=== PATIENT | male | born 1940 | race Caucasian/White ===

== ENCOUNTER → 2017-07-29 18:20 | Outpatient (CLI) | payer MEDICARE, OTHER, SELFPAY ==
[2017-07-29 18:22] LABS: Bacteria 0 SEEN /hpf (None Seen); Mucous, Urine 0 SEEN /hpf (<or=2+); Red Blood Cells-Urine 0 SEEN /hpf (0-5); Squamous Epithelial Cells - UA 0 SEEN /hpf (0-5); White Blood Cells 0 SEEN /hpf (0-5)
[2017-07-29 18:47] LABS: Color, Urine Yellow (Yellow); Glucose, Dipstick Normal (Normal); Ketone-Dipstick Negative (Negative); Leukocyte Esterase-Dipstick 25 /ul (Negative); Nitrite-Dipstick Negative (Negative); Occult Blood-Urine Negative /ul (Negative); Protein-Dipstick Negative (Negative); Urine Bilirubin Dipstick Negative (Negative); Urine Clarity Clear (Clear); Urine Urobilinogen Normal (Normal)
== END ==
PROVIDERS: Family Provider Internal Medicine; PCP Internal Medicine; Visit Provider Physician Assistant
DX: N39.0 Urinary tract infection, site not specified (principal); R10.9 Unspecified abdominal pain
CPT/HCPCS: 81001; 87086

== ENCOUNTER → 2017-08-10 13:16 | Outpatient (CLI) | payer MEDICARE, OTHER, SELFPAY ==
[2017-08-10 13:42] LABS: Absolute Lymphocyte Count 1.82 X10^3/ul (0.83-4.51); Absolute Neutrophil Count 5.2 X10^3/uL (2.0-7.7); Basophil# 0.01 X10^3/uL; Basophil% 0.1 % (0-1); Eosinophil# 0.11 X10^3/uL; Eosinophils% 1.4 % (0-5); Hematocrit 42.9 % (40-54); Lymphocyte # 1.82 X10^3/ul (4.0); Lymphocyte % 23.7 % (19-41); Mean Corpuscular Hgb 31.2 pg (27.0-32.0); Mean Corpuscular Volume 89.2 fL (80-94); Mean Platelet Vol. 9.9 fl (6.2-12.0); Monocyte# 0.48 X10^3/uL; Monocyte% 6.3 % (0-10); Neutrophil # 5.24 X10^3/uL (2.7-7.7); Neutrophil % 68.2 % (47-70); Platelet Count 212 K/mm3 (150-450); RBC Distribution Width CV 12.7 % (11.6-14.6); RBC Distribution Width SD 40.6 fl (35.1-43.9); Red Blood Count 4.81 M/mm3 (4.6-6.2); White Blood Count 7.7 K/mm3 (4.4-11.0)
[2017-08-10 13:44] LABS: POSITIVE COUNT NO; POSITIVE DIFFERENTIAL NO; POSITIVE MORPHOLOGY NO
[2017-08-10 14:10] LABS: ALB/GLOB Ratio 1.2 RATIO (0.9-2.4); AST(SGOT) 16 U/L (15-37); Alanine Aminotransfer ALT/SGPT 30 U/L (16-61); Albumin, Serum 4.2 g/dL (3.2-5.0); Alkaline Phosphatase 58 U/L (45-117); Anion Gap 6 (5-15); BUN 16 mg/dL (7-18); BUN/Creat Ratio 19.1 RATIO (10-20); Calcium,Total 9.3 mg/dL (8.5-10.1); Chloride 101 mmol/L (98-107); Creatinine, Serum 0.84 mg/dL (0.70-1.30); EST Glomerular Filtration Rate 95 mL/min (>60); Est Glom Filt Rate - Afr Amer 115 mL/min (>60); Globulin 3.5 g/dL (2.2-4.2); Glucose 130 mg/dL (74-106); Potassium 3.5 mmol/L (3.5-5.1); Protein, Total 7.7 g/dL (6.4-8.2); Sodium Level 137 mmol/L (136-145)
== END ==
PROVIDERS: Nurse Practitioner Family; Family Provider Internal Medicine; PCP Internal Medicine; Visit Provider Internal Medicine
DX: Z00.00 Encounter for general adult medical examination without abnormal findings (principal); I10 Essential (primary) hypertension
CPT/HCPCS: 36415; 80053; 85025

== ENCOUNTER → 2017-08-16 13:32 | Outpatient (CLI) | payer MEDICARE, OTHER, SELFPAY ==
[2017-08-16 13:34] LABS: Bacteria 0 SEEN /hpf (None Seen); Mucous, Urine 0 SEEN /hpf (<or=2+); Squamous Epithelial Cells - UA 0 SEEN /hpf (0-5); White Blood Cells 0 SEEN /hpf (0-5)
[2017-08-16 13:48] LABS: Color, Urine Yellow (Yellow); Glucose, Dipstick Normal (Normal); Ketone-Dipstick Negative (Negative); Leukocyte Esterase-Dipstick Negative /ul (Negative); Nitrite-Dipstick Negative (Negative); Occult Blood-Urine 10 /ul (Negative); Protein-Dipstick Negative (Negative); Specific Gravity, Urine 1.015 (1.002-1.030); Urine Bilirubin Dipstick Negative (Negative); Urine Clarity Clear (Clear); Urine Urobilinogen Normal (Normal)
[2017-08-16 13:56] LABS: Red Blood Cells-Urine 0-5 SEEN /hpf (0-5)
== END ==
PROVIDERS: Family Provider Internal Medicine; PCP Internal Medicine; Visit Provider Internal Medicine
DX: R10.31 Right lower quadrant pain (principal)
CPT/HCPCS: 81001

== ENCOUNTER → 2017-08-18 15:56 | Outpatient (CLI) | payer MEDICARE, OTHER, SELFPAY ==
--- NOTE | 2017-08-18 15:57 | CT_ITS ---
STUDY: CT ABDOMEN AND PELVIS WITH CONTRAST REASON FOR EXAM: Male, 76 years old. Right-sided abdominal pain RADIATION DOSAGE (If Supplied By Facility): CTDIvol = ( 16.94 ) mGy, DLP = ( 1089.01 ) mGycm TECHNIQUE: Transaxial images were obtained from the dome of the diaphragm to the symphysis pubis with oral contrast. 100ml ml of Isovue 300 contrast was administered. Sagittal and coronal images were reconstructed. Individualized dose optimization techniques were used for this CT. COMPARISON: None. FINDINGS: The visualized lung bases are clear. The visualized portions of the heart and pericardium are within normal limits. There are no calcified gallstones present. The liver is within normal limits. There are no suspicious hepatic lesions. The spleen is normal in size. The pancreas is within normal limits. The adrenal glands are within normal limits. There are no obstructing renal stones. There is no hydronephrosis. There are no focal renal lesions. Normal visualized stomach. There is no bowel obstruction or inflammation. The appendix is visualized and appears normal. The aorta is normal in caliber. There is no abdominal or pelvic free air, free fluid, fluid collection or lymphadenopathy. There are no destructive osseous lesions. CT/Abdomen/Pelvis WITH Contrast IMPRESSION: Unremarkable contrast-enhanced CT of the abdomen and pelvis. Electronically Signed: Kartik Givens, at 16:33 EDT Tel , Service support ,
== END ==
PROVIDERS: Family Provider Internal Medicine; PCP Internal Medicine; Visit Provider Internal Medicine
DX: R10.31 Right lower quadrant pain (principal)
CPT/HCPCS: 74177; Q9967

== ENCOUNTER → 2018-04-25 13:39 | Outpatient (CLI) | payer MEDICARE, SELFPAY ==
[2018-01-10 10:16] VITALS: BMI 25.2
== END ==
PROVIDERS: Family Provider Internal Medicine; PCP Internal Medicine; Referring Provider Urology; Visit Provider Urology
DX: Z12.5 Encounter for screening for malignant neoplasm of prostate (principal)
CPT/HCPCS: 36415; 84153; G0103

== ENCOUNTER → 2018-06-26 08:31 | Outpatient (CLI) | payer MEDICARE, SELFPAY ==
[2018-06-23 08:07] VITALS: BMI 26.1
[2018-06-26 12:51] LABS: Absolute Lymphocyte Count 1.51 X10^3/ul (0.83-4.51); Absolute Neutrophil Count 3.4 X10^3/uL (2.0-7.7); Basophil# 0.01 X10^3/uL; Basophil% 0.2 % (0-1); Eosinophil# 0.16 X10^3/uL; Eosinophils% 2.9 % (0-5); Hematocrit 43.4 % (40-54); Hemoglobin 14.5 g/dl (13.0-16.5); Lymphocyte # 1.51 X10^3/ul (4.0); Lymphocyte % 27.2 % (19-41); Mean Corp Hgb Conc 33.4 g/gl (32-36); Mean Corpuscular Volume 92.7 fL (80-94); Mean Platelet Vol. 10.3 fl (6.2-12.0); Monocyte# 0.43 X10^3/uL; Monocyte% 7.7 % (0-10); Neutrophil # 3.43 X10^3/uL (2.7-7.7); Neutrophil % 61.8 % (47-70); Platelet Count 211 K/mm3 (150-450); RBC Distribution Width CV 12.6 % (11.6-14.6); RBC Distribution Width SD 41.9 fl (35.1-43.9); Red Blood Count 4.68 M/mm3 (4.6-6.2); White Blood Count 5.6 K/mm3 (4.4-11.0)
[2018-06-26 12:52] LABS: POSITIVE COUNT NO; POSITIVE DIFFERENTIAL NO; POSITIVE MORPHOLOGY NO
[2018-06-26 13:09] LABS: ALB/GLOB Ratio 1.2 RATIO (0.9-2.4); AST(SGOT) 15 U/L (15-37); Alanine Aminotransfer ALT/SGPT 28 U/L (16-61); Albumin, Serum 3.9 g/dL (3.2-5.0); Alkaline Phosphatase 51 U/L (45-117); Anion Gap 6 (5-15); BUN 26 mg/dL (7-18); Calcium,Total 8.4 mg/dL (8.5-10.1); Chloride 107 mmol/L (98-107); Cholesterol 174 mg/dL (200); Creatinine, Serum 0.87 mg/dL (0.70-1.30); EST Glomerular Filtration Rate 91 mL/min (>60); Est Glom Filt Rate - Afr Amer 110 mL/min (>60); Globulin 3.2 g/dL (2.2-4.2); Glucose 93 mg/dL (74-106); High Density Lipoprotein 42 mg/dL; Potassium 3.6 mmol/L (3.5-5.1); Protein, Total 7.1 g/dL (6.4-8.2); Sodium Level 140 mmol/L (136-145); Triglycerides 66 mg/dL; Very Low Density Lipoprotein 13 mg/dL (5-40)
== END ==
PROVIDERS: Family Provider Internal Medicine; PCP Internal Medicine; Visit Provider Internal Medicine
DX: I10 Essential (primary) hypertension (principal)
CPT/HCPCS: 36415; 80053; 80061; 85025

== ENCOUNTER → 2018-12-22 08:21 | Outpatient (CLI) | payer MEDICARE, SELFPAY ==
[2018-12-22 08:02] VITALS: BMI 25.6
[2018-12-22 12:37] LABS: Anion Gap 7 (5-15); BUN 14 mg/dL (7-18); BUN/Creat Ratio 17.4 RATIO (10-20); Calcium,Total 8.9 mg/dL (8.5-10.1); Chloride 106 mmol/L (98-107); EST Glomerular Filtration Rate 99 mL/min (>60); Est Glom Filt Rate - Afr Amer 119 mL/min (>60); Glucose 92 mg/dL (74-106); Potassium 3.9 mmol/L (3.5-5.1); Sodium Level 142 mmol/L (136-145)
== END ==
PROVIDERS: Family Provider Internal Medicine; PCP Internal Medicine; Visit Provider Internal Medicine
DX: I10 Essential (primary) hypertension (principal)
CPT/HCPCS: 36415; 80048

== ENCOUNTER → 2019-02-21 13:15 | Outpatient (CLI) | payer MEDICARE, SELFPAY ==
[2018-12-22 08:02] VITALS: BMI 25.6
--- NOTE | 2019-02-21 14:47 | NEURO ---
NCS and/or EMG Patient Report Ordering Doctor: Hamzah Flanagan DATE OF SERVICE: 02/21/19 Tee Saleem is a 78-year-old male presents for electrodiagnostic testing of the right upper limb. He reports numbness and tingling in the right hand Electrodiagnostic findings: Right median motor nerve demonstrates prolonged distal latency with normal amplitude and reduced conduction velocity. Normal right ulnar motor response. Prolonged right median F-wave. Prolonged right median sensory latency at the wrist. Prolonged right median palmar latency. On needle EMG, all muscles tested in the right upper limb showed no evidence of denervation with normal motor unit action potentials. Electrodiagnostic impression: This is an abnormal study in the right upper limb. 1. Electrodiagnostic findings demonstrate right-sided median mononeuropathy. This is consistent with a moderate right carpal tunnel syndrome. If there are any further questions, please do not hesitate to contact me
== END ==
PROVIDERS: Family Provider Internal Medicine; PCP Internal Medicine; Referring Provider Specialist; Visit Provider Specialist
DX: R20.2 Paresthesia of skin (principal)
CPT/HCPCS: 95886; 95909

== ENCOUNTER 2019-03-12 13:09 | Day surgery (SDC) | payer MEDICARE, SELFPAY ==
[2018-12-22 08:02] VITALS: BMI 25.6
[2019-03-12] VITALS (7 sets, daily range): BP systolic 127–149; BP diastolic 69–77; PULSE 55–67; RESP 16; TEMP 36.1–36.7; O2SAT 97–98; BMI 25.0
[2019-03-12] MEDS: Lactated Ringers 1,000 ML 100 ML IV (14:07)
--- NOTE | 2019-03-12 16:05 | PCM.OPRPT ---
Report of Operation Date of Procedure: 03/12/19 Pre-Operative Diagnosis: CTS right Post-Operative Diagnosis: same Surgery/Procedure Performed:: RDTCL right Type of Anesthesia:: Marilyn Grant Anesthesiologist: Beck Amaya Estimated Blood Loss (mL): minimal - Admit VTE Documentation VTE Present on Admission: No VTE Mechan Device Prophylaxis: SCD's VTE Pharm Prophylaxis ordered?: No Reason prophylaxis not ordered:: Treatment Not Indicated
== END 2019-03-12 17:10 | disposition home or self-care (01) ==
LOC: SDC 13:17 → AC 13:21
PROVIDERS: Family Provider Internal Medicine; PCP Internal Medicine; Referring Provider Orthopaedic Surgery; Visit Provider Orthopaedic Surgery
PROC: (CPT 64721; principal; 2019-03-12 15:50)
DX: G56.01 Carpal tunnel syndrome, right upper limb (principal); I10 Essential (primary) hypertension; K21.9 Gastro-esophageal reflux disease without esophagitis; Z79.82 Long term (current) use of aspirin; Z79.899 Other long term (current) drug therapy
CPT/HCPCS: 01810; 64721; J7120

== ENCOUNTER → 2019-03-20 15:24 | Outpatient (CLI) | payer MEDICARE, SELFPAY ==
[2019-03-19 11:02] VITALS: BMI 25.0
[2019-03-20 17:36] LABS: Absolute Lymphocyte Count 2.23 X10^3/uL (0.83-4.51); Absolute Neutrophil Count 8.4 X10^3/uL (2.0-7.7); Basophil# 0.03 X10^3/uL; Basophil% 0.3 % (0-1); Eosinophil# 0.13 X10^3/uL; Eosinophils% 1.1 % (0-5); Hematocrit 40.4 % (40-54); Hemoglobin 13.1 g/dL (13.0-16.5); Lymphocyte # 2.23 X10^3/ul (4.0); Lymphocyte % 18.9 % (19-41); Mean Corp Hgb Conc 32.4 g/dL (32-36); Mean Corpuscular Hgb 30.3 pg (27.0-32.0); Mean Corpuscular Volume 93.5 fL (80-94); Mean Platelet Vol. 9.2 fl (6.2-12.0); Monocyte% 7.6 % (0-10); NRBC Flagged by Analyzer 0 % (0-5); Neutrophil # 8.38 X10^3/uL (2.7-7.7); Platelet Count 284 K/mm3 (150-450); RBC Distribution Width CV 12.7 % (11.6-14.6); RBC Distribution Width SD 43.8 fl (35.1-43.9); Red Blood Count 4.32 M/mm3 (4.6-6.2); White Blood Count 11.8 K/mm3 (4.4-11.0)
[2019-03-20 17:47] LABS: ALB/GLOB Ratio 0.8 RATIO (0.9-2.4); AST(SGOT) 9 U/L (15-37); Alanine Aminotransfer ALT/SGPT 27 U/L (16-61); Albumin, Serum 3.3 g/dL (3.2-5.0); Alkaline Phosphatase 55 U/L (45-117); Anion Gap 4 (5-15); BUN 22 mg/dL (7-18); BUN/Creat Ratio 27.3 RATIO (10-20); Calcium,Total 8.8 mg/dL (8.5-10.1); Chloride 100 mmol/L (98-107); Creatinine, Serum 0.81 mg/dL (0.70-1.30); EST Glomerular Filtration Rate 98 mL/min (>60); Est Glom Filt Rate - Afr Amer 119 mL/min (>60); Glucose 98 mg/dL (74-106); Potassium 3.8 mmol/L (3.5-5.1); Protein, Total 7.3 g/dL (6.4-8.2); Sodium Level 137 mmol/L (136-145)
== END ==
PROVIDERS: Family Provider Internal Medicine; PCP Internal Medicine; Referring Provider Internal Medicine; Visit Provider Internal Medicine
DX: R53.81 Other malaise (principal); R53.83 Other fatigue
CPT/HCPCS: 36415; 80053; 85025

== ENCOUNTER 2019-04-02 09:40 | Observation (INO) | payer MEDICARE, SELFPAY ==
[2019-03-20 16:50] VITALS: BMI 25.0
[2019-04-02 09:41] VITALS: BP 146/69; PULSE 96; RESP 17; TEMP 36.8; O2SAT 98; BMI 25.0
--- NOTE | 2019-04-02 10:16 | EKG12_ITS ---
Test Reason : OTHER PAIN Blood Pressure : / mmHG Vent. Rate : 095 BPM Atrial Rate : 095 BPM P-R Int : 142 ms QRS Dur : 098 ms QT Int : 338 ms P-R-T Axes : 016 024 020 degrees QTc Int : 424 ms Sinus rhythm with Premature supraventricular complexes Otherwise normal ECG Confirmed by LEIGHTON MON, BECKA ([id number]), editor at large SARIAH MEJIA ([id number]) on 04/04/2019 11:54:17 AM Referred By: Dago Elkins Confirmed By:BECKA MANZANARES MD
--- NOTE | 2019-04-02 10:18 | ED.VIS.GEN ---
History of Present Illness Chief Complaint: Other, Pain/Inj Informant: Patient, Family Onset: Today Maximum Severity: Mild Narrative: The patient complains of whole body joint pain that began late last night when he went to bed for unspecified no obvious reason indicates he woke any indicates every joint in his body shoulders elbows wrists knees hips ankles have discomfort he of chronic knee arthritis bilaterally right greater than left he has been receiving knee injections which she describes as a lubricant once a week scheduled for tomorrow , he had carpal tunnel surgery right wrist in January, he does not have a history of lupus or rheumatoid arthritis he also reports he is been up using the restroom more frequently but no dysuria back pain flank pain fever cough hematuria UTI history or prostatitis history and he has no issues urinating bowel habits unremarkable, the diffuse joint pain was such that he could not function at home he could get not get around the home and he was brought in for evaluation Past Medical History - Allergies and Home Meds Allergies/Adverse Reactions: Allergies No Known Allergies Allergy (Unverified 04/02/19 09:41) Primary Care Physician: Giselle Garrison MD [Primary Care Provider] - Past Medical History: - - The knee and right wrist issues as above to include the above Smoking Status: Never smoker Review of Systems General: Denies: Chills, Fever, Sweats Eyes: Denies: Visual changes - bilaterally, Diplopia ENT: Denies: Rhinorrhea, Sore throat Cardiovascular: Denies: Chest pain, Palpitations Respiratory: Denies: Dyspnea, Cough, Dyspnea on exertion Gastrointestinal: Denies: Abdominal pain, Nausea, Vomiting, Diarrhea, Melena, Hematochezia Genitourinary: Denies: Dysuria, Hematuria, Frequency Musculoskeletal: Reports: Arthralgias, Extremity Pain. Denies: Back pain Skin: Denies: Rash, Wounds Neurological: Denies: Headache, Weakness, Numbness Physical Exam Vital Signs/Narrative: Vital Signs Temp Pulse Resp BP Pulse Ox 04/02/19 09:41 98.2 F 96 17 146/69 H 98 General: Well nourished, Well developed, No Acute Distress Head: Normocephalic, Atraumatic Eyes: Perrl, EOMI ENT: Moist mucous membranes, No rhinorrhea Neck: Supple, Nontender Cardiovascular: Regular rate, Regular rhythm, No murmurs Respiratory: No distress, CTA bilaterally, Chest nontender Abdomen: Soft, Nontender, Nondistended, Normal bowel sounds Back: Nontender, Normal Inspection Extremities: Nontender, No edema, Edema Skin: Normal color, No rash Neurological: Alert, Oriented x3, Cranial nerves II-XII grossly intact, Normal Strength, Normal Sensation Psychological: Normal affect, Normal Mood Diagnostic/Tx/Re-eval - Medical Decision Making Complaining of whole body joint pain he has discomfort when his shoulders removed elbows removed wrist removed, the right wrist has a contusion postop there is no obvious signs of infection in any of his joints, the lower extremities complains of pain with movement of his hips his knees his ankles and feet, he has about 1+ edema to the lower extremities it does not appear to be new the right knee there is no obvious signs of effusion redness patella is in good position, there is no skin rash, there is been no trauma, extra use or exertional activity His vital signs are unremarkable he has been afebrile here and at home the whole body diffuse joint pain is unclear screening labs are obtained pain management Screening labs x-ray UA generally unremarkable sed rate 23 white count 13, on reevaluation his joint pain is slightly improved over the family reports he could barely walk at home they were basically is significant assisting him that did not believe he can be managed at home he will require admission given all the above I have contacted the hospitalist and for admission Admit stable Impression final diffuse arthralgias inability to ambulate ED Disposition - Plan for ED Patient: Diagnosis: Diffuse arthralgias inability to ambulat Referrals: Giselle Garrison MD [Primary Care Provider] -
--- NOTE | 2019-04-02 10:25 | RAD_ITS ---
STUDY: X-RAY CHEST REASON FOR EXAM: Male, 78 years old. Joint pain. TECHNIQUE: Single AP portable view of the chest. COMPARISON: None. FINDINGS: The lungs are clear and expanded. There is no demonstrated pleural abnormality. Normal size heart. Normal mediastinum and virgie. Normal visualized pulmonary arteries. There is atherosclerotic tortuosity of the aortic arch and descending thoracic aorta. There are diffuse degenerative changes of the visualized thoracic spine. Prior right rotator cuff surgery. There is no demonstrated abnormality of the visualized soft tissue structures of the upper abdomen. RAD/Chest 1 View (Portable) IMPRESSION: No acute abnormality is seen. Electronically Signed: Simone Callejas, at 11:03 EST , Service support ,
[2019-04-02 10:37] LABS: Erythrocyte Sedimentation Rate 23 mm/hr (0-20)
[2019-04-02 10:38] LABS: Absolute Lymphocyte Count 1.33 X10^3/uL (0.83-4.51); Absolute Neutrophil Count 9.9 X10^3/uL (2.0-7.7); Basophil# 0.08 X10^3/uL; Basophil% 0.6 % (0-1); Eosinophil# 0.08 X10^3/uL; Eosinophils% 0.6 % (0-5); Hematocrit 39.2 % (40-54); Hemoglobin 13.3 g/dL (13.0-16.5); Lymphocyte # 1.33 X10^3/ul (4.0); Lymphocyte % 10.2 % (19-41); Mean Corp Hgb Conc 33.9 g/dL (32-36); Mean Corpuscular Volume 91.4 fL (80-94); Mean Platelet Vol. 8.7 fl (6.2-12.0); Monocyte# 1.06 X10^3/uL; Monocyte% 8.2 % (0-10); NRBC Flagged by Analyzer 0 % (0-5); Neutrophil # 9.93 X10^3/uL (2.7-7.7); Neutrophil % 76.5 % (47-70); Platelet Count 372 K/mm3 (150-450); RBC Distribution Width CV 12.7 % (11.6-14.6); RBC Distribution Width SD 42.2 fl (35.1-43.9); Red Blood Count 4.29 M/mm3 (4.6-6.2)
[2019-04-02 10:58] VITALS: O2SAT 97
[2019-04-02] MEDS: morphine 8 MG/ML Syringe IV (10:59)
[2019-04-02] MEDS: Ondansetron 4 MG/2 ML Vial IV (11:00)
[2019-04-02] MEDS: 0.9% Normal Saline 1,000 ML 150 ML IV (11:00)
[2019-04-02 11:02] LABS: ALB/GLOB Ratio 0.8 RATIO (0.9-2.4); AST(SGOT) 8 U/L (15-37); Alanine Aminotransfer ALT/SGPT 20 U/L (16-61); Albumin, Serum 3.2 g/dL (3.2-5.0); Alkaline Phosphatase 50 U/L (45-117); Anion Gap 3 (5-15); BUN 24 mg/dL (7-18); BUN/Creat Ratio 31.5 RATIO (10-20); Calcium,Total 8.3 mg/dL (8.5-10.1); Chloride 101 mmol/L (98-107); Creatinine, Serum 0.76 mg/dL (0.70-1.30); EST Glomerular Filtration Rate 105 mL/min (>60); Est Glom Filt Rate - Afr Amer 127 mL/min (>60); Globulin 3.9 g/dL (2.2-4.2); Glucose 100 mg/dL (74-106); Potassium 3.8 mmol/L (3.5-5.1); Protein, Total 7.1 g/dL (6.4-8.2); Sodium Level 135 mmol/L (136-145)
[2019-04-02 11:03] LABS: Squamous Epithelial Cells - UA 0 SEEN /hpf (0-5)
[2019-04-02 11:07] LABS: Color, Urine Yellow (Yellow); Glucose, Dipstick Normal (Normal); Ketone-Dipstick 5 mg/dl (Negative); Leukocyte Esterase-Dipstick 25 /ul (Negative); Nitrite-Dipstick Negative (Negative); Occult Blood-Urine 10 /ul (Negative); Protein-Dipstick Negative (Negative); Urine Bilirubin Dipstick Negative (Negative); Urine Clarity Sl. Cloudy (Clear); Urine Urobilinogen Normal (Normal)
[2019-04-02 11:14] LABS: Bacteria RARE /hpf (None Seen); Mucous, Urine 1+ /hpf (<or=2+); Red Blood Cells-Urine 0-5 SEEN /hpf (0-5); White Blood Cells 0-5 SEEN /hpf (0-5)
[2019-04-02] MEDS: Ketorolac 30 MG/ML Syringe IV (12:33)
--- NOTE | 2019-04-02 13:21 | NURSING ---
320 TERELETSKY DIFFUSE JOINT PAIN AND INABILITY TO WALK OBS
[2019-04-02 14:37] VITALS: BMI 25.1
[2019-04-02 14:38] VITALS: BP 123/69; PULSE 73; RESP 16; TEMP 36.3; O2SAT 99
[2019-04-02 14:45] VITALS: BMI 25.1
[2019-04-02 15:59] VITALS: PULSE 77
--- NOTE | 2019-04-02 15:59 | PN_ITS ---
Subjective: Patient was seen and examined today in the emergency room at [facility], he came to the ER with complaints of diffuse joint pain-chiefly in his knees with inability to walk or stand easily, patient did not complain of any neck or back pain, he states his joints are stiff in his hands but he is able to use his hands appropriately. Patient has been getting injections in his right knee Dr. Chapa's office, it appears that this is hyaluronic acid. Work-up in the emergency room included labs which revealed an elevated white blood cell count at 13, BUN was slightly elevated at 24, C-reactive protein was elevated at 60.6, urinalysis was unremarkable. There were no imaging studies obtained on the patient's knees or hands, chest x-ray was unremarkable. I talked to the patient in the emergency room, his and daughter were present at time of my examination, it appears that he is having a hard time ambulating due to knee pain and he wants to be admitted to the hospital for further care, I will have physical therapy see him and place him on IV Decadron and reevaluate him tomorrow. - Physical Exam Vitals/I&O's: Vital Signs Temp Pulse Resp BP Pulse Ox 97.3 F L 73 16 123/69 H 99 04/02/19 14:38 04/02/19 14:38 04/02/19 14:38 04/02/19 14:38 04/02/19 14:38 Oxygen Delivery Method Room Air Weight: 87.543 kg Body Mass Index (BMI) 25.1 General: Alert, Oriented x3, Cooperative, No apparent distress, Well developed, Well nourished HEENT: Atraumatic, PERRLA, EOMI, Normocephalic Neck: Supple, No JVD, Negative Carotid Bruits Lungs: Clear to auscultation, Normal air movement Cardiovascular: Regular rate, No murmurs Abdomen: Bowel Sounds Present, Soft, Non Tender Extremities: No edema, Capillary Refill Less than 3 Seconds Skin: No rashes, No breakdown Musculoskeletal: No Tenderness to Palpation of Joints or Extremities Neurological: Cranial nerves II-XII grossly intact Psych/Mental Status: Normal Affect, Appropriate Laboratory Results 04/02/19 10:00: Urine Color Yellow, Urine Clarity Sl. Cloudy, Urine pH 5.0, Ur Specific [place] 1.020, Urine Protein Negative, Urine Glucose (UA) Normal, Urine Ketones 5 H, Urine Occult Blood 10 H, Urine Nitrite Negative, Urine Bilirubin Negative, Urine Urobilinogen Normal, Ur Leukocyte Esterase 25 H, Urine RBC 0-5 SEEN, Urine WBC 0-5 SEEN, Ur Squamous Epith Cells 0 SEEN, Urine Bacteria RARE, Urine Mucus 1+ 04/02/19 10:23: WBC 13.0 H, RBC 4.29 L, Hgb 13.3, Hct 39.2 L, MCV 91.4, MCH 31.0, MCHC 33.9, RDW Std Deviation 42.2, RDW Coeff of Lynne 12.7, Plt Count 372, MPV 8.7, Immature Gran % (Auto) 3.900 H, Neut % (Auto) 76.5 H, Lymph % (Auto) 10.2 L, [place] % (Auto) 8.2, Eos % (Auto) 0.6, Baso % (Auto) 0.6, Absolute Neuts (auto) 9.9 H, Absolute Lymphs (auto) 1.33, Nucleated RBC % 0, ESR 23 H 04/02/19 10:23: Sodium 135 L, Potassium 3.8, Chloride 101, Carbon Dioxide 31.0, Anion Gap 3 L, BUN 24 H, Creatinine 0.76, Estim Creat Clear Calc 68.80, Est GFR (MDRD) Af Amer 127, Est GFR (MDRD) Non-Af 105, BUN/Creatinine Ratio 31.5 H, Glucose 100, Calcium 8.3 L, Total Bilirubin 0.60, AST 8 L, ALT 20, Alkaline Phosphatase 50, Troponin I < 0.015, Total Protein 7.1, Albumin 3.2, Globulin 3.9, Albumin/Globulin Ratio 0.8 L 04/02/19 10:23: C-React Prot Ext Range 60.60 H Current Medications Hydrocodone Bitart/Acetaminophen ([place] 5mg-325mg) 1 tablet PO Q6H PRN PRN PRN Reason: Pain Score 4-10/10 Aspirin (Ecotrin) 81 mg PO DAILYCM [facility] Dexamethasone Sodium Phosphate (Decadron) 4 mg IV Q6 [facility] Heparin Sodium (Porcine) (Heparin Na) 5,000 unit SC Q12 [facility] Hydrochlorothiazide () 12.5 mg PO QHS [facility] Losartan Potassium (Cozaar) 50 mg PO QHS [facility] Ondansetron HCl (Zofran) 4 mg IV Q8H PRN PRN PRN Reason: NAUSEA/VOMITING Pantoprazole Sodium (Protonix) 40 mg PO QHS [facility] Sodium Chloride () 10 - 40 ml IV UD PRN PRN Reason: SALINE FLUSH Medical Necessity - Tobacco Use Smoking Status: Former smoker Tobacco Use: Cigarettes, Cigars Assessment/Plan All Active Problems (Last Reviewed 03/20/19 @ 14:07 by Halie Silvestre) Right groin pain (Acute) Strain of right inguinal muscle (Acute)
--- NOTE | 2019-04-02 16:05 | HP.PCM_ITS ---
Problem List (1) Diffuse joint pain Status: Acute (2) DIFFICULTY AMBULATING Status: Acute History of Present Illness Date of Admission: 04/02/19 Chief Complaint: Diffuse joint pain, difficulty ambulating The patient is a 78 year old M who was seen and examined today in the emergency room at [facility], he came to the ER with complaints of diffuse joint pain-chiefly in his knees-with inability to walk or stand easily, this began at 6 AM this morning, patient did not complain of any neck or back pain, he states his joints are stiff in his hands but he is able to use his hands appropriately. Patient did not complain of any swelling of any joints. Patient has been getting hyaluronic acid injections in his right knee at Dr. Chapa's office. Work-up in the emergency room included labs which revealed an elevated white blood cell count at 13, BUN was slightly elevated at 24, C-reactive protein was elevated at 60.6, urinalysis was unremarkable. There was no imaging studies obtained on the patient's knees or hands, chest x-ray was unremarkable. I talked with the patient in the emergency room, his and daughter were present at the time of my examination, it appears that he is having a hard time ambulating due to knee pain and he wants to be admitted to the hospital for further care, I will have physical therapy see him and placed him on IV Decadron and reevaluate him tomorrow. Past Medical History Past Medical History (Chronic Problems): Chronic Problems (Last Reviewed 03/20/19 @ 14:07 by Halie Silvestre) GERD (gastroesophageal reflux disease) (Chronic) Hypertension (Chronic) Hypertension (Chronic) Medical History: Medical History (Last Reviewed 03/20/19 @ 14:07 by Halie Silvestre) Hypertension (Chronic) I10 Allergies No Known Allergies Allergy (Unverified 04/02/19 09:41) Home Medications: Ambulatory Orders Medication Instructions Recorded diphenhydramine 25 mg capsule 25 mg PO QHS 04/05/17 aspirin 81 mg tablet,delayed 81 mg PO QHS 12/22/18 release Olmesartan/Hydrochlorothiazide 1 tab PO QHS 03/08/19 [Olmesartan-Hctz 20-12.5 mg Tab] esomeprazole magnesium 40 mg 40 mg PO QHS #90 cap 03/08/19 capsule,delayed release tramadol 50 mg tablet 50 mg PO DAILY 03/20/19 Surgical History: Surgical History (Last Reviewed 03/20/19 @ 14:07 by Halie Silvestre) H/O carpal tunnel repair Z98.890 03/12/19 Rotator cuff tear, left M75.102 lumbarectomy Surgical History: - - Lumbar laminectomy L4/L5, left rotator cuff surgery, right carpal tunnel surgery Psychiatric History: No pertinent psych hx Lives: Spouse/ Significant Other Smoking Status: Former smoker Tobacco Use: Cigarettes, Cigars Alcohol: None Drugs: None - *Family History Maternal Family History: Family History (Last Reviewed 03/20/19 @ 14:07 by Halie Silvestre) Father Cancer Mother Hypertension Myocardial infarction History Items: No pertinent history Paternal Family History: Family History (Last Reviewed 03/20/19 @ 14:07 by Halie Silvestre) Father Cancer Mother Hypertension Myocardial infarction History Items: No pertinent history Review of Systems Constitutional: Denies: Anorexia, Chills, Fever, Night Sweats, Malaise, Weakness, Weight Change, Fatigue Eyes: Denies: Cataracts, Conjunctivae Inflammation, Double vision, Drainage, Redness HEENT: Denies: Difficulty Swallowing, Dysphasia, Ear Pain, Eye Pain, Hearing Changes, Nasal bleeding, Nasal Congestion, Post Nasal Drip Cardiovascular: Denies: Chest Pain, Claudication, Chest Pressure, Chest Tightness, Edema, Heaviness, Orthopnea, Palpitations Respiratory: Denies: Cough, Hemoptysis, Pleuritic Pain, Shortness of Breath, Shortness of breath at rest, Shortness of breath upon exertion Gastrointestinal: Denies: Abdominal Pain, Constipation, Diarrhea, Hematemesis, Hematochezia, Nausea, Melena, Vomiting Genitourinary: Denies: Dysuria, Frequency, Hematuria, Hesitancy, Urgency Musculoskeletal: Reports: Joint Pain - Knee pain bilaterally and hand stiffness, Joint stiffness - Hand stiffness. Denies: Back Pain, Foot Pain, Joint swelling, Neck Pain, Shoulder Pain Skin: Denies: Dryness, Jaundice, Pruritis, Rash Neurological: Denies: Blurred vision, Double vision, Slurred speech, Difficulty swallowing, Focal weakness, Numbness, Tingling Psychiatric: Denies: Anxiety, Depression, Homicidal Ideations, Suicidal Ideations Endocrine: Denies: Change in Body Habitus, Heat/ Cold Intolerance, Polydipsia, Polyuria Hematologic/ Lymphatic: Denies: Adenopathy, Anemia, Easy Bruising, Easy Bleeding, Petechiae, Purpura VTE Information - Inpt Only VTE Present on Admission: No VTE Mechan Device Prophylaxis: None VTE Pharm Prophylaxis ordered?: Yes Patient Problems: Active and Suspected Problems (Last Reviewed 03/20/19 @ 14:07 by Halie Silvestre) Diffuse joint pain (Acute) DIFFICULTY AMBULATING (Acute) - Physical Exam Vitals/I&O's: Vital Signs Temp Pulse Resp BP Pulse Ox 97.3 F L 73 16 123/69 H 99 04/02/19 14:38 04/02/19 14:38 04/02/19 14:38 04/02/19 14:38 04/02/19 14:38 Oxygen Delivery Method Room Air Weight: 87.543 kg Body Mass Index (BMI) 25.1 General: Alert, Oriented x3, Cooperative HEENT: Atraumatic, PERRLA, EOMI, Normocephalic Oral: Moist Mucosa Neck: Supple, No JVD, Negative Carotid Bruits, No Nuchal Rigidity, Trachea Midline, Thyroid Normal Size and Texture Lungs: Clear to auscultation, Normal air movement, No rhonchi, No wheeze, No rales Cardiovascular: Regular rate, Regular Rhythm, Normal S1, Normal S2, No murmurs Abdomen: Bowel Sounds Present, Soft, Non Tender, Non-Distended, No hernias noted Extremities: No clubbing, No cyanosis, No edema, Capillary Refill Less than 3 Seconds Skin: No rashes, No breakdown Musculoskeletal: Arthritic Changes - Generalized enlargement of both knees are noted, Tenderness - Right knee is mildly tender to palpation Neurological: Cranial nerves II-XII grossly intact, Neuro grossly intact, Sensory exam intact to light touch and pain, Coordination normal Psych/Mental Status: Normal Affect, Appropriate, Alert and oriented to time, place, person, mood and affect Laboratory Results 04/02/19 10:00: Urine Color Yellow, Urine Clarity Sl. Cloudy, Urine pH 5.0, Ur Specific [place] 1.020, Urine Protein Negative, Urine Glucose (UA) Normal, Urine Ketones 5 H, Urine Occult Blood 10 H, Urine Nitrite Negative, Urine Bilirubin Negative, Urine Urobilinogen Normal, Ur Leukocyte Esterase 25 H, Urine RBC 0-5 SEEN, Urine WBC 0-5 SEEN, Ur Squamous Epith Cells 0 SEEN, Urine Bacteria RARE, Urine Mucus 1+ 04/02/19 10:23: WBC 13.0 H, RBC 4.29 L, Hgb 13.3, Hct 39.2 L, MCV 91.4, MCH 31.0, MCHC 33.9, RDW Std Deviation 42.2, RDW Coeff of Lynne 12.7, Plt Count 372, MPV 8.7, Immature Gran % (Auto) 3.900 H, Neut % (Auto) 76.5 H, Lymph % (Auto) 10.2 L, [place] % (Auto) 8.2, Eos % (Auto) 0.6, Baso % (Auto) 0.6, Absolute Neuts (auto) 9.9 H, Absolute Lymphs (auto) 1.33, Nucleated RBC % 0, ESR 23 H 04/02/19 10:23: Sodium 135 L, Potassium 3.8, Chloride 101, Carbon Dioxide 31.0, Anion Gap 3 L, BUN 24 H, Creatinine 0.76, Estim Creat Clear Calc 68.80, Est GFR (MDRD) Af Amer 127, Est GFR (MDRD) Non-Af 105, BUN/Creatinine Ratio 31.5 H, Glucose 100, Calcium 8.3 L, Total Bilirubin 0.60, AST 8 L, ALT 20, Alkaline Phosphatase 50, Troponin I < 0.015, Total Protein 7.1, Albumin 3.2, Globulin 3.9, Albumin/Globulin Ratio 0.8 L 04/02/19 10:23: C-React Prot Ext Range 60.60 H Current Medications Hydrocodone Bitart/Acetaminophen ([place] 5mg-325mg) 1 tablet PO Q6H PRN PRN PRN Reason: Pain Score 4-10/10 Aspirin (Ecotrin) 81 mg PO DAILYCM [facility] Dexamethasone Sodium Phosphate (Decadron) 4 mg IV Q6 [facility] Heparin Sodium (Porcine) (Heparin Na) 5,000 unit SC Q12 [facility] Hydrochlorothiazide () 12.5 mg PO QHS [facility] Losartan Potassium (Cozaar) 50 mg PO QHS [facility] Ondansetron HCl (Zofran) 4 mg IV Q8H PRN PRN PRN Reason: NAUSEA/VOMITING Pantoprazole Sodium (Protonix) 40 mg PO QHS [facility] Sodium Chloride () 10 - 40 ml IV UD PRN PRN Reason: SALINE FLUSH Assessment/Plan All Active Problems (Last Reviewed 03/20/19 @ 14:07 by Halie Silvestre) Diffuse joint pain (Acute) DIFFICULTY AMBULATING (Acute) Right groin pain (Resolved) Strain of right inguinal muscle (Resolved) #1 diffuse joint pain-more prominent in the knees particularly the right knee- probably secondary to OA flareup-patient will be placed into observation status on MedSurg, he will be placed on IV Decadron, he will be seen by PT and OT. I do not believe the patient has a septic joint infection. #2 essential hypertension-patient is to remain on his present medication #3 GERD Code Visit OBSV E&M: [id number] Initial observation care L3
[2019-04-02] MEDS: dexAMETHasone 4 MG/ML Vial IV ×2 (18:07→23:47)
[2019-04-02] MEDS: 0.9% Saline Lock 10 ML Syringe IV (18:07)
[2019-04-02 19:48] VITALS: BP 160/77; PULSE 78; RESP 16; TEMP 36.6; O2SAT 98
[2019-04-02] MEDS: HYDROcodone Bitartrate/Apap 5/325 Tablet PO (21:52)
[2019-04-02] MEDS: Pantoprazole Sodium 40 MG Tablet PO (21:52)
[2019-04-02] MEDS: hydroCHLOROthiazide 12.5mg 12.5 MG PO (21:52)
[2019-04-02] MEDS: Losartan Potassium 50 MG Tablet PO (21:52)
[2019-04-02] MEDS: Heparin Injection (Vial) 5,000 UNIT/ML VIAL 5000 UNIT SC (21:52)
[2019-04-03 02:01] VITALS: BP 132/73; PULSE 77; RESP 18; TEMP 36.7; O2SAT 99
[2019-04-03] MEDS: dexAMETHasone 4 MG/ML Vial IV (05:35)
[2019-04-03] MEDS: 0.9% Saline Lock 10 ML Syringe IV (05:35)
[2019-04-03 05:52] LABS: Absolute Lymphocyte Count 0.61 X10^3/uL (0.83-4.51); Absolute Neutrophil Count 7.1 X10^3/uL (2.0-7.7); Basophil# 0.02 X10^3/uL; Basophil% 0.2 % (0-1); Hematocrit 35.1 % (40-54); Hemoglobin 11.7 g/dL (13.0-16.5); Lymphocyte # 0.61 X10^3/ul (4.0); Lymphocyte % 7.5 % (19-41); Mean Corp Hgb Conc 33.3 g/dL (32-36); Mean Corpuscular Hgb 30.3 pg (27.0-32.0); Mean Corpuscular Volume 90.9 fL (80-94); Mean Platelet Vol. 8.9 fl (6.2-12.0); Monocyte# 0.16 X10^3/uL; NRBC Flagged by Analyzer 0 % (0-5); Neutrophil # 7.09 X10^3/uL (2.7-7.7); Neutrophil % 87.8 % (47-70); Platelet Count 328 K/mm3 (150-450); RBC Distribution Width CV 12.4 % (11.6-14.6); RBC Distribution Width SD 41.1 fl (35.1-43.9); Red Blood Count 3.86 M/mm3 (4.6-6.2); White Blood Count 8.1 K/mm3 (4.4-11.0)
[2019-04-03 07:45] VITALS: BP 124/69; PULSE 76; RESP 16; TEMP 36.4; O2SAT 93
[2019-04-03] MEDS: Heparin Injection (Vial) 5,000 UNIT/ML VIAL 5000 UNIT SC (10:04)
--- NOTE | 2019-04-03 10:20 | DCINST_ITS ---
- Discharge Diagnoses Current Active Problems: Current Active and Chronic Problems (Last Reviewed 03/20/19 @ 14:07 by Halie Silvestre) Diffuse joint pain (Acute) DIFFICULTY AMBULATING (Acute) You will use the following diet at home:: No restrictions Your food should be the consistency of: Regular Your liquids should be the consistency of: Regular/Thin Discharge Activity: Return to Normal Activity Weight Bearing Status: Full weight bearing Allergies/Adverse Reactions: Allergies No Known Allergies Allergy (Unverified 04/02/19 09:41) Medications to take at Discharge diphenhydramine HCl 25 mg capsule 25 mg PO QHS 04/05/17 aspirin 81 mg tablet,delayed release 81 mg PO QHS 12/22/18 Olmesartan/Hydrochlorothiazide [Olmesartan-Hctz 20-12.5 mg Tab] 1 tab PO QHS 03/08/19 esomeprazole magnesium 40 mg capsule,delayed release 40 mg PO QHS #90 cap 03/08/19 tramadol 50 mg tablet 50 mg PO DAILY 03/20/19 Primary Care Physician: Giselle Garrison MD [Primary Care Provider] - Test Results: Test results from this visit will be discussed in further detail at your follow- up appointment, if applicable. Please Follow Up With: Adam Chapa, When: as scheduled
[2019-04-03 11:15] VITALS: BP 149/74; PULSE 83; RESP 16; TEMP 36.5; O2SAT 96
[2019-04-03] MEDS: MethylPREDNISolone Acetate 80 MG/ML Vial IM (11:50)
--- NOTE | 2019-04-05 17:49 | DS.PCM_ITS ---
Discharge Date and Diagnosis Date of Admission: 04/02/19 Date of Discharge: 04/03/19 - Primary Discharge Diagnosis #1 flareup of osteoarthritis #2 essential hypertension #3 GERD #4 leukocytosis-etiology unknown - Secondary Discharge Diagnosis Chronic Problems (Last Reviewed 03/20/19 @ 14:07 by Halie Silvestre) GERD (gastroesophageal reflux disease) (Chronic) Hypertension (Chronic) Hypertension (Chronic) Hospital Course and Treatment Operations: None Procedures: None Summary of Care Provided: The patient is a 78 year old M who was seen in the emergency room at [facility] with a chief complaint of diffuse joint pain, chiefly in his knees. Work-up in the emergency room revealed the patient's white blood cell count to be elevated at 13, BUN was slightly elevated to 24, C-reactive protein was elevated at 60.6. Patient was given analgesics in the emergency room but felt that he was not stable for discharge home and requested admission to the hospital. Patient was placed in observation status on MedSurg 3, he was placed on IV corticosteroids, the next day, patient was seen and examined and had minimal knee pain and wanted to be discharged home. Patient had not been seen by physical therapy but he stated that he did not feel it was necessary to see PT and OT. Patient's repeat CBC showed a normal white blood cell count. On examination he appeared in good health and spirits. Vital signs as documented. Skin warm and dry and without overt rashes. Neck without JVD. Lungs clear. Heart exam notable for regular rhythm, normal sounds and absence of murmurs, rubs or gallops. Abdomen unremarkable and without evidence of organomegaly, masses, or abdominal aortic enlargement. Extremities nonedematous. Neuro: Cranial nerves II through XII are grossly intact, no focal motor deficits were noted, sensation to light touch and pinprick intact. Psych: Patient is alert and oriented x3, he does not appear anxious or depressed On 04/03/2019, patient was seen and examined and felt to be in stable condition for discharge home - Physical Exam Vitals/I&O's: Vital Signs Temp Pulse Resp BP Pulse Ox 97.7 F L 83 16 149/74 H 96 04/03/19 11:15 04/03/19 11:15 04/03/19 11:15 04/03/19 11:15 04/03/19 11:15 Oxygen Delivery Method Room Air Weight: 87.543 kg Body Mass Index (BMI) 25.1 Microbiology Past 72 Hours 04/02/19 10:00 Urine, Clean Catch Urine Culture - Final Culture exhibits no growth. Discharge Activity: Return to Normal Activity Weight Bearing Status: Full weight bearing Home Medications: Medications to take at Discharge diphenhydramine HCl 25 mg capsule 25 mg PO QHS 04/05/17 aspirin 81 mg tablet,delayed release 81 mg PO QHS 12/22/18 Olmesartan/Hydrochlorothiazide [Olmesartan-Hctz 20-12.5 mg Tab] 1 tab PO QHS 03/08/19 esomeprazole magnesium 40 mg capsule,delayed release 40 mg PO QHS #90 cap 03/08/19 tramadol 50 mg tablet 50 mg PO DAILY 03/20/19 Primary Care Physician: Giselle Garrison MD [Primary Care Provider] - Please Follow Up With: Adam Chapa DO When: as scheduled Disposition: Home Minutes spent on discharge:: 30 Patient Condition:: Stable Medical Necessity - Tobacco Use Smoking Status: Former smoker Tobacco Use: Cigarettes, Cigars Meaningful Use Info Meaningful Use Diagnoses (Choose all that apply): None applicable Code Visit OBSV E&M: 22204 Observation care discharge
== END 2019-04-03 12:26 | disposition home or self-care (01) ==
LOC: ED 10:49 → MS3 18:19
PROVIDERS: Admitting Provider Internal Medicine; Emergency Provider Emergency Medicine; Family Provider Internal Medicine; PCP Internal Medicine; Referring Provider Internal Medicine; Visit Provider Internal Medicine
DX: M17.0 Bilateral primary osteoarthritis of knee (principal); K21.9 Gastro-esophageal reflux disease without esophagitis; D72.829 Elevated white blood cell count, unspecified; I10 Essential (primary) hypertension; Z79.899 Other long term (current) drug therapy; Z79.82 Long term (current) use of aspirin; R26.2 Difficulty in walking, not elsewhere classified; Z87.891 Personal history of nicotine dependence
CPT/HCPCS: 36415; 71045; 80048; 80053; 81001; 84484; 85025; 86140; 87086; 93005; 96361; 96372; 96374; 96375; 96376; 99218; 99283; A4216; G0378; J2405

== ENCOUNTER → 2019-04-09 10:57 | Outpatient (CLI) | payer MEDICARE, SELFPAY ==
[2019-04-09 10:24] VITALS: BMI 25.1
[2019-04-09 11:18] LABS: Absolute Lymphocyte Count 3.38 X10^3/uL (0.83-4.51); Absolute Neutrophil Count 15.9 X10^3/uL (2.0-7.7); Basophil# 0.08 X10^3/uL; Basophil% 0.4 % (0-1); Eosinophil# 0.08 X10^3/uL; Eosinophils% 0.4 % (0-5); Hematocrit 42.7 % (40-54); Hemoglobin 14.1 g/dL (13.0-16.5); Lymphocyte # 3.38 X10^3/ul (4.0); Lymphocyte % 15.5 % (19-41); Mean Corpuscular Hgb 30.3 pg (27.0-32.0); Mean Corpuscular Volume 91.8 fL (80-94); Mean Platelet Vol. 8.8 fl (6.2-12.0); Monocyte# 1.61 X10^3/uL; Monocyte% 7.4 % (0-10); NRBC Flagged by Analyzer 0 % (0-5); Neutrophil # 15.89 X10^3/uL (2.7-7.7); Neutrophil % 72.8 % (47-70); POSITIVE DIFFERENTIAL YES; Platelet Count 332 K/mm3 (150-450); RBC Distribution Width CV 12.9 % (11.6-14.6); RBC Distribution Width SD 43.1 fl (35.1-43.9); Red Blood Count 4.65 M/mm3 (4.6-6.2); White Blood Count 21.8 K/mm3 (4.4-11.0)
[2019-04-09 11:28] LABS: Differential Indicated SCAN CRITERIA MET
[2019-04-09 12:09] LABS: Platelet Estimate ADEQUATE (ADEQ); Red Cell Morphology NORM C+C NORMAL (NORM C&C)
[2019-04-10 11:32] LABS: Pathologist Review Reviewed
== END ==
PROVIDERS: Family Provider Internal Medicine; PCP Internal Medicine; Referring Provider Internal Medicine; Visit Provider Internal Medicine
DX: R53.81 Other malaise (principal); R53.83 Other fatigue; R79.82 Elevated C-reactive protein (CRP)
CPT/HCPCS: 36415; 85025; 86140

== ENCOUNTER 2019-04-15 11:10 | Emergency (ER) | payer MEDICARE, SELFPAY ==
[2019-04-09 10:24] VITALS: BMI 25.1
[2019-04-15 11:11] VITALS: BP 141/66; PULSE 75; PULSE 88; RESP 14; RESP 17; TEMP 37; O2SAT 96; O2SAT 98; BMI 24.7
[2019-04-15 12:52] VITALS: TEMP 37
--- NOTE | 2019-04-15 13:05 | RAD_ITS ---
STUDY: X-RAY CHEST REASON FOR EXAM: Male, 78 years old. Fever. TECHNIQUE: Single frontal view of the chest. COMPARISON: April 02, 2019 FINDINGS: Mild hyperexpansion with granulomatous calcification, unchanged. There is no demonstrated pleural abnormality. Stable borderline cardiomegaly. Normal mediastinum and virgie. Normal visualized pulmonary arteries. Normal visualized aortic arch and descending thoracic aorta. Normal visualized thoracic spine. Postsurgical changes of rotator cuff repair on the right. There is no demonstrated abnormality of the visualized soft tissue structures of the upper abdomen. RAD/Chest 1 View (Portable) IMPRESSION: No interval change and no acute finding. Electronically Signed: Mookie Cox MD at 13:31 EST , Service support ,
--- NOTE | 2019-04-15 13:05 | EKG12_ITS ---
Test Reason : DYSRHYTHMIA Blood Pressure : / mmHG Vent. Rate : 078 BPM Atrial Rate : 078 BPM P-R Int : 154 ms QRS Dur : 102 ms QT Int : 358 ms P-R-T Axes : 031 001 006 degrees QTc Int : 408 ms Normal sinus rhythm Inferior infarct , age undetermined Abnormal ECG Confirmed by SYD MON, JOHNNIE ([id number]), metropolitan editor SARIAH MEJIA ([id number]) on 04/17/2019 9:42:17 AM Referred By: JERRY Confirmed By:JOHNNIE VELARDE MD
[2019-04-15] MEDS: 0.9% Normal Saline 1,000 ML 1000 ML IV (13:57)
[2019-04-15 14:15] LABS: Absolute Lymphocyte Count 1.37 X10^3/uL (0.83-4.51); Absolute Neutrophil Count 7.7 X10^3/uL (2.0-7.7); Basophil# 0.02 X10^3/uL; Basophil% 0.2 % (0-1); Eosinophil# 0.04 X10^3/uL; Eosinophils% 0.4 % (0-5); Hematocrit 36.2 % (40-54); Hemoglobin 12.1 g/dL (13.0-16.5); Lymphocyte # 1.37 X10^3/ul (4.0); Lymphocyte % 13.6 % (19-41); Mean Corp Hgb Conc 33.4 g/dL (32-36); Mean Corpuscular Hgb 30.4 pg (27.0-32.0); Mean Platelet Vol. 9.3 fl (6.2-12.0); Monocyte# 0.86 X10^3/uL; Monocyte% 8.5 % (0-10); NRBC Flagged by Analyzer 0 % (0-5); Neutrophil # 7.68 X10^3/uL (2.7-7.7); Neutrophil % 75.9 % (47-70); Platelet Count 252 K/mm3 (150-450); RBC Distribution Width CV 12.6 % (11.6-14.6); RBC Distribution Width SD 41.6 fl (35.1-43.9); Red Blood Count 3.98 M/mm3 (4.6-6.2); White Blood Count 10.1 K/mm3 (4.4-11.0)
[2019-04-15] MEDS: oxyCODONE 5 MG Tablet PO (14:18)
[2019-04-15 14:30] LABS: Anion Gap 5 (5-15); BUN 19 mg/dL (7-18); BUN/Creat Ratio 27.1 RATIO (10-20); CPK Total, Creatine Kinase 35 U/L (39-308); Calcium,Total 8.6 mg/dL (8.5-10.1); Chloride 100 mmol/L (98-107); EST Glomerular Filtration Rate 116 mL/min (>60); Est Glom Filt Rate - Afr Amer 140 mL/min (>60); Glucose 101 mg/dL (74-106); Potassium 3.8 mmol/L (3.5-5.1); Sodium Level 136 mmol/L (136-145)
[2019-04-15 14:38] LABS: Lactic Acid 0.8 mmol/L (0.4-1.9)
--- NOTE | 2019-04-15 14:38 | ED.DCSUM_ITS ---
History of Present Illness Informant: Patient Narrative: 78 year-old male presents with concern for myalgias. States that 2 weeks ago he had right carpal tunnel repair. States 2 days following he began having aching in his lower and upper extremities. Was seen by emergency physician in this department who treated with pain medication as well as steroids. Patient then developed sore throat was seen by an ENT and diagnosed with a systemic Streptococcus infection. She was given Augmentin at that time and is now taken 4 days of this medication. States that he continues to have aching and is having worsening trouble ambulating. He denies any headache, vision change, neck pain, chest pain, shortness of breath, nausea, vomiting, abdominal pain. Patient denies drugs or alcohol. <Veto Doty - Last Filed: 04/15/19 18:18> <Dayron Serrano - Last Filed: 04/15/19 23:48> Chief Complaint: General Illness Past Medical History Prior records reviewed: Yes Past Medical History: - - Hypertension and GERD Surgical History: - - Lumbar laminectomy L4/L5, left rotator cuff surgery, right carpal tunnel surgery Lives: Spouse/ Significant Other Smoking Status: Never smoker Alcohol: None Drugs: None - Family History Maternal Family History: Family History (Last Reviewed 04/15/19 @ 14:40 by Veto Doty DO) Father Cancer Mother Hypertension Myocardial infarction Family History: Reports: No pertinent history Paternal Family History: Family History (Last Reviewed 04/15/19 @ 14:40 by Veto Doty DO) Father Cancer Mother Hypertension Myocardial infarction Family History: Reports: No pertinent history <Veto Doty - Last Filed: 04/15/19 18:18> - Family History Maternal Family History: Family History (Last Reviewed 04/15/19 @ 14:40 by Veto Doty DO) Father Cancer Mother Hypertension Myocardial infarction Paternal Family History: Family History (Last Reviewed 04/15/19 @ 14:40 by Veto Doty DO) Father Cancer Mother Hypertension Myocardial infarction <Dayron Serrano - Last Filed: 04/15/19 23:48> - Allergies and Home Meds Allergies/Adverse Reactions: Allergies No Known Allergies Allergy (Verified 04/15/19 11:11) Primary Care Physician: Giselle Garrison MD [Primary Care Provider] - Review of Systems General: Denies: Chills, Fever, Sweats Eyes: Denies: Visual changes - bilaterally, Diplopia ENT: Denies: Rhinorrhea, Sore throat Cardiovascular: Denies: Chest pain, Palpitations Respiratory: Denies: Dyspnea, Cough, Dyspnea on exertion Gastrointestinal: Denies: Abdominal pain, Nausea, Vomiting, Diarrhea, Melena, Hematochezia Genitourinary: Denies: Dysuria, Hematuria, Frequency Musculoskeletal: Reports: Myalgias. Denies: Back pain, Extremity Pain Skin: Denies: Rash, Wounds Neurological: Reports: Weakness. Denies: Headache, Numbness <Veto Doty - Last Filed: 04/15/19 18:18> Physical Exam Vital Signs/Narrative: Vital Signs Temp Pulse Resp BP Pulse Ox 04/15/19 12:52 98.6 F 04/15/19 11:11 98.6 F 88 17 141/66 H 98 Inital Vital Signs reviewed: Yes General: Well nourished, Well developed, No Acute Distress Head: Normocephalic, Atraumatic Eyes: Perrl, EOMI ENT: Moist mucous membranes, No rhinorrhea Neck: Supple, Nontender Cardiovascular: Regular rate, Regular rhythm, No murmurs Respiratory: No distress, CTA bilaterally, Chest nontender Abdomen: Soft, Nontender, Nondistended, Normal bowel sounds Back: Nontender, Normal Inspection Extremities: Nontender, No edema Skin: Normal color, No rash Neurological: Alert, Oriented x3, Cranial nerves II-XII grossly intact, Normal Strength, Normal Sensation Psychological: Normal affect, Normal Mood <Veto Doty - Last Filed: 04/15/19 18:18> Diagnostic/Tx/Re-eval Impressions Chest X-Ray 04/15/19 13:05 IMPRESSION: No interval change and no acute finding. Electronically Signed: Mookie Cox MD at 13:31 EST , Service support , 04/15/19 13:05 Chest 1 View (Portable) [RAD] Stat 04/15/19 13:20 Mucosa - Nasopharyngeal Influenza Types A,B Direct FA (CALLIE) - Final Laboratory Results 04/15/19 04/15/19 04/15/19 13:50 13:50 13:50 WBC 10.1 RBC 3.98 L Hgb 12.1 L Hct 36.2 L MCV 91.0 MCH 30.4 MCHC 33.4 RDW Std Deviation 41.6 RDW Coeff of Lynne 12.6 Plt Count 252 MPV 9.3 Immature Gran % (Auto) 1.400 H Neut % (Auto) 75.9 H Lymph % (Auto) 13.6 L Sequoyah % (Auto) 8.5 Eos % (Auto) 0.4 Baso % (Auto) 0.2 Absolute Neuts (auto) 7.7 Absolute Lymphs (auto) 1.37 Nucleated RBC % 0 Sodium 136 Potassium 3.8 Chloride 100 Carbon Dioxide 31.0 Anion Gap 5 BUN 19 H Creatinine 0.70 Estim Creat Clear Calc 68.80 Est GFR (MDRD) Af Amer 140 Est GFR (MDRD) Non-Af 116 BUN/Creatinine Ratio 27.1 H Glucose 101 Lactic Acid 0.8 Calcium 8.6 Total Creatine Kinase Troponin I < 0.015 Urine Color Urine Clarity Urine pH Ur Specific [place] Urine Protein Urine Glucose (UA) Urine Ketones Urine Occult Blood Urine Nitrite Urine Bilirubin Urine Urobilinogen Ur Leukocyte Esterase Urine RBC Urine WBC Ur Squamous Epith Cells Amorphous Sediment Urine Bacteria Urine Mucus 04/15/19 04/15/19 13:50 15:33 WBC RBC Hgb Hct MCV MCH MCHC RDW Std Deviation RDW Coeff of Lynne Plt Count MPV Immature Gran % (Auto) Neut % (Auto) Lymph % (Auto) Sequoyah % (Auto) Eos % (Auto) Baso % (Auto) Absolute Neuts (auto) Absolute Lymphs (auto) Nucleated RBC % Sodium Potassium Chloride Carbon Dioxide Anion Gap BUN Creatinine Estim Creat Clear Calc Est GFR (MDRD) Af Amer Est GFR (MDRD) Non-Af BUN/Creatinine Ratio Glucose Lactic Acid Calcium Total Creatine Kinase 35 L Troponin I Urine Color Yellow Urine Clarity Sl. Cloudy Urine pH 7.0 Ur Specific [place] 1.010 Urine Protein Negative Urine Glucose (UA) Normal Urine Ketones Negative Urine Occult Blood Negative Urine Nitrite Negative Urine Bilirubin Negative Urine Urobilinogen Normal Ur Leukocyte Esterase Negative Urine RBC 0 SEEN Urine WBC 0 SEEN Ur Squamous Epith Cells 0-5 SEEN Amorphous Sediment 1+ PHOS Urine Bacteria 0 SEEN Urine Mucus 0 SEEN - Rhythm Strip Rhythm Strip: Sinus Rhythm Rate: 78 Ectopy: None - EKG Initial EKG Interpretation: Sinus Rhythm, - - Sinus rhythm at 78 bpm. LA interval 154 ms. QTc 408 ms. No evidence of ST elevation or depression. - Medical Decision Making Appears well nontoxic. Vital signs within normal limits. Patient able to ambulate within the department. Lab work within normal limits including CPK. Patient was given 1 L of normal saline as well as anti-inflammatories. Patient will be treated with prednisone as an outpatient. Given primary care as well as rheumatologic follow-up. Asked to return for new or worsening symptoms. Discharged home in stable condition. <Veto Doty - Last Filed: 04/15/19 18:18> - Medical Decision Making Patient was seen with me. I did a [id number] examination with the patient. Patient presents with myalgias and arthralgias that have been getting worse over the past few days. Patient had recent carpal tunnel surgery. Patient denies any nausea or vomiting. Patient denies any fevers or chills. Patient states he has multiple aches and pains in his joints. Vital signs are stable. Patient is afebrile. Patient is in no acute distress. Oral mucosa is pink and moist. Neck is supple. Trachea is midline. There is no JVD. Heart was regular rate and rhythm. Lungs are clear and equal bilaterally. There is somewhat limited range of motion in all of his joints including ankles, knees, hips, wrists, elbows, and shoulders. Lab was within normal limits. Patient was given IV fluids. Patient was given a prescription for prednisone. Patient was instructed to follow-up with his primary care physician in 5 to 7 days. Patient was also advised he may need to follow-up with the prepared foods associate. Patient and family understood and were agreeable with the plan. All questions were answered. <Dayron Serrano - Last Filed: 04/15/19 23:48> ED Disposition <Veto Doty - Last Filed: 04/15/19 18:18> <Dayron Serrano - Last Filed: 04/15/19 23:48> - Plan for ED Patient: Disposition: Home or Assisted Living Diagnosis: Arthralgia, Diffuse joint pain Instructions: Arthralgia Prescriptions: Prednisone 10 mg PO UD #33 tab Prescription Printed Referrals: Giselle Garrison MD [Primary Care Provider] -
[2019-04-15 15:37] LABS: Bacteria 0 SEEN /hpf (None Seen); Mucous, Urine 0 SEEN /hpf (<or=2+); Red Blood Cells-Urine 0 SEEN /hpf (0-5); White Blood Cells 0 SEEN /hpf (0-5)
[2019-04-15 15:38] VITALS: BP 134/76; BP 142/78; PULSE 87; PULSE 92; RESP 18; RESP 19; TEMP 36.8; O2SAT 97; O2SAT 99
[2019-04-15 15:40] LABS: Color, Urine Yellow (Yellow); Glucose, Dipstick Normal (Normal); Ketone-Dipstick Negative (Negative); Leukocyte Esterase-Dipstick Negative /ul (Negative); Nitrite-Dipstick Negative (Negative); Occult Blood-Urine Negative /ul (Negative); Protein-Dipstick Negative (Negative); Urine Bilirubin Dipstick Negative (Negative); Urine Clarity Sl. Cloudy (Clear); Urine Urobilinogen Normal (Normal)
[2019-04-15 15:53] LABS: Amorphous Sediment 1+ PHOS; Squamous Epithelial Cells - UA 0-5 SEEN /hpf (0-5)
[2019-04-15 16:34] VITALS: BP 148/82; PULSE 91; RESP 18; O2SAT 98
== END 2019-04-15 16:34 | disposition home or self-care (01) ==
PROVIDERS: Emergency Provider Emergency Medicine; Family Provider Internal Medicine; PCP Internal Medicine
DX: M25.50 Pain in unspecified joint (principal); I10 Essential (primary) hypertension
CPT/HCPCS: 71045; 80048; 81001; 82550; 83605; 84484; 85025; 87040; 87804; 93005; 99285

== ENCOUNTER → 2019-04-30 10:45 | Outpatient (CLI) | payer MEDICARE, SELFPAY ==
[2019-04-30 07:02] VITALS: BMI 24.7
[2019-04-30 11:01] LABS: Bacteria 0 SEEN /hpf (None Seen); Mucous, Urine 0 SEEN /hpf (<or=2+); Squamous Epithelial Cells - UA 0 SEEN /hpf (0-5)
[2019-04-30 11:03] LABS: Color, Urine Yellow (Yellow); Glucose, Dipstick Normal (Normal); Ketone-Dipstick Negative (Negative); Leukocyte Esterase-Dipstick Negative /ul (Negative); Nitrite-Dipstick Negative (Negative); Occult Blood-Urine 10 /ul (Negative); Protein-Dipstick Negative (Negative); Urine Bilirubin Dipstick Negative (Negative); Urine Clarity Clear (Clear); Urine Urobilinogen Normal (Normal)
[2019-04-30 11:10] LABS: Red Blood Cells-Urine 0-5 SEEN /hpf (0-5); White Blood Cells 0-5 SEEN /hpf (0-5)
== END ==
PROVIDERS: Family Provider Internal Medicine; PCP Internal Medicine; Referring Provider Physician Assistant Surgical; Visit Provider Physician Assistant Surgical
DX: R39.15 Urgency of urination (principal); R52 Pain, unspecified
CPT/HCPCS: 81001; 87086

== ENCOUNTER → 2019-05-03 15:45 | Outpatient (CLI) | payer MEDICARE, SELFPAY ==
[2019-05-03 15:08] VITALS: BMI 24.7
[2019-05-03 16:36] LABS: Erythrocyte Sedimentation Rate 36 mm/hr (0-20)
[2019-05-07 14:08] LABS: ANTINUCLEAR ANTIBODIES DIRECT Positive (Negative); Anti-Centromere B Ab <0.2 AI (0.0-0.9); Anti-Chromatin <0.2 AI (0.0-0.9); Anti-Jo <0.2 AI (0.0-0.9); Anti-Scleroderma-70 AB 0.2 AI (0.0-0.9); RNP Ab <0.2 AI (0.0-0.9); SJOGREN'S Anti-SS-A test < 0.2 AI (0.0-0.9); SJOGREN'S Anti-SS-B test < 0.2 AI (0.0-0.9); Smith Ab <0.2 AI (0.0-0.9)
[2019-05-07 16:30] LABS: Anti-dsDNA Ab 25 IU/mL (0-9)
[2019-05-29 20:45] LABS: Cytoplasmic Ab (C-ANCA) <1:20; Perinuclear Ab (P-ANCA) <1:20
== END ==
PROVIDERS: PCP Internal Medicine; Referring Provider Internal Medicine; Visit Provider Internal Medicine
DX: R53.81 Other malaise (principal); R53.83 Other fatigue; R79.82 Elevated C-reactive protein (CRP)
CPT/HCPCS: 36415; 85652; 86038; 86140; 86225; 86235; 86256

== ENCOUNTER → 2019-05-14 17:19 | Outpatient (CLI) | payer MEDICARE, SELFPAY ==
[2019-05-03 15:08] VITALS: BMI 24.7
[2019-05-14 18:21] LABS: Thyroid Stim Hormone (TSH) 1.38 uIU/mL (0.358-3.74)
== END ==
PROVIDERS: PCP Family Medicine Geriatric Medicine; Referring Provider Family Medicine Geriatric Medicine; Visit Provider Family Medicine Geriatric Medicine
DX: R53.83 Other fatigue (principal)
CPT/HCPCS: 36415; 84443

== ENCOUNTER → 2019-06-18 16:21 | Outpatient (CLI) | payer MEDICARE, SELFPAY ==
[2019-05-15 17:00] VITALS: BMI 24.7
== END ==
PROVIDERS: PCP Family Medicine Geriatric Medicine; Referring Provider Family Medicine Geriatric Medicine; Visit Provider Family Medicine Geriatric Medicine
DX: R50.9 Fever, unspecified (principal)
CPT/HCPCS: 87633

== ENCOUNTER → 2021-02-13 12:18 | Outpatient (CLI) | payer MEDICARE, SELFPAY ==
--- NOTE | 2021-02-13 12:21 | RAD_ITS ---
STUDY: X-RAY - CERVICAL SPINE REASON FOR EXAM: Male, 80 years old. Neck pain. TECHNIQUE: 2 view(s) of the cervical spine were obtained. COMPARISON: None FINDINGS: Osteopenia. Normal anterior atlantoaxial articulation. Normal odontoid process. Normal cervical lordosis. Diffuse uncovertebral and facet sclerosis. And intervertebral disc space narrowing at C5-6 and C6-7 with osteophyte formation most marked at C5-6. Right carotid calcification. RAD/Cerv Spine 2 or 3 Views IMPRESSION: Osteopenia with cervical spondylosis most marked at C5-6 and C6-7 as described. No acute abnormality or evidence of erosive changes or fusion. Electronically Signed: Mookie Cox MD at 13:52 EDT , Service support ,
--- NOTE | 2021-02-13 12:22 | RAD_ITS ---
STUDY: X-RAY - LEFT SHOULDER REASON FOR EXAM: Male, 80 years old. Left shoulder pain. TECHNIQUE: 4 view(s) of the shoulder. COMPARISON: None. FINDINGS: Osteopenia. Moderate arthrosis of the glenohumeral joint. Moderate arthrosis of the AC joint. Normal acromion. Sclerosis and cystic change at the humeral head. The soft tissue structures are unremarkable. Normal visualized pulmonary apex. RAD/Shoulder min 2 Views IMPRESSION: Osteopenia with osteoarthritic changes as described. No acute finding. Electronically Signed: Mookie Cox MD at 13:50 EDT , Service support ,
--- NOTE | 2021-02-13 12:22 | RAD_ITS ---
STUDY: X-RAY - RIGHT SHOULDER REASON FOR EXAM: Male, 80 years old. Shoulder pain. TECHNIQUE: 4 view(s) of the shoulder. COMPARISON: None. FINDINGS: Osteopenia. Mitek anchors in the humeral head from prior surgery. Moderate arthrosis of the left humeral joint. Moderate arthrosis of the AC joint. The soft tissue structures are unremarkable. Normal visualized pulmonary apex. RAD/Shoulder min 2 Views IMPRESSION: Osteopenia with osteoarthritic changes and postsurgical changes as described. No acute abnormality. Electronically Signed: Mookie Cox MD at 13:51 EDT , Service support ,
== END ==
PROVIDERS: PCP Internal Medicine; Referring Provider Internal Medicine; Visit Provider Internal Medicine
DX: M47.812 Spondylosis without myelopathy or radiculopathy, cervical region (principal); M19.012 Primary osteoarthritis, left shoulder; M19.011 Primary osteoarthritis, right shoulder
CPT/HCPCS: 72040; 73030

== ENCOUNTER → 2021-03-05 14:04 | Outpatient (CLI) | payer MEDICARE, SELFPAY ==
--- NOTE | 2021-03-05 14:07 | CDU_ITS ---
Reason For Study: Carotid artery plaque, right Rt. Velocities/BP Lt. Velocities/BP Prox CCA 124.7/7.9 cm/sec. Prox CCA 95.5/7.9 cm/sec. Mid CCA 72.8/6.5 cm/sec. Mid CCA 79.1/9.7 cm/sec. Dist CCA 56.9/6.5 cm/sec. Dist CCA 59.7/10.2 cm/sec. Prox ICA 45.8/11.4 cm/sec. Prox ICA 48.7/9.1 cm/sec. Mid ICA 79/13.9 cm/sec. Mid ICA 86.3/22.5 cm/sec. Dist ICA 104.9/16.4 cm/sec. Dist ICA 87.6/21.2 cm/sec. Rt. ICA/CCA = 1.44. Lt. ICA/CCA = 1.11. Prox ECA 93.7/7.7 cm/sec. Prox ECA 121.1/4.2 cm/sec. Rt. Vert. 49.9/11.5 cm/sec. Lt. Vert. 61.8/12.6 cm/sec. Right Extracranial There is homogeneous, smooth atherosclerotic plaque noted in the right common carotid artery. There is heterogeneous, irregular atherosclerotic plaque noted in the right internal carotid artery. The right internal carotid artery is very tortuous. There is intimal thickening but no significant atherosclerotic plaque noted in the right external carotid artery. Antegrade flow is noted in the right vertebral artery. Left Extracranial There is homogeneous, smooth atherosclerotic plaque noted in the left common carotid artery. There is heterogeneous, smooth atherosclerotic plaque noted in the left internal carotid artery. There is homogeneous, smooth atherosclerotic plaque noted in the left external carotid artery. Antegrade flow is noted in the left vertebral artery. Procedure Carotid Duplex 16839. This is a Carotid Duplex examination using B-mode, color flow and specral Doppler. Exam performed in department. VL/Carotid Duplex Ultrasound Interpretation Summary Mild (<50%) stenosis right extracranial internal carotid. Mild (<50%) stenosis left extracranial internal carotid. Flow within the vertebral arteries is antegrade bilaterally. Ordering Physician: Dalia Coley Referring Physician: Dalia Coley Performed By: Marcella Shetty RVT
== END ==
PROVIDERS: PCP Internal Medicine; Referring Provider Internal Medicine; Visit Provider Internal Medicine
DX: I65.23 Occlusion and stenosis of bilateral carotid arteries (principal)
CPT/HCPCS: 93880

== ENCOUNTER 2021-07-02 15:04 | Outpatient (CLI) | payer MEDICARE, SELFPAY ==
--- NOTE | 2021-07-02 15:12 | CT_ITS ---
EXAM: CT CHEST, ABDOMEN AND PELVIS WITH INTRAVENOUS CONTRAST CLINICAL INDICATION: NIGHT SWEATS TECHNIQUE: Helically acquired images were obtained of the chest, abdomen and pelvis with intravenous contrast. This CT exam was performed using one or more of the following dose reduction techniques: automated exposure control, adjustment of the mA and/or kV according to patient size, and/or use of iterative reconstruction technique. This report was created using [employer] report generation technology. CONTRAST: IV 100mL Isovue-300 COMPARISON: None. FINDINGS: CHEST: LUNGS AND PLEURAL SPACES: Unremarkable. No mass. No consolidation or edema. No pleural effusion or thickening. No pneumothorax. HEART: There are calcifications of the coronary arteries. Heart size is normal. No pericardial effusion. MEDIASTINUM: Unremarkable. No mediastinal or hilar adenopathy. Esophagus is unremarkable. No hiatal hernia. THYROID: Unremarkable. No thyroid lesions. ABDOMEN: LIVER: Unremarkable. Homogeneous. No focal mass. GALLBLADDER AND BILE DUCTS: Unremarkable. No calcified gallstones. No gallbladder distention or wall edema. No intra- or extrahepatic biliary ductal dilation. PANCREAS: Unremarkable. No focal cystic or solid mass. SPLEEN: Unremarkable. Normal size without focal cystic or solid mass. ADRENALS: Unremarkable. No nodules. KIDNEYS AND URETERS: There are hypodensities in the left kidney. These are consistent for cysts. No follow up required. Normal renal size and position. No hydronephrosis. STOMACH AND BOWEL: There are multiple colonic diverticula consistent with diverticulosis. No stomach or bowel distention. No focal inflammatory change. PELVIS: APPENDIX: The appendix is visualized and appears normal. BLADDER: Unremarkable. REPRODUCTIVE: Unremarkable as visualized. No mass. CHEST, ABDOMEN and PELVIS: INTRAPERITONEAL SPACE: Unremarkable. No ascites or other fluid collection. No free air. BONES/JOINTS: There is bilateral neural foraminal stenosis at L4-5 and L5-S1. There are degenerative changes of the shoulders. Right humeral anchors. There are multi-level degenerative changes of the thoracic spine. There are diffuse degenerative changes of the visualized lumbar spine. Degenerative findings of the hips. No suspicious lytic or blastic abnormality. SOFT TISSUES: There is an umbilical hernia containing fat. VASCULATURE: There is atherosclerotic calcification of the aortic arch with tortuosity and elongation of the aortic arch and descending thoracic aorta. There are calcifications of the abdominal aorta. This is consistent for atherosclerotic disease. There is no abdominal aortic aneurysm. No aortic dissection. No obvious central pulmonary embolism although this study was not performed with the pulmonary embolism protocol. LYMPH NODES: Normal inferior vena cava. Subcentimeter mesenteric lymph nodes. OTHER FINDINGS: There are no acute findings of the chest. Vacuum disc phenomenon. CT/CT Chest, Abd, Pel w/Contrast IMPRESSION: 1. There are no acute findings of the chest. 2. There is an umbilical hernia containing fat. 3. There is bilateral neural foraminal stenosis at L4-5 and L5-S1. Electronically Signed: Miquel Stockton MD at 15:58 EDT ,
[2021-07-02 15:26] LABS: CREATININE FINGERSTICK 0.9 mg/dL (0.70-1.30); EGFR FINGERSTICK > 60.0000 mL/min (>60)
== END 2021-07-02 23:59 | disposition home or self-care (01) ==
PROVIDERS: PCP Internal Medicine; Referring Provider Internal Medicine; Visit Provider Internal Medicine
DX: R61 Generalized hyperhidrosis (principal); K42.9 Umbilical hernia without obstruction or gangrene; M48.061 Spinal stenosis, lumbar region without neurogenic claudication; M48.07 Spinal stenosis, lumbosacral region
CPT/HCPCS: 71260; 74177; Q9967

== ENCOUNTER → 2021-11-30 | Outpatient (CLI) | payer MEDICARE, SELFPAY ==
--- NOTE | 2021-11-30 09:52 | RAD_ITS ---
STUDY: X-RAY - LUMBAR SPINE REASON FOR EXAM: Male, 81 years old. low back pain -- low back pain TECHNIQUE: XR Spine Lumbar Min 4 Views COMPARISON: 5.3.18 ct FINDINGS: Normal lumbar lordosis. There is no substantial scoliosis. There is a normal alignment of the vertebrae. There is a compression deformity of the spine at level: L1. These are age-indeterminate but new since 2018. MRI could further evaluate if of concern. There is multilevel endplate spondylosis of the lumbar vertebrae. There is multi-level degenerative disc disease with multi-level disc space narrowing. There are atherosclerotic vascular calcifications. The soft tissue structures are unremarkable. RAD/L/S Spine Min 4 Views IMPRESSION: Degenerative changes of the spine, as detailed above. There is a compression deformity of the spine at level: L1. These are age-indeterminate but new since 2018. MRI could further evaluate if of concern. Electronically Signed: Miquel Stockton MD at 14:46 EDT ,
== END | disposition home or self-care (01) ==
PROVIDERS: PCP Internal Medicine; Referring Provider Internal Medicine; Visit Provider Internal Medicine
DX: M47.816 Spondylosis without myelopathy or radiculopathy, lumbar region (principal); M51.36 Other intervertebral disc degeneration, lumbar region; M48.061 Spinal stenosis, lumbar region without neurogenic claudication
CPT/HCPCS: 72110

== ENCOUNTER → 2021-12-23 | Outpatient (CLI) | payer MEDICARE, SELFPAY ==
--- NOTE | 2021-12-23 15:18 | MRI_ITS ---
STUDY: MRI LUMBAR SPINE WITHOUT CONTRAST REASON FOR EXAM: Male, 81 years old patient with compression fracture of L1 shown on radiographs done on 11/30/21. TECHNIQUE: Standardized fat and water weighted pulse sequences were obtained in the sagittal and axial planes. COMPARISON: Radiographs of the lumbar spine dated 11/30/2021. FINDINGS: T12-L1: There is a moderate compression fracture superior endplate of L1. Estimated amount of compression is approximately 40% of expected height of this vertebral body. There is mild annular disk bulge and osteophyte complex. There is mild degenerative arthropathy of the facet joints. Bilateral neuroforamina are narrowed without MR evidence for nerve impingement. There is mild acquired central canal stenosis. There is straightening of the normal lumbar lordosis. There is no substantial scoliosis. Normal conus medullaris that terminates at the L1 level. L1-2: There is mild annular disk bulge and osteophyte complex. There is mild degenerative arthropathy of the facet joints. Bilateral neuroforamina are narrowed without MR evidence for nerve impingement. There is no appreciable acquired central canal stenosis. L2-3: There is moderately large annular disk bulge and osteophyte complex. There is moderately severe degenerative arthropathy of the facet joints. Bilateral neuroforamina are narrowed without MR evidence for nerve impingement. There is mild acquired central canal stenosis. L3-4: There is diffuse irregularity of the inferior endplate of L3 that may be the result of multiple Schmorl''s nodes. There is narrowing of this disc. There is moderately large annular disk bulge and osteophyte complex. There is degenerative arthropathy of the facet joints. Bilateral neuroforamina are narrowed without MR evidence for nerve impingement. There is mild acquired central canal stenosis. L4-5: The patient appears to have had right-sided laminectomy. There is moderately large annular disk bulge and osteophyte complex. There is mild degenerative arthropathy of the facet joints. Bilateral neuroforamina are narrowed without MR evidence for nerve impingement. There is no appreciable acquired central canal stenosis. L5-S1: There is mild annular disk bulge and osteophyte complex. There is mild degenerative arthropathy of the facet joints. Bilateral neuroforamina are narrowed without MR evidence for nerve impingement. There is no appreciable acquired central canal stenosis. There is diffuse heterogeneous signal throughout the marrow that may be secondary to reactivated hematopoietic marrow. Normal visualized sacral ala. Normal visualized paraspinous soft tissue structures. MRI/Spine Lumbar (Routine) IMPRESSION: 1. Acute moderate compression fracture of L1. 2. 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 Electronically Signed: Trini Lugo MD at 2:48 EDT ,
== END | disposition home or self-care (01) ==
PROVIDERS: PCP Internal Medicine; Visit Provider Internal Medicine
DX: S32.000A Wedge compression fracture of unspecified lumbar vertebra, initial encounter for closed fracture (principal)
CPT/HCPCS: 72148

== ENCOUNTER 2022-01-04 17:25 | Inpatient (IN) | payer MEDICARE, SELFPAY ==
[2022-01-04] VITALS (14 sets, daily range): BP systolic 156–181; BP diastolic 69–87; PULSE 66–80; RESP 14–18; TEMP 36.6–36.9; O2SAT 96–100; BMI 22.9; BMI 22.7
--- NOTE | 2022-01-04 18:39 | EKG12_ITS ---
Test Reason : DIZZINESS Blood Pressure : / mmHG Vent. Rate : 072 BPM Atrial Rate : 072 BPM P-R Int : 184 ms QRS Dur : 108 ms QT Int : 378 ms P-R-T Axes : 060 043 044 degrees QTc Int : 413 ms Normal sinus rhythm Normal ECG Confirmed by LEIGHTON MON, BECKA ([id number]), industrial editor SARIAH MEJIA ([id number]) on 01/06/2022 11:00:02 AM Referred By: BROOKS Confirmed By:BECKA MANZANARES MD
--- NOTE | 2022-01-04 18:51 | EDS_ITS ---
HPI History of Present Illness Chief Complaint: Dizziness Detail of Chief Complaint: Patient unable to ambulate because his balance is off Informant: patient and family Onset/Context/Timing Onset: - (He awoke this morning at 0500 with symptoms after clarification. He was last known well last evening at 2100 when he went to bed) Context: Sudden Onset Timing: Continuous Quality and Location: Positive for Difficulty with Ambulation Onset: Went to bed January 03 at 2100. Awoke this morning with symptoms Current Severity: Moderate Maximum Severity: Moderate Worsened by: Standing and unable to ambulate Relieved by: Nothing Associated Symptoms Associated Symptoms: Positive for Nausea; Negative for Headache, Vomiting or Chest Pain Narrative Narrative: Patient is a 81-year-old male with history of hypertension, GERD, who presents because of problems with balance. He was last known well at 2100 on January 03 when he went to bed. Upon awakening at 0500?0530 he had symptoms. He denies headache. Denies double vision, blurred vision loss of vision. No trouble speech or swallowing. Denies paresthesia, anesthesia motors. Does report nausea without vomiting. He has fallen several times because his balance is off. He denies history of stroke. Prior similar symptoms: No Recent Illness/Hospitalization: No PFSH PFSH Medical History Dizziness Hypertension Home Medications diphenhydramine HCl 25 mg capsule (Allergy Relief (diphenhydramine)) 25 mg PO QHS 04/05/17 [History Last Taken 04/01/19] esomeprazole magnesium 40 mg capsule,delayed release 40 mg PO QHS #90 caps 03/08/19 [Rx Last Taken 04/01/19] olmesartan 40 mg-hydrochlorothiazide 12.5 mg tablet 1 tab PO DAILY 12/04/20 [History Last Taken Unknown] Allergy/AdvReac Type Severity Reaction Status Date / Time No Known Allergies Allergy Verified 01/04/22 17:26 Family History Father Cancer Prostate CA Mother Hypertension Myocardial infarction at 73 of [place] and pulmonary HTN Surgical History H/O carpal tunnel repair lumbarectomy Rotator cuff tear, left Social History (Updated 01/04/22 @ 18:[address] Topher Lu MD) household members: none Smoking Status: Former smoker how long ago did patient quit smokin years ago alcohol intake: never substance use type: does not use what type of physical activity do you participate in: walking frequency: 5-6 times per week duration: 45-60 minutes/day seatbelt use: always ROS ROS ED Constitutional Constitutional ED: Denies chills, fever(s), subjective, sweats or weakness Eyes Eyes: Denies blurry vision, change in vision or diplopia ENT ENT ED: Denies ear pain, rhinorrhea or sore throat Cardiovascular Cardiovascular: Denies chest pain, palpitations, paroxysmal nocturnal dyspnea or racing heartbeat Respiratory/Chest Respiratory/Chest: Denies cough, dyspnea, dyspnea on exertion or paroxysmal nocturnal dyspnea Gastrointestinal Gastrointestinal: Reports nausea; Denies abdominal pain, constipation, diarrhea, melena or vomiting Genitourinary Genitourinary ED: Denies dysuria, hematuria or urinary frequency Musculoskeletal Musculoskeletal: Reports back pain; Denies arthralgias, myalgias or neck pain Integumentary Denies abscess, Abrasions or rash Neurologic Neurologic: Reports other Details: Per HPI ; Denies headache(s), paresthesias or weakness Psychiatric Psychiatric: Denies anxiety Hematologic/Lymphatic Hematologic/Lymphatic: Denies easy bleeding or easy bruising EXAM Physical Exam Const Vital Signs: 01/04/22 17:26 01/04/22 17:29 01/04/22 17:55 Temperature 97.9 F Temperature Source Temporal Pulse Rate 68 69 Respiratory Rate 18 18 Respiratory Effort Normal Non-Labored Respiratory Pattern Normal Blood Pressure 175/79 H 175/79 H Blood Pressure Mean 111 111 Pulse Ox 99 99 Oxygen Delivery Method Room Air Room Air 01/04/22 18:39 01/04/22 19:09 01/04/22 19:25 Temperature Temperature Source Pulse Rate 69 69 69 Respiratory Rate 18 16 16 Respiratory Effort Respiratory Pattern Blood Pressure 172/79 H 163/72 H 163/72 H Blood Pressure Mean 110 102 102 Pulse Ox 96 98 98 Oxygen Delivery Method Room Air Room Air Room Air Positive well nourished and well developed General Appearance ED: well developed and NAD HEENT Reports moist mucous membranes atraumatic Nose: other Other Details: Head is normocephalic. Ears normal. TMs normal. No cerumen in the external auditory canal. Nares patent. Uvula midline. No d eviation tongue or protrusion. Eyes PERRL and EOMs intact bilaterally Eyes Narrative: There is no nystagmus. There is no visual field cut. General Eye ED: Negative for pale conjunctiva, scleral icterus or other Neck no lymphadenopathy, supple and no JVD Chest Wall inspection of chest normal and palpation of chest normal Resp normal respiratory effort and clear to auscultation bilaterally Cardio Rate: regular rate Rhythm: regular rhythm Heart Sounds: S1 normal and S2 normal GI normal to inspection, nondistended, normoactive bowel sounds, soft to palpation, non-tender, non-distended and no masses Back/Spine no CVA tenderness Cervical Spine: Negative for cervical spine tenderness Thoracic Spine / Upper Back: Negative for thoracic spinal tenderness Lumbar Spine / Lower Back: Negative for lumbar spinal tenderness Extremity Extremity Narrative: He reports left shoulder pain due to rotator cuff and states the pain is worse because he slept on his left side. General Extremety ED: Negative for deformity, edema or tenderness General Extremity: Negative for deformity or edema Neuro oriented x3, CN's II-XII intact bilaterally and no sensory deficits noted Neuro Narrative: Patient has a Babinski sign on the left. He denies history of prior stroke or TIA. [place] Coma Scale: document GCS findings Spontaneous Obeys Commands Oriented 15 Sensorium / Orientation: alert, oriented to person, oriented to place and oriented to time Speech: speech normal Gait (Neuro): Negative for normal gait Sensory Exam: sensory level loss detected Motor Exam: strength 5/5 throughout Psych mental status grossly normal Skin no wounds General Skin Exam: Negative for jaundice Lesions: no lesions Rashes: no rashes NIHSS NIHSS Initial: 1a Level of Consciousness: 0 1b LOC Questions (Score 2 if aphasic/stupor): 0 1c LOC Commands (Only score 1st attempt): 0 2 Best Gaze (If aphasic, use reflexive mvmts.): 0 3 Visual: 0 4 Facial Palsy: 0 5 Motor Arm Right (UN = amputation/fusion): 0 5 Motor Arm Left: 0 6 Motor Leg Right: 0 6 Motor Leg Left: 0 7 Limb ataxia (Only + if out of proportion): 0 8 Sensory (Aphasia/stupor=0 or 1, coma=2): 0 9 Best Language: 0 10 Dysarthria (mute, coma=2, intubated=UN): 0 11 Extinction and Inattention (only scored if +): 0 Total Score: 0 MDM MDM MDM Narrative Medical decision making narrative: Even though patient's NIH is 0 concern he has had a cerebellar infarct. He is stances broad-based. He cannot stand without falling backwards. Unable to perform Romberg test with eyes open and close. Unable to assess gait because he falls. Stroke work-up was initiated. Lab Data Attestation: I reviewed the patient's lab results. Labs: Laboratory Results - last 24 hr 01/04/22 01/04/22 01/04/22 18:44 18:44 18:44 WBC 10.3 RBC 4.32 L Hgb 13.6 Hct 39.3 L MCV 91.0 MCH 31.5 MCHC 34.6 RDW Std Deviation 41.5 RDW Coeff of Lynne 12.6 Plt Count 227 MPV 9.4 Immature Gran % (Auto) 0.600 Neut % (Auto) 83.1 H Lymph % (Auto) 10.0 L [place] % (Auto) 6.0 Eos % (Auto) 0.2 Baso % (Auto) 0.1 Absolute Neuts (auto) 8.5 H Absolute Lymphs (auto) 1.03 Nucleated RBC % 0 PT 13.4 INR 1.1 APTT 39.0 H Sodium 137 Potassium 3.4 L Chloride 102 Carbon Dioxide 26.0 Anion Gap 9 BUN 19 H Creatinine 0.64 L Estim Creat Clear Calc 64.67 Est GFR (MDRD) Af Amer 154 Est GFR (MDRD) Non-Af 127 BUN/Creatinine Ratio 29.6 H Glucose 109 H Calcium 9.3 Troponin I High Sens 8 Radiography Diagnostic Testing: Clinical Impression(s) from Imaging Studies Chest X-Ray 01/04/22 19:05 IMPRESSION: ASHD. No acute cardiopulmonary pathology Electronically Signed: Olman Corado MD at 19:32 EDT Reading Location ID and State: [facility] - [place] / [place] , Service support , Brain CT 01/04/22 19:47 IMPRESSION: Mild atrophy and periventricular white matter ischemic change. No acute bleed.. If concern for acute infarct MRI recommended Electronically Signed: Olman Corado MD at 19:56 EDT , ADDENDUM: 01/04/222009 IMPRESSION: Mild atrophy and periventricular white matter ischemic change. No acute bleed.. If concern for acute infarct MRI recommended N.B. : The above Results were Read Back by Olman Corado MD to Topher Lu MD, MD, and understanding confirmed on 01/04/2022 20:03:27 (ET). Electronically Signed: Olman Corado MD at 19:56 EDT , Head/Neck CTA 01/04/22 19:47 IMPRESSION: Mild atherosclerotic change without evidence for hemodynamically significant stenosis Electronically Signed: Olman Corado MD at 20:16 EDT , ADDENDUM: 01/04/222028 IMPRESSION: Mild atherosclerotic change without evidence for hemodynamically significant stenosis N.B. : The above Results were Read Back by Olman Corado MD to Dr. Marito MD, and understanding confirmed on 01/04/2022 20:22:45 (ET). Electronically Signed: Olman Corado MD at 20:16 EDT , Single view chest x-ray reveals normal cardiac silhouette and size. Perihilar regions normal. Osseous trucks unremarkable. Stroke Documentation Questions Stroke Team Activated: Yes Reviewed Inclusion/Exclusion criteria: Yes IV Alteplase (t-PA) Administered: No (Outside the window) No contraindications for IV Alteplase (t-PA) administration.: No Alteplase (t-PA) risks, benefits, alternative discussed: No Discharge Plan Triage Chief Complaint: Dizziness ED Provider: Topher Lu Dx/Rx/DC Orders Clinical Impression: Cerebellar stroke syndrome, Hypertension, GERD (gastroesophageal reflux disease) Prescriptions: No Action diphenhydramine HCl [Allergy Relief(diphenhydramin)] 25 mg capsule 25 mg PO QHS olmesartan-hydrochlorothiazide 40-12.5 mg tablet 1 tab PO DAILY esomeprazole magnesium 40 mg capsule,delayed release(DR/EC) 40 mg PO QHS Qty: 90 3RF Rx Instructions: TAKE ONE CAPSULE BY MOUTH EVERY DAY Primary Care Provider: Dalia Coley Referrals: Dalia Coley DO [Primary Care Provider] - Disposition [facility]
--- NOTE | 2022-01-04 18:52 | ED.RN ---
states okay to wait for labs prior to CT scans. not calling stroke alert.
[2022-01-04 19:02] LABS: Absolute Lymphocyte Count 1.03 X10^3/uL (0.83-4.51); Absolute Neutrophil Count 8.5 X10^3/uL (2.0-7.7); Basophil# 0.01 X10^3/uL; Basophil% 0.1 % (0-1); Eosinophil# 0.02 X10^3/uL; Eosinophils% 0.2 % (0-5); Hematocrit 39.3 % (40-54); Hemoglobin 13.6 g/dL (13.0-16.5); Lymphocyte # 1.03 X10^3/ul (0.83-4.51); Mean Corp Hgb Conc 34.6 g/dL (32-36); Mean Corpuscular Hgb 31.5 pg (27.0-32.0); Mean Platelet Vol. 9.4 fl (6.2-12.0); Monocyte# 0.62 X10^3/uL; NRBC Flagged by Analyzer 0 % (0-5); Neutrophil # 8.51 X10^3/uL (2.7-7.7); Neutrophil % 83.1 % (47-70); Platelet Count 227 K/mm3 (150-450); RBC Distribution Width CV 12.6 % (11.6-14.6); RBC Distribution Width SD 41.5 fl (35.1-43.9); Red Blood Count 4.32 M/mm3 (4.6-6.2); White Blood Count 10.3 K/mm3 (4.4-11.0)
--- NOTE | 2022-01-04 19:05 | RAD_ITS ---
STUDY: X-RAY CHEST REASON FOR EXAM: Male, 81 years old. Neuro deficit, acute, stroke suspected TECHNIQUE: AP portable COMPARISON: None. FINDINGS: The lungs are clear and expanded. There is no demonstrated pleural abnormality. Heart is mildly enlarged. Normal mediastinum and virgie. Normal visualized pulmonary arteries. Mildly calcified aortic arch and descending thoracic aorta. Dorsal spine and shoulders demonstrate degenerative change. Normal visualized ribs, and clavicles. Postsurgical changes of the right shoulder There is no demonstrated abnormality of the visualized soft tissue structures of the upper abdomen. RAD/Chest 1 View IMPRESSION: ASHD. No acute cardiopulmonary pathology Electronically Signed: Olman Corado MD at 19:32 EDT ,
[2022-01-04 19:15] LABS: International Normalized Ratio 1.1; Prothrombin Time (Protime)PT. 13.4 SECONDS (11.7-14.9)
[2022-01-04 19:22] LABS: Anion Gap 9 (5-15); BUN 19 mg/dL (7-18); BUN/Creat Ratio 29.6 RATIO (10-20); Calcium,Total 9.3 mg/dL (8.5-10.1); Chloride 102 mmol/L (98-107); Creatinine, Serum 0.64 mg/dL (0.70-1.30); EST Glomerular Filtration Rate 127 mL/min (>60); Est Glom Filt Rate - Afr Amer 154 mL/min (>60); Estimated Creatinine Clearance 64.67 ml/min; Glucose 109 mg/dL (74-106); Potassium 3.4 mmol/L (3.5-5.1); Sodium Level 137 mmol/L (136-145); Troponin-I HS 8 pg/mL (3.0-78.0)
--- NOTE | 2022-01-04 19:47 | CT_ITS ---
We are attempting to reach an attending provider to discuss findings. An addendum with communication details will be sent when the communication is complete. STUDY: CTA HEAD AND NECK WITH CONTRAST REASON FOR EXAM: Male, 81 years old. Neuro deficit, acute, stroke suspected RADIATION DOSAGE (If Supplied By Facility): CTDIvol = ( 18.95 ) mGy, DLP = ( 725.17 ) mGycm TECHNIQUE: CT angiography was performed with a multi-detector CT scanner. Data acquisition was obtained from the skull base through the vertex following intravenous administration of IV 100mL [id number]-370. MIP images were reconstructed from the axial data set. Post-processing of the angiographic images was performed, with multiplanar reformation and 3D reconstruction. Individualized dose optimization techniques were used for this CT. COMPARISON: No relevant priors. FINDINGS: Normal bilateral petrous carotid arteries. Mild calcific plaquing of right cavernous carotid artery with a normal supraclinoid bifurcation. Mild calcific plaquing of the left cavernous carotid artery with a normal supraclinoid bifurcation. Normal right A1 segments of the anterior cerebral artery. Normal left A1 segments of the anterior cerebral artery.. Anterior communicating artery not visualized consistent with normal variant Normal bilateral A2 segments of the anterior cerebral arteries. Normal right M1 and M2 segments of the middle cerebral arteries, with a normal M1 bifurcation. Normal left M1 and M2 segments of the middle cerebral arteries, with a normal M1 bifurcation. Right posterior communicating artery not visualized consistent with normal variant. Normal left posterior communicating artery (PCOM). Normal bilateral vertebral arteries. Normal basilar artery with a normal basilar bifurcation. The visualized bilateral superior cerebellar (SCA) arteries are normal. Normal bilateral P1, P2 and visualized P3 segments of the posterior cerebral arteries. There is no demonstrated aneurysm of the picayune of [place]. AORTIC ARCH: Normal visualized aortic arch. Normal origins of the brachiocephalic, left common carotid, and left subclavian arteries. RIGHT CAROTID ARTERIES: Normal right common carotid artery (CCA). Mild calcific plaquing of the right common carotid bulb. Mild calcific plaquing of the origin of the right internal carotid (ICA) artery without a hemodynamically significant stenosis. Normal visualized cervical portion of the right internal carotid artery. Normal origin of the right external carotid artery (ECA). LEFT CAROTID ARTERIES: Normal left common carotid artery (CCA). Mild calcific plaquing of the left common carotid bulb. Mild calcific plaquing of the origin of the left internal carotid (ICA) artery without a hemodynamically significant stenosis. Normal visualized cervical portion of the left internal carotid artery. Normal origin of the left external carotid artery (ECA). VERTEBRAL ARTERIES: Normal bilateral vertebral arteries. CT/STROKE CTA Head AND Neck W/Con IMPRESSION: Mild atherosclerotic change without evidence for hemodynamically significant stenosis Electronically Signed: Olman Corado MD at 20:16 EDT ,
--- NOTE | 2022-01-04 19:47 | CT_ITS ---
We are attempting to reach an attending provider to discuss findings. An addendum with communication details will be sent when the communication is complete. STUDY: CT HEAD STROKE PROTOCOL W/O CONTRAST INJECTION REASON FOR EXAM: Male, 81 years old. 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 Individualized dose optimization techniques were used for this CT. COMPARISON: MRI brain 12/17/2016. FINDINGS: Normal soft tissue structures. Normal calvarium. Mild calcific plaquing of cavernous carotids and vertebral arteries. Mild atrophy and periventricular white matter ischemic changes. Normal basal ganglia and thalami. Normal brainstem. Normal cerebellum. There is no intracranial hemorrhage. There are no findings of an acute ischemic infarction. Normal visualized paranasal sinuses. ASPECT score: 10 CT/STROKE Brain/Head without Cont IMPRESSION: Mild atrophy and periventricular white matter ischemic change. No acute bleed.. If concern for acute infarct MRI recommended Electronically Signed: Olman Corado MD at 19:56 EDT ,
--- NOTE | 2022-01-04 20:58 | PCM.HP.STD ---
HPI - General General Date of Admission: 01/04/22 Date of Service: 01/04/22 Chief Complaint: loss of balance/ falling HPI Narrative LIA GALLEGOS, is a 81 M who presents to the emergency with chief complaint of loss of balance and has fallen several times today. Patient states that upon awakening this morning he felt dizzy, nauseous ,however, he did not describe the dizziness as a spinning rather it was just an overall lightheaded feeling. When he stands up he is not able to maintain his balance and he falls and has fallen frequently throughout the day. The patient denies any headache, chest pain, shortness of breath or recent fevers or chills. He denies any motor dysfunction regarding use of arms or legs and has no swallowing difficulty. Speech and memory are also intact. Initial CT scan of the head is negative for hemorrhage and CT angiogram was negative for acute findings. Due to continued discoordination the patient will be admitted for possible CVA and MRI MRA will be ordered for the morning. [facility] Medical History Dizziness Hypertension Home Medications diphenhydramine HCl 25 mg capsule (Allergy Relief (diphenhydramine)) 25 mg PO QHS 04/05/17 [History Last Taken 01/03/22] calcium carbonate 600 mg-vitamin D3 5 mcg (200 unit) tablet 1 tab PO DAILY SUPPLEMENT 01/04/22 [History Last Taken 01/03/22] coenzyme Q10 100 mg capsule (Co Q-10) 100 mg PO MOWEFR 01/04/22 [History Last Taken 01/01/22] glucosamine-chondroitin 250 mg-200 mg tablet 1 tab PO BID SUPPLEMENT 01/04/22 [History Last Taken 01/03/22] multivitamin 1 tab PO DAILY 01/04/22 [History Last Taken 01/03/22] omeprazole 20 mg capsule,delayed release 40 mg PO QHS 01/04/22 [History Last Taken 01/03/22] rosuvastatin 5 mg tablet (Crestor) 5 mg PO MOWEFR 01/04/22 [History Last Taken 01/01/22] valsartan 160 mg-hydrochlorothiazide 12.5 mg tablet 0.5 tab PO BID 01/04/22 [History Last Taken 01/03/22] Allergy/AdvReac Type Severity Reaction Status Date / Time No Known Allergies Allergy Verified 01/04/22 17:26 Family History Father Cancer Prostate CA Mother Hypertension Myocardial infarction at 73 of [place] and pulmonary HTN Surgical History H/O carpal tunnel repair lumbarectomy Rotator cuff tear, left Social History (Updated 01/04/22 @ 18:[address] Topher Lu MD) household members: none Smoking Status: Former smoker how long ago did patient quit smokin years ago alcohol intake: never substance use type: does not use what type of physical activity do you participate in: walking frequency: 5-6 times per week duration: 45-60 minutes/day seatbelt use: always ROS Constitutional Constitutional: Denies change in weight Eyes Eyes: Denies blurry vision ENT HEENT: Denies abnormal hearing, dysphagia or hearing loss Cardiovascular Cardiovascular: Denies chest pain or edema Respiratory/Chest Respiratory/Chest: Denies cough or shortness of breath at rest Gastrointestinal Gastrointestinal: Denies abdominal pain Genitourinary Genitourinary: Denies hematuria Musculoskeletal Musculoskeletal: Denies back pain Integumentary Integumentary: Denies jaundice Neurologic Neurologic: Reports abnormal gait, dizziness and lack of coordination Psychiatric Psychiatric: Denies anxiety Hematologic/Lymphatic Hematologic/Lymphatic: Denies easy bleeding Vital Signs Vital Signs Vital Signs: 01/04/22 17:26 01/04/22 17:29 01/04/22 17:55 Temperature 97.9 F Temperature Source Temporal Pulse Rate 68 69 Respiratory Rate 18 18 Respiratory Effort Normal Non-Labored Respiratory Pattern Normal Blood Pressure 175/79 H 175/79 H Blood Pressure Mean 111 111 Pulse Ox 99 99 Oxygen Delivery Method Room Air Room Air 01/04/22 18:39 01/04/22 19:09 01/04/22 19:25 Temperature Temperature Source Pulse Rate 69 69 69 Respiratory Rate 18 16 16 Respiratory Effort Respiratory Pattern Blood Pressure 172/79 H 163/72 H 163/72 H Blood Pressure Mean 110 102 102 Pulse Ox 96 98 98 Oxygen Delivery Method Room Air Room Air Room Air 01/04/22 19:30 01/04/22 20:00 01/04/22 20:30 Temperature 98.1 F 98.4 F 98.1 F Temperature Source Oral Oral Oral Pulse Rate 75 80 72 Respiratory Rate 15 14 17 Respiratory Effort Respiratory Pattern Blood Pressure 165/70 H 168/73 H 156/71 H Blood Pressure Mean 101 104 99 Pulse Ox 97 98 98 Oxygen Delivery Method Room Air Room Air Room Air Weight Weight: 174 lb Body Mass Index (BMI) 22.9 Physical Exam Const oriented x3, no apparent distress and well nourished General Appearance: cooperative and well developed HEENT normocephalic and head/scalp atraumatic Eyes PERRL and EOMs intact bilaterally Neck no lymphadenopathy General: trachea midline Lymph Lymphatic: no lymphadenopathy noted Resp normal respiratory effort, normal air movement and clear to auscultation bilaterally Cardio regular rate, regular rhythm, S1 normal heart sound and S2 normal heart sound GI normal to inspection, nondistended, normoactive bowel sounds Extremity normal capillary refill Skin General Skin Exam: no breakdown Neuro Coordination / Balance: [id number] test normal and [id number] test normal Speech: speech normal Motor Exam: strength 5/5 throughout Psych cooperative Results Lab / Micro Data Result Diagrams: 01/04/22 18:44 01/04/22 18:44 Labs: Laboratory Results - last 24 hr 01/04/22 18:44: WBC 10.3, RBC 4.32 L, Hgb 13.6, Hct 39.3 L, MCV 91.0, MCH 31.5, MCHC 34.6, RDW Std Deviation 41.5, RDW Coeff of Lynne 12.6, Plt Count 227, MPV 9.4, Immature Gran % (Auto) 0.600, Neut % (Auto) 83.1 H, Lymph % (Auto) 10.0 L, [place] % (Auto) 6.0, Eos % (Auto) 0.2, Baso % (Auto) 0.1, Absolute Neuts (auto) 8.5 H, Absolute Lymphs (auto) 1.03, Nucleated RBC % 0 01/04/22 18:44: PT 13.4, INR 1.1, APTT 39.0 H 01/04/22 18:44: Sodium 137, Potassium 3.4 L, Chloride 102, Carbon Dioxide 26.0, Anion Gap 9, BUN 19 H, Creatinine 0.64 L, Estim Creat Clear Calc 64.67, Est GFR (MDRD) Af Amer 154, Est GFR (MDRD) Non-Af 127, BUN/Creatinine Ratio 29.6 H, Glucose 109 H, Calcium 9.3, Troponin I High Sens 8 Radiology Impression Chest X-Ray 01/04/22 19:05 IMPRESSION: ASHD. No acute cardiopulmonary pathology Electronically Signed: Olman Corado MD at 19:32 EDT , Brain CT 01/04/22 19:47 IMPRESSION: Mild atrophy and periventricular white matter ischemic change. No acute bleed.. If concern for acute infarct MRI recommended Electronically Signed: Olman Corado MD at 19:56 EDT , ADDENDUM: 01/04/222009 IMPRESSION: Mild atrophy and periventricular white matter ischemic change. No acute bleed.. If concern for acute infarct MRI recommended N.B. : The above Results were Read Back by Olman Corado MD to Topher Lu MD, MD, and understanding confirmed on 01/04/2022 20:03:27 (ET). Electronically Signed: Olman Corado MD at 19:56 EDT , Head/Neck CTA 01/04/22 19:47 IMPRESSION: Mild atherosclerotic change without evidence for hemodynamically significant stenosis Electronically Signed: Olman Corado MD at 20:16 EDT , ADDENDUM: 01/04/222028 IMPRESSION: Mild atherosclerotic change without evidence for hemodynamically significant stenosis N.B. : The above Results were Read Back by Olman Corado MD to Dr. Marito MD, and understanding confirmed on 01/04/2022 20:22:45 (ET). Electronically Signed: Olman Corado MD at 20:16 EDT , Assessment & Plan Assessment/Plan (1) Hypertension: QUALIFIERS: Hypertension type: essential hypertension Qualified Code(s): I10 - Essential (primary) hypertension; I10 - Essential (primary) hypertension; I10 - Essential (primary) hypertension (2) DIFFICULTY AMBULATING: (3) Cerebellar stroke syndrome: PLAN: Plan 1. Difficulty ambulating with possible cerebellar stroke syndrome?admit patient to PCU, initiate stroke protocol with neurochecks every 4 hours, aspirin and will order MRI MRA head and neck for a.m. 2. Hypertension?well-controlled routinely per stroke protocol to allow permissive hypertension if necessary. 3. DVT prophylaxis?low molecular weight heparin
--- NOTE | 2022-01-04 21:11 | MRI_ITS ---
HISTORY: Cerebellar stroke syndrome. TECHNIQUE: Multiplanar and multisequence MR images of the brain were obtained without contrast. 291 images. COMPARISON: CT prior day, MR 12/17/2016. FINDINGS: BRAIN PARENCHYMA: Mildly increased T2 FLAIR signal in the periventricular white matter again noted. No abnormal focus of restricted diffusion. No acute intracranial hemorrhage identified. CSF SPACES: Chronic moderate volume loss. No significant midline shift or other mass effect.No extra-axial fluid collection. VASCULAR SYSTEM: Major intracranial flow voids are maintained. PARANASAL SINUSES AND MASTOID AIR CELLS: No significant air fluid levels. ORBITS: Symmetric contents. MRI/Brain without Contrast IMPRESSION: No evidence for acute infarct. Chronic involutional and white matter changes. Electronically Signed: Charito Alford MD at 10:12 EDT ,
[2022-01-04] MEDS: Pantoprazole Sodium 40 MG Tablet PO (23:25)
[2022-01-04] MEDS: DiphenhydrAMINE 25 MG Capsule PO (23:25)
[2022-01-05 00:27] VITALS: BMI 22.7
[2022-01-05 01:30] VITALS: BP 147/76; PULSE 73; RESP 16; TEMP 36.8; O2SAT 97
[2022-01-05 03:21] VITALS: PULSE 60
[2022-01-05 05:00] VITALS: BP 139/66; PULSE 68; RESP 16; TEMP 36.7; O2SAT 97
[2022-01-05 06:25] LABS: Absolute Lymphocyte Count 1.51 X10^3/uL (0.83-4.51); Absolute Neutrophil Count 5.1 X10^3/uL (2.0-7.7); Basophil# 0.01 X10^3/uL; Basophil% 0.1 % (0-1); Eosinophil# 0.05 X10^3/uL; Eosinophils% 0.7 % (0-5); Hematocrit 37.5 % (40-54); Hemoglobin 12.8 g/dL (13.0-16.5); Lymphocyte # 1.51 X10^3/ul (0.83-4.51); Lymphocyte % 20.7 % (19-41); Mean Corp Hgb Conc 34.1 g/dL (32-36); Mean Corpuscular Hgb 31.4 pg (27.0-32.0); Mean Corpuscular Volume 91.9 fL (80-94); Mean Platelet Vol. 9.3 fl (6.2-12.0); Monocyte# 0.62 X10^3/uL; Monocyte% 8.5 % (0-10); NRBC Flagged by Analyzer 0 % (0-5); Neutrophil # 5.06 X10^3/uL (2.7-7.7); Neutrophil % 69.6 % (47-70); Platelet Count 211 K/mm3 (150-450); RBC Distribution Width CV 12.7 % (11.6-14.6); RBC Distribution Width SD 42.5 fl (35.1-43.9); Red Blood Count 4.08 M/mm3 (4.6-6.2); White Blood Count 7.3 K/mm3 (4.4-11.0)
[2022-01-05 06:58] LABS: Anion Gap 6 (5-15); BUN 14 mg/dL (7-18); BUN/Creat Ratio 23.4 RATIO (10-20); Calcium,Total 8.8 mg/dL (8.5-10.1); Chloride 108 mmol/L (98-107); Cholesterol 128 mg/dL (200); EST Glomerular Filtration Rate 138 mL/min (>60); Est Glom Filt Rate - Afr Amer 167 mL/min (>60); Glucose 102 mg/dL (74-106); High Density Lipoprotein 43 mg/dL; Potassium 3.4 mmol/L (3.5-5.1); Sodium Level 141 mmol/L (136-145); Triglycerides 72 mg/dL; Very Low Density Lipoprotein 14 mg/dL (5-40)
[2022-01-05 07:00] VITALS: PULSE 57
[2022-01-05 07:20] VITALS: O2SAT 98
--- NOTE | 2022-01-05 08:09 | PCM.PN.HOSP ---
Subjective Subjective Feels well. No further dizziness. Objective Data Objective Data Vital Signs: Vital Signs Temp Pulse Resp BP Pulse Ox O2 Del Method 36.7 C 57 L 16 139/66 H 98 Room Air 01/05/22 05:00 01/05/22 07:00 01/05/22 05:00 01/05/22 05:00 01/05/22 07:20 01/05/22 07:20 Oxygen Delivery Method Room Air Weight: 78.1 kg Body Mass Index (BMI) 22.7 Intake & Output: Intake and Output for Last 24 Hours 01/03/22 01/04/22 01/05/22 23:59 23:59 23:59 Output Total 1000 / 1000 Balance -1000 / -1000 Lab / Micro Data Result Diagrams: 01/05/22 06:10 01/05/22 06:10 Labs: Laboratory Results - last 24 hr 01/04/22 18:44: WBC 10.3, RBC 4.32 L, Hgb 13.6, Hct 39.3 L, MCV 91.0, MCH 31.5, MCHC 34.6, RDW Std Deviation 41.5, RDW Coeff of Lynne 12.6, Plt Count 227, MPV 9.4, Immature Gran % (Auto) 0.600, Neut % (Auto) 83.1 H, Lymph % (Auto) 10.0 L, [place] % (Auto) 6.0, Eos % (Auto) 0.2, Baso % (Auto) 0.1, Absolute Neuts (auto) 8.5 H, Absolute Lymphs (auto) 1.03, Nucleated RBC % 0 01/04/22 18:44: PT 13.4, INR 1.1, APTT 39.0 H 01/04/22 18:44: Sodium 137, Potassium 3.4 L, Chloride 102, Carbon Dioxide 26.0, Anion Gap 9, BUN 19 H, Creatinine 0.64 L, Estim Creat Clear Calc 64.67, Est GFR (MDRD) Af Amer 154, Est GFR (MDRD) Non-Af 127, BUN/Creatinine Ratio 29.6 H, Glucose 109 H, Calcium 9.3, Troponin I High Sens 8 01/05/22 06:10: WBC 7.3, RBC 4.08 L, Hgb 12.8 L, Hct 37.5 L, MCV 91.9, MCH 31.4, MCHC 34.1, RDW Std Deviation 42.5, RDW Coeff of Lynne 12.7, Plt Count 211, MPV 9.3, Immature Gran % (Auto) 0.400, Neut % (Auto) 69.6, Lymph % (Auto) 20.7, [place] % (Auto) 8.5, Eos % (Auto) 0.7, Baso % (Auto) 0.1, Absolute Neuts (auto) 5.1, Absolute Lymphs (auto) 1.51, Nucleated RBC % 0 01/05/22 06:10: Sodium 141, Potassium 3.4 L, Chloride 108 H, Carbon Dioxide 27.0, Anion Gap 6, BUN 14, Creatinine 0.60 L, Estim Creat Clear Calc 64.00, Est GFR (MDRD) Af Amer 167, Est GFR (MDRD) Non-Af 138, BUN/Creatinine Ratio 23.4 H, Glucose 102, Calcium 8.8, Triglycerides 72, Cholesterol 128, LDL Cholesterol 71, VLDL Cholesterol 14, HDL Cholesterol 43 Radiography Diagnostic Testing: Radiology Impression Chest X-Ray 01/04/22 19:05 IMPRESSION: ASHD. No acute cardiopulmonary pathology Electronically Signed: Olman Corado MD at 19:32 EDT , Brain CT 01/04/22 19:47 IMPRESSION: Mild atrophy and periventricular white matter ischemic change. No acute bleed.. If concern for acute infarct MRI recommended Electronically Signed: Olman Corado MD at 19:56 EDT , ADDENDUM: 01/04/222009 IMPRESSION: Mild atrophy and periventricular white matter ischemic change. No acute bleed.. If concern for acute infarct MRI recommended N.B. : The above Results were Read Back by Olman Corado MD to Topher Lu MD, MD, and understanding confirmed on 01/04/2022 20:03:27 (ET). Electronically Signed: Olman Corado MD at 19:56 EDT , Head/Neck CTA 01/04/22 19:47 IMPRESSION: Mild atherosclerotic change without evidence for hemodynamically significant stenosis Electronically Signed: Olman Corado MD at 20:16 EDT , ADDENDUM: 01/04/222028 IMPRESSION: Mild atherosclerotic change without evidence for hemodynamically significant stenosis N.B. : The above Results were Read Back by Olman Corado MD to Dr. Marito MD, and understanding confirmed on 01/04/2022 20:22:45 (ET). Electronically Signed: Olman Corado MD at 20:16 EDT , Physical Exam Const alert and no apparent distress Neck Neck Narrative: Right carotid bruit Resp normal respiratory effort, no retractions and no use of accessory muscles Cardio regular rate, regular rhythm, S1 normal heart sound and S2 normal heart sound GI normal to inspection, nondistended, normoactive bowel sounds Assessment & Plan Assessment/Plan (1) Vertigo: PLAN: BPPV MRI negative for stroke. Symptoms have since resolved. (2) DIFFICULTY AMBULATING: PLAN: PT OT evaluate and treat. Secondary to vertigo. (3) Hypokalemia: PLAN: replace magnesium 2.3 (4) Carotid stenosis: PLAN: Mild stenosis. Carotid stenosis in February showed less than 50% stenosis on the right and left. PLAN: Plan Hypertension?well-controlled routinely per stroke protocol to allow permissive hypertension if necessary. DVT prophylaxis?low molecular weight heparin
[2022-01-05 09:00] VITALS: BP 149/64; PULSE 89; RESP 16; TEMP 36.7; O2SAT 97
[2022-01-05 09:42] LABS: Magnesium 2.3 mg/dL (1.6-2.6)
[2022-01-05] MEDS: Enoxaparin 40 MG/0.4 ML Syringe SC (10:20)
[2022-01-05] MEDS: Calcium Carb/Vitamin D 1 TABLET Tablet PO (10:20)
--- NOTE | 2022-01-05 10:20 | CASEMGMT ---
RN CHAZ Face to Face with patient for initial transition planning/care coordination assessment. RN CM introduced self and role at [facility]. Patient lying in bed, alert and oriented, daughter and son-in-law at bedside. Patient willing to participate in assessment and is able to answer all questions appropriately. Care providers, pharmacy, and demographics verified. Patient wishes to discharge home, denies need for home health at this time. Patient states he has no further needs or concerns at this time. CM to follow for discharge planning needs that may arise. PCP: Brijesh Specialists: none Preferred Pharmacy: [facility] Insurance: [employer] Prescription Benefit: yes Living Will/HPOA: yes, daughter Divya Hammer, HPOA LNOK: daughter, son in law Living Arrangements: Patient lives alone in a single story home with 2 steps and railing to enter the home. Patient states he is independent at home. Transportation: self, daughter DME/HHC: Patient has shower chair, raised toilet, cane, walker, and grab bars at home. Patient denies previous HHC or SNF. Disposition Plan: Patient to discharge home with family support and follow-up plans in place. Marcella MARIE, RN, CM
[2022-01-05] MEDS: Potassium Chloride Oral Tablet 20 MEQ 40 MEQ PO (10:21)
[2022-01-05] MEDS: Multivitamins,Therapeutic Tablet 1 TABLET PO (10:21)
[2022-01-05] MEDS: hydroCHLOROthiazide 6.25mg TAB 6.25 MG PO (10:21)
[2022-01-05] MEDS: Losartan Potassium 25 MG Tablet PO (10:21)
[2022-01-05] MEDS: Aspirin 81 MG TAB.CHEW PO (10:21)
[2022-01-05 12:00] VITALS: BMI 22.7
--- NOTE | 2022-01-05 12:02 | DCINST_ITS ---
Discharge Instructions Diet Discharge Diet: Low fat / Low cholesterol Follow Up Care Test Results: Test results from this visit will be discussed in further detail at your follow- up appointment, if applicable. Discharge Plan Admission Admit Date/Time: 01/04/22 21:05 Primary Reason for Your Visit: vertigo Attending Provider: Dayron Kelly Primary Care Provider: Dalia Coley Consulting Providers: Akbar Horta Discharge Orders/Prescriptions Prescriptions: New meclizine 25 mg tablet 25 mg PO TID PRN (Reason: dizziness) Qty: 20 0RF Continued diphenhydramine HCl [Allergy Relief(diphenhydramin)] 25 mg capsule 25 mg PO QHS multivitamin Tablet 1 tab PO DAILY valsartan-hydrochlorothiazide 160-12.5 mg tablet 0.5 tab PO BID Label Comments: TAKE 1/2 (ONE-HALF) OF A TABLET TWICE DAILY calcium carbonate-vitamin D3 600 mg-5 mcg (200 unit) Tablet 1 tab PO DAILY omeprazole 20 mg capsule,delayed release(DR/EC) 40 mg PO QHS Label Comments: TAKE 1 CAPSULE BY MOUTH TWICE DAILY coenzyme Q10 [Co Q-10] 100 mg Capsule 100 mg PO MOWEFR glucosamine-chondroitin 250-200 mg Tablet 1 tab PO BID Rx Instructions: give after food/meal rosuvastatin [Crestor] 5 mg Tablet 5 mg PO MOWEFR Referrals / Follow Up: Dalia Coley DO [Primary Care Provider] - Disposition Disposition (needs filled in before D/C Order can be placed): Home, Self Care
--- NOTE | 2022-01-05 12:05 | DS.PCM_ITS ---
Providers Date of Admission: 01/04/22 Primary Care Physician: Dr. Dalia Coley DO Reason For Visit: vertigo Diagnosis Discharge Diagnosis (1) Vertigo: Status: Acute Code(s): R42 - Dizziness and giddiness Plan: secondary to BPPV MRI negative for stroke. Symptoms have since resolved. (2) DIFFICULTY AMBULATING: Status: Acute Plan: PT OT evaluate and treat. Secondary to vertigo. (3) Hypokalemia: Status: Acute Code(s): E87.6 - Hypokalemia Plan: replace magnesium 2.3 (4) Carotid stenosis: Status: Acute Code(s): I65.29 - Occlusion and stenosis of unspecified carotid artery Plan: Mild stenosis. Carotid stenosis in February showed less than 50% stenosis on the right and left. Plan Hypertension?well-controlled routinely per stroke protocol to allow permissive hypertension if necessary. DVT prophylaxis?low molecular weight heparin Medications at Discharge Home Medications diphenhydramine HCl 25 mg capsule (Allergy Relief (diphenhydramine)) 25 mg PO QHS 04/05/17 calcium carbonate 600 mg-vitamin D3 5 mcg (200 unit) tablet 1 tab PO DAILY SUPPLEMENT 01/04/22 coenzyme Q10 100 mg capsule (Co Q-10) 100 mg PO MOWEFR 01/04/22 glucosamine-chondroitin 250 mg-200 mg tablet 1 tab PO BID SUPPLEMENT 01/04/22 multivitamin 1 tab PO DAILY 01/04/22 omeprazole 20 mg capsule,delayed release 40 mg PO QHS 01/04/22 rosuvastatin 5 mg tablet (Crestor) 5 mg PO MOWEFR 01/04/22 valsartan 160 mg-hydrochlorothiazide 12.5 mg tablet 0.5 tab PO BID 01/04/22 meclizine 25 mg tablet 25 mg PO TID PRN dizziness #20 tabs 01/05/22 Hospital Course Operations None Procedures None Summary of Care Provided Minutes Spent on Discharge: 28 Weight / BMI Weight Weight: 78.1 kg Body Mass Index (BMI) 22.7 ABG / Lab / Microbiology Data Result Diagrams: 01/05/22 06:10 01/05/22 06:10 Laboratory: Laboratory Results - last 24 hr 01/04/22 18:44: WBC 10.3, RBC 4.32 L, Hgb 13.6, Hct 39.3 L, MCV 91.0, MCH 31.5, MCHC 34.6, RDW Std Deviation 41.5, RDW Coeff of Lynne 12.6, Plt Count 227, MPV 9.4, Immature Gran % (Auto) 0.600, Neut % (Auto) 83.1 H, Lymph % (Auto) 10.0 L, [place] % (Auto) 6.0, Eos % (Auto) 0.2, Baso % (Auto) 0.1, Absolute Neuts (auto) 8.5 H, Absolute Lymphs (auto) 1.03, Nucleated RBC % 0 01/04/22 18:44: PT 13.4, INR 1.1, APTT 39.0 H 01/04/22 18:44: Sodium 137, Potassium 3.4 L, Chloride 102, Carbon Dioxide 26.0, Anion Gap 9, BUN 19 H, Creatinine 0.64 L, Estim Creat Clear Calc 64.67, Est GFR (MDRD) Af Amer 154, Est GFR (MDRD) Non-Af 127, BUN/Creatinine Ratio 29.6 H, Glucose 109 H, Calcium 9.3, Troponin I High Sens 8 01/05/22 06:10: WBC 7.3, RBC 4.08 L, Hgb 12.8 L, Hct 37.5 L, MCV 91.9, MCH 31.4, MCHC 34.1, RDW Std Deviation 42.5, RDW Coeff of Lynne 12.7, Plt Count 211, MPV 9.3, Immature Gran % (Auto) 0.400, Neut % (Auto) 69.6, Lymph % (Auto) 20.7, [place] % (Auto) 8.5, Eos % (Auto) 0.7, Baso % (Auto) 0.1, Absolute Neuts (auto) 5.1, Absolute Lymphs (auto) 1.51, Nucleated RBC % 0 01/05/22 06:10: Sodium 141, Potassium 3.4 L, Chloride 108 H, Carbon Dioxide 27.0, Anion Gap 6, BUN 14, Creatinine 0.60 L, Estim Creat Clear Calc 64.00, Est GFR (MDRD) Af Amer 167, Est GFR (MDRD) Non-Af 138, BUN/Creatinine Ratio 23.4 H, Glucose 102, Calcium 8.8, Triglycerides 72, Cholesterol 128, LDL Cholesterol 71, VLDL Cholesterol 14, HDL Cholesterol 43 01/05/22 06:10: Magnesium 2.3 Radiography Diagnostic Testing: Radiology Impression Chest X-Ray 01/04/22 19:05 IMPRESSION: ASHD. No acute cardiopulmonary pathology Electronically Signed: Olman Corado MD at 19:32 EDT , Brain CT 01/04/22 19:47 IMPRESSION: Mild atrophy and periventricular white matter ischemic change. No acute bleed.. If concern for acute infarct MRI recommended Electronically Signed: Olman Corado MD at 19:56 EDT , ADDENDUM: 01/04/222009 IMPRESSION: Mild atrophy and periventricular white matter ischemic change. No acute bleed.. If concern for acute infarct MRI recommended N.B. : The above Results were Read Back by Olman Corado MD to Topher Lu MD, MD, and understanding confirmed on 01/04/2022 20:03:27 (ET). Electronically Signed: Olman Corado MD at 19:56 EDT , Head/Neck CTA 01/04/22 19:47 IMPRESSION: Mild atherosclerotic change without evidence for hemodynamically significant stenosis Electronically Signed: Olman Corado MD at 20:16 EDT , ADDENDUM: 01/04/222028 IMPRESSION: Mild atherosclerotic change without evidence for hemodynamically significant stenosis N.B. : The above Results were Read Back by Olman Corado MD to Dr. Marito MD, and understanding confirmed on 01/04/2022 20:22:45 (ET). Electronically Signed: Olman Corado MD at 20:16 EDT , Brain MRI 01/04/22 21:11 IMPRESSION: No evidence for acute infarct. Chronic involutional and white matter changes. Electronically Signed: Charito Alford MD at 10:12 EDT , D/C Instructions Discharge Diet: Low fat / Low cholesterol Meaningful Use Info Meaningful Use Diagnoses (Choose all that apply): None applicable Discharge Plan Admission Admit Date/Time: 01/04/22 21:05 Primary Reason for Your Visit: vertigo Attending Provider: Dayron Kelly Primary Care Provider: Dalia Coley Consulting Providers: Akbar Horta Discharge Orders/Prescriptions Prescriptions: New meclizine 25 mg tablet 25 mg PO TID PRN (Reason: dizziness) Qty: 20 0RF Continued diphenhydramine HCl [Allergy Relief(diphenhydramin)] 25 mg capsule 25 mg PO QHS multivitamin Tablet 1 tab PO DAILY valsartan-hydrochlorothiazide 160-12.5 mg tablet 0.5 tab PO BID Label Comments: TAKE 1/2 (ONE-HALF) OF A TABLET TWICE DAILY calcium carbonate-vitamin D3 600 mg-5 mcg (200 unit) Tablet 1 tab PO DAILY omeprazole 20 mg capsule,delayed release(DR/EC) 40 mg PO QHS Label Comments: TAKE 1 CAPSULE BY MOUTH TWICE DAILY coenzyme Q10 [Co Q-10] 100 mg Capsule 100 mg PO MOWEFR glucosamine-chondroitin 250-200 mg Tablet 1 tab PO BID Rx Instructions: give after food/meal rosuvastatin [Crestor] 5 mg Tablet 5 mg PO MOWEFR Referrals / Follow Up: Dalia Coley DO [Primary Care Provider] - Disposition Disposition (needs filled in before D/C Order can be placed): Home, Self Care Charges/Coding Visit Charges Inpatient E&M: 96703 Disch Hosp
--- NOTE | 2022-01-05 12:36 | CASEMGMT ---
Per therapy notes, no therapy recommended at discharge and pt states no concerns with going home. SStrebecca DAMIAN CM
== END 2022-01-05 12:56 | disposition home or self-care (01) | DRG 149 ==
LOC: ED 20:44 → PCU 21:09
PROVIDERS: Admitting Provider Family Medicine; Emergency Provider Emergency Medicine; PCP Internal Medicine
DX: H81.10 Benign paroxysmal vertigo, unspecified ear (principal); E87.6 Hypokalemia; I10 Essential (primary) hypertension; I65.23 Occlusion and stenosis of bilateral carotid arteries; K21.9 Gastro-esophageal reflux disease without esophagitis; R29.6 Repeated falls; R29.700 NIHSS score 0; Z79.899 Other long term (current) drug therapy; Z87.891 Personal history of nicotine dependence; Z82.49 Family history of ischemic heart disease and other diseases of the circulatory system
CPT/HCPCS: 36415; 70450; 70496; 70498; 70551; 71045; 80048; 80061; 83735; 84484; 85025; 85610; 85730; 93005; 94762; 97161; 97166; 99285; J7030; Q9967; A4216

== ENCOUNTER → 2022-01-14 | Outpatient (CLI) | payer MEDICARE, SELFPAY ==
--- NOTE | 2022-01-14 14:26 | BD_ITS ---
STUDY: DUAL ENERGY X-RAY ABSORPTIOMETRY / DXA REASON FOR EXAM: Male, 81 years old. S32.000A TECHNIQUE: Bone Mineral Density (BMD) measurements of lumbar spine and bilateral hips were obtained. COMPARISON: None. FINDINGS: Lumbar Spine (L1-L4): g/cm2 (1.036) / T-score (-0.5) / Z-score (0.7) Findings are suggestive of normal bone density with a low fracture risk. Left Femur Total: g/cm2 (0.869) / T-score (-1.1) / Z-score (0.0) Left Femoral Neck: g/cm2 (0.623) / T-score (-2.3) / Z-score (-0.7) Right Femur Total: g/cm2 (0.880) / T-score (-1.0) / Z-score (0.1) Right Femoral Neck: g/cm2 (0.647) / T-score (-2.1) / Z-score (-0.5) BD/Dexa Bone Density Study IMPRESSION: The patient is considered osteopenic as outlined below according to World Bk Organization (WHO) criteria with a high fracture risk. Reference Information: The T-score is the number of standard deviations above or below the standard which is normal for young adults at their peak bone mineral density. The World Health Organization (WHO) interprets the T-scores as follows: Above -1 Normal bone density Between -1 and -2.5 Osteopenia Equal to / or below -2.5 Osteoporosis As a practical clinical guideline, osteopenia may be graded as follows: Mild -1 through -1.5 Moderate -1.6 through -2.0 Severe -2.1 through -2.4 The Z-score is the number of standard deviations above or below age-matched controls. A Z-score of less than -1.5 would be considered abnormal. References: 1. NIH Osteoporosis and Related Bone Diseases www osteo.org 2. International Society for Clinical Densitometry www iscd.org 3. National Osteoporosis Foundation www nof.org Electronically Signed: Simone Callejas MD at 14:52 EDT ,
== END | disposition home or self-care (01) ==
LOC: OPBD 14:20
PROVIDERS: PCP Internal Medicine; Visit Provider Internal Medicine
DX: S32.000A Wedge compression fracture of unspecified lumbar vertebra, initial encounter for closed fracture (principal); X58.XXXA Exposure to other specified factors, initial encounter
CPT/HCPCS: 77080

== ENCOUNTER → 2022-01-18 | Outpatient (CLI) | payer MEDICARE, SELFPAY ==
[2022-01-18 11:01] LABS: Bacteria 0 SEEN /hpf (None Seen); Mucous, Urine 0 SEEN /hpf (<or=2+); Red Blood Cells-Urine 0 SEEN /hpf (0-5)
[2022-01-18 12:31] LABS: Absolute Neutrophil Count 7.9 X10^3/uL (2.0-7.7); Basophil# 0.03 X10^3/uL; Basophil% 0.3 % (0-1); Eosinophil# 0.04 X10^3/uL; Eosinophils% 0.4 % (0-5); Hematocrit 43.1 % (40-54); Hemoglobin 15.4 g/dL (13.0-16.5); Lymphocyte % 9.5 % (19-41); Mean Corp Hgb Conc 35.7 g/dL (32-36); Mean Corpuscular Hgb 32.8 pg (27.0-32.0); Mean Corpuscular Volume 91.9 fL (80-94); Mean Platelet Vol. 9.4 fl (6.2-12.0); Monocyte# 0.58 X10^3/uL; Monocyte% 6.1 % (0-10); NRBC Flagged by Analyzer 0 % (0-5); Neutrophil # 7.87 X10^3/uL (2.7-7.7); Platelet Count 235 K/mm3 (150-450); RBC Distribution Width CV 12.6 % (11.6-14.6); Red Blood Count 4.69 M/mm3 (4.6-6.2); White Blood Count 9.5 K/mm3 (4.4-11.0)
[2022-01-18 12:39] LABS: International Normalized Ratio 1.1; Partial Thromboplast Time 35.5 Seconds (24.1-36.2); Prothrombin Time (Protime)PT. 13.5 SECONDS (11.7-14.9)
[2022-01-18 12:58] LABS: D-Dimer Quantitative (DVT/PE) 0.36 FEU/ug/m (0.27-0.49)
[2022-01-18 13:05] LABS: ALB/GLOB Ratio 1.1 RATIO (0.9-2.4); AST(SGOT) 13 U/L (15-37); Alanine Aminotransfer ALT/SGPT 20 U/L (16-61); Alkaline Phosphatase 70 U/L (45-117); Anion Gap 8 (5-15); BUN 16 mg/dL (7-18); BUN/Creat Ratio 23.8 RATIO (10-20); Calcium,Total 9.3 mg/dL (8.5-10.1); Chloride 101 mmol/L (98-107); Creatinine, Serum 0.67 mg/dL (0.70-1.30); EST Glomerular Filtration Rate 120 mL/min (>60); Est Glom Filt Rate - Afr Amer 146 mL/min (>60); Globulin 3.5 g/dL (2.2-4.2); Glucose 102 mg/dL (74-106); Potassium 3.4 mmol/L (3.5-5.1); Protein, Total 7.5 g/dL (6.4-8.2); Sodium Level 140 mmol/L (136-145)
[2022-01-18 15:14] LABS: Color, Urine Yellow (Yellow); Glucose, Dipstick Normal (Normal); Ketone-Dipstick 5 mg/dl (Negative); Leukocyte Esterase-Dipstick 25 /ul (Negative); Nitrite-Dipstick Negative (Negative); Occult Blood-Urine 10 /ul (Negative); Protein-Dipstick 15 mg/dl (Negative); Urine Bilirubin Dipstick Negative (Negative); Urine Clarity Clear (Clear); Urine Urobilinogen Normal (Normal)
[2022-01-18 15:20] LABS: Squamous Epithelial Cells - UA 0-5 SEEN /hpf (0-5); White Blood Cells 0-5 SEEN /hpf (0-5)
[2022-01-19 15:08] LABS: Albumin 4.2 g/dL (2.9-4.4); Alpha-1-Globulins 0.3 g/dL (0.0-0.4); Alpha-2-Globulins 0.8 g/dL (0.4-1.0); Gamma Globulin 0.9 g/dL (0.4-1.8); Immunoglobulin A 68 mg/dL (61-437); Immunoglobulin G 867 mg/dL (603-1613); Immunoglobulin M 75 mg/dL (15-143)
[2022-01-22 15:40] LABS: Anti-Nuclear Antibody Test Negative (.)
== END | disposition home or self-care (01) ==
PROVIDERS: PCP Internal Medicine; Referring Provider Dermatology Pediatric Dermatology; Visit Provider Dermatology Pediatric Dermatology
DX: D69.2 Other nonthrombocytopenic purpura (principal)
CPT/HCPCS: 36415; 80053; 81001; 82784; 84165; 85025; 85379; 85610; 85730; 86038; 86334

== ENCOUNTER → 2022-06-04 | Outpatient (CLI) | payer MEDICARE, SELFPAY ==
--- NOTE | 2022-06-04 13:04 | ECHOD_ITS ---
Reason For Study: Ventricular premature depolarization Procedure This was a 2D Doppler, Color Flow transthoracic echocardiogram. Exam performed in department. Left Ventricle Normal size and thickness. The left ventricular ejection fraction is 65 %. Normal diastology for age. Right Ventricle Normal right ventricle. Atria Normal left atrium. Normal right atrium. Bubble contrast study suggestive of tiny PFO. Mitral Valve Mild (1+) mitral valve insufficiency. Tricuspid Valve Mild (1+) tricuspid valve insufficiency. Normal pulmonary artery pressure. Aortic Valve Trisinus/trileaflet aortic valve. Mild (1+) aortic valve insufficiency. Pulmonic Valve The pulmonic valve is not well visualized. Great Vessels Mildly calcified aortic root. Pericardium/Pleural No pericardial effusion. Medication Performed a rapid injection of agitated mix of 9 cc saline and 1cc air to assess for atrial septal defect. MMode/2D Measurements & Calculations LVIDd: 5.1 cm IVSd: 1.1 cm Ao root diam: 3.4 cm LVIDs: 3.2 cm LVPWd: 0.77 cm RVDd: 4.3 cm FS: 37.7 % LAV(MOD-bp): 34.9 ml LVAd ap4: 29.5 cm2 SV(MOD-sp4): 46.7 ml LAV(MOD-bp) Indexed: 17.0 ml/m2 LVLd ap4: 8.6 cm LAV(MOD-sp2): 41.0 ml EDV(MOD-sp4): 83.1 ml LAV(MOD-sp4): 28.9 ml EDV(sp4-el): 85.7 ml LVAs ap4: 17.0 cm2 LVLs ap4: 7.1 cm ESV(MOD-sp4): 36.4 ml ESV(sp4-el): 34.6 ml EF(MOD-sp4): 56.2 % EF(sp4-el): 59.7 % SV(sp4-el): 51.2 ml LA A4 area: 13.3 cm2 LA dimension(2D): 3.9 cm RA A4 area: 15.3 cm2 Time Measurements MV dec time: 0.34 sec Doppler Measurements & Calculations MV E max lalit: 56.3 cm/sec Lat Peak E' Lalit: 10.4 cm/sec Med Peak E' Lalit: 5.2 cm/sec MV A max lalit: 96.9 cm/sec E/E' lat: 5.4 E/E' med: 10.9 MV E/A: 0.58 MV dec slope: 163.4 cm/sec2 Ao V2 max: 147.1 cm/sec AI max lalit: 404.4 cm/sec Ao max P.7 mmHg AI max P.4 mmHg Ao V2 mean: 108.1 cm/sec AI dec slope: 165.0 cm/sec2 Ao mean P.2 mmHg AI P1/2t: 718.0 msec Ao V2 VTI: 29.2 cm LV V1 max: 112.1 cm/sec PA V2 max: 144.0 cm/sec PI end-d lalit: 75.6 cm/sec LV V1 max P.0 mmHg TR max lalit: 254.8 cm/sec TR max P.0 mmHg ECHO/Echo Complete Interpretation Summary The left ventricular ejection fraction is 65 %. Bubble contrast study suggestive of tiny PFO Mild (1+) mitral valve insufficiency. Mild (1+) aortic valve insufficiency. Mild (1+) tricuspid valve insufficiency. Mildly calcified aortic root. Ordering Physician: Dalia Coley Referring Physician: Dalia Coley Performed By: Maggie Crowley, FRANCISCO, RVT
== END | disposition home or self-care (01) ==
LOC: CVS 13:03
PROVIDERS: PCP Internal Medicine; Referring Provider Internal Medicine; Visit Provider Internal Medicine
DX: I49.3 Ventricular premature depolarization (principal)
CPT/HCPCS: 93306; A4216

== ENCOUNTER → 2022-06-09 | Outpatient (CLI) | payer MEDICARE, SELFPAY | END | disposition home or self-care (01) | LOC: PSN 12:15 | PROVIDERS: PCP Internal Medicine; Visit Provider Internal Medicine | DX: I49.3 Ventricular premature depolarization (principal) | CPT/HCPCS: 93225; 93226 ==

== ENCOUNTER → 2022-12-15 | Outpatient (CLI) | payer MEDICARE, SELFPAY ==
--- NOTE | 2022-12-15 09:48 | CDU_ITS ---
Reason For Study: Carotid artery plaque, right Rt. Velocities/BP Lt. Velocities/BP Prox CCA 107.2/6.5 cm/sec. Prox CCA 74.9/9.7 cm/sec. Mid CCA 56.7/8.4 cm/sec. Mid CCA 61.7/8.8 cm/sec. Dist CCA 43.9/7.2 cm/sec. Dist CCA 54.1/9.7 cm/sec. Prox ICA 41.3/8.1 cm/sec. Prox ICA 52.2/7.8 cm/sec. Mid ICA 57/10.7 cm/sec. Mid ICA 57.9/14.5 cm/sec. Dist ICA 77/18. cm/sec. Dist ICA 67.4/15.4 cm/sec. Rt. ICA/CCA = 1.36. Lt. ICA/CCA = 1.09. Prox ECA 79.6/6 cm/sec. Prox ECA 82.5/6.9 cm/sec. Rt. Vert. 33/6.6 cm/sec. Lt. Vert. 52.2/8.8 cm/sec. Right Extracranial There is homogeneous, smooth atherosclerotic plaque noted in the right common carotid artery. There is heterogeneous, irregular atherosclerotic plaque noted in the right internal carotid artery. There is homogeneous, smooth atherosclerotic plaque noted in the right external carotid artery. Antegrade flow is noted in the right vertebral artery. Left Extracranial There is homogeneous, smooth atherosclerotic plaque noted in the left common carotid artery. There is heterogeneous, smooth atherosclerotic plaque noted in the left internal carotid artery. There is homogeneous, smooth atherosclerotic plaque noted in the left external carotid artery. Antegrade flow is noted in the left vertebral artery. Procedure Carotid Duplex [id number]. This is a Carotid Duplex examination using B-mode, color flow and specral Doppler. Exam performed in department. VL/Carotid Duplex Ultrasound Interpretation Summary Mild (<50%) stenosis right extracranial internal carotid. Mild (<50%) stenosis left extracranial internal carotid. Flow within the vertebral arteries is antegrade bilaterally. Ordering Physician: Dalia Coley Referring Physician: Dalia Coley Performed By: Marcella Shetty RVT
== END | disposition home or self-care (01) ==
LOC: CVS 09:48
PROVIDERS: PCP Internal Medicine; Referring Provider Internal Medicine; Visit Provider Internal Medicine
DX: I65.21 Occlusion and stenosis of right carotid artery (principal)
CPT/HCPCS: 93880

== ENCOUNTER → 2023-05-11 | Outpatient (CLI) | payer MEDICARE, SELFPAY ==
--- NOTE | 2023-05-11 12:35 | RAD_ITS ---
STUDY: X-RAY CHEST REASON FOR EXAM: Male, 82 years old. Abnormal finding on long imaging. CT scan of chest performed at another institution. TECHNIQUE: Frontal and lateral views of the chest on 3 images. COMPARISON: Chest x-ray dated 01/04/[address] dated 07/02/2021 FINDINGS: Stable mild hyperinflation with scattered healed parenchymal granulomatous calcifications. There is no demonstrated pleural abnormality. Stable borderline cardiomegaly. Normal mediastinum and virgie. Prominent central pulmonary arteries, unchanged. Aortic tortuosity with calcification unchanged. Stable thoracic osteopenia with diffuse moderate thoracic spondylosis. Rotator cuff repair changes of the right glenohumeral joint, unaltered. No abnormality of the visualized soft tissue structures of the upper abdomen. RAD/Chest PA and Lateral IMPRESSION: Stable chest with no acute or active cardiopulmonary disease. Electronically Signed: Mooike Cox MD at 12:52 EST ,
== END | disposition home or self-care (01) ==
PROVIDERS: PCP Internal Medicine; Referring Provider Internal Medicine; Visit Provider Internal Medicine
DX: R91.8 Other nonspecific abnormal finding of lung field (principal)
CPT/HCPCS: 71046

== ENCOUNTER → 2023-06-21 | Outpatient (CLI) | payer MEDICARE, SELFPAY | END | disposition home or self-care (01) | PROVIDERS: PCP Internal Medicine; Visit Provider Nurse Practitioner Family | DX: J02.9 Acute pharyngitis, unspecified (principal) | CPT/HCPCS: 87651 ==

== ENCOUNTER 2023-09-13 15:54 | Emergency (ER) | payer MEDICARE, SELFPAY ==
[2023-09-13 15:55] VITALS: BP 201/69; PULSE 62; RESP 16; TEMP 36.2; O2SAT 99; BMI 22.6
--- NOTE | 2023-09-13 17:04 | EX.ED.GENINJ ---
HPI History of Present Illness Chief Complaint: Other, Pain/Inj Narrative Narrative: Patient presenting for evaluation of chronic right shoulder pain and new neck pain. Patient states that yesterday he was using a small sledgehammer to break concrete and his right shoulder started to hurt and spasm. He also states that the right side of his neck started to spasm. He went to [facility] and he was given a shot of Norflex and Toradol and states he felt better and was discharged home. This morning he woke up and states he was pain-free. He states the pain came back. He took a dose of the muscle relaxer and Naprosyn 250 mg which is prescribed to him. He states he still having a muscle spasm on the right side of his neck but it appears to have moved. He denies any direct trauma he states that the sledgehammer he was using was small and he does not remember any incident where he started to have pain while he was/family. He states his right shoulder is chronically intermittently painful. He states it was not really bothering him and so he started sledgehammer yesterday. He states he has a history of a biceps tear but it does not feel similar to what he has today. Patient denies any new trauma. Denies paresthesias. [facility] Medical History Carotid stenosis Dizziness GERD (gastroesophageal reflux disease) Hypertension Hypertension Home Medications ?Medication ?Instructions ?Recorded ?Last Taken ?Type diphenhydramine HCl 25 mg capsule 25 mg PO QHS 04/05/17 01/03/22 History (Allergy Relief (diphenhydramine)) calcium carbonate 600 mg-vitamin 1 tab PO DAILY SUPPLEMENT 01/04/22 01/03/22 History D3 5 mcg (200 unit) tablet coenzyme Q10 100 mg capsule (Co 100 mg PO MOWEFR 01/04/22 01/01/22 History Q-10) glucosamine-chondroitin 250 mg-200 1 tab PO BID SUPPLEMENT 01/04/22 01/03/22 History mg tablet multivitamin 1 tab PO DAILY 01/04/22 01/03/22 History omeprazole 20 mg capsule,delayed 40 mg PO QHS 01/04/22 01/03/22 History release rosuvastatin 5 mg tablet (Crestor) 5 mg PO MOWEFR 01/04/22 01/01/22 History valsartan 160 0.5 tab PO BID 01/04/22 01/03/22 History mg-hydrochlorothiazide 12.5 mg tablet meclizine 25 mg tablet 25 mg PO TID PRN dizziness #20 tabs 01/05/22 Unknown Rx cyclobenzaprine 10 mg tablet 10 mg PO TID PRN Muscle Spasm #20 09/13/23 Unknown Rx TABLETS Allergy/AdvReac Type Severity Reaction Status Date / Time No Known Allergies Allergy Verified 09/13/23 15:56 Family History Father Cancer Prostate CA Mother Hypertension Myocardial infarction at 73 of [place] and pulmonary HTN Surgical History H/O carpal tunnel repair Rotator cuff tear, left lumbarectomy Social History household members: none Smoking Status: Former smoker how long ago did patient quit smokin years ago alcohol intake: never substance use type: does not use what type of physical activity do you participate in: walking frequency: 5-6 times per week duration: 45-60 minutes/day seatbelt use: always ROS ROS ED Constitutional Constitutional ED: Denies chills, fever(s) or sweats Eyes Eyes: Denies blurry vision or change in vision ENT ENT ED: Denies ear pain or sore throat Cardiovascular Cardiovascular: Denies chest pain, palpitations or racing heartbeat Respiratory/Chest Respiratory/Chest: Denies cough, dyspnea or sputum Gastrointestinal Gastrointestinal: Denies abdominal pain, constipation, diarrhea, nausea or vomiting Genitourinary Genitourinary ED: Denies dysuria, hematuria or urinary frequency Musculoskeletal Musculoskeletal: Reports neck pain and other Details: Right shoulder ; Denies arthralgias or myalgias Integumentary Denies abscess, Abrasions or rash Neurologic Neurologic: Denies headache(s), paresthesias or weakness Psychiatric Psychiatric: Denies anxiety, depression, suicidal ideation or suicidal thoughts Endocrine Endocrinology: Denies polydipsia or polyuria EXAM Physical Exam Const Vital Signs: 09/13/23 15:55 09/13/23 16:46 Temperature 97.2 F L Temperature Source Temporal Pulse Rate 62 Respiratory Rate 16 Respiratory Effort Normal Non-Labored Respiratory Pattern Normal Blood Pressure 201/69 H Blood Pressure Mean 113 Pulse Ox 99 Oxygen Delivery Method Room Air Positive well nourished General Appearance ED: NAD HEENT atraumatic Eyes PERRL and EOMs intact bilaterally Chest Wall inspection of chest normal Back/Spine Back/Spine Narrative: No midline cervical spinal tenderness, deformity, step-off. Patient states pain is elicited when he rotates right at his last visit with his left. He does have full range of motion and appears to be symmetrically turning his head. Flexion and extension of the neck does not not elicit pain. Right shoulder nontender to palpation. Full range of motion in flexion, extension, abduction, adduction. No evidence of rotator cuff tear. Strength 5/5. No rashes, bruising Neuro oriented x3 Sensorium / Orientation: alert Motor Exam: strength 5/5 throughout Psych mental status grossly normal Skin no rashes or lesions noted MDM MDM MDM Narrative Medical decision making narrative: 82-year-old male presenting with neck pain. Patient states that this is due to using a small sledgehammer yesterday. Denies any direct trauma. He is already been prescribed Norflex 100 mg p.o. twice daily and Naprosyn to 50 mg. He took this at noon and states he does not have relief. He is not in any distress. His exam is remarkable only for right paraspinal musculature tenderness. He cannot recall if he has ever had an x-ray of his right shoulder. After discussion he wants us x-ray of his neck and shoulder which we will provide. I will give him a Mio here today. X-rays of the cervical spine and of the right shoulder showed no acute findings. There is obvious degenerative changes. Patient counseled on findings. I recommended the patient continue to use the Naprosyn and muscle relaxers. I gave him a prescription for cyclobenzaprine which she can try since his others was not helping him. He did not seem to want narcotics for home although he did except a Mio here. He does have orthopedic follow-up. Also counseled the patient that it would likely take a couple more days for the pain from his straining to go away. Impression: 1. Cervical strain 2. Shoulder strain Lab Data Attestation: I reviewed the patient's lab results. Radiography Diagnostic Testing: Clinical Impression(s) from Imaging Studies Cervical Spine X-Ray 05/28/24 17:30 IMPRESSION: Diffuse moderate spondylosis. MRI could better assess degree of spinal canal or neural foraminal stenosis as clinically indicated. No evidence of acute osseous injury. Electronically Signed: Dayron Marley MD at 18:06 EDT , Shoulder X-Ray 09/13/23 17:30 IMPRESSION: No acute osseous finding.. Moderate glenohumeral and acromioclavicular osteoarthritis. Electronically Signed: Dayron Marley MD at 18:03 EDT Reading Location ID and State: [facility] / [place] Tel , Service support , Discharge Plan Triage Chief Complaint: Other, Pain/Inj Other Complaint: Upper Extremity Injury ED Provider: Ryan Grigsby Dx/Rx/DC Orders Instructions: ED Neck Sprain or Strain, ED Shoulder Sprain Prescriptions: New cyclobenzaprine 10 mg tablet 10 mg PO TID PRN (Reason: Muscle Spasm) Qty: 20 0RF No Action diphenhydramine HCl [Allergy Relief(diphenhydramin)] 25 mg capsule 25 mg PO QHS multivitamin Tablet 1 tab PO DAILY valsartan-hydrochlorothiazide 160-12.5 mg tablet 0.5 tab PO BID Patient Comments: TAKE 1/2 (ONE-HALF) OF A TABLET TWICE DAILY calcium carbonate-vitamin D3 600 mg-5 mcg (200 unit) Tablet 1 tab PO DAILY omeprazole 20 mg capsule,delayed release(DR/EC) 40 mg PO QHS Patient Comments: TAKE 1 CAPSULE BY MOUTH TWICE DAILY coenzyme Q10 [Co Q-10] 100 mg Capsule 100 mg PO MOWEFR glucosamine-chondroitin 250-200 mg Tablet 1 tab PO BID Rx Instructions: give after food/meal rosuvastatin [Crestor] 5 mg Tablet 5 mg PO MOWEFR meclizine 25 mg tablet 25 mg PO TID PRN (Reason: dizziness) Qty: 20 0RF Primary Care Provider: Dalia Coley Referrals: Dalia Coley, DO [Primary Care Provider] - Activity Restrictions/Additional Instructions: I wrote you a prescription for cyclobenzaprine. This is a muscle relaxer. Do not use it in conjunction with other muscle relaxers. You can still use your Naprosyn and alternate Tylenol as well. Print Language: Australian Disposition Disposition: Home, Self Care
[2023-09-13] MEDS: HYDROcodone Bitartrate/Apap 5/325 Tablet PO (17:20)
--- NOTE | 2023-09-13 17:30 | RAD_ITS ---
INDICATION: neck pain EXAMINATION/TECHNIQUE: X-RAY - XR Spine Cervical 4 or 5 Views COMPARISON: None. FINDINGS: VERTEBRAE: No fracture or acute compression deformity. Mild chronic anterior vertebral height loss at C5, C6 and C7. No spondylolisthesis. Preservation of the normal cervical lordosis. Diffuse mild facet arthropathy with up to moderate left neural foraminal stenosis at C3-C4.. DISCS: Diffuse disc height loss with small anterior posterior endplate degenerative change.. NECK SOFT TISSUES: No prevertebral soft tissue widening. LUNG APICES: Clear. RAD/Cerv Spine 4 or 5 Views IMPRESSION: Diffuse moderate spondylosis. MRI could better assess degree of spinal canal or neural foraminal stenosis as clinically indicated. No evidence of acute osseous injury. Electronically Signed: Dayron Marley MD at 18:06 EDT ,
--- NOTE | 2023-09-13 17:30 | RAD_ITS ---
INDICATION: pain EXAMINATION/TECHNIQUE: X-RAY - RIGHT XR Shoulder Min 2 Views 4 VIEWS COMPARISON: February 13, 2021 FINDINGS: SOFT TISSUES: No soft tissue swelling or gas. No radiopaque foreign body. BONES/JOINTS: No acute fracture. No Hill-Sachs or Bankart lesion.. Normal glenohumeral and acromioclavicular alignment with moderate osteophyte formation. Preservation of the joint space.. No sclerotic or destructive changes observed. Humeral tendon anchors noted. RAD/Shoulder min 2 Views IMPRESSION: No acute osseous finding.. Moderate glenohumeral and acromioclavicular osteoarthritis. Electronically Signed: Dayron Marley MD at 18:03 EDT ,
[2023-09-13 18:50] VITALS: BP 183/60; PULSE 70; RESP 17; TEMP 36.9; O2SAT 96
== END 2023-09-13 19:04 | disposition home or self-care (01) ==
PROVIDERS: Emergency Provider Student in an Organized Health Care Education/Training Program; PCP Internal Medicine; Visit Provider Student in an Organized Health Care Education/Training Program
DX: S16.1XXA Strain of muscle, fascia and tendon at neck level, initial encounter (principal); S46.911A Strain of unspecified muscle, fascia and tendon at shoulder and upper arm level, right arm, initial encounter; X50.3XXA Overexertion from repetitive movements, initial encounter; Y93.89 Activity, other specified; G89.29 Other chronic pain; I10 Essential (primary) hypertension; Z79.899 Other long term (current) drug therapy; Z87.891 Personal history of nicotine dependence
CPT/HCPCS: 72050; 73030; 99283

== ENCOUNTER 2023-09-20 08:11 | Emergency (ER) | payer MEDICARE, SELFPAY ==
[2023-09-20 08:11] VITALS: BP 169/118; PULSE 89; RESP 22; TEMP 36.4; O2SAT 97
--- NOTE | 2023-09-20 08:47 | EDS_ITS ---
HPI History of Present Illness Chief Complaint: Other, Pain/Inj PFSH PFSH Medical History Carotid stenosis Dizziness GERD (gastroesophageal reflux disease) Hypertension Hypertension Home Medications ?Medication ?Instructions ?Recorded ?Last Taken ?Type diphenhydramine HCl 25 mg capsule 25 mg PO QHS 04/05/17 01/03/22 History (Allergy Relief (diphenhydramine)) calcium carbonate 600 mg-vitamin 1 tab PO DAILY SUPPLEMENT 01/04/22 01/03/22 History D3 5 mcg (200 unit) tablet coenzyme Q10 100 mg capsule (Co 100 mg PO MOWEFR 01/04/22 01/01/22 History Q-10) glucosamine-chondroitin 250 mg-200 1 tab PO BID SUPPLEMENT 01/04/22 01/03/22 History mg tablet multivitamin 1 tab PO DAILY 01/04/22 01/03/22 History omeprazole 20 mg capsule,delayed 40 mg PO QHS 01/04/22 01/03/22 History release rosuvastatin 5 mg tablet (Crestor) 5 mg PO MOWEFR 01/04/22 01/01/22 History valsartan 160 0.5 tab PO BID 01/04/22 01/03/22 History mg-hydrochlorothiazide 12.5 mg tablet meclizine 25 mg tablet 25 mg PO TID PRN dizziness #20 tabs 01/05/22 Unknown Rx cyclobenzaprine 10 mg tablet 10 mg PO TID PRN Muscle Spasm #20 09/13/23 Unknown Rx TABLETS ondansetron 4 mg disintegrating 4 mg PO Q8H PRN PRN Nausea #10 tabs 09/20/23 Unknown Rx tablet oxycodone 5 mg capsule 5 mg PO Q6H PRN pain 3 days #12 09/20/23 Unknown Rx caps prednisone 50 mg tablet 50 mg PO DAILY 5 days #5 tabs 09/20/23 Unknown Rx Allergy/AdvReac Type Severity Reaction Status Date / Time No Known Allergies Allergy Verified 09/13/23 15:56 Family History Father Cancer Prostate CA Mother Hypertension Myocardial infarction at 73 of [place] and pulmonary HTN Surgical History H/O carpal tunnel repair Rotator cuff tear, left lumbarectomy Social History household members: none Smoking Status: Former smoker how long ago did patient quit smokin years ago alcohol intake: never substance use type: does not use what type of physical activity do you participate in: walking frequency: 5-6 times per week duration: 45-60 minutes/day seatbelt use: always EXAM Physical Exam Const Vital Signs: 09/20/23 08:11 09/20/23 08:21 09/20/23 10:24 Temperature 97.5 F L Temperature Source Temporal Pulse Rate 89 Respiratory Rate 22 H Respiratory Pattern Normal Blood Pressure 169/118 H 194/86 H Blood Pressure Mean 135 122 Pulse Ox 97 Oxygen Delivery Method Room Air MDM MDM MDM Narrative Medical decision making narrative: HISTORY OF PRESENT ILLNESS: 82-year-old male presents with neck pain. Notes he had a PRP injection in his right shoulder approximately 4 days ago and since then has had pain in his right shoulder is now migrated to his right paraspinal region. Denies any falls or trauma. Denies any sore throat fever or chills. Notes severe pain that is constant worse with movement improved by rest. Notes has been taking Tylenol only as he says anti-inflammatories interfere with PRP injection. Denies any family or personal history of connective tissue diseases. REVIEW OF SYSTEMS: Pertinent positives: Neck pain Pertinent negatives: Numbness, weakness, slurred speech, facial drooping, loss of vision, upper extremity weakness or numbness PHYSICAL EXAM: Nursing triage notes reviewed, Vital signs reviewed Constitutional: please see mdm HENT: MMM, no oropharyngeal exudates, no tonsillar erythema Eyes: Pupils equal round and reactive to light, Extraocular muscles intact Neck: No stridor, no JVD, full neck ROM no midline step-offs or deformities noted to the cervical spine, TTP over right paraspinal musculature, Lungs: Clear to auscultation, No wheezing or rales. No increased work of breathing, no conversational dyspnea, no accessory muscle use, no nasal flaring. No respiratory distress noted Heart: Regular rate and rhythm, No murmurs, No rubs and No gallops, 2+ distal pulses (radial, femoral, posterior tibial) in all extremities Abdomen: Soft, there is no tenderness, rigidity, rebound or guarding, no obvious peritoneal signs, no palpable pulsatile abdominal masses, no auscultated abdominal bruit : No CVAT Extremities: No edema Neuro: No focal neurological deficits, cranial nerves II through XII intact, 5/5 strength in all extremities. Intact sensation to light touch in all extremities, 2+ reflexes bilateral patella tendons. Normal gait. No ataxia. Intact 5/5 strength with ok sign (median), intact finger abduction (ulnar) intact wrist extension (radial n). Intact sensation in the radial, ulnar, and median nerve distributions., Skin: No rash or lesions noted MEDICAL DECISION MAKING: Chief Complaint: External records reviewed: Imaging reviewed: X-ray of the cervical spine from 6 days ago shows no evidence of obvious injury, diffuse moderate spondylosis. Carotid duplex from 2022 shows mild stenosis of right extra cranial internal carotid, mild stenosis left extracranial internal carotid Factors affecting care: Chronic stenosis, GERD, hypertension Consults: Orthopedics (Dr. Moreno) MDM Narrative: Patient was hemodynamically stable, afebrile and nontoxic-appearing. Exam without step-offs or deformities. No rashes. No HEENT abnormalities such as pharyngitis. No submandibular edema, no bruits to suggest carotid artery dissection. Patient no focal deficits in the upper extremities or cranial nerve deficits to suggest carotid artery occlusion I considered the following differential diagnosis: Coronary dissection, occlusion, cervical spine fracture dislocation, cervical spine herniated disc, musculoskeletal etiology I obtained a broad lab and imaging workup to further elucidate etiology of patient's complaints. I treat the patient with IV anti-inflammatory such as Toradol, Decadron as well as IV narcotic such as morphine. I obtained a CTA of the neck to rule out any bony injury or vessel injury. ALL IMAGES (IF OBTAINED) HAVE BEEN PERSONALLY REVIEWED AND INTERPRETED BY MYSELF. CBC with no leukocytosis, no anemia or thrombocytopenia BMP without evidence of significant electrolyte abnormalities, no anion gap, no acute kidney injury. CTA of the neck shows no evidence of cervical spine bony abnormality, no evidence of large vessel occlusion or dissection The etiology patient complaints remains unclear likely musculoskeletal in origin will give anti-inflammatories and close PCP/surgery follow-up. The patient and/or family, caregivers express understanding. The patient and/or family, caregivers agrees with the plan. Shared decision making: I will have a discussion with the patient and or visitors regarding risk/benefits of further testing or admission. They will be made aware of of the risk/benefits inherent in this decision they will be given the opportunity to voice understanding. Total critical care time today provided was at least 0 minutes. This excludes separately billable procedures. Critical care time (if documented) is secondary to the patient having high probability of clinically significant/life threatening deterioration in the patient's condition which required my urgent intervention. Impression: 1. Musculoskeletal neck pain 2. Neck strain 3. Carotid artery stenosis Dispo: Discharge This note was generated with [employer] dictation software. It may contain incorrect words, spelling, and punctuation that were not noted in review of the chart prior to signing. Lab Data Labs: Laboratory Results - last 24 hr 09/20/23 09:15 WBC 6.4 RBC 4.47 L Hgb 14.2 Hct 40.9 MCV 91.5 MCH 31.8 MCHC 34.7 RDW Std Deviation 42.0 RDW Coeff of Lynne 12.5 Plt Count 206 MPV 9.4 Sodium 136 Potassium 3.6 Chloride 103 Carbon Dioxide 26.0 Anion Gap 7 BUN 13 Creatinine 0.67 L Est GFR (MDRD) Af Amer 145 Est GFR (MDRD) Non-Af 120 BUN/Creatinine Ratio 19.4 Glucose 127 H Calcium 9.2 Radiography Diagnostic Testing: Clinical Impression(s) from Imaging Studies Neck CTA 09/20/23 09:07 IMPRESSION: Minimal plaque formation at the origin of the right and left internal carotid arteries causing less than 50% stenosis. Electronically Signed: Simone Callejas MD at 10:58 EDT , Discharge Plan Triage Chief Complaint: Other, Pain/Inj ED Provider: Sean Abarca Dx/Rx/DC Orders Instructions: ED Cervical Collar Prescriptions: New prednisone 50 mg tablet 50 mg PO DAILY 5 Days Qty: 5 0RF oxycodone 5 mg capsule 5 mg PO Q6H PRN (Reason: pain) 3 Days Qty: 12 0RF ondansetron 4 mg tablet,disintegrating 4 mg PO Q8H PRN PRN (Reason: Nausea) Qty: 10 0RF No Action diphenhydramine HCl [Allergy Relief(diphenhydramin)] 25 mg capsule 25 mg PO QHS multivitamin Tablet 1 tab PO DAILY valsartan-hydrochlorothiazide 160-12.5 mg tablet 0.5 tab PO BID Patient Comments: TAKE 1/2 (ONE-HALF) OF A TABLET TWICE DAILY calcium carbonate-vitamin D3 600 mg-5 mcg (200 unit) Tablet 1 tab PO DAILY omeprazole 20 mg capsule,delayed release(DR/EC) 40 mg PO QHS Patient Comments: TAKE 1 CAPSULE BY MOUTH TWICE DAILY coenzyme Q10 [Co Q-10] 100 mg Capsule 100 mg PO MOWEFR glucosamine-chondroitin 250-200 mg Tablet 1 tab PO BID Rx Instructions: give after food/meal rosuvastatin [Crestor] 5 mg Tablet 5 mg PO MOWEFR meclizine 25 mg tablet 25 mg PO TID PRN (Reason: dizziness) Qty: 20 0RF cyclobenzaprine 10 mg tablet 10 mg PO TID PRN (Reason: Muscle Spasm) Qty: 20 0RF Primary Care Provider: Dalia Coley Referrals: Nguyễn Iyer MD [Med Staff - Active Staff] - Dalia Coley DO [Primary Care Provider] - Olman Wright DO [Med Staff - Active Staff] - Activity Restrictions/Additional Instructions: Thank you for trusting us with your care today! Please take Tylenol (2 pills, 650 mg), ibuprofen (2 pills, 400 mg) every 6 hours as needed for pain and fever control. If the above pain regimen does not control your pain please add oxycodone as needed. Please take prednisone as prescribed please return to the emergency department if your symptoms change or worsen. Please follow with your primary care physician for further outpatient evaluation and management. Print Language: Gabonese Disposition Disposition: Home, Self Care Discharge Date/Time: 09/20/23 14:08
--- NOTE | 2023-09-20 09:07 | CT_ITS ---
STUDY: CTA NECK WITH CONTRAST REASON FOR EXAM: Male, 82 years old. History of carotid stenosis. Dizziness. Hypertension. RADIATION DOSAGE (If Supplied By Facility): CTDIvol = ( 20.06 ) mGy, DLP = ( 531.83 ) mGycm TECHNIQUE: CT angiography with multi-detector data acquisition was performed from the aortic arch to the skull base following intravenous administration of IV 100mL [id number]-[id number]. MIP images were reconstructed from the axial data set. Post-processing of the angiographic images was performed, with multiplanar reformation and 3D reconstruction. Individualized dose optimization techniques were used for this CT. COMPARISON: Comparison is made with prior CTA of the brain dated January 04, 2022. FINDINGS: AORTIC ARCH: There is atherosclerotic calcific plaque formation of the aortic arch and great vessels arising from the aortic arch, without a hemodynamically significant stenosis. There is a normal origin of the brachiocephalic, left common carotid, and left subclavian arteries. RIGHT CAROTID ARTERIES: Normal right common carotid artery (CCA). Normal right common carotid bulb. There is mild atherosclerotic plaque formation of the origin of the right internal carotid artery with less than 50% cross sectional diameter stenosis. Normal visualized cervical portion of the right internal carotid artery. Normal origin of the right external carotid artery (ECA). LEFT CAROTID ARTERIES: Normal left common carotid artery (CCA). Normal left common carotid bulb. There is mild atherosclerotic plaque formation of the origin of the left internal carotid artery with less than 50% cross sectional diameter stenosis. Normal visualized cervical portion of the left internal carotid artery. Normal origin of the left external carotid artery (ECA). VERTEBRAL ARTERIES: Normal bilateral vertebral arteries. CT/CTA Neck W/WO Contrast IMPRESSION: Minimal plaque formation at the origin of the right and left internal carotid arteries causing less than 50% stenosis. Electronically Signed: Simone Callejas MD at 10:58 EDT ,
[2023-09-20] MEDS: Ketorolac 15 MG/ML Vial IV (09:16)
[2023-09-20] MEDS: Morphine 4 MG/ML Syringe IV (09:17)
[2023-09-20] MEDS: dexAMETHasone 10 MG/ML Vial 6 MG IV (09:18)
[2023-09-20 09:24] LABS: Hematocrit 40.9 % (40-54); Hemoglobin 14.2 g/dL (13.0-16.5); Mean Corp Hgb Conc 34.7 g/dL (32-36); Mean Corpuscular Hgb 31.8 pg (27.0-32.0); Mean Corpuscular Volume 91.5 fL (80-94); Mean Platelet Vol. 9.4 fl (6.2-12.0); Platelet Count 206 K/mm3 (150-450); RBC Distribution Width CV 12.5 % (11.6-14.6); Red Blood Count 4.47 M/mm3 (4.6-6.2); White Blood Count 6.4 K/mm3 (4.4-11.0)
[2023-09-20] MEDS: 0.9% Normal Saline (1000mL) 1,000 ML 999 ML IV ×2 (09:31→11:56)
[2023-09-20] MEDS: Ondansetron 4 MG/2 ML Vial IM (09:31)
[2023-09-20 09:37] LABS: Anion Gap 7 (5-15); BUN 13 mg/dL (7-18); BUN/Creat Ratio 19.4 RATIO (10-20); Calcium,Total 9.2 mg/dL (8.5-10.1); Chloride 103 mmol/L (98-107); Creatinine, Serum 0.67 mg/dL (0.70-1.30); EST Glomerular Filtration Rate 120 mL/min (>60); Est Glom Filt Rate - Afr Amer 145 mL/min (>60); Glucose 127 mg/dL (74-106); Potassium 3.6 mmol/L (3.5-5.1); Sodium Level 136 mmol/L (136-145)
[2023-09-20 10:24] VITALS: BP 194/86
[2023-09-20] MEDS: oxyCODONE 5 MG Tablet PO (11:30)
--- NOTE | 2023-09-20 11:54 | RAD.NOTE ---
Pt given DC instructions but had recurrence of severe nausea and dry heaves, IV re-established, medicated per order
[2023-09-20] MEDS: Ondansetron 4 MG/2 ML Vial IV (11:56)
[2023-09-20] MEDS: Metoclopramide 10 MG/2 ML Vial 5 MG IV (13:13)
== END 2023-09-20 14:08 | disposition home or self-care (01) ==
PROVIDERS: Emergency Provider Emergency Medicine; PCP Internal Medicine; Visit Provider Emergency Medicine
DX: S16.1XXA Strain of muscle, fascia and tendon at neck level, initial encounter (principal); I65.23 Occlusion and stenosis of bilateral carotid arteries; Z87.891 Personal history of nicotine dependence; K21.9 Gastro-esophageal reflux disease without esophagitis; I10 Essential (primary) hypertension; Z79.899 Other long term (current) drug therapy
CPT/HCPCS: 70498; 80048; 85027; 96361; 96372; 96374; 96375; 99282; J7030; Q9967; A4216; J2405

== ENCOUNTER 2023-09-27 13:39 | Observation (INO) | payer MEDICARE, SELFPAY ==
[2023-09-27 13:40] VITALS: BP 166/89; PULSE 78; RESP 16; TEMP 36.7; O2SAT 99
--- NOTE | 2023-09-27 14:20 | EDS_ITS ---
HPI History of Present Illness Chief Complaint: Confusion Informant: patient, family and PCP Narrative Narrative: 83-year-old male who has been vomiting recently without abdominal pain, and has been feeling disoriented. Lives at home alone states he is afraid to be at home by himself due to these recent symptoms witching also include pain in his right shoulder and the right neck, and retro-orbital right frontal headache with some photophobia, the latter of which he states does not bother him as much is right now. He states he had some palpitations on occasion at night, but today has not had any but he was at his PCPs office today, he received some IV fluids in the office, and several EKGs that showed he is in and out of atrial fibrillation which was not previously known although he has a history of being in atrial tachycardia in the past. He is on no anticoagulants. Apparently he has been flipping a house and swinging a sledgehammer lately. The patient states that is unrelated to his right shoulder and neck pain which she states preexisted, michael christopher according to his PCPs note, he is been in the ER several times in this past month, trying ice and pain medication to his neck, was prescribed some oxycodone but vomited it up, was then prescribed prednisone after he had a negative CTA of the neck here a week ago. He denies any radicular symptoms in his arms or legs. He denies any chest discomfort or out of breath or near syncope/syncope. Patient is states that due to the vomiting he has not been eating or drinking well and feeling dizziness when he stands due to the stress/pain. [facility] Medical History Carotid stenosis Dizziness GERD (gastroesophageal reflux disease) Hypertension Hypertension Home Medications ?Medication ?Instructions ?Recorded ?Last Taken ?Type multivitamin 1 tab PO DAILY 01/04/22 01/03/22 History aspirin 81 mg capsule 81 mg PO DAILY 09/27/23 Unknown History atenolol 25 mg tablet 25 mg PO DAILY 09/27/23 Unknown History atorvastatin 10 mg tablet 10 mg PO DAILY 09/27/23 Unknown History esomeprazole magnesium 40 mg 40 mg PO DAILY 09/27/23 Unknown History capsule,delayed release (Nexium) fluticasone propionate 50 1 spray intranasal DAILY PRN 09/27/23 Unknown History mcg/actuation nasal allergy symptoms spray,suspension (24 Hour Allergy Relief) hydrochlorothiazide 12.5 mg tablet 12.5 mg PO DAILY 09/27/23 Unknown History hydroxychloroquine 200 mg tablet 200 mg PO BID 09/27/23 Unknown History sildenafil 50 mg tablet 50 mg PO DAILY 09/27/23 Unknown History trazodone 50 mg tablet 50 mg PO QHS PRN PRN insomnia 09/27/23 Unknown History valsartan 80 mg tablet 80 mg PO BID 09/27/23 Unknown History Allergy/AdvReac Type Severity Reaction Status Date / Time No Known Allergies Allergy Verified 09/27/23 13:41 Family History Father Cancer Prostate CA Mother Hypertension Myocardial infarction at 73 of [place] and pulmonary HTN Surgical History H/O carpal tunnel repair Rotator cuff tear, left lumbarectomy Social History household members: none Smoking Status: Former smoker how long ago did patient quit smokin years ago alcohol intake: never substance use type: does not use what type of physical activity do you participate in: walking frequency: 5-6 times per week duration: 45-60 minutes/day seatbelt use: always ROS ROS ED Constitutional Constitutional ED: Denies chills or fever(s) Eyes Eyes: Reports photophobia; Denies change in vision or diplopia ENT ENT ED: Denies rhinorrhea or sore throat Cardiovascular Cardiovascular: Reports palpitations; Denies chest pain Respiratory/Chest Respiratory/Chest: Denies cough or dyspnea Gastrointestinal Gastrointestinal: Reports nausea and vomiting; Denies abdominal pain or diarrhea Genitourinary Genitourinary ED: Denies dysuria or hematuria Musculoskeletal Musculoskeletal: Reports neck pain; Denies back pain Integumentary Denies abscess or rash Neurologic Neurologic: Reports as per HPI, confusion, dizziness and headache(s); Denies abnormal speech, paresthesias or weakness Psychiatric Psychiatric: Denies suicidal thoughts EXAM Physical Exam Const Vital Signs: 09/27/23 13:40 Temperature 98.1 F Temperature Source Temporal Pulse Rate 78 Respiratory Rate 16 Blood Pressure 166/89 H Blood Pressure Mean 114 Pulse Ox 99 Oxygen Delivery Method Room Air Positive well nourished and well developed General Appearance ED: well developed and NAD HEENT Reports moist mucous membranes normocephalic and atraumatic Eyes PERRL and EOMs intact bilaterally Eyes Narrative: wearing sunglasses w/ mild photophobia Neck full ROM and supple Resp normal respiratory effort and clear to auscultation bilaterally Cardio regular rate, regular rhythm and no murmurs Cardio Narrative: Occasionally fast but only last for 2 or 3 seconds GI non-tender and non-distended Auscultation: normoactive bowel sounds Palpation: soft Back/Spine no CVA tenderness General Back: other FROM Extremity normal to inspection General Extremety ED: Negative for edema, pulses abnormal or tenderness General Extremity: Negative for edema or pulses abnormal Neuro oriented x3, CN's II-XII intact bilaterally and no sensory deficits noted Neuro Narrative: Seems to be able to carry on normal conversation Sensorium / Orientation: awake and alert Motor Exam: strength 5/5 throughout Psych Psych Narrative: Flat affect Skin no rashes or lesions noted and no wounds MDM MDM MDM Narrative Medical decision making narrative: Patient was sent with 4 separate EKGs all performed today, one of them may show rapid A-fib but it may also be an ectopic atrial tachycardia, the others all shows sinus rhythm with PACs and I see no A-fib on those. I reviewed some prior records he has not had a CT of the head and given that he is complaining of feeling confused I am obtaining that in addition to labs to assess for dehydration electrolyte disorder renal function, chest x-ray to evaluate for infection that could be contributing to his varying heart rate and rhythm, as well as a troponin to evaluate for myocardial damage. With regards to the patient's paroxysmal rhythm disturbance which could be brief A-fib episodes or PACs, discussed with cardiology Dr. Bird who recommends a Holter monitor and outpatient follow-up. Labs are noted, his troponin is within normal limits and electrolyte no major disorders. mild leukocytosis. Chest x-ray 2 views my interpretation shows no acute pneumonia, and CT head on my interpretation shows no acute intracranial hemorrhage or mass effect, radiology was in agreement on these. I read the report and agree with them. In discussing symptoms more with the patient, he states he is dizzy. His PCP mention that but he did not but now he agrees that he has been dizzy off and on. His vomiting is associated with the dizziness. He states position changes have been triggering the symptoms. He denies feeling near syncopal. He states he has had vertigo in the past that felt like [place] spinning in his head and this is different than that, but he has been walking around and is off balance, and he is afraid for his safety because of the symptoms which is understandable. Apparently he does not feel confused or disoriented, but his PCP felt that he was disoriented while examining him today. His head CT is negative for an acute, plan is to admit for further workup for disequilibrium. His blood pressure is 166/89, it feels different than [place] peripheral vertigo he had in the past so it certainly possible this could be central, but he presents after having symptoms for 3 days or more and he is outside of a 24-hour window so emergent CTA not indicated at this time, vascular imaging desire to can be obtained with MRA while he gets an MRI. History & Record Review Additional record(s) reviewed:: Prior outpatient record and Prior labs (And 4 EKGs) Lab Data Attestation: I reviewed the patient's lab results. Labs: Laboratory Results - last 24 hr 09/27/23 14:19 WBC 13.2 H RBC 4.85 Hgb 15.6 Hct 44.0 MCV 90.7 MCH 32.2 H MCHC 35.5 RDW Std Deviation 41.3 RDW Coeff of Lynne 12.5 Plt Count 238 MPV 9.4 Immature Gran % (Auto) 1.500 H Neut % (Auto) 79.6 H Lymph % (Auto) 11.9 L Reeves % (Auto) 6.7 Eos % (Auto) 0.1 Baso % (Auto) 0.2 Absolute Neuts (auto) 10.5 H Absolute Lymphs (auto) 1.57 Nucleated RBC % 0 Sodium 133 L Potassium 3.6 Chloride 100 Carbon Dioxide 27.0 Anion Gap 6 BUN 14 Creatinine 0.68 L Est GFR (MDRD) Af Amer 144 Est GFR (MDRD) Non-Af 119 BUN/Creatinine Ratio 20.6 H Glucose 103 Calcium 8.7 Troponin I High Sens 40 Radiography Diagnostic Testing: Clinical Impression(s) from Imaging Studies Brain CT 09/27/23 14:22 IMPRESSION: Chronic involutional changes of the brain. Electronically Signed: Simone Callejas MD at 14:43 EDT , Chest X-Ray 09/27/23 14:25 IMPRESSION: Hyperinflation. Prominence of both pulmonary arteries. No acute abnormality is seen. Electronically Signed: Simone Callejas MD at 14:49 EDT , Rhythm Strip Rhythm Strip: Sinus Rhythm Rate: 90 Ectopy: PAC(s) (Sometimes in runs, versus A-fib) Management Discussion w/another healthcare provider: Hospitalist and Kennel Technician (Cardiology Dr. Bird) Discharge Plan Triage Chief Complaint: Confusion ED Provider: Addison Islas Dx/Rx/DC Orders Clinical Impression: Dysequilibrium, Ataxia, Headache, Paroxysmal tachycardia Prescriptions: No Action multivitamin Tablet 1 tab PO DAILY esomeprazole magnesium [Nexium] 40 mg capsule,delayed release(DR/EC) 40 mg PO DAILY trazodone 50 mg tablet 50 mg PO QHS PRN PRN (Reason: insomnia) sildenafil 50 mg tablet 50 mg PO DAILY atenolol 25 mg tablet 25 mg PO DAILY hydroxychloroquine 200 mg tablet 200 mg PO BID atorvastatin 10 mg tablet 10 mg PO DAILY valsartan 80 mg tablet 80 mg PO BID hydrochlorothiazide 12.5 mg tablet 12.5 mg PO DAILY aspirin 81 mg capsule 81 mg PO DAILY fluticasone propionate [24 Hour Allergy Relief] 50 mcg/actuation spray,suspension 1 spray intranasal DAILY PRN (Reason: allergy symptoms) Rx Instructions: administer into each nostril Primary Care Provider: Dalia Coley Referrals: Dalia Coley DO [Primary Care Provider] - Print Language: Faroese Disposition Disposition: Acute Care [facility]
--- NOTE | 2023-09-27 14:22 | CT_ITS ---
STUDY: CT BRAIN WITHOUT CONTRAST REASON FOR EXAM: Male, 83 years old. Confused RADIATION DOSAGE (If Supplied By Facility): CTDIvol = ( 47.06 ) mGy, DLP = ( 960.91 ) mGycm TECHNIQUE: Transaxial CT imaging of the brain was performed without administration of intravenous contrast material. Individualized dose optimization techniques were used for this CT. COMPARISON: Comparison is made with prior study dated January 04, 2022. FINDINGS: Normal soft tissue structures. Normal calvarium. There is mild cerebral atrophy with widening of the extra-axial spaces and ventricular dilatation. There are areas of decreased attenuation within the white matter tracts of the supratentorial brain, consistent with microvascular disease changes. Normal basal ganglia and thalami. Normal brainstem. There is mild cerebellar atrophy. There is no intracranial hemorrhage. There are no findings of an acute ischemic infarction. Atherosclerotic plaque formation of the cavernous portions of the internal carotid arteries bilaterally. Normal visualized paranasal sinuses. CT/Brain/Head without Contrast IMPRESSION: Chronic involutional changes of the brain. Electronically Signed: Simone Callejas MD at 14:43 EDT ,
--- NOTE | 2023-09-27 14:25 | RAD_ITS ---
STUDY: X-RAY CHEST REASON FOR EXAM: Male, 83 years old. Confused TECHNIQUE: PA and lateral views of the chest. COMPARISON: Comparison is made with prior study dated May 11, 2023. FINDINGS: EKG electrodes are seen. Hyperinflation. Scattered calcified granulomas. There is no demonstrated pleural abnormality. Normal size heart. Normal mediastinum and virgie. There is prominence of the pulmonary hilar arteries without peripheral pulmonary vascular congestion, suggesting pulmonary hypertension. There is atherosclerotic calcification of the aortic arch with tortuosity. There are diffuse degenerative changes of the visualized thoracic spine. Prior rotator cuff surgery of the right shoulder. There is no demonstrated abnormality of the visualized soft tissue structures of the upper abdomen. RAD/Chest PA and Lateral IMPRESSION: Hyperinflation. Prominence of both pulmonary arteries. No acute abnormality is seen. Electronically Signed: Simone Callejas MD at 14:49 EDT ,
[2023-09-27 14:32] LABS: Absolute Lymphocyte Count 1.57 X10^3/uL (0.83-4.51); Absolute Neutrophil Count 10.5 X10^3/uL (2.0-7.7); Basophil# 0.03 X10^3/uL; Basophil% 0.2 % (0-1); Eosinophil# 0.01 X10^3/uL; Eosinophils% 0.1 % (0-5); Hemoglobin 15.6 g/dL (13.0-16.5); Lymphocyte # 1.57 X10^3/ul (0.83-4.51); Lymphocyte % 11.9 % (19-41); Mean Corp Hgb Conc 35.5 g/dL (32-36); Mean Corpuscular Hgb 32.2 pg (27.0-32.0); Mean Corpuscular Volume 90.7 fL (80-94); Mean Platelet Vol. 9.4 fl (6.2-12.0); Monocyte# 0.89 X10^3/uL; Monocyte% 6.7 % (0-10); NRBC Flagged by Analyzer 0 % (0-5); Neutrophil # 10.52 X10^3/uL (2.7-7.7); Neutrophil % 79.6 % (47-70); Platelet Count 238 K/mm3 (150-450); RBC Distribution Width CV 12.5 % (11.6-14.6); RBC Distribution Width SD 41.3 fl (35.1-43.9); Red Blood Count 4.85 M/mm3 (4.6-6.2); White Blood Count 13.2 K/mm3 (4.4-11.0)
[2023-09-27] MEDS: 0.9% Normal Saline (1000mL) 1,000 ML 150 ML IV (14:42)
[2023-09-27 15:11] LABS: Anion Gap 6 (5-15); BUN 14 mg/dL (7-18); BUN/Creat Ratio 20.6 RATIO (10-20); Calcium,Total 8.7 mg/dL (8.5-10.1); Chloride 100 mmol/L (98-107); Creatinine, Serum 0.68 mg/dL (0.70-1.30); EST Glomerular Filtration Rate 119 mL/min (>60); Est Glom Filt Rate - Afr Amer 144 mL/min (>60); Glucose 103 mg/dL (74-106); Potassium 3.6 mmol/L (3.5-5.1); Sodium Level 133 mmol/L (136-145); Troponin-I HS 40 pg/mL (3.0-78.0)
[2023-09-27 15:31] LABS: Bacteria 0 SEEN /hpf (None Seen); Mucous, Urine 0 SEEN /hpf (<or=2+); Red Blood Cells-Urine 0 SEEN /hpf (0-5); Squamous Epithelial Cells - UA 0 SEEN /hpf (0-5)
[2023-09-27 15:40] VITALS: BMI 23.4
[2023-09-27 15:51] VITALS: BP 166/77; PULSE 107; RESP 22; O2SAT 100
[2023-09-27 15:56] LABS: Color, Urine Yellow (Yellow); Glucose, Dipstick Normal (Normal); Ketone-Dipstick 15 mg/dl (Negative); Leukocyte Esterase-Dipstick Negative /ul (Negative); Nitrite-Dipstick Negative (Negative); Occult Blood-Urine Negative /ul (Negative); Protein-Dipstick Negative (Negative); Urine Bilirubin Dipstick Negative (Negative); Urine Clarity Clear (Clear); Urine Urobilinogen Normal (Normal)
[2023-09-27 16:17] LABS: White Blood Cells 0-5 SEEN /hpf (0-5)
--- NOTE | 2023-09-27 16:36 | NURSING ---
PCU OLEGHE DYSEQUILIBRIUM, ATAXIA, PAROXYSMAL TACHYCARDIA
[2023-09-27 16:37] VITALS: BP 166/77; PULSE 101; RESP 18; TEMP 36.4; O2SAT 98
[2023-09-27 17:00] VITALS: BP 160/89; PULSE 83; RESP 18; O2SAT 98
--- NOTE | 2023-09-27 17:07 | MRI_ITS ---
HISTORY: neck pain. TECHNIQUE: Multiplanar and multisequence MR images of the cervical spine were obtained without contrast. 283 images. COMPARISON: CTA 09/20/2023. CR 09/13/2023. FINDINGS: VERTEBRAE: Vertebral body heights maintained. Mild degenerative endplate changes at multiple levels. No other significant bone marrow signal abnormality. VERTEBRAL ALIGNMENT: No anterior or posterior subluxation. SPINAL CORD: Cervical cord signal and morphology within normal limits. SOFT TISSUES: No prevertebral fluid collection. INTERVERTEBRAL DISCS: C2-3: No significant posterior disc protrusion, central canal stenosis, or foraminal narrowing. C3-4: Posterior disc bulge osteophyte complex with uncovertebral and facet arthropathy resulting in mild central canal stenosis and bilateral foraminal narrowing. C4-5: Posterior disc bulge osteophyte complex with uncovertebral and facet arthropathy resulting in mild-moderate central canal stenosis and mild bilateral foraminal narrowing. C5-6, C6-7: Posterior disc bulge osteophyte complexes with uncovertebral and facet arthropathy resulting in mild central canal stenosis and bilateral foraminal narrowing. C7-T1: Minimal disc bulge without significant central canal stenosis or foraminal narrowing. MRI/Spine Cervical (Routine) IMPRESSION: Mild multilevel degenerative disc disease as above. Electronically Signed: Charito Alford MD at 11:37 EDT ,
--- NOTE | 2023-09-27 17:07 | MRI_ITS ---
HISTORY: dizziness and vertigo. TECHNIQUE: Multiplanar and multisequence MR images of the brain were obtained before and after the intravenous administration of 15 mL Clariscan. 356 images. COMPARISON: CT prior day, MRI 01/05/2022. FINDINGS: BRAIN PARENCHYMA: Mild foci of increased T2 FLAIR signal in the bilateral cerebral white matter again seen. No abnormal focus of restricted diffusion. No acute intracranial hemorrhage identified. No enhancing lesion in the brain parenchyma. CSF SPACES: Chronic volume loss. No significant midline shift or other mass effect.No extra-axial fluid collection. VASCULAR SYSTEM: Major intracranial flow voids are maintained. PARANASAL SINUSES AND MASTOID AIR CELLS: No significant air fluid levels. ORBITS: Bilateral lens resections. MRI/Brain W/WO Contrast IMPRESSION: No evidence for acute infarct or enhancing intracranial mass. Chronic involutional and white matter changes. Electronically Signed: Charito Alford MD at 11:17 EDT ,
[2023-09-27 17:35] VITALS: BP 163/92; PULSE 74; RESP 18; TEMP 36.6; O2SAT 98; BMI 21.5
[2023-09-27] MEDS: Scopolamine 1mg/72hr Patch 1 PATCH TD (18:14)
[2023-09-27] MEDS: Ketorolac 15 MG/ML Vial IV (18:14)
[2023-09-27] MEDS: Meclizine HCl 25 MG Tablet PO ×2 (18:15→21:10)
[2023-09-27] MEDS: Acetaminophen 500 MG Tablet 1000 MG PO (18:15)
[2023-09-27] MEDS: cycloBENZAPRine HCl 5 MG TABLET PO (18:15)
--- NOTE | 2023-09-27 18:22 | HP.PCM_ITS ---
[facility] - General General Date of Admission: 09/27/23 Date of Service: 09/27/23 HPI Narrative LIA GALLEGOS, is a 83 M who presents with due to his history of persistent right-sided neck pain, dizziness and imbalance. Has had visits to emergency departments due to the pain and underwent a CT angiogram of the neck that was negative for dissection or any significant large vessel stenosis. Patient now presenting with persistent nausea and vomiting and continued pain and dizziness. Patient denies any dysphagia or diplopia. Denies any tinnitus. He does use a hearing aid. No change in hearing. Denies any headache No speech difficulties. [facility] Medical History Carotid stenosis Dizziness GERD (gastroesophageal reflux disease) Hypertension Hypertension Home Medications ?Medication ?Instructions ?Recorded ?Last Taken ?Type aspirin 81 mg capsule 81 mg PO DAILY HEART HEALTHY 09/27/23 09/27/23 History atenolol 25 mg tablet 25 mg PO DAILY HTN 09/27/23 09/27/23 History atorvastatin 10 mg tablet 10 mg PO DAILY HIGH CHOLESTEROL 09/27/23 09/27/23 History esomeprazole magnesium 40 mg 40 mg PO DAILY GERD 09/27/23 09/27/23 History capsule,delayed release (Nexium) fluticasone propionate 50 1 spray intranasal DAILY PRN 09/27/23 Unknown History mcg/actuation nasal allergy symptoms spray,suspension (24 Hour Allergy Relief) hydroxychloroquine 200 mg tablet 200 mg PO BID IMMUNOSUPPRESSIVE 09/27/23 09/27/23 History sildenafil 50 mg tablet 50 mg PO DAILY PULMONARY HTN 09/27/23 09/27/23 History trazodone 50 mg tablet 50 mg PO QHS PRN insomnia 09/27/23 Unknown History valsartan 80 mg tablet 80 mg PO BID HTN 09/27/23 09/27/23 History Allergy/AdvReac Type Severity Reaction Status Date / Time No Known Allergies Allergy Verified 09/27/23 13:41 Family History Father Cancer Prostate CA Mother Hypertension Myocardial infarction at 73 of [place] and pulmonary HTN Surgical History H/O carpal tunnel repair Rotator cuff tear, left lumbarectomy Social History household members: none Smoking Status: Former smoker how long ago did patient quit smokin years ago alcohol intake: never substance use type: does not use what type of physical activity do you participate in: walking frequency: 5-6 times per week duration: 45-60 minutes/day seatbelt use: always ROS ROS Narrative Denies any chest pain or shortness of breath. All other systems reviewed and essentially negative as above in the body of the history. Vital Signs Vital Signs Vital Signs: 09/27/23 13:40 09/27/23 15:51 09/27/23 16:37 Temperature 36.7 C 36.4 C L Temperature Source Temporal Pulse Rate 78 107 H 101 H Respiratory Rate 16 22 H 18 Blood Pressure 166/89 H 166/77 H 166/77 H Blood Pressure Mean 114 106 106 Pulse Ox 99 100 98 Oxygen Delivery Method Room Air 09/27/23 17:00 Temperature Temperature Source Pulse Rate 83 Respiratory Rate 18 Blood Pressure 160/89 H Blood Pressure Mean 112 Pulse Ox 98 Oxygen Delivery Method Room Air Weight Weight: 74.1 kg Body Mass Index (BMI) 21.5 Physical Exam Narrative General exam. Elderly man, in painful distress, appears quite uncomfortable, restless and irritable HEENT. Oral mucosa moist, no pallor or jaundice. Noted significant tenderness in the right TMJ and scalp tenderness in the right temporalis. Neck. Neck is slightly stiff, tenderness in the right side of his neck along cervical vertebrae and posteriorly in the midline as well. Muscle tension noted in the right cervical muscle groups. Lungs. Clear to auscultation without any wheezing. Heart. First and second sounds with no murmurs. Extremities. No pedal edema. 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 Conscious and alert 20 x 3. Cranial 2-12 grossly intact. Power is 5 out of 5 in all extremities. Results Medical Records Data Attestation: I reviewed the patient's medical records Lab / Micro Data Attestation: I reviewed the patient's lab results. 09/27/23 14:19 09/27/23 14:19 Labs: Laboratory Results - last 24 hr 09/27/23 14:19: WBC 13.2 H, RBC 4.85, Hgb 15.6, Hct 44.0, MCV 90.7, MCH 32.2 H, MCHC 35.5, RDW Std Deviation 41.3, RDW Coeff of Lynne 12.5, Plt Count 238, MPV 9.4, Immature Gran % (Auto) 1.500 H, Neut % (Auto) 79.6 H, Lymph % (Auto) 11.9 L , Banks % (Auto) 6.7, Eos % (Auto) 0.1, Baso % (Auto) 0.2, Absolute Neuts (auto) 10.5 H, Absolute Lymphs (auto) 1.57, Nucleated RBC % 0, Sodium 133 L, Potassium 3.6, Chloride 100, Carbon Dioxide 27.0, Anion Gap 6, BUN 14, Creatinine 0.68 L, Est GFR (MDRD) Af Amer 144, Est GFR (MDRD) Non-Af 119, BUN/Creatinine Ratio 20.6 H, Glucose 103, Calcium 8.7, Troponin I High Sens 40 09/27/23 15:20: Urine Color Yellow, Urine Clarity Clear, Urine pH 7.0, Ur Specific [place] 1.010, Urine Protein Negative, Urine Glucose (UA) Normal, Urine Ketones 15 H, Urine Occult Blood Negative, Urine Nitrite Negative, Urine Bilirubin Negative, Urine Urobilinogen Normal, Ur Leukocyte Esterase Negative, Urine RBC 0 SEEN, Urine WBC 0-5 SEEN, Ur Squamous Epith Cells 0 SEEN, Urine Bacteria 0 SEEN, Urine Mucus 0 SEEN Rhythm Strip Rhythm Strip: Sinus Rhythm Rate: 90 Ectopy: PAC(s) (Sometimes in runs, versus A-fib) Imaging Radiology Impression Brain CT 09/27/23 14:22 IMPRESSION: Chronic involutional changes of the brain. Electronically Signed: Simone Callejas MD at 14:43 EDT , Chest X-Ray 09/27/23 14:25 IMPRESSION: Hyperinflation. Prominence of both pulmonary arteries. No acute abnormality is seen. Electronically Signed: Simone Callejas MD at 14:49 EDT , Assessment & Plan Assessment/Plan (1) Acute strain of neck muscle: QUALIFIERS: Encounter type: subsequent encounter Qualified Code(s): S16.1XXD - Strain of muscle, fascia and tendon at neck level, subsequent encounter PLAN: Plan 1. Right-sided neck pain. Suspected to be secondary to neck sprain/strain. Possible underlying cervical spondylosis might be the etiology. Will order cervical spine MRI. Muscle relaxants and analgesics (NSAIDs and Tylenol). Noted significant tenderness in the right TMJ. Possible this is referred pain from TMJ dysfunction/arthritis. Noted tenderness in the right temporalis and scalp. Will check sed rate to rule out temporal arteritis. 2. Persistent dizziness and unsteadiness of gait. Slight clumsiness in the right upper extremity on examination. Will order MRI of the brain with and without contrast. Consider neurology consultation. 3. Protracted nausea and vomiting. Possible central origin. Will start patient on scopolamine patch. Scheduled Zofran. Supportive care including IV fluids. Charges/Coding Visit Charges Inpatient E&M: 66950 Init Hosp L3
[2023-09-27] MEDS: Ondansetron 4 MG/2 ML Vial 8 MG IV (18:25)
[2023-09-27 18:35] LABS: Hemoglobin A1c 5.1 % (3.8-5.6)
[2023-09-27] MEDS: KCl 20MEQ in D5NS 20 MEQ/1,000 ML IV.SOLN. 125 MEQ IV (18:40)
[2023-09-27 20:04] LABS: Erythrocyte Sedimentation Rate 3 mm/hr (0-20)
[2023-09-27 20:45] LABS: Vitamin B12 477 pg/mL (211-911)
[2023-09-27] MEDS: Losartan Potassium 25 MG Tablet PO (21:10)
[2023-09-27] MEDS: Hydroxychloroquine 200 MG Tablet PO (21:11)
[2023-09-27 23:17] VITALS: BP 155/78; PULSE 73; RESP 18; TEMP 35.9; O2SAT 100
[2023-09-28] MEDS: cycloBENZAPRine HCl 5 MG TABLET PO ×3 (00:19→14:45)
[2023-09-28] MEDS: Ketorolac 15 MG/ML Vial IV (00:19)
[2023-09-28] MEDS: KCl 20MEQ in D5NS 20 MEQ/1,000 ML IV.SOLN. 125 MEQ IV ×2 (02:17→11:57)
[2023-09-28] MEDS: Meclizine HCl 25 MG Tablet PO ×2 (05:21→14:45)
[2023-09-28] MEDS: Ondansetron 4 MG/2 ML Vial 8 MG IV ×2 (05:21→14:49)
[2023-09-28 05:44] VITALS: BP 144/93; PULSE 75; RESP 18; TEMP 36.7; O2SAT 97
[2023-09-28 06:26] LABS: Absolute Lymphocyte Count 2.19 X10^3/uL (0.83-4.51); Absolute Neutrophil Count 5.1 X10^3/uL (2.0-7.7); Basophil# 0.05 X10^3/uL; Basophil% 0.6 % (0-1); Eosinophil# 0.05 X10^3/uL; Eosinophils% 0.6 % (0-5); Hemoglobin 13.4 g/dL (13.0-16.5); Lymphocyte # 2.19 X10^3/ul (0.83-4.51); Lymphocyte % 26.3 % (19-41); Mean Corp Hgb Conc 34.4 g/dL (32-36); Mean Corpuscular Hgb 31.9 pg (27.0-32.0); Mean Corpuscular Volume 92.9 fL (80-94); Mean Platelet Vol. 9.2 fl (6.2-12.0); Monocyte% 9.6 % (0-10); NRBC Flagged by Analyzer 0 % (0-5); Neutrophil % 61.1 % (47-70); Platelet Count 203 K/mm3 (150-450); RBC Distribution Width CV 12.7 % (11.6-14.6); RBC Distribution Width SD 43.5 fl (35.1-43.9); White Blood Count 8.3 K/mm3 (4.4-11.0)
[2023-09-28 07:01] LABS: ALB/GLOB Ratio 1.2 RATIO (0.9-2.4); AST(SGOT) 10 U/L (15-37); Alanine Aminotransfer ALT/SGPT 20 U/L (16-61); Alkaline Phosphatase 31 U/L (45-117); Anion Gap 3 (5-15); BUN 13 mg/dL (7-18); BUN/Creat Ratio 18.3 RATIO (10-20); Calcium,Total 8.2 mg/dL (8.5-10.1); Chloride 107 mmol/L (98-107); Creatinine, Serum 0.71 mg/dL (0.70-1.30); EST Glomerular Filtration Rate 112 mL/min (>60); Est Glom Filt Rate - Afr Amer 136 mL/min (>60); Estimated Creatinine Clearance 73.33 ml/min; Globulin 2.4 g/dL (2.2-4.2); Glucose 99 mg/dL (74-106); Potassium 3.6 mmol/L (3.5-5.1); Protein, Total 5.4 g/dL (6.4-8.2); Sodium Level 137 mmol/L (136-145)
[2023-09-28 08:51] VITALS: BP 156/82; PULSE 83; RESP 16; TEMP 36.8; O2SAT 99
[2023-09-28] MEDS: Enoxaparin 40 MG/0.4 ML Syringe SC (08:58)
[2023-09-28] MEDS: Pantoprazole Sodium 40 MG Tablet PO (08:58)
[2023-09-28] MEDS: Atorvastatin Calcium 10 MG Tablet PO (08:59)
[2023-09-28] MEDS: Hydroxychloroquine 200 MG Tablet PO (08:59)
[2023-09-28] MEDS: Atenolol 25 MG Tablet PO (08:59)
[2023-09-28] MEDS: Aspirin 81 MG TAB.CHEW PO (08:59)
[2023-09-28] MEDS: Losartan Potassium 25 MG Tablet PO (08:59)
--- NOTE | 2023-09-28 14:29 | CHAPLAIN ---
Type of Pastoral Visit _x__ Initial Visit ___ Follow-up Visit ___ On-call Visit ___ General Patient Visit ___ Spiritual Assessment ___ Family Conference ___ Bereavement ___ Rapid Response ___ Code Blue ___ Other (describe below) Pastoral Care Referral From _x__ Patient ___ Family ___ Nurse ___ Physician ___ District Court Justice ___ Spray I Painter ___ Other (describe below) Sacrament/Intervention _x__ Active listening ___ Anointing ___ Yarsanism ___ Bereavement ___ Communion ___ Chelsie exploration ___ _x__ Life review _x__ Prayer ___ Reconciliation ___ Sacrament of Sick _x__ Supportive presence ___ Wedding ___ Other (describe below) Pastoral Comments patient expresses excitement and care in the visit of this lumber buyer to see him; pt is talkative and expressive to acknowledge presence of help and God's answers to many prayers; pt reviews his own chelsie, mentions his 's passing; and the future all with new sense of contentment and enthusiasm. prayer welcomed; daughter was present in the room but later lift
[2023-09-28 14:42] VITALS: BP 140/68; PULSE 66; RESP 16; TEMP 36.7; O2SAT 97
--- NOTE | 2023-09-28 14:54 | DCINST_ITS ---
Discharge Instructions Diet Discharge Diet: Low fat / Low cholesterol Activity Discharge Activity: Return to Normal Activity Weight Bearing Status: Weight bearing as tolerated Dressing / Incision Call your doctor if you observe: Fever of 101 or Higher, Shortness of breath, Dizziness, Swelling in the ankles, Chest pain and Increased palpitations (irregular heartbeat) Follow Up Care Test Results: Test results from this visit will be discussed in further detail at your follow- up appointment, if applicable. Discharge Plan Admission Admit Date/Time: 09/27/23 17:09 Primary Reason for Your Visit: dizziness Attending Provider: Hetal Ruvalcaba Primary Care Provider: Dalia Coley Consulting Providers: Barry Garrison Instructions Patient Instructions: ED FALL-from [id number] Discharge Orders/Prescriptions Prescriptions: New meclizine 25 mg Tablet 25 mg PO TID PRN (Reason: dizziness) Qty: 30 0RF Continued esomeprazole magnesium [Nexium] 40 mg capsule,delayed release(DR/EC) 40 mg PO DAILY trazodone 50 mg tablet 50 mg PO QHS PRN (Reason: insomnia) sildenafil 50 mg tablet 50 mg PO DAILY atenolol 25 mg tablet 25 mg PO DAILY hydroxychloroquine 200 mg tablet 200 mg PO BID atorvastatin 10 mg tablet 10 mg PO DAILY valsartan 80 mg tablet 80 mg PO BID aspirin 81 mg capsule 81 mg PO DAILY fluticasone propionate [24 Hour Allergy Relief] 50 mcg/actuation spray,suspen mahendra 1 spray intranasal DAILY PRN (Reason: allergy symptoms) Rx Instructions: administer into each nostril Referrals / Follow Up: Nithin Valdovinos MD [Med Staff - Active Staff] - Within 1 Month (see for evaluation of cervical spinal stenosis) Eddie Martin MD [Med Staff - Active Staff] - Within 2 Weeks (see to establish care for vertigo) Dalia Coley, [Primary Care Provider] - Within 1 Week Disposition Disposition (needs filled in before D/C Order can be placed): Home, Self Care
--- NOTE | 2023-09-28 14:57 | PCM.DC.SUM ---
Providers Date of Admission: 09/27/23 Date of Discharge: 09/28/23 Primary Care Physician: Dr. Dalia Coley DO Reason For Visit: DIZZINESS Diagnosis Discharge Diagnosis (1) Acute strain of neck muscle: Status: Acute Code(s): S16.1XXA - Strain of muscle, fascia and tendon at neck level, initial encounter Qualifiers: Encounter type: subsequent encounter Qualified Code(s): S16.1XXD - Strain of muscle, fascia and tendon at neck level, subsequent encounter Medications at Discharge Home Medications aspirin 81 mg capsule 81 mg PO DAILY HEART HEALTHY 09/27/23 atenolol 25 mg tablet 25 mg PO DAILY HTN 09/27/23 atorvastatin 10 mg tablet 10 mg PO DAILY HIGH CHOLESTEROL 09/27/23 esomeprazole magnesium 40 mg capsule,delayed release (Nexium) 40 mg PO DAILY GERD 09/27/23 fluticasone propionate 50 mcg/actuation nasal spray,suspension (24 Hour Allergy Relief) 1 spray intranasal DAILY PRN allergy symptoms 09/27/23 hydroxychloroquine 200 mg tablet 200 mg PO BID IMMUNOSUPPRESSIVE 09/27/23 sildenafil 50 mg tablet 50 mg PO DAILY PULMONARY HTN 09/27/23 trazodone 50 mg tablet 50 mg PO QHS PRN insomnia 09/27/23 valsartan 80 mg tablet 80 mg PO BID HTN 09/27/23 meclizine 25 mg tablet 25 mg PO TID PRN dizziness #30 tabs 09/28/23 Hospital Course Operations None Procedures None Summary of Care Provided Minutes Spent on Discharge: 55 Hospital Course: Patient is an 83-year-old male with a past medical history as outlined was admitted through the ED on 09/27/2023 with a complaint of right-sided neck pain with dizziness and imbalance. He had come into the ED for the symptoms and had a CTA of the neck which showed no evidence of dissection and no hemodynamically significant stenosis. CT of the brain showed no acute intracranial pathology either. He subsequently came in with persistent nausea and vomiting with persistent dizziness and pain. He denied any ringing in his ears. Patient admitted to using a hearing aid but had not had any change in his hearing. Review of systems otherwise negative. On admission his symptoms were thought to be due to neck sprain and strain with possible underlying cervical spondylosis. Cervical spine MRI showed multi level degenerative disc disease. His symptoms had completely resolved by the time of my review. He was able to ambulate with therapy. MRI of the brain showed no evidence of a stroke. He was placed on meclizine and scopolamine patch but did not help with the symptoms. Patient felt much better and opted to go home. He was referred to spine surgery on account of the cervical stenosis the patient was told that this was unlikely to be the cause of his symptoms. Patient said he had already established care with ENT on outpatient basis and so would continue to follow-up with ENT. He is follow-up with his primary care doctor within 1 to 2 weeks. Patient seen and examined prior to discharge. He had no active complaints and had an uneventful night. Review of systems otherwise negative. Labs and vitals reviewed. Home medication reviewed and reconciled. Physical Exam Const alert, oriented x3 and no apparent distress General Appearance: cooperative, comfortable and well kempt HEENT normocephalic, head/scalp atraumatic, hearing grossly normal bilaterally, moist oral mucous membranes and oropharynx normal Mouth: oral and palatal mucosa normal Eyes PERRL, EOMs intact bilaterally and conjunctivae normal Neck no lymphadenopathy, supple and no JVD Resp normal respiratory effort, no retractions, no use of accessory muscles and clear to auscultation bilaterally Cardio regular rate, regular rhythm, S1 normal heart sound, S2 normal heart sound and no murmurs GI normal to inspection, nondistended, normoactive bowel sounds, soft to palpation, non-tender and non-distended Extremity normal to inspection, full ROM and no clubbing, cyanosis or edema Skin no rashes or lesions noted, no wounds, skin turgor normal and no jaundice Neuro oriented x3, CN's II-XII intact bilaterally, moves all extremities, no focal motor deficits and no sensory deficits noted Sensorium / Orientation: awake and alert Speech: speech normal Motor Exam: strength 5/5 throughout Psych affect normal Weight / BMI Weight Weight: 163 lb 5.8 oz Body Mass Index (BMI) 21.5 ABG / Lab / Microbiology Data 09/28/23 05:40 09/28/23 05:40 Laboratory: Laboratory Results - last 24 hr 09/27/23 14:19: ESR 3, Sodium 133 L, Potassium 3.6, Chloride 100, Carbon Dioxide 27.0, Anion Gap 6, BUN 14, Creatinine 0.68 L, Est GFR (MDRD) Af Amer 144, Est GFR (MDRD) Non-Af 119, BUN/Creatinine Ratio 20.6 H, Glucose 103, Hemoglobin A1c 5.1, Calcium 8.7, Troponin I High Sens 40 09/27/23 15:20: Urine Color Yellow, Urine Clarity Clear, Urine pH 7.0, Ur Specific [place] 1.010, Urine Protein Negative, Urine Glucose (UA) Normal, Urine Ketones 15 H, Urine Occult Blood Negative, Urine Nitrite Negative, Urine Bilirubin Negative, Urine Urobilinogen Normal, Ur Leukocyte Esterase Negative, Urine RBC 0 SEEN, Urine WBC 0-5 SEEN, Ur Squamous Epith Cells 0 SEEN, Urine Bacteria 0 SEEN, Urine Mucus 0 SEEN 09/27/23 20:00: Vitamin B12 477 09/28/23 05:40: WBC 8.3, RBC 4.20 L, Hgb 13.4, Hct 39.0 L, MCV 92.9, MCH 31.9, MCHC 34.4, RDW Std Deviation 43.5, RDW Coeff of Lynne 12.7, Plt Count 203, MPV 9.2, Immature Gran % (Auto) 1.800 H, Neut % (Auto) 61.1, Lymph % (Auto) 26.3, [place] % (Auto) 9.6, Eos % (Auto) 0.6, Baso % (Auto) 0.6, Absolute Neuts (auto) 5.1, Absolute Lymphs (auto) 2.19, Nucleated RBC % 0, Sodium 137, Potassium 3.6, Chloride 107, Carbon Dioxide 27.0, Anion Gap 3 L, BUN 13, Creatinine 0.71, Estim Creat Clear Calc 73.33, Est GFR (MDRD) Af Amer 136, Est GFR (MDRD) Non-Af 112, BUN/Creatinine Ratio 18.3, Glucose 99, Calcium 8.2 L, Total Bilirubin 1.10 H, AST 10 L, ALT 20, Alkaline Phosphatase 31 L, Total Protein 5.4 L, Albumin 3.0 L, Globulin 2.4, Albumin/Globulin Ratio 1.2 Radiography Diagnostic Testing: Radiology Impression Brain MRI 09/27/23 17:07 IMPRESSION: No evidence for acute infarct or enhancing intracranial mass. Chronic involutional and white matter changes. Electronically Signed: Charito Alford MD at 11:17 EDT , Cervical Spine MRI 09/27/23 17:07 IMPRESSION: Mild multilevel degenerative disc disease as above. Electronically Signed: Charito Alford MD at 11:37 EDT , D/C Instructions Discharge Diet: Low fat / Low cholesterol Weight Bearing Status: Weight bearing as tolerated Call your doctor if you observe: Fever of 101 or Higher, Shortness of breath, Dizziness, Swelling in the ankles, Chest pain and Increased palpitations (irregular heartbeat) Meaningful Use Info Meaningful Use Meaningful Use Diagnoses (Choose all that apply): None applicable Ischemic Stroke Statin Dosing Therapy Reference: STATIN DOSE THERAPY REFERENCE: * Patients > 75 years receive moderate or high dose statin therapy. * Patients 75 years or YOUNGER should receive HIGH intensity statin dose unless contraindicated. You will be required to document reason for non-treatment if statin daily dose does not meet guidelines. HIGH DOSE STATIN THERAPY DAILY Atorvastatin > than or = to 40 mg Rosuvastatin > than or = to 20 mg Amlodipine + Atorvastatin > than or = to 2.5/40 mg Ezetimibe + Simvastatin 10/80 mg Simvastatin 80mg Discharge Plan Admission Admit Date/Time: 09/27/23 17:09 Primary Reason for Your Visit: dizziness Attending Provider: Hetal Ruvalcaba Primary Care Provider: Dalia Coley Consulting Providers: Barry Garrison Instructions Patient Instructions: ED FALL-from [id number] Discharge Orders/Prescriptions Prescriptions: New meclizine 25 mg Tablet 25 mg PO TID PRN (Reason: dizziness) Qty: 30 0RF Continued esomeprazole magnesium [Nexium] 40 mg capsule,delayed release(DR/EC) 40 mg PO DAILY trazodone 50 mg tablet 50 mg PO QHS PRN (Reason: insomnia) sildenafil 50 mg tablet 50 mg PO DAILY atenolol 25 mg tablet 25 mg PO DAILY hydroxychloroquine 200 mg tablet 200 mg PO BID atorvastatin 10 mg tablet 10 mg PO DAILY valsartan 80 mg tablet 80 mg PO BID aspirin 81 mg capsule 81 mg PO DAILY fluticasone propionate [24 Hour Allergy Relief] 50 mcg/actuation spray,suspension 1 spray intranasal DAILY PRN (Reason: allergy symptoms) Rx Instructions: administer into each nostril Referrals / Follow Up: Nithin Valdovinos MD [Med Staff - Active Staff] - Within 1 Month (see for evaluation of cervical spinal stenosis) Eddie Martin MD [Med Staff - Active Staff] - Within 2 Weeks (see to establish care for vertigo) Dalia Coley DO [Primary Care Provider] - Within 1 Week Disposition Disposition (needs filled in before D/C Order can be placed): Home, Self Care Charges/Coding Visit Charges Inpatient E&M: 45342 Disch Hosp >30min
--- NOTE | 2023-09-28 15:34 | CASEMGMT ---
Patient has order for discharge. RN CM in to discuss needs at discharge. Patient states he is attending outpatient therapy at [facility]. Patient denies need or help at discharge. Patient had no further questions or concerns.
--- NOTE | 2023-09-28 16:19 | PHA.DC_ITS ---
Pharmacy [place] Med Reconciliation Pharmacy Service has performed discharge medication reconciliation for this patient. Medication education papers prepared, patient discharged before I was able to crisis intervention counselor. Medications reviewed. The patient's discharge medication list was reviewed for discrepancies and discrepancies were resolved. Medications at Discharge Home Medications aspirin 81 mg capsule 81 mg PO DAILY HEART HEALTHY 09/27/23 atenolol 25 mg tablet 25 mg PO DAILY HTN 09/27/23 atorvastatin 10 mg tablet 10 mg PO DAILY HIGH CHOLESTEROL 09/27/23 esomeprazole magnesium 40 mg capsule,delayed release (Nexium) 40 mg PO DAILY GERD 09/27/23 fluticasone propionate 50 mcg/actuation nasal spray,suspension (24 Hour Allergy Relief) 1 spray intranasal DAILY PRN allergy symptoms 09/27/23 hydroxychloroquine 200 mg tablet 200 mg PO BID IMMUNOSUPPRESSIVE 09/27/23 sildenafil 50 mg tablet 50 mg PO DAILY PULMONARY HTN 09/27/23 trazodone 50 mg tablet 50 mg PO QHS PRN insomnia 09/27/23 valsartan 80 mg tablet 80 mg PO BID HTN 09/27/23 meclizine 25 mg tablet 25 mg PO TID PRN dizziness #30 tabs 09/28/23
== END 2023-09-28 14:55 | disposition home or self-care (01) ==
LOC: ED 15:45 → PCU 17:21
PROVIDERS: Admitting Provider Internal Medicine; Emergency Provider Emergency Medicine; PCP Internal Medicine; Visit Provider Student in an Organized Health Care Education/Training Program
DX: S16.1XXA Strain of muscle, fascia and tendon at neck level, initial encounter (principal); I47.9 Paroxysmal tachycardia, unspecified; I48.91 Unspecified atrial fibrillation; R42 Dizziness and giddiness; Z87.891 Personal history of nicotine dependence; M25.511 Pain in right shoulder; Z79.82 Long term (current) use of aspirin; R41.0 Disorientation, unspecified; R11.2 Nausea with vomiting, unspecified; I10 Essential (primary) hypertension; K21.9 Gastro-esophageal reflux disease without esophagitis; Z79.899 Other long term (current) drug therapy; X58.XXXA Exposure to other specified factors, initial encounter
CPT/HCPCS: 36415; 70450; 70553; 71046; 72141; 80048; 80053; 81001; 82607; 83036; 84484; 85025; 85652; 96361; 96372; 96374; 96375; 96376; 99221; 99285; A9575; J7030; A4216; G0378; J2405

== ENCOUNTER → 2023-10-04 | Outpatient (CLI) | payer MEDICARE, SELFPAY | END | disposition home or self-care (01) | LOC: PSN 12:05 | PROVIDERS: PCP Internal Medicine; Referring Provider Internal Medicine; Visit Provider Internal Medicine | DX: I48.91 Unspecified atrial fibrillation (principal) | CPT/HCPCS: 93225; 93226 ==

== ENCOUNTER 2023-10-06 13:31 | Inpatient (IN) | payer MEDICARE, SELFPAY ==
[2023-10-06 13:32] VITALS: BP 183/85; PULSE 59; RESP 16; TEMP 36.8; O2SAT 99; BMI 20.7
[2023-10-06] MEDS: Morphine 4 MG/ML Syringe IM (14:38)
--- NOTE | 2023-10-06 15:08 | EX.ED.DYSGE1 ---
HPI History of Present Illness Chief Complaint: Headache Informant: patient and family Narrative Narrative: Patient have an episode of right-sided head pain. This has happened before and it is the same pain. It started gradually today, this episode. This has been going on for couple months. Recently saw Dr. Valdovinos with orthopedics, was diagnosed with spinal stenosis of the cervical spine, and family and patient's state that he thinks this pain is coming from his spinal stenosis. He states turning his neck/head in certain ways makes the pain worse and otherwise makes it better. He denies any other new symptoms at all including vision changes, lateral neck pain, focal neurologic symptoms or deficits. No recent injury. [facility] Medical History Carotid stenosis Dizziness GERD (gastroesophageal reflux disease) Hypertension Hypertension Home Medications ?Medication ?Instructions ?Recorded ?Last Taken ?Type atenolol 25 mg tablet 25 mg PO DAILY HTN 09/27/23 10/06/23 History atorvastatin 10 mg tablet 10 mg PO DAILY HIGH CHOLESTEROL 09/27/23 09/27/23 History valsartan 80 mg tablet 80 mg PO BID HTN 09/27/23 10/06/23 History hydrochlorothiazide 12.5 mg tablet 12.5 mg PO QDAY 10/06/23 10/06/23 History hydroxychloroquine 200 mg tablet 200 mg PO BID 10/06/23 Unknown History meclizine 25 mg tablet 25 mg PO TID PRN dizziness 10/06/23 10/06/23 History Allergy/AdvReac Type Severity Reaction Status Date / Time lorazepam AdvReac Intermediate Other Verified 10/06/23 15:21 Family History Father Cancer Prostate CA Mother Hypertension Myocardial infarction at 73 of HI and pulmonary HTN Surgical History H/O carpal tunnel repair Rotator cuff tear, left lumbarectomy Social History household members: none Smoking Status: Former smoker how long ago did patient quit smokin years ago alcohol intake: never substance use type: does not use what type of physical activity do you participate in: walking frequency: 5-6 times per week duration: 45-60 minutes/day seatbelt use: always ROS ROS ED Constitutional Constitutional ED: Denies chills or fever(s) Eyes Eyes: Denies blurry vision, change in vision or diplopia ENT ENT ED: Denies ear pain or sore throat Cardiovascular Cardiovascular: Denies chest pain or palpitations Respiratory/Chest Respiratory/Chest: Denies cough or dyspnea Gastrointestinal Gastrointestinal: Reports nausea; Denies abdominal pain, diarrhea or vomiting Genitourinary Genitourinary ED: Denies dysuria or urinary frequency Musculoskeletal Musculoskeletal: Denies back pain or myalgias Integumentary Denies abscess or rash Neurologic Neurologic: Reports headache(s); Denies paresthesias or weakness EXAM Physical Exam Const Vital Signs: 10/06/23 13:32 10/06/23 15:32 10/06/23 17:00 Temperature 98.2 F Temperature Source Temporal Pulse Rate 59 L 87 73 Respiratory Rate 16 16 16 Blood Pressure 183/85 H 170/84 H 184/100 H Blood Pressure Mean 117 112 128 Pulse Ox 99 97 98 Oxygen Delivery Method Room Air Room Air Room Air Positive well nourished and well developed Constitutional Narrative: No distress. Moaning in pain. General Appearance ED: well developed and NAD HEENT Reports normocephalic and moist mucous membranes HEENT Narrative: No temporal artery tenderness. His headache is more posterior to this in the temporal scalp above the ear, there is no superficial tenderness or reproducible tenderness, there is no hematoma or signs of trauma or rash. No mastoid tenderness or swelling or erythema. External ears normal. atraumatic; Negative for tenderness Eyes PERRL, EOMs intact bilaterally and conjunctivae normal Eyes Narrative: No photophobia Neck no lymphadenopathy, supple and no meningeal signs Neck Narrative: Can turn his head in both directions, and certain motions he increases his pain in the right temporal scalp/head. Resp normal respiratory effort and clear to auscultation bilaterally GI non-tender and non-distended Palpation: soft Extremity normal to inspection and full ROM Neuro oriented x3 and CN's II-XII intact bilaterally Sensorium / Orientation: awake and alert Speech: speech normal Gait (Neuro): normal gait Motor Exam: strength 5/5 throughout Psych mental status grossly normal Skin Lesions: no lesions Rashes: no rashes MDM MDM MDM Narrative Medical decision making narrative: Patient states he has been in the ER for this 5 different times. I looked at some of those visits. He had significant workups, they did not show anything acute. He is looking for pain relief I asked him what worked before, he and family have no idea. I asked if they are trying anything at home he says Tylenol, and when asked why he is not trying anything stronger or prescription, one of the family member states that 1 of those medications made him very confused and so they discontinued giving them to him which I think makes sense. Looking back here I am not able to easily discern what medications really helped him so I gave him an injection of morphine and observed. This did not help his pain. He was given Dilaudid 0.5 mg, this helped a little but he was still fairly miserable and in discomfort. He was given Zofran for his nausea, and given his mild hypokalemia and dehydration likely due to not eating lately, he was given IV fluids and some oral potassium. Spoke with multiple family members. They state he has had a major decline in the past 3 weeks, especially functionally and they are concerned because he lives alone and they believe he is having trouble caring for himself and no one can stay with him 08/11. I discussed with Dr. Gregory, he states if the patient needs to be admitted for rehab or help with ADLs, that would not necessarily change his plan with regards to his cervical myelopathy, which he thinks is related to his pain. He needs to try therapy for 1-2 months, and if he fails that then he would consider surgery. Family understands that if we admit him for PT/OT evaluations, that does not guarantee that he will qualify for rehab which is what they are requesting. Discussed with hospitalist for evaluation and inpatient observation, I did attempt to have PT and OT see the patient down in the ED, however they are already gone from the inpatient side today. History & Record Review Discussion w/independent historian: Patient and Family (x4) Lab Data Attestation: I reviewed the patient's lab results. Labs: Laboratory Results - last 24 hr 10/06/23 16:50 WBC 11.2 H RBC 4.81 Hgb 15.3 Hct 43.6 MCV 90.6 MCH 31.8 MCHC 35.1 RDW Std Deviation 40.1 RDW Coeff of Lynne 12.1 Plt Count 248 MPV 9.6 Immature Gran % (Auto) 0.900 Neut % (Auto) 79.6 H Lymph % (Auto) 10.4 L [place] % (Auto) 8.5 Eos % (Auto) 0.2 Baso % (Auto) 0.4 Absolute Neuts (auto) 8.9 H Absolute Lymphs (auto) 1.16 Nucleated RBC % 0 Sodium 134 L Potassium 3.2 L Chloride 92 L Carbon Dioxide 31.0 Anion Gap 11 BUN 23 H Creatinine 0.76 Estim Creat Clear Calc 72.27 Est GFR (MDRD) Af Amer 126 Est GFR (MDRD) Non-Af 104 BUN/Creatinine Ratio 30.3 H Glucose 115 H Calcium 9.8 Management Discussion w/another healthcare provider: Hospitalist and [facility] (Dr. Valdovinos spine) Discharge Plan Dx/Rx/DC Orders Clinical Impression: Cervical myelopathy, Intractable pain Disposition Disposition: Acute Care [facility]
[2023-10-06 15:32] VITALS: BP 170/84; PULSE 87; RESP 16; O2SAT 97
[2023-10-06] MEDS: Metoclopramide 10 MG/2 ML Vial 2.5 MG IV (15:46)
[2023-10-06] MEDS: HYDROmorphone 0.5 MG/0.5 ML SYRINGE IV (15:47)
[2023-10-06 16:56] LABS: Absolute Lymphocyte Count 1.16 X10^3/uL (0.83-4.51); Absolute Neutrophil Count 8.9 X10^3/uL (2.0-7.7); Basophil# 0.04 X10^3/uL; Basophil% 0.4 % (0-1); Eosinophil# 0.02 X10^3/uL; Eosinophils% 0.2 % (0-5); Hematocrit 43.6 % (40-54); Hemoglobin 15.3 g/dL (13.0-16.5); Lymphocyte # 1.16 X10^3/ul (0.83-4.51); Lymphocyte % 10.4 % (19-41); Mean Corp Hgb Conc 35.1 g/dL (32-36); Mean Corpuscular Hgb 31.8 pg (27.0-32.0); Mean Corpuscular Volume 90.6 fL (80-94); Mean Platelet Vol. 9.6 fl (6.2-12.0); Monocyte# 0.95 X10^3/uL; Monocyte% 8.5 % (0-10); NRBC Flagged by Analyzer 0 % (0-5); Neutrophil % 79.6 % (47-70); Platelet Count 248 K/mm3 (150-450); RBC Distribution Width CV 12.1 % (11.6-14.6); RBC Distribution Width SD 40.1 fl (35.1-43.9); Red Blood Count 4.81 M/mm3 (4.6-6.2); White Blood Count 11.2 K/mm3 (4.4-11.0)
[2023-10-06 17:00] VITALS: BP 184/100; PULSE 73; RESP 16; O2SAT 98
[2023-10-06 17:12] LABS: Anion Gap 11 (5-15); BUN 23 mg/dL (7-18); BUN/Creat Ratio 30.3 RATIO (10-20); Calcium,Total 9.8 mg/dL (8.5-10.1); Chloride 92 mmol/L (98-107); Creatinine, Serum 0.76 mg/dL (0.70-1.30); EST Glomerular Filtration Rate 104 mL/min (>60); Est Glom Filt Rate - Afr Amer 126 mL/min (>60); Estimated Creatinine Clearance 72.27 ml/min; Glucose 115 mg/dL (74-106); Potassium 3.2 mmol/L (3.5-5.1); Sodium Level 134 mmol/L (136-145)
[2023-10-06] MEDS: 0.9% Normal Saline (1000mL) 1,000 ML 100 ML IV (17:29)
[2023-10-06] MEDS: Potassium Chloride Oral Tablet 20 MEQ PO (17:29)
[2023-10-06 18:58] VITALS: BP 176/83; PULSE 73; RESP 16; TEMP 36.3; O2SAT 98
--- NOTE | 2023-10-06 19:02 | PCM.HP.STD ---
[facility] - General General Date of Admission: 10/06/23 Date of Service: 10/06/23 Chief Complaint: Headache and chronic neck pain but getting worse for last 3-4 weeks HPI Narrative LIA GALLEGOS, is a 83 M who has a history of chronic neck back and for many years, more than 20 years but lately for the last 5 weeks it has been getting progressively worse without any known precipitating event or fall or injury. But to Dr. Nithin Valdovinos, he said he swung sledge hammer onto concrete about 3 weeks ago on that made his neck pain worse. He is taking Tylenol and ibuprofen for pain. But for last 3 weeks his pain is so terrible that he is not able to rest, do his activities of daily living or even take care of himself. Had 6 ED visits. He was also admitted for 1 day on September 27, 2023 for acute strain of neck muscle and dizziness. Patient states he gets frequent dizziness lightheadedness, vertigo. His pain is mostly on the neck and goes cranially to right side of neck and temporal region. Complain of pain 10/10 intensity, severe, could not rest, increased pain laying down. He denies radiating pain to upper extremity, numbness or tingling or other associated symptoms. Denies shooting pain down to thoracic or lumbar spine or lower extremities. He also saw Dr. Gregory in the office today for patient had MRI last week Patient also noticed difficulty in balance and unsteady gait. He did not had difficulty in walking before continues to walk 4 miles. He has difficulty holding a pen or writing and feels like he is dropping objects. He lost about 10 pounds in the last 5 weeks. Patient is admitted because he could not take himself because of pain [facility] Medical History Carotid stenosis Dizziness GERD (gastroesophageal reflux disease) Hypertension Hypertension Home Medications ?Medication ?Instructions ?Recorded ?Last Taken ?Type atenolol 25 mg tablet 25 mg PO DAILY HTN 09/27/23 10/06/23 History atorvastatin 10 mg tablet 10 mg PO DAILY HIGH CHOLESTEROL 09/27/23 09/27/23 History valsartan 80 mg tablet 80 mg PO BID HTN 09/27/23 10/06/23 History hydrochlorothiazide 12.5 mg tablet 12.5 mg PO QDAY 10/06/23 10/06/23 History hydroxychloroquine 200 mg tablet 200 mg PO BID 10/06/23 Unknown History meclizine 25 mg tablet 25 mg PO TID PRN dizziness 10/06/23 10/06/23 History Allergy/AdvReac Type Severity Reaction Status Date / Time lorazepam AdvReac Intermediate Other Verified 10/06/23 15:21 Family History Father Cancer Prostate CA Mother Hypertension Myocardial infarction at 73 of [place] and pulmonary HTN Surgical History H/O carpal tunnel repair Rotator cuff tear, left lumbarectomy Social History household members: none Smoking Status: Former smoker how long ago did patient quit smokin years ago alcohol intake: never substance use type: does not use what type of physical activity do you participate in: walking frequency: 5-6 times per week duration: 45-60 minutes/day seatbelt use: always ROS ROS Narrative Constitutional: Reports chronic fatigue and weakness. No fever. Loss of appetite HEENT: Reports systems reviewed and no addt'l complaints, except as documented Respiratory/Chest: No acute shortness of breath or respiratory distress or wheezing. CVS: No chest pain pressure or tightness Gastrointestinal: Denies coffee ground emesis, hematemesis or vomiting Genitourinary: Denies burning urination or new urinary tract symptoms Musculoskeletal: Neck pain and headache as described in HPI. No acute injury Neurologic: Denies seizure-like symptoms. Headache skin: No ulcer. No rash Endocrinology: Reports systems reviewed and no addt'l complaints, except as documented Hematologic/Lymphatic: Reports systems reviewed and no addt'l complaints, except as documented Rest 14 ROS are negative except as mentioned in HPI Vital Signs Vital Signs Vital Signs: 10/06/23 13:32 10/06/23 15:32 10/06/23 17:00 Temperature 98.2 F Temperature Source Temporal Pulse Rate 59 L 87 73 Respiratory Rate 16 16 16 Blood Pressure 183/85 H 170/84 H 184/100 H Blood Pressure Mean 117 112 128 Pulse Ox 99 97 98 Oxygen Delivery Method Room Air Room Air Room Air 10/06/23 18:58 Temperature 97.4 F L Temperature Source Pulse Rate 73 Respiratory Rate 16 Blood Pressure 176/83 H Blood Pressure Mean 114 Pulse Ox 98 Oxygen Delivery Method Weight Weight: 161 lb Body Mass Index (BMI) 20.7 Physical Exam Narrative General: Alert, Oriented x3, Cooperative HEENT: Atraumatic, PERRLA, EOMI, Normocephalic Oral: Oral mucosa moist. No Gingival or Mucosal Lesions/ Ulcerations Neck: Tenderness present on the right side of cervical paraspinal muscles. Tenderness in the right side of head and neck, temporal region. Supple, No JVD, Negative Carotid Bruits Chest wall/Lungs: Air entry diminished in bilateral lung bases. No crepitation/rhonchi Cardiovascular: Regular rate, Regular Rhythm, Normal S1, Normal S2, No M/G/R Abdomen: Bowel Sounds Present, Soft, Non Tender, Non-Distended : No dysuria. No renal angle tenderness. No suprapubic tenderness. Extremities: No edema, Capillary Refill Less than 3 Seconds Skin: No rashes, No breakdown Musculoskeletal: No Tenderness to Palpation of Joints or Extremities Neurological: Cranial nerves II-XII grossly intact, DTR 2+/4. No acute focal neurological deficit. No focal muscle deficit. Gait was not tested Psych/Mental Status: Flat affect. Results Lab / Micro Data 10/06/23 16:50 10/06/23 16:50 Labs: Laboratory Results - last 24 hr 10/06/23 16:50: WBC 11.2 H, RBC 4.81, Hgb 15.3, Hct 43.6, MCV 90.6, MCH 31.8, MCHC 35.1, RDW Std Deviation 40.1, RDW Coeff of Lynne 12.1, Plt Count 248, MPV 9.6, Immature Gran % (Auto) 0.900, Neut % (Auto) 79.6 H, Lymph % (Auto) 10.4 L, [place] % (Auto) 8.5, Eos % (Auto) 0.2, Baso % (Auto) 0.4, Absolute Neuts (auto) 8.9 H, Absolute Lymphs (auto) 1.16, Nucleated RBC % 0, Sodium 134 L, Potassium 3.2 L, Chloride 92 L, Carbon Dioxide 31.0, Anion Gap 11, BUN 23 H, Creatinine 0.76, Estim Creat Clear Calc 72.27, Est GFR (MDRD) Af Amer 126, Est GFR (MDRD) Non-Af 104, BUN/Creatinine Ratio 30.3 H, Glucose 115 H, Calcium 9.8 Assessment & Plan Assessment/Plan (1) Cervical myelopathy: (2) Neck pain: PLAN: Plan This is a 83-year-old gentleman came to ED for severe acute pain with debility, not able to take care of himself. 1. Acute debility due to severe right-sided neck pain and headache, inability to ADL/failure to thrive: Patient is being admitted to the floor. Lost about 10 pounds in 5 weeks. Patient had MRI of the brain and cervical spine on September 27, 2023. It shows mild multilevel degenerative disc disease with mild posterior disc bulge and osteophyte complexes. No anterior or posterior subluxation. Brain MRI reported no evidence of acute infarct or enhancing intracranial mass. Patient is started on Mobic 7.5 mg daily, Tylenol and oxycodone for pain control. PT and OT ordered. Tizanidine 2 mg every 8 hourly as needed for muscle spasms. Spine surgeon Dr. Gregory is consulted 2. Hypertension, uncontrolled: Patient blood pressure is high. 183/85. It was also high during previous ED visits. Patient home medications HCTZ, valsartan and atenolol continued with first dose today. Hydralazine 10 mg IV every 4 hourly as needed for SBP more than 180 mmHg. Labetalol 20 mg IV 1 dose ordered in the ED. 3. Dizziness, unsteady gait: Patient denies any fall. 4. GERD: Controlled. PPI ordered 5. Mild hypokalemia potassium replaced. Serum magnesium ordered DVT prophylaxis: Enoxaparin 40 mill subcu daily ordered. Living will/advanced directive/end of life care: Patient does have living will or advanced directive. Patient's daughter Jourdan is power of ip technology transactions attorney for health. His [id number] present in the ED. After discussion of benefits/risks procedures involved with full code, DNR CC arrest and DNR CC, the patient opted for full code. Patient does want artificial life support including intubation, tube feed, ventilator and/chest compression, central venous catheter, vasopressor and DC shock if needed Total time spent in [id number] encounter in discussion of advanced directive 17 minutes. Laboratory Results 10/06/23 16:50: WBC 11.2 H, RBC 4.81, Hgb 15.3, Hct 43.6, MCV 90.6, MCH 31.8, MCHC 35.1, RDW Std Deviation 40.1, RDW Coeff of Lynne 12.1, Plt Count 248, MPV 9.6, Immature Gran % (Auto) 0.900, Neut % (Auto) 79.6 H, Lymph % (Auto) 10.4 L, [place] % (Auto) 8.5, Eos % (Auto) 0.2, Baso % (Auto) 0.4, Absolute Neuts (auto) 8.9 H, Absolute Lymphs (auto) 1.16, Nucleated RBC % 0 Sodium 134 L, Potassium 3.2 L, Chloride 92 L, Carbon Dioxide 31.0, Anion Gap 11, BUN 23 H, Creatinine 0.76, Estim Creat Clear Calc 72.27, Est GFR (MDRD) Af Amer 126, Est GFR (MDRD) Non-Af 104, BUN/Creatinine Ratio 30.3 H, Glucose 115 H, Calcium 9.8 Charges/Coding Visit Charges Inpatient E&M: 84475 Init Hosp L3 Procedures Hospitalists Procedures: 40347 Advncd Care Plan 30 Min
[2023-10-06] MEDS: Labetalol (Compound) 20 MG/4 ML SYRINGE IV (19:16)
[2023-10-06 19:25] LABS: Magnesium 2.2 mg/dL (1.6-2.6)
[2023-10-06 19:43] VITALS: BP 117/52
[2023-10-06 19:59] VITALS: BMI 20.5
[2023-10-06] MEDS: Hydroxychloroquine 200 MG Tablet PO (20:13)
[2023-10-06] MEDS: Meloxicam 7.5 MG Tablet PO (20:13)
[2023-10-06] MEDS: Losartan Potassium 25 MG Tablet PO (20:13)
[2023-10-06] MEDS: Atenolol 25 MG Tablet PO (20:13)
[2023-10-06] MEDS: Senna/Docusate Sodium 1 Tablet 2 TABLET PO (20:13)
[2023-10-06 20:15] VITALS: BP 162/75; PULSE 76; RESP 18; TEMP 36.8; O2SAT 99
[2023-10-06] MEDS: 0.9% Saline Lock 10 ML Syringe IV (21:06)
[2023-10-06] MEDS: Ondansetron 4 MG/2 ML Vial IV (21:06)
--- NOTE | 2023-10-07 00:45 | NURSING ---
Pt found to be groaning and restless in bed. Will not respond to staff, keeps grasping head and groaning. Dr. Samaniego notified of patient's mentation changes.
[2023-10-07 00:46] VITALS: BP 137/86; PULSE 73; RESP 16; TEMP 36.4; O2SAT 100
--- NOTE | 2023-10-07 01:06 | CT_ITS ---
INDICATION: AMS EXAMINATION: CT BRAIN WITHOUT CONTRAST, CTA HEAD, AND CTA NECK TECHNIQUE: Noncontrast axial images were obtained of the brain. Subsequently, routine carotid CT angiogram protocol was performed without and with IV contrast. In addition, images were obtained of the [place] of [place]. NASCET criteria using the distal ICAs for comparison were used for evaluation of stenoses. 3D reconstructions were reviewed. The protocol utilizes one or more of the following dose reduction techniques: automated exposure control, adjustment of mA and/or kV according to patient size,and/or use of iterative reconstruction technique. IV Contrast dosage and agent: IV 100mL [id number]-370 COMPARISON: No relevant prior comparison study available FINDINGS: --CT BRAIN WITHOUT CONTRAST: BRAIN PARENCHYMA: No intra- or extra-axial hemorrhage. No evidence of acute infarct. No intracranial mass or mass effect. There is preservation of the [place]/white matter interface. Posterior fossa structures are unremarkable. CSF SPACES: Appropriate for age. No hydrocephalus. Basal cisterns are patent. CALVARIUM, SKULL BASE, PARANASAL SINUSES AND MASTOID AIR CELLS: Clear. No discrete lytic or blastic abnormalities. ASPECTS Score for Acute Strokes: 10 --CTA NECK: AORTIC ARCH AND BRANCHES: Normal anatomy, patent. RIGHT CCA: No occlusion, significant stenosis or dissection. RIGHT ICA: Mild atherosclerosis at the carotid bulb. No occlusion, significant stenosis or dissection. LEFT CCA: No occlusion, significant stenosis or dissection. LEFT ICA: Mild atherosclerosis at the carotid bulb. No occlusion, significant stenosis or dissection. RIGHT VERTEBRAL ARTERY: Mild atherosclerosis at the origin. No occlusion, significant stenosis or dissection. LEFT VERTEBRAL ARTERY: Mild atherosclerosis at the origin. No occlusion, significant stenosis or dissection. NECK SOFT TISSUES: Unremarkable. --CTA HEAD: --Anterior circulation: Extensive motion artifacts. ICAs: No significant stenosis at the intracranial/visualized segments. ACAs: No significant stenosis at the visualized segments. ACOM: Present. MCAs: No significant stenosis at the visualized segments. --Posterior circulation: Extensive motion artifacts. shipper/receiver: No significant stenosis at the visualized segments. BASILAR ARTERY: No significant stenosis. VERTEBRAL ARTERIES: No significant stenosis at the intradural/visualized segments. No evidence of intracranial aneurysm or vascular malformation. CT/CTA Head AND Neck W/ Contrast IMPRESSION: No significant stenosis of the cervical arteries. There is no evidence of large intracranial vessel occlusion. Electronically Signed: Tania Bolaños MD at 3:04 EDT ,
[2023-10-07] MEDS: dexAMETHasone 10 MG/ML Vial 6 MG IV (01:32)
[2023-10-07] MEDS: Ketorolac 15 MG/ML Vial IV (03:47)
[2023-10-07] MEDS: 0.9% Saline Lock 10 ML Syringe IV (03:47)
[2023-10-07 03:56] VITALS: BP 155/64; PULSE 80; RESP 18; TEMP 36.8; O2SAT 100
[2023-10-07 07:39] LABS: Absolute Lymphocyte Count 0.24 X10^3/uL (0.83-4.51); Absolute Neutrophil Count 13.3 X10^3/uL (2.0-7.7); Basophil# 0.02 X10^3/uL; Basophil% 0.1 % (0-1); Hematocrit 39.6 % (40-54); Hemoglobin 14.2 g/dL (13.0-16.5); Lymphocyte # 0.24 X10^3/ul (0.83-4.51); Lymphocyte % 1.7 % (19-41); Mean Corp Hgb Conc 35.9 g/dL (32-36); Mean Corpuscular Hgb 31.8 pg (27.0-32.0); Mean Corpuscular Volume 88.8 fL (80-94); Mean Platelet Vol. 9.3 fl (6.2-12.0); Monocyte# 0.17 X10^3/uL; Monocyte% 1.2 % (0-10); NRBC Flagged by Analyzer 0 % (0-5); Neutrophil # 13.27 X10^3/uL (2.7-7.7); Neutrophil % 96.2 % (47-70); POSITIVE DIFFERENTIAL YES; Platelet Count 247 K/mm3 (150-450); RBC Distribution Width CV 11.7 % (11.6-14.6); RBC Distribution Width SD 37.1 fl (35.1-43.9); Red Blood Count 4.46 M/mm3 (4.6-6.2); White Blood Count 13.8 K/mm3 (4.4-11.0)
[2023-10-07 07:42] VITALS: O2SAT 96
[2023-10-07 08:09] LABS: Anion Gap 10 (5-15); BUN 19 mg/dL (7-18); BUN/Creat Ratio 23.9 RATIO (10-20); Calcium,Total 8.9 mg/dL (8.5-10.1); Chloride 93 mmol/L (98-107); EST Glomerular Filtration Rate 99 mL/min (>60); Est Glom Filt Rate - Afr Amer 119 mL/min (>60); Estimated Creatinine Clearance 69.96 ml/min; Glucose 160 mg/dL (74-106); Potassium 3.3 mmol/L (3.5-5.1); Sodium Level 128 mmol/L (136-145)
[2023-10-07 10:00] VITALS: BP 134/82; PULSE 82; RESP 18; TEMP 36.6; O2SAT 98
--- NOTE | 2023-10-07 11:40 | CASEMGMT ---
RN CM Assessment Face to Face with patient for initial transition planning/care coordination assessment. Pt is currently sleeping and not fully oriented. Pt daughter (Navya) at bedside and willing to answer this RN CM questions for assessment. Care providers, pharmacy, and demographics verified. Admitting dx: Cervical Pain/ Spinal Stenosis PCP: Dalia Coley Specialists: Dr. Valdovinos (Ortho) Preferred Pharmacy: [facility] Insurance: [employer] Prescription Benefit: Yes LNOK: Divya Hammer (Daughter), Navya Blackmon (Daughter) Living Arrangements: Pt lives alone in a single story home with one step to enter with a handrail ADLs/IADLs: Independent at Baseline. Currently requiring assistance Transportation: Pt recently stopped driving. Pt daughters drive him DME: Cane, Shower chair. Pt daughter states that the pt would like a FWW. HHC/SNF: Denies history. Hx at OP Tx in [facility] Plan: 6-Click score is 16. PT eval is pending. Pt daughter states that the pt will need SNF placement to return to [facility]. SW to provide list and to follow to ensure a safe DC plan moving forward. Shekhar Lugo RN CM
--- NOTE | 2023-10-07 12:30 | CASEMGMT ---
RN CM notified SW 6 clicks = 16 and family would like pt to go to SNF and would like a list of facilities in network. Will follow therapy notes for recommendation.
--- NOTE | 2023-10-07 13:39 | CASEMGMT ---
Discharge Planning A list of SNF providers including quality and resource use data and consistent with the patient's preferred geographic region, medical needs, and insurance network was created.? This list was provided to the SW. Toshia Salas Discharge Planning Asst.
--- NOTE | 2023-10-07 14:14 | PN.HOSP_ITS ---
Subjective Subjective Altered and delirious, family does not believe there is a history of dementia Objective Data Objective Data Vital Signs: Vital Signs Temp Pulse Resp BP Pulse Ox O2 Del Method 97.9 F 82 18 134/82 H 98 Room Air 10/07/23 10:00 10/07/23 10:00 10/07/23 10:00 10/07/23 10:00 10/07/23 10:00 10/07/23 10:00 Oxygen Delivery Method Room Air Weight: 155 lb 13.869 oz Body Mass Index (BMI) 20.5 Intake & Output: Intake and Output for Last 24 Hours 10/06/23 10/07/23 10/08/23 03:59 03:59 03:59 Intake Total 436 / 436 Output Total 75 / 75 Balance 361 / 361 Lab / Micro Data 10/07/23 07:10 10/07/23 07:10 Labs: Laboratory Results - last 24 hr 10/06/23 16:50: WBC 11.2 H, RBC 4.81, Hgb 15.3, Hct 43.6, MCV 90.6, MCH 31.8, MCHC 35.1, RDW Std Deviation 40.1, RDW Coeff of Lynne 12.1, Plt Count 248, MPV 9.6, Immature Gran % (Auto) 0.900, Neut % (Auto) 79.6 H, Lymph % (Auto) 10.4 L, [place] % (Auto) 8.5, Eos % (Auto) 0.2, Baso % (Auto) 0.4, Absolute Neuts (auto) 8.9 H, Absolute Lymphs (auto) 1.16, Nucleated RBC % 0, Sodium 134 L, Potassium 3.2 L, Chloride 92 L, Carbon Dioxide 31.0, Anion Gap 11, BUN 23 H, Creatinine 0.76, Estim Creat Clear Calc 72.27, Est GFR (MDRD) Af Amer 126, Est GFR (MDRD) Non-Af 104, BUN/Creatinine Ratio 30.3 H, Glucose 115 H, Calcium 9.8, Magnesium 2.2 10/07/23 07:10: WBC 13.8 H, RBC 4.46 L, Hgb 14.2, Hct 39.6 L, MCV 88.8, MCH 31.8, MCHC 35.9, RDW Std Deviation 37.1, RDW Coeff of Lynne 11.7, Plt Count 247, MPV 9.3, Immature Gran % (Auto) 0.800, Neut % (Auto) 96.2 H, Lymph % (Auto) 1.7 L, [place] % (Auto) 1.2, Eos % (Auto) 0.0, Baso % (Auto) 0.1, Absolute Neuts (auto) 13.3 H, Absolute Lymphs (auto) 0.24 L, Nucleated RBC % 0, Sodium 128 L, P otassium 3.3 L, Chloride 93 L, Carbon Dioxide 25.0, Anion Gap 10, BUN 19 H, Creatinine 0.80, Estim Creat Clear Calc 69.96, Est GFR (MDRD) Af Amer 119, Est GFR (MDRD) Non-Af 99, BUN/Creatinine Ratio 23.9 H, Glucose 160 H, Calcium 8.9 Radiography Diagnostic Testing: Radiology Impression Head/Neck CTA 10/07/23 01:06 IMPRESSION: No significant stenosis of the cervical arteries. There is no evidence of large intracranial vessel occlusion. Electronically Signed: Tania Bolaños MD at 3:04 EDT , Physical Exam Narrative General: Does not open his eyes and is not cooperative does not interact HEENT: Atraumatic, normocephalic Oral: Moist Mucosa Neck: Supple, No JVD Lungs: Diminished, Normal air movement, No rhonchi, No wheeze, No rales Cardiovascular: Regular rate, Regular Rhythm, Normal S1, Normal S2, No murmurs Abdomen: Soft, Non Tender, Non-Distended, No Hepato-splenomegaly Extremities: No edema, Capillary Refill Less than 3 Seconds Skin: No rashes, No breakdown Musculoskeletal: No Tenderness to Palpation of Joints or Extremities Neurological: Does not follow commands but moves all extremities Psych/Mental Status: Flat Assessment & Plan Assessment/Plan (1) Cervical myelopathy: (2) Neck pain: PLAN: Plan 1. Acute debility secondary to right-sided neck pain ? He had seen spine surgery as an outpatient with an MRI of his cervical spine as well as his brain, no strokes ? There is canal stenosis and orthospine requested physical therapy prior to the possibility of surgery however he was admitted due to significant pain and inability to complete ADLs ? Currently altered and his behaviors according to family is not normal ? He does have a leukocytosis of 13.8, will obtain a urinalysis ? He is not hypoxic and does not have a cough during my evaluation today indicated concern for pneumonia ? PT/OT 2. Essential HTN/HLD ? Blood pressures are stable ? Can resume his home blood pressure medications ? We will monitor make adjustments as necessary DVT: Johannanox Charges/Coding Visit Charges Inpatient E&M: 63995 Subs Hosp L2
[2023-10-07 14:31] LABS: Bacteria 0 SEEN /hpf (None Seen); Squamous Epithelial Cells - UA 0 SEEN /hpf (0-5); White Blood Cells 0 SEEN /hpf (0-5)
[2023-10-07 14:33] LABS: Color, Urine Yellow (Yellow); Glucose, Dipstick Normal (Normal); Ketone-Dipstick 15 mg/dl (Negative); Leukocyte Esterase-Dipstick Negative /ul (Negative); Nitrite-Dipstick Negative (Negative); Occult Blood-Urine 50 /ul (Negative); Protein-Dipstick 30 mg/dl (Negative); Specific Gravity, Urine 1.015 (1.002-1.030); Urine Bilirubin Dipstick Negative (Negative); Urine Clarity Clear (Clear); Urine Urobilinogen 1 mg/dl (Normal)
[2023-10-07 14:41] LABS: Mucous, Urine 1+ /hpf (<or=2+); Red Blood Cells-Urine 0-5 SEEN /hpf (0-5)
[2023-10-07 16:00] VITALS: BP 125/64; PULSE 77; RESP 16; TEMP 37; O2SAT 98
--- NOTE | 2023-10-07 16:18 | CASEMGMT ---
Addendum entered by Gayla Maddox 10/07/23 16:40: Patient was unable to complete SDOH evaluation due to being lethargic. Original Note: Social Work SW met with patient, daughter, Divya, and other family members at bedside to provide SNF list and address concerns. Patient was lethargic; unable to complete assessment due to sleeping. Patient's daughter expressed concerns for patient mentation at this time. Divya informed SW that the patient is normally A&Ox4; ambulatory and independent to complete care. Family assist with providing transportation to doctor appointments. Per family, the patient was rehabbing a home over the past 3 weeks. Divya informed SW that the patient has been lethargic all day. Divya informed SW that the patient had neurology consulted due to concerns for mentation change; no stroke. Divya informed SW that the patient was supposed to discharge to a nursing facility due to pain and spinal stenosis. Patient's family informed SW that the patient discontinued taking home meds for heart and BP within the past 4 weeks. Family expressed concerns for patient presentation. SW encouraged family to discuss concerns with Physician Attending to address potential concerns. SW provided SNF list to family. Patient's daughter informed SW that patient's POA is currently out of town in [place]; plan to return next Tuesday. SW informed daughter that the patient will likely require choice for placement within next few days. Family will be reviewing list to provide choice. Discharge plan: SNF placement. KAREN Purcell
--- NOTE | 2023-10-07 17:43 | NURSING ---
pt refusing to take medications, verbally will only answer with yes or no if at all.
[2023-10-07 20:07] VITALS: BP 111/57; PULSE 68; RESP 16; TEMP 36.6; O2SAT 96
[2023-10-07] MEDS: Hydroxychloroquine 200 MG Tablet PO (22:12)
[2023-10-07] MEDS: Senna/Docusate Sodium 1 Tablet 2 TABLET PO (22:12)
[2023-10-07] MEDS: Ensure Plus High Protein 120 ML LIQUID PO (22:12)
[2023-10-07] MEDS: Losartan Potassium 25 MG Tablet PO (22:12)
[2023-10-08 02:35] VITALS: BP 149/75; PULSE 72; RESP 16; TEMP 36.8; O2SAT 98
[2023-10-08 06:13] LABS: Absolute Lymphocyte Count 1.33 X10^3/uL (0.83-4.51); Absolute Neutrophil Count 12.2 X10^3/uL (2.0-7.7); Basophil# 0.03 X10^3/uL; Basophil% 0.2 % (0-1); Eosinophil# 0.01 X10^3/uL; Eosinophils% 0.1 % (0-5); Hemoglobin 14.3 g/dL (13.0-16.5); Lymphocyte # 1.33 X10^3/ul (0.83-4.51); Lymphocyte % 8.7 % (19-41); Mean Corp Hgb Conc 36.7 g/dL (32-36); Mean Corpuscular Hgb 32.9 pg (27.0-32.0); Mean Corpuscular Volume 89.7 fL (80-94); Mean Platelet Vol. 9.3 fl (6.2-12.0); Monocyte% 10.5 % (0-10); NRBC Flagged by Analyzer 0 % (0-5); Neutrophil # 12.17 X10^3/uL (2.7-7.7); Neutrophil % 79.9 % (47-70); POSITIVE DIFFERENTIAL YES; Platelet Count 245 K/mm3 (150-450); RBC Distribution Width CV 11.9 % (11.6-14.6); RBC Distribution Width SD 39.2 fl (35.1-43.9); Red Blood Count 4.35 M/mm3 (4.6-6.2); White Blood Count 15.2 K/mm3 (4.4-11.0)
[2023-10-08 06:30] LABS: Differential Indicated SCAN CRITERIA MET
[2023-10-08 06:57] LABS: Anion Gap 7 (5-15); BUN 34 mg/dL (7-18); Chloride 97 mmol/L (98-107); Creatinine, Serum 0.71 mg/dL (0.70-1.30); EST Glomerular Filtration Rate 113 mL/min (>60); Est Glom Filt Rate - Afr Amer 137 mL/min (>60); Estimated Creatinine Clearance 69.96 ml/min; Glucose 110 mg/dL (74-106); Potassium 3.2 mmol/L (3.5-5.1); Sodium Level 132 mmol/L (136-145)
[2023-10-08 07:05] LABS: Differential Comment SCANNED
[2023-10-08 09:47] VITALS: BP 114/59; PULSE 71; RESP 16; TEMP 36.6; O2SAT 95
[2023-10-08] MEDS: Senna/Docusate Sodium 1 Tablet 2 TABLET PO ×2 (09:53→22:11)
[2023-10-08] MEDS: Atenolol 25 MG Tablet PO (09:53)
[2023-10-08] MEDS: Meloxicam 7.5 MG Tablet PO (09:54)
[2023-10-08] MEDS: Enoxaparin 40 MG/0.4 ML Syringe SC (09:54)
[2023-10-08] MEDS: Hydroxychloroquine 200 MG Tablet PO ×2 (09:54→22:11)
[2023-10-08] MEDS: Pantoprazole Sodium 40 MG Tablet PO (09:54)
[2023-10-08] MEDS: Losartan Potassium 25 MG Tablet PO ×2 (10:12→22:11)
--- NOTE | 2023-10-08 10:24 | PCM.PN.HOSP ---
Subjective Subjective More alert today but white count is elevated. Unclear if this is an infectious etiology or due to the Decadron that he had x 1 earlier this morning Objective Data Objective Data Vital Signs: Vital Signs Temp Pulse Resp BP Pulse Ox O2 Del Method 97.8 F 71 16 114/59 L 95 Room Air 10/08/23 09:47 10/08/23 09:47 10/08/23 09:47 10/08/23 09:47 10/08/23 09:47 10/08/23 10:00 Oxygen Delivery Method Room Air Weight: 155 lb 13.869 oz Body Mass Index (BMI) 20.5 Intake & Output: Intake and Output for Last 24 Hours 10/07/23 10/08/23 10/09/23 03:59 03:59 03:59 Intake Total 436 / 436 200 / 200 60 / 60 Output Total 75 / 75 Balance 361 / 361 200 / 200 60 / 60 Medical Nutrition Assessment Dietitian: Malnutrition Criteria Met Start: 10/07/23 14:23 Freq: Status: Active Protocol: Document 10/07/23 14:23 SLA (Rec: 10/07/23 14:23 SLA [id number]) Nutrition Malnutrition Evidence of Malnutrition Exists Yes Malnutrition (severe): Acute Illness/Injury Evidenced By Suboptimal Energy Intake ( Severe),Weight Loss (Severe) Clinical Problem Acute Disease or Injury Related Malnutrition Etiology related to no appetite and inadequate energy intake Signs/Symptoms as evidenced by 11% unintended wt loss x 2 wks child psychologist and po intake < 75% of usual x > 5 days child psychologist. Status Active Problem Recommendation Dietitian Recommendations/Changes Will liberalize diet to Regular d/t signs and symptoms of malnutrition Will change ensure compact to ensure plus high protein w/ medpass for increased todd/pro per serving. Rec consider appetite stimulant to help increase po intake. Lab / Micro Data 10/08/23 05:55 10/08/23 05:55 Labs: Laboratory Results - last 24 hr 10/07/23 14:20: Urine Color Yellow, Urine Clarity Clear, Urine pH 6.0, Ur Specific [place] 1.015, Urine Protein 30 H, Urine Glucose (UA) Normal, Urine Ketones 15 H, Urine Occult Blood 50 H, Urine Nitrite Negative, Urine Bilirubin Negative, Urine Urobilinogen 1 H, Ur Leukocyte Esterase Negative, Urine RBC 0-5 SEEN, Urine WBC 0 SEEN, Ur Squamous Epith Cells 0 SEEN, Urine Bacteria 0 SEEN, Urine Mucus 1+ 10/08/23 05:55: WBC 15.2 H, RBC 4.35 L, Hgb 14.3, Hct 39.0 L, MCV 89.7, MCH 32.9 H, MCHC 36.7 H, RDW Std Deviation 39.2, RDW Coeff of Lynne 11.9, Plt Count 245, MPV 9.3, Immature Gran % (Auto) 0.600, Neut % (Auto) 79.9 H, Lymph % (Auto) 8.7 L, [place] % (Auto) 10.5 H, Eos % (Auto) 0.1, Baso % (Auto) 0.2, Absolute Neuts (auto) 12.2 H, Absolute Lymphs (auto) 1.33, Nucleated RBC % 0, Differential Comment SCANNED, Diff Path Review August foll, Sodium 132 L, Potassium 3.2 L, Chloride 97 L, Carbon Dioxide 28.0, Anion Gap 7, BUN 34 H, Creatinine 0.71, Estim Creat Clear Calc 69.96, Est GFR (MDRD) Af Amer 137, Est GFR (MDRD) Non-Af 113, BUN/Creatinine Ratio 48.0 H, Glucose 110 H, Calcium 9.0 Physical Exam Narrative General: Alert, no acute distress, oriented x 3 HEENT: Atraumatic, normocephalic Oral: Moist Mucosa Neck: Supple, No JVD Lungs: Diminished, Normal air movement, No rhonchi, No wheeze, No rales Cardiovascular: Regular rate, Regular Rhythm, Normal S1, Normal S2, No murmurs Abdomen: Soft, Non Tender, Non-Distended, No Hepato-splenomegaly Extremities: No edema, Capillary Refill Less than 3 Seconds Skin: No rashes, No breakdown Musculoskeletal: No Tenderness to Palpation of Joints or Extremities Neurological: Does not follow commands but moves all extremities Psych/Mental Status: Flat Assessment & Plan Assessment/Plan (1) Cervical myelopathy: (2) Neck pain: PLAN: Plan 1. Acute debility secondary to right-sided neck pain ? He had seen spine surgery as an outpatient with an MRI of his cervical spine as well as his brain, no strokes ? There is canal stenosis and orthospine requested physical therapy prior to the possibility of surgery however he was admitted due to significant pain and inability to complete ADLs ?Unclear as to his altered [place], he still does not know why he is here in the hospital. Urinalysis was unremarkable given the continued climb in his white count, though confounded by the dose of Decadron this morning, will obtain blood cultures and chest x-ray ? PT/OT 2. Essential HTN/HLD ? Blood pressures are stable ? Can resume his home blood pressure medications ? We will monitor make adjustments as necessary DVT: Parth Charges/Coding Visit Charges Inpatient E&M: 33419 Subs Hosp L2
--- NOTE | 2023-10-08 13:57 | RAD_ITS ---
INDICATION: leukocytosis, unclear etiology EXAMINATION/TECHNIQUE: X-RAY - XR Chest 2 Views COMPARISON: May 11, 2023. FINDINGS: LINES/DEVICES: None. LUNGS: No consolidation, edema or effusion. No pneumothorax. MEDIASTINUM AND CARDIOVASCULAR STRUCTURES: Cardiac silhouette not enlarged. Aortic atherosclerosis and mild tortuosity. BONES AND SOFT TISSUES: Unremarkable. RAD/Chest PA and Lateral IMPRESSION: No radiographic evidence of acute cardiopulmonary disease. Electronically Signed: Dayron Marley MD at 23:25 EDT ,
--- NOTE | 2023-10-08 15:05 | CASEMGMT ---
Social Work Handoff received for possible SNF placement for patient. SDOH also needs to be completed, but patient unable to participate yesterday in screening questions. Spoke with patient's nurse who reports patient is better than yesterday, more oriented, but still does not remember what happened for patient to be at the hospital. Spoke with patient's [id number] Lizette today, who was in patient's room. Patient laying in bed with eyes closed, not participating in conversation. Lizette reports family has discussed and have determined short term SNF options: [facility], [facility], and [facility] (in that order). Let Lizette know social work does need to speak with patient 1:1 for some routine questions. Lizette reports though patient is doing better today, not quite sure patient is ready for questions. Patient did not acknowledge this fha underwriter, only spoke to say that he has not been sleeping. Patient kept eyes closed the entire time. SW will try to meet with patient on Tuesday for SDOH screening, after patient has had a little more time clear up. This wrier noted that patient has [place] [employer], which is sometimes harder for find coverage for. Due to this, sending referrals to all three choices. Message to A[facility] at [facility] admissions. Message left of referral. Referrals sent to [facility] and [facility] via [employer] for consideration. Plan: SW to follow for SDOH screening and discharge planning. Anticipate short term SNF: Referrals pending with [facility], [facility], and [facility]. -ANN Gonzalez
[2023-10-08] MEDS: Calcium Carbonate 500 MG Tablet 1000 MG PO ×2 (15:32→22:17)
[2023-10-08 15:42] VITALS: BP 112/62; PULSE 62; RESP 16; TEMP 37; O2SAT 98
[2023-10-08] MEDS: Acetaminophen 325 MG Tablet 650 MG PO (22:11)
[2023-10-08 22:19] VITALS: BP 143/67; PULSE 63; RESP 16; TEMP 36.4; O2SAT 97
[2023-10-09 05:00] VITALS: BP 130/61; PULSE 76; RESP 16; TEMP 36.6; O2SAT 96
[2023-10-09 06:32] LABS: Absolute Lymphocyte Count 1.74 X10^3/uL (0.83-4.51); Absolute Neutrophil Count 8.5 X10^3/uL (2.0-7.7); Basophil# 0.02 X10^3/uL; Basophil% 0.2 % (0-1); Eosinophil# 0.07 X10^3/uL; Eosinophils% 0.6 % (0-5); Hematocrit 38.4 % (40-54); Hemoglobin 13.6 g/dL (13.0-16.5); Lymphocyte # 1.74 X10^3/ul (0.83-4.51); Lymphocyte % 15.2 % (19-41); Mean Corp Hgb Conc 35.4 g/dL (32-36); Mean Corpuscular Hgb 32.1 pg (27.0-32.0); Mean Corpuscular Volume 90.6 fL (80-94); Mean Platelet Vol. 9.5 fl (6.2-12.0); Monocyte# 1.09 X10^3/uL; Monocyte% 9.5 % (0-10); NRBC Flagged by Analyzer 0 % (0-5); Neutrophil # 8.45 X10^3/uL (2.7-7.7); Neutrophil % 73.6 % (47-70); Platelet Count 219 K/mm3 (150-450); Red Blood Count 4.24 M/mm3 (4.6-6.2); White Blood Count 11.5 K/mm3 (4.4-11.0)
[2023-10-09 06:59] LABS: Anion Gap 7 (5-15); BUN 27 mg/dL (7-18); BUN/Creat Ratio 44.6 RATIO (10-20); Chloride 99 mmol/L (98-107); EST Glomerular Filtration Rate 135 mL/min (>60); Est Glom Filt Rate - Afr Amer 164 mL/min (>60); Estimated Creatinine Clearance 69.96 ml/min; Glucose 107 mg/dL (74-106); Potassium 3.1 mmol/L (3.5-5.1); Sodium Level 133 mmol/L (136-145)
[2023-10-09] MEDS: Potassium Chloride Oral Tablet 20 MEQ 40 MEQ PO (07:57)
[2023-10-09] MEDS: Senna/Docusate Sodium 1 Tablet 2 TABLET PO ×2 (07:58→21:26)
[2023-10-09] MEDS: Atenolol 25 MG Tablet PO (07:58)
[2023-10-09] MEDS: Hydroxychloroquine 200 MG Tablet PO ×2 (07:58→21:26)
[2023-10-09] MEDS: Pantoprazole Sodium 40 MG Tablet PO (07:58)
[2023-10-09] MEDS: hydroCHLOROthiazide 12.5mg 12.5 MG PO (07:58)
[2023-10-09] MEDS: Losartan Potassium 25 MG Tablet PO ×2 (07:59→21:26)
[2023-10-09] MEDS: Enoxaparin 40 MG/0.4 ML Syringe SC (07:59)
[2023-10-09] MEDS: Meloxicam 7.5 MG Tablet PO (07:59)
[2023-10-09 09:05] VITALS: BP 115/69; PULSE 73; RESP 16; TEMP 36.3; O2SAT 96
[2023-10-09 11:31] VITALS: BP 93/51; PULSE 63; RESP 16; TEMP 36.4; O2SAT 98
[2023-10-09] MEDS: Calcium Carbonate 500 MG Tablet 1000 MG PO ×2 (12:10→19:55)
--- NOTE | 2023-10-09 12:11 | PN.HOSP_ITS ---
Reason for Visit Reason for Visit: Diagnoses Disease of spinal cord, unspecified (10/06/23) Cervicalgia (10/06/23) Subjective Subjective Mental status continues to improve and this was confirmed by family members at bedside, feeling slightly better overall but still does have neck pain Objective Data Objective Data Vital Signs: Vital Signs Temp Pulse Resp BP Pulse Ox O2 Del Method 97.6 F L 63 16 93/51 L 98 Room Air 10/09/23 11:31 10/09/23 11:31 10/09/23 11:31 10/09/23 11:31 10/09/23 11:31 10/09/23 11:31 Oxygen Delivery Method Room Air Weight: 70.7 kg Body Mass Index (BMI) 20.5 Intake & Output: Intake and Output for Last 24 Hours 10/07/23 10/08/23 10/09/23 23:59 23:59 23:59 Intake Total 350 / 350 60 / 60 250 / 250 Output Total 200 / 200 Balance 350 / 350 60 / 60 50 / 50 Medical Nutrition Assessment Dietitian: Malnutrition Criteria Met Start: 10/07/23 14:23 Freq: Status: Active Protocol: Document 10/07/23 14:23 SLA (Rec: 10/07/23 14:23 SLA [email or web address]) Nutrition Malnutrition Evidence of Malnutrition Exists Yes Malnutrition (severe): Acute Illness/Injury Evidenced By Suboptimal Energy Intake ( Severe),Weight Loss (Severe) Clinical Problem Acute Disease or Injury Related Malnutrition Etiology related to no appetite and inadequate energy intake Signs/Symptoms as evidenced by 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 Status Active Problem Recommendation Dietitian Recommendations/Changes Will liberalize diet to Regular d/t signs and symptoms of malnutrition Will change ensure compact to ensure plus high protein w/ medpass for increased otdd/pro per serving. Rec consider appetite stimulant to help increase po intake. Lab / Micro Data 10/09/23 05:50 10/09/23 05:50 Labs: Laboratory Results - last 24 hr 10/09/23 05:50: WBC 11.5 H, RBC 4.24 L, Hgb 13.6, Hct 38.4 L, MCV 90.6, MCH 32.1 H, MCHC 35.4, RDW Std Deviation 40.0, RDW Coeff of Lynne 12.0, Plt Count 219, MPV 9.5, Immature Gran % (Auto) 0.900, Neut % (Auto) 73.6 H, Lymph % (Auto) 15.2 L, Hartley % (Auto) 9.5, Eos % (Auto) 0.6, Baso % (Auto) 0.2, Absolute Neuts (auto) 8.5 H, Absolute Lymphs (auto) 1.74, Nucleated RBC % 0, Sodium 133 L, Potassium 3.1 L, Chloride 99, Carbon Dioxide 27.0, Anion Gap 7, BUN 27 H, Creatinine 0.60 L, Estim Creat Clear Calc 69.96, Est GFR (MDRD) Af Amer 164, Est GFR (MDRD) Non- Af 135, BUN/Creatinine Ratio 44.6 H, Glucose 107 H, Calcium 9.0 Radiography Diagnostic Testing: Radiology Impression Chest X-Ray 10/08/23 13:57 IMPRESSION: No radiographic evidence of acute cardiopulmonary disease. Electronically Signed: Dayron Marley MD at 23:25 EDT , Physical Exam Narrative General: Alert, oriented, no apparent distress HEENT: Atraumatic, normocephalic Eyes: Anicteric, normal conjunctiva, extraocular movements grossly intact Neck: Supple Respiratory: Clear to auscultation bilaterally, normal respiratory effort Cardiovascular: Regular rate and rhythm GI: Soft, nontender, nondistended Extremities: No edema Musculoskeletal: Moving all extremities Neuro: No overt focal neurological deficits Skin: No rashes appreciated Psych: Cooperative Assessment & Plan Assessment/Plan (1) Neck pain: (2) Hypertension: QUALIFIERS: Hypertension type: primary hypertension Qualified Code(s): I10 - Essential (primary) hypertension (3) GERD (gastroesophageal reflux disease): PLAN: Plan # Acute debility secondary to right-sided neck pain ? He had seen spine surgery as an outpatient with an MRI of his cervical spine as well as his brain, no strokes ? There is canal stenosis and orthospine requested physical therapy prior to the possibility of surgery however he was admitted due to significant pain and inability to complete ADLs -Patient working with physical therapy, continue supportive care and pain control, present plan is for placement, will discuss with case management and social work tomorrow # Leukocytosis -Had been elevated however this was likely secondary to Decadron, is downtrending -Chest x-ray unremarkable and blood cultures pending however given improvement despite no antibiotics there is low suspicion for infectious process #HTN -Patient with low BP this a.m., hold atenolol and hydrochlorothiazide, holding parameters for losartan -Continue monitor # Altered mental status -Family reports after further discussion they think it may have been patient's initial pain medication dosing -He continues to improve -Can consider scheduling melatonin nightly if any signs of delirium return -Cautious use of pain medication #GERD -Continue PPI #DVT ppx: Lovenox subcu Leslie Moore MD Time spent in the patient's overall evaluation,decision-making process, review of diagnostic data, adjustment of management, discussion with other providers, nursing nursing and ancillary staff involved in patient's care documentation, 37 minutes Charges/Coding Visit Charges Inpatient E&M: 50046 Subs Hosp L2
[2023-10-09 15:06] VITALS: BP 116/58; PULSE 70; RESP 16; TEMP 36.5; O2SAT 99
[2023-10-09 21:00] VITALS: BP 126/65; PULSE 58; RESP 18; TEMP 36.7; O2SAT 98
[2023-10-10 03:00] VITALS: BP 131/73; PULSE 68; RESP 18; TEMP 37; O2SAT 98
[2023-10-10 07:32] LABS: Anion Gap 7 (5-15); BUN 20 mg/dL (7-18); BUN/Creat Ratio 28.1 RATIO (10-20); Calcium,Total 8.9 mg/dL (8.5-10.1); Chloride 102 mmol/L (98-107); Creatinine, Serum 0.71 mg/dL (0.70-1.30); EST Glomerular Filtration Rate 112 mL/min (>60); Est Glom Filt Rate - Afr Amer 136 mL/min (>60); Estimated Creatinine Clearance 69.96 ml/min; Glucose 103 mg/dL (74-106); Potassium 3.7 mmol/L (3.5-5.1); Sodium Level 136 mmol/L (136-145)
[2023-10-10 09:00] VITALS: BP 124/67; PULSE 73; RESP 15; TEMP 36.7; O2SAT 99
--- NOTE | 2023-10-10 09:01 | CASEMGMT ---
Addendum entered by Toshia Salas 10/10/23 12:14: [facility] has accepted and will begin precert. Toshia Salas DC Planning Asst. Addendum entered by Toshia Salas 10/10/23 10:10: [facility] unable to accept d/t no bed availability. Toshia Salas DC Planning Asst. Original Note: Discharge Planning Updates sent to [facility] and [facility]. Toshia Salas DC Planning Asst.
--- NOTE | 2023-10-10 09:18 | CASEMGMT ---
Addendum entered by Andria Torres 10/10/23 09:29: Social Work SW spoke w/daughter Divya, she returned this SW's call. SW explained pt had said he wants to go home, that family and friends can help him. SW inquired w/Divya if family is in agreement w/this, as pt had said family is on board with this plan. Divya states if pt feels he is doing well enough to go home, then he probably is. SW explained we will see how it goes with therapy today before making the final determination. Divya in agreement w/this. She is out of state at present, states daughter Navya will be here this morning. She will update Navya. SW explained that Navya can ask for the SW when she gets here, and SW will stay in touch w/her in regard to plan. Divya in agreement w/this. SW will continue to follow, will check in again w/pt and daughter Navya once pt has PT/OT. LIZ Manley Original Note: Social Work As per physician, pt is now stating he would like to return home. SW met w/pt in room in regard to discharge plan. Pt is stating he does want to go home, and feels he is moving well enough to do so. SW explained that we will see how therapy goes today, and will talk again after that. Pt states he has 3 daughters, friends and neighbors who are all available and willing to help. He states his daughters are in agreement w/him. SW inquired if one of his daughters is POA, he states Divya, and agreeable to SW calling her. SW called Divya, message left. SW will follow up once pt has PT/OT today. LIZ Manley
[2023-10-10] MEDS: Enoxaparin 40 MG/0.4 ML Syringe SC (09:27)
[2023-10-10] MEDS: Hydroxychloroquine 200 MG Tablet PO (09:27)
[2023-10-10] MEDS: Pantoprazole Sodium 40 MG Tablet PO (09:27)
[2023-10-10] MEDS: Losartan Potassium 25 MG Tablet PO (09:27)
[2023-10-10] MEDS: Senna/Docusate Sodium 1 Tablet 2 TABLET PO (09:27)
[2023-10-10] MEDS: Meloxicam 7.5 MG Tablet PO (09:27)
[2023-10-10] MEDS: Ensure Plus High Protein 120 ML LIQUID PO ×2 (09:33→13:03)
--- NOTE | 2023-10-10 12:11 | CASEMGMT ---
Discharge Planning A list of?HH providers including quality and resource use data and consistent with the patient's preferred geographic region, medical needs, and insurance network was created in [employer].? This list was provided to the RN CHAZ. Toshia Salas, Discharge Planning Asst
--- NOTE | 2023-10-10 12:42 | CASEMGMT ---
Social Work SW spoke w/therapy, they state pt is moving well and could go home, possibly w/home health. SW spoke w/pt, pt's daughter Navya, son-in-law and [id number] in room. SW explained that as per therapy, pt is moving well and could go home. Daughter Navya still wants pt to go somewhere for rehab, mentioned TCU. SW explained TCU cannot take pt, and [facility] is full. Daughter again mentioned TCU, SW informed her and pt and family again that TCU is not an option. SW explained the referral at [facility] is still pending, can see if they can take pt and see if they can get insurance authorization. SW explained that pt is moving well however, and insurance may likely deny a SNF stay. Daughter and pt agreeable to seeing what [facility] says, and seeing if the insurance would authorize, though they are aware insurance may not approve. Daughter states pt has been to the ED 6 times, and that all the family is going to be out of town. SW explained that unfortunately insurance may not take this into consideration. They may be agreeable to home health if insurance does not approve--and pt also stating he would prefer to go home actually. SW explained will let them know what [facility] says, and they can continue to discuss the plan. [facility] is still reviewing the referral, and will let JOHNATHAN know. LIZ Manley
[2023-10-10] MEDS: Calcium Carbonate 500 MG Tablet 1000 MG PO (13:03)
[2023-10-10 13:37] LABS: Pathologist Review Reviewed
--- NOTE | 2023-10-10 14:04 | TREXTCAR_ITS ---
Diet Diet Order/Speech Therapy: 10/07/23 14:32 Diet: Regular - General Food consistency:: Regular Liquid Consistency:: Regular/Thin Is pt able to select menu?: Yes Routine Orders/Code Status Suppository Type: Dulcolax 10mg Suppository Frequency: Daily PRN Therapies Physical Therapy: Eval and Treat Occupational Therapy: Eval and Treat Problem/Diagnosis (1) Neck pain: Status: Acute Code(s): M54.2 - Cervicalgia (2) Hypertension: Status: Chronic Code(s): I10 - Essential (primary) hypertension (3) GERD (gastroesophageal reflux disease): Status: Acute Code(s): K21.9 - Gastro-esophageal reflux disease without esophagitis Plan # Acute debility secondary to right-sided neck pain # Leukocytosis- improved #HTN # Altered mental status- resolved #GERD 83-year-old male history of chronic neck and back pain worsened over the past 5 weeks presented to [facility] ED 10/06/2023 at the urging of his orthopedic surgeon Dr. Valdovinos due to inability to care for himself or perform ADLs. Patient worked with physical therapy and was started on meloxicam which began to help his pain. He did have some altered mental status which was deemed to be due to medications and delirium due to his hospitalization and this resolved by day of discharge, did have an elevated white blood cell count but was felt this was due to Decadron which reportedly he got this down trended and cultures that have been obtained were negative despite patient not receiving antibiotics. On day of discharge patient reports he is beginning to feel better, agreeable to SNF and he was discharged in stable condition. DC instructions as follows: DISCHARGE INSTRUCTIONS PLEASE READ *Please take this with you to your next doctors appointment* - Due to somewhat low blood pressure your atenolol and hydrochlorothiazide have been stopped, you will continue your valsartan -You will be continued on 5 more days of meloxicam and Protonix, further prescriptions at the discretion of your next treating physician -Please follow with your orthopedic doctor, Dr. Valdovinos, as previously scheduled or sooner if needed -Please call your primary care provider's office upon discharge to schedule a hospital follow up within 1 week. -For any concerning signs or symptoms please call 911 or proceed to the nearest emergency department Allergies/Procedures Done in Hospital Allergies lorazepam Adverse Reaction (Intermediate, Verified 10/06/23 15:21) Other confusion Type of Care/Length of Stay Estimated LOS: Convalescent Care Less Than 30 days Type of Care Needed: Skilled Rehab Potential: Good Prognosis: Good Additional Orders/Day of Discharge Day of Discharge: 10/10/23 Dietary and Speech Recommendations Dietitian Recommendations/Changes: Will liberalize diet to Regular d/t signs and symptoms of malnutrition Will change ensure compact to ensure plus high protein w/ medpass for increased todd/pro per serving. Rec consider appetite stimulant to help increase po intake. Discharge Plan Admission Admit Date/Time: 10/06/23 18:58 Primary Reason for Your Visit: Neck pain and headache Attending Provider: Leslie Moore Primary Care Provider: Dalia Coley Consulting Providers: Wade Ortiz; Clint Camacho Instructions Patient Instructions: ED Fall Prevention Additional Instructions / Restrictions: DISCHARGE INSTRUCTIONS PLEASE READ *Please take this with you to your next doctors appointment* - Due to somewhat low blood pressure your atenolol and hydrochlorothiazide have been stopped, you will continue your valsartan -You will be continued on 5 more days of meloxicam and Protonix, further prescriptions at the discretion of your next treating physician -Please follow with your orthopedic doctor, Dr. Valdovinos, as previously scheduled or sooner if needed -Please call your primary care provider's office upon discharge to schedule a hospital follow up within 1 week. -For any concerning signs or symptoms please call 911 or proceed to the nearest emergency department Discharge Orders/Prescriptions Prescriptions: New acetaminophen 325 mg Tablet 650 mg PO Q6H PRN PRN (Reason: Pain 1-10 Or Fever >100.7) Qty: 0 0RF meloxicam 7.5 mg Tablet 7.5 mg PO DAILY 5 Days Qty: 0 0RF pantoprazole 40 mg Tablet,Delayed Release (Dr/Ec) 40 mg PO DAILY 5 Days Qty: 0 0RF calcium carbonate 200 mg calcium (500 mg) Tablet,Chewable 1,000 mg PO Q6H PRN PRN (Reason: Heartburn Or Indigestion) Qty: 0 0RF Continued valsartan 80 mg tablet 80 mg PO BID meclizine 25 mg tablet 25 mg PO TID PRN (Reason: dizziness) hydroxychloroquine 200 mg tablet 200 mg PO BID Discontinued hydrochlorothiazide 12.5 mg tablet 12.5 mg PO QDAY atenolol 25 mg tablet 25 mg PO DAILY atorvastatin 10 mg tablet 10 mg PO DAILY Referrals / Follow Up: Nithin Valdovinos MD [Med Staff - Active Staff] - (-Please follow with your orthopedic doctor, Dr. Valdovinos, as previously scheduled or sooner if needed) Brijesh,Dalia, [Primary Care Provider] - Within 1 Week Disposition Disposition (needs filled in before D/C Order can be placed): Group Home Facility (2) Hypertension Qualifiers: Hypertension type: primary hypertension Qualified Code(s): I10 - Essential (primary) hypertension
--- NOTE | 2023-10-10 14:04 | CASEMGMT ---
Discharge Planning [facility] has obtained auth. SW updated. Toshia Salas DC Planning Asst.
[2023-10-10 14:08] VITALS: BP 119/67; PULSE 85; RESP 15; TEMP 36.4; O2SAT 100
--- NOTE | 2023-10-10 14:08 | PCM.DC.SUM ---
Providers Date of Admission: 10/06/23 Date of Discharge: 10/10/23 Primary Care Physician: Dr. Dalia Coley DO Reason For Visit: CERVICAL PAIN/ SPINAL STENOSIS Diagnosis Discharge Diagnosis (1) Neck pain: Status: Acute Code(s): M54.2 - Cervicalgia (2) Hypertension: Status: Chronic Code(s): I10 - Essential (primary) hypertension Qualifiers: Hypertension type: primary hypertension Qualified Code(s): I10 - Essential (primary) hypertension (3) GERD (gastroesophageal reflux disease): Status: Acute Code(s): K21.9 - Gastro-esophageal reflux disease without esophagitis Plan # Acute debility secondary to right-sided neck pain # Leukocytosis- improved #HTN # Altered mental status- resolved #GERD Medications at Discharge Home Medications valsartan 80 mg tablet 80 mg PO BID HTN 09/27/23 hydroxychloroquine 200 mg tablet 200 mg PO BID 10/06/23 meclizine 25 mg tablet 25 mg PO TID PRN dizziness 10/06/23 acetaminophen 325 mg tablet 650 mg (2 x 325 mg) PO Q6H PRN PRN Pain 1-10 Or Fever >100.7 #0 tabs 10/10/23 calcium carbonate 1,000 mg (5 x 200 mg calcium (500 mg)) PO Q6H PRN PRN Heartburn Or Indigestion #0 tabs 10/10/23 meloxicam 7.5 mg tablet 7.5 mg PO DAILY 5 days #0 tabs 10/10/23 pantoprazole 40 mg tablet,delayed release 40 mg PO DAILY 5 days #0 tabs 10/10/23 Hospital Course Summary of Care Provided Minutes Spent on Discharge: 33 Hospital Course: 83-year-old male history of chronic neck and back pain worsened over the past 5 weeks presented to [facility] ED 10/06/2023 at the urging of his orthopedic surgeon Dr. Valdovinos due to inability to care for himself or perform ADLs. Patient worked with physical therapy and was started on meloxicam which began to help his pain. He did have some altered mental status which was deemed to be due to medications and delirium due to his hospitalization and this resolved by day of discharge, did have an elevated white blood cell count but was felt this was due to Decadron which reportedly he got this down trended and cultures that have been obtained were negative despite patient not receiving antibiotics. On day of discharge patient reports he is beginning to feel better, agreeable to SNF and he was discharged in stable condition. DC instructions as follows: DISCHARGE INSTRUCTIONS PLEASE READ *Please take this with you to your next doctors appointment* - Due to somewhat low blood pressure your atenolol and hydrochlorothiazide have been stopped, you will continue your valsartan -You will be continued on 5 more days of meloxicam and Protonix, further prescriptions at the discretion of your next treating physician -Please follow with your orthopedic doctor, Dr. Valdovinos, as previously scheduled or sooner if needed -Please call your primary care provider's office upon discharge to schedule a hospital follow up within 1 week. -For any concerning signs or symptoms please call 911 or proceed to the nearest emergency department Physical Exam Narrative General: Alert, oriented, no apparent distress HEENT: Atraumatic, normocephalic Eyes: Anicteric, normal conjunctiva, extraocular movements grossly intact Neck: Supple Respiratory: Clear to auscultation bilaterally, normal respiratory effort Cardiovascular: Regular rate and rhythm GI: Soft, nontender, nondistended Extremities: No edema Musculoskeletal: Moving all extremities Neuro: No overt focal neurological deficits Skin: No rashes appreciated Psych: Cooperative Medical Records Data Medical Nutrition Assessment Dietitian: Malnutrition Criteria Met Start: 10/07/23 14:23 Freq: Status: Active Protocol: Document 10/07/23 14:23 SLA (Rec: 10/07/23 14:23 SLA [email or web address]) Nutrition Malnutrition Evidence of Malnutrition Exists Yes Malnutrition (severe): Acute Illness/Injury Evidenced By Suboptimal Energy Intake ( Severe),Weight Loss (Severe) Clinical Problem Acute Disease or Injury Related Malnutrition Etiology related to no appetite and inadequate energy intake Signs/Symptoms as evidenced by 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 Status Active Problem Recommendation Dietitian Recommendations/Changes Will liberalize diet to Regular d/t signs and symptoms of malnutrition Will change ensure compact to ensure plus high protein w/ medpass for increased todd/pro per serving. Rec consider appetite stimulant to help increase po intake. Weight / BMI Weight Weight: 70.7 kg Body Mass Index (BMI) 20.5 ABG / Lab / Microbiology Data 10/09/23 05:50 10/10/23 06:40 Laboratory: Laboratory Results - last 24 hr 10/08/23 05:55: Diff Path Review Reviewed 10/10/23 06:40: Sodium 136, Potassium 3.7, Chloride 102, Carbon Dioxide 27.0, Anion Gap 7, BUN 20 H, Creatinine 0.71, Estim Creat Clear Calc 69.96, Est GFR (MDRD) Af Amer 136, Est GFR (MDRD) Non-Af 112, BUN/Creatinine Ratio 28.1 H, Glucose 103, Calcium 8.9 Microbiology: Microbiology 10/08/23 07:45 Blood Culture (Wb) - Left Hand Blood Culture - Preliminary No growth in 48 hours. 10/08/23 07:40 Blood Culture (Wb) - Anticubital Left Blood Culture - Preliminary No growth in 48 hours. Meaningful Use Info Meaningful Use Meaningful Use Diagnoses (Choose all that apply): None applicable Ischemic Stroke Statin Dosing Therapy Reference: STATIN DOSE THERAPY REFERENCE: * Patients > 75 years receive moderate or high dose statin therapy. * Patients 75 years or YOUNGER should receive HIGH intensity statin dose unless contraindicated. You will be required to document reason for non-treatment if statin daily dose does not meet guidelines. HIGH DOSE STATIN THERAPY DAILY Atorvastatin > than or = to 40 mg Rosuvastatin > than or = to 20 mg Amlodipine + Atorvastatin > than or = to 2.5/40 mg Ezetimibe + Simvastatin 10/80 mg Simvastatin 80mg Discharge Plan Admission Admit Date/Time: 10/06/23 18:58 Primary Reason for Your Visit: Neck pain and headache Attending Provider: Leslie Moore Primary Care Provider: Dalia Coley Consulting Providers: Wade Ortiz; Clint Camacho Instructions Patient Instructions: ED Fall Prevention Additional Instructions / Restrictions: DISCHARGE INSTRUCTIONS PLEASE READ *Please take this with you to your next doctors appointment* - Due to somewhat low blood pressure your atenolol and hydrochlorothiazide have been stopped, you will continue your valsartan -You will be continued on 5 more days of meloxicam and Protonix, further prescriptions at the discretion of your next treating physician -Please follow with your orthopedic doctor, Dr. Valdovinos, as previously scheduled or sooner if needed -Please call your primary care provider's office upon discharge to schedule a hospital follow up within 1 week. -For any concerning signs or symptoms please call 911 or proceed to the nearest emergency department Discharge Orders/Prescriptions Prescriptions: New acetaminophen 325 mg Tablet 650 mg PO Q6H PRN PRN (Reason: Pain 1-10 Or Fever >100.7) Qty: 0 0RF meloxicam 7.5 mg Tablet 7.5 mg PO DAILY 5 Days Qty: 0 0RF pantoprazole 40 mg Tablet,Delayed Release (Dr/Ec) 40 mg PO DAILY 5 Days Qty: 0 0RF calcium carbonate 200 mg calcium (500 mg) Tablet,Chewable 1,000 mg PO Q6H PRN PRN (Reason: Heartburn Or Indigestion) Qty: 0 0RF Continued valsartan 80 mg tablet 80 mg PO BID meclizine 25 mg tablet 25 mg PO TID PRN (Reason: dizziness) hydroxychloroquine 200 mg tablet 200 mg PO BID Discontinued hydrochlorothiazide 12.5 mg tablet 12.5 mg PO QDAY atenolol 25 mg tablet 25 mg PO DAILY atorvastatin 10 mg tablet 10 mg PO DAILY Referrals / Follow Up: Nithin Valdovinos MD [Med Staff - Active Staff] - (-Please follow with your orthopedic doctor, Dr. Valdovinos, as previously scheduled or sooner if needed) Dalia Coley DO [Primary Care Provider] - Within 1 Week Disposition Disposition (needs filled in before D/C Order can be placed): Snf Facility Charges/Coding Visit Charges Inpatient E&M: 58791 Disch Hosp >30min
--- NOTE | 2023-10-10 14:44 | CASEMGMT ---
Social Work Pt was accepted by [facility] and precert attained. SW called daughter Navya, she is in agreement w/pt going to [facility] and states pt in agreement too. SW did try to speak w/pt but he is sleeping at present. SW completed the hospital exemption in the [facility] system. D/C strategic planning manager setting up the discharge. Pt's daughter plans to drive pt over to [facility]. No further needs, pt to [facility], skilled, today. LIZ Manley
--- NOTE | 2023-10-10 15:17 | CASEMGMT ---
Discharge Planning Discharge orders, signed med list, covid results, and transport time sent to [facility]. Family will transport patient around 4p. Nursing and SW updated. Toshia Salas DC Planning Asst.
== END 2023-10-10 15:51 | disposition skilled nursing facility (03) | DRG 551 ==
LOC: ED 17:18 → MS3 19:07
PROVIDERS: Family Medicine; Admitting Provider Internal Medicine; Emergency Provider Emergency Medicine; PCP Internal Medicine; Visit Provider Internal Medicine
DX: M48.02 Spinal stenosis, cervical region (principal); E43 Unspecified severe protein-calorie malnutrition; G95.9 Disease of spinal cord, unspecified; R62.7 Adult failure to thrive; I10 Essential (primary) hypertension; E87.6 Hypokalemia; K21.9 Gastro-esophageal reflux disease without esophagitis; E78.5 Hyperlipidemia, unspecified; R53.81 Other malaise; Z66 Do not resuscitate; Z87.891 Personal history of nicotine dependence; Z51.5 Encounter for palliative care; Z79.1 Long term (current) use of non-steroidal anti-inflammatories (NSAID); Z68.20 Body mass index [BMI] 20.0-20.9, adult
CPT/HCPCS: 36415; 70496; 70498; 71046; 80048; 81001; 83735; 85025; 87040; 87426; 93225; 93226; 97110; 97162; 97166; 97530; 97535; 97802; 99285; J7030; Q9967; A4216; J2405

== ENCOUNTER 2023-10-15 16:10 | Emergency (ER) | payer MEDICARE, SELFPAY ==
[2023-10-15 16:11] VITALS: BP 206/81; PULSE 94; RESP 16; TEMP 36.6; O2SAT 99; BMI 23.0
--- NOTE | 2023-10-15 16:39 | CT_ITS ---
STUDY: CT BRAIN WITHOUT CONTRAST REASON FOR EXAM: Male, 83 years old. headache, HTN RADIATION DOSAGE (If Supplied By Facility): CTDIvol = ( 44.99 ) mGy, DLP = ( 2023. ) mGycm TECHNIQUE: Transaxial CT imaging of the brain was performed without administration of intravenous contrast material. Individualized dose optimization techniques were used for this CT. The protocol utilizes one or more of the following dose reduction techniques: automated exposure control, adjustment of mA and/or kV according to patient size,and/or use of iterative reconstruction technique. COMPARISON: CTA brain October 07 2023 MR brain September 28, 2023. September 27, 2023 CT brain. FINDINGS: Intracranial atherosclerosis. Normal soft tissue structures. Normal calvarium. There is mild cerebral atrophy with widening of the extra-axial spaces and ventricular dilatation. There are areas of decreased attenuation within the white matter tracts of the supratentorial brain, consistent with microvascular disease changes. Normal basal ganglia and thalami. Normal brainstem. Normal cerebellum. There is no intracranial hemorrhage. There are no findings of an acute ischemic infarction. Normal visualized paranasal sinuses. CT/Brain/Head without Contrast IMPRESSION: Chronic involutional changes of the brain. Electronically Signed: Paulino Noyola MD at 17:29 EDT ,
--- NOTE | 2023-10-15 16:39 | EKG12_ITS ---
Test Reason : HTN Blood Pressure : / mmHG Vent. Rate : 079 BPM Atrial Rate : 079 BPM P-R Int : 182 ms QRS Dur : 090 ms QT Int : 376 ms P-R-T Axes : 042 014 024 degrees QTc Int : 431 ms Normal sinus rhythm Normal ECG Confirmed by Adam Cohen ([id number]), tape editor SARIAH MEJIA ([id number]) on 10/17/2023 10:32:41 AM Referred By: Confirmed By:Adam Cohen
--- NOTE | 2023-10-15 16:43 | EX.ED.DYSGE1 ---
HPI History of Present Illness Chief Complaint: Hypertension Informant: patient and family Narrative Narrative: Patient presents from [facility] home secondary to hypertension. Patient was admitted to the hospital October 05 secondary to debility and chronic neck pain. His atenolol and hydrochlorothiazide were held during that hospitalization secondary to low blood pressures. He continued his valsartan. He was discharged to the [facility] home on the . Yesterday they started noticing significantly elevated blood pressures. It appears patient has been getting losartan 100 mg daily for the past 5 days. An order today was written to start atenolol again tomorrow morning and to start clonidine every 8 hours. He did receive 1 dose of clonidine this afternoon. Patient does report some nausea as well as right posterior head pain. [facility] Medical History (Updated 10/15/23 @ 18:[address] Dimple Javed MD) Cervical myelopathy Carotid stenosis Dizziness GERD (gastroesophageal reflux disease) Hypertension Home Medications ?Medication ?Instructions ?Recorded ?Last Taken ?Type valsartan 80 mg tablet 80 mg PO BID HTN 09/27/23 10/06/23 History hydroxychloroquine 200 mg tablet 200 mg PO BID 10/06/23 Unknown History meclizine 25 mg tablet 25 mg PO TID PRN dizziness 10/06/23 10/06/23 History acetaminophen 325 mg tablet 650 mg (2 x 325 mg) PO Q6H PRN PRN 10/10/23 Unknown Rx Pain 1-10 Or Fever >100.7 #0 tabs calcium carbonate 1,000 mg (5 x 200 mg calcium (500 10/10/23 Unknown Rx mg)) PO Q6H PRN PRN Heartburn Or Indigestion #0 tabs meloxicam 7.5 mg tablet 7.5 mg PO DAILY 5 days #0 tabs 10/10/23 Unknown Rx pantoprazole 40 mg tablet,delayed 40 mg PO DAILY 5 days #0 tabs 10/10/23 Unknown Rx release Allergy/AdvReac Type Severity Reaction Status Date / Time lorazepam AdvReac Intermediate Other Verified 10/15/23 16:17 Family History Father Cancer Prostate CA Mother Hypertension Myocardial infarction at 73 of OR and pulmonary HTN Surgical History H/O carpal tunnel repair Rotator cuff tear, left lumbarectomy Social History household members: none Smoking Status: Former smoker how long ago did patient quit smokin years ago alcohol intake: never substance use type: does not use what type of physical activity do you participate in: walking frequency: 5-6 times per week duration: 45-60 minutes/day seatbelt use: always ROS ROS ED Constitutional Constitutional ED: Denies chills or fever(s) Eyes Eyes: Denies discharge from eye(s) ENT ENT ED: Denies discharge from eye(s), rhinorrhea or sore throat Cardiovascular Cardiovascular: Denies chest pain or palpitations Respiratory/Chest Respiratory/Chest: Denies cough or dyspnea Gastrointestinal Gastrointestinal: Reports nausea; Denies abdominal pain or diarrhea Genitourinary Genitourinary ED: Denies dysuria Musculoskeletal Musculoskeletal: Denies back pain or extremity pain Integumentary Denies Abrasions or rash Neurologic Neurologic: Reports headache(s); Denies weakness Psychiatric Psychiatric: Denies anxiety or depression Allergic/Immunologic Allergic/Immunologic ED: Denies lip swelling or urticaria EXAM Physical Exam Const Vital Signs: 10/15/23 16:11 10/15/23 17:17 10/15/23 17:40 Temperature 97.8 F Temperature Source Oral Pulse Rate 94 63 81 Respiratory Rate 16 14 22 H Blood Pressure 206/81 H 198/80 H 177/82 H Blood Pressure Mean 122 119 113 Pulse Ox 99 99 100 Oxygen Delivery Method Room Air Room Air Room Air Positive well nourished and well developed General Appearance ED: well developed HEENT Reports moist mucous membranes Eyes EOMs intact bilaterally Chest Wall inspection of chest normal and palpation of chest normal Resp normal respiratory effort and clear to auscultation bilaterally Cardio regular rate and regular rhythm GI non-tender Palpation: soft Extremity normal to inspection Neuro oriented x3 Neuro Narrative: No focal neurologic deficit. Psych mental status grossly normal Skin no rashes or lesions noted MDM MDM MDM Narrative Medical decision making narrative: Patient's blood pressure on arrival was 206/81. Patient placed on cardiac rn. IV line initiated. EKG obtained to evaluate for cardiac arrhythmia/ischemia. Chest x-ray obtained to evaluate for acute lung pathology, cardiac size, or mediastinal abnormality. Labwork obtained to evaluate for leukocytosis, anemia, and electrolyte derangement. Given his headache and significant hypertension a head CT will be obtained to evaluate for any acute intracranial bleed. Daughter does state he has been complaining of pain to his right posterior head from his neck. Patient be given Zofran along with a dose of labetalol. History & Record Review Discussion w/independent historian: Patient and Family Additional record(s) reviewed:: Prior inpatient record, Prior ED visit and Prior labs Lab Data Attestation: I reviewed the patient's lab results. Labs: Laboratory Results - last 24 hr 10/15/23 16:41 WBC 10.2 RBC 4.09 L Hgb 13.3 Hct 37.4 L MCV 91.4 MCH 32.5 H MCHC 35.6 RDW Std Deviation 39.8 RDW Coeff of Lynne 11.8 Plt Count 313 MPV 9.3 Immature Gran % (Auto) 1.200 H Neut % (Auto) 76.2 H Lymph % (Auto) 13.7 L [place] % (Auto) 7.8 Eos % (Auto) 0.7 Baso % (Auto) 0.4 Absolute Neuts (auto) 7.8 H Absolute Lymphs (auto) 1.39 Nucleated RBC % 0 Sodium 138 Potassium 3.9 Chloride 103 Carbon Dioxide 25.0 Anion Gap 10 BUN 9 Creatinine 0.51 L Estim Creat Clear Calc 78.28 Est GFR (MDRD) Af Amer 199 Est GFR (MDRD) Non-Af 165 BUN/Creatinine Ratio 17.6 Glucose 119 H Calcium 9.1 Radiography Chest X-Ray - ED: 1 View, Read by ED Physician, Chronic Changes and No Infiltrates Diagnostic Testing: Clinical Impression(s) from Imaging Studies Brain CT 10/15/23 16:39 IMPRESSION: Chronic involutional changes of the brain. Electronically Signed: Paulino Noyola MD at 17:29 EDT , Chest X-Ray 10/15/23 17:04 IMPRESSION: No acute disease Electronically Signed: Paulino Noyola MD at 17:30 EDT , EKG Initial EKG: Attestation: I personally reviewed and interpreted this EKG as follows: Interpretation: Sinus Rhythm (Sinus at 79 with no acute ischemia. No evidence of LVH.) Treatment and Re-Evaluation :: CBC was normal white count of 10.2 with a hemoglobin of 13.3. 76% neutrophils noted. Chemistry studies unremarkable. Portable chest x-ray per my interpretation was chronic changes with no acute infiltrate. No significant signs of cardiomegaly. Radiology interpretation reviewed and agrees. EKG is sinus rhythm with no acute ischemia. No LVH. After 10 mg of IV labetalol, patient's blood pressure is currently 178/85. He states his headache was improved but is now starting to increase slightly again. He requested a dose of Tylenol and something to eat. He specifically wanted [place]. He is tolerating this without difficulty. Patient will be given a p.o. dose of metoprolol here 12.5 mg to help control blood pressure tonight. He is scheduled to start atenolol and clonidine tomorrow. He is already on losartan and will continue this. Test results have been discussed with the patient as well as family at bedside. Patient be discharged back to [facility]. Discharge Plan Triage Chief Complaint: Hypertension ED Provider: Dimple Javed Dx/Rx/DC Orders Clinical Impression: Hypertension Instructions: ED Hypertension, Established Prescriptions: No Action valsartan 80 mg tablet 80 mg PO BID meclizine 25 mg tablet 25 mg PO TID PRN (Reason: dizziness) hydroxychloroquine 200 mg tablet 200 mg PO BID acetaminophen 325 mg Tablet 650 mg PO Q6H PRN PRN (Reason: Pain 1-10 Or Fever >100.7) Qty: 0 0RF meloxicam 7.5 mg Tablet 7.5 mg PO DAILY 5 Days Qty: 0 0RF pantoprazole 40 mg Tablet,Delayed Release (Dr/Ec) 40 mg PO DAILY 5 Days Qty: 0 0RF calcium carbonate 200 mg calcium (500 mg) Tablet,Chewable 1,000 mg PO Q6H PRN PRN (Reason: Heartburn Or Indigestion) Qty: 0 0RF Primary Care Provider: Dalia Coley Referrals: Dalia Coley DO [Primary Care Provider] - 1-2 Weeks Print Language: [place] Disposition Disposition: Home, Self Care
[2023-10-15] MEDS: Labetalol (Prefilled) 20 MG/4 ML 10 MG IV (16:50)
[2023-10-15] MEDS: Ondansetron 4 MG/2 ML Vial IV (16:50)
[2023-10-15 16:56] LABS: Absolute Lymphocyte Count 1.39 X10^3/uL (0.83-4.51); Absolute Neutrophil Count 7.8 X10^3/uL (2.0-7.7); Basophil# 0.04 X10^3/uL; Basophil% 0.4 % (0-1); Eosinophil# 0.07 X10^3/uL; Eosinophils% 0.7 % (0-5); Hematocrit 37.4 % (40-54); Hemoglobin 13.3 g/dL (13.0-16.5); Lymphocyte # 1.39 X10^3/ul (0.83-4.51); Lymphocyte % 13.7 % (19-41); Mean Corp Hgb Conc 35.6 g/dL (32-36); Mean Corpuscular Hgb 32.5 pg (27.0-32.0); Mean Corpuscular Volume 91.4 fL (80-94); Mean Platelet Vol. 9.3 fl (6.2-12.0); Monocyte# 0.79 X10^3/uL; Monocyte% 7.8 % (0-10); NRBC Flagged by Analyzer 0 % (0-5); Neutrophil # 7.77 X10^3/uL (2.7-7.7); Neutrophil % 76.2 % (47-70); Platelet Count 313 K/mm3 (150-450); RBC Distribution Width CV 11.8 % (11.6-14.6); RBC Distribution Width SD 39.8 fl (35.1-43.9); Red Blood Count 4.09 M/mm3 (4.6-6.2); White Blood Count 10.2 K/mm3 (4.4-11.0)
--- NOTE | 2023-10-15 17:04 | RAD_ITS ---
STUDY: X-RAY CHEST REASON FOR EXAM: Male, 83 years old. HTN TECHNIQUE: Single frontal view of the chest. COMPARISON: Chest x-ray October 08, 2023 FINDINGS: The lungs are clear and expanded. There is no demonstrated pleural abnormality. Normal size heart. Normal mediastinum and virgie. Normal visualized pulmonary arteries. Normal visualized aortic arch and descending thoracic aorta. Normal visualized thoracic spine. There is degenerative osteoarthritis of the bilateral shoulders. There is no demonstrated abnormality of the visualized soft tissue structures of the upper abdomen. RAD/Chest 1 View (Portable) IMPRESSION: No acute disease Electronically Signed: Paulino Noyola MD at 17:30 EDT ,
[2023-10-15 17:15] LABS: Anion Gap 10 (5-15); BUN 9 mg/dL (7-18); BUN/Creat Ratio 17.6 RATIO (10-20); Calcium,Total 9.1 mg/dL (8.5-10.1); Chloride 103 mmol/L (98-107); Creatinine, Serum 0.51 mg/dL (0.70-1.30); EST Glomerular Filtration Rate 165 mL/min (>60); Est Glom Filt Rate - Afr Amer 199 mL/min (>60); Estimated Creatinine Clearance 78.28 ml/min; Glucose 119 mg/dL (74-106); Potassium 3.9 mmol/L (3.5-5.1); Sodium Level 138 mmol/L (136-145)
[2023-10-15 17:17] VITALS: BP 198/80; PULSE 63; RESP 14; O2SAT 99
[2023-10-15 17:40] VITALS: BP 177/82; PULSE 81; RESP 22; O2SAT 100
[2023-10-15] MEDS: Acetaminophen 500 MG Tablet 1000 MG PO (18:48)
[2023-10-15] MEDS: Metoprolol Tartrate 25 MG Tablet 12.5 MG PO (18:48)
[2023-10-15 18:54] VITALS: BP 158/65; PULSE 76; RESP 15; TEMP 36.9; O2SAT 99
== END 2023-10-15 19:17 | disposition home or self-care (01) ==
PROVIDERS: Emergency Provider Emergency Medicine; PCP Internal Medicine; Visit Provider Emergency Medicine
DX: I10 Essential (primary) hypertension (principal); Z87.891 Personal history of nicotine dependence; Z79.899 Other long term (current) drug therapy; K21.9 Gastro-esophageal reflux disease without esophagitis
CPT/HCPCS: 70450; 71045; 80048; 85025; 93005; 96374; 96375; 99285; A4216; J2405

== ENCOUNTER → 2023-10-17 04:00 | Outpatient (REF) | payer MEDICARE, SELFPAY ==
[2023-10-17 08:18] LABS: Hematocrit 35.1 % (40-54); Hemoglobin 12.7 g/dL (13.0-16.5); Mean Corp Hgb Conc 36.2 g/dL (32-36); Mean Corpuscular Hgb 32.4 pg (27.0-32.0); Mean Corpuscular Volume 89.5 fL (80-94); Mean Platelet Vol. 9.2 fl (6.2-12.0); Platelet Count 303 K/mm3 (150-450); RBC Distribution Width CV 12.2 % (11.6-14.6); RBC Distribution Width SD 38.9 fl (35.1-43.9); Red Blood Count 3.92 M/mm3 (4.6-6.2); White Blood Count 8.6 K/mm3 (4.4-11.0)
[2023-10-17 08:50] LABS: Anion Gap 6 (5-15); BUN 13 mg/dL (7-18); BUN/Creat Ratio 16.9 RATIO (10-20); Chloride 101 mmol/L (98-107); Creatinine, Serum 0.77 mg/dL (0.70-1.30); EST Glomerular Filtration Rate 103 mL/min (>60); Est Glom Filt Rate - Afr Amer 124 mL/min (>60); Glucose 98 mg/dL (74-106); Potassium 3.9 mmol/L (3.5-5.1); Sodium Level 133 mmol/L (136-145)
== END ==
LOC: OLS.ACH 04:00
PROVIDERS: PCP Internal Medicine; Visit Provider Internal Medicine
DX: M50.00 Cervical disc disorder with myelopathy, unspecified cervical region (principal)
CPT/HCPCS: 36415; 80048; 85027

== ENCOUNTER → 2023-12-01 | Outpatient (CLI) | payer MEDICARE, SELFPAY ==
--- NOTE | 2023-12-01 06:43 | MRI_ITS ---
STUDY: MRI LUMBAR SPINE WITHOUT CONTRAST REASON FOR EXAM: Male, 83 years old. RADICULOPATHY, DISC DEGEN TECHNIQUE: Standardized fat and water weighted pulse sequences were obtained in the sagittal and axial planes. COMPARISON: 12/23/2021 FINDINGS: T12-L1: Normal endplates. Normal disc height, hydration and morphology. Normal bilateral facet joints. Normal central canal and bilateral lateral recesses. Normal bilateral intervertebral neural foramina. Normal lumbar lordosis. Mild levoscoliosis centered at L4. Normal conus medullaris that terminates at the L1/L2. Mild loss of height and wedging deformity of the T12 vertebral body with marrow edema along the superior endplate consistent with an acute mild compression fracture. No retropulsion into the spinal canal. Increased loss of height of the L1 vertebral body with marrow edema consistent with an acute on chronic wedge compression fracture also without retropulsion of the spinal canal but with some focal kyphosis. L1-2: Normal endplates. Normal disc height, hydration and morphology. Normal bilateral facet joints. Normal central canal and bilateral lateral recesses. Normal bilateral intervertebral neural foramina. L2-3: No change in the moderate broad disc protrusion which produces moderate spinal stenosis with moderate lateral recess stenosis, mild left lateral recess stenosis and mild bilateral neural foraminal stenosis. L3-4: No change in mild broad disc osteophyte complex produce mild spinal stenosis and mild bilateral neural foraminal stenosis. L4-5: No change in mild broad disc protrusion with resultant mild spinal stenosis and mild bilateral neural foraminal stenosis. L5-S1: No change in the mild broad disc protrusion asymmetric to the left producing mild spinal stenosis and mild left neural foraminal stenosis. Normal visualized sacral ala. Normal visualized paraspinous soft tissue structures. MRI/Spine Lumbar (Routine) IMPRESSION: Acute mild wedge compression fracture of T12 without retropulsion into the spinal canal. Acute on chronic moderate wedge compression fracture of L1 without retropulsion and spinal canal but with focal kyphosis. No change in mild levoscoliosis and degenerative disc disease as described above. Electronically Signed: Patric Greenwood MD at 10:55 EDT ,
== END | disposition home or self-care (01) ==
PROVIDERS: PCP Internal Medicine; Referring Provider Orthopaedic Surgery; Visit Provider Orthopaedic Surgery
DX: M51.36 Other intervertebral disc degeneration, lumbar region (principal); M54.16 Radiculopathy, lumbar region; S22.080D Wedge compression fracture of T11-T12 vertebra, subsequent encounter for fracture with routine healing; X58.XXXD Exposure to other specified factors, subsequent encounter
CPT/HCPCS: 72148

== ENCOUNTER → 2024-03-23 | Outpatient (CLI) | payer MEDICARE, SELFPAY ==
--- NOTE | 2024-03-23 15:42 | STRESSREP ---
Stress Test Report Exercise myocardial perfusion stress test. 83-year-old man with a history of coronary disease Stress protocol: Resting EKG demonstrates normal sinus rhythm with a rate of 62 bpm resting blood pressure is 142/70 mmHg. The patient exercised according to the regular Brendan protocol for a total duration of 6 minutes attaining a maximum heart rate of 181 bpm which was 132% of maximum predicted heart rate; the maximum workload was 7 metabolic equivalents. At rest there were no ST or T wave changes noted to suggest ischemia and at peak exercise upsloping ST changes only were noted which did not meet the criteria for ischemia. The patient did however have a run of a narrow complex tachycardia with a rate of approximately 181 bpm and during that there was 1.[address] depression noted in the lateral leads suggestive of ischemia no clinical angina was noted the test was terminated due to the target heart rate being achieved/fatigue. The peak blood pressure was 164/70 mmHg. Rate-pressure product was 29,300. Myocardial perfusion protocol. 11.9 mCi of technetium 99m sestamibi was injected at rest. The patient exercised according to regular Brendan protocol for total duration of 6 minutes and at peak exercise 35.3 mCi of technetium 99m sestamibi was injected stress images were obtained stress and rest images were reconstructed in comparing the short axis vertical long and horizontal long axis. Gated images were also obtained. Perfusion SPECT analysis: Review of the stress images demonstrate normal uptake of tracer noted in all areas of the myocardium. The resting images similarly demonstrate normal uptake of tracer noted in all areas of the myocardium. No areas of reversibility are noted to suggest ischemia no previous infarct was noted. Gated SPECT analysis: The gated ejection fraction is 60%. Conclusion: Normal exercise myocardial perfusion stress test at a moderate workload Preserved ejection fraction. Narrow complex tachycardia with ST changes asymptomatic
== END | disposition home or self-care (01) ==
LOC: CVS 06:27
PROVIDERS: PCP Nurse Practitioner Family; Referring Provider Internal Medicine Cardiovascular Disease; Visit Provider Internal Medicine Cardiovascular Disease
DX: I25.10 Atherosclerotic heart disease of native coronary artery without angina pectoris (principal)
CPT/HCPCS: 78452; 93017; A9500; A4216

== ENCOUNTER → 2024-04-13 | Outpatient (CLI) | payer MEDICARE, SELFPAY ==
--- NOTE | 2024-04-13 13:13 | RAD_ITS ---
STUDY: XR Chest 2 Views 04/13/2024 1:27 PM REASON FOR EXAM: Male, 83 years old. PREOP COMPARISON: 10/15/2023 TECHNIQUE: XR Chest 2 Views FINDINGS: There is no demonstrated pleural abnormality. Normal heart size. Normal mediastinum. Normal virgie. Prominent appearing increased interstitial lung markings. Normal visualized pulmonary arteries. There is atherosclerotic calcification of the aortic arch with tortuosity. There are diffuse degenerative changes of the visualized thoracic spine. There is degenerative osteoarthritis of the bilateral shoulders. There are no acute findings of the upper abdomen. RAD/Chest PA and Lateral IMPRESSION: There are no acute findings. Electronically Signed: Miquel Stockton MD at 14:23 EST ,
[2024-04-13 13:15] LABS: Mucous, Urine 0 SEEN /hpf (<or=2+)
[2024-04-13 15:07] LABS: Color, Urine Yellow (Yellow); Glucose, Dipstick Normal (Normal); Ketone-Dipstick Negative (Negative); Leukocyte Esterase-Dipstick Negative /ul (Negative); Nitrite-Dipstick Negative (Negative); Occult Blood-Urine Negative /ul (Negative); Protein-Dipstick Negative (Negative); Specific Gravity, Urine 1.015 (1.002-1.030); Urine Bilirubin Dipstick Negative (Negative); Urine Clarity Clear (Clear); Urine Urobilinogen Normal (Normal)
[2024-04-13 15:34] LABS: Bacteria RARE /hpf (None Seen); Red Blood Cells-Urine 0-5 SEEN /hpf (0-5); Squamous Epithelial Cells - UA 0-5 SEEN /hpf (0-5); White Blood Cells 0-5 SEEN /hpf (0-5)
== END | disposition home or self-care (01) ==
LOC: MTLAB 13:12
PROVIDERS: PCP Nurse Practitioner Family; Referring Provider Nurse Practitioner Family; Visit Provider Nurse Practitioner Family
DX: Z01.818 Encounter for other preprocedural examination (principal)
CPT/HCPCS: 71046; 81001

== ENCOUNTER → 2024-04-20 | Outpatient (CLI) | payer MEDICARE, SELFPAY | END | disposition home or self-care (01) | LOC: PSN 09:21 | PROVIDERS: PCP Nurse Practitioner Family; Referring Provider Nurse Practitioner Family; Visit Provider Nurse Practitioner Family | DX: R91.8 Other nonspecific abnormal finding of lung field (principal) | CPT/HCPCS: 94060; 94726; 94729 ==

== ENCOUNTER → 2024-08-20 | Outpatient (CLI) | payer MEDICARE, SELFPAY ==
--- NOTE | 2024-08-20 09:54 | ART_ITS ---
Reason For Study Reason For Study: PVD Procedure A bilateral lower extremity continuous wave Doppler with analog waveform analysis,segmental pressures,and ankle brachial indexes with exercise. Left Segmental Pressures Left brachial= 120mmHg. Left posterior tibial artery = 177mmHg. Left dorsalis pedis artery = 155mmHg. Left digit = 117 mmHg. The left posterior tibial artery waveforms are triphasic. The left dorsalis pedis waveforms are triphasic. Right Segmental Pressures Right brachial= 128mmHg. Right posterior tibial artery = 177mmHg. Right dorsalis pedis artery = 144mmHg. Right digit = 90 mmHg. The right posterior tibial artery waveforms are triphasic. The right dorsalis pedis waveforms are triphasic. Indices The right ankle brachial index by the posterior tibial artery is 1.38. The right ankle brachial index by the dorsalis pedis is 1.13. The right digital-brachial index is 0.70. The right ankle brachial index by the posterior tibial artery post exercise is 1.43. The left ankle brachial index by the dorsalis pedis is 1.21. The left ankle brachial index by the posterior tibial artery is 1.38. The left digital-brachial index is 0.91. The left posterior tibial artery index post exercise is 1.46. VL/Lower Ext Art Exam w/ Exercise Interpretation Summary Triphasic Doppler waveforms are noted at ankle level bilaterally. Pulse-volume recordings appear satisfactory at all levels bilaterally. Resting ankle-brachial indices are normal bilaterally. Digi joshua-brachial indices are normal bilaterally. The patient ambulated at 2 MPH at a 5% incline for 5 minutes, foll owing which ankle pressures augmented bilaterally, a normal physiological response. There is no evidence of significant arterial occlusive disease in the lower ext remities bilaterally. Ordering Physician: Arpit Manuel Referring Physician: ARPIT MANUEL NET DEVELOPER ARCHITECT Performed By: Jacek Dutton RVT
== END | disposition home or self-care (01) ==
LOC: CVS 09:53
PROVIDERS: PCP Nurse Practitioner Family; Referring Provider Nurse Practitioner Family; Visit Provider Nurse Practitioner Family
DX: I73.9 Peripheral vascular disease, unspecified (principal)
CPT/HCPCS: 93924

== ENCOUNTER → 2024-11-20 | Outpatient (CLI) | payer MEDICARE, SELFPAY ==
--- OUTSIDE RECORDS SUMMARY | 2024-11-20 19:56 | XMS RPT_ITS | CCD ---
Author Organization [facility] Care Team Providers Care Front End Developer Designer Name Role Phone Iris Torres Unavailable Teddy Abraham Unavailable Manmary jo, Lizzy Unavailable Unavailable Fast, Barbara A Unavailable Carissa Smith Unavailable Unavailable Unavailable Unavailable Unavailable Unavailable Fast, Barbara A Unavailable Slarb, Carmen Unavailable Unavailable Stephanie Anthony Unavailable Unavailable Fast DO, Barbara A Unavailable Teddy Abraham MD Unavailable [phone] Manmary jo HERNANDEZ, Lizzy Unavailable Unavailable Slarb LIGHT OUT EXAMINER, Carmen Unavailable Unavailable Sarah RNCarissa Unavailable Unavailable Unavailable Unavailable Matthias PHILLIPSN, PAIGE Unavailable Unavailable Gravius AUDIT TECH, Nati Unavailable Unavailable Fast DO, Barbara A Unavailable Dr. Barbara Mills Primary Care Provider [phone] Dr. Barbara Mills Referring Provider KATARINA Sanchez Attending Provider Bladimir MON, Giselle Corrigan Unavailable Dr. Topher Lu Emergency Provider [phone] Akbar Hotra Admit Provider Dr. Akbar Horta Attending Provider Dr. Akbar Horta Other Provider Dr. Dayron Kelly Attending Provider Dr. Dayron Kelly Other Provider Fast DO, Barbara A Unavailable [facility], He [facility] Unavailable Jarad MON, Teddy Kovacs Unavailable Mercedes AUDIT TECH, Lizzy Unavailable Unavailable Sarah RN, Carissa Unavailable Unavailable Unavailable Unavailable Bladimir MON, Giselle Corrigan Unavailable TESTRAKE, TARAN Attending Unavailable TESTRAKE, TARAN Referring Unavailable TESTRAKE, TARAN Attending Unavailable TESTRAKE, TARAN Attending Unavailable Slarb LIGHT OUT EXAMINER, Carmen Unavailable Unavailable Fast, Dr. Jimenez Primary Care Provider Dr. Yadi Crenshaw Attending Provider Jennifer MON, Ewa Bonilla Unavailable Fast DO, Barbara A Unavailable Unavailable Unavailable Fast DO, Barbara A Referring Unavailable Fast DO, Barbara A Attending Unavailable Fast DO, Barbara A Consulting Unavailable Raj LIGHT OUT EXAMINER, Stephanie Unavailable Unavailable Fast DO, Barbara A Primary Care Provider FAST DO, DR JIMENEZ Primary Care Physician CHOUJAA DO, NIDAL Attending Unavailable FAST DO, DR JIMENEZ Primary Care Unavailable CHOUJAA DO, NIDAL Attending Unavailable FAST DO, DR JIMENEZ Primary Care Unavailable FAST DO, DR JMIENEZ Primary Care Unavailable FAST DO, DR JIMENEZ Attending Unavailable FAST, BARBARA A Referring Unavailable FAST, BARBARA A Primary Care Unavailable KALEB PARTS ANALYST-DOUGH MAKER, [place] Primary Care Physician ANANDA MON, DR PRIYANK Holden Attending Unavailab le KALEB PARTS ANALYST-DOUGH MAKER, ARPIT Primary Care Unavail able CHRISTOPHER PARTS ANALYST-DOUGH MAKER, VISHAL Bonilla Consulting Unavaila ble ANANDA MON, DR PRIYANK Holedn Admitting Unavailab le KALEB DE LEON-DOUGH MAKER, ARPIT Primary Care Unavail able ANANDA MON, DR PRIYANK Holden Attending Unavailab le KALEB COFFMANDOUGH MAKER, [place] Primary Care Unavail able ANANDA MON, DR PRIYANK Holden Attending Unavailab le KALEB PARTS ANALYST-DOUGH MAKER, [place] Primary Care Unavail able MELVIN TAMAYO, ROBERT Kovacs Attending Unavailable KALEB PARTS ANALYST-DOUGH MAKER, [place]PIT Primary Care Unavail able ANANDA MON, DR PRIYANK Holden Attending Unavailab le Kaleb CLAIMS VICE PRESIDENT-C, [place] Primary Care Provider Kaleb CLAIMS VICE PRESIDENT-C, [place] Referring Provider [phone] Dr. Favian Snyder DO Attending Provider Kaleb CLAIMS VICE PRESIDENT-C, [place] Attending Provider [phone] Kaleb, Arpit Primary Care Unavailable Marge, [place] Attending Unavailable Marge, [place] Referring Unavailable Kaleb, Arpit Primary Care Unavailable Kaleb, [place] Referring Unavailable Kaleb, [place] Attending Unavailable Kaleb, [place]pit Primary Care Unavailable Kaleb, [place] Referring Unavailable Kaleb, [place] Attending Unavailable Kaleb, [place] Attending Unavailable Kaleb, [place] Primary Care Unavailable Kaleb, [place] Referring Unavailable Kaleb, [place] Primary Care Unavailable Kaleb, [place] Referring Unavailable Marge, Pito Attending Unavailable Kaleb, [place] Primary Care Unavailable Marge, Pito Attending Unavailable Marge, [place] Consulting Unavailable Marge, [place] Referring Unavailable Kaleb, [place]pit Primary Care Unavailable Kaleb, [place] Referring Unavailable Barry Crowley NP Attending Unavailable Kaleb, [place] Primary Care Unavailable Kaleb, [place] Referring Unavailable Favian Snyder Attending Unavailable Nithin Valdovinos Attending Unavailable Fast, Barbara Referring Unavailable Fast, Barbara Primary Care Unavailable Fast, Barbara Primary Care Unavailable Marge, [place] Attending Unavailable Fast, Barbara Referring Unavailable Fast, Barbara Primary Care Unavailable Charles Ramey Attending Unavailable Marge, [place] Attending Unavailable Fast, Barbara Primary Care Unavailable Kaleb, [place]pit Primary Care Unavailable Kaleb, [place] Referring Unavailable Raul Bond Attending Unavailable Kaleb, [place] Attending Unavailable Kaleb, [place]pit Primary Care Unavailable Kaleb, [place] Referring Unavailable WrightOlman leyva Referring Unavailable Olman Wright Attending Unavailable Fast, Barbara Primary Care Unavailable Allergies Allergy Classification Reported Allergen(s) Allergy Type Date of Onset Reaction(s) Facility (1 source) ALLERGIES NOT ON FILE; Translations: [ALLERGIES NOT ON FILE] Propensity to adverse reactions (disorder) [facility] 2 Repository (1 source) LORazepam Drug Allergy 5 Other [facility] Comment on above: confusion (1 source) LORazepam Drug Allergy 5 [facility] Repository NEGATED: Highlighted row has been ruled out! (1 source) Allergy to substance (finding) 0 [facility]; [facility] Work Phone: NEGATED: Highlighted row has been ruled out! (1 source) Allergy to drug (finding) [facility]; [facility] Work Phone: NEGATED: Highlighted row has been ruled out! (1 source) Allergy to substance (finding) 0 [facility]; [facility] Work Phone: NEGATED: Highlighted row has been ruled out! (1 source) Allergy to drug (finding) [facility]; [facility] Work Phone: NEGATED: Highlighted row has been ruled out! (1 source) Allergy to substance (finding) 0 [facility]; [facility] Work Phone: NEGATED: Highlighted row has been ruled out! (1 source) Allergy to drug (finding) [facility]; [facility] Work Phone: NEGATED: Highlighted row has been ruled out! (1 source) Allergy to substance (finding) 0 [facility]; [facility] Work Phone: NEGATED: Highlighted row has been ruled out! (1 source) Allergy to drug (finding) [facility]; [facility] Work Phone: NEGATED: Highlighted row has been ruled out! (1 source) Allergy to substance (finding) 0 [facility]; [facility] Work Phone: NEGATED: Highlighted row has been ruled out! (1 source) Allergy to drug (finding) [facility]; [facility] Work Phone: NEGATED: Highlighted row has been ruled out! (1 source) Allergy to substance (finding) 0 [facility]; [facility] Work Phone: NEGATED: Highlighted row has been ruled out! (1 source) Allergy to drug (finding) [facility]; [facility] Work Phone: NEGATED: Highlighted row has been ruled out! (1 source) Allergy to substance (finding) 0 [facility]; [facility] Work Phone: NEGATED: Highlighted row has been ruled out! (1 source) Allergy to drug (finding) [facility]; [facility] Work Phone: NEGATED: Highlighted row has been ruled out! (1 source) Allergy to substance (finding) 0 [facility]; [facility] Work Phone: NEGATED: Highlighted row has been ruled out! (1 source) Allergy to drug (finding) [facility]; [facility] Work Phone: NEGATED: Highlighted row has been ruled out! (1 source) Allergy to substance (finding) 0 [facility]; [facility] Work Phone: NEGATED: Highlighted row has been ruled out! (1 source) Allergy to drug (finding) [facility]; [facility] Work Phone: NEGATED: Highlighted row has been ruled out! (1 source) Allergy to substance (finding) 0 [facility]; [facility] Work Phone: NEGATED: Highlighted row has been ruled out! (1 source) Allergy to drug (finding) [facility]; [facility] Work Phone: NEGATED: Highlighted row has been ruled out! (1 source) Allergy to substance (finding) 0 [facility]; [facility] Work Phone: NEGATED: Highlighted row has been ruled out! (1 source) Allergy to drug (finding) [facility]; [facility] Work Phone: NEGATED: Highlighted row has been ruled out! (1 source) Allergy to substance (finding) 0 [facility]; [facility] Work Phone: NEGATED: Highlighted row has been ruled out! (1 source) Allergy to drug (finding) [facility]; [facility] Work Phone: NEGATED: Highlighted row has been ruled out! (1 source) Allergy to substance (finding) 0 [facility]; [facility] Work Phone: NEGATED: Highlighted row has been ruled out! (1 source) Allergy to drug (finding) [facility]; [facility] Work Phone: NEGATED: Highlighted row has been ruled out! (1 source) Allergy to substance (finding) 0 [facility]; [facility] Work Phone: NEGATED: Highlighted row has been ruled out! (1 source) Allergy to drug (finding) [facility]; [facility] Work Phone: NEGATED: Highlighted row has been ruled out! (1 source) Allergy to substance (finding) 0 [facility]; [facility] Work Phone: NEGATED: Highlighted row has been ruled out! (1 source) Allergy to drug (finding) [facility]; [facility] Work Phone: NEGATED: Highlighted row has been ruled out! (1 source) Allergy to substance (finding) 0 [facility]; [facility] Work Phone: NEGATED: Highlighted row has been ruled out! (1 source) Allergy to drug (finding) [facility]; [facility] Work Phone: NEGATED: Highlighted row has been ruled out! (1 source) Allergy to substance (finding) 0 [facility]; [facility] Work Phone: NEGATED: Highlighted row has been ruled out! (1 source) Allergy to drug (finding) [facility]; [facility] Work Phone: NEGATED: Highlighted row has been ruled out! (1 source) Allergy to substance (finding) 0 [facility]; [facility] Work Phone: NEGATED: Highlighted row has been ruled out! (1 source) Allergy to drug (finding) [facility]; [facility] Work Phone: Medications Current Medications Medication Drug Class(es) Dates Sig (Normalized) Sig (Original) acetaminophen 1000 mg oral tablet (2 sources) Start: 05-30-2024 take 1 tablet by mouth once daily Tylenol Dose : 1,000 mg = 2 tab(s), Oral, TID, not to exceed 3000 mg/day, 0 Refill(s) Start Date: 05/30/24 Status: Ordered Repeat number: 1 Start: 10-10-2023 Acetaminophen 325 mg Tablet Active 650 mg PO EVERY 6 HOURS NEEDED as needed for Pain 1-10 Or Fever >100.7 0 October 10, 2023 12:00am aspirin 81 mg oral tablet (20 sources) Platelet Aggregation Inhibitor, Nonsteroidal Anti-inflammatory Drug Start: 05-30-2024 take 1 tablet by mouth once daily aspirin Dose : 81 mg = 1 tab(s), Oral, BID, Take 81 mg aspirin twice daily with food for 2 weeks postoperatively for DVT prophylaxis. After 2 weeks you can then go back to 81 mg aspirin daily as prescribed, 0 Refill(s) Start Date: 05/30/24 Status: Ordered Repeat number: 1 Start: 02-06-2024 take 1 tablet by george th once daily Aspirin (Adult Aspirin Regimen) 81 mg tablet,delayed release (DR/EC) Active 81 mg PO daily February 06, 2024 12:00am Start: 09-27-2023 End: 10-06-2023 take 1 capsule by mouth once daily Aspirin 81 mg capsule Discontinued 81 mg PO DAILY September 27, 2023 12:00am October 06, 2023 5:22pm Start: 08-28-2015 End: 12-04-2020 Aspirin (Adult Low Dose Aspi rin) 81 mg tablet,delayed release (DR/EC) Discontinued 81 mg PO AT BEDTIME December 22, 2018 12:00am December 04, 2020 3:49pm Comment on above: Take 1 tablet by george th once daily. atorvastatin 10 mg oral tablet (6 sources) HMG-CoA Reductase Inhibitor Start: 12-16-2023 atorvastatin 10 mg oral tablet Dose : 10 mg = 1 tab(s), Oral, Daily, 0 Refill(s) Start Date: 03/26/24 Status: Ordered Repeat number: 1 Start: 09-27-2023 End: 10-10-2023 take 1 tablet by mouth once daily Atorvastatin 10 mg tablet Discontinued 10 mg PO DAILY September 27, 2023 12:00am October 10, 2023 1:58pm calcium carbonate 500 mg chewable tablet (1 source) Start: 10-10-2023 take 1 tablet by mouth every six hours as needed for gastroesophageal reflux disease Calcium Carbonate 200 mg calcium (500 mg) Tablet,Chewable Active 1000 mg PO EVERY 6 HOURS NEEDED as needed for Heartburn Or Indigestion 0 October 10, 2023 12:00am SENOKOT-S (1 source) Start: 05-30-2024 End: 06-01-2024 Senokot S Dose = 2 tab(s), Oral, BID, Take until first bowel movement, then as needed, 0 Refill(s) Start Date: 05/30/24 Stop Date: 06/01/24 Status: Ordered Repeat number: 1 esomeprazole 40 mg delayed release oral capsule (20 sources) Proton Pump Inhibitor Start: 03-26-2024 esomeprazole 40 mg oral delayed release capsule Dose : 40 mg = 1 cap(s), Oral, qDayAC, 0 Refill(s) Start Date: 03/26/24 Status: Ordered Repeat number: 1 Start: 09-27-2023 End: 10-06-2023 take 1 capsule by mouth once daily Esomeprazole Magnesium (Nexium) 40 mg capsule,delayed release(DR/EC) Discontinued 40 mg PO DAILY September 27, 2023 12:00am October 06, 2023 9:00am Start: 11-19-2013 End: 06-10-2021 take 1 capsule by mouth once daily Esomeprazole Magnesium 40 mg capsule,delayed release(DR/EC) Discontinued 0 .ROUTE .COMPLEX 90 January 05, 2019 2:29pm March 08, 2019 2:20pm TAKE ONE CAPSULE BY MOUTH EVERY DAY Comment on above: Mail order. gabapentin 100 mg oral capsule (20 sources) Anti-epileptic Agent Start: 9 gabapentin 100 mg oral capsule Dose : 100 mg = 1 cap(s), Oral, TID Start Date: 03/16/19 Status: Ordered Comment on above: short term script fo r nerve pain after surgery hydroCHLOROthiazide 12.5 mg oral tablet (17 sources) Thiazide Diuretic Start: hydroCHLOROthiazide 12.5 mg oral tablet Dose : 12.5 mg = 1 tab(s), Oral, Daily, 0 Refill(s) Start Date: 03/26/24 Status: Ordered Repeat number: 1 Start: 10-06-2023 End: 10-10-2023 take 1 tablet by mouth once daily Hydrochlorothiazide 12.5 mg tablet Discontinued 12.5 mg PO daily October 06, 2023 12:00am October 10, 2023 1:58pm Start: 09-27-2023 End: 09-27-2023 take 1 tablet by mouth once daily Hydrochlorothiazide 12.5 mg tablet Discontinued 12.5 mg PO DAILY September 27, 2023 12:00am September 27, 2023 3:56pm Start: 12-21-2017 End: 12-27-2017 take 1 tablet by mouth once daily Hydrochlorothiazide 25 mg tablet Discontinued 25 mg PO DAILY December 21, 2017 12:00am December 27, 2017 1:34pm hydroCHLOROthiazide 12.5 mg / olmesartan medoxomil 40 mg oral tablet (20 sources) Thiazide Diuretic, Angiotensin 2 Receptor Yandy Start: 12-04-2020 take 1 tablet by mouth once daily Olmesartan-Hydrochlorothiazide Active 1 TABLET PO DAILY December 04, 2020 3:50pm Start: 12-27-2017 End: 12-04-2020 Olmesartan-Hydrochlorothiazi de 20-12.5 mg tablet Discontinued 1 {tbl} PO DAILY January 05, 2019 2:29pm March 08, 2019 2:29pm hydroxychloroquine sulfate 200 mg oral tablet (20 sources) Antimalarial, Antirheumatic Agent Start: 09-27-2023 End: 10-06-2023 hydroxychloroquine 200 mg oral tablet Dose : 200 mg = 1 tab(s), Oral, BID, # 60 tab(s), 0 Refill(s) Start Date: 03/26/24 Status: Ordered Quantity: 60.0 Unit: tab(s) Repeat number: 1 Start: 05-24-2022 Start: 11-16-2021 End: 11-30-2021 take 1 tablet by mouth twice daily Hydroxychloroquine Sulfate 200 MG Oral Tablet 1 (one) Tablet bid for 0 days Quantity: 60 {Tablet} Refills: 6 Ordered: 30-Nov-2021 Lizzy Long CMA Start : 16-Nov-2021 End : 30-Nov-2021 Inactive Start: 07-20-2021 take 1 tablet by george twice daily Hydroxychloroquine Sulfate 200 MG Oral Tablet 1 (one) Tablet bid for 0 days Quantity: 60 {Tablet} Refills: 3 Ordered: 20-Jul-2021 Lizzy Long CMA Start : 20-Jul-2021 Active Start: 02-05-2020 take 1 tablet by george th twice daily Hydroxychloroquine Sulfate 200 MG Oral Tablet 1 (one) Tablet bid for 0 days Quantity: 60 {Tablet} Refills: 3 Ordered: 05-Feb-2020 Fast DO, Barbara A Fast DO, Barbara A Start : 05-Feb-2020 Active Start: 10-24-2019 take 1 tablet by george twice daily Hydroxychloroquine Sulfate 200 MG Oral Tablet 1 (one) Tablet bid for 0 days Quantity: 60 {Tablet} Refills: 3 Ordered: 24-Oct-2019 Fast DO, Barbara A Fast DO, Barbara A Start : 24-Oct-2019 Active Start: 05-08-2019 End: 12-04-2020 take 1 tablet by mouth once daily Hydroxychloroquine (Plaquenil) 200 mg tablet Discontinued 200 mg PO DAILY May 08, 2019 1:00am December 04, 2020 3:49pm lidocaine 0.05 mg/mg medicated patch (1 source) Antiarrhythmic, Amide Local Anesthetic Start: 09-13-2023 End: 09-20-2023 lidocaine 5% topical patch Apply 1 patch(es), Topical, qDay, remove patches after 12 hours, X 7 day(s), # 7 patch(es), 0 Refill(s), 78.5 Start Date: 09/13/23 Stop Date: 09/20/23 Status: Ordered Multivitamin preparation (7 sources) Start: 01-04-2022 take 1 tablet by mouth once daily Multivitamin Active 1 TABLET PO DAILY January 03, 2022 11:00pm Start: 01-04-2022 take 1 tablet by george once daily Multivitamin Active 1 TABLET PO DAILY January 04, 2022 12:00am naproxen 250 mg oral tablet (1 source) Nonsteroidal Anti-inflammatory Drug Start: 09-13-2023 End: 09-20-2023 naproxen 250 mg oral tablet Dose : 250 mg = 1 tab(s), Oral, BID, X 7 day(s), # 14 tab(s), 0 Refill(s), 09/20/23 12:22:00 AM EDT Start Date: 09/13/23 Stop Date: 09/20/23 Status: Ordered ondansetron 4 mg disintegrating oral tablet (2 sources) Serotonin-3 Receptor Antagonist Start: 10-04-2023 End: 10-09-2023 ondansetron 4 mg oral tablet, disintegrating Dose : 4 mg = 1 tab(s), Oral, q8h, X 5 day(s), # 15 tab(s), 0 Refill(s), 10/09/23 11:49:00 PM EDT Start Date: 10/04/23 Stop Date: 10/09/23 Status: Ordered Start: 09-20-2023 End: 09-27-2023 take 1 tablet by mouth every eight hours as needed for nausea Ondansetron 4 mg tablet,disintegrating Discontinued 4 mg PO EVERY 8 HOURS NEEDED as needed for Nausea September 20, 2023 12:00am September 27, 2023 2:15pm 12 hr orphenadrine citrate 100 mg extended release oral tablet (1 source) Muscle Relaxant Start: 09-13-2023 End: 09-20-2023 orphenadrine 100 mg oral tablet, extended release Dose : 100 mg = 1 tab(s), Oral, BID, X 7 day(s), # 14 tab(s), 0 Refill(s), 09/20/23 12:22:00 AM EDT Start Date: 09/13/23 Stop Date: 09/20/23 Status: Ordered pantoprazole 40 mg delayed release oral tablet (1 source) Proton Pump Inhibitor Start: 10-10-2023 take 1 tablet by mouth once daily Pantoprazole 40 mg Tablet,Delayed Release (Dr/Ec) Active 40 mg PO DAILY 0 October 10, 2023 12:00am valsartan 80 mg oral tablet (20 sources) Angiotensin 2 Receptor Yandy Start: 09-27-2023 valsartan 80 mg oral tablet Dose : 80 mg = 1 tab(s), Oral, BID, 0 Refill(s) Start Date: 03/26/24 Status: Ordered Repeat number: 1 Start: 04-03-2012 End: 08-14-2012 Comment on above: Mail order. Vitamin D3 (4 sources) Start: 03-26-2024 Vitamin D3 Dos e : 100 mcg = 1 tab(s), Oral, Daily, # 90 tab(s), 0 Refill(s) Start Date: 03/26/24 Status: Ordered Quantity: 90.0 Unit: tab(s) Repeat number: 1 Start: 03-26-2024 Vitamin D3 Dos e : 100 mcg = 1 tab(s), Oral, Daily, # 90 tab(s), 0 Refill(s) Start Date: 03/26/24 Status: Ordered Completed/Discontinued Medications Medication Drug Class(es) Dates Sig (Normalized) Sig (Original) amoxicillin 875 mg / clavulanate 125 mg oral tablet (20 sources) Penicillin-class Antibacterial Start: 01-25-2022 End: 02-04-2022 Start: 01-25-2022 End: 02-04-2022 take 1 tablet by mouth twice daily Amoxicillin-Pot Clavulanate 875-125 MG Oral Tablet 1 (one) Tablet 1 tab bid for 10 days Quantity: 20 {Tablet} Refills: 0 Ordered: 25-Jan-2022 Lizzy Long CMA Start : 25-Jan-2022 End : 04-Feb-2022 Inactive Start: 08-09-2017 End: 08-15-2017 Amoxicillin-Pot Clavulanate (Augmentin) 875-125 mg tablet Discontinued 1 {tbl} PO TWICE A DAY August 09, 2017 12:00am August 15, 2017 1:45pm Atenolol (19 sources) beta-Adrenergic Yandy Start: 05-29-2024 End: 05-29-2024 atenolol Start: 05/29/24 2:13:00 PM EST, Dose = 25 mg, = 1 tab(s), Oral, Hold if SBP (mmHg) Start Date: 05/29/24 Stop Date: 05/29/24 Status: Completed Repeat number: 1 Start: 12-16-2023 atenolol 25 mg oral tablet Dose : 25 mg = 1 tab(s), Oral, Daily, 0 Refill(s) Start Date: 03/26/24 Status: Ordered Repeat number: 1 Start: 09-27-2023 End: 10-10-2023 take 1 tablet by mouth once daily Atenolol 25 mg tablet Discontinued 25 mg PO DAILY September 27, 2023 12:00am October 10, 2023 1:58pm Start: 08-23-2022 Start: 06-21-2022 azithromycin 250 mg oral tablet (20 sources) Macrolide Antimicrobial Start: 04-01-2024 End: 05-15-2024 Azithromycin (Zithromax Z-Deni) 250 mg tablet Discontinued 0 PO .COMPLEX April 01, 2024 1:00am May 15, 2024 11:38am For 250 mg dose pack: take 500 mg today (day 1), then 250 mg for 4 days (days 2-5) PO Start: 12-03-2011 End: 12-21-2011 Start: 12-03-2011 End: 12-21-2011 ZITHROMAX Z-DENI, 250MG (Oral Tablet) 1 Tablet TAD for 0 days Quantity: 1 {Package(s)} Refills: 0 Ordered: 21-Dec-2011 Start : 03-Dec-2011 End : 21-Dec-2011 Inactive calcium carbonate 1500 mg / cholecalciferol 200 unt oral tablet (8 sources) Vitamin D Start: 01-04-2022 End: 09-27-2023 Calcium Carbonate-Vitamin D3 600 mg-5 mcg (200 unit) Tablet Discontinued 1 {tbl} PO DAILY January 04, 2022 12:00am September 27, 2023 2:14pm Start: 01-04-2022 take 1 tablet by george once daily Calcium Carbonate-Vitamin D3 Active 1 TABLET PO DAILY January 04, 2022 12:00am cefdinir 300 mg oral capsule (20 sources) Cephalosporin Antibacterial Start: 11-04-2021 End: 11-30-2021 Centrum Silver (20 sources) End: 11-19-2013 Centrum Silver 1 qd End : 19-Nov-2013 Discontinued cephalexin 500 mg oral capsule (10 sources) Cephalosporin Antibacterial Start: 04-30-2019 End: 05-10-2019 take 1 capsule by mouth every twelve hours Cephalexin 500 mg capsule Discontinued 500 mg PO Q12H 04 02April 30, 2019 1:00am May 09, 2019 1:00am May 10, 2019 1:08am chondroitin sulfates 200 mg / glucosamine hydrochloride 250 mg oral tablet (8 sources) Start: 01-04-2022 End: 09-27-2023 Glucosamine-Chondr oitin 250-200 mg Tablet Discontinued 1 {tbl} PO TWICE A DAY January 04, 2022 12:00am September 27, 2023 2:14pm give after food/meal Start: 01-04-2022 take 1 tablet by george twice daily at mealtime Glucosamine-Chondroitin Active 1 TABLET PO TWICE A DAY January 04, 2022 12:00am give after food/meal ciprofloxacin 250 mg oral tablet (2 sources) Quinolone Antimicrobial Start: 12-13-2015 take 1 tablet by mouth twice daily ciprofloxacin HCl (CIPRO) 250 mg tablet Indications: Burning with urination Take 1 tablet by mouth twice daily. 10 tablet 0 12/13/2015 Active Comment on above: Take 1 tablet by george twice daily. clotrimazole 10 mg oral lozenge (20 sources) Azole Antifungal Start: 11-10-2015 End: 11-20-2015 cyclobenzaprine hydrochloride 10 mg oral tablet (1 source) Muscle Relaxant Start: 09-13-2023 End: 09-27-2023 take 1 tablet by mouth three times daily as needed for muscle spasms Cyclobenzaprine 10 mg tablet Discontinued 10 mg PO THREE TIMES A DAY as needed for Muscle Spasm September 13, 2023 12:00am September 27, 2023 2:14pm diphenhydrAMINE hydrochloride 25 mg oral capsule (20 sources) Histamine-1 Receptor Antagonist Start: 04-05-2017 End: 09-27-2023 take 1 capsule by mouth at bedtime Diphenhydramine Hcl (Allergy Relief(Diphenhydrami n)) 25 mg capsule Discontinued 25 mg PO AT BEDTIME April 05, 2017 1:00am September 27, 2023 2:14pm Start: 08-28-2015 End: 12-08-2015 take 1 capsule by mouth every six hours as needed diphenhydrAMINE (ALER-CAP) 25 mg capsule Take 1 capsule by mouth every 6 hours as needed. 0 08/28/2015 Active End: 12-08-2015 take 1 capsule by mouth once daily DIPHENHYDRAMINE HCL, 25MG (Oral Capsule) 1 cap daily (25 MG) End : 08-Dec-2015 Discontinued Comment on above: Take 1 capsule by mo [facility] every 6 hours as needed. famciclovir 500 mg oral tablet (20 sources) Herpes Simplex Virus Nucleoside Analog DNA Polymerase Inhibitor Start: 2021 End: 2021 Fluad 65yr up(PF)45 mcg(15 mcgx3)/0.5 mL intramuscular syringe (flu (1 source) Start: 2016 End: 2016 inject 1 mL by intramuscular injection once Fluad 65yr up(PF)45 mcg(15 mcgx3)/0.5 mL intramuscular syringe (flu Discontinued 0.5 ML IM ONCE 1 April 04, 2017 12:32pm April 05, 2017 7:27pm fluticasone propionate 0.05 mg/actuat metered dose nasal spray (20 sources) Corticosteroid Start: 2023 End: 2023 take 50 ug nasal route once daily as needed Fluticasone Propionate (24 Hour Allergy Relief) 50 mcg/actuation spray,suspension Discontinued 1 NMA INTRANASAL DAILY as needed for allergy symptoms September 27, 2023 12:00am October 06, 2023 5:23pm administer into each nostril guaiFENesin 400 mg oral tablet (20 sources) Start: 11-19-2013 End: 07-08-2014 Hemp Oil (20 sources) Hemp Oil qd Acti ve hemp oil (1 source) Start: 02-06-2024 End: 02-22-2024 hemp oil Discontinued SC February 06, 2024 12:00am February 22, 2024 11:05am hydroCHLOROthiazide 12.5 mg / losartan potassium 50 mg oral tablet (10 sources) Thiazide Diuretic, Angiotensin 2 Receptor Yandy Start: 11-01-2017 End: 12-27-2017 Losartan-Hydrochlor othiazide 50-12.5 mg tablet Discontinued 1 {tbl} PO daily 60 November 01, 2017 12:00am December 27, 2017 1:33pm Start: 11-01-2017 End: 12-27-2017 take 1 tablet by mouth once daily Losartan-Hydrochlorothiazide Discontinue d 1 TABLET PO daily 60 November 01, 2017 12:00am December 27, 2017 1:33pm hydroCHLOROthiazide 12.5 mg / valsartan 160 mg oral tablet (20 sources) Thiazide Diuretic, Angiotensin 2 Receptor Yandy Start: 01-04-2022 take 0.5 tablet by mouth twice daily Valsartan-Hydrochlorothiazide Active 0.5 TABLET PO TWICE A DAY January 04, 2022 12:00am Start: 10-26-2021 Start: 04-05-2017 End: 11-01-2017 Valsartan-Hydrochlorothiazid e (Diovan Hct) 160-12.5 mg tablet Discontinued 1 {tbl} PO ONCE April 05, 2017 1:00am November 01, 2017 3:21pm Start: 08-28-2015 End: 09-27-2023 Valsartan-Hydrochlorothiazid e 160-12.5 mg tablet Discontinued 0.5 {tbl} PO TWICE A DAY January 04, 2022 12:00am September 27, 2023 2:12pm Comment on above: Take 0.5 tablets by mouth twice daily. levocetirizine dihydrochlori de 5 mg oral tablet (20 sources) Histamine-1 Receptor Antagonist Start: 03-18-2008 lisinopril 10 mg oral tablet (20 sources) Angiotensin Converting Enzyme Inhibitor Start: 04-25-2009 End: 04-25-2009 loratadine 10 mg oral capsul e (20 sources) losartan potassium 50 mg oral tablet (10 sources) Angiotensin 2 Receptor Yandy Start: 12-21-2017 End: 12-27-2017 take 1 tablet by mouth once daily Losartan 50 mg tablet Discontinued 50 mg PO DAILY 90 December 21, 2017 12:00am December 27, 2017 1:33pm meclizine hydrochloride 25 mg oral tablet (9 sources) Antiemetic Start: 01-05-2022 End: 12-16-2023 take 1 tablet by mouth three times daily as needed for dizziness Meclizine 25 mg tablet Discontinued 25 mg PO THREE TIMES A DAY as needed for dizziness October 06, 2023 12:00am December 16, 2023 8:57am meloxicam 7.5 mg oral tablet (20 sources) Nonsteroidal Anti-inflammatory Drug Start: 10-10-2023 End: 12-16-2023 take 1 tablet by mouth once daily Meloxicam 7.5 mg Tablet Discontinued 7.5 mg PO DAILY 0 October 10, 2023 12:00am December 16, 2023 8:57am Start: 08-28-2015 End: 05-24-2022 meloxicam 15 mg oral tablet Dose : 15 mg = 1 tab(s), Oral, qDay Start Date: 03/16/19 Status: Ordered Comment on above: Take 1 tablet by george th once daily. Take with food. Take 15 mg by mouth once daily. Take with food. methylPREDNISolone 4 mg oral tablet (19 sources) Corticosteroid Start: 2021 End: 2021 take 1 tablet by mouth once Methylprednisolone (Medrol (Deni)) 4 mg tablets,dose pack Discontinued 4 mg PO per package directions 06 10December 11, 2021 12:00am December 16, 2021 12:00am December 17, 2021 12:04am Start: 05-03-2019 End: 12-04-2020 take 1 tablet by mouth once Methylprednisolone (Medrol (Deni)) 4 mg tablets,dose pack Discontinued 0 PO per package directions May 03, 2019 1:00am December 04, 2020 3:49pm PO PER PKG DIR Multivitamin (Multiple Vitamins) tablet (10 sources) Start: 04-05-2017 End: 12-21-2017 take 1 tablet by mouth once daily in the morning Multivitamin (Multiple Vitamins) tablet Discontinued 1 TABLET PO EVERY MORNING April 05, 2017 7:35pm December 21, 2017 8:10am Start: 04-05-2017 End: 12-21-2017 Multivitamin (Multiple Vitam ins) tablet Discontinued 1 {tbl} PO EVERY MORNING April 05, 2017 1:00am December 21, 2017 8:10am Start: 04-05-2017 End: 12-21-2017 take 1 tablet by mouth once daily in the morning Multivitamin (Multiple Vitamins) tablet Discontinued 1 TABLET PO EVERY MORNING April 05, 2017 12:00am December 21, 2017 7:10am Start: 04-05-2017 End: 12-21-2017 take 1 tablet by mouth once daily in the morning Multivitamin (Multiple Vitamins) tablet Discontinued 1 TABLET PO EVERY MORNING April 05, 2017 1:00am December 21, 2017 8:10am Multivitamin Tablet (1 source) Start: 01-04-2022 End: 09-27-2023 Multivitamin Tablet Discontinued 1 {tbl} PO DAILY January 04, 2022 12:00am September 27, 2023 3:56pm 24 hr niacin 500 mg extended release oral tablet (20 sources) Nicotinic Acid End: 07-05-2006 End: 07-05-2006 take 2 tablets by mouth once at bedtime NIASPAN, 500MG (Oral Tablet Extended Release) 2 Q HS for 0 days Refills: 0 Ordered: 08-Mar-2008 Oriana Lee End : 05-Jul-2006 Inactive nystatin 231265 unt/ml oral suspension (10 sources) Polyene Antifungal Start: 05-03-2019 End: 12-04-2020 Nystatin 100,000 unit/mL suspension Discontinued [id number] U BUCCAL DAILY 60 May 03, 2019 1:00am December 04, 2020 3:49pm administer 1/2 of dose in each side of the mouth omeprazole 20 mg delayed release oral capsule (20 sources) Proton Pump Inhibitor Start: 01-04-2022 End: 09-27-2023 take 2 capsules by mouth at bedtime Omeprazole 20 mg capsule,delayed release(DR/EC) Discontinued 40 mg PO AT BEDTIME January 04, 2022 12:00am September 27, 2023 2:15pm Start: 01-04-2022 take 40 mg by mouth at bedtime Omeprazole Active 40 MG PO AT BEDTIME January 04, 2022 12:00am Start: 06-10-2021 End: 02-16-2022 Comment on above: Take 20 mg by mouth twice daily. Take 20 mg by mouth twice daily. Taking generic Nexium oxyCODONE hydrochloride 5 mg oral capsule (1 source) Opioid Agonist Start: 4 End: 4 take 1 capsule by mouth every six hours as needed for pain Oxycodone 5 mg capsule Discontinued 5 mg PO EVERY 6 HOURS as needed for pain 12 3 September 20, 2023 September 27, 2023 2:15pm predniSONE 50 mg oral tablet (20 sources) Start: 4 End: 4 take 1 tablet by mouth once daily Prednisone 50 mg tablet Discontinued 50 mg PO DAILY 5 5 September 20, 2023 12:00am September 27, 2023 2:15pm Start: 04-26-2022 End: 05-06-2022 Start: 04-26-2022 End: 05-06-2022 predniSONE 10 mg oral tablet 2 (two) Tablet for 5 days 1 tab for 5 days with food in am for 10 days Quantity: 15 {Tablet} Refills: 0 Ordered: 26-Apr-2022 Fast DO, Barbara A Fast DO, Barbara A Start : 26-Apr-2022 End : 06-May-2022 Inactive Comments: take with food Start: 03-18-2020 End: 03-30-2020 predniSONE 10 MG Oral Tablet 3 (three) Tablet for 4 days 2 for 4 days 1 for 4 days with food in am for 12 days Quantity: 24 {Tablet} Refills: 0 Ordered: 18-Mar-2020 Fast DO, Barbara A Fast DO, Barbara A Start : 18-Mar-2020 End : 30-Mar-2020 Inactive Comments: take with food Start: 04-15-2019 End: 04-30-2019 take 4 tablets by mouth once daily, then take 3 tablets by mouth once daily, then take 2 tablets by mouth once daily, then take 1 tablet by mouth once daily, then take 1 tablet by mouth every other day Prednisone 10 MG tablet Discontinued 10 mg PO DIRECTED April 15, 2019 1:00am April 30, 2019 7:38am Take 4 tablets daily for 3 days, then 3 daily for 3 days, then 2 daily for 3 days, then 1 a day for 3 days then 1 QOD for 3 doses. Start: 08-15-2017 End: 12-21-2017 take 2 tablets by mouth once daily at mealtime Prednisone 20 mg tablet Discontinued 40 mg PO daily August 15, 2017 12:00am December 21, 2017 8:10am administer with food or milk Start: 08-15-2017 End: 12-21-2017 take 40 mg by mouth once daily at mealtime Prednisone Discontinued 40 MG PO daily August 15, 2017 12:00am December 21, 2017 8:10am administer with food or milk Start: 12-21-2011 End: 12-28-2011 take 3 tablets by mouth once daily at mealtime PREDNISONE, 10MG (Oral Tablet) 3 (three) Tablet daily for 7 days Quantity: 21 {Tablet} Refills: 0 Ordered: 21-Dec-2011 Elva Espinoza CNP Start : 21-Dec-2011 End : 28-Dec-2011 Inactive Comments: take with food Comment on above: take with food raNITIdine 150 mg oral tablet (2 sources) Histamine-2 Receptor Antagonist Start: 08-28-19 16 take 1 tablet by mouth twice daily ranitidine (ZANTAC) 150 mg tablet Take 1 tablet by mouth twice daily. 30 tablet 0 08/28/2015 Active Comment on above: Take 1 tablet by george twice daily. rosuvastatin calcium 5 mg oral tablet (20 sources) HMG-CoA Reductase Inhibitor Start: 06-10-19 End: 09-27-19 Rosuvastatin (Crestor) 5 mg Tablet Discontinued 5 mg PO MOWEFR January 04, 2022 12:00am September 27, 2023 2:15pm sildenafil 50 mg oral tablet (20 sources) Phosphodiesterase 5 Inhibitor Start: 02-06-20 End: 02-22-20 take 1 tablet by mouth once daily Sildenafil 50 mg tablet Discontinued 50 mg PO daily February 06, 2024 12:00am February 22, 2024 11:05am Start: 09-27-2023 End: 10-06-2023 take 1 tablet by mouth once daily Sildenafil 50 mg tablet Discontinued 50 mg PO DAILY September 27, 2023 12:00am October 06, 2023 9:00am Start: 07-12-2022 Start: 05-24-2022 THERAPEUTIC MULTIVITAMIN TAB (2 sources) Start: 11-17-2005 THERAPEUTIC MU LTIVITAMIN TAB .QD 0 11/17/2005 Active Comment on above: .QD traMADol hydrochloride 50 mg oral tablet (20 sources) Opioid Agonist Start: 05-30-2024 Ultram 50 mg o ral tablet See Instructions, 1-2 tab(s) Oral q6hr, 0 Refill(s), 86.3 Start Date: 05/30/24 Status: Ordered Repeat number: 1 Start: 02-22-2024 take 1 tablet by george four times daily as needed Tramadol 50 mg tablet Active 50 mg PO 4 TIMES DAILY as needed February 22, 2024 1:00am Start: 03-16-2019 End: 12-04-2020 take 1 tablet by mouth once daily as needed for pain Tramadol 50 mg tablet Discontinued 50 mg PO DAILY as needed for Pain Or Fever April 09, 2019 11:23am December 04, 2020 3:51pm traZODone hydrochloride 50 mg oral tablet (4 sources) Serotonin Reuptake Inhibitor Start: 09-27-2023 End: 10-06-2023 take 1 tablet by mouth at bedtime as needed Trazodone 50 mg tablet Discontinued 50 mg PO AT BEDTIME as needed for insomnia September 27, 2023 12:00am October 06, 2023 9:00am Start: 12-08-2022 ubidecarenone 100 mg oral capsule (8 sources) Start: 01-04-2022 End: 09-27-2023 Coenzyme Q10 (Co Q-10) 100 mg Capsule Discontinued 100 mg PO MOWEJanuary 04, 2022 12:00am September 27, 2023 2:14pm valACYclovir 1000 mg oral tablet (9 sources) Herpesvirus Nucleoside Analog DNA Polymerase Inhibitor, Herpes Simplex Virus Nucleoside Analog DNA Polymerase Inhibitor, Herpes Zoster Virus Nucleoside Analog DNA Polymerase Inhibitor Start: 12-11-2021 End: 12-18-2021 Valacyclovir 1 gram tablet Discontinued 1000 mg PO THREE TIMES A DAY 05 11December 11, 2021 12:00am December 17, 2021 12:00am December 18, 2021 12:04am Start: 12-11-2021 End: 12-18-2021 take 1000 mg by mouth three times daily Valacyclovir Discontinued 1000 MG PO THREE TIMES A DAY 05 11December 11, 2021 12:00am December 18, 2021 12:04am Problems Active Problems Problem Classification Problem Date Documented Date Episodic/Chronic Abdominal pain (10 sources) Right inguinal pain; Translations: [Right lower quadrant pain] 01-13-2022 Episodic Allergic reactions (20 sources) Allergic reaction; Translations: [Contact dermatitis due to poison owen] Resolved: 3 07-17-2019 Episodic Anxiety disorders (1 source) Anxiety; Translations: [Anxiety disorder, unspecified] 02-06-2024 Chronic Cardiac dysrhythmias (20 sources) Multiple premature ventricular complexes; Translations: [PVC's (premature ventricular contractions)] Onset: 4 05-24-2022 Chronic Cardiac dysrhythmias (1 source) Palpitations; Translations: [Palpitations] 02-06-2024 Episodic Conditions associated with dizziness or vertigo (11 sources) Vertigo; Translations: [Dizziness and giddiness] Episodic Coronary atherosclerosis and other heart disease (3 sources) Coronary arteriosclerosis; Translations: [Atherosclerotic heart disease of [place] coronary artery without angina pectoris] Onset: 5 02-06-2024 Chronic Diabetes mellitus without complication (20 sources) Impaired fasting glucose; Translations: [Impaired fasting glycaemia] Resolved: 4 12-01-2015 Episodic Comment on above: resolved Disorders of lipid metabolism (20 sources) Other and unspecified hyperlipidemia; Translations: [Hyperlipidemia] 10-09-2019 Chronic Comment on above: chronic stable-harlan nue present regimen he didnt have labs d one yet so will order rosuvastatin qod wit h coq10 he thinks he jaymie b eden with diet nad ex as not at goal and doesnt want to increase improved control con tinue statin diet and ex discussed exercising routinely because he is not and cut back on animal products- go to 5 days a week on rosuvastatin Esophageal disorders (20 sources) Gastroesophageal reflux disease; Translations: [GERD (gastroesophageal reflux disease)] Onset: 5 07-17-2019 Chronic Comment on above: chronic stable-harlan nue present regimen Essential hypertension (20 sources) Hypertensive disorder; Translations: [Hypertension] Onset: 4 07-17-2019 Chronic Comment on above: chronic stable-harlan nue present regimen Fever of unknown origin (20 sources) Fever; Translations: [Fever] Resolved: 3 04-25-2022 Episodic Comment on above: think likely covid b ased onhis exposure- so quarantine -he doesnt want to take paaxlovid we discussed - vit c vit d and zinc callworsening or peristent sx Fluid and electrolyte disorders (20 sources) Hypokalemia; Translations: [Hypokalemia] Episodic Genitourinary symptoms and ill-defined conditions (20 sources) Dysuria; Translations: [Painful urination] Resolved: 3 07-17-2019 Episodic Headache; including migraine (1 source) Headache; Translations: [Headache] 10-06-2023 Episodic Hyperplasia of prostate (1 source) Benign prostatic hyperplasia; Translations: [Benign prostatic hyperplasia without lower urinary tract symptoms] 02-06-2024 Chronic Immunizations and screening for infectious disease (20 sources) Need for prophylactic vaccination and inoculation against influenza; Translations: [Pneumococcal vaccination given] Resolved: 3 07-17-2019 Episodic Comment on above: looks like lupus Malaise and fatigue (20 sources) Fatigue; Translations: [Fatigue] Resolved: 0 07-17-2019 Episodic Mycoses (20 sources) Candidiasis; Translations: [Candidiasis] 07-17-2019 Episodic Comment on above: tongue Nausea and vomiting (1 source) Nausea and vomiting; Translations: [Nausea with vomiting, unspecified] Onset: 4 Episodic Nutritional deficiencies (20 sources) Cobalamin deficiency; Translations: [B12 deficiency] 04-28-2020 Episodic Comment on above: chronic stable-harlan nue present regimen get level Occlusion or stenosis of precerebral arteries (20 sources) Atherosclerosis of right carotid artery; Translations: [Carotid artery plaque, right] Onset: 4 02-18-2021 Chronic Comment on above: risk factor modifica tion- due in nov risk factor modifica tion risk factor modifica tion- Open wounds of extremities (20 sources) Disorder of lower extremity; Translations: [Wound of left leg] Resolved: 2 11-04-2021 Episodic Comment on above: healing tdap up to d ate Osteoarthritis (20 sources) Arthritis; Translations: [Inflammatory arthritis] Onset: 5 10-24-2019 Chronic Comment on above: he is doign well on meds and following with Dr Michelle nicolas on hydroxychl oroquine symptoms controlled with meloxicam- we discussed side effects of terminal computer operator use chronic stable-harlan nue present regimen Other aftercare (1 source) Aftercare following joint replacement surgery; Translations: [Aftercare following joint replacement surgery] Onset: 5 Chronic Other and ill-defined cerebrovascular disease (1 source) Cerebellar stroke syndrome; Translations: [Cerebellar stroke syndrome] Chronic Other and ill-defined cerebrovascular disease (1 source) Cerebellar stroke syndrome; Translations: [Acute, but ill-defined, cerebrovascular disease] Chronic Other bone disease and musculoskeletal deformities (20 sources) Osteopenia; Translations: [Osteopenia] 01-19-2022 Episodic Comment on above: get secondary workup and then discussed med options pending results and side effects discussed weight bearing exerc ise bone density up to date Other circulatory disease (20 sources) Easy bruising; Translations: [Easy bruising] Resolved: 3 Episodic Comment on above: believe secondary to his plaquenil- he will discuss with his forensic analyst- maybe tryonce a day and see if helps Other congenital anomalies (2 sources) Porokeratosis; Translations: [Other specified congenital malformations of skin] Chronic Other connective tissue disease (1 source) Presence of left artificial shoulder joint; Translations: [Presence of left artificial shoulder joint] Onset: 5 Chronic Other connective tissue disease (1 source) Pain of toe of left foot; Translations: [Pain in left toe(s)] Episodic Other connective tissue disease (1 source) Pain of toe of right foot; Translations: [Pain in right toe(s)] Episodic Other connective tissue disease (1 source) Other symptoms and signs involving the musculoskeletal system; Translations: [Other symptoms and signs involving the musculoskeletal system] Onset: 5 Episodic Other connective tissue disease (1 source) Rotator cuff arthropathy of left shoulder; Translations: [Unspecified rotator cuff tear or rupture of left shoulder, not specified as traumatic] 01-18-2024 Episodic Other fractures (20 sources) Compression fracture of lumbar spine; Translations: [Lumbar compression fracture] 12-29-2021 Episodic Other fractures (1 source) Fracture of twelfth thoracic vertebra; Translations: [Wedge compression fracture of T11-T12 vertebra, initial encounter for closed fracture] 12-16-2023 Episodic Other injuries and conditions due to external causes (20 sources) Tear of skin; Translations: [Skin tear of right upper extremity] Resolved: 2 01-10-2020 Episodic Comment on above: wet to dry - will stevan otto Other lower respiratory disease (20 sources) Chronic cough; Translations: [Chronic cough] Resolved: 9 12-01-2015 Episodic Other lower respiratory disease (20 sources) Cough; Translations: [Cough] Resolved: 0 07-17-2019 Episodic Comment on above: take flonase in am a nd claritin at night daily for week and call with update on how cough - if not improve get pfts - Other male genital disorders (20 sources) Male erectile dysfunction, unspecified; Translations: [Erectile dysfunction] 07-12-2022 Chronic Other male genital disorders (20 sources) Unspecified disorder of prostate; Translations: [Unspecified disorder of prostate] Resolved: 2 07-17-2019 Episodic Comment on above: psa improving Other nervous system disorders (20 sources) Neuropathy; Translations: [Neuropathy] 03-18-2020 Chronic Comment on above: better with taking b 12 chronic stable-harlan nue present regimen Other nervous system disorders (1 source) Cervical myelopathy; Translations: [Disease of spinal cord, unspecified] 10-12-2023 Chronic Other nervous system disorders (1 source) Ataxia; Translations: [Ataxia, unspecified] 10-06-2023 Episodic Other non-traumatic joint disorders (1 source) Other specific arthropathies, not elsewhere classified, left shoulder; Translations: [Other specific arthropathies, not elsewhere classified, left shoulder] Onset: 4 Chronic Other non-traumatic joint disorders (20 sources) Joint pain; Translations: [Joint pain] Resolved: 0 07-17-2019 Episodic Comment on above: reviewed old records from hospital and previous physician- looks like had mary positive and dsdna positive along with high esr and crp - Other non-traumatic joint disorders (20 sources) Pain in joint, shoulder region; Translations: [Shoulder joint pain, unspecified laterality] Resolved: 0 12-01-2015 Episodic Other non-traumatic joint disorders (20 sources) Shoulder pain; Translations: [Shoulder pain, bilateral] Resolved: 2 02-12-2021 Episodic Other non-traumatic joint disorders (12 sources) Pain in right shoulder; Translations: [Shoulder pain, bilateral] Resolved: 2 03-15-2022 Episodic Other nutritional; endocrine; and metabolic disorders (20 sources) Body mass index 25-29 - overweight; Translations: [BMI 26.0-26.9,adult] Resolved: 1 07-17-2019 Chronic Other nutritional; endocrine; and metabolic disorders (20 sources) Body mass index 25-29 - overweight; Translations: [BMI 26.0-26.9,adult] Resolved: 2 04-28-2020 Episodic Other nutritional; endocrine; and metabolic disorders (20 sources) Overweight in adulthood with body mass index of 25 or more but less than 30; Translations: [Body mass index 26.0-26.9, adult] Resolved: 2 01-02-2020 Episodic Other screening for suspected conditions (not mental disorders or infectious disease) (20 sources) Blood chemistry abnormal; Translations: [Partial thromboplastin time increased] Resolved: 9 12-01-2015 Episodic Other skin disorders (20 sources) Eruption; Translations: [Rash and other nonspecific skin eruption] Resolved: 3 12-01-2015 Episodic Other skin disorders (20 sources) Night sweats; Translations: [Night sweats] Resolved: 2 06-10-2021 Episodic Comment on above: work up neg- will hang yap seems better Other skin disorders (20 sources) Multiple actinic keratoses; Translations: [Actinic keratoses] 03-15-2022 Episodic Comment on above: he is seeing anatoliy f or his ear today Other upper respiratory disease (20 sources) Pain in throat Episodic Other upper respiratory infections (20 sources) Chronic sinusitis; Translations: [Sinusitis, chronic] 07-17-2019 Chronic Other upper respiratory infections (20 sources) Sore throat symptom; Translations: [Sore throat] 07-17-2019 Episodic Comment on above: take zyrte at night call with update on tuesday Peripheral and visceral atherosclerosis (1 source) Peripheral vascular disease, unspecified; Translations: [Peripheral vascular disease, unspecified] Onset: 5 Chronic Residual codes; unclassified (1 source) Hypersomnia, unspecified; Translations: [Hypersomnia, unspecified] Onset: 5 Chronic Residual codes; unclassified (20 sources) H/O Spinal surgery; Translations: [Laminectomy] 07-17-2019 Episodic Comment on above: Lumbar Residual codes; unclassified (20 sources) Needs influenza immunization; Translations: [Need for prophylactic vaccination and inoculation against influenza] 12-11-2015 Episodic Residual codes; unclassified (17 sources) Requires diphtheria, tetanus and pertussis vaccination; Translations: [Need for Tdap vaccination (Renamed from Need for [id number] ussis (Tdap) vaccine, adult/adolescent)] 10-24-2019 Episodic Residual codes; unclassified (19 sources) Bruises easily; Translations: [Easy bruising] 10-24-2019 Episodic Comment on above: believe secondary to his plaquenil- he will discuss with his forensic analyst- maybe tryonce a day and see if helps Residual codes; unclassified (20 sources) Non-smoker; Translations: [Nonsmoker] 04-28-2020 Episodic Residual codes; unclassified (20 sources) Body mass index 20-24 - normal; Translations: [BMI 24.0-24.9, adult] 06-10-2021 Episodic Residual codes; unclassified (7 sources) Sleep disorder; Translations: [Sleep disorder] 12-08-2022 Episodic Residual codes; unclassified (1 source) Pain; Translations: [Pain, unspecified] 10-06-2023 Episodic Skin and subcutaneous tissue infections (20 sources) Cellulitis of leg, excluding foot; Translations: [Cellulitis of left lower extremity without foot] Resolved: 2 11-04-2021 Episodic Spondylosis; intervertebral disc disorders; other back problems (20 sources) Degeneration of lumbar intervertebral disc; Translations: [DDD (degenerative disc disease), lumbar] Onset: 4 12-29-2021 Chronic Comment on above: monitor at this poin t pain better discussed symptons to watch for monitor as pain impr merissa chronic stable-harlan nue present regimen Spondylosis; intervertebral disc disorders; other back problems (20 sources) Neck pain; Translations: [Neck pain] Resolved: 2 02-12-2021 Episodic Sprains and strains (12 sources) Muscle strain; Translations: [Strain of muscle, fascia and tendon of pelvis, initial encounter] Onset: 4 01-13-2022 Episodic Systemic lupus erythematosus and connective tissue disorders (20 sources) Systemic lupus erythematosus; Translations: [Lupus (systemic lupus erythematosus)] Resolved: 0 07-17-2019 Chronic Comment on above: has appt with rheum- meets multiple critersi- had positive mary and postiive ds dna x2- elevated crp at 90 , anemia, fatigue and joint pain and lack of appetite Unclassified (20 sources) Unclassified (20 sources) male health maintenance- make referral for colonoscopy Resolved: 9 12-01-2015 Unclassified (20 sources) elevating psa Resolved: 0 12-11-2015 Unclassified (20 sources) NONSPECIFIC FINDINGS ON EXAMINATION OF BLOOD, OTHER ABNORMAL BLOOD CHEMISTRY (790.6) Unclassified (20 sources) atypical skin lesion Resolved: 0 12-01-2015 Unclassified (20 sources) Non-smoker; Translations: [Nonsmoker] 07-17-2019 Unclassified (20 sources) Pain in joint involving shoulder region (719.41) Unclassified (20 sources) SYMPTOM, RASH, OTH NONSPECIFIC SKIN ERUPTION (782.1) Unclassified (20 sources) BMI 26.0-26.9,adult Unclassified (20 sources) CONTACT DERMATITIS D/T POISON OWEN, (692.6) Unclassified (20 sources) BMI 25.0-25.9,adult Unclassified (20 sources) Inflammatory arthritis Unclassified (20 sources) B12 deficiency Unclassified (20 sources) Carotid artery plaque, right Unclassified (20 sources) BMI 24.0-24.9, adult Unclassified (1 source) Low back pain, unspecified; Translations: [Low back pain, unspecified] Onset: 4 Viral infection (20 sources) Viral infection, unspecified; Translations: [Viral disease] Resolved: 3 07-17-2019 Episodic Comment on above: improved Past or Other Problems Problem Classification Problem Date Documented Date Episodic/Chronic Gastritis and duodenitis (2 sources) Acute gastritis; Translations: [Acute gastritis without bleeding] Onset: 01-13-2006 01-13-2006 Episodic Other connective tissue disease (2 sources) Unspecified rotator cuff tear or rupture of left shoulder, not specified as traumatic; Translations: [Unspecified rotator cuff tear or rupture of left shoulder, not specified as traumatic] Onset: 01-31-2024 Episodic Other lower respiratory disease (1 source) Other nonspecific abnormal finding of lung field; Translations: [Other nonspecific abnormal finding of lung field] Onset: 05-13-2024 Episodic Other non-traumatic joint disorders (2 sources) Soft tissue lesion of shoulder region; Translations: [Other specified joint disorders, unspecified shoulder] Onset: 05-15-2002 08-12-2003 Episodic Other non-traumatic joint disorders (1 source) Pain in left shoulder; Translations: [Pain in left shoulder] Onset: 01-23-2024 Episodic Other screening for suspected conditions (not mental disorders or infectious disease) (19 sources) Elevated C-reactive protein; Translations: [CRP elevated] 07-17-2019 Comment on above: repeat- i think auto immune related - will followup on all his cancer prevention screening- get last office visit fromhis urologist to see about psa-also sound s like had eye exam to make sure no signs of temporal arteritis- he didnt have shouldr sx to make me think of PMR and no headache or vision change Pneumonia (except that caused by tuberculosis or sexually transmitted disease) (19 sources) Pneumonia (except that caused by tuberculosis or sexually transmitted disease) Systemic lupus erythematosus and connective tissue disorders (20 sources) Systemic lupus erythematosus and connective tissue disorders Unclassified (20 sources) EKG changes in precordial leads - Hx of stress neg - EF 48% 07-17-2019 Unclassified (20 sources) Screening status; Translations: [Encounter for screening for malignant neoplasm of colon (Renamed from Special screening for malignant neoplasms, colon)] 07-17-2019 Unclassified (20 sources) Patient encounter status; Translations: [Physical exam WITHOUT abnormal findings (Renamed from Encounter for routine adult health examination without abnormal findings)] 07-17-2019 Unclassified (20 sources) Unspecified Diagnosis 07-17-2019 Unclassified (20 sources) Elevated antinuclear antibody (MARY) level Unclassified (20 sources) CRP elevated Unclassified (20 sources) Allergic reaction, initial encounter Unclassified (20 sources) Painful urination Unclassified (20 sources) Body mass index 26.0-26.9, adult Unclassified (20 sources) PRE-OPERATIVE EXAMINATION, UNSPECIFIED (V72.84) Unclassified (20 sources) SCREENING FOR PROSTATE CA (V76.44) Unclassified (20 sources) [facility] WELLNESS EXAM 10-24-2019 Unclassified (20 sources) Need for Tdap vaccination (Renamed from Need for zeruiovtyf-rrkrjra-zh rtussis (Tdap) vaccine, adult/adolescent) Unclassified (20 sources) Abnormal partial thromboplastin time (PTT) Unclassified (20 sources) Skin tear of right upper extremity Unclassified (15 sources) Exposure to COVID-19 virus Unclassified (20 sources) Shoulder pain, bilateral Unclassified (13 sources) DIFFICULTY AMBULATING Unclassified (10 sources) Diffuse joint pain 01-13-2022 Unclassified (6 sources) Screening for prostate cancer Unclassified (5 sources) Wound of left leg Unclassified (5 sources) Cellulitis of left lower extremity without foot Unclassified (9 sources) lumbarectomy 11-05-2021 Comment on above: L4-L5 , done in [facility]. Viral infection (20 sources) Disease caused by 2019-nCoV Results Test Name Value Interpretation Reference Range Facility Arterial study reportOrdered By: Rob Sims on 08-20-2024 Noninvasive arteriosclerosis study report [facility] [address] [place] [address] Lower Ext Art Exam w/ Exercise 08/20/24 0958 MR#: [id number] Acct: [id number] Name: LIA GALLEGOS Rep #:[id number] : 1940 83 From: Rob Sims MD Attending Dr: RALPH SpanglerC Status: REG CLI Ordering Dr: Arpit Manuel CLAIMS VICE PRESIDENT-C Date: 08/20/24 Location: [facility] Sex: M C Admitted: Reason For Study Reason For Study: PVD Procedure A bilateral lower extremity continuous wave Doppler with analog waveform analysis,segmental pressures,and ankle brachial indexes with exercise. Left Segmental Pressures Left brachial= 120mmHg. Left posterior tibial artery = 177mmHg. Left dorsalis pedis artery = 155mmHg. Left digit = 117 mmHg. The left posterior tibial artery waveforms are triphasic. The left dorsalis pedis waveforms are triphasic. Right Segmental Pressures Right brachial= 128mmHg. Right posterior tibial artery = 177mmHg. Right dorsalispedis artery = 144mmHg. Right digit = 90 mmHg. The right posterior tibial artery waveforms are triphasic. The right dorsalis pedis waveforms are triphasic. Indices The right ankle brachial index by the posterior tibial artery is 1.38. The rightankle brachial index by the dorsalis pedis is 1.13. The right digital-brachial index is 0.70. The right ankle brachial index by the posterior tibial artery post exercise is 1.43. The left ankle brachial index by the dorsalis pedis is 1.21. The left ankle brachial index by the posterior tibial artery is 1.38. The left digital-brachial index is 0.91. The left posterior tibial artery index post exercise is 1.46. VL/Lower Ext Art Exam w/ Exercise Interpretation Summary Triphasic Doppler waveforms are noted at ankle level bilaterally. Pulse-volume recordings appear satisfactory at all levels bilaterally. Resting ankle-brachial indices are normal bilaterally. Digital-brachial indices are normal bilaterally. The patient ambulated at 2 MPH at a 5% incline for 5 minutes, following which ankle pressures augmented bilaterally, a normal physiological response. There is no evidence of significant arterial occlusive disease in the lower extremities bilaterally. Ordering Physician: Arpit Manuel Referring Physician: ARPIT MANUEL CLAIMS VICE PRESIDENT Performed By: Jacek Dutton T 08/20/242143 Date _ Rob Sims MD CC: CLAIMS VICE PRESIDENT-C Arpit Manuel ~ Date Dictated: 08/20/24957 Date Transcribed: 08/20/242143 Clinical Supervisor: Signed [facility] Other Lower Ext Art Exam w/ Exerci neelam 08-20-2024 Lower Ext Art Exam w/ Exercise [facility] [address] [place] [id number] Lower Ext Art Exam w/ Exercise 08/20/24957 MR#: [id number] Acct: [id number] Name: LIA GALLEGOS Rep #: [id number] : 1940 83 From: Rob Sims MD Attending Dr: ENRIKE Spangler Status: REG CLI Ordering Dr: Arpit Manuel CLAIMS VICE PRESIDENTSteffanieC Date: 08/20/24 Location: [facility] Sex: M C Admitted: Reason For Study Reason For Study: PVD Procedure A bilateral lower extremity continuous wave Doppler with analog waveform analysis,segmental pressures,and ankle brachial indexes with exercise. Left Segmental Pressures Left brachial= 120mmHg. Left posterior tibial artery = 177mmHg. Left dorsalis pedis artery = 155mmHg. Left digit = 117 mmHg. The left posterior tibial artery waveforms are triphasic. The left dorsalis pedis waveforms are triphasic. Right Segmental Pressures Right brachial= 128mmHg. Right posterior tibial artery = 177mmHg. Right dorsalis pedis artery = 144mmHg. Right digit = 90 mmHg. The right posterior tibial artery waveforms are triphasic. The right dorsalis pedis waveforms are triphasic. Indices The right ankle brachial index by the posterior tibial artery is 1.38. The right ankle brachial index by the dorsalis pedis is 1.13. The right digital-brachial index is 0.70. The right ankle brachial index by the posterior tibial artery post exercise is 1.43. The left ankle brachial index by the dorsalis pedis is 1.21. The left ankle brachial index by the posterior tibial artery is 1.38. The left digital-brachial index is 0.91. The left posterior tibial artery index post exercise is 1.46. VL/Lower Ext Art Exam w/ Exercise Interpretation Summary Triphasic Doppler waveforms are noted at ankle level bilaterally. Pulse-volume recordings appear satisfactory at all levels bilaterally. Resting ankle-brachial indices are normal bilaterally. Digital-brachial indices are normal bilaterally. The patient ambulated at 2 MPH at a 5% incline for 5 minutes, following which ankle pressures augmented bilaterally, a normal physiological response. There is no evidence of significant arterial occlusive disease in the lower extremities bilaterally. Ordering Physician: Arpit Manuel Referring Physician: ARPIT MANUEL CLAIMS VICE PRESIDENT Performed By: Jacek Dutton, T 08/20/242143 Date Rob Sims MD CC: CLAIMS VICE PRESIDENT-C Arpit Manuel Date Dictated: 08/20/2458 Date Transcribed: 08/20/242143 Clinical Supervisor: Signed Normal [facility] .Auto Diffon 05-30-2024 Basophil, Absolute 0.0 10 3/mcL Normal 0.0-0.2 [facility] Comment on above: Performed By: #### A MARYANN ABSGEL #### [address] [address] Basophils/100 WBC (Bld) 0.1 % Normal 0.0-2.5 [facility] Comment on above: Performed By: #### A MARYANN ABSGEL #### [address] [address] Eosinophil, Absolute 0.0 10 3/mcL Normal 0.0-0.7 [facility] Comment on above: Performed By: #### A MARYANN ABSGEL #### [address] [address] Eosinophils/100 WBC (Bld) 0.0 % Normal 0.0-7.0 [facility] Comment on above: Performed By: #### A MARYANN ABSGEL #### [address] [address] Lymphocyte, Absolute 0.8 10 3/mcL Low 0.9-4.3 [facility] Comment on above: Performed By: #### A MARYANN ABSGEL #### [address] [address] Lymphocytes/100 WBC (Bld) 5.6 % Low 20.0-40.0 [facility] Comment on above: Performed By: #### A MARYANN ABSGEL #### [address] [address] Monocyte, Absolute 1.1 10 3/mcL Normal 0.1-1.4 [facility] Comment on above: Performed By: #### A MARYANN ABSGEL #### [address] [address] Monocytes/100 WBC (Bld) 7.6 % Normal 2.0-13.0 [facility] Comment on above: Performed By: #### A MARYANN ABSGEL #### [address] [address] Neutrophils/100 WBC (Bld) 86.7 % High 50.0-75.0 [facility] Comment on above: Performed By: #### A ROGER WOLF #### [address] [address] .GFRon 05-30-2024 Estimated Glomerular Filtration Rate 71 ml/min/1.73sqm Normal [facility] Comment on above: Result Comment: Stages of Chronic Kidney Disease (CKD) Stage Description eGFR(ml/min/1.73 sq.m.) CKD 1 Normal kidney function or >=90 normal kindney function with possible kidney damage (ex. Proteinuria) CKD 2 Kidney damage with mild loss 60-89 of kidney function CKD 3a Mild to moderate loss of kidney 45-59 function CKD 3b Moderate to severe loss of 30-44 of kindey function CKD 4 Severe loss of kidney function 15-29 CKD 5 Kidney failure <15 Note: (go live 2024) the eGFR calculation was updated to the 2020 CKD-EPI creatinine equation without a race factor to calculate the eGFR results. Performed By: #### A ROGER WOLF #### [address] [address] .NEUABSon 05-30-2024 Neutrophil, Absolute 12.5 10 3/mcL High 2.3-8.1 [facility] Comment on above: Performed By: #### ROGER CUTLER #### [address] [address] BMPon 05-30-2024 BUN/Creatinine Ratio 24 ratio Normal 7-27 [facility] Comment on above: Performed By: #### ROGER CUTLER #### [address] [address] Calcium [Mass/Vol] 8.3 mg/dL Low 8.4-10.[address] [facility] Comment on above: Performed By: #### ROGER CUTLER #### [address] [address] Chloride [Moles/Vol] 101 mmol/L Normal 98-107 [facility] Comment on above: Performed By: #### ROGER CUTLER #### [address] [address] CO2 [Moles/Vol] 28 mmol/L Normal 23-31 [facility] Comment on above: Performed By: #### A RAINE WOLFGEL #### [address] [address] Creatinine [Mass/Vol] 1.04 mg/dL Normal 0.70-1.30 [facility] Comment on above: Result Comment: Test ing performed on Siemens Dimension EXL analyzer using a modified kinetic Alberto technique. Performed By: #### A RAINE WOLFGEL #### [address] [address] Electrolyte Balance 6.0 mEq/L Normal 4.0-15.0 [facility] Comment on above: Performed By: #### A MARYANN ABSGEL #### [address] [address] Glucose [Mass/Vol] 126 mg/dL High 83-[address] [facility] Comment on above: Performed By: #### A MARYANN ABSGEL #### [address] [address] Potassium [Moles/Vol] 4.0 mmol/L Normal 3.5-5.1 [facility] Comment on above: Performed By: #### A MARYANN ABSGEL #### [address] [address] Sodium [Moles/Vol] 135 mmol/L Low 136-[address] [facility] Comment on above: Performed By: #### A MARYANN ABSGEL #### [address] [address] Urea nitrogen [Mass/Vol] 25 mg/dL High 7-18 [facility] Comment on above: Performed By: #### A MARYANN ABSGEL #### [address] [address] CBCon 05-30-2024 Erythrocyte distribution width (RBC) [Ratio] 12.3 % Normal 11.5-15.5 [facility] Comment on above: Performed By: #### A RAINE WOLFGEL #### [address] [address] Hematocrit (Bld) [Volume fraction] 37.5 % Low 40.0-52.0 [facility] Comment on above: Performed By: #### A MARYANN ABSGEL #### [address] [address] Hgb 13.1 G/dL Normal 13.0-17.5 [facility] Comment on above: Performed By: #### A RAINE WOLFGEL #### [address] [address] MCH (RBC) [Entitic mass] 31.7 pg Normal 27.0-33.0 [facility] Comment on above: Performed By: #### A RAINE WOLFGEL #### [place] [address] MCHC 34.9 G/dL Normal 32.0-36.0 [facility] Comment on above: Performed By: #### A RAINE WOLFGEL #### [address] [address] MCV (RBC) [Entitic vol] 90.7 fL Normal 81.0-100.0 [facility] Comment on above: Performed By: #### A MARYANN ABSGEL #### [address] [address] Platelet 208 10 3/mcL Normal 150-450 [facility] Comment on above: Performed By: #### A MARYANN ABSGEL #### [address] [address] Platelet mean volume (Bld) [Entitic vol] 7.9 fL Normal 6.4-10.5 [facility] Comment on above: Performed By: #### A MARYANN ABSGEL #### [address] [address] RBC 4.13 10 6/mcL Low 4.50-6.00 [facility] Comment on above: Performed By: #### A ROGER WOLF #### [facility] [address] [place], [place] [address] WBC 14.4 10 3/mcL High 4.5-10.8 [facility] Comment on above: Performed By: #### A ROGER WOLF #### [facility] [address] [place], [place] [address] LABORATORYOrdered By: SYSTEM SYSTEM on 05-30-2024 Basophils (Bld) [#/Vol] 0.0 103/mcL Normal 0.0 - 0.2 10^3/mcL AO Workflow SS Basophils/100 WBC (Bld) 0.1 % Normal 0.0 - 2.5 % AO Workflow SS Calcium [Mass/Vol] 8.3 mg/dL Low 8.4 - 10. 2 mg/dL AO ADM SS Chloride [Moles/Vol] 101 mmol/L Normal 98 - 10 7 mmol/L AO ADM SS CO2 [Moles/Vol] 28 mmol/L Normal 23 - 31 mmol/L AO ADM SS Creatinine [Mass/Vol] 1.04 mg/dL Normal 0.70 - 1.30 mg/dL AO ADM SS Comment on above: Interpretive Data: T esting performed on Siemens Dimension EXL analyzer using a modified kinetic Alberto technique. Electrolyte Balance 6.0 mEq/L Normal 4.0 - 15 .0 mEq/L AO ADM SS Eosinophil, Absolute 0.0 103/mcL Normal 0.0 - 0 .7 10^3/mcL AO Workflow SS Eosinophils/100 WBC (Bld) 0.0 % Normal 0.0 - 7.0 % AO Workflow SS Erythrocyte distribution width (RBC) [Ratio] 12.3 % Normal 11.5 - 15.5 % AO Workflow SS Estimated Glomerular Filtration Rate 71 ml/min/1.73sqm Invalid Interpretation Code AO Chemistry S Comment on above: Interpretive Data: Stages of Chronic Kidney Disease (CKD) Stage Description eGFR(ml/min/1.73 sq.m.) CKD 1 Normal kidney function or >=90 normal kindney function with possible kidney damage (ex. Proteinuria) CKD 2 Kidney damage with mild loss 60-89 of kidney function CKD 3a Mild to moderate loss of kidney 45-59 function CKD 3b Moderate to severe loss of 30-44 of kindey function CKD 4 Severe loss of kidney function 15-29 CKD 5 Kidney failure <15 Note: (go live 2024) the eGFR calculation was updated to the 2020 CKD-EPI creatinine equation without a race factor to calculate the eGFR results. Glucose [Mass/Vol] 126 mg/dL High 83 - 110 mg/dL AO ADM SS Hematocrit (Bld) [Volume fraction] 37.5 % Low 40.0 - 52.0 % AO Workflow SS Hemoglobin (Bld) [Mass/Vol] 13.1 G/dL Normal 13.0 - 17.5 G/dL AO Workflow SS Lymphocytes (Bld) [#/Vol] 0.8 103/mcL Low 0.9 - 4.3 10^3/mcL AO Workflow SS Lymphocytes/100 WBC (Bld) 5.6 % Low 20.0 - 40.0 % AO Workflow SS MCH (RBC) [Entitic mass] 31.7 pg Normal 27.0 - 33.0 pg AO Workflow SS MCHC 34.9 G/dL Normal 32.0 - 36.0 G/dL AO Workflow SS MCV (RBC) [Entitic vol] 90.7 fL Normal 81.0 - 100.0 fL AO Workflow SS Monocytes (Bld) [#/Vol] 1.1 103/mcL Normal 0.1 - 1.4 10^3/mcL AO Workflow SS Monocytes/100 WBC (Bld) 7.6 % Normal 2.0 - 13.0 % AO Workflow SS Neutrophils (Bld) [#/Vol] 12.5 103/mcL High 2.3 - 8.1 10^3/mcL AO Workflow SS Neutrophils/100 WBC (Bld) 86.7 % High 50.0 - 75.0 % AO Workflow SS Platelet mean volume (Bld) [Entitic vol] 7.9 fL Normal 6.4 - 10.5 fL AO Workflow SS Platelets (Bld) [#/Vol] 208 103/mcL Normal 150 - 450 10^3/mcL AO Workflow SS Potassium [Moles/Vol] 4.0 mmol/L Normal 3.5 - 5.1 mmol/L AO ADM SS RBC (Bld) [#/Vol] 4.13 106/mcL Low 4.50 - 6.00 10^6/mcL AO Workflow SS Sodium [Moles/Vol] 135 mmol/L Low 136 - 145 mmol/L AO ADM SS Urea nitrogen [Mass/Vol] 25 mg/dL High 7 - 18 mg/dL AO ADM SS Urea nitrogen/Creatinine [Mass ratio] 24 ratio Normal 7 - 27 ratio AO ADM SS WBC (Bld) [#/Vol] 14.4 103/mcL High 4.5 - 10.8 10^3/mcL AO Workflow SS ABO/Rh (Gel)on 05-29-2024 ABO/Rh Interp Negative Invalid Interpretation Code [facility] Comment on above: Performed By: #### A ROGER WOLF #### [facility] [address] [place], [place] [address] ABS (Gel)on 05-29-2024 ABSC Interp (Gel) Negative Normal [facility] Comment on above: Performed By: #### A ROGER WOLF #### [facility] [address] [place], [place] [address] LABORATORYOrdered By: Yudi Chacko on 05-29-2024 ABO and Rh group Nom (Bld) Blood group A Rh(D) negative Invalid Interpretation Code AO BB Auto SS Blood group antibody screen Ql Negative ABSC (05/29/24 8:50 AM) Normal AO BB Auto SS XR SHOULDER MINIMUM 2 VIEWS LEFTon 05-29-2024 XR SHOULDER MINIMUM 2 VIEWS LEFT ORIGINAL EXAMINATION: TWO XRAY VIEWS OF THE LEFT SHOULDER05/29/2024 12:39 pm XR portable left shoulder two views COMPARISON: CT 03/26/2024 HISTORY: ORDERING SYSTEM PROVIDED HISTORY: Reason for Exam: S/P total shoulder, Status Post Arthroplasty , check prosthesis alignment FINDINGS: The glenohumeral joint has been replaced with a prosthesis that show satisfactory alignment. There are expected postoperative changes in the soft tissues. IMPRESSION: Expected postoperative appearance following left shoulder replacement surgery. Interpreted by: Percy Workman MD Preliminary Report By: Percy Workman MD Electronically signed By Percy Workman MD Dictated Date: 05/29/2024 12:45:28 PM Prelim Date: 05/29/2024 12:47:50 PM Sign Date: 05/29/2024 12:47:50 PM Ordering Provider: PRIYANK MALAVE Normal [facility] .Auto Diffon 05-18-2024 Basophil, Absolute 0.0 10 3/mcL Normal 0.0-0.2 [facility] Comment on above: Performed By: #### B MP, ANEU, GFR, CBC, ADIFF, ALB #### [address] [address] Basophils/100 WBC (Bld) 0.3 % Normal 0.0-2.5 [facility] Comment on above: Performed By: #### B MP, ANEU, GFR, CBC, ADIFF, ALB #### [address] [address] Eosinophil, Absolute 0.1 10 3/mcL Normal 0.0-0.7 [facility] Comment on above: Performed By: #### B MP, ANEU, GFR, CBC, ADIFF, ALB #### [address] [address] Eosinophils/100 WBC (Bld) 2.7 % Normal 0.0-7.0 [facility] Comment on above: Performed By: #### B MP, ANEU, GFR, CBC, ADIFF, ALB #### [address] [address] Lymphocyte, Absolute 1.0 10 3/mcL Normal 0.9-4.3 [facility] Comment on above: Performed By: #### B MP, ANEU, GFR, CBC, ADIFF, ALB #### [address] [address] Lymphocytes/100 WBC (Bld) 20.7 % Normal 20.0-40.0 [facility] Comment on above: Performed By: #### B MP, ANEU, GFR, CBC, ADIFF, ALB #### [address] [address] Monocyte, Absolute 0.5 10 3/mcL Normal 0.1-1.4 [facility] Comment on above: Performed By: #### B MP, ANEU, GFR, CBC, ADIFF, ALB #### [address] [address] Monocytes/100 WBC (Bld) 10.7 % Normal 2.0-13.0 [facility] Comment on above: Performed By: #### B MP, ANEU, GFR, CBC, ADIFF, ALB #### [place] [address] [place], [place] [address] Neutrophils/100 WBC (Bld) 65.6 % Normal 50.0-75.0 [facility] Comment on above: Performed By: #### B MP, ANEU, GFR, CBC, ADIFF, ALB #### [place] [address] [place], [place] [address] .GFRon 05-18-2024 GFR 100 ml/min/1.73sqm Normal [facility] Comment on above: Result Comment: GFR Population mean for , Non- Americans Ages 20-29 = 116 mL/min/1.73 sq.m. Ages 30-39 = 107 mL/min/1.73 sq.m. Ages 40-49 = 99 mL/min/1.73 sq.m. Ages 50-59 = 93 mL/min/1.73 sq.m. Ages 60-69 = 85 mL/min/1.73 sq.m. Ages 70+ = 75 mL/min/1.73 sq.m. Chronic Kidney Disease: Less than 60 mL/min/1.73 square meters End Stage Renal Disease: Less than 15 mL/min/1.73 square meters Performed By: #### A ROGER WOLF #### [address] [address] GFR Non- 83 ml/min/1.73sqm Normal [facility] Comment on above: Result Comment: GFR Population mean for , Non- Americans Ages 20-29 = 116 mL/min/1.73 sq.m. Ages 30-39 = 107 mL/min/1.73 sq.m. Ages 40-49 = 99 mL/min/1.73 sq.m. Ages 50-59 = 93 mL/min/1.73 sq.m. Ages 60-69 = 85 mL/min/1.73 sq.m. Ages 70+ = 75 mL/min/1.73 sq.m. Chronic Kidney Disease: Less than 60 mL/min/1.73 square meters End Stage Renal Disease: Less than 15 mL/min/1.73 square meters Performed By: #### A ROGER WOLF #### [address] [address] .NEUABSon 05-18-2024 Neutrophil, Absolute 3.3 10 3/mcL Normal 2.3-8.1 [facility] Comment on above: Performed By: #### B MP, ANEU, GFR, CBC, ADIFF, ALB #### [address] [address] ALBon 05-18-2024 Albumin Level 3.6 G/dL Normal 3.4-4.8 [facility] Comment on above: Performed By: #### A ROGER WOLF #### [address] [address] BMPon 05-18-2024 BUN/Creatinine Ratio 22 ratio Normal 7-27 [facility] Comment on above: Performed By: #### B MP, ANEU, GFR, CBC, ADIFF, ALB #### [address] [address] Calcium [Mass/Vol] 8.6 mg/dL Normal 8.4-10.[address] [facility] Comment on above: Performed By: #### B MP, ANEU, GFR, CBC, ADIFF, ALB #### [address] [address] Chloride [Moles/Vol] 104 mmol/L Normal 98-107 [facility] Comment on above: Performed By: #### B MP, ANEU, GFR, CBC, ADIFF, ALB #### [address] [address] CO2 [Moles/Vol] 31 mmol/L Normal 23-31 [facility] Comment on above: Performed By: #### B MP, ANEU, GFR, CBC, ADIFF, ALB #### [address] [address] Creatinine [Mass/Vol] 0.88 mg/dL Normal 0.70-1.30 [facility] Comment on above: Result Comment: Test ing performed on Siemens Dimension EXL analyzer using a modified kinetic Alberto technique. Performed By: #### B MP, ANEU, GFR, CBC, ADIFF, ALB #### [address] [address] Electrolyte Balance 4.0 mEq/L Normal 4.0-15.0 [facility] Comment on above: Performed By: #### B MP, ANEU, GFR, CBC, ADIFF, ALB #### [address] [address] Glucose [Mass/Vol] 101 mg/dL Normal 83-[address] [facility] Comment on above: Performed By: #### B MP, ANEU, GFR, CBC, ADIFF, ALB #### [address] [address] Potassium [Moles/Vol] 4.0 mmol/L Normal 3.5-5.1 [facility] Comment on above: Performed By: #### B MP, ANEU, GFR, CBC, ADIFF, ALB #### [address] [address] Sodium [Moles/Vol] 139 mmol/L Normal 136-[address] [facility] Comment on above: Performed By: #### B MP, ANEU, GFR, CBC, ADIFF, ALB #### [address] [address] Urea nitrogen [Mass/Vol] 19 mg/dL High 7-18 [facility] Comment on above: Performed By: #### B MP, ANEU, GFR, CBC, ADIFF, ALB #### [address] [address] CBCon 05-18-2024 Erythrocyte distribution width (RBC) [Ratio] 12.5 % Normal 11.5-15.5 [facility] Comment on above: Performed By: #### B MP, ANEU, GFR, CBC, ADIFF, ALB #### [address] [address] Hematocrit (Bld) [Volume fraction] 39.9 % Low 40.0-52.0 [facility] Comment on above: Performed By: #### B MP, ANEU, GFR, CBC, ADIFF, ALB #### [place] [address] Hgb 13.9 G/dL Normal 13.0-17.5 [facility] Comment on above: Performed By: #### B MP, ANEU, GFR, CBC, ADIFF, ALB #### [place] [address] MCH (RBC) [Entitic mass] 32.1 pg Normal 27.0-33.0 [facility] Comment on above: Performed By: #### B MP, ANEU, GFR, CBC, ADIFF, ALB #### [place] [address] MCHC 34.9 G/dL Normal 32.0-36.0 [facility] Comment on above: Performed By: #### B MP, ANEU, GFR, CBC, ADIFF, ALB #### [place] [address] MCV (RBC) [Entitic vol] 91.9 fL Normal 81.0-100.0 [facility] Comment on above: Performed By: #### B MP, ANEU, GFR, CBC, ADIFF, ALB #### [place] [address] Platelet 184 10 3/mcL Normal 150-450 [facility] Comment on above: Performed By: #### B MP, ANEU, GFR, CBC, ADIFF, ALB #### [place] [address] Platelet mean volume (Bld) [Entitic vol] 7.5 fL Normal 6.4-10.5 [facility] Comment on above: Performed By: #### B MP, ANEU, GFR, CBC, ADIFF, ALB #### [place] [address] RBC 4.35 10 6/mcL Low 4.50-6.00 [facility] Comment on above: Performed By: #### B MP, ANEU, GFR, CBC, ADIFF, ALB #### [place] [address] [place], [place] [address] WBC 5.0 10 3/mcL Normal 4.5-10.8 [facility] Comment on above: Performed By: #### B MP, ANEU, GFR, CBC, ADIFF, ALB #### [facility] [address] [place], [place] [address] LABORATORYOrdered By: SYSTEM SYSTEM on 05-18-2024 Albumin BCP dye [Mass/Vol] 3.6 G/dL Normal 3.4 - 4.8 G/dL AO ADM SS Basophils (Bld) [#/Vol] 0.0 103/mcL Normal 0.0 - 0.2 10^3/mcL AO Workflow SS Basophils/100 WBC (Bld) 0.3 % Normal 0.0 - 2.5 % AO Workflow SS Calcium [Mass/Vol] 8.6 mg/dL Normal 8.4 - 10. 2 mg/dL AO ADM SS Chloride [Moles/Vol] 104 mmol/L Normal 98 - 10 7 mmol/L AO ADM SS CO2 [Moles/Vol] 31 mmol/L Normal 23 - 31 mmol/L AO ADM SS Creatinine [Mass/Vol] 0.88 mg/dL Normal 0.70 - 1.30 mg/dL AO ADM SS Comment on above: Interpretive Data: T esting performed on Siemens Dimension EXL analyzer using a modified kinetic Alberto technique. Electrolyte Balance 4.0 mEq/L Normal 4.0 - 15 .0 mEq/L AO ADM SS Eosinophil, Absolute 0.1 103/mcL Normal 0.0 - 0 .7 10^3/mcL AO Workflow SS Eosinophils/100 WBC (Bld) 2.7 % Normal 0.0 - 7.0 % AO Workflow SS Erythrocyte distribution width (RBC) [Ratio] 12.5 % Normal 11.5 - 15.5 % AO Workflow SS GFR/1.73 sq M.predicted among blacks MDRD (S/P/Bld) [Vol rate/Area] 100 ml/min/1.73sqm Invalid Interpretation Code AO Chemistry S Comment on above: Interpretive Data: GFR Population mean for , Non- Americans Ages 20-29 = 116 mL/min/1.73 sq.m. Ages 30-39 = 107 mL/min/1.73 sq.m. Ages 40-49 = 99 mL/min/1.73 sq.m. Ages 50-59 = 93 mL/min/1.73 sq.m. Ages 60-69 = 85 mL/min/1.73 sq.m. Ages 70+ = 75 mL/min/1.73 sq.m. Chronic Kidney Disease: Less than 60 mL/min/1.73 square meters End Stage Renal Disease: Less than 15 mL/min/1.73 square meters GFR/1.73 sq M.predicted among non-blacks MDRD (S/P/Bld) [Vol rate/Area] 83 ml/min/1.73sqm Invalid Interpretation Code AO Chemistry S Comment on above: Interpretive Data: GFR Population mean for , Non- Americans Ages 20-29 = 116 mL/min/1.73 sq.m. Ages 30-39 = 107 mL/min/1.73 sq.m. Ages 40-49 = 99 mL/min/1.73 sq.m. Ages 50-59 = 93 mL/min/1.73 sq.m. Ages 60-69 = 85 mL/min/1.73 sq.m. Ages 70+ = 75 mL/min/1.73 sq.m. Chronic Kidney Disease: Less than 60 mL/min/1.73 square meters End Stage Renal Disease: Less than 15 mL/min/1.73 square meters Glucose [Mass/Vol] 101 mg/dL Normal 83 - 110 mg/dL AO ADM SS Hematocrit (Bld) [Volume fraction] 39.9 % Low 40.0 - 52.0 % AO Workflow SS Hemoglobin (Bld) [Mass/Vol] 13.9 G/dL Normal 13.0 - 17.5 G/dL AO Workflow SS Lymphocytes (Bld) [#/Vol] 1.0 103/mcL Normal 0.9 - 4.3 10^3/mcL AO Workflow SS Lymphocytes/100 WBC (Bld) 20.7 % Normal 20.0 - 40.0 % AO Workflow SS MCH (RBC) [Entitic mass] 32.1 pg Normal 27.0 - 33.0 pg AO Workflow SS MCHC 34.9 G/dL Normal 32.0 - 36.0 G/dL AO Workflow SS MCV (RBC) [Entitic vol] 91.9 fL Normal 81.0 - 100.0 fL AO Workflow SS Monocytes (Bld) [#/Vol] 0.5 103/mcL Normal 0.1 - 1.4 10^3/mcL AO Workflow SS Monocytes/100 WBC (Bld) 10.7 % Normal 2.0 - 13.0 % AO Workflow SS Neutrophils (Bld) [#/Vol] 3.3 103/mcL Normal 2.3 - 8.1 10^3/mcL AO Workflow SS Neutrophils/100 WBC (Bld) 65.6 % Normal 50.0 - 75.0 % AO Workflow SS Platelet mean volume (Bld) [Entitic vol] 7.5 fL Normal 6.4 - 10.5 fL AO Workflow SS Platelets (Bld) [#/Vol] 184 103/mcL Normal 150 - 450 10^3/mcL AO Workflow SS Potassium [Moles/Vol] 4.0 mmol/L Normal 3.5 - 5.1 mmol/L AO ADM SS RBC (Bld) [#/Vol] 4.35 106/mcL Low 4.50 - 6.00 10^6/mcL AO Workflow SS Sodium [Moles/Vol] 139 mmol/L Normal 136 - 145 mmol/L AO ADM SS Urea nitrogen [Mass/Vol] 19 mg/dL High 7 - 18 mg/dL AO ADM SS Urea nitrogen/Creatinine [Mass ratio] 22 ratio Normal 7 - 27 ratio AO ADM SS WBC (Bld) [#/Vol] 5.0 103/mcL Normal 4.5 - 10.8 10^3/mcL AO Workflow SS LABORATORYOrdered By: Chucky Carter on 05-18-2024 MRSA (PCR) Not Detected 1 (05/18/24 10:50 AM) Normal Not Detected Auto Viro/Sero SS Comment on above: Result Comment: Note s 1990 MRSA PCR Int MRSA DNA not detecte d by Real-Time Polymerase Chain Reaction (PCR). A negative result may be due to intermittent colonization. Colonization may vary depending on patient treatment, patient status, or exposure to high-risk environments.As with all PCR based in vitro diagnostic tests, extremely low levels of target below the limit of detection of the assay may be detected, but results may not be reproducible. Invalid Interpretation Code Auto Viro/Sero SS MRSAPCRon 05-18-2024 MRSA (PCR) Not detected Normal Not Detected [facility] Comment on above: Result Comment: Note s 1990 Performed By: #### M RSAPCR #### [facility] [address] [place] [address] MRSA PCR Int Normal [facility] Comment on above: Result Comment: MRSA DNA not detected by Real-Time Polymerase Chain Reaction (PCR). A negative result may be due to intermittent colonization. Colonization may vary depending on patient treatment, patient status, or exposure to high-risk environments. As with all PCR based in vitro diagnostic tests, extremely low levels of target below the limit of detection of the assay may be detected, but results may not be reproducible. See Below Performed By: #### M RSAPCR #### [facility] [address] [place] [address] Pulmonary Visit Reporton Pulmonary Visit Report [facility] [address] [place] [address] OFFICE VISIT Date of Service: 05/15/24 MR#: [id number] Acct: [id number] Name: LIA GALLEGOS Rep #: [id number] : 1940 Provider: Dr. Favian Snyder DO Age/Sex: 83/M Location: [facility] Status: Signed Assessment and Plan Assessment and Plan (1) Preoperative clearance: Status: Chronic Plan: The patient was referred to our office to obtain preoperative pulmonary clearance due to a planned reverse left total shoulder arthroplasty by [facility]. The patient had a chest x-ray completed in March 2024, which upon my review, was unremarkable. He then completed pulmonary function studies in April 2024, which only demonstrated a mild restrictive impairment with preserved diffusing capacity. The patient is asymptomatic from a respiratory perspective. His lungs are clear on examination. His oxygen saturations are normal on room air. Therefore, I see no indication to proceed with any additional workup. The patient is clear from my perspective to proceed with surgery. HPI HPI Comments Details: The patient is an 83-year-old male who presents to the office today in referral for preoperative clearance. The patient is currently being followed by [facility] and is in need of a reverse left total shoulder arthroplasty. The patient was referred here to our office by his primary care provider to obtain pulmonary clearance for the aforementioned surgery. However, the patient has no significant past pulmonary history. In March 2024, a chest x-ray was obtained as part of his preoperative clearance. That imaging study was reviewed and demonstrated no acute cardiopulmonary process. The patient went on to complete pulmonary function studies in April 2024, which only demonstrated a mild restrictive impairment with preserved diffusing capacity. The patient reported that he walks several miles per day and is active on a regular basis. He has a very limited smoking history, having quit completely 50 years ago. He has never been diagnosed with asthma. 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 He currently denies any shortness of breath, chest tightness, wheezing, cough, fevers, chills or night sweats. His weight and appetite have been stable. 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 Preop clearance ortho surgery [employer] Apprentice Required: No DME Vendor: n/a Accompanied by: Self Is patient in pain?: No Allergies lorazepam Adverse Reaction (Intermediate, Verified 05/15/24 10:37) Other Medications ???Medication ???Instructions ???Recorded ???Confirmed ???Type valsartan 80 mg tablet 80 mg PO BID HTN 09/27/23 05/15/24 History hydroxychloroquine 200 mg tablet 200 mg PO BID 10/06/23 05/15/24 History acetaminophen 325 mg tablet 650 mg (2 x 325 mg) PO Q6H PRN PRN 10/10/23 05/15/24 Rx Pain 1-10 Or Fever >100.7 #0 tabs calcium carbonate 1,000 mg (5 x 200 mg calcium (500 10/10/23 05/15/24 Rx mg)) PO Q6H PRN PRN Heartburn Or Indigestion #0 tabs pantoprazole 40 mg tablet,delayed 40 mg PO DAILY 5 days #0 tabs 10/10/23 05/15/24 Rx release atenolol 25 mg tablet 25 mg PO QDAY 12/16/23 05/15/24 History atorvastatin 10 mg tablet 10 mg PO QDAY 12/16/23 05/15/24 History aspirin 81 mg tablet,delayed 81 mg PO QDAY 02/06/24 05/15/24 History release (Adult Aspirin Regimen) hydrochlorothiazide 12.5 mg tablet 12.5 mg PO QDAY 02/06/24 05/15/24 History tramadol 50 mg tablet 50 mg PO 4X/DAY PRN 02/22/24 05/15/24 History Have you fallen in the past year?: No PFSH Medical History CAD (coronary artery disease) Vitamin B12 deficiency Anxiety Palpitations Osteopenia DJD (degenerative joint disease) of cervical spine Neuropathy PVCs (premature ventricular contractions) Erectile dysfunction BPH (benign prostatic hyperplasia) Sleep disorder Afib Paroxysmal tachycardia Cervical myelopathy Carotid stenosis Dizziness GERD (gastroesophageal reflux disease) Hypertension Surgical History H/O carpal tunnel repair Rotator cuff tear, left lumbarectomy Family History Father Cancer Prostate CA Mother Hypertension Myocardial infarction at 73 of NE and pulmonary HTN (more content not included)... Normal [facility] Chest PA and Lateralon 04-13 Chest PA and Lateral [facility] Services [address] [place] [id number] Chest PA and Lateral MR#: [id number] Acct: [id number] Name: LIA GALLEGOS Adina Rep #: [id number] : 1940 83 From: Miquel Diggs PCP: ENRIKE Spangler Status: [facility] CL Study: Chest PA and Lateral Date of Exam: 04/13/24 Exam# [id number] Ordering Dr: Arpit ManuelC [id number] STUDY: XR Chest 2 Views 04/13/2024 1:27 PM REASON FOR EXAM: Male, 83 years old. PREOP COMPARISON: 10/15/2023 TECHNIQUE: XR Chest 2 Views FINDINGS: There is no demonstrated pleural abnormality. Normal heart size. Normal mediastinum. Normal virgie. Prominent appearing increased interstitial lung markings. Normal visualized pulmonary arteries. There is atherosclerotic calcification of the aortic arch with tortuosity. There are diffuse degenerative changes of the visualized thoracic spine. There is degenerative osteoarthritis of the bilateral shoulders. There are no acute findings of the upper abdomen. RAD/Chest PA and Lateral IMPRESSION: There are no acute findings. Electronically Signed: Miquel Stockton MD at 14:23 EST , CC: ENRIKE Manuel Clinical Supervisor: Signed Normal [facility] Urinalysis, Completeon 04-13 BACTERIA RARE Normal None Seen [facility] Comment on above: Order Comment: CLEAN CATCH Performed By: #### L 400.0001 ####[facility] [id number] [place], [address] EPI,SQUAMOUS 0-5 SEEN Normal 0-5 [facility] Comment on above: Order Comment: CLEAN CATCH Performed By: #### L 400.0001 ####[facility] [id number] [place], [address] RBC 0-5 SEEN Normal 0-5 [facility] Comment on above: Order Comment: CLEAN CATCH Performed By: #### L 400.0001 ####[facility] [id number] [place], [address] WBC 0-5 SEEN Normal 0-5 [facility] Comment on above: Order Comment: CLEAN CATCH Performed By: #### L 400.0001 ####[facility] [id number] [place], [address] Mucus Ql (Urine sed) 0 SEEN Normal [facility] Comment on above: Order Comment: CLEAN CATCH Performed By: #### L 400.0001 ####[facility] [id number] [place], [address] Urgent Care Visit Reporton 1 06-02-2023 Urgent Care Visit Report [facility] [address], [address] [place], [place] [address] OFFICE VISIT Date of Service: 04/01/24 MR#: [id number] Acct: [id number] Name: LIA GALLEGOS Rep #: [id number] : 1940 Provider: ENRIKE diamond Age/Sex: 83/M Location: [facility] Status: Signed Intake Vital Signs 02/22/24 09:59 04/01/24 09:22 Height 6 ft 1 in 6 ft 1 in Weight: 176 lb 6 oz BMI 23.2 BP 142/83 H 140/60 H Blood Pressure Location Lt brachial Lt brachial Position Sitting Sitting Respiration 16 16 Pulse 62 64 Pulse Source Monitor NIBP Temp 97.9 F Temp Source Oral Pulse Oximetry (%) 98 Oxygen Delivery Method room air Intake Visit Reasons: SORE THROAT, COUGH Chief Complaint: ST, drainage, cough, mucus [employer] Apprentice Required: No Is patient in pain?: No Allergies lorazepam Adverse Reaction (Intermediate, Verified 04/01/24 09:30) Other Have you fallen in the past year?: No Nurse's Note: ST, drainage, cough, mucus xn 24 hours. declines viral testing [facility] Medical History CAD (coronary artery disease) Vitamin B12 deficiency Anxiety Palpitations Osteopenia DJD (degenerative joint disease) of cervical spine Neuropathy PVCs (premature ventricular contractions) Erectile dysfunction BPH (benign prostatic hyperplasia) Sleep disorder Afib Paroxysmal tachycardia Cervical myelopathy Carotid stenosis Dizziness GERD (gastroesophageal reflux disease) Hypertension Surgical History H/O carpal tunnel repair Rotator cuff tear, left lumbarectomy Family History Father Cancer Prostate CA Mother Hypertension Myocardial infarction at 73 of NE and pulmonary HTN Social History household members: none Smoking Status: Former smoker how long ago did patient quit smokin years ago alcohol intake: never substance use type: does not use what type of physical activity do you participate in: walking frequency: 5-6 times per week duration: 45-60 minutes/day seatbelt use: always HPI HPI Chief Complaint: ST, drainage, cough, mucus Details: LIA GALLEGOS, is a 83 M who presents to the office today for sore throat, nasal drainage, cough, and mucus production for 24 hours. He declines viral testing. He OTC cold medication with no improvement in symptoms. He states known sick contacts. He states he is up to date on flu vaccination and previous COVID-19 vaccination. ROS Const Constitutional: No body ache, chills, fatigue, fever(s), headache(s) or change in appetite Eyes Eyes: No blurry vision, change in vision, double vision, irritation, discharge, vision loss, dry eyes, bulging eyes, floaters, visual disturbances, eye pain, Light sensitivity, spots in vision, tunnel vision or other ENT ENT: Positive for nasal discharge and sore throat; No ear or mastoid pain, ear discharge, ear pressure, tinnitus, dizziness/vertigo, nosebleed/epistaxis, nasal congestion, nose pain, sinus pressure, sinus pain, post nasal drip, headache(s), facial pain, dental pain, difficulty swallowing, bad breath, hoarseness, lip swelling, mouth lesions, mouth pain, neck pain, tongue swelling or throat swelling Resp Respiratory: Positive for cough Cough: Yes productive and change in phlegm color (Dark, stringy); No chest congestion, hemoptysis, pain on inspiration, shortness of breath, pain with cough, stridor or wheezing Cardio Cardiology: No chest pain at rest, chest pain with exertion, shortness of breath, dyspnea on exertion or lightheadedness Gastro GI: No abdominal pain, change in bowel habits, constipation, diarrhea, difficulty swallowing, nausea/dyspepsia or vomiting Genitourinary Male: No burning urination or urinary frequency Musc Musculoskeletal: No joint pain or neck pain Skin Skin: No rash Neuro Neurology: No headache(s) or visual disturbances Psych Psychiatric: No change in appetite Endo Endocrine: No fatigue Aller/Imm Allergy/Immunologic: No lip swelling, throat swelling, tongue swelling or wheezing Exam Const General: cooperative, healthy appearing, comfortable and no acute distress Orientation: alert, awake and oriented x3 HENMT Head: normal to inspection and normocephalic Ears: hearing grossly normal bilaterally, external ears normal and TM's normal bilaterally Nose: external nose normal, nares normal and no nasal discharge Face and sinus: normal facial exam and sinuses nontender Mouth: oral mucosae normal, lip normal, tongue normal, oropharynx normal and moist mucous membranes Throat: posterior oropharynx normal, tonsils normal, uvula midline and no postnasal drainage Ey (more content not included)... Normal [facility] CT SHOULDER W/O CONTRAST LEF Ton 03-27-2024 CT SHOULDER W/O CONTRAST LEFT ORIGINAL EXAMINATION: CT OF THE LEFT SHOULDER WITHOUT CONTRAST 03/26/2024 11:30 am TECHNIQUE: CT of the left shoulder was performed without the administration of intravenous contrast. Multiplanar reformatted images are provided for review. Automated exposure control, iterative reconstruction, and/or weight based adjustment of the mA/kV was utilized to reduce the radiation dose to as low as reasonably achievable. COMPARISON: None. HISTORY: ORDERING SYSTEM PROVIDED HISTORY: Reason for Exam: osteoarthritis chronic lt shoulder pain. no recent injury. FINDINGS: No acute fracture. Advanced degenerative changes of the glenohumeral joint with subchondral cystic change, sclerosis, and osteophyte formation. Superior subluxation of the humeral head in relation to the glenoid with resultant decrease in the acromial humeral interval. Adaptive remodeling of the acromion noted. Associated atrophy seen of the supraspinatus, infraspinatus and subscapularis muscles. These findings are indicative of chronic rotator cuff tears. Moderate to severe degenerative changes of the acromioclavicular joint with subacromial spurring. Multiple well corticated ossicles are noted between the acromion and humeral head. Glenoid bone stock is approximately 12 mm. No acute soft tissue abnormality. There is muscular atrophy of the infraspinatus and supraspinatus. The visualized lungs unremarkable. IMPRESSION: Advanced glenohumeral joint arthrosis. There is also substantial acromioclavicular joint arthrosis with surrounding corticated ossifications Indicators of chronic rotator cuff tears, as above No aggressive bony lesions I have personally reviewed the images of this examination and agree with the resident's findings and interpretation. Interpreted by: Apollo Delgado MD Preliminary Report By: Axel Fontenot Electronically signed By Apollo Delgado MD Dictated Date: 03/26/2024 1:30:48 PM Prelim Date: 03/27/2024 2:59:12 PM Sign Date: 03/27/2024 2:59:12 PM Ordering Provider: PRIYANK Barcenas [facility] .Auto Diffon 03-26-2024 Basophil, Absolute 0.0 10 3/mcL Normal 0.0-0.2 [facility] Comment on above: Performed By: #### A ROGER WOLF #### [address] [address] Basophils/100 WBC (Bld) 0.3 % Normal 0.0-2.5 [facility] [facility] Comment on above: Performed By: #### A ROGER WOLF #### [address] [address] Eosinophil, Absolute 0.2 10 3/mcL Normal 0.0-0.7 [facility] Comment on above: Performed By: #### A ROGER WOLF #### [address] [address] Eosinophils/100 WBC (Bld) 3.0 % Normal 0.0-7.0 [facility] Comment on above: Performed By: #### A ROGER WOLF #### [address] [address] Lymphocyte, Absolute 1.1 10 3/mcL Normal 0.9-4.3 [facility] Comment on above: Performed By: #### A ROGER WOLF #### [address] [address] Lymphocytes/100 WBC (Bld) 21.4 % Normal 20.0-40.0 [facility] Comment on above: Performed By: #### A ROGER WOLF #### [address] [address] Monocyte, Absolute 0.5 10 3/mcL Normal 0.1-1.4 [facility] Comment on above: Performed By: #### A ROGER WOLF #### [address] [address] Monocytes/100 WBC (Bld) 10.4 % Normal 2.0-13.0 [facility] Comment on above: Performed By: #### A ROGER WOLF #### [address] [address] Neutrophils/100 WBC (Bld) 64.9 % Normal 50.0-75.0 [facility] Comment on above: Performed By: #### A ROGER WOLF #### [address] [address] .GFRon 03-26-2024 GFR 96 ml/min/1.73sqm Normal [facility] Comment on above: Result Comment: GFR Population mean for , Non- Americans Ages 20-29 = 116 mL/min/1.73 sq.m. Ages 30-39 = 107 mL/min/1.73 sq.m. Ages 40-49 = 99 mL/min/1.73 sq.m. Ages 50-59 = 93 mL/min/1.73 sq.m. Ages 60-69 = 85 mL/min/1.73 sq.m. Ages 70+ = 75 mL/min/1.73 sq.m. Chronic Kidney Disease: Less than 60 mL/min/1.73 square meters End Stage Renal Disease: Less than 15 mL/min/1.73 square meters Performed By: #### A ROGER WOLF #### [address] [address] GFR Non- 80 ml/min/1.73sqm Normal [facility] Comment on above: Result Comment: GFR Population mean for , Non- Americans Ages 20-29 = 116 mL/min/1.73 sq.m. Ages 30-39 = 107 mL/min/1.73 sq.m. Ages 40-49 = 99 mL/min/1.73 sq.m. Ages 50-59 = 93 mL/min/1.73 sq.m. Ages 60-69 = 85 mL/min/1.73 sq.m. Ages 70+ = 75 mL/min/1.73 sq.m. Chronic Kidney Disease: Less than 60 mL/min/1.73 square meters End Stage Renal Disease: Less than 15 mL/min/1.73 square meters Performed By: #### A ROGER WOLF #### [address] [address] .NEUABSon 03-26-2024 Neutrophil, Absolute 3.3 10 3/mcL Normal 2.3-8.1 [facility] Comment on above: Performed By: #### A ROGER WOLF #### [address] [address] ABO/Rh (Gel)on 03-26-2024 ABO/Rh Interp Negative Invalid Interpretation Code [facility] Comment on above: Order Comment: SURG MARTA 1/7 -AC Performed By: #### A ROGER WOLF #### [address] [address] ABS (Gel)on 03-26-2024 ABSC Interp (Gel) Negative Normal [facility] Comment on above: Order Comment: SURG MARTA 1/7 -AC Performed By: #### A ROGER WOLF #### [address] [address] ALBon 03-26-2024 Albumin Level 3.8 G/dL Normal 3.4-4.8 [facility] Comment on above: Performed By: #### ROGER CUTLER #### [address] [address] BMPon 03-26-2024 BUN/Creatinine Ratio 12 ratio Normal 7-27 [facility] Comment on above: Performed By: #### ROGER CUTLER #### [address] [address] Calcium [Mass/Vol] 8.9 mg/dL Normal 8.4-10.[address] [facility] Comment on above: Performed By: #### A MARYANN ABSRODRIGUEZ #### [address] [address] Chloride [Moles/Vol] 100 mmol/L Normal 98-107 [facility] Comment on above: Performed By: #### A MARYANN ABSGEL #### [address] [address] CO2 [Moles/Vol] 31 mmol/L Normal 23-31 [facility] Comment on above: Performed By: #### A MARYANN ABSGEL #### [address] [address] Creatinine [Mass/Vol] 0.91 mg/dL Normal 0.70-1.30 [facility] Comment on above: Result Comment: Test ing performed on Siemens Dimension EXL analyzer using a modified kinetic Alberto technique. Performed By: #### A MARYANN ABSGEL #### [address] [address] Electrolyte Balance 5.0 mEq/L Normal 4.0-15.0 [facility] Comment on above: Performed By: #### A MARYANN ABSGEL #### [address] [address] Glucose [Mass/Vol] 93 mg/dL Normal 83-[address] [facility] Comment on above: Performed By: #### A MARYANN ABSGEL #### [address] [address] Potassium [Moles/Vol] 4.2 mmol/L Normal 3.5-5.1 [facility] Comment on above: Performed By: #### A MARYANN ABSGEL #### [address] [address] Sodium [Moles/Vol] 136 mmol/L Normal 136-[address] [facility] Comment on above: Performed By: #### A MARYANN ABSGEL #### [address] [address] Urea nitrogen [Mass/Vol] 11 mg/dL Normal 7-18 [facility] Comment on above: Performed By: #### A ROGER WOLF #### [address] [address] CBCon 03-26-2024 Erythrocyte distribution width (RBC) [Ratio] 13.4 % Normal 11.5-15.5 [facility] Comment on above: Order Comment: Pre-A dmission Testing Performed By: #### A ROGER WOLF #### [place] [address] Hematocrit (Bld) [Volume fraction] 39.6 % Low 40.0-52.0 [facility] Comment on above: Order Comment: Pre-A dmission Testing Performed By: #### A ROGER WOLF #### [address] [address] Hgb 13.6 G/dL Normal 13.0-17.5 [facility] Comment on above: Order Comment: Pre-A dmission Testing Performed By: #### A ROGER WOLF #### [address] [address] MCH (RBC) [Entitic mass] 32.1 pg Normal 27.0-33.0 [facility] Comment on above: Order Comment: Pre-A dmission Testing Performed By: #### A ROGER WOLF #### [address] [address] MCHC 34.5 G/dL Normal 32.0-36.0 [facility] Comment on above: Order Comment: Pre-A dmission Testing Performed By: #### A ROGER WOLF #### [address] [address] MCV (RBC) [Entitic vol] 93.3 fL Normal 81.0-100.0 [facility] Comment on above: Order Comment: Pre-A dmission Testing Performed By: #### A ROGER WOLF #### [address] [address] Platelet 195 10 3/mcL Normal 150-450 [facility] Comment on above: Order Comment: Pre-A dmission Testing Performed By: #### A ROGER WOLF #### [address] [address] Platelet mean volume (Bld) [Entitic vol] 7.7 fL Normal 6.4-10.5 [facility] Comment on above: Order Comment: Pre-A dmission Testing Performed By: #### A ROGER WOLF #### [place] [address] RBC 4.24 10 6/mcL Low 4.50-6.00 [facility] Comment on above: Order Comment: Pre-A dmission Testing Performed By: #### A ROGER WOLF #### [place] [address] WBC 5.1 10 3/mcL Normal 4.5-10.8 [facility] Comment on above: Order Comment: Pre-A dmission Testing Performed By: #### A ROGER WOLF #### [place] [address] LABORATORYOrdered By: Yudi Chacko on 03-26-2024 ABO and Rh group Nom (Bld) Blood group A Rh(D) negative Invalid Interpretation Code AO BB Auto SS Blood group antibody screen Ql Negative ABSC (03/26/24 10:53 AM) Normal AO BB Auto SS LABORATORYOrdered By: SYSTEM SYSTEM on 03-26-2024 Albumin BCP dye [Mass/Vol] 3.8 G/dL Normal 3.4 - 4.8 G/dL AO ADM SS Basophils (Bld) [#/Vol] 0.0 103/mcL Normal 0.0 - 0.2 10^3/mcL AO Workflow SS Basophils/100 WBC (Bld) 0.3 % Normal 0.0 - 2.5 % AO Workflow SS Calcium [Mass/Vol] 8.9 mg/dL Normal 8.4 - 10. 2 mg/dL AO ADM SS Chloride [Moles/Vol] 100 mmol/L Normal 98 - 10 7 mmol/L AO ADM SS CO2 [Moles/Vol] 31 mmol/L Normal 23 - 31 mmol/L AO ADM SS Creatinine [Mass/Vol] 0.91 mg/dL Normal 0.70 - 1.30 mg/dL AO ADM SS Comment on above: Interpretive Data: T esting performed on Siemens Dimension EXL analyzer using a modified kinetic Alberto technique. Electrolyte Balance 5.0 mEq/L Normal 4.0 - 15 .0 mEq/L AO ADM SS Eosinophil, Absolute 0.2 103/mcL Normal 0.0 - 0 .7 10^3/mcL AO Workflow SS Eosinophils/100 WBC (Bld) 3.0 % Normal 0.0 - 7.0 % AO Workflow SS Erythrocyte distribution width (RBC) [Ratio] 13.4 % Normal 11.5 - 15.5 % AO Workflow SS GFR/1.73 sq M.predicted among blacks MDRD (S/P/Bld) [Vol rate/Area] 96 ml/min/1.73sqm Invalid Interpretation Code AO Chemistry S Comment on above: Interpretive Data: GFR Population mean for , Non- Americans Ages 20-29 = 116 mL/min/1.73 sq.m. Ages 30-39 = 107 mL/min/1.73 sq.m. Ages 40-49 = 99 mL/min/1.73 sq.m. Ages 50-59 = 93 mL/min/1.73 sq.m. Ages 60-69 = 85 mL/min/1.73 sq.m. Ages 70+ = 75 mL/min/1.73 sq.m. Chronic Kidney Disease: Less than 60 mL/min/1.73 square meters End Stage Renal Disease: Less than 15 mL/min/1.73 square meters GFR/1.73 sq M.predicted among non-blacks MDRD (S/P/Bld) [Vol rate/Area] 80 ml/min/1.73sqm Invalid Interpretation Code AO Chemistry S Comment on above: Interpretive Data: GFR Population mean for , Non- Americans Ages 20-29 = 116 mL/min/1.73 sq.m. Ages 30-39 = 107 mL/min/1.73 sq.m. Ages 40-49 = 99 mL/min/1.73 sq.m. Ages 50-59 = 93 mL/min/1.73 sq.m. Ages 60-69 = 85 mL/min/1.73 sq.m. Ages 70+ = 75 mL/min/1.73 sq.m. Chronic Kidney Disease: Less than 60 mL/min/1.73 square meters End Stage Renal Disease: Less than 15 mL/min/1.73 square meters Glucose [Mass/Vol] 93 mg/dL Normal 83 - 110 mg/dL AO ADM SS Hematocrit (Bld) [Volume fraction] 39.6 % Low 40.0 - 52.0 % AO Workflow SS Hemoglobin (Bld) [Mass/Vol] 13.6 G/dL Normal 13.0 - 17.5 G/dL AO Workflow SS Lymphocytes (Bld) [#/Vol] 1.1 103/mcL Normal 0.9 - 4.3 10^3/mcL AO Workflow SS Lymphocytes/100 WBC (Bld) 21.4 % Normal 20.0 - 40.0 % AO Workflow SS MCH (RBC) [Entitic mass] 32.1 pg Normal 27.0 - 33.0 pg AO Workflow SS MCHC 34.5 G/dL Normal 32.0 - 36.0 G/dL AO Workflow SS MCV (RBC) [Entitic vol] 93.3 fL Normal 81.0 - 100.0 fL AO Workflow SS Monocytes (Bld) [#/Vol] 0.5 103/mcL Normal 0.1 - 1.4 10^3/mcL AO Workflow SS Monocytes/100 WBC (Bld) 10.4 % Normal 2.0 - 13.0 % AO Workflow SS Neutrophils (Bld) [#/Vol] 3.3 103/mcL Normal 2.3 - 8.1 10^3/mcL AO Workflow SS Neutrophils/100 WBC (Bld) 64.9 % Normal 50.0 - 75.0 % AO Workflow SS Platelet mean volume (Bld) [Entitic vol] 7.7 fL Normal 6.4 - 10.5 fL AO Workflow SS Platelets (Bld) [#/Vol] 195 103/mcL Normal 150 - 450 10^3/mcL AO Workflow SS Potassium [Moles/Vol] 4.2 mmol/L Normal 3.5 - 5.1 mmol/L AO ADM SS RBC (Bld) [#/Vol] 4.24 106/mcL Low 4.50 - 6.00 10^6/mcL AO Workflow SS Sodium [Moles/Vol] 136 mmol/L Normal 136 - 145 mmol/L AO ADM SS Urea nitrogen [Mass/Vol] 11 mg/dL Normal 7 - 18 mg/dL AO ADM SS Urea nitrogen/Creatinine [Mass ratio] 12 ratio Normal 7 - 27 ratio AO ADM SS WBC (Bld) [#/Vol] 5.1 103/mcL Normal 4.5 - 10.8 10^3/mcL AO Workflow SS LABORATORYOrdered By: Salvador Mckenzie on 03-26-2024 MRSA (PCR) Not Detected 1 (03/26/24 10:53 AM) Normal Not Detected AH Auto Viro/Sero SS Comment on above: Result Comment: [place] [id number] MRSA PCR Int MRSA DNA not detecte d by Real-Time Polymerase Chain Reaction (PCR). A negative result may be due to intermittent colonization. Colonization may vary depending on patient treatment, patient status, or exposure to high-risk environments.As with all PCR based in vitro diagnostic tests, extremely low levels of target below the limit of detection of the assay may be detected, but results may not be reproducible. Invalid Interpretation Code Auto Viro/Sero SS MRSAPCRon 03-26-2024 MRSA (PCR) Not detected Normal Not Detected [facility] Comment on above: Result Comment: [place] [id number] Performed By: #### M RSAPCR #### [facility] [address] [place] [address] MRSA PCR Int Normal [facility] Comment on above: Result Comment: MRSA DNA not detected by Real-Time Polymerase Chain Reaction (PCR). A negative result may be due to intermittent colonization. Colonization may vary depending on patient treatment, patient status, or exposure to high-risk environments. As with all PCR based in vitro diagnostic tests, extremely low levels of target below the limit of detection of the assay may be detected, but results may not be reproducible. See Below Performed By: #### M RSAPCR #### [facility] [address] [place] [address] Stress Reporton 03-23-2024 Stress Report [facility] [address] [place] [address] MR#: [id number] Acct: [id number] Name: LIA GALLEGOS Rep #: [id number] : 1940 83 From: Pito Bird MD Primary Care: Arpit Manuel CLAIMS VICE PRESIDENT-C Status: REG CLI Referring Dr: Pito Bird MD Sex: M C Stress Test Report Exercise myocardial perfusion stress test. 83-year-old man with a history of coronary disease Stress protocol: Resting EKG demonstrates normal sinus rhythm with a rate of 62 bpm resting blood pressure is 142/70 mmHg. The patient exercised according to the regular Brendan protocol for a total duration of 6 minutes attaining a maximum heart rate of 181 bpm which was 132% of maximum predicted heart rate; the maximum workload was 7 metabolic equivalents. At rest there were no ST or T wave changes noted to suggest ischemia and at peak exercise upsloping ST changes only were noted which did not meet the criteria for ischemia. The patient did however have a run of a narrow complex tachycardia with a rate of approximately 181 bpm and during that there was 1.[address] depression noted in the lateral leads suggestive of ischemia no clinical angina was noted the test was terminated due to the target heart rate being achieved/fatigue. The peak blood pressure was 164/70 mmHg. Rate- pressure product was 29,300. Myocardial perfusion protocol. 11.9 mCi of technetium 99m sestamibi was injected at rest. The patient exercised according to regular Brendan protocol for total duration of 6 minutes and at peak exercise 35.3 mCi of technetium 99m sestamibi was injected stress images were obtained stress and rest images were reconstructed in comparing the short axis vertical long and horizontal long axis. Gated images were also obtained. Perfusion SPECT analysis: Review of the stress images demonstrate normal uptake of tracer noted in all areas of the myocardium. The resting images similarly demonstrate normal uptake of tracer noted in all areas of the myocardium. No areas of reversibility are noted to suggest ischemia no previous infarct was noted. Gated SPECT analysis: The gated ejection fraction is 60%. Conclusion: Normal exercise myocardial perfusion stress test at a moderate workload Preserved ejection fraction. Narrow complex tachycardia with ST changes asymptomatic 03/23/241545 Date Pito Bird MD CC: CLAIMS VICE PRESIDENT-C Arpit Manuel; Dr. Pito Bird MD Date Dictated: 03/23/241541 Date Transcribed: 03/23/241541 Clinical Supervisor: [place] Signed Normal [facility] 12 Lead EKG performed by [facility] on 02-22-2024 12 Lead EKG performed by [facility] [address] [place] [address] 12 Lead EKG performed by [facility] 02/22/24 1000 MR#: [id number] Acct: [id number] Name: LIA GALLEGOS Rep #: [id number] : 1940 83 From: Pito Bird MD Attending Dr: Dr. Pito Bird MD Status: DEP A MB Ordering Dr: Pito Bird MD Date: 02/22/24 Location: [facility] Sex: M C Admitted: BMS/12 Lead EKG performed by [facility] ECG Report Interpretation --Sinus Bradycardia -With rate variation cv = 14.-consider old anterior infarct. ABNORMAL Electronically signed on 03/01/2024 at 08:01 by Pito Bird [employer] Software Version 8610 03/01/24 0804 Date Pito Bird MD CC: ENRIKE Manuel Date Dictated: 02/22/24 1000 Date Transcribed: 02/22/24 1000 Clinical Supervisor: [place] Signed Normal [facility] Cardiology Visit Reporton Cardiology Visit Report [facility] [address] [place] [address] OFFICE VISIT Date of Service: 02/22/24 MR#: [id number] Acct: [id number] Name: LIA GALLEGOS Rep #: [id number] : 1940 Provider: Dr. Pito Bird MD Age/Sex: 83/M Location: [facility] Status: Signed HPI HPI History of Present Illness Details: Pleasant 83-year-old man with a previous history of hypertension who underwent for routine evaluation and a coronary calcium score in April of this year. It demonstrated total calcium score of 182. Your member had also been having some palpitations and a Holter monitor done in September demonstrated normal sinus rhythm with frequent premature ventricular complexes and PACs. The left ventricular ejection fraction was noted to be 65% with an echocardiogram performed in May there was mild aortic mitral and tricuspid regurgitation. He has had no neck arm or jaw discomfort to explain any angina. He has been compliant with all his medications. He did undergo the coronary calcium score by [facility]. His lipid profile demonstrates a total cholesterol 150 HDL of 48 LDL of 85 his electrocardiogram demonstrates sinus bradycardia with a rate of 54 bpm. Intake Vital Signs 01/18/24 11:21 02/22/24 09:59 Height 6 ft 1 in 6 ft 1 in Weight: 176 lb 4 oz 176 lb 6 oz BMI 23.2 23.2 BP 142/83 H Blood Pressure Location Lt brachial Position Sitting Respiration 16 Pulse 62 Pulse Source Monitor Intake Visit Reasons: RE-EST (SELF) [employer] Apprentice Required: No Accompanied by: Self Is patient in pain?: No Allergies lorazepam Adverse Reaction (Intermediate, Verified 02/22/24 10:03) Other Medications ???Medication ???Instructions ???Recorded ???Confirmed ???Type valsartan 80 mg tablet 80 mg PO BID HTN 09/27/23 02/22/24 History hydroxychloroquine 200 mg tablet 200 mg PO BID 10/06/23 02/22/24 History acetaminophen 325 mg tablet 650 mg (2 x 325 mg) PO Q6H PRN PRN 10/10/23 02/22/24 Rx Pain 1-10 Or Fever >100.7 #0 tabs calcium carbonate 1,000 mg (5 x 200 mg calcium (500 10/10/23 02/22/24 Rx mg)) PO Q6H PRN PRN Heartburn Or Indigestion #0 tabs pantoprazole 40 mg tablet,delayed 40 mg PO DAILY 5 days #0 tabs 10/10/23 02/22/24 Rx release atenolol 25 mg tablet 25 mg PO QDAY 12/16/23 02/22/24 History atorvastatin 10 mg tablet 10 mg PO QDAY 12/16/23 02/22/24 History aspirin 81 mg tablet,delayed 81 mg PO QDAY 02/06/24 02/22/24 History release (Adult Aspirin Regimen) hydrochlorothiazide 12.5 mg tablet 12.5 mg PO QDAY 02/06/24 02/22/24 History tramadol 50 mg tablet 50 mg PO 4X/DAY PRN 02/22/24 02/22/24 History Have you fallen in the past year?: Yes PFSH Medical History CAD (coronary artery disease) Vitamin B12 deficiency Anxiety Palpitations Osteopenia DJD (degenerative joint disease) of cervical spine Neuropathy PVCs (premature ventricular contractions) Erectile dysfunction BPH (benign prostatic hyperplasia) Sleep disorder Afib Paroxysmal tachycardia Cervical myelopathy Carotid stenosis Dizziness GERD (gastroesophageal reflux disease) Hypertension Surgical History H/O carpal tunnel repair Rotator cuff tear, left lumbarectomy Family History Father Cancer Prostate CA Mother Hypertension Myocardial infarction at 73 of NE and pulmonary HTN Social History household members: none Smoking Status: Former smoker how long ago did patient quit smokin years ago alcohol intake: never substance use type: does not use what type of physical activity do you participate in: walking frequency: 5-6 times per week duration: 45-60 minutes/day seatbelt use: always ROS Const Const: Positive for fatigue and difficulty sleeping (issues staying asleep); Negative for weakness, headache(s) or daytime sleepiness ENT ENT: Negative for headache(s), dizziness or Nosebleed/epistaxis Cardio Chest Pain: No Palpitations: No Edema: None Resp Respiratory: Negative for SOB with activity, SOB at rest, SOB orthopnea SOB lying down or Cough GI GI: Negative nausea, vomiting or heartburn Neuro Neuro: Negative for dizziness, lightheadedness, near syncope, headache(s) or weakness Endo Endo: Positive for fatigue Cardiology Exam Const Appearance: cooperative, healthy appearing, no acute distress, well developed and well groomed Nutritional Appearance: average body habitus and well nourished Orientation: alert, awake and oriented x3 Head Head: normal to inspection, normocephalic and atraumatic Ears: hearing grossly normal bilaterally and external ear (more content not included)... Normal [facility] Orthopedic Visit Reporton 10 -15-2024 Orthopedic Visit Report [facility] [facility] [address] [place] [address] OFFICE VISIT Date of Service: 01/31/24 MR#: [id number] Acct: [id number] Name: LIA GALLEGOS Rep #: [id number] : 1940 Provider: Dr. Raul benjamin MD Age/Sex: 83/M Location: [facility] Status: Signed Intake Vital Signs 01/18/24 11:21 Height 6 ft 1 in Weight: 176 lb 4 oz BMI 23.2 Intake Visit Reasons: left shoulder Accompanied by: Self Is patient in pain?: Yes Pain scale (1-10): 5 Allergies lorazepam Adverse Reaction (Intermediate, Verified 01/31/24 14:02) Other Medications ???Medication ???Instructions ???Recorded ???Confirmed ???Type valsartan 80 mg tablet 80 mg PO BID HTN 09/27/23 01/31/24 History hydroxychloroquine 200 mg tablet 200 mg PO BID 10/06/23 01/31/24 History acetaminophen 325 mg tablet 650 mg (2 x 325 mg) PO Q6H PRN PRN 10/10/23 01/31/24 Rx Pain 1-10 Or Fever >100.7 #0 tabs calcium carbonate 1,000 mg (5 x 200 mg calcium (500 10/10/23 01/31/24 Rx mg)) PO Q6H PRN PRN Heartburn Or Indigestion #0 tabs pantoprazole 40 mg tablet,delayed 40 mg PO DAILY 5 days #0 tabs 10/10/23 01/31/24 Rx release atenolol 25 mg tablet 25 mg PO QDAY 12/16/23 01/31/24 History atorvastatin 10 mg tablet 10 mg PO QDAY 12/16/23 01/31/24 History Have you fallen in the past year?: Yes PFSH Medical History Cervical myelopathy Carotid stenosis Dizziness GERD (gastroesophageal reflux disease) Hypertension Surgical History H/O carpal tunnel repair Rotator cuff tear, left lumbarectomy Family History Father Cancer Prostate CA Mother Hypertension Myocardial infarction at 73 of NE and pulmonary HTN Social History household members: none Smoking Status: Former smoker how long ago did patient quit smokin years ago alcohol intake: never substance use type: does not use what type of physical activity do you participate in: walking frequency: 5-6 times per week duration: 45-60 minutes/day seatbelt use: always HPI left shoulder Details: This documentation accurately reflects the service provided and the decisions made by me, Dr. Raul Bond MD 01/31/24 1400. Part of today???s visit was documented by [ ], acting as scribe. LIA GALLEGOS is a 83 year old M here today for left shoulder pain. 3 years, getting worse, lateral side. RHD. likes to walk a couple miles. retired. feels weak. the injection took the edge off. mild now but up to a 10 sometimes. had prp in the right knee that was effective[place] painful when driving to the left shoulder but better with the recent injection. [place] - voltarin, a couple weeks ago had a cortisone injection. Ortho Exam General General: Yes no acute distress Neurologic: Yes alert and Yes oriented x3 Psychologic: Yes reasonable and appropriate Left Shoulder Skin/Wound: No ecchymosis, No erythema and No swelling Testing: No Hawkin's, Yes Neer's, No Speed's, No TTP Biceps, No TTP AC Joint, Yes empty can and No cross arm SHOULDER: no effusion mild crepitus Active and passive forward ovation 90 degrees. ER 25. biceps look symmetrical nvi to ax, mru and ain/pin. strong radial pulse. strength fe 4-/5. er 5/5. subscap w bear hug 5/5. Supplemental Info [facility] [address] [place] [address] Shoulder min 2 Views MR#: [id number] Acct: [id number] Name: LIA GALLEGOS Rep #: [id number] : 1940 M 83 From: Consuelo Felix MD PCP: Dr. Brabara Mills, DO Status: DEP AMB Study: Shoulder min 2 Views Date of Exam: 01/18/24 Exam# [id number] Ordering Dr: Charles Ramey DO [id number] INDICATION: pain EXAMINATION/TECHNIQUE: X-RAY - LEFT XR Shoulder Min 2 Views 4 VIEWS COMPARISON: Prior study dated: Right shoulder dated September 13, 2023 FINDINGS: SOFT TISSUES: There are calcific densities adjacent to the humeral head system with calcific tendinitis. No radiopaque foreign body. BONES/JOINTS: The bones are diffusely demineralized. There is superior migration of the humeral head. There are degenerative changes of the acromioclavicular and glenohumeral joints. No sclerotic or destructive changes observed. RAD/Shoulder min 2 Views IMPRESSION: Superior migration of the humeral head suggestive of rotator cuff pathology. Degener (more content not included)... Normal [facility] Orthopedic Visit Reporton Orthopedic Visit Report [facility] [address] [place] [address] OFFICE VISIT Date of Service: 01/18/24 MR#: [id number] Acct: [id number] Name: LIA GALLEGOS Rep #: [id number] : 1940 Provider: Dr. Charles armijo DO Age/Sex: 83/M Location: [facility] Status: Signed Intake Vital Signs 12/13/23 15:46 01/18/24 11:21 Height 6 ft 1 in 6 ft 1 in Weight: 176 lb 4 oz BMI 23.2 Intake Visit Reasons: LEFT SHOULDER Allergies lorazepam Adverse Reaction (Intermediate, Verified 12/16/23 08:56) Other Have you fallen in the past year?: No PFSH Medical History Cervical myelopathy Carotid stenosis Dizziness GERD (gastroesophageal reflux disease) Hypertension Surgical History H/O carpal tunnel repair Rotator cuff tear, left lumbarectomy Family History Father Cancer Prostate CA Mother Hypertension Myocardial infarction at 73 of NE and pulmonary HTN Social History household members: none Smoking Status: Former smoker how long ago did patient quit smokin years ago alcohol intake: never substance use type: does not use what type of physical activity do you participate in: walking frequency: 5-6 times per week duration: 45-60 minutes/day seatbelt use: always HPI LEFT SHOULDER Details: This documentation accurately reflects the service provided and the decisions made by me, Dr. Charles Ramey, DO 01/18/24 0810. Part of today???s visit was documented by Heidi VALADEZ, acting as scribe. LIA GALLEGOS is a 83 year old M here today for left shoulder pain. He states that he has had pain off and on for 6 years but recently within the past 2 months he has had increased pain. He believes in the past he may have been diagnosed with a torn biceps tendon 6-8 years ago when he was seeing Dr. Chapa. He states that his pain is over his lateral shoulder and his biceps area. He denies any known injury or surgery. He has had xrays with [facility] in the past but no MRI. He denies neck pain. He denies radiating pain, numbness and tingling. He states that position increase his pain like when he is driving, sitting or trying to sleep at night. He takes Tylenol and Ibuprofen for the pain. He denies PT and injections. He did have a fall in October and had landed on his back. Ortho Exam General General: Yes no acute distress Neurologic: Yes alert and Yes oriented x3 Psychologic: Yes reasonable and appropriate Left Shoulder Skin/Wound: No ecchymosis, No erythema and No swelling Testing: No TTP Biceps, No TTP AC Joint and No translation SHOULDER: no effusion obvious crepitation 83 with pain 85 ER 18 IR 80 biceps look symmetrical Intact deltoid contraction intact sensation over axillary nerve. Office Procedures Ortho Injections Injections Yes Subacromial Injection Left Is this a patient provided medication?: No Details: Obtained consent for injection. Under sterile conditions, injected the patients left subacromial with 4cc bupivacaine 4cc lidocaine 1.5cc depo medrol. The patient tolerated the injection well without any noted complication. Patient should call our office if redness develops, pain worsens or if they have any concerns. Office Meds Depo-Medrol 40 mg/mL suspension for injection Performing Provider: Charles Ramey DO Performing Location: [facility] Administered by: Charles Ramey DO on 01/18/24 11:58 Dose Route Admin Location Dispensed Lot Number Expiration Date NDSamuel Freitas ufacturer 60 mg intra-articular left subacromial 1.5 mL [id number] 01/16/25 3864-7353-50 [employer]ARMAC[employer]-UPJHN Supplemental Info 01/18/2024 x-ray left shoulder: There is glenohumeral arthrosis there is superior migration of the humeral head with acetabularization of the acromion Coding Level of Care Code Off vis,est,level 4 Diagnoses Left rotator cuff tear arthropathy M75.102; M12.812 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 Discussed with patient that his xrays show rotator cuff arthropathy. Discussed that his treatment options are do nothing, steroid injection, physical therapy, or a reverse total shoulder replacement. Patient wishes to proceed with an (more content not included)... Normal [facility] Shoulder min 2 Viewson 01-17 Shoulder min 2 Views [facility] [address] [place] [address] Shoulder min 2 Views MR#: [id number] Acct: [id number] Name: LIA GALLEGOS Rep #: [id number] : 1940 M 83 From: Consuelo Felix MD PCP: Dr. Barbara Mills DO Status: DEP AMB Study: Shoulder min 2 Views Date of Exam: 01/18/24 Exam# [id number] Ordering Dr: Charles Ramey DO [id number] INDICATION: pain EXAMINATION/TECHNIQUE: X-RAY - LEFT XR Shoulder Min 2 Views 4 VIEWS COMPARISON: Prior study dated: Right shoulder dated September 13, 2023 FINDINGS: SOFT TISSUES: There are calcific densities adjacent to the humeral head system with calcific tendinitis. No radiopaque foreign body. BONES/JOINTS: The bones are diffusely demineralized. There is superior migration of the humeral head. There are degenerative changes of the acromioclavicular and glenohumeral joints. No sclerotic or destructive changes observed. RAD/Shoulder min 2 Views IMPRESSION: Superior migration of the humeral head suggestive of rotator cuff pathology. Degenerative changes. Calcific tendinitis. Electronically Signed: Consuelo Felix MD at 8:12 EDT , CC: Dr. Barbara Mills DO; Dr. Charles Ramey DO Clinical Supervisor: Signed Normal [facility] L/S Spine Min 4 Views11-18 L/S Spine Min 4 Views [facility] [address] [place] [address] L/S Spine Min 4 Views MR#: [id number] Acct: [id number] Name: LIA GALLEGOS Rep #: [id number] : 1940 M 83 From: Casper Mayen MD PCP: Dr. Barbara Mills DO Status: DEP AMB Study: L/S Spine Min 4 Views Date of Exam: 12/16/23 Exam# [id number] Ordering Dr: Yelena Carey [id number] EXAM: XR LUMBOSACRAL SPINE, 4 OR 5 VIEWS CLINICAL INDICATION: Low back pain -- Please do upright AP, LAT, flex/extension TECHNIQUE: Frontal, lateral and bilateral oblique views of the lumbar spine. COMPARISON: 11/30/2021 FINDINGS: VERTEBRAE: There is a superior endplate compression of L1 which is mildly increased from the reference exam. There is no change in alignment with flexion or extension views. No spondylolisthesis. Preservation of the normal lumbar lordosis. No significant facet arthropathy. DISC SPACES: There is disc space narrowing at L2-3, L3-4 and L4-5. GASTROINTESTINAL TRACT: Unremarkable as visualized. Included bowel gas pattern is non-obstructive. RAD/L/S Spine Min 4 Views IMPRESSION: Mild progression of a superior endplate compression deformity of L1 compared to the reference exam. There is multilevel degenerative change with disc space narrowing. There are no acute osseous abnormalities. Electronically Signed: Casper Mayen MD at 17:48 EDT , CC: KATARINA Marino; Dr. Barbara Mills DO Clinical Supervisor: Signed Normal [facility] Orthopedic Visit Reporton Orthopedic Visit Report [facility] [address] [place] [address] OFFICE VISIT Date of Service: 12/16/23 MR#: [id number] Acct: [id number] Name: LIA GALLEGOS Rep #: [id number] : 1940 Provider: Dr. Nithin Valdovinos MD Age/Sex: 83/M Location: [facility] Status: Signed Intake Vital Signs 10/15/23 16:11 12/13/23 15:46 Height 6 ft 1 in 6 ft 1 in Intake Visit Reasons: LUMBAR SPINE Chief Complaint: lumbar spine Is patient in pain?: Yes (low back ) Pain scale (1-10): 1 Allergies lorazepam Adverse Reaction (Intermediate, Verified 12/16/23 08:56) Other Medications ???Medication ???Instructions ???Recorded ???Confirmed ???Type valsartan 80 mg tablet 80 mg PO BID HTN 09/27/23 11/08/23 History hydroxychloroquine 200 mg tablet 200 mg PO BID 10/06/23 11/08/23 History acetaminophen 325 mg tablet 650 mg (2 x 325 mg) PO Q6H PRN PRN 10/10/23 11/08/23 Rx Pain 1-10 Or Fever >100.7 #0 tabs calcium carbonate 1,000 mg (5 x 200 mg calcium (500 10/10/23 11/08/23 Rx mg)) PO Q6H PRN PRN Heartburn Or Indigestion #0 tabs pantoprazole 40 mg tablet,delayed 40 mg PO DAILY 5 days #0 tabs 10/10/23 11/08/23 Rx release atenolol 25 mg tablet 25 mg PO QDAY 12/16/23 12/16/23 History atorvastatin 10 mg tablet 10 mg PO QDAY 12/16/23 12/16/23 History Have you fallen in the past year?: Yes PFSH Medical History Cervical myelopathy Carotid stenosis Dizziness GERD (gastroesophageal reflux disease) Hypertension Surgical History H/O carpal tunnel repair Rotator cuff tear, left lumbarectomy Family History Father Cancer Prostate CA Mother Hypertension Myocardial infarction at 73 of NE and pulmonary HTN Social History household members: none Smoking Status: Former smoker how long ago did patient quit smokin years ago alcohol intake: never substance use type: does not use what type of physical activity do you participate in: walking frequency: 5-6 times per week duration: 45-60 minutes/day seatbelt use: always HPI LUMBAR SPINE Chief Complaint: lumbar spine Details: This documentation accurately reflects the service provided and the decisions made by me, Dr. Nithin Valdovinos MD 12/16/23 0886. Part of today???s visit was documented by [ ], acting as scribe. LIA GALLEGOS is a 83 year old M here today for lumbar spine MRI review. Pt. advises he has been experiencing low back pain for the last 2 years after a fall in which incurred a fracture of L1 and then fell again in October 2023 and fractured T12. He fell backwards onto the floor. He did not get anything done for those fractures at the time of injury. He states going up and down stairs increases his pain as well as sitting in a hard chair. He denies pain numbness or tingling in his BLE. He had a lumbar laminectomy in 1979. He denies previous injections or recent PT. He was seen by [facility] and would like a second opinion. He was last seen here 11/09/23 after his injury but did not mention this fall then because it hasn't been causing him much pain at that time. His neck has been doing well with some numbness in his R hand without dexterity issues. The numbness lasts 5-10 minutes before resolving. Denies any falls since the one in October. Says his balance has been normal. Ortho Exam General General: Yes no acute distress Neurologic: Yes alert and Yes oriented x3 Spine SPINE TESTING CERVICAL THORACIC LUMBAR Musculoskeletal Strength 0=absent - 5=normal Details: Neurological exam of the lower extremities shows 5x5 power. Normal sensation across all dermatomes. No midline or paraspinal tenderness. Coding Level of Care Code Off vis,est,level 4 Diagnoses Compression fracture of T12 vertebra, initial encounter S22.080A Encounter type: initial encounter Compression fracture of L1 vertebra, initial encounter S32.010A Encounter type: initial encounter Time Spent (min) 35 Assessment and Plan Assessment and Plan (1) T12 compression fracture: Status: Acute Qualifiers: Encounter type: initial encounter Qualified Code(s): S22.080A - Wedge compression fracture of T11-T12 vertebra, initial encounter for closed fracture (2) Compression fracture of L1 lumbar vertebra: Status: Acute Qualifiers: Encounter type: initial encounter Qualified Code(s): S32.010A - Wedge compression fracture of first lumbar vertebra, initial encounter for closed fracture Orders: Orders L/S Spine Min 4 Views Today M54.50 - Low back pain, unspecified Plan Obtained and reviewed xrays today with the patient. Reviewed prior MRI from 12/01/23. Acut (more content not included)... Normal [facility] Spine Lumbar (Routine)on Spine Lumbar (Routine) [facility] [address], [place] [id number] Spine Lumbar (Routine) MR#: [id number] Acct: [id number] Name: LIA GALLEGOS Rep #: [id number] : 1940 M 83 From: Patric Greenwood MD PCP: Dr. Barbara Mills DO Status: REG CLI Study: Spine Lumbar (Routine) Date of Exam: 12/01/23 Exam# [id number] Ordering Dr: Olman Wright DO [id number] STUDY: MRI LUMBAR SPINE WITHOUT CONTRAST REASON FOR EXAM: Male, 83 years old. RADICULOPATHY, DISC DEGEN TECHNIQUE: Standardized fat and water weighted pulse sequences were obtained in the sagittal and axial planes. COMPARISON: 12/23/2021 FINDINGS: T12-L1: Normal endplates. Normal disc height, hydration and morphology. Normal bilateral facet joints. Normal central canal and bilateral lateral recesses. Normal bilateral intervertebral neural foramina. Normal lumbar lordosis. Mild levoscoliosis centered at L4. Normal conus medullaris that terminates at the L1/L2. Mild loss of height and wedging deformity of the T12 vertebral body with marrow edema along the superior endplate consistent with an acute mild compression fracture. No retropulsion into the spinal canal. Increased loss of height of the L1 vertebral body with marrow edema consistent with an acute on chronic wedge compression fracture also without retropulsion of the spinal canal but with some focal kyphosis. L1-2: Normal endplates. Normal disc height, hydration and morphology. Normal bilateral facet joints. Normal central canal and bilateral lateral recesses. Normal bilateral intervertebral neural foramina. L2-3: No change in the moderate broad disc protrusion which produces moderate spinal stenosis with moderate lateral recess stenosis, mild left lateral recess stenosis and mild bilateral neural foraminal stenosis. L3-4: No change in mild broad disc osteophyte complex produce mild spinal stenosis and mild bilateral neural foraminal stenosis. L4-5: No change in mild broad disc protrusion with resultant mild spinal stenosis and mild bilateral neural foraminal stenosis. L5-S1: No change in the mild broad disc protrusion asymmetric to the left producing mild spinal stenosis and mild left neural foraminal stenosis. Normal visualized sacral ala. Normal visualized paraspinous soft tissue structures. MRI/Spine Lumbar (Routine) IMPRESSION: Acute mild wedge compression fracture of T12 without retropulsion into the spinal canal. Acute on chronic moderate wedge compression fracture of L1 without retropulsion and spinal canal but with focal kyphosis. No change in mild levoscoliosis and degenerative disc disease as described above. Electronically Signed: Patric Greenwood MD at 10:55 EDT , CC: Dr. Barbara Mills, DO; Dr. Olman Wright, Clinical Supervisor: Signed Normal [facility] .Auto Diffon 10-04-2023 Basophil, Absolute 0.0 10 3/mcL Normal 0.0-0.2 [facility] ([place]) Comment on above: Performed By: #### T ORESTES, PBNP, ADIFF, CBC, ANEU, LIP, MDW, GFR, CMP #### [address] [address] Basophils/100 WBC (Bld) 0.2 % Normal 0.0-2.5 [facility] ([place]) Comment on above: Performed By: #### T ORESTES, PBNP, ADIFF, CBC, ANEU, LIP, MDW, GFR, CMP #### [address] [address] Eosinophil, Absolute 0.0 10 3/mcL Normal 0.0-0.4 [facility] ([place]) Comment on above: Performed By: #### T ROPHS, PBNP, ADIFF, CBC, ANEU, LIP, MDW, GFR, CMP #### [address] [address] Eosinophils/100 WBC (Bld) 0.0 % Normal 0.0-7.0 [facility] ([place]) Comment on above: Performed By: #### T ROPHS, PBNP, ADIFF, CBC, ANEU, LIP, MDW, GFR, CMP #### [address] [address] Lymphocyte, Absolute 1.0 10 3/mcL Normal 0.8-3.9 [facility] ([place]) Comment on above: Performed By: #### T ROPHS, PBNP, ADIFF, CBC, ANEU, LIP, MDW, GFR, CMP #### [address] [address] Lymphocytes/100 WBC (Bld) 6.3 % Low 10.0-50.0 [facility] ([place]) Comment on above: Performed By: #### T ROPHS, PBNP, ADIFF, CBC, ANEU, LIP, MDW, GFR, CMP #### [address] [address] Monocyte, Absolute 0.7 10 3/mcL Normal 0.2-1.0 [facility] ([place]) Comment on above: Performed By: #### T ROPHS, PBNP, ADIFF, CBC, ANEU, LIP, MDW, GFR, CMP #### [address] [address] Monocytes/100 WBC (Bld) 4.4 % Normal 1.7-13.0 [facility] ([place]) Comment on above: Performed By: #### T ROPHS, PBNP, ADIFF, CBC, ANEU, LIP, MDW, GFR, CMP #### [address] [address] Neutrophils/100 WBC (Bld) 89.1 % High 37.0-80.0 [facility] ([place]) Comment on above: Performed By: #### T ROPHS, PBNP, ADIFF, CBC, ANEU, LIP, MDW, GFR, CMP #### [address] [address] .GFRon 10-04-2023 GFR 142 ml/min/1.73sqm Normal [facility] ([place]) Comment on above: Result Comment: GFR Population mean for , Non- Americans Ages 20-29 = 116 mL/min/1.73 sq.m. Ages 30-39 = 107 mL/min/1.73 sq.m. Ages 40-49 = 99 mL/min/1.73 sq.m. Ages 50-59 = 93 mL/min/1.73 sq.m. Ages 60-69 = 85 mL/min/1.73 sq.m. Ages 70+ = 75 mL/min/1.73 sq.m. Chronic Kidney Disease: Less than 60 mL/min/1.73 square meters End Stage Renal Disease: Less than 15 mL/min/1.73 square meters Performed By: #### T ROPHS, PBNP, ADIFF, CBC, ANEU, LIP, MDW, GFR, CMP #### [address] [address] GFR Non- 117 ml/min/1.73sqm Normal [facility] ([place]) Comment on above: Result Comment: GFR Population mean for , Non- Americans Ages 20-29 = 116 mL/min/1.73 sq.m. Ages 30-39 = 107 mL/min/1.73 sq.m. Ages 40-49 = 99 mL/min/1.73 sq.m. Ages 50-59 = 93 mL/min/1.73 sq.m. Ages 60-69 = 85 mL/min/1.73 sq.m. Ages 70+ = 75 mL/min/1.73 sq.m. Chronic Kidney Disease: Less than 60 mL/min/1.73 square meters End Stage Renal Disease: Less than 15 mL/min/1.73 square meters Performed By: #### T ROPHS, PBNP, ADIFF, CBC, ANEU, LIP, MDW, GFR, CMP #### [address] [address] .MDWon 10-04-2023 Monocyte Distribution Width 16.47 Normal 0.00-20.00 [facility] ([place]) Comment on above: Result Comment: For ED adult patients suspected of sepsis, MDW<=20.0 does not rule out sepsis or risk of sepsis Performed By: #### T ROPHS, PBNP, ADIFF, CBC, ANEU, LIP, MDW, GFR, CMP #### [address] [address] .NEUABSon 10-04-2023 Neutrophil, Absolute 14.3 10 3/mcL High 2.9-6.2 A [facility] ([place]) Comment on above: Performed By: #### T ROPHS, PBNP, ADIFF, CBC, ANEU, LIP, MDW, GFR, CMP #### [place] [address] .Urinalysis Microscopic (AO) on 10-04-2023 UA Amorphus 1+ /hpf Normal [facility] ([place]) Comment on above: Performed By: #### T ROPHS, PBNP, ADIFF, CBC, ANEU, LIP, MDW, GFR, CMP #### [place] [address] UA RBC None Seen Normal None Seen [facility] ([place]) Comment on above: Performed By: #### T ROPHS, PBNP, ADIFF, CBC, ANEU, LIP, MDW, GFR, CMP #### [place] [address] UA Squam Epithelial None Seen Normal None Seen [facility] ([place]) Comment on above: Performed By: #### T ROPHS, PBNP, ADIFF, CBC, ANEU, LIP, MDW, GFR, CMP #### [place] [address] UA WBC None Seen Normal None Seen [facility] ([place]) Comment on above: Performed By: #### T ROPHS, PBNP, ADIFF, CBC, ANEU, LIP, MDW, GFR, CMP #### [place] [address] CBCon 10-04-2023 Erythrocyte distribution width (RBC) [Ratio] 13.1 % Normal 11.5-14.5 [facility] ([place]) Comment on above: Performed By: #### T ROPHS, PBNP, ADIFF, CBC, ANEU, LIP, MDW, GFR, CMP #### [address] [address] Hematocrit (Bld) [Volume fraction] 43.6 % Normal 42.0-52.0 [facility] ([place]) Comment on above: Performed By: #### T ROPMARKO, PBNP, ADIFF, CBC, ANEU, LIP, MDW, GFR, CMP #### [address] [address] Hgb 15.4 G/dL Normal 14.0-18.0 [facility] ([place]) Comment on above: Performed By: #### T ROPHS, PBNP, ADIFF, CBC, ANEU, LIP, MDW, GFR, CMP #### [address] [address] MCH (RBC) [Entitic mass] 32.7 pg High 27.0-31.2 [facility] ([place]) Comment on above: Performed By: #### T ROPMARKO, PBNP, ADIFF, CBC, ANEU, LIP, MDW, GFR, CMP #### [address] [address] MCHC 35.3 G/dL Normal 31.8-35.4 [facility] ([place]) Comment on above: Performed By: #### T ROPMARKO, PBNP, ADIFF, CBC, ANEU, LIP, MDW, GFR, CMP #### [address] [address] MCV (RBC) [Entitic vol] 92.7 fL Normal 80.0-94.0 [facility] ([place]) Comment on above: Performed By: #### T ROPHS, PBNP, ADIFF, CBC, ANEU, LIP, MDW, GFR, CMP #### [address] [address] Platelet 234 10 3/mcL Normal 130-400 [facility] ([place]) Comment on above: Performed By: #### T ROPHS, PBNP, ADIFF, CBC, ANEU, LIP, MDW, GFR, CMP #### [address] [address] Platelet mean volume (Bld) [Entitic vol] 7.1 fL Low 7.4-10.4 [facility] ([place]) Comment on above: Performed By: #### T ROPMARKO, PBNP, ADIFF, CBC, ANEU, LIP, MDW, GFR, CMP #### [address] [address] RBC 4.71 10 6/mcL Normal 4.04-6.13 [facility] ([place]) Comment on above: Performed By: #### T ROPHS, PBNP, ADIFF, CBC, ANEU, LIP, MDW, GFR, CMP #### [address] [address] WBC 16.1 10 3/mcL High 4.6-10.8 [facility] ([place]) Comment on above: Performed By: #### T ROPMARKO, PBNP, ADIFF, CBC, ANEU, LIP, MDW, GFR, CMP #### [address] [address] CMPon 10-04-2023 Albumin Level 4.1 G/dL Normal 3.4-4.8 [facility]) Comment on above: Performed By: #### T ROPMARKO, PBNP, ADIFF, CBC, ANEU, LIP, MDW, GFR, CMP #### [address] [address] Albumin/Globulin [Mass ratio] 1.4 {ratio} Normal 1.1-2.5 [facility]) Comment on above: Performed By: #### T ROPHS, PBNP, ADIFF, CBC, ANEU, LIP, MDW, GFR, CMP #### [address] [address] ALP [Catalytic activity/Vol] 49 U/L Normal 40-135 [facility]) Comment on above: Performed By: #### T ROPHS, PBNP, ADIFF, CBC, ANEU, LIP, MDW, GFR, CMP #### [address] [address] ALT [Catalytic activity/Vol] 32 U/L Normal 16-63 [facility] ([place]) Comment on above: Performed By: #### T ROPMARKO, PBNP, ADIFF, CBC, ANEU, LIP, MDW, GFR, CMP #### [address] [address] AST [Catalytic activity/Vol] 14 U/L Normal 10-40 [facility] ([place]) Comment on above: Performed By: #### T ROPHS, PBNP, ADIFF, CBC, ANEU, LIP, MDW, GFR, CMP #### [address] [address] Bili Total 1.5 mg/dL High 0.2-1.0 [facility] ([place]) Comment on above: Result Comment: Use of this assay is not recommended for patients undergoing treatment with eltrombopag due to the potential for falsely elevated results. Performed By: #### T ORESTES, PBNP, ADIFF, CBC, ANEU, LIP, MDW, GFR, CMP #### [address] [address] BUN/Creatinine Ratio 15 ratio Normal 7-27 [facility] ([place]) Comment on above: Performed By: #### T ORESTES, PBNP, ADIFF, CBC, ANEU, LIP, MDW, GFR, CMP #### [address] [address] Calcium [Mass/Vol] 8.9 mg/dL Normal 8.4-10.2 [facility] ([place]) Comment on above: Performed By: #### T ROPHS, PBNP, ADIFF, CBC, ANEU, LIP, MDW, GFR, CMP #### [address] [address] Chloride [Moles/Vol] 94 mmol/L Low 98-107 [facility] ([place]) Comment on above: Performed By: #### T ROPHS, PBNP, ADIFF, CBC, ANEU, LIP, MDW, GFR, CMP #### [address] [address] CO2 [Moles/Vol] 27 mmol/L Normal 23-31 [facility] ([place]) Comment on above: Performed By: #### T ROPHS, PBNP, ADIFF, CBC, ANEU, LIP, MDW, GFR, CMP #### [address] [address] Creatinine [Mass/Vol] 0.65 mg/dL Low 0.70-1.30 [facility] [place] Comment on above: Performed By: #### T ROPHS, PBNP, ADIFF, CBC, ANEU, LIP, MDW, GFR, CMP #### [address] [address] Electrolyte Balance 11.0 mEq/L Normal 4.0-15.0 [facility] ([place]) Comment on above: Performed By: #### T ROPHS, PBNP, ADIFF, CBC, ANEU, LIP, MDW, GFR, CMP #### [address] [address] Globulin 3.0 G/dL Normal [facility] ([place]) Comment on above: Performed By: #### T ROPHS, PBNP, ADIFF, CBC, ANEU, LIP, MDW, GFR, CMP #### [address] [address] Glucose [Mass/Vol] 113 mg/dL High 83-110 [facility] ([place]) Comment on above: Performed By: #### T ROPHS, PBNP, ADIFF, CBC, ANEU, LIP, MDW, GFR, CMP #### [address] [address] Potassium [Moles/Vol] 3.7 mmol/L Normal 3.5-5.1 [facility] [place] Comment on above: Performed By: #### T ROPHS, PBNP, ADIFF, CBC, ANEU, LIP, MDW, GFR, CMP #### [address] [address] Sodium [Moles/Vol] 132 mmol/L Low 136-145 [facility] ([place]) Comment on above: Performed By: #### T ROPHS, PBNP, ADIFF, CBC, ANEU, LIP, MDW, GFR, CMP #### [address] [place], [place] [address] Total Protein 7.1 G/dL Normal 6.4-8.2 [facility] ([place]) Comment on above: Performed By: #### T ROPHS, PBNP, ADIFF, CBC, ANEU, LIP, MDW, GFR, CMP #### [address] [place], [place] [address] Urea nitrogen [Mass/Vol] 10 mg/dL Normal 7-18 [facility] ([place]) Comment on above: Performed By: #### T ROPHS, PBNP, ADIFF, CBC, ANEU, LIP, MDW, GFR, CMP #### [address] [place], [place] [address] LABORATORYOrdered By: Venancio Nuñez on 10-04-2023 Appearance (U) Slightly Cloudy *ABN* (10/04/23 11:31 PM) Invalid Interpretation Code Clear AO Auto Urine SS Bilirubin Ql (U) Negative (10/04/23 11:31 PM) Normal Negative AO Auto Urine SS Color (U) Yellow (10/04/23 11:31 PM) Normal AO Auto Urine SS Crystals.amorphous LM.HPF (Urine sed) [#/Area] 1 /[HPF] Normal AO Auto Urine SS Glucose Test strip (U) [Mass/Vol] Negative Normal Negative AO Auto Urine SS Hemoglobin Auto test strip (U) [Mass/Vol] Trace *ABN* (10/04/23 11:31 PM) Invalid Interpretation Code Negative AO Auto Urine SS Ketones Ql (U) 40 mg/dL Invalid Interpretation Code Negative AO Auto Urine SS UA Leuk Est Negative (10/04/23 11:31 PM) Normal Negative AO Auto Urine SS UA Nitrite Negative (10/04/23 11:31 PM) Normal Negative AO Auto Urine SS UA pH 8.0 (10/04/23 11:31 PM) Normal 5.0 - 8.0 AO Auto Urine SS UA Protein 30 mg/dL Normal Negative AO Auto Urine SS UA RBC None Seen /HPF Normal None Seen AO Auto Ur ine SS UA Spec Grav 1.020 (10/04/23 11:31 PM) Normal 1.015-1.02 5 AO Auto Urine SS UA Specimen Type Void (10/04/23 11:31 PM) Normal AO Auto Urine SS UA Squam Epithelial None Seen /HPF Normal None Seen A O Auto Urine SS UA Urobilinogen 0.2 E.U./dL Normal 0.2-1.0 AO Auto Urine SS WBC LM.HPF (Urine sed) [#/Area] None Seen /HPF Normal None Seen AO Auto Urine SS LABORATORYOrdered By: SYSTEM SYSTEM on 10-04-2023 Albumin BCP dye [Mass/Vol] 4.1 G/dL Normal 3.4 - 4.8 G/dL AO ADM SS Albumin/Globulin [Mass ratio] 1.4 {ratio} Normal 1.1 - 2.5 ratio AO ADM SS ALP [Catalytic activity/Vol] 49 U/L Normal 40 - 135 U/L AO ADM SS ALT With P-5'-P [Catalytic activity/Vol] 32 U/L Normal 16 - 63 U/L AO ADM SS AST With P-5'-P [Catalytic activity/Vol] 14 U/L Normal 10 - 40 U/L AO ADM SS Basophil, Absolute 0.0 103/mcL Normal 0.0 - 0.2 10^3/mcL AO Workflow SS Basophils/100 WBC (Bld) 0.2 % Normal 0.0 - 2.5 % AO Workflow SS Bilirubin [Mass/Vol] 1.5 mg/dL High 0.2 - 1 .0 mg/dL AO ADM SS Comment on above: Interpretive Data: U se of this assay is not recommended for patients undergoing treatment with eltrombopag due to the potential for falsely elevated results. Calcium [Mass/Vol] 8.9 mg/dL Normal 8.4 - 10. 2 mg/dL AO ADM SS Chloride [Moles/Vol] 94 mmol/L Low 98 - 10 7 mmol/L AO ADM SS CO2 [Moles/Vol] 27 mmol/L Normal 23 - 31 mmol/L AO ADM SS Creatinine [Mass/Vol] 0.65 mg/dL Low 0.70 - 1.30 mg/dL AO ADM SS Electrolyte Balance 11.0 mEq/L Normal 4.0 - 15 .0 mEq/L AO ADM SS Eosinophil, Absolute 0.0 103/mcL Normal 0.0 - 0 .4 10^3/mcL AO Workflow SS Eosinophils/100 WBC (Bld) 0.0 % Normal 0.0 - 7.0 % AO Workflow SS Erythrocyte distribution width (RBC) [Ratio] 13.1 % Normal 11.5 - 14.5 % AO Workflow SS GFR/1.73 sq M.predicted among blacks MDRD (S/P/Bld) [Vol rate/Area] 142 ml/min/1.73sqm Invalid Interpretation Code AO Chemistry S Comment on above: Interpretive Data: GFR Population mean for , Non- Americans Ages 20-29 = 116 mL/min/1.73 sq.m. Ages 30-39 = 107 mL/min/1.73 sq.m. Ages 40-49 = 99 mL/min/1.73 sq.m. Ages 50-59 = 93 mL/min/1.73 sq.m. Ages 60-69 = 85 mL/min/1.73 sq.m. Ages 70+ = 75 mL/min/1.73 sq.m. Chronic Kidney Disease: Less than 60 mL/min/1.73 square meters End Stage Renal Disease: Less than 15 mL/min/1.73 square meters GFR/1.73 sq M.predicted among non-blacks MDRD (S/P/Bld) [Vol rate/Area] 117 ml/min/1.73sqm Invalid Interpretation Code AO Chemistry S Comment on above: Interpretive Data: GFR Population mean for , Non- Americans Ages 20-29 = 116 mL/min/1.73 sq.m. Ages 30-39 = 107 mL/min/1.73 sq.m. Ages 40-49 = 99 mL/min/1.73 sq.m. Ages 50-59 = 93 mL/min/1.73 sq.m. Ages 60-69 = 85 mL/min/1.73 sq.m. Ages 70+ = 75 mL/min/1.73 sq.m. Chronic Kidney Disease: Less than 60 mL/min/1.73 square meters End Stage Renal Disease: Less than 15 mL/min/1.73 square meters Globulin 3.0 G/dL Invalid Interpretation Code AO ADM SS Glucose [Mass/Vol] 113 mg/dL High 83 - 110 mg/dL AO ADM SS Hematocrit (Bld) [Volume fraction] 43.6 % Normal 42.0 - 52.0 % AO Workflow SS Hemoglobin (Bld) [Mass/Vol] 15.4 G/dL Normal 14.0 - 18.0 G/dL AO Workflow SS Lipase [Catalytic activity/Vol] 28 U/L Normal 16 - 77 U/L AO ADM SS Lymphocyte, Absolute 1.0 103/mcL Normal 0.8 - 3 .9 10^3/mcL AO Workflow SS Lymphocytes/100 WBC (Bld) 6.3 % Low 10.0 - 50.0 % AO Workflow SS MCH (RBC) [Entitic mass] 32.7 pg High 27.0 - 31.2 pg AO Workflow SS MCHC 35.3 G/dL Normal 31.8 - 35.4 G/dL AO Workflow SS MCV (RBC) [Entitic vol] 92.7 fL Normal 80.0 - 94.0 fL AO Workflow SS Monocyte distribution width Auto (Bld) [Entitic vol] 16.47 1 Normal 0.00 - 20.00 AO Workflow SS Comment on above: Result Comment: For ED adult patients suspected of sepsis, MDW<=20.0 does not rule out sepsis or risk of sepsis Monocyte, Absolute 0.7 103/mcL Normal 0.2 - 1.0 10^3/mcL AO Workflow SS Monocytes/100 WBC (Bld) 4.4 % Normal 1.7 - 13.0 % AO Workflow SS Natriuretic peptide.B prohormone N-Terminal [Mass/Vol] 186 pg/mL Normal 0 - 450 pg/mL AO ADM SS Comment on above: Interpretive Data: N T-proBNP results of less than 300 pg/mL effectively rules out acute congestive heart failure with 99% negative predictive value. Neutrophil, Absolute 14.3 103/mcL High 2.9 - 6 .2 10^3/mcL AO Workflow SS Neutrophils/100 WBC (Bld) 89.1 % High 37.0 - 80.0 % AO Workflow SS Platelet mean volume (Bld) [Entitic vol] 7.1 fL Low 7.4 - 10.4 fL AO Workflow SS Platelets (Bld) [#/Vol] 234 103/mcL Normal 130 - 400 10^3/mcL AO Workflow SS Potassium [Moles/Vol] 3.7 mmol/L Normal 3.5 - 5.1 mmol/L AO ADM SS Protein [Mass/Vol] 7.1 G/dL Normal 6.4 - 8.2 G/dL AO ADM SS RBC (Bld) [#/Vol] 4.71 106/mcL Normal 4.04 - 6.13 10^6/mcL AO Workflow SS Sodium [Moles/Vol] 132 mmol/L Low 136 - 145 mmol/L AO ADM SS Troponin I.cardiac DL <= 0.01 ng/mL [Mass/Vol] 14 ng/L Normal 0 - 76 ng/L AO ADM SS Comment on above: Interpretive Data: H igh Sensitive Troponin I Reference Ranges: Female: 0-51 ng/L Male: 0-76 ng/L Testing performed on Dimension EXL using a homogeneous sandwich chemiluminescent immunoassay based on [employer] technology. Urea nitrogen [Mass/Vol] 10 mg/dL Normal 7 - 18 mg/dL AO ADM SS Urea nitrogen/Creatinine [Mass ratio] 15 ratio Normal 7 - 27 ratio AO ADM SS WBC (Bld) [#/Vol] 16.1 103/mcL High 4.6 - 10.8 10^3/mcL AO Workflow SS LIPon 10-04-2023 Lipase Level 28 U/L Normal 16-77 [facility] ([place]) Comment on above: Performed By: #### T ORESTES, PBNP, ADIFF, CBC, ANEU, LIP, MDW, GFR, CMP #### [address] [address] PBNPon 10-04-2023 Natriuretic peptide B (Bld) [Mass/Vol] 186 pg/mL Normal 0-450 [facility] ([place]) Comment on above: Result Comment: NT-p roBNP results of less than 300 pg/mL effectively rules out acute congestive heart failure with 99% negative predictive value. Performed By: #### T ORESTES, PBNP, ADIFF, CBC, ANEU, LIP, MDW, GFR, CMP #### [address] [address] TROPHSon 10-04-2023 High Sensitivity Troponin I 14 ng/L Normal 0-76 [facility] ([place]) Comment on above: Result Comment: High Sensitive Troponin I Reference Ranges: Female: 0-51 ng/L Male: 0-76 ng/L Testing performed on Dimension EXL using a homogeneous sandwich chemiluminescent immunoassay based on [employer] technology. Performed By: #### T SUZYHS, PBNP, ADIFF, CBC, ANEU, LIP, MDW, GFR, CMP #### [address] [address] UAon 10-04-2023 Color (U) Yellow Normal [facility] ([place]) Comment on above: Performed By: #### T ROPHS, PBNP, ADIFF, CBC, ANEU, LIP, MDW, GFR, CMP #### [address] [address] Glucose (U) [Mass/Vol] Negative Normal Negative [facility] ([place]) Comment on above: Performed By: #### T ROPHS, PBNP, ADIFF, CBC, ANEU, LIP, MDW, GFR, CMP #### [place] [address] Ketones Ql (U) 40 mg/dL Abnormal Negative [facility] ([place]) Comment on above: Performed By: #### T ROPHS, PBNP, ADIFF, CBC, ANEU, LIP, MDW, GFR, CMP #### [address] [address] UA Appear Slightly Cloudy Abnormal Clear [facility] ([place]) Comment on above: Performed By: #### T ROPMARKO, PBNP, ADIFF, CBC, ANEU, LIP, MDW, GFR, CMP #### [address] [address] UA Blood Trace Abnormal Negative [facility] ([place]) Comment on above: Performed By: #### T ROPHS, PBNP, ADIFF, CBC, ANEU, LIP, MDW, GFR, CMP #### [address] [address] UA Leuk Est Negative Normal Negative [facility] ([place]) Comment on above: Performed By: #### T ROPHS, PBNP, ADIFF, CBC, ANEU, LIP, MDW, GFR, CMP #### [address] [address] UA Nitrite Negative Normal Negative [facility] ([place]) Comment on above: Performed By: #### T ROPHS, PBNP, ADIFF, CBC, ANEU, LIP, MDW, GFR, CMP #### [address] [address] UA pH 8.0 Normal 5.0 - 8.0 [facility] ([place]) Comment on above: Performed By: #### T ROPHS, PBNP, ADIFF, CBC, ANEU, LIP, MDW, GFR, CMP #### [address] [address] UA Protein 30 mg/dL Normal Negative [facility] ([place]) Comment on above: Performed By: #### T ROPHS, PBNP, ADIFF, CBC, ANEU, LIP, MDW, GFR, CMP #### [address] [address] UA Spec Grav 1.020 Normal 1.015-1.02 5 [facility]) Comment on above: Performed By: #### T ORESTES, PBNP, ADIFF, CBC, ANEU, LIP, MDW, GFR, CMP #### [address] [address] UA Specimen Type Void Normal [facility] ([place]) Comment on above: Performed By: #### T ORESTES, PBNP, ADIFF, CBC, ANEU, LIP, MDW, GFR, CMP #### [address] [address] UA Urobilinogen 0.2 E.U./dL Normal 0.2-1.0 [facility] ([place]) Comment on above: Performed By: #### T ROPHS, PBNP, ADIFF, CBC, ANEU, LIP, MDW, GFR, CMP #### [address] [address] Urobilinogen (U) [Mass/Vol] Negative Normal Negative [facility] ([place]) Comment on above: Performed By: #### T ROPHS, PBNP, ADIFF, CBC, ANEU, LIP, MDW, GFR, CMP #### [address] [address] XR CHEST 1 VIEWon 10-04-2023 XR CHEST 1 VIEW ORIGINAL EXAMINATION: ONE XRAY VIEW OF THE CHEST 10/04/2023 11:10 pm COMPARISON: Right shoulder x-ray 02/05/2019 HISTORY: ORDERING SYSTEM PROVIDED HISTORY: Reason for Exam: Nausea vomiting illness FINDINGS: Cardiomediastinal contour is normal. Atherosclerosis of the aorta. No focal consolidation or pulmonary edema. No pneumothorax or pleural effusion. No acute osseous abnormality. Right humeral head tendon fixation devices. IMPRESSION: No acute radiographic abnormality. I have personally reviewed the images of this examination and agree with the resident's findings and interpretation. Interpreted by: Humble Russell Preliminary Report By: Oscar Jefferson Electronically signed By Humble Russell Dictated Date: 10/04/2023 11:13:41 PM Prelim Date: 10/04/2023 11:14:42 PM Sign Date: 10/04/2023 11:19:30 PM Ordering Provider: SHILO Barcenas [facility] ([place]) Streptococcus pyogenes rRNA detection in throat by DNA probeOrdered By: Arpit Manuel on 06-21-2023 S. pyogenes rRNA Probe Ql (Throat) [facility] CT CARDIAC SCORING WO IV CON TRASTon 04-20-2023 CT CARDIAC SCORING WO IV CONTRAST Interpreted By: Pawan Dunbar and Tavana Shahrzad STUDY: CT CARDIAC SCORING WO IV CONTRAST; 04/20/2023 2:45 pm INDICATION: Signs/Symptoms:SCREENING . COMPARISON: None. ACCESSION NUMBER(S): [id number] ORDERING CLINICIAN: BARBARA MILLS TECHNIQUE: Using prospective ECG gating, limited CT scan of the chest for evaluation of coronary arteries was performed without intravenous contrast. Coronary calcium scoring was performed according to the method of Agatston. FINDINGS: The score and distribution of calcium in the coronary arteries is as follows: LM: 101.13. LAD: 81.49. LCx: 0. RCA: 0. Total: 182.62. The visualized segments of the lungs demonstrate a small calcified granuloma within the left upper lobe.. Mild patchy bibasilar infiltrates/atelectasis. The visualized mid/lower ascending thoracic aorta measures 3.7 cm in diameter. Mildcalcifications of the aortic valve noted. Correlate with clinical concerns for aortic stenosis. Mild diffuse prominence descending segment up to 2.9 cm caliber. Calcifications visualized thoracic aorta. The heart is mildly enlarged. No significant pericardial effusion is present. No gross evidence of mediastinal or hilar lymphadenopathy is identified. The visualized subdiaphragmatic structures appear grossly intact. A tiny splenule is noted in the left upper quadrant. IMPRESSION: 1. Coronary artery calcium score of 182.62*. 2. Additional findings as above. *Coronary artery calcium scoring may be helpful in predicting the risk for future coronary heart disease events. According to the [employer] Clinical Expert Consensus Task Force, such testing provides important prognostic information in patients with more than one coronary heart disease risk factor. The coronary artery calcium score correlates with the annual risk of a non-fatal myocardial infarction or coronary heart disease . Coronary artery score Annual Risk 0-99 0.4% 100-399 1.3% >400 2.4% These three breakpoints correspond to lower, intermediate and high risk states for future coronary events. Such information should be used, along with appropriate clinical judgment, to make decisions regarding the intensity of risk factor management strategies to treat blood lipids and to modify other non-lipid coronary risk factors. Reference: Guatay P et al. Circulation. 2007; 115:402-426 I personally reviewed the images/study and I agree with the findings as stated. This study was interpreted at [facility], [place], [place]. MACRO: None Signed by: Pawan Dunbar 04/21/2023 5:07 PM Dictation workstation: [id number] [facility] C-REACT PROT HIGH SENS(hsCRP ) ([id number])Ordered By: Inductor Tester on 12-06-2022 CRP High sensitivity method [Mass/Vol] 5.18 mg/L Abnormal 0.00-3.00 [facility]; [facility] Work Phone: CBC W/AUTO DIFF WBC ([id number])O rdered By: Inductor Tester on 12-06-2022 Basophils (Bld) [#/Vol] 0.0 10*3/uL Normal 0.0-0.2 [facility]; [facility] Work Phone: Basophils/100 WBC (Bld) 0 % Normal [facility]; [facility] Work Phone: Eosinophils (Bld) [#/Vol] 0.1 10*3/uL Normal 0.0-0.4 [facility]; [facility] Work Phone: Eosinophils/100 WBC (Bld) 1 % Normal [facility]; [facility] Work Phone: Erythrocyte distribution width (RBC) [Ratio] 12.4 % Normal 11.6-15.4 [facility]; [facility] Work Phone: Hematocrit (Bld) [Volume fraction] 38.8 % Normal 37.5-51.0 [facility]; [facility] Work Phone: Hemoglobin (Bld) [Mass/Vol] 13.8 g/dL Normal 13.0-17.7 [facility]; [facility] Work Phone: Immature granulocytes (Bld) [#/Vol] 0.0 10*3/uL Normal 0.0-0.1 [facility]; [facility] Work Phone: Immature granulocytes/100 WBC (Bld) 0 % Normal [facility]; [facility] Work Phone: Lymphocytes (Bld) [#/Vol] 1.2 10*3/uL Normal 0.7-3.1 [facility]; [facility] Work Phone: Lymphocytes/100 WBC (Bld) 21 % Normal [facility]; [facility] Work Phone: MCH (RBC) [Entitic mass] 32.7 pg Normal 26.6-33.0 [facility]; [facility] Work Phone: MCHC (RBC) [Mass/Vol] 35.6 g/dL Normal 31.5-35.7 [facility]; [facility] Work Phone: MCV (RBC) [Entitic vol] 92 fL Normal 79-97 [facility]; [facility] Work Phone: Monocytes (Bld) [#/Vol] 0.5 10*3/uL Normal 0.1-0.9 [facility]; [facility] Work Phone: Monocytes/100 WBC (Bld) 10 % Normal [facility]; [facility] Work Phone: Neutrophils (Bld) [#/Vol] 3.8 10*3/uL Normal 1.4-7.0 [facility]; [facility] Work Phone: Neutrophils/100 WBC (Bld) 68 % Normal [facility]; [facility] Work Phone: Platelets (Bld) [#/Vol] 189 10*3/uL Normal 150-450 [facility]; [facility] Work Phone: RBC (Bld) [#/Vol] 4.22 10*6/uL Normal 4.14-5.80 [facility]; [facility] Work Phone: WBC (Bld) [#/Vol] 5.6 10*3/uL Normal 3.4-10.8 [facility]; [facility] Work Phone: LIPID PANEL ([id number])Ordered B y: Inductor Tester on 12-06-2022 Cholesterol [Mass/Vol] 135 mg/dL Normal 100-199 [facility]; [facility] Work Phone: Cholesterol in HDL [Mass/Vol] 36 mg/dL Abnormal [facility]; [facility] Work Phone: Triglyceride [Mass/Vol] 57 mg/dL Normal 0-149 [facility]; [facility] Work Phone: LIPID PANEL ([id number]) 12 mg/dL Normal 5-40 [facility]; [facility] Work Phone: LIPID PANEL ([id number]) 87 mg/dL Normal 0-99 [facility]; [facility] Work Phone: LIPID PANEL ([id number]) 2.4 {ratio} Normal 0.0-3.6 [facility]; [facility] Work Phone: METABOLIC PANEL, COMPREHENSI VE ([id number])Ordered By: Inductor Tester on 12-06-2022 Albumin [Mass/Vol] 4.0 g/dL Normal 3.7-4.7 [facility]; [facility] Work Phone: Albumin/Globulin [Mass ratio] 1.7 {ratio} Normal 1.2-2.2 [facility]; [facility] Work Phone: ALP [Catalytic activity/Vol] 55 U/L Normal 44-121 [facility]; [facility] Work Phone: ALT [Catalytic activity/Vol] 12 U/L Normal 0-44 [facility]; [facility] Work Phone: AST [Catalytic activity/Vol] 16 U/L Normal 0-40 [facility]; [facility] Work Phone: Bilirubin [Mass/Vol] 1.0 mg/dL Normal 0.0-1.2 [facility]; [facility] Work Phone: Calcium [Mass/Vol] 9.0 mg/dL Normal 8.6-10.2 [facility]; [facility] Work Phone: Chloride [Moles/Vol] 102 mmol/L Normal 96-106 [facility]; [facility] Work Phone: CO2 [Moles/Vol] 25 mmol/L Normal 20-29 [facility]; [facility] Work Phone: Creatinine [Mass/Vol] 0.88 mg/dL Normal 0.76-1.27 [facility]; [facility] Work Phone: Globulin (S) [Mass/Vol] 2.3 g/dL Normal 1.5-4.5 [facility]; [facility] Work Phone: Glucose [Mass/Vol] 87 mg/dL Normal 70-99 [facility]; [facility] Work Phone: Potassium [Moles/Vol] 3.8 mmol/L Normal 3.5-5.2 [facility]; [facility] Work Phone: Protein [Mass/Vol] 6.3 g/dL Normal 6.0-8.5 [facility]; [facility] Work Phone: Sodium [Moles/Vol] 139 mmol/L Normal 134-144 [facility]; [facility] Work Phone: Urea nitrogen [Mass/Vol] 18 mg/dL Normal 8-27 [facility]; [facility] Work Phone: Urea nitrogen/Creatinine [Mass ratio] 20 mg/mg Normal 10-24 [facility]; [facility] Work Phone: METABOLIC PANEL, COMPREHENSIVE ([id number]) 86 mL/min/1.73 Normal [facility]; [facility] Work Phone: PSA (PROSTATE SPECIFIC ANTIG EN) (V76.44)Ordered By: Inductor Tester on 12-06-2022 Prostate specific Ag [Mass/Vol] 1.0 ng/mL Normal 0.0-4.0 [facility]; [facility] Work Phone: VITAMIN B12 AND FOLATES ([phone])Ordered By: Inductor Tester on 12-06-2022 Cobalamin (Vitamin B12) [Mass/Vol] 434 pg/mL Normal 232-1245 [facility]; [facility] Work Phone: Folate [Mass/Vol] ng/mL Normal [facility]; [facility] Work Phone: C-REACT PROT HIGH SENS(hsCRP ) ([id number])Ordered By: Inductor Tester on 08-27-2022 CRP High sensitivity method [Mass/Vol] 2.81 mg/L Normal 0.00-3.00 [facility]; [facility] Work Phone: CBC W/AUTO DIFF WBC ([id number])O rdered By: Inductor Tester on 08-27-2022 Basophils (Bld) [#/Vol] 0.0 10*3/uL Normal 0.0-0.2 [facility]; [facility] Work Phone: Basophils/100 WBC (Bld) 0 % Normal [facility]; [facility] Work Phone: Eosinophils (Bld) [#/Vol] 0.1 10*3/uL Normal 0.0-0.4 [facility]; [facility] Work Phone: Eosinophils/100 WBC (Bld) 2 % Normal [facility]; [facility] Work Phone: Erythrocyte distribution width (RBC) [Ratio] 11.7 % Normal 11.6-15.4 [facility]; [facility] Work Phone: Hematocrit (Bld) [Volume fraction] 41.3 % Normal 37.5-51.0 [facility]; [facility] Work Phone: Hemoglobin (Bld) [Mass/Vol] 14.1 g/dL Normal 13.0-17.7 [facility]; [facility] Work Phone: Immature granulocytes (Bld) [#/Vol] 0.0 10*3/uL Normal 0.0-0.1 [facility]; [facility] Work Phone: Immature granulocytes/100 WBC (Bld) 0 % Normal [facility]; [facility] Work Phone: Lymphocytes (Bld) [#/Vol] 1.2 10*3/uL Normal 0.7-3.1 [facility]; [facility] Work Phone: Lymphocytes/100 WBC (Bld) 20 % Normal [facility]; [facility] Work Phone: MCH (RBC) [Entitic mass] 31.5 pg Normal 26.6-33.0 [facility]; [facility] Work Phone: MCHC (RBC) [Mass/Vol] 34.1 g/dL Normal 31.5-35.7 [facility]; [facility] Work Phone: MCV (RBC) [Entitic vol] 92 fL Normal 79-97 [facility]; [facility] Work Phone: Monocytes (Bld) [#/Vol] 0.6 10*3/uL Normal 0.1-0.9 [facility]; [facility] Work Phone: Monocytes/100 WBC (Bld) 10 % Normal [facility]; [facility] Work Phone: Neutrophils (Bld) [#/Vol] 3.8 10*3/uL Normal 1.4-7.0 [facility]; [facility] Work Phone: Neutrophils/100 WBC (Bld) 68 % Normal [facility]; [facility] Work Phone: Platelets (Bld) [#/Vol] 211 10*3/uL Normal 150-450 [facility]; [facility] Work Phone: RBC (Bld) [#/Vol] 4.47 10*6/uL Normal 4.14-5.80 [facility]; [facility] Work Phone: WBC (Bld) [#/Vol] 5.7 10*3/uL Normal 3.4-10.8 [facility]; [facility] Work Phone: LIPID PANEL ([id number])Ordered B y: Inductor Tester on 08-27-2022 Cholesterol [Mass/Vol] 111 mg/dL Normal 100-199 [facility]; [facility] Work Phone: Cholesterol in HDL [Mass/Vol] 41 mg/dL Normal [facility]; [facility] Work Phone: Triglyceride [Mass/Vol] 46 mg/dL Normal 0-149 [facility]; [facility] Work Phone: LIPID PANEL ([id number]) 11 mg/dL Normal 5-40 [facility]; [facility] Work Phone: LIPID PANEL ([id number]) 59 mg/dL Normal 0-99 [facility]; [facility] Work Phone: LIPID PANEL ([id number]) 1.4 {ratio} Normal 0.0-3.6 [facility]; [facility] Work Phone: METABOLIC PANEL, COMPREHENSI VE ([id number])Ordered By: Inductor Tester on 08-27-2022 Albumin [Mass/Vol] 4.6 g/dL Normal 3.6-4.6 [facility] Medicine; [facility] Medicine Work Phone: Albumin/Globulin [Mass ratio] 2.2 {ratio} Normal 1.2-2.2 [facility]; [facility] Work Phone: ALP [Catalytic activity/Vol] 52 U/L Normal 44-121 [facility]; [facility] Work Phone: ALT [Catalytic activity/Vol] 20 U/L Normal 0-44 [facility]; [facility] Work Phone: AST [Catalytic activity/Vol] 25 U/L Normal 0-40 [facility]; [facility] Work Phone: Bilirubin [Mass/Vol] 0.8 mg/dL Normal 0.0-1.2 [facility]; [facility] Work Phone: Calcium [Mass/Vol] 9.7 mg/dL Normal 8.6-10.2 [facility]; [facility] Work Phone: Chloride [Moles/Vol] 100 mmol/L Normal 96-106 [facility] Internal Medicine; [facility] Work Phone: CO2 [Moles/Vol] 25 mmol/L Normal 20-29 [facility] Internal Medicine; [facility] Work Phone: Creatinine [Mass/Vol] 0.92 mg/dL Normal 0.76-1.27 [facility] Internal Medicine; [facility] Work Phone: Globulin (S) [Mass/Vol] 2.1 g/dL Normal 1.5-4.5 [facility]; [facility] Work Phone: Glucose [Mass/Vol] 93 mg/dL Normal 70-99 [facility] Internal Medicine; [facility] Work Phone: Potassium [Moles/Vol] 4.5 mmol/L Normal 3.5-5.2 [facility] Internal Medicine; [facility] Work Phone: Protein [Mass/Vol] 6.7 g/dL Normal 6.0-8.5 [facility]; [facility] Work Phone: Sodium [Moles/Vol] 140 mmol/L Normal 134-144 [facility]; [facility] Work Phone: Urea nitrogen [Mass/Vol] 17 mg/dL Normal 8-27 [facility]; [facility] Work Phone: Urea nitrogen/Creatinine [Mass ratio] 18 mg/mg Normal 10-24 [facility]; [facility] Work Phone: METABOLIC PANEL, COMPREHENSIVE ([id number]) 84 mL/min/1.73 Normal [facility]; [facility] Work Phone: VITAMIN B-12 (CYANOCOBALAMIN ) ([id number])Ordered By: Inductor Tester on 08-27-2022 Cobalamin (Vitamin B12) [Mass/Vol] 649 pg/mL Normal 232-1245 [facility]; [facility] Work Phone: URINALYSIS ([id number])Ordered By : Inductor Tester on 08-17-2022 Appearance (U) Clear Normal [facility]; [facility] Work Phone: Bilirubin Ql (U) Negative Normal Compre[facility] nsive [facility]; [facility] Work Phone: Color (U) Yellow Normal [facility]; [facility] Work Phone: Glucose Ql (U) Negative Normal [facility]; [facility] Work Phone: Hemoglobin Ql (U) Negative Normal Compre[facility] ens[facility]; [facility] Work Phone: Ketones Ql (U) Negative Normal [facility]; [facility] Work Phone: Leukocyte esterase Test strip Ql (U) Negative Normal [facility]; [facility] Work Phone: Microscopic observation LM Nom (Urine sed) MICNIP Normal [facility]; [facility] Work Phone: Nitrite Ql (U) Negative Normal [facility]; [facility] Work Phone: pH (U) 6.0 [pH] Normal 5.0-7.5 [facility]; [facility] Work Phone: Protein Ql (U) Negative Normal [facility]; [facility] Work Phone: Specific gravity (U) [Rel density] 1.013 1 Normal 1.005-1.03 0 [facility]; [facility] Work Phone: Urobilinogen (U) [Mass/Vol] 0.2 mg/dL Normal 0.2-1.0 [facility]; [facility] Work Phone: URINE JORJE CULTURE-IDENTIFICA [place] ([id number])Ordered By: Inductor Tester on 08-17-2022 Bacteria identified Cx Nom (U) Final report Normal [facility]; [facility] Work Phone: Bacteria identified Cx Nom (U) NG36 Normal [facility]; [facility] Work Phone: CNOVon 06-03-2022 CNOV Office Visit (PODIWS ) -------- LIA GALLEGOS ([id number]) 1940 M Date Time Provider Department 06/03/22 9:30 AM TARAN COWAN During your visit today, we recorded the following information about you: Maira Beltran LPN 06/03/2022 10:08 AM Signed AMB ROOMING INTAKE FLOWSHEET DATA Pain Pain Level: 2 Pain Location: Foot-Left Description: Burning Duration Units: Minutes Frequency: Intermittent Intervention/Comfort measure: Reposition Patient presents with: Left Foot - Established Patient, Follow Up, Callous, nail care Right Foot - Established Patient, Follow Up, Callous, nail care WAGNER Basilio DPM 06/03/2022 10:08 AM Signed Subjective: Patient presents to clinic c/o painful toenails. They state that the nails are especially painful with shoe gear and pressure. Patient states that nails 1-5 b/l are painful. No other pedal complaints at this time. Patient states no change in medications or medical history since last visit. Objective: Patient presents to clinic ambulating in eakers Vasc: DP and PT pulses are faintly palpable bilateral. CFT is less than 5 seconds bilateral. Skin temperature is warm to cool proximal to distal bilateral. There is no edema or varicosities noted. Neuro: Protective sensation is intact to the foot and toes when tested with the 5.07 SWM bilateral. Vibratory sensation is decreased at the hallux IPJ bilateral. The hallux is downgoing bilateral. Derm: Nails 1-5 b/l are painful, discolored-yellow, thick, crumbly, dystrophic and with subungal debris. Skin is of normal turgor, texture and hair growth is present bilateral. There are no hyperkeratosis, ulcerations, scars, verruca or other lesions noted. Ortho: Muscle strength is 5/5 for all pedal groups tested. Ankle joint DF is full with the knee extended with no pain or crepitus noted. 1st MPJ ROM is full bilateral. Assessment: (Q82.8) Porokeratosis (primary encounter diagnosis) (B35.1) Onychomycosis (M79.675) Pain in toe of left foot (M79.674) Pain in toe of right foot Plan: Patient was seen and evaluated. Past porokeratosis appears resolved. Small amount of dry skin debrided with 15 blade to assure porokeratosis was resolved. In order to perform a complete physical exam, limited shaving of callus area was performed. This incidental service is integral to the evaluation and management visit in order to appropriately manage and treat the patient (for their complaint or for this visit). Nails 1-5 bilateral were debrided in length and thickness. Patient is to RTC in 3-4 months. Taran Cowan DPM Referring Provider: SELF [200] Allergies As of Date: 06/03/2022 (No Known Allergies) Date Reviewed: 06/03/2022 Reviewed by: Maira Beltran LPN - Fully Assessed Reason for Visit: Established Patient [175] Follow Up [171] Callous [1028] nail care [Other] Established Patient [175] Follow Up [171] Callous [1028] nail care [Other] Primary Visit Diagnosis:Porokeratosis [Q82.8] Other Visit Diagnoses:Onychomycosis [B35.1] Pain in toe of left foot [M79.675] Pain in toe of right foot [M79.674] Prescriptions as of 06/03/2022 - omeprazole (PRILOSEC) 20 mg capsule Take 20 mg by mouth twice daily. Taking generic Nexium - ciprofloxacin HCl (CIPRO) 250 mg tablet Take 1 tablet by mouth twice daily. - meloxicam (MOBIC) 15 mg tablet Take 15 mg by mouth once daily. Take with food. - ranitidine (ZANTAC) 150 mg tablet Take 1 tablet by mouth twice daily. - aspirin, enteric coated (ASPIRIN, ENTERIC COATED) 81 mg EC tablet Take 1 tablet by mouth once daily. - diphenhydrAMINE (ALER-CAP) 25 mg capsule Take 1 capsule by mouth every 6 hours as needed. - Valsartan-Hydrochlorothi azide (DIOVAN HCT) 160-12.5 mg per tablet Take 0.5 tablets by mouth twice daily. 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 BENIGN HYPERTENSION [I10] HYPERLIPIDEMIA NEC/NOS [E78.5] ESOPHAGEAL REFLUX [K21.9] ACUTE GASTRITIS W/O HEMORRHAGE [K29.00] 01/13/2006 Encounter Status:Closed by TARAN COWAN DPM on 06/03/22 Normal [facility] URINALYSIS ([id number])Ordered By : Inductor Tester on 05-03-2022 Appearance (U) Clear Normal [facility]; [facility] Work Phone: Comment on above: PATIENT NOT FASTINGP ERFORMED BY: [facility] Hbmhsv1960 [facility] [id number] Information: SRC:UC Color (U) Yellow Normal [facility]; [facility] Work Phone: Comment on above: PATIENT NOT FASTINGP ERFORMED BY: [facility] Lpfzgw3505 [place] [facility]Te[facility]isSelect [facility] [id number] Information: SRC:UC Glucose Ql (U) Negative Normal [facility]; [facility] Work Phone: Comment on above: PATIENT NOT FASTINGP ERFORMED BY: [facility] Vbjeid3931 [facility] [id number] Information: SRC:UC Microscopic observation LM Nom (Urine sed) MICNIP Normal [facility]; [facility] Work Phone: Comment on above: Microscopic not flavia cated and not performed. PATIENT NOT FASTINGP ERFORMED BY: BRIGITTE [facility] Iqaxrp3934 [address] [employer] [facility] TechnologiesNov[facility] [id number] Information: SRC: pH (U) 6.0 [pH] Normal 5.0-7.5 [facility]; [facility] Work Phone: Comment on above: PATIENT NOT FASTINGP ERFORMED BY: [facility] Bnacgp6979 [place] [facility] [facility] TechnologiesNov[facility] [id number] Information: SRC: Specific gravity (U) [Rel density] 1.017 1 Normal 1.005-1.03 0 [facility]; [facility] Work Phone: Comment on above: PATIENT NOT FASTINGP ERFORMED BY: [facility] Dkusvr7109 [facility] [id number] Information: SRC: Urobilinogen (U) [Mass/Vol] 0.2 mg/dL Normal 0.2-1.0 [facility]; [facility] Work Phone: Comment on above: PATIENT NOT FASTINGP ERFORMED BY: [facility] Iatjup2855 [facility] [id number] Information: SRC: URINE JORJE CULTURE-IDENTIFICA [place] ([id number])Ordered By: Inductor Tester on 05-03-2022 Bacteria identified Cx Nom (U) Final report Normal [facility]; [facility] Work Phone: Comment on above: PATIENT NOT FASTINGP ERFORMED BY: [facility] Uvikgt9254 [facility] [id number] Bacteria identified Cx Nom (U) NG36 Normal [facility]; [facility] Work Phone: Comment on above: No growth in 36 - 48 hours. PATIENT NOT FASTINGP ERFORMED BY: [facility] Vpuqeu5337 [facility] [id number] Urinalysis, Office ([id number])Or dered By: Carmen Cummings on 05-03-2022 Bilirubin Ql (U) Negative Normal Comprehe nsive [facility]; [facility] Work Phone: Comment on above: PATIENT NOT FASTINGP ERFORMED BY: BRIGITTE Labcoelsa ChaneyJbdlbd2392 Kerr RoadDublin [place] [id number] Information: SRC:UC Glucose Test strip (U) [Mass/Vol] Negative Normal [facility]; [facility] Work Phone: Hemoglobin Ql (U) Negative Normal Compre[facility] ensive [facility]; [facility] Work Phone: Comment on above: PATIENT NOT FASTINGP ERFORMED BY: BRIGITTE [facility] Wivbas3942 Kerr RoadDublin [place] [id number] Information: SRC:UC Ketones Ql (U) Negative Normal [facility]; [facility] Work Phone: Comment on above: PATIENT NOT FASTINGP ERFORMED BY: BRIGITTE Lablivrp Ejrysc3326 Kerr RoadDublin [place] [id number] Information: SRC:UC Leukocyte esterase Test strip Ql (U) Negative Normal [facility]; [facility] Work Phone: Comment on above: PATIENT NOT FASTINGP ERFORMED BY: BRIGITTE Lablivrp Vacrlm6958 Kerr RoadDublin [place] [id number] Information: SRC:UC Nitrite Ql (U) Negative Normal [facility]; [facility] Work Phone: Comment on above: PATIENT NOT FASTINGP ERFORMED BY: BRIGITTE [facility] Kvgsmo8306 [address] RoadDublin [place] [id number] Information: SRC:UC pH (U) 6 [pH] Abnormal [facility]; [facility] Work Phone: Protein Ql (U) Negative Normal [facility]; [facility] Work Phone: Comment on above: PATIENT NOT FASTINGP ERFORMED BY: BRIGITTE Labsilvio ChaneyPjhpze8121 Kerr RoadDublin [place] [id number] Information: SRC:UC Specific gravity (U) [Rel density] 1.020 1 Normal [facility]; [facility] Work Phone: Urobilinogen (24H U) [Mass/Time] 2 mg/dL Normal [facility]; [facility] Work Phone: 2018 Novel Coronavirus (COVI D-19), DORY ([id number])Ordered By: Inductor Tester on 04-23-20222018 Novel Coronavirus (COVID-19), DORY ([id number]) Not detected Normal [facility]; [facility] Work Phone: Comment on above: This nucleic acid am plification test was developed and its performancecharacteristics determined by [employer]. Nucleic acidamplification tests include RT-PCR and TMA. This test has not beenFDA cleared or approved. This test has been authorized by FDA underan Emergency Use Authorization (EUA). This test is only authorizedfor the duration of time the declaration that circumstances existjustifying the authorization of the emergency use of in vitrodiagnostic tests for detection of SARS-CoV-2 virus and/or diagnosisof COVID-19 infection under section 564(b)(1) of the Act, 21 U.S.C.360bbb-3(b) (1), unless the authorization is terminated or revokedsooner.When diagnostic testing is negative, the possibility of a falsenegative result should be considered in the context of a patient'srecent exposures and the presence of clinical signs and symptomsconsistent with COVID-19. An individual without symptoms of COVID-19and who is not shedding SARS-CoV-2 virus would expect to have anegative (not detected) result in this assay. PERFORMED BY: [employer] Hnugpb4110 [facility] [id number] CNOVon 03-18-2022 CNOV Office Visit (PODIWS ) -------- LIA GALLEGOS ([id number]) 1940 M Date Time Provider Department 03/18/22 9:15 AM TARAN COWAN During your visit today, we recorded the following information about you: Jen Larkin RN 03/18/2022 12:36 PM Signed AMB ROOMING INTAKE FLOWSHEET DATA Risk Screening Do you have concerns about personal safety or safety in the home?: No Pain Pain Level: 6 (when standing) Pain Location: Foot-Left Description: Sharp Duration Units: Unknown Frequency: Intermittent Intervention/Comfort measure: Reposition, Distractions, Relaxation Patient presents with: Left Foot - Established Patient, Follow Up, Callous, nail care Right Foot - Established Patient, Follow Up, nail care Taran Cowan DPM 03/18/2022 12:36 PM Signed Subjective: Patient presents to clinic c/o painful toenails. They state that the nails are especially painful with shoe gear and pressure. Patient states that nails 1-5 b/l are painful. Patient complains of callus to left 3rd metatarsal head. No other pedal complaints at this time. Patient states no change in medications or medical history since last visit. Objective: Patient presents to clinic ambulating in [facility] Vasc: DP and PT pulses are palpable bilateral. CFT is less than 5 seconds bilateral. Skin temperature is warm to cool proximal to distal bilateral. There is no edema or varicosities noted. Neuro: Protective sensation is intact to the foot and toes when tested with the 5.07 SWM bilateral. Vibratory sensation is decreased at the hallux IPJ bilateral. The hallux is downgoing bilateral. Derm: Nails 1-5 b/l are painful, discolored-yellow, thick, crumbly, dystrophic and with subungal debris. Skin is of normal turgor, texture and hair growth is present bilateral. Porokeratosis is present to left 3rd metatarsal head. No ulcerations, scars, verruca or other lesions noted. Ortho: Muscle strength is 5/5 for all pedal groups tested. Ankle joint DF is full with the knee extended with no pain or crepitus noted. 1st MPJ ROM is full bilateral. Assessment: (Q82.8) Porokeratosis (primary encounter diagnosis) (B35.1) Onychomycosis (M79.675) Pain in toe of left foot (M79.674) Pain in toe of right foot Plan: Patient was seen and evaluated. Nails 1-5 bilateral were debrided in length and thickness. Porokeratosis reduced to left foot with 15 blade. Tca applied under occlusion. Patient is to RTC in 3-4 months. Taran Cowan DPM 1 Taran Cowan DPM 03/18/2022 9:54 AM Signed Trichloroacetic acid (TCA) has been applied to the plantar warts. Rinse off in 12 hours and keep clean and dry. May bathe and shower normally starting the day after treatment The area is expected to burn and blister in about 1-3 days, if painful soak in plain, cool water. If blistered, you may drain the blister with a clean, STERILIZED needle and apply OTC antibiotic ointment and band aid to area. Repeat 2-3 times daily as needed. Tylenol or Aleve as needed for pain, provided you have no allergies to either of these. Keep scheduled follow up appointment to have wart(s) re-evaluated and/or additional treatments. Referring Provider: TARAN COWAN [[id number]] Allergies As of Date: 03/18/2022 (No Known Allergies) Date Reviewed: 03/18/2022 Reviewed by: Jen Larkin RN - Fully Assessed Reason for Visit: Established Patient [175] Follow Up [171] Callous [1028] nail care [Other] Established Patient [175] Follow Up [171] nail care [Other] Primary Visit Diagnosis:Porokeratosis [Q82.8] Other Visit Diagnoses:Onychomycosis [B35.1] Pain in toe of left foot [M79.675] Pain in toe of right foot [M79.674] Prescriptions as of 03/18/2022 - omeprazole (PRILOSEC) 20 mg capsule Take 20 mg by mouth twice daily. Taking generic Nexium - ciprofloxacin HCl (CIPRO) 250 mg tablet Take 1 tablet by mouth twice daily. - meloxicam (MOBIC) 15 mg tablet Take 15 mg by mouth once daily. Take with food. - ranitidine (ZANTAC) 150 mg tablet Take 1 tablet by mouth twice daily. - aspirin, enteric coated (ASPIRIN, ENTERIC COATED) 81 mg EC tablet Take 1 tablet by mouth once daily. - diphenhydrAMINE (ALER-CAP) 25 mg capsule Take 1 capsule by mouth every 6 hours as needed. - Valsartan-Hydrochlorothi azide (DIOVAN HCT) 160-12.5 mg per tablet Take 0.5 tablets by mouth twice daily. 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 Rinse off in 12 hours and keep clean and dry. May bathe and shower normally starting the day after treatment The (more content not included)... Normal [facility] CBC W/AUTO DIFF WBC ([id number])O rdered By: Inductor Tester on 03-08-2022 Basophils (Bld) [#/Vol] 0.0 10*3/uL Normal 0.0-0.2 [facility]; [facility] Work Phone: Comment on above: PATIENT WAS FASTINGP ERFORMED BY: [facility]ketSelect [facility] [id number] Basophils/100 WBC (Bld) 0 % Normal [facility]; [facility] Work Phone: Comment on above: PATIENT WAS FASTINGP ERFORMED BY: Kairos AR70 [facility] [id number] Eosinophils (Bld) [#/Vol] 0.1 10*3/uL Normal 0.0-0.4 [facility]; [facility] Work Phone: Comment on above: PATIENT WAS FASTINGP ERFORMED BY: Kairos AR70 [facility] [id number] Eosinophils/100 WBC (Bld) 2 % Normal [facility]; [facility] Work Phone: Comment on above: PATIENT WAS FASTINGP ERFORMED BY: [facility]ketSelect [facility] [id number] Erythrocyte distribution width (RBC) [Ratio] 11.8 % Normal 11.6-15.4 [facility]; [facility] Work Phone: Comment on above: PATIENT WAS FASTINGP ERFORMED BY: BRIGITTE Michelle Costa6370 Cirilo PatelNovant Health [facility] [id number] Hematocrit (Bld) [Volume fraction] 43.0 % Normal 37.5-51.0 [facility]; [facility] Work Phone: Comment on above: PATIENT WAS FASTINGP ERFORMED BY: BRIGITTE Daysisilvio Vratqg5026 [facility] [id number] Hemoglobin (Bld) [Mass/Vol] 14.5 g/dL Normal 13.0-17.7 [facility]; [facility] Work Phone: Comment on above: PATIENT WAS FASTINGP ERFORMED BY: BRIGITTE Daysisilvio ChaneyXcgkaa9532 [facility] [id number] Immature granulocytes (Bld) [#/Vol] 0.0 10*3/uL Normal 0.0-0.1 [facility]; [facility] Work Phone: Comment on above: PATIENT WAS FASTINGP ERFORMED BY: BRIGITTE Daysisilvio ChaneyRsisgq7948 [facility] [id number] Immature granulocytes/100 WBC (Bld) 0 % Normal [facility]; [facility] Work Phone: Comment on above: PATIENT WAS FASTINGP ERFORMED BY: BRIGITTE Daysisilvio ChaneyNzjusm8543 [facility] [id number] Lymphocytes (Bld) [#/Vol] 1.5 10*3/uL Normal 0.7-3.1 [facility]; [facility] Work Phone: Comment on above: PATIENT WAS FASTINGP ERFORMED BY: BRIGITTE Raúlelsa Ezepoi4167 [facility] [id number] Lymphocytes/100 WBC (Bld) 18 % Normal [facility]; [facility] Work Phone: Comment on above: PATIENT WAS FASTINGP ERFORMED BY: BRIGITTE [facility] Kgozci7770 [facility] [id number] MCH (RBC) [Entitic mass] 31.3 pg Normal 26.6-33.0 [facility]; [facility] Work Phone: Comment on above: PATIENT WAS FASTINGP ERFORMED BY: BRIGITTE [facility] Mkikfd5662 [facility] [id number] MCHC (RBC) [Mass/Vol] 33.7 g/dL Normal 31.5-35.7 [facility] prehensive Internal Medicine; [facility] Work Phone: Comment on above: PATIENT WAS FASTINGP ERFORMED BY: BRIGITTE [facility] Wxywex0194 [facility] [id number] MCV (RBC) [Entitic vol] 93 fL Normal 79-97 [facility]; [facility] Work Phone: Comment on above: PATIENT WAS FASTINGP ERFORMED BY: BRIGITTE [facility] Tdfmgg3581 [facility] [id number] Monocytes (Bld) [#/Vol] 0.7 10*3/uL Normal 0.1-0.9 [facility]; [facility] Work Phone: Comment on above: PATIENT WAS FASTINGP ERFORMED BY: BRIGITTE Daysisilvio Jmijvt1255 [facility] [id number] Monocytes/100 WBC (Bld) 8 % Normal [facility]; [facility] Work Phone: Comment on above: PATIENT WAS FASTINGP ERFORMED BY: BRIGITTE [place] 3218970 [facility] [id number] Neutrophils (Bld) [#/Vol] 6.2 10*3/uL Normal 1.4-7.0 [facility]; [facility] Work Phone: Comment on above: PATIENT WAS FASTINGP ERFORMED BY: BRIGITTE [facility]6370 [facility] [id number] Neutrophils/100 WBC (Bld) 72 % Normal [facility]; [facility] Work Phone: Comment on above: PATIENT WAS FASTINGP ERFORMED BY: BRIGITTE [facility] Hlpnmt3961 [address] RoadDublin [place] [id number] Platelets (Bld) [#/Vol] 244 10*3/uL Normal 150-450 [facility]; [facility] Work Phone: Comment on above: PATIENT WAS FASTINGP ERFORMED BY: BRIGITTE [facility] Ggrjog5221 [address] RoadDublin [place] [id number] RBC (Bld) [#/Vol] 4.63 10*6/uL Normal 4.14-5.80 [facility]ensive [facility]; [facility] Work Phone: Comment on above: PATIENT WAS FASTINGP ERFORMED BY: BRIGITTE [facility] Dtlpio4783 [address] RoadDublin [place] [id number] WBC (Bld) [#/Vol] 8.5 10*3/uL Normal 3.4-10.8 [facility] Internal [facility]; [facility] Work Phone: Comment on above: PATIENT WAS FASTINGP ERFORMED BY: BRIGITTE [facility] Xsamnx3074 [address] RoadDublin [place] [id number] LIPID PANEL ([id number])Ordered B y: Inductor Tester on 03-08-2022 Cholesterol [Mass/Vol] 147 mg/dL Normal 100-199 [facility]; [facility] Work Phone: Comment on above: PATIENT WAS FASTINGP ERFORMED BY: BRIGITTE [facility] Cxtien0248 [address] RoadDublin [place] [id number] Cholesterol in HDL [Mass/Vol] 47 mg/dL Normal [facility]; [facility] Work Phone: Comment on above: PATIENT WAS FASTINGP ERFORMED BY: BRIGITTE [facility] Pchzfh5286 [address] RoadDublin [place] [id number] Triglyceride [Mass/Vol] 66 mg/dL Normal 0-149 [facility] Internal [facility]; [facility] Work Phone: Comment on above: PATIENT WAS FASTINGP ERFORMED BY: BRIGITTE [facility] Hyxcbw5999 [address] RoadDublin [place] [id number] LIPID PANEL (40247) 13 mg/dL Normal 5-40 [facility]; [facility] Work Phone: Comment on above: PATIENT WAS FASTINGP ERFORMED BY: BRIGITTE [facility] Bwsfyt4735 [address] RoadDublin [place] [id number] LIPID PANEL (06147) 87 mg/dL Normal 0-99 [facility]; [facility] Work Phone: Comment on above: PATIENT WAS FASTINGP ERFORMED BY: CB [facility] Bomfgc5849 Kerr RoadDublin [place] [id number] LIPID PANEL (99014) 1.9 {ratio} Normal 0.0-3.6 [facility] Internal Medicine; [facility] Work Phone: Comment on above: LDL/HDL Ratio Men Wo men 1/2 Avg.Risk 1.0 1.5 Avg.Risk 3.6 3.2 2X Avg.Risk 6.2 5.0 3X Avg.Risk 8.0 6.1 PATIENT WAS FASTINGP ERFORMED BY: BRIGITTE [facility] Aavimi0188 Kerr RoadIredell Memorial Hospitalin [place] [id number] METABOLIC PANEL, COMPREHENSI VE (85242)Ordered By: Inductor Tester on 03-08-2022 Albumin [Mass/Vol] 4.5 g/dL Normal 3.6-4.6 [facility]; [facility] Work Phone: Comment on above: PATIENT WAS FASTINGP ERFORMED BY: BRIGITTE [facility] Hhkwac5553 [address] RoadDublin [place] [id number] Albumin/Globulin [Mass ratio] 2.3 {ratio} Abnormal 1.2-2.2 [facility]; [facility] Work Phone: Comment on above: PATIENT WAS FASTINGP ERFORMED BY: CB [facility] Giterw9679 [address] RoadDublin [place] [id number] ALP [Catalytic activity/Vol] 66 U/L Normal 44-121 [facility] Internal [facility]; [facility] Work Phone: Comment on above: PATIENT WAS FASTINGP ERFORMED BY: CB [facility] Dyvpsg2436 [address] RoadDublin [place] [id number] ALT [Catalytic activity/Vol] 21 U/L Normal 0-44 [facility]; [facility] Work Phone: Comment on above: PATIENT WAS FASTINGP ERFORMED BY: BRIGITTE [facility] Dsycwg2119 [address] RoadDublin [place] [id number] AST [Catalytic activity/Vol] 18 U/L Normal 0-40 [facility]; [facility] Work Phone: Comment on above: PATIENT WAS FASTINGP ERFORMED BY: CB [facility] Zzwyui5877 [address] RoadDublin [place] [id number] Bilirubin [Mass/Vol] 0.7 mg/dL Normal 0.0-1.[address] [facility] rehensive Internal Medicine; [facility] Work Phone: Comment on above: PATIENT WAS FASTINGP ERFORMED BY: CB [facility] Yfkrxu9022 [address] RoadDublin [place] [id number] Calcium [Mass/Vol] 9.3 mg/dL Normal 8.6-10.2 [facility] Internal [facility]; [facility] Work Phone: Comment on above: PATIENT WAS FASTINGP ERFORMED BY: CB [facility] Gfilzb1647 [address] RoadDublin [place] [id number] Chloride [Moles/Vol] 100 mmol/L Normal 96-106 [facility]; [facility] Work Phone: Comment on above: PATIENT WAS FASTINGP ERFORMED BY: CB [facility] Othhyz2662 [address] RoadDublin [place] [id number] CO2 [Moles/Vol] 27 mmol/L Normal 20-29 [facility] Internal Medicine; [facility] Work Phone: Comment on above: PATIENT WAS FASTINGP ERFORMED BY: CB [facility] Ztlzwr7440 [address] RoadDublin [place] [id number] Creatinine [Mass/Vol] 0.72 mg/dL Abnormal 0.76-1.27 [facility]; [facility] Work Phone: Comment on above: PATIENT WAS FASTINGP ERFORMED BY: CB [facility] Sksmww8465 [address] RoadDublin [place] [id number] GFR/1.73 sq M.predicted among non-blacks MDRD (S/P/Bld) [Vol rate/Area] 92 mL/min/{1.73_m2} Normal Comprehensiv e Internal Medicine; [facility] Work Phone: Comment on above: PATIENT WAS FASTINGP ERFORMED BY: [facility] Tcadaz8982 [address] RoadDublin [place] [id number] Globulin (S) [Mass/Vol] 2.0 g/dL Normal 1.5-4.5 [facility]; [facility] Work Phone: Comment on above: PATIENT WAS FASTINGP ERFORMED BY: [facility] Ziepkl9934 [address] RoadDublin [place] [id number] Glucose [Mass/Vol] 93 mg/dL Normal 70-99 [facility]; [facility] Work Phone: Comment on above: PATIENT WAS FASTINGP ERFORMED BY: Labozarks [facility] Qcudjq0963 Kerr Roadblin [place] [id number] Potassium [Moles/Vol] 3.8 mmol/L Normal 3.5-5.2 [facility] prehensive Internal Medicine; [facility] Work Phone: Comment on above: PATIENT WAS FASTINGP ERFORMED BY: Labozarks [facility] Patddw5860 [address] [facility] HospitalDublin [place] [id number] Protein [Mass/Vol] 6.5 g/dL Normal 6.0-8.5 [facility]; [facility] Work Phone: Comment on above: PATIENT WAS FASTINGP ERFORMED BY: Labozarks [facility] Rimzut[address] [facility] Hospitalblin [place] [id number] Sodium [Moles/Vol] 142 mmol/L Normal 134-144 [facility]; [facility] Work Phone: Comment on above: PATIENT WAS FASTINGP ERFORMED BY: [facility] Edjtsk6368 [address] RoadDublin [place] [id number] Urea nitrogen [Mass/Vol] 16 mg/dL Normal 8-27 [facility]; [facility] Work Phone: Comment on above: PATIENT WAS FASTINGP ERFORMED BY: BRIGITTE [facility] Fniyiv[address] [facility] Hospitalbl[facility] [place] [id number] Urea nitrogen/Creatinine [Mass ratio] 22 mg/mg Normal 10-24 [facility]; [facility] Work Phone: Comment on above: PATIENT WAS FASTINGP ERFORMED BY: BRIGITTE [facility] Ecseiv[address] [facility]in [place] [id number] METABOLIC PANEL, COMPREHENSIVE ([id number]) 92 mL/min/1.73 Normal Comprehens milka Internal Medicine; [facility] Work Phone: THROAT CULTURE ([id number])Ordere d By: Inductor Tester on 03-03-2022 Bacteria identified Respiratory culture Nom (Unsp spec) Final report Normal [facility]; [facility] Work Phone: Comment on above: PATIENT NOT FASTINGP ERFORMED BY: BRIGITTE [facility] Ylsdwx2265 Kerr RoadIredell Memorial Hospitalin [place] [id number] Information: SRC:TH Bacteria identified Respiratory culture Nom (Unsp spec) RRF Normal [facility]; [facility] Work Phone: Comment on above: Routine respiratory belem PATIENT NOT FASTINGP ERFORMED BY: BRIGITTE Labsilvio ChaneyVsaweu4461 [facility] [id number] Information: SRC:TH MAGNESIUM ([id number])Ordered By: Inductor Tester on 01-25-2022 Magnesium [Mass/Vol] 2.2 mg/dL Normal 1.6-2.[address] [facility] rehensive Internal Medicine; [facility] Work Phone: Comment on above: PATIENT NOT FASTINGP ERFORMED BY: BRIGITTE [facility] Ebptpl4[address] [facility] Centerin [place] [id number] BY: Lab[address] [id number] POTASSIUM SERUM ([id number])Order ed By: Inductor Tester on 01-25-2022 Potassium [Moles/Vol] 4.0 mmol/L Normal 3.5-5.2 [facility] prehensive Internal Medicine; [facility] Work Phone: Comment on above: PATIENT NOT FASTINGP ERFORMED BY: BRIGITTE Emay Softcomelsa ChaneyZkhddh6091 [facility] [id number] BY: Emay Softcom[address] [id number] TESTOSTERONE FREE (27968)Ord ered By: Inductor Tester on 01-25-2022 Testosterone Free [Mass/Vol] 4.8 pg/mL Abnormal 6.6-18.1 [facility]; [facility] Work Phone: Comment on above: PATIENT NOT FASTINGP ERFORMED BY: LabLynk Hpnbzc1315 [facility] [id number] BY: [employer] [id number] TESTOSTERONE TOTAL (03317)Or dered By: Inductor Tester on 01-25-2022 Testosterone [Mass/Vol] 453 ng/dL Normal 264-916 [facility]; [facility] Work Phone: Comment on above: Adult male reference interval is based on a population ofhealthy nonobese males (BMI <30) between 19 and 39 years old.laith Christopher.al. JCEM 2017,102;8830-3129. PMID: [id number]. PATIENT NOT FASTINGP ERFORMED BY: [employer] Uprhux6981 [facility] [id number] BY: [employer]ay [employer] [id number] TSH ([id number])Ordered By: Sami m Credit Collector on 01-25-2022 TSH Qn 1.440 {uIU/mL} Normal 0.450-4.50 0 [facility]; [facility] Work Phone: Comment on above: PATIENT NOT FASTINGP ERFORMED BY: [employer] Msgkmj3459 [facility] [id number] BY: [employer] [id number] Vitamin D Hydroxy ([id number])Ord ered By: Inductor Tester on 01-25-2022 25-hydroxyvitamin D [Mass/Vol] 53.5 ng/mL Normal 30.0-100.0 [facility]; [facility] Work Phone: Comment on above: Vitamin D deficiency has been defined by the [place] ofMedicine and an Endocrine Society practice guideline as alevel of serum 25-OH vitamin D less than 20 ng/mL (1,2).The Endocrine Society went on to further define vitamin Dinsufficiency as a level between 21 and 29 ng/mL (2).1. IOM ([place] of Medicine). 2010. Dietary reference intakes for calcium and D. [place]: The National Academies Press.2. Gray MF, Woody PAUL, Leslie SILVA, et al. Evaluation, treatment, and prevention of vitamin D deficiency: an Endocrine Society clinical practice guideline. JCEM. 2010; 96(7):1911-30. PATIENT NOT FASTINGP ERFORMED BY: [employer] [place] [id number] BY: Emay Softcom[address] [id number] URINE JORJE CULTURE-IDENTIFICA TN (54738)Ordered By: Inductor Tester on 01-19-2022 Bacteria identified Cx Nom (U) Final report Abnormal [facility]; [facility] Work Phone: Comment on above: PATIENT NOT FASTINGP ERFORMED BY: [facility]Select [facility] [id number] Information: SRC:UC Bacteria identified Cx Nom (U) Enterococcus faecalis Abnormal Comprehens milka [facility]; [facility] Work Phone: Comment on above: For Enterococcus spe cies, aminoglycosides (except for high-levelresistance screening), cephalosporins, clindamycin, andtrimethoprim-sulfamethoxazole are not effective clinically.(CLSI, [id number], 2016)10,000-25,000 colony forming units per mLNote: this isolate is vancomycin-susceptible.This information is provided for epidemiologic purposes only:vancomycin is not among the antibiotics recommended for therapyof urinary tract infections caused by Enterococcus. PATIENT NOT FASTINGP ERFORMED BY: [employer]6370 [facility]icaSelect [facility] [id number] Information: SRC:UC Other Antibiotic [Susc] MIHEAD Normal [facility]; [facility] Work Phone: Comment on above: S = Susceptible; I = Intermediate; R = Resistant P = Positive; N = Negative MICS are expressed in micrograms per mL Antibiotic RSLT#1 RSLT#2 RSLT#3 RSLT#4Ciprofloxacin SLevofloxacin SNitrofurantoin SPenicillin STetracycline RVancomycin S PATIENT NOT FASTINGP ERFORMED BY: BRIGITTE [facility] Xuqdmh9909 Kerr RoadDublMeadowview Regional Medical Center [id number] Information: SRC: Absolute lymphocyte counton 01-18-2022 Lymphocytes Auto (Unsp spec) [#/Vol] 0.90 10*3/uL 0.83-4.51 [facility] Work Phone: Albumin Elph [Mass/Vol]on Albumin [Mass/Vol] 4.2 g/dL 2.9-4.4 [facility] Work Phone: Basophil percentageon 2021 Basophil percentage 0-5 SEEN /hpf 0-5 [facility] Work Phone: Basophils/100 WBC (Bld) 0.3 % 0-1 [facility] Work Phone: Bilirubin [Mass/Vol] 0.60 mg/dL 0.20-1.00 [facility] Work Phone: Comment on above: For patients on eltr ombopag therapy, use of Dimension [place] TBIL is not recommended. Chloride [Moles/Vol] 101 mmol/L 98-107 [facility] Work Phone: Eosinophils/100 WBC (Bld) 0.4 % 0-5 [facility] Work Phone: Glucose [Mass/Vol] 102 mg/dL 74-106 [facility] Work Phone: Comment on above: Fasting Glucose resu lt from 100 to 125 mg/dL suggests IMPAIRED HOMEOSTASIS per A.D.A. criteria. Neutrophils (Bld) [#/Vol] 7.9 10*3/uL 2.0-7.7 [facility] Work Phone: Neutrophils/100 WBC (Bld) 83.0 % 47-70 [facility] Work Phone: Potassium [Moles/Vol] 3.4 mmol/L 3.5-5.1 [facility] Work Phone: Protein [Mass/Vol] 7.5 g/dL 6.4-8.2 [facility] Work Phone: Sodium [Moles/Vol] 140 mmol/L 136-145 [facility] Work Phone: WBC (Bld) [#/Vol] 9.5 10*3/uL 4.4-11.0 [facility] Work Phone: Bilirubin Test strip Ql (U)o n 01-18-2022 Bilirubin Ql (U) Negative Negative [facility] Work Phone: Blood erythrocytes count (nu mber/volume)on 01-18-2022 RBC (Bld) [#/Vol] 4.69 10*6/uL 4.6-6.2 [facility] Work Phone: Blood hemoglobin measurement (mass/volume)on 01-18-2022 Hemoglobin (Bld) [Mass/Vol] 15.4 g/dL 13.0-16.5 [facility] Work Phone: Blood lymphocytes/100 leukoc yteson 01-18-2022 Lymphocytes/100 WBC (Bld) 9.5 % 19-41 [facility] Work Phone: Blood monocytes/100 leukocyt eson 01-18-2022 Monocytes/100 WBC (Bld) 6.1 % 0-10 [facility] Work Phone: Blood platelet mean volumeon 01-18-2022 Platelet mean volume (Bld) [Entitic vol] 9.4 fL 6.2-12.0 [facility] Work Phone: Determination of erythrocyte mean corpuscular volume (MCV)on 01-18-2022 MCV (RBC) [Entitic vol] 91.9 fL 80-94 [facility] Work Phone: Hematocrit Auto (Bld) [Volum e fraction]on 01-18-2022 Hematocrit (Bld) [Volume fraction] 43.1 % 40-54 [facility] Work Phone: INR in Blood by Coagulation assayon 01-18-2022 INR Coag (Bld) [Relative time] 1.1 {INR} [facility] Work Phone: Interpretation of serum or p lasma protein pattern by immunofixation (narrative resulton 01-18-2022 Protein Fractions Immunofixation Kamaljit [Interp] See comment [facility] Work Phone: Comment on above: Result: Not Observed Ketones Test strip Ql (U)on 01-18-2022 Ketones Ql (U) 5 mg/dl Negative [facility] Work Phone: Laboratory - Chemistry and C hemistry - challengeon 01-18-2022 ALP [Catalytic activity/Vol] 70 U/L 45-117 [facility] Work Phone: ALT [Catalytic activity/Vol] 20 U/L 16-61 [facility] Work Phone: CO2 [Moles/Vol] 31.0 mmol/L 21.0-32.0 [facility] Work Phone: Globulin (S) [Mass/Vol] 3.5 g/dL 2.2-4.2 [facility] Work Phone: Urea nitrogen/Creatinine [Mass ratio] 23.8 mg/mg 10-20 [facility] Work Phone: Laboratory - Coagulationon 1 aPTT Coag (Bld) [Time] 35.5 s 24.1-36.2 [facility] Work Phone: PT Coag (PPP) [Time] 13.5 s 11.7-14.[address] [facility] [address] [facility] Work Phone: Laboratory - Hematology and Cell countson 01-18-2022 Erythrocyte distribution width (RBC) [Entitic vol] 43.0 fL 35.1-43.9 [facility] Work Phone: Erythrocyte distribution width (RBC) [Ratio] 12.6 % 11.6-14.6 [facility] Work Phone: Immature granulocytes/100 WBC (Bld) 0.700 % 0.0-0.9 [facility] Work Phone: Comment on above: IG% - Immature Granu locytes (promyelocytes, myelocytes and metamyelocytes) > 1% indicates that a LEFT SHIFT is Present. MCH (RBC) [Entitic mass] 32.8 pg 27.0-32.0 [facility] Work Phone: Nucleated RBC/100 WBC (Bld) [Ratio] 0 % 0-5 [facility] Work Phone: MCHC Auto (RBC) [Mass/Vol]on 01-18-2022 MCHC (RBC) [Mass/Vol] 35.7 g/dL 32-[address] [facility] Work Phone: Mucus LM Ql (Urine sed)on Mucus Ql (Urine sed) 0 SEEN /hpf [facility] Work Phone: Nitrite Test strip Ql (U)on 01-18-2022 Nitrite Ql (U) Negative Negative [facility] Work Phone: No Panel Informationon 01-18 Addendum Document Comment . [facility] Work Phone: Comment on above: Protein electrophore sis scan will follow via computer,mail, or lead quality technician delivery.Performed at: [address] [id number] Director: Pablo Parikh PhD, Phone: [phone] D-Dimer Quantitative (PE/DVT) 0.36 FEU/ug/m 0.27-0.49 [facility] Work Phone: Comment on above: NORMAL D-Dimer level (<0.50) indicates no DVT or PE. Estimated GFR (MDRD) Amer 146 mL/min >60 [facility] Work Phone: Comment on above: GFR Calc Estimated GFR (MDRD) Non-Af Amer 120 mL/min >60 [facility] Work Phone: Comment on above: Non- GFR Calc Platelets bldon 01-18-2022 Platelets (Bld) [#/Vol] 235 10*3/uL 150-450 [facility] Work Phone: Protein Test strip Ql (U)on 01-18-2022 Protein Ql (U) 15 mg/dl Negative [facility] Work Phone: Serum lklsj-7-jqlwetji measu rement by electrophoresison 01-18-2022 Alpha 1 globulin Elph [Mass/Vol] 0.3 g/dL 0.0-0.4 [facility] Work Phone: Alpha 1 globulin Elph [Mass/Vol] 0.8 g/dL 0.4-1.0 [facility] Work Phone: Serum globulin measurement ( mass/volume)on 01-18-2022 Globulin (S) [Mass/Vol] 2.8 g/dL 2.2-3.9 [facility] Work Phone: Serum or plasma IgA measurem ent (mass/volume)on 01-18-2022 IgA [Mass/Vol] 68 mg/dL 61-437 [facility] Work Phone: Serum or plasma IgG measurem ent (mass/volume)on 01-18-2022 IgG [Mass/Vol] 867 mg/dL 603-1613 [facility] Work Phone: Serum or plasma IgM measurem ent (mass/volume)on 01-18-2022 IgM [Mass/Vol] 75 mg/dL 15-143 [facility] Work Phone: Serum or plasma albumin haleigh urement (mass/volume)on 01-18-2022 Albumin [Mass/Vol] 4.0 g/dL 3.2-5.0 [facility] Work Phone: Serum or plasma albumin/glob ulin mass ratioon 01-18-2022 Albumin/Globulin [Mass ratio] 1.1 {ratio} 0.9-2.4 [facility] Work Phone: Serum or plasma beta globuli n measurement by electrophoresis (mass/volume)on 01-18-2022 Beta globulin Elph [Mass/Vol] 0.9 g/dL 0.7-1.3 [facility] Work Phone: Serum or plasma calcium haleigh urement (mass/volume)on 01-18-2022 Calcium [Mass/Vol] 9.3 mg/dL 8.5-10.1 [facility] Work Phone: Serum or plasma creatinine m easurement (mass/volume)on 01-18-2022 Creatinine [Mass/Vol] 0.67 mg/dL 0.70-1.[address] [facility] Work Phone: Comment on above: The validity of the calculated GFR & GFRAA in patients over 70 years has not been determined. Clinical correlation is essential. Serum or plasma gamma globul in measurement by electrophoresis (mass/volume)on 01-18-2022 Gamma globulin Elph [Mass/Vol] 0.9 g/dL 0.4-1.8 [facility] Work Phone: Serum or plasma immunoelectr ophoresis interpretation (nominal result)on 01-18-2022 Interpretation IEP [Interp] Comment . [facility] Work Phone: Comment on above: No monoclonality det ected. Serum or plasma urea nitroge n measurement (mass/volume)on 01-18-2022 Urea nitrogen [Mass/Vol] 16 mg/dL 7-18 [facility] Work Phone: Squamous epithelial cells de tection in urine sediment by light microscopyon 01-18-2022 Epithelial cells.squamous LM Ql (Urine sed) 0-5 SEEN /hpf 0-5 [facility] Work Phone: Thin prep Papanicolaou smear with manual screeningon 01-18-2022 Thin prep Papanicolaou smear with manual screening 13 U/L 15-37 [facility] Work Phone: Thin prep Papanicolaou smear with manual screening 8 5-15 [facility] Work Phone: Thin prep Papanicolaou smear with manual screening 1.6 0.7-1.7 [facility] Work Phone: Total protein bloodon 2021 Protein [Mass/Vol] 7.0 g/dL 6.0-8.5 [facility] Work Phone: Urine blood detectionon 10-0 RBC Ql (U) 10 /ul Negative [facility] Work Phone: RBC Ql (U) 0 SEEN /hpf 0-5 [facility] Work Phone: Urine clarityon 01-18-2022 Clarity (U) Clear Clear [facility] Work Phone: Urine color determinationon 01-18-2022 Color (U) Yellow Yellow [facility] Work Phone: Urine glucose detectionon Glucose Ql (U) Normal mg/dl Normal [facility] Work Phone: Urine leukocyte esterase det ection by dipstickon 01-18-2022 Leukocyte esterase Test strip Ql (U) 25 /ul Negative [facility] Work Phone: Urine pHon 01-18-2022 pH (U) 6.0 [pH] 5.0 - 8.0 [facility] Work Phone: Urine sediment bacteria coun t by microscopy (number/high power field)on 01-18-2022 Bacteria LM.HPF (Urine sed) [#/Area] 0 /[HPF] None Seen [facility] Work Phone: Urine specific gravity measu rementon 01-18-2022 Specific gravity (U) [Rel density] 1.020 1.002-1.03 0 [facility] Work Phone: Urobilinogen Auto test strip Ql (U)on 01-18-2022 Urobilinogen Ql (U) Normal mg/dl Normal [facility] Work Phone: Absolute lymphocyte counton 01-05-2022 Lymphocytes Auto (Unsp spec) [#/Vol] 1.51 10*3/uL 0.83-4.51 [facility] Work Phone: Basophil percentageon 2021 Basophils/100 WBC (Bld) 0.1 % 0-1 [facility] Work Phone: Chloride [Moles/Vol] 108 mmol/L 98-107 [facility] Work Phone: Cholesterol [Mass/Vol] 128 mg/dL <200 [facility] Work Phone: Comment on above: <200 mg/dL Desirable 200-240 mg/dL Borderline >240 mg/dL High Risk Eosinophils/100 WBC (Bld) 0.7 % 0-5 [facility] Work Phone: Glucose [Mass/Vol] 102 mg/dL 74-106 [facility] Work Phone: Comment on above: Fasting Glucose resu lt from 100 to 125 mg/dL suggests IMPAIRED HOMEOSTASIS per A.D.A. criteria. Neutrophils (Bld) [#/Vol] 5.1 10*3/uL 2.0-7.7 [facility] Work Phone: Neutrophils/100 WBC (Bld) 69.6 % 47-70 [facility] Work Phone: Potassium [Moles/Vol] 3.4 mmol/L 3.5-5.[address] [facility] Work Phone: Sodium [Moles/Vol] 141 mmol/L 136-145 [facility] Work Phone: Triglyceride [Mass/Vol] 72 mg/dL <199 [facility] Work Phone: Comment on above: The drugs N-Acetylcy steine and Metamizole may falsely depress this assay.Serum Triglycerides Reference Interval Normal <150 mg/dL Borderline high 150 - 199 mg/dL High 200 - 499 mg/dL Very High > or = 500 mg/dL WBC (Bld) [#/Vol] 7.3 10*3/uL 4.4-11.0 [facility] Work Phone: Blood erythrocytes count (nu mber/volume)on 01-05-2022 RBC (Bld) [#/Vol] 4.08 10*6/uL 4.6-6.2 [facility] Work Phone: Blood hemoglobin measurement (mass/volume)on 01-05-2022 Hemoglobin (Bld) [Mass/Vol] 12.8 g/dL 13.0-16.5 [facility] Work Phone: Blood lymphocytes/100 leukoc yteson 01-05-2022 Lymphocytes/100 WBC (Bld) 20.7 % 19-41 [facility] Work Phone: Blood monocytes/100 leukocyt eson 01-05-2022 Monocytes/100 WBC (Bld) 8.5 % 0-10 [facility] Work Phone: Blood platelet mean volumeon 01-05-2022 Platelet mean volume (Bld) [Entitic vol] 9.3 fL 6.2-12.0 [facility] Work Phone: Determination of erythrocyte mean corpuscular volume (MCV)on 01-05-2022 MCV (RBC) [Entitic vol] 91.9 fL 80-94 [facility] Work Phone: Hematocrit Auto (Bld) [Volum e fraction]on 01-05-2022 Hematocrit (Bld) [Volume fraction] 37.5 % 40-54 [facility] Work Phone: Laboratory - Chemistry and C hemistry - challengeon 01-05-2022 CO2 [Moles/Vol] 27.0 mmol/L 21.0-32.0 [facility] Work Phone: Magnesium [Mass/Vol] 2.3 mg/dL 1.6-2.6 [facility] Work Phone: Urea nitrogen/Creatinine [Mass ratio] 23.4 mg/mg 10-20 [facility] Work Phone: Laboratory - Hematology and Cell countson 01-05-2022 Erythrocyte distribution width (RBC) [Entitic vol] 42.5 fL 35.1-43.9 [facility] Work Phone: Erythrocyte distribution width (RBC) [Ratio] 12.7 % 11.6-14.6 [facility] Work Phone: Immature granulocytes/100 WBC (Bld) 0.400 % 0.0-0.9 [facility] Work Phone: Comment on above: IG% - Immature Granu locytes (promyelocytes, myelocytes and metamyelocytes) > 1% indicates that a LEFT SHIFT is Present. MCH (RBC) [Entitic mass] 31.4 pg 27.0-32.0 [facility] Work Phone: Nucleated RBC/100 WBC (Bld) [Ratio] 0 % 0-5 [facility] Work Phone: MCHC Auto (RBC) [Mass/Vol]on 01-05-2022 MCHC (RBC) [Mass/Vol] 34.1 g/dL 32-[address] [facility] Work Phone: No Panel Informationon 01-05 Estimated Creatinine Clearance Calc 64.00 ml/min [facility] Work Phone: Estimated GFR (MDRD) Amer 167 mL/min >60 [facility] Work Phone: Comment on above: GFR Calc Estimated GFR (MDRD) Non-Af Amer 138 mL/min >60 [facility] Work Phone: Comment on above: Non- GFR Calc Platelets bldon 01-05-2022 Platelets (Bld) [#/Vol] 211 10*3/uL 150-450 [facility] Work Phone: Serum or plasma calcium haleigh urement (mass/volume)on 01-05-2022 Calcium [Mass/Vol] 8.8 mg/dL 8.5-10.1 [facility] Work Phone: Serum or plasma cholesterol in HDL measurement (mass/volume)on 01-05-2022 Cholesterol in HDL [Mass/Vol] 43 mg/dL >40 [facility] Work Phone: Comment on above: The drugs N-Acetylcy steine and Metamizole may falsely depress this assay. Reference Range HDL <40 mg/dL Low HDL Cholesterol HDL >or= 60 mg/dL High HDL Cholesterol Serum or plasma cholesterol in VLDL measurement (mass/volume)on 01-05-2022 Cholesterol in VLDL [Mass/Vol] 14 mg/dL 5-40 [facility] Work Phone: Serum or plasma creatinine m easurement (mass/volume)on 01-05-2022 Creatinine [Mass/Vol] 0.60 mg/dL 0.70-1.[address] [facility] Work Phone: Comment on above: The validity of the calculated GFR & GFRAA in patients over 70 years has not been determined. Clinical correlation is essential. Serum or plasma low density lipoprotein (LDL) cholesterol measurement (mass/volume)on 01-05-2022 Cholesterol in LDL [Mass/Vol] 71 mg/dL 0-130 [facility] Work Phone: Serum or plasma urea nitroge n measurement (mass/volume)on 01-05-2022 Urea nitrogen [Mass/Vol] 14 mg/dL 7-18 [facility] Work Phone: Thin prep Papanicolaou smear with manual screeningon 01-05-2022 Thin prep Papanicolaou smear with manual screening 6 5-15 [facility] Work Phone: Absolute lymphocyte counton 01-04-2022 Lymphocytes Auto (Unsp spec) [#/Vol] 1.03 10*3/uL 0.83-4.51 [facility] Work Phone: Basophil percentageon 2021 Basophils/100 WBC (Bld) 0.1 % 0-1 [facility] Work Phone: Chloride [Moles/Vol] 102 mmol/L 98-107 [facility] Work Phone: Eosinophils/100 WBC (Bld) 0.2 % 0-5 [facility] Work Phone: Glucose [Mass/Vol] 109 mg/dL 74-106 [facility] Work Phone: Comment on above: Fasting Glucose resu lt from 100 to 125 mg/dL suggests IMPAIRED HOMEOSTASIS per A.D.A. criteria. Neutrophils (Bld) [#/Vol] 8.5 10*3/uL 2.0-7.7 [facility] Work Phone: Neutrophils/100 WBC (Bld) 83.1 % 47-70 [facility] Work Phone: Potassium [Moles/Vol] 3.4 mmol/L 3.5-5.[address] [facility] Work Phone: Sodium [Moles/Vol] 137 mmol/L 136-145 [facility] Work Phone: WBC (Bld) [#/Vol] 10.3 10*3/uL 4.4-11.0 [facility] Work Phone: Blood erythrocytes count (nu mber/volume)on 01-04-2022 RBC (Bld) [#/Vol] 4.32 10*6/uL 4.6-6.2 [facility] Work Phone: Blood hemoglobin measurement (mass/volume)on 01-04-2022 Hemoglobin (Bld) [Mass/Vol] 13.6 g/dL 13.0-16.5 [facility] Work Phone: Blood lymphocytes/100 leukoc yteson 01-04-2022 Lymphocytes/100 WBC (Bld) 10.0 % 19-41 [facility] Work Phone: Blood monocytes/100 leukocyt eson 01-04-2022 Monocytes/100 WBC (Bld) 6.0 % 0-10 [facility] Work Phone: Blood platelet mean volumeon 01-04-2022 Platelet mean volume (Bld) [Entitic vol] 9.4 fL 6.2-12.0 [facility] Work Phone: Determination of erythrocyte mean corpuscular volume (MCV)on 01-04-2022 MCV (RBC) [Entitic vol] 91.0 fL 80-94 [facility] Work Phone: Hematocrit Auto (Bld) [Volum e fraction]on 01-04-2022 Hematocrit (Bld) [Volume fraction] 39.3 % 40-54 [facility] Work Phone: INR in Blood by Coagulation assayon 01-04-2022 INR Coag (Bld) [Relative time] 1.1 {INR} [facility] Work Phone: Laboratory - Chemistry and C hemistry - challengeon 01-04-2022 CO2 [Moles/Vol] 26.0 mmol/L 21.0-32.0 [facility] Work Phone: Urea nitrogen/Creatinine [Mass ratio] 29.6 mg/mg 10-20 [facility] Work Phone: Laboratory - Coagulationon 0 01-04-2022 aPTT Coag (Bld) [Time] 39.0 s 24.1-36.2 [facility] Work Phone: PT Coag (PPP) [Time] 13.4 s 11.7-14.9 [facility] Work Phone: Laboratory - Hematology and Cell countson 01-04-2022 Erythrocyte distribution width (RBC) [Entitic vol] 41.5 fL 35.1-43.9 [facility] Work Phone: Erythrocyte distribution width (RBC) [Ratio] 12.6 % 11.6-14.6 [facility] Work Phone: Immature granulocytes/100 WBC (Bld) 0.600 % 0.0-0.9 [facility] Work Phone: Comment on above: IG% - Immature Granu locytes (promyelocytes, myelocytes and metamyelocytes) > 1% indicates that a LEFT SHIFT is Present. MCH (RBC) [Entitic mass] 31.5 pg 27.0-32.0 [facility] Work Phone: Nucleated RBC/100 WBC (Bld) [Ratio] 0 % 0-5 [facility] Work Phone: MCHC Auto (RBC) [Mass/Vol]on 01-04-2022 MCHC (RBC) [Mass/Vol] 34.6 g/dL 32-[address] [facility] Work Phone: No Panel Informationon 01-04 Estimated Creatinine Clearance Calc 64.67 ml/min [facility] Work Phone: Estimated GFR (MDRD) Amer 154 mL/min >60 [facility] Work Phone: Comment on above: GFR Calc Estimated GFR (MDRD) Non-Af Amer 127 mL/min >60 [facility] Work Phone: Comment on above: Non- GFR Calc Troponin I High Sensitivity 8 pg/mL 3.0-78.0 [facility] Work Phone: Comment on above: Please Note: [place] Units and Gender Specific Reference Ranges. For more information see Policy Stat Procedure [place] High Sensitivity Troponin (TNIH) and attachments. Platelets bldon 01-04-2022 Platelets (Bld) [#/Vol] 227 10*3/uL 150-450 [facility] Work Phone: Serum or plasma calcium haleigh urement (mass/volume)on 01-04-2022 Calcium [Mass/Vol] 9.3 mg/dL 8.5-10.1 [facility] Work Phone: Serum or plasma creatinine m easurement (mass/volume)on 01-04-2022 Creatinine [Mass/Vol] 0.64 mg/dL 0.70-1.[address] [facility] Work Phone: Comment on above: The validity of the calculated GFR & GFRAA in patients over 70 years has not been determined. Clinical correlation is essential. Serum or plasma urea nitroge n measurement (mass/volume)on 01-04-2022 Urea nitrogen [Mass/Vol] 19 mg/dL 7-18 [facility] Work Phone: Thin prep Papanicolaou smear with manual screeningon 01-04-2022 Thin prep Papanicolaou smear with manual screening 9 5-15 [facility] Work Phone: CNOVon 12-28-2021 CNOV Office Visit (PODIWS ) -------- LIA GALLEGOS ([id number]) 1940 M Date Time Provider Department 12/28/21 9:30 AM TARAN COWAN PODIWS During your visit today, we recorded the following information about you: Diya Rashid RN 12/28/2021 10:37 AM Signed AMB ROOMING INTAKE FLOWSHEET DATA Risk Screening Do you have concerns about personal safety or safety in the home?: No Pain Pain Level: 10 Pain Location: Foot-Left Description: Sharp Duration Amount of Time: 1 Duration Units: Months Frequency: Intermittent Intervention/Comfort measure: Reposition, Relaxation Patient presents with: Left Foot - New Patient, LESION, SKIN Patient c/o wart vs callus to L plantar foot. Ongoing for awhile but most recently bothersome in the past month. Has gone to a strategic planning director in the past for debridement. Taran Cowan DPM 12/28/2021 10:37 AM Signed Initial Podiatric Office Visit: Chief Complaint: This 81 year old male who presents with chief complaint:painful wart of left foot HPI Patient presents to clinic for evaluation of plantar left foot He has painful wart vs callus of left foot that he sees another strategic planning director for. Patient states that they shave the callus down and he follows up every 2 months. Prior to seeing his recent strategic planning director, he was given a pad by [facility] provider which did help. He is here to discuss options. PAIN EVALUATION 12/28/2021 0928 Pain Level: 10 Pain Location: Foot-Left Description: Sharp Duration Amount of Time: 1 Duration Units: Months Frequency: Intermittent Intervention/Comfort measure: Reposition;Relaxation No results found for: HBA1C PCP: No primary care provider on file. PAST MEDICAL HISTORY Diagnosis Date Acute gastritis without mention of hemorrhage Diverticulosis of colon (without mention of hemorrhage) Esophageal reflux Essential hypertension, benign Internal hemorrhoids without mention of complication Other and unspecified hyperlipidemia PMH - PAST MEDICAL HISTORY OF right shoulder pain and left arm ache Current Outpatient Medications Medication Sig omeprazole (PRILOSEC) 20 mg capsule Take 20 mg by mouth twice daily. Valsartan-Hydrochlorothi azide (DIOVAN HCT) 160-12.5 mg per tablet Take 0.5 tablets by mouth twice daily. THERAPEUTIC MULTIVITAMIN TAB .QD ciprofloxacin HCl (CIPRO) 250 mg tablet Take 1 tablet by mouth twice daily. meloxicam (MOBIC) 15 mg tablet Take 1 tablet by mouth once daily. Take with food. (Patient not taking: Reported on 12/28/2021) ranitidine (ZANTAC) 150 mg tablet Take 1 tablet by mouth twice daily. aspirin, enteric coated (ASPIRIN, ENTERIC COATED) 81 mg EC tablet Take 1 tablet by mouth once daily. diphenhydrAMINE (ALER-CAP) 25 mg capsule Take 1 capsule by mouth every 6 hours as needed. (Patient not taking: Reported on 12/28/2021) No current facility-administered medications for this visit. ALLERGIES No Known Allergies PAST SURGICAL HISTORY Procedure Laterality Date COLONOSCOPY - DIAGNOSTIC 1999 COLONOSCOPY FLX DX W/COLLJ SPEC WHEN PFRMD 10/03/06 EGD TRANSORAL BIOPSY SINGLE/MULTIPLE 01/13/06 FAMILY HISTORY Problem Relation Age of Onset Prostate Cancer Father age 69 Social History Tobacco Use Smoking status: Never Smokeless tobacco: Never Substance Use Topics Alcohol use: No REVIEW OF SYSTEMS GENERAL: Negative for Malaise, significant weight loss, fever RESPIRATORY: Negative for cough, wheezing and shortness of breath CARDIOVASCULAR: Negative for chest pain, leg swelling and palpitations GI: Negative for abdominal discomfort, blood in stools or black stools and change in bowel habits : Negative for dysuria, frequency and incontinence MUSCULOSKELETAL: Negative for joint pain or swelling, back pain, and muscle pain. SKIN: Negative for lesions, rash, and itching. HEMATOLOGY/LYMPHOLOGY Negative for prolonged bleeding, bruising easily, and swollen nodes. ENDOCRINE: Negative for cold or heat intolerance, polyuria, polydipsia and goiter. NEURO: negative Physical Exam: Constitutional: Pt is a well developed 81 year old male who is alert, oriented and cooperative Eyes: Following during examination. No redness or drainage. Respiratory: RR normal and nonlabored. Even breathing. No evidence of distress or shortness of breath. Psychology: Patient is engaged during conversation. Normal affect and mood. Does not appear depressed or anxious during encounter. 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 Normal [facility] C-REACT PROT HIGH SENS(hsCRP ) (98152)Ordered By: Inductor Tester on 11-23-2021 CRP High sensitivity method [Mass/Vol] 1.87 mg/L Normal 0.00-3.00 [facility] Work Phone: Comment on above: Relative Risk for Fu ture Cardiovascular Event Low <1.00 Average 1.00 - 3.00 High >3.00 PATIENT WAS FASTINGP ERFORMED BY: [facility] [id number] CBC W/AUTO DIFF WBC ([id number])O rdered By: Inductor Tester on 11-23-2021 Basophils (Bld) [#/Vol] 0.0 10*3/uL Normal 0.0-0.2 [facility]; [facility] Work Phone: Comment on above: PATIENT WAS FASTINGP ERFORMED BY: Kairos AR70 [facility] [id number] Basophils/100 WBC (Bld) 0 % Normal [facility]; [facility] Work Phone: Comment on above: PATIENT WAS FASTINGP ERFORMED BY: Kairos AR70 [facility] [id number] Eosinophils (Bld) [#/Vol] 0.1 10*3/uL Normal 0.0-0.4 [facility]; [facility] Work Phone: Comment on above: PATIENT WAS FASTINGP ERFORMED BY: [facility] [id number] Eosinophils/100 WBC (Bld) 1 % Normal [facility]; [facility] Work Phone: Comment on above: PATIENT WAS FASTINGP ERFORMED BY: BRIGITTE Costa6370 [facility] [id number] Erythrocyte distribution width (RBC) [Ratio] 11.3 % Abnormal 11.6-15.4 [facility]; [facility] Work Phone: Comment on above: PATIENT WAS FASTINGP ERFORMED BY: Daysico [id number] [facility] [id number] Hematocrit (Bld) [Volume fraction] 44.0 % Normal 37.5-51.0 [facility]; [facility] Work Phone: Comment on above: PATIENT WAS FASTINGP ERFORMED BY: BRIGITTE [facility] [id number] [facility] [id number] Hemoglobin (Bld) [Mass/Vol] 14.7 g/dL Normal 13.0-17.7 [facility]; [facility] Work Phone: Comment on above: PATIENT WAS FASTINGP ERFORMED BY: BRIGITTE Michelle Costa6370 [facility] [id number] Immature granulocytes (Bld) [#/Vol] 0.2 10*3/uL Abnormal 0.0-0.1 [facility]; [facility] Work Phone: Comment on above: (An elevated percent age of Immature Granulocytes has not been foundto be clinically significant as a sole clinical predictor of disease.Does NOT include bands or blast cells. associatedphysiological leukocytosis may also show increased immaturegranulocytes without clinical significance.) PATIENT WAS FASTINGP ERFORMED BY: BRIGITTE [facility] [id number] [facility] [id number] Immature granulocytes/100 WBC (Bld) 2 % Normal [facility]; [facility] Work Phone: Comment on above: PATIENT WAS FASTINGP ERFORMED BY: [facility] [id number] [facility] [id number] Lymphocytes (Bld) [#/Vol] 1.9 10*3/uL Normal 0.7-3.1 [facility]; [facility] Work Phone: Comment on above: PATIENT WAS FASTINGP ERFORMED BY: BRIGITTE Labcoelsa [id number] RoadDublin [place] [id number] Lymphocytes/100 WBC (Bld) 22 % Normal [facility]; [facility] Work Phone: Comment on above: PATIENT WAS FASTINGP ERFORMED BY: BRIGITTE [facility] [id number] [address] [place] [id number] MCH (RBC) [Entitic mass] 31.3 pg Normal 26.6-33.0 [facility]; [facility] Work Phone: Comment on above: PATIENT WAS FASTINGP ERFORMED BY: BRIGITTE Labcoelsa ChaneyIdwuae[address] [facility] [place] [id number] MCHC (RBC) [Mass/Vol] 33.4 g/dL Normal 31.5-35.7 [facility]; [facility] Work Phone: Comment on above: PATIENT WAS FASTINGP ERFORMED BY: BRIGITTE Labcoelsa [id number] [facility] [place] [id number] MCV (RBC) [Entitic vol] 94 fL Normal 79-97 [facility]; [facility] Work Phone: Comment on above: PATIENT WAS FASTINGP ERFORMED BY: BRIGITTE [facility] [id number] [facility] [place] [id number] Monocytes (Bld) [#/Vol] 0.8 10*3/uL Normal 0.1-0.9 [facility]; [facility] Work Phone: Comment on above: PATIENT WAS FASTINGP ERFORMED BY: BRIGITTE [facility] [id number] [facility] [place] [id number] Monocytes/100 WBC (Bld) 9 % Normal [facility]; [facility] Work Phone: Comment on above: PATIENT WAS FASTINGP ERFORMED BY: BRIGITTE [facility] [id number] [facility] [place] [id number] Neutrophils (Bld) [#/Vol] 5.8 10*3/uL Normal 1.4-7.0 [facility]; [facility] Work Phone: Comment on above: PATIENT WAS FASTINGP ERFORMED BY: BRIGITTE Michelle Costa6[address] Road[address]ublin [place] [id number] Neutrophils/100 WBC (Bld) 66 % Normal [facility]; [facility] Work Phone: Comment on above: PATIENT WAS FASTINGP ERFORMED BY: BRIGITTE [facility] [id number] [address] RoadDublin [place] [id number] Platelets (Bld) [#/Vol] 270 10*3/uL Normal 150-450 [facility]; [facility] Work Phone: Comment on above: PATIENT WAS FASTINGP ERFORMED BY: BRIGITTE Labcoelsa [id number] [address] RoadDublin [place] [id number] RBC (Bld) [#/Vol] 4.69 10*6/uL Normal 4.14-5.80 [facility]; [facility] Work Phone: Comment on above: PATIENT WAS FASTINGP ERFORMED BY: BRIGITTE Labcoelsa Nbwooo2000 Kerr RoadDublin [place] [id number] WBC (Bld) [#/Vol] 8.8 10*3/uL Normal 3.4-10.8 [facility] Internal Medicine; [facility] Work Phone: Comment on above: PATIENT WAS FASTINGP ERFORMED BY: BRIGITTE [facility] Bxusyu6942 Kerr RoadDublin [place] [id number] LIPID PANEL (31620)Ordered B y: Inductor Tester on 11-23-2021 Cholesterol [Mass/Vol] 144 mg/dL Normal 100-199 [facility]; [facility] Work Phone: Comment on above: PATIENT WAS FASTINGP ERFORMED BY: BRIGITTE Labcoelsa ChaneyEjivpi3096 [address] RoadDublin [place] [id number] Cholesterol in HDL [Mass/Vol] 49 mg/dL Normal [facility]; [facility] Work Phone: Comment on above: PATIENT WAS FASTINGP ERFORMED BY: BRIGITTE [facility] Rxiufz6810 [address] RoadDublin [place] [id number] Triglyceride [Mass/Vol] 45 mg/dL Normal 0-149 [facility]; [facility] Work Phone: Comment on above: PATIENT WAS FASTINGP ERFORMED BY: BRIGITTE [facility] Mkgzmv3692 [address] Roadblin [place] [id number] LIPID PANEL (90116) 10 mg/dL Normal 5-40 [facility]ensive Internal Medicine; [facility] Work Phone: Comment on above: PATIENT WAS FASTINGP ERFORMED BY: BRIGITTE [facility] Ftjann5069 [address] RoadDublin [place] [id number] LIPID PANEL (65004) 85 mg/dL Normal 0-99 [facility]ensive Internal Medicine; [facility] Work Phone: Comment on above: PATIENT WAS FASTINGP ERFORMED BY: BRIGITTE [facility] Zquagb8828 [facility] [id number] LIPID PANEL (46924) 1.7 {ratio} Normal 0.0-3.6 [facility]; [facility] Work Phone: Comment on above: LDL/HDL Ratio Men Wo men 1/2 Avg.Risk 1.0 1.5 Avg.Risk 3.6 3.2 2X Avg.Risk 6.2 5.0 3X Avg.Risk 8.0 6.1 PATIENT WAS FASTINGP ERFORMED BY: BRIGITTE [facility] Zeieoz0952 [facility] [id number] METABOLIC PANEL, COMPREHENSI VE (89692)Ordered By: Inductor Tester on 11-23-2021 Albumin [Mass/Vol] 4.3 g/dL Normal 3.6-4.6 [facility] Internal Medicine; [facility] Work Phone: Comment on above: PATIENT WAS FASTINGP ERFORMED BY: BRIGITTE [facility] Ldvqjr0564 Kerr RoadDublin [place] [id number] Albumin/Globulin [Mass ratio] 2.4 {ratio} Abnormal 1.2-2.2 [facility]; [facility] Work Phone: Comment on above: PATIENT WAS FASTINGP ERFORMED BY: [facility] Uzcqrs5593 [address] RoadDublin [place] [id number] ALP [Catalytic activity/Vol] 50 U/L Normal 44-121 [facility]; [facility] Work Phone: Comment on above: PATIENT WAS FASTINGP ERFORMED BY: CB [facility] Duxusu3197 [address] RoadDublin [place] [id number] ALT [Catalytic activity/Vol] 27 U/L Normal 0-44 [facility]; [facility] Work Phone: Comment on above: PATIENT WAS FASTINGP ERFORMED BY: CB [facility] Qdllbl4744 Kerr RoadDublin [place] [id number] AST [Catalytic activity/Vol] 16 U/L Normal 0-40 [facility]; [facility] Work Phone: Comment on above: PATIENT WAS FASTINGP ERFORMED BY: [facility] Wldndv5521 [address] RoadDublin [place] [id number] Bilirubin [Mass/Vol] 0.8 mg/dL Normal 0.0-1.2 Comp rehensive Internal Medicine; [facility] Work Phone: Comment on above: PATIENT WAS FASTINGP ERFORMED BY: [facility] Rwnxnm5350 [address] RoadDublin [place] [id number] Calcium [Mass/Vol] 9.1 mg/dL Normal 8.6-10.2 [facility]; [facility] Work Phone: Comment on above: PATIENT WAS FASTINGP ERFORMED BY: [facility] Zperqj2189 [address] RoadDublin [place] [id number] Chloride [Moles/Vol] 101 mmol/L Normal 96-106 Comp rehensive Internal Medicine; [facility] Work Phone: Comment on above: PATIENT WAS FASTINGP ERFORMED BY: [facility] Uhlsex0585 [address] RoadDublin [place] [id number] CO2 [Moles/Vol] 27 mmol/L Normal 20-29 [facility] Internal Medicine; [facility] Work Phone: Comment on above: PATIENT WAS FASTINGP ERFORMED BY: BRIGITTE [facility] Amfvlr0671 [address] RoadDublin [place] [id number] Creatinine [Mass/Vol] 0.79 mg/dL Normal 0.76-1.27 [facility] prehensive Internal Medicine; [facility] Work Phone: Comment on above: PATIENT WAS FASTINGP ERFORMED BY: BRIGITTE [facility] Gpczhm4176 [address] Roadblin [place] [id number] GFR/1.73 sq M.predicted among non-blacks MDRD (S/P/Bld) [Vol rate/Area] 89 mL/min/{1.73_m2} Normal Comprehensiv e Internal Medicine; [facility] Work Phone: Comment on above: PATIENT WAS FASTINGP ERFORMED BY: BRIGITTE [facility] Fsnldg6747 [address] RoadDublin [place] [id number] Globulin (S) [Mass/Vol] 1.8 g/dL Normal 1.5-4.5 [facility] Internal Medicine; [facility] Work Phone: Comment on above: PATIENT WAS FASTINGP ERFORMED BY: BRIGITTE [facility] Holgog2629 [address] RoadDublin [place] [id number] Glucose [Mass/Vol] 90 mg/dL Normal 65-99 [facility] Internal Medicine; [facility] Work Phone: Comment on above: PATIENT WAS FASTINGP ERFORMED BY: [facility] Ethwqj0409 Kerr RoadDublin [place] [id number] Potassium [Moles/Vol] 4.5 mmol/L Normal 3.5-5.2 [facility] prehensive Internal Medicine; [facility] Work Phone: Comment on above: PATIENT WAS FASTINGP ERFORMED BY: CB [facility] Kptmpk4237 [address] RoadDublin [place] [id number] Protein [Mass/Vol] 6.1 g/dL Normal 6.0-8.5 [facility] Internal Medicine; [facility] Work Phone: Comment on above: PATIENT WAS FASTINGP ERFORMED BY: CB [facility] Mhvilf2309 [address] RoadDublin [place] [id number] Sodium [Moles/Vol] 140 mmol/L Normal 134-144 Compre hensive Internal Medicine; [facility] Work Phone: Comment on above: PATIENT WAS FASTINGP ERFORMED BY: [facility] Ybdidn[address] [employer] Edge TechnologiesNovant Health Cle[facility] [id number] Urea nitrogen [Mass/Vol] 15 mg/dL Normal 8-27 [facility]; [facility] Work Phone: Comment on above: PATIENT WAS FASTINGP ERFORMED BY: [facility] Cmfmkr4363 [address] [facility] [id number] Urea nitrogen/Creatinine [Mass ratio] 19 mg/mg Normal 10-24 [facility]; [facility] Work Phone: Comment on above: PATIENT WAS FASTINGP ERFORMED BY: [facility] Lriowv2959 [facility] [id number] METABOLIC PANEL, COMPREHENSIVE (29715) 89 mL/min/1.73 Normal Comprehens milka Internal Medicine; [facility] Work Phone: PSA (PROSTATE SPECIFIC ANTIG EN) (66555)Ordered By: Inductor Tester on 11-23-2021 Prostate specific Ag [Mass/Vol] 0.7 ng/mL Normal 0.0-4.0 [facility]; [facility] Work Phone: Comment on above: Jose Eduardo ECLIA methodol ogy. .According to the [place] [employer], Serum PSA shoulddecrease and remain at undetectable levels after radicalprostatectomy. The AUA defines biochemical recurrence as an initialPSA value 0.2 ng/mL or greater followed by a subsequent confirmatoryPSA value 0.2 ng/mL or greater.Values obtained with different assay methods or kits cannot be usedinterchangeably. Results cannot be interpreted as absolute evidenceof the presence or absence of malignant disease. please draw with his other labs; PATIENT WAS FASTINGPERFORMED BY: [facility] Ljqqgg3173 [facility] [id number] TSH ([id number])Ordered By: [employer] Credit Collector on 11-23-2021 TSH Qn 2.260 {uIU/mL} Normal 0.450-4.50 0 [facility]; [facility] Work Phone: Comment on above: PATIENT WAS FASTINGP ERFORMED BY: BRIGITTE Emay Softcomelsa ChaneyYkrkbg2825 [employer] Propertiesin [place] [id number] VITAMIN B12 AND FOLATES (826 07)Ordered By: Inductor Tester on 11-23-2021 Cobalamin (Vitamin B12) [Mass/Vol] 462 pg/mL Normal 232-1245 [facility]; [facility] Work Phone: Comment on above: PATIENT WAS FASTINGP ERFORMED BY: BRIGITTE Emay Softcomelsa ChaneyQdhvin1213 Amedicablin [place] [id number] Folate [Mass/Vol] 15.7 ng/mL Normal Compreh ensive Internal Medicine; [facility] Work Phone: Comment on above: A serum folate rita ntration of less than 3.1 ng/mL isconsidered to represent clinical deficiency. PATIENT WAS FASTINGP ERFORMED BY: BRIGITTE GiftRocketin [place] [id number] Basophil percentageon 2021 Creatinine [Mass/Vol] 0.9 mg/dL 0.70-1.[address] [facility] Work Phone: No Panel Informationon 07-02 Bedside Estimated GFR (eGFR) > 60.0000 mL/min >60 [facility] Work Phone: MARY (ANTINUCLEAR ANTIBODY) ( 15401)Ordered By: Inductor Tester on 06-10-2021 Nuclear Ab Ql (S) Positive Abnormal Compreh ensive Internal Medicine; [facility] Work Phone: Comment on above: PATIENT NOT FASTINGP ERFORMED BY: BRIGITTE [email or web address] Zzoycb5093 Amedicain [place] [id number] C-REACTIVE PROTEIN (54403)Or dered By: Inductor Tester on 06-10-2021 CRP [Mass/Vol] 1 mg/L Normal 0-10 Comprehens milka Internal Medicine; [facility] Work Phone: Comment on above: PATIENT NOT FASTINGP ERFORMED BY: BRIGITTE [email or web address] Freldr3665ProcessUnityin [place] [id number] LDH (LD) (LACTATE DEHYDROGEN ASE) (88713)Ordered By: Inductor Tester on 06-10-2021 LDH [Catalytic activity/Vol] 197 U/L Normal 121-224 [facility]; [facility] Work Phone: Comment on above: PATIENT NOT FASTINGP ERFORMED BY: BRIGITTE DaysilivHe[place] [id number] [facility] [id number] SED RATE ERYTHROCYTE (29464) Ordered By: Inductor Tester on 06-10-2021 ESR (Bld) [Velocity] 2 mm/h Normal 0-30 [facility]; [facility] Work Phone: Comment on above: PATIENT NOT FASTINGP ERFORMED BY: BRIGITTE Chaneylin6370 [facility] [id number] CBC W/AUTO DIFF WBC (12531)O rdered By: Inductor Tester on 05-27-2021 Basophils (Bld) [#/Vol] 0.0 10*3/uL Normal 0.0-0.2 [facility]; [facility] Work Phone: Comment on above: PATIENT NOT FASTINGP ERFORMED BY: BRIGITTE Chaneylin6370 [facility] [id number] Information: NURSE DRAW Basophils/100 WBC (Bld) 0 % Normal [facility]; [facility] Work Phone: Comment on above: PATIENT NOT FASTINGP ERFORMED BY: BRIGITTE DaysilivKessler Institute for RehabilitationReijne9805 [facility] [id number] Information: NURSE DRAW Eosinophils (Bld) [#/Vol] 0.2 10*3/uL Normal 0.0-0.4 [facility]; [facility] Work Phone: Comment on above: PATIENT NOT FASTINGP ERFORMED BY: BRIGITTE Daysisilvio ChaneyIefnof1520 [facility] [id number] Information: NURSE DRAW Eosinophils/100 WBC (Bld) 2 % Normal [facility]; [facility] Work Phone: Comment on above: PATIENT NOT FASTINGP ERFORMED BY: BRIGITTE Chaneylin6370 [facility] [id number] Information: NURSE DRAW Erythrocyte distribution width (RBC) [Ratio] 12.5 % Normal 11.6-15.4 [facility]; [facility] Work Phone: Comment on above: PATIENT NOT FASTINGP ERFORMED BY: [address] [id number] Information: NURSE DRAW Hematocrit (Bld) [Volume fraction] 42.1 % Normal 37.5-51.0 [facility]; [facility] Work Phone: Comment on above: PATIENT NOT FASTINGP ERFORMED BY: Daysi[address] [id number] Information: NURSE DRAW Hemoglobin (Bld) [Mass/Vol] 14.6 g/dL Normal 13.0-17.7 [facility]; [facility] Work Phone: Comment on above: PATIENT NOT FASTINGP ERFORMED BY: DaysiBeth [place] [id number] [facility] [id number] Information: NURSE DRAW Immature granulocytes (Bld) [#/Vol] 0.1 10*3/uL Normal 0.0-0.1 [facility]; [facility] Work Phone: Comment on above: PATIENT NOT FASTINGP ERFORMED BY: [place] [id number] [facility] [id number] Information: NURSE DRAW Immature granulocytes/100 WBC (Bld) 1 % Normal [facility]; [facility] Work Phone: Comment on above: PATIENT NOT FASTINGP ERFORMED BY: [place] [id number] [facility] [id number] Information: NURSE DRAW Lymphocytes (Bld) [#/Vol] 1.5 10*3/uL Normal 0.7-3.1 [facility]; [facility] Work Phone: Comment on above: PATIENT NOT FASTINGP ERFORMED BY: [address] [id number] Information: NURSE DRAW Lymphocytes/100 WBC (Bld) 20 % Normal [facility]; [facility] Work Phone: Comment on above: PATIENT NOT FASTINGP ERFORMED BY: BRIGITTE Mendoza [facility] [id number] Information: NURSE DRAW MCH (RBC) [Entitic mass] 31.7 pg Normal 26.6-33.0 [facility]; [facility] Work Phone: Comment on above: PATIENT NOT FASTINGP ERFORMED BY: BRIGITTE Olsen[address] [id number] Information: NURSE DRAW MCHC (RBC) [Mass/Vol] 34.7 g/dL Normal 31.5-35.7 [facility] prehensive Internal Medicine; [facility] Work Phone: Comment on above: PATIENT NOT FASTINGP ERFORMED BY: BRIGITTE Michelle [address] [id number] Information: NURSE DRAW MCV (RBC) [Entitic vol] 92 fL Normal 79-97 [facility]; [facility] Work Phone: Comment on above: PATIENT NOT FASTINGP ERFORMED BY: BRIGITTE Chaney[address] [id number] Information: NURSE DRAW Monocytes (Bld) [#/Vol] 0.6 10*3/uL Normal 0.1-0.9 [facility]; [facility] Work Phone: Comment on above: PATIENT NOT FASTINGP ERFORMED BY: BRIGITTE Olsen[address] [id number] Information: NURSE DRAW Monocytes/100 WBC (Bld) 8 % Normal [facility]; [facility] Work Phone: Comment on above: PATIENT NOT FASTINGP ERFORMED BY: BRIGITTE Chaney[address] [id number] Information: NURSE DRAW Neutrophils (Bld) [#/Vol] 5.3 10*3/uL Normal 1.4-7.0 [facility]; [facility] Work Phone: Comment on above: PATIENT NOT FASTINGP ERFORMED BY: BRIGITTE [facility]Research [facility] Center [id number] Information: NURSE DRAW Neutrophils/100 WBC (Bld) 69 % Normal [facility]; [facility] Work Phone: Comment on above: PATIENT NOT FASTINGP ERFORMED BY: BRIGITTE Mendoza [facility] [id number] Information: NURSE DRAW Platelets (Bld) [#/Vol] 226 10*3/uL Normal 150-450 [facility]; [facility] Work Phone: Comment on above: PATIENT NOT FASTINGP ERFORMED BY: BRIGITTE Costa6370 [facility] [id number] Information: NURSE DRAW RBC (Bld) [#/Vol] 4.60 10*6/uL Normal 4.14-5.80 [facility] Internal Medicine; [facility] Work Phone: Comment on above: PATIENT NOT FASTINGP ERFORMED BY: BRIGITTE Chaneylin6370 [facility] [id number] Information: NURSE DRAW WBC (Bld) [#/Vol] 7.7 10*3/uL Normal 3.4-10.8 [facility] Internal Medicine; [facility] Work Phone: Comment on above: PATIENT NOT FASTINGP ERFORMED BY: BRIGITTE Chaneylin6370 [facility] [id number] Information: NURSE DRAW METABOLIC PANEL, COMPREHENSI RICHA (16490)Ordered By: Inductor Tester on 05-27-2021 Albumin [Mass/Vol] 4.5 g/dL Normal 3.7-4.7 [facility] Internal Medicine; [facility] Work Phone: Comment on above: PATIENT NOT FASTINGP ERFORMED BY: BRIGITTE [facility] Eriiga0899 [facility] [id number]; appt 06/10 Albumin/Globulin [Mass ratio] 2.3 {ratio} Abnormal 1.2-2.2 [facility]; [facility] Work Phone: Comment on above: PATIENT NOT FASTINGP ERFORMED BY: BRIGITTE Costa6370 [address] RoadDublin [place] [id number]; appt 2/23 ALP [Catalytic activity/Vol] 57 U/L Normal 44-121 [facility]; [facility] Work Phone: Comment on above: PATIENT NOT FASTINGP ERFORMED BY: BRIGITTE Costa6370 [address] RoadDublin [place] [id number]; appt 2/23 ALT [Catalytic activity/Vol] 19 U/L Normal 0-44 [facility]; [facility] Work Phone: Comment on above: PATIENT NOT FASTINGP ERFORMED BY: BRIGITTE Costa6370 [address] RoadDublin [place] [id number]; appt 2/23 AST [Catalytic activity/Vol] 17 U/L Normal 0-40 [facility]; [facility] Work Phone: Comment on above: PATIENT NOT FASTINGP ERFORMED BY: BRIGITTE Costa6370 [address] RoadDublin [place] [id number]; appt 2/23 Bilirubin [Mass/Vol] 0.9 mg/dL Normal 0.0-1.2 Comp rehensive Internal Medicine; [facility] Work Phone: Comment on above: PATIENT NOT FASTINGP ERFORMED BY: BRIGITTE Costa6370 [address]bl[address] [place] [id number]; appt 2/23 Calcium [Mass/Vol] 9.2 mg/dL Normal 8.6-10.2 [facility] Internal Medicine; [facility] Work Phone: Comment on above: PATIENT NOT FASTINGP ERFORMED BY: BRIGITTE Chaneylin6370 [address] RoadDublin [place] [id number]; appt 2/23 Chloride [Moles/Vol] 101 mmol/L Normal 96-106 Comp rehensive Internal Medicine; [facility] Work Phone: Comment on above: PATIENT NOT FASTINGP ERFORMED BY: BRIGITTE Costa6370 [facility]eroSelect [facility] [id number]; appt 06/10 CO2 [Moles/Vol] 26 mmol/L Normal 20-29 [facility] Internal Medicine; [facility] Work Phone: Comment on above: PATIENT NOT FASTINGP ERFORMED BY: BRIGITTE Costa6370 Cirilo ValeroSelect [facility] [id number]; appt 06/10 Creatinine [Mass/Vol] 0.80 mg/dL Normal 0.76-1.27 [facility] Internal Medicine; [facility] Work Phone: Comment on above: PATIENT NOT FASTINGP ERFORMED BY: BRIGITTE Costa6370 Cirilo ValeroSelect [facility] [id number]; appt 06/10 GFR/1.73 sq M.predicted among blacks CKD-EPI (S/P/Bld) [Vol rate/Area] 98 mL/min/1.73 Normal [facility]; [facility] Work Phone: Comment on above: In accordance with recommendations from the NKF-ASN Task force, Michelle is in the process of updating its eGFR calculation to the 2020 CKD-EPI creatinine equation that estimates kidney function without a race variable. PATIENT NOT FASTINGP ERFORMED BY: BRIGITTE Costa6370 Cirilo PatelNovant Health [facility] [id number]; appt 06/10 GFR/1.73 sq M.predicted among non-blacks CKD-EPI (S/P/Bld) [Vol rate/Area] 84 mL/min/1.73 Normal [facility]; [facility] Work Phone: Comment on above: PATIENT NOT FASTINGP ERFORMED BY: BRIGITTE Costa[address] AmandaNovant Health Clemm[facility] [id number]; appt 06/10 Globulin (S) [Mass/Vol] 2.0 g/dL Normal 1.5-4.5 [facility]; [facility] Work Phone: Comment on above: PATIENT NOT FASTINGP ERFORMED BY: BRIGITTE Costa6370 [facility] [id number]; appt 06/10 Glucose [Mass/Vol] 94 mg/dL Normal 65-99 [facility] Internal Medicine; [facility] Work Phone: Comment on above: PATIENT NOT FASTINGP ERFORMED BY: BRIGITTE [facility] Wjwevj5592 [address] Roadbl[address] [place] [id number]; appt 06/10 Potassium [Moles/Vol] 3.9 mmol/L Normal 3.5-5.2 [facility]; [facility] Work Phone: Comment on above: PATIENT NOT FASTINGP ERFORMED BY: CB [facility] Buycgt6055 Kerr RoadIredell Memorial Hospitalin [place] [id number]; appt 06/10 Protein [Mass/Vol] 6.5 g/dL Normal 6.0-8.5 [facility] Internal Medicine; [facility] Work Phone: Comment on above: PATIENT NOT FASTINGP ERFORMED BY: CB [facility] Geatex[address] [facility] [place] [id number]; appt 06/10 Sodium [Moles/Vol] 141 mmol/L Normal 134-144 [facility] Internal Medicine; [facility] Work Phone: Comment on above: PATIENT NOT FASTINGP ERFORMED BY: CB [facility] Qsjdho7[address] [facility] [place] [id number]; appt 06/10 Urea nitrogen [Mass/Vol] 18 mg/dL Normal 8-27 [facility]; [facility] Work Phone: Comment on above: PATIENT NOT FASTINGP ERFORMED BY: CB [facility] Cailmq[address] [facility] Centerin [place] [id number]; appt 06/10 Urea nitrogen/Creatinine [Mass ratio] 23 mg/mg Normal 10-24 [facility]; [facility] Work Phone: Comment on above: PATIENT NOT FASTINGP ERFORMED BY: CB [facility] Lzfats[address] [facility] [place] [id number]; appt 06/10 2018 Novel Coronavirus (COVI D-19), DORY (23328)Ordered By: Inductor Tester on 04-08-20212018 Novel Coronavirus (COVID-19), DORY (83655) Not detected Normal [facility]; [facility] Work Phone: Comment on above: This nucleic acid am plification test was developed and its performancecharacteristics determined by [employer]. Nucleic acidamplification tests include RT-PCR and TMA. This test has not beenFDA cleared or approved. This test has been authorized by FDA underan Emergency Use Authorization (EUA). This test is only authorizedfor the duration of time the declaration that circumstances existjustifying the authorization of the emergency use of in vitrodiagnostic tests for detection of SARS-CoV-2 virus and/or diagnosisof COVID-19 infection under section 564(b)(1) of the Act, 21 U.S.C.360bbb-3(b) (1), unless the authorization is terminated or revokedsooner.When diagnostic testing is negative, the possibility of a falsenegative result should be considered in the context of a patient'srecent exposures and the presence of clinical signs and symptomsconsistent with COVID-19. An individual without symptoms of COVID-19and who is not shedding SARS-CoV-2 virus would expect to have anegative (not detected) result in this assay. PERFORMED BY: Handprint Qyikdw8968 [facility] [id number] INHOUSE COVID 19 (ONLY) RAPI D (46730)Ordered By: Lizzy Long on 04-08-2021 SARS-CoV-2 (COVID-19) RNA DORY+probe Ql (Unsp spec) Negative Normal [facility]; [facility] Work Phone: INHOUSE COVID 19 (ONLY) RAPID (84124) Negative Normal Comprehensi ve Internal Medicine; [facility] Work Phone: CBC W/AUTO DIFF WBC (09779)O rdered By: Inductor Tester on 02-06-2021 Basophils (Bld) [#/Vol] 0.0 10*3/uL Normal 0.0-0.2 [facility]; [facility] Work Phone: Comment on above: PATIENT WAS FASTINGP ERFORMED BY: BRIGITTE [facility] Qeqjrw6063 [address] RoadDublin [place] [id number] Basophils/100 WBC (Bld) 0 % Normal [facility]; [facility] Work Phone: Comment on above: PATIENT WAS FASTINGP ERFORMED BY: [facility] Fzcide3094 [address] RoadDublin [place] [id number] Eosinophils (Bld) [#/Vol] 0.1 10*3/uL Normal 0.0-0.4 [facility]; [facility] Work Phone: Comment on above: PATIENT WAS FASTINGP ERFORMED BY: [facility] Bvtmoc9061 Kerr RoadDublin [place] [id number] Eosinophils/100 WBC (Bld) 2 % Normal [facility]; [facility] Work Phone: Comment on above: PATIENT WAS FASTINGP ERFORMED BY: [facility] Pmdzwh4570 [address]bl[address] [place] [id number] Erythrocyte distribution width (RBC) [Ratio] 12.1 % Normal 11.6-15.4 [facility]; [facility] Work Phone: Comment on above: PATIENT WAS FASTINGP ERFORMED BY: LabLiv Hfbmsl5698 [address] RoadDublin [place] [id number] Hematocrit (Bld) [Volume fraction] 41.4 % Normal 37.5-51.0 [facility]; [facility] Work Phone: Comment on above: PATIENT WAS FASTINGP ERFORMED BY: [facility] Ayqzgj5786 Kerr Roadblin [place] [id number] Hemoglobin (Bld) [Mass/Vol] 14.6 g/dL Normal 13.0-17.7 [facility]; [facility] Work Phone: Comment on above: PATIENT WAS FASTINGP ERFORMED BY: LabCo Uujzjn0973 [address] RoadDublin [place] [id number] Immature granulocytes (Bld) [#/Vol] 0.0 10*3/uL Normal 0.0-0.1 [facility]; [facility] Work Phone: Comment on above: PATIENT WAS FASTINGP ERFORMED BY: LabCo Fzbyxf8972 [address] [facility] [place] [id number] Immature granulocytes/100 WBC (Bld) 0 % Normal [facility]; [facility] Work Phone: Comment on above: PATIENT WAS FASTINGP ERFORMED BY: LabCoKessler Institute for RehabilitationPeqoss8144 [address] [facility] [place] [id number] Lymphocytes (Bld) [#/Vol] 1.4 10*3/uL Normal 0.7-3.1 [facility]; [facility] Work Phone: Comment on above: PATIENT WAS FASTINGP ERFORMED BY: LabCo Pwrnaf8561 [address] [facility] [id number] Lymphocytes/100 WBC (Bld) 22 % Normal [facility]; [facility] Work Phone: Comment on above: PATIENT WAS FASTINGP ERFORMED BY: [facility] Qfknnb4636 [facility] [id number] MCH (RBC) [Entitic mass] 31.1 pg Normal 26.6-33.0 [facility]; [facility] Work Phone: Comment on above: PATIENT WAS FASTINGP ERFORMED BY: [facility]6370 [address] [facility] [id number] MCHC (RBC) [Mass/Vol] 35.3 g/dL Normal 31.5-35.7 [facility] prehensive Internal Medicine; [facility] Work Phone: Comment on above: PATIENT WAS FASTINGP ERFORMED BY: LabCo Nsytpa7050 [address] [facility] [place] [id number] MCV (RBC) [Entitic vol] 88 fL Normal 79-97 [facility]; [facility] Work Phone: Comment on above: PATIENT WAS FASTINGP ERFORMED BY: [facility]Co Hrdrkw9345 [address] [facility] [place] [id number] Monocytes (Bld) [#/Vol] 0.5 10*3/uL Normal 0.1-0.9 [facility]; [facility] Work Phone: Comment on above: PATIENT WAS FASTINGP ERFORMED BY: BRIGITTE LabCoelsa CostaZctbkd1258 Kerr RoadDublin [place] [id number] Monocytes/100 WBC (Bld) 8 % Normal [facility]; [facility] Work Phone: Comment on above: PATIENT WAS FASTINGP ERFORMED BY: BRIGITTE [facility] Txmgzn1659 [address] RoadDublin [place] [id number] Neutrophils (Bld) [#/Vol] 4.3 10*3/uL Normal 1.4-7.0 [facility]; [facility] Work Phone: Comment on above: PATIENT WAS FASTINGP ERFORMED BY: BRIGITTE LabCoelsa Sexgsx9972 [address] RoadDublin [place] [id number] Neutrophils/100 WBC (Bld) 68 % Normal [facility]; [facility] Work Phone: Comment on above: PATIENT WAS FASTINGP ERFORMED BY: BRIGITTE [facility] Rvxaqu2704 [address] RoadDublin [place] [id number] Platelets (Bld) [#/Vol] 218 10*3/uL Normal 150-450 [facility]; [facility] Work Phone: Comment on above: PATIENT WAS FASTINGP ERFORMED BY: BRIGITTE [facility] Dvfiuv4282 [address] RoadDublin [place] [id number] RBC (Bld) [#/Vol] 4.70 10*6/uL Normal 4.14-5.80 Compr ehensive Internal Medicine; [facility] Work Phone: Comment on above: PATIENT WAS FASTINGP ERFORMED BY: BRIGITTE [facility] Yztjnk8697 [address] RoadDublin [place] [id number] WBC (Bld) [#/Vol] 6.4 10*3/uL Normal 3.4-10.8 Compre hensive Internal Medicine; [facility] Work Phone: Comment on above: PATIENT WAS FASTINGP ERFORMED BY: BRIGITTE [facility] Oksfrf0116 [address] RoadDublin [place] [id number] LIPID PANEL (00175)Ordered B y: Inductor Tester on 02-06-2021 Cholesterol [Mass/Vol] 181 mg/dL Normal 100-199 [facility] medicine[facility]; [facility] Work Phone: Comment on above: PATIENT WAS FASTINGP ERFORMED BY: CB [facility] Wliwxc6058 [address] RoadDublin [place] [id number] Cholesterol in HDL [Mass/Vol] 42 mg/dL Normal [facility]; [facility] Work Phone: Comment on above: PATIENT WAS FASTINGP ERFORMED BY: CB [facility] Anysjh1678 [address] RoadDublin [place] [id number] Triglyceride [Mass/Vol] 60 mg/dL Normal 0-149 [facility]; [facility] Work Phone: Comment on above: PATIENT WAS FASTINGP ERFORMED BY: CB [facility] Nfwshv2950 [address] RoadDublin [place] [id number] LIPID PANEL (52855) 11 mg/dL Normal 5-40 [facility]ensive Internal Medicine; [facility] Work Phone: Comment on above: PATIENT WAS FASTINGP ERFORMED BY: CB [facility] Fqqddt8096 [address] RoadDublin [place] [id number] LIPID PANEL (51636) 128 mg/dL Abnormal 0-99 [facility]ensive Internal Medicine; [facility] Work Phone: Comment on above: PATIENT WAS FASTINGP ERFORMED BY: CB [facility] Copnxs5754 [address] RoadDublin [place] [id number] LIPID PANEL (20504) 3.0 {ratio} Normal 0.0-3.6 [facility]; [facility] Work Phone: Comment on above: LDL/HDL Ratio Men Wo men 1/2 Avg.Risk 1.0 1.5 Avg.Risk 3.6 3.2 2X Avg.Risk 6.2 5.0 3X Avg.Risk 8.0 6.1 PATIENT WAS FASTINGP ERFORMED BY: CB [facility] Mjyqqs7757 [address] RoadDublin [place] [id number] METABOLIC PANEL, COMPREHENSI VE (74879)Ordered By: Inductor Tester on 02-06-2021 Albumin [Mass/Vol] 4.7 g/dL Normal 3.7-4.7 [facility] Internal Medicine; [facility] Work Phone: Comment on above: PATIENT WAS FASTINGP ERFORMED BY: BRIGITTE [facility] Zrlvgu9069 [address] RoadDublin [place] [id number] Albumin/Globulin [Mass ratio] 2.2 {ratio} Normal 1.2-2.2 [facility]; [facility] Work Phone: Comment on above: PATIENT WAS FASTINGP ERFORMED BY: CB [facility] Fqsvsw6532 [address] RoadDublin [place] [id number] ALP [Catalytic activity/Vol] 57 U/L Normal 44-121 [facility]; [facility] Work Phone: Comment on above: Please note refere nce interval change PATIENT WAS FASTINGP ERFORMED BY: BRIGITTE [facility] Ogpwji4451 [address] RoadDublin [place] [id number] ALT [Catalytic activity/Vol] 14 U/L Normal 0-44 [facility]; [facility] Work Phone: Comment on above: PATIENT WAS FASTINGP ERFORMED BY: BRIGITTE [facility] Amdrid6493 [address] RoadDublin [place] [id number] AST [Catalytic activity/Vol] 15 U/L Normal 0-40 [facility]; [facility] Work Phone: Comment on above: PATIENT WAS FASTINGP ERFORMED BY: BRIGITTE [facility] Jnaxpg0159 [address] RoadDublin [place] [id number] Bilirubin [Mass/Vol] 0.8 mg/dL Normal 0.0-1.2 [facility] Internal Medicine; [facility] Work Phone: Comment on above: PATIENT WAS FASTINGP ERFORMED BY: BRIGITTE [facility] Iigcds8184 [address] RoadDublin [place] [id number] Calcium [Mass/Vol] 9.3 mg/dL Normal 8.6-10.2 [facility] Internal Medicine; [facility] Work Phone: Comment on above: PATIENT WAS FASTINGP ERFORMED BY: Michelle Costa6370 [facility] [id number] Chloride [Moles/Vol] 102 mmol/L Normal 96-106 Comp rehensive Internal Medicine; [facility] Work Phone: Comment on above: PATIENT WAS FASTINGP ERFORMED BY: BRIGITTE Costa6370 [facility] [id number] CO2 [Moles/Vol] 28 mmol/L Normal 20-29 [facility] Internal Medicine; [facility] Work Phone: Comment on above: PATIENT WAS FASTINGP ERFORMED BY: Michelle Chaneylin6370 [facility] [id number] Creatinine [Mass/Vol] 0.84 mg/dL Normal 0.76-1.27 [facility] Internal Medicine; [facility] Work Phone: Comment on above: PATIENT WAS FASTINGP ERFORMED BY: Raúl Dvpsyg8790 [facility] [id number] GFR/1.73 sq M.predicted among blacks CKD-EPI (S/P/Bld) [Vol rate/Area] 96 mL/min/1.73 Normal [facility]; [facility] Work Phone: Comment on above: In accordance with recommendations from the NKF-ASN Task force, [facility] is in the [facility] of updating its eGFR calculation to the 2020 CKD-EPI creatinine equation that estimates kidney function without a race variable. PATIENT WAS FASTINGP ERFORMED BY: Michelle Chaneylin6370 [facility] [id number] GFR/1.73 sq M.predicted among non-blacks CKD-EPI (S/P/Bld) [Vol rate/Area] 83 mL/min/1.73 Normal [facility]; [facility] Work Phone: Comment on above: PATIENT WAS FASTINGP ERFORMED BY: Michelle Chaneylin6370 [facility] [id number] Globulin (S) [Mass/Vol] 2.1 g/dL Normal 1.5-4.5 [facility]; [facility] Work Phone: Comment on above: PATIENT WAS FASTINGP ERFORMED BY: CB [facility] Wewncj6882 [address] RoadD[address] [place] [id number] Glucose [Mass/Vol] 91 mg/dL Normal 65-99 [facility] Internal Medicine; [facility] Work Phone: Comment on above: PATIENT WAS FASTINGP ERFORMED BY: CB [facility] Lgrslt6846 [address] RoadDublin [place] [id number] Potassium [Moles/Vol] 4.0 mmol/L Normal 3.5-5.2 [facility] Internal Medicine; [facility] Work Phone: Comment on above: PATIENT WAS FASTINGP ERFORMED BY: CB [facility] Caxvxt3702 [address] RoadDublin [place] [id number] Protein [Mass/Vol] 6.8 g/dL Normal 6.0-8.5 [facility] Internal Medicine; [facility] Work Phone: Comment on above: PATIENT WAS FASTINGP ERFORMED BY: CB [facility] Dhwqrd9975 [address] RoadDublin [place] [id number] Sodium [Moles/Vol] 142 mmol/L Normal 134-144 [facility] Internal Medicine; [facility] Work Phone: Comment on above: PATIENT WAS FASTINGP ERFORMED BY: CB [facility] Rjnupy3466 [address] RoadDublin [place] [id number] Urea nitrogen [Mass/Vol] 17 mg/dL Normal 8-27 [facility] Internal Medicine; [facility] Work Phone: Comment on above: PATIENT WAS FASTINGP ERFORMED BY: CB [facility] Syxily9430 [address] RoadDublin [place] [id number] Urea nitrogen/Creatinine [Mass ratio] 20 mg/mg Normal 10-24 [facility] Internal Medicine; [facility] Work Phone: Comment on above: PATIENT WAS FASTINGP ERFORMED BY: CB [facility] Wxrjqj4526 [address] RoadDublin [place] [id number] URINALYSIS, W/ MICRO ([id number]) Ordered By: Inductor Tester on 02-06-2021 Appearance (U) Clear Normal Comprehens [facility]; [facility] Work Phone: Comment on above: PATIENT WAS FASTINGP ERFORMED BY: BRIGITTE Costa6370 [address] RoadD[address] [place] [id number] Bilirubin Ql (U) Negative Normal Comprehe nsive Internal Medicine; [facility] Work Phone: Comment on above: PATIENT WAS FASTINGP ERFORMED BY: BRIGITTE Costa6370 [address] [place] [id number] Color (U) Yellow Normal [facility]; [facility] Work Phone: Comment on above: PATIENT WAS FASTINGP ERFORMED BY: BRIGITTE Costa6[address] [place] [id number] Glucose Ql (U) Negative Normal Comprehens [facility]; [facility] Work Phone: Comment on above: PATIENT WAS FASTINGP ERFORMED BY: BRIGITET Costa[address] [facility]in [place] [id number] Hemoglobin Ql (U) Negative Normal Compreh ensive Internal Medicine; [facility] Work Phone: Comment on above: PATIENT WAS FASTINGP ERFORMED BY: BRIGITTE Costa[address] [facility]bl[facility] [place] [id number] Ketones Ql (U) Negative Normal Comprehens [facility]; [facility] Work Phone: Comment on above: PATIENT WAS FASTINGP ERFORMED BY: BRIGITTE Costa[address] [facility]in [place] [id number] Leukocyte esterase Test strip Ql (U) Negative Normal [facility]; [facility] Work Phone: Comment on above: PATIENT WAS FASTINGP ERFORMED BY: BRIGITTE Chaneylin6370 [address] [facility] HospitalD[facility] [place] [id number] Microscopic observation LM Nom (Urine sed) MICRON Normal [facility]; [facility] Work Phone: Comment on above: Microscopic follows if indicated. PATIENT WAS FASTINGP ERFORMED BY: BRIGITTE Chaneylin6370 [address] [employer] Technologiesbl[place] [id number] Microscopic observation LM Nom (Urine sed) See below: Normal [facility]; [facility] Work Phone: Comment on above: Microscopic was flavia cated and was performed. PATIENT WAS FASTINGP ERFORMED BY: BRIGITTE LabCoelsa CostaAmjmgn5389 [address] Roadbl[address] [place] [id number] Nitrite Ql (U) Negative Normal Comprehens [facility]; [facility] Work Phone: Comment on above: PATIENT WAS FASTINGP ERFORMED BY: BRIGITTE [facility] Hmstrd3291 [address] [facility] [id number] pH (U) 6.5 [pH] Normal 5.0-7.5 [facility]; [facility] Work Phone: Comment on above: PATIENT WAS FASTINGP ERFORMED BY: BRIGITTE [facility] Fpgiul0700 [address] [facility] [id number] Protein Ql (U) Negative Normal Comprehens [facility]; [facility] Work Phone: Comment on above: PATIENT WAS FASTINGP ERFORMED BY: [facility] Djdcak3726 [facility] [id number] Specific gravity (U) [Rel density] 1.015 1 Normal 1.005-1.03 0 [facility]; [facility] Work Phone: Comment on above: PATIENT WAS FASTINGP ERFORMED BY: [facility] Xkrady9416 [address] [facility] [id number] Urobilinogen (U) [Mass/Vol] 0.2 mg/dL Normal 0.2-1.0 [facility]; [facility] Work Phone: Comment on above: PATIENT WAS FASTINGP ERFORMED BY: [facility] Howaih2166 [address] [facility] [id number] HEPATIC FUNCTION PANEL (8007 [id number])Ordered By: Inductor Tester on 09-10-2020 Albumin [Mass/Vol] 4.4 g/dL Normal 3.7-4.7 [facility] Internal Medicine; [facility] Work Phone: Comment on above: PLEASE DRAW THIS WIT H OTHER LABS ORDERED IN CHART.please fax to Dr. Tani Valiente [phone] SEND CBC; PATIENT NOT FASTINGPERFORMED BY: CB [facility] Tqvhjq0683 [address] [employer] TechnologiesDublin [place] [id number] ALP [Catalytic activity/Vol] 62 U/L Normal 48-121 [facility]; [facility] Internal Medicine Work Phone: Comment on above: Please note refere nce interval change PLEASE DRAW THIS WIT H OTHER LABS ORDERED IN CHART.please fax to Dr. Tani Valiente [phone] SEND CBC; PATIENT NOT FASTINGPERFORMED BY: [facility] Kxlain0621 [address] [employer] TechnologiesDublin [place] [id number] ALT [Catalytic activity/Vol] 12 U/L Normal 0-44 [facility]; [facility] Work Phone: Comment on above: PLEASE DRAW THIS WIT H OTHER LABS ORDERED IN CHART.please fax to Dr. Tani Valiente [phone] SEND CBC; PATIENT NOT FASTINGPERFORMED BY: Lab[facility] Hodjgb4020 [address] [employer] TechnologiesDublin [place] [id number] AST [Catalytic activity/Vol] 15 U/L Normal 0-40 [facility]; [facility] Work Phone: Comment on above: PLEASE DRAW THIS WIT H OTHER LABS ORDERED IN CHART.please fax to Dr. Tani Lee-[phone] SEND CBC; PATIENT NOT FASTINGPERFORMED BY: [facility] Bywelc0584 [address] Ag[employer] Edge TechnologiesDuin [place] [id number] Bilirubin [Mass/Vol] 0.6 mg/dL Normal 0.0-1.2 [facility] Internal Medicine; [facility] Internal Medicine Work Phone: Comment on above: PLEASE DRAW THIS WIT H OTHER LABS ORDERED IN CHART.please fax to Dr. Tani Valiente [phone] SEND CBC; PATIENT NOT FASTINGPERFORMED BY: [facility] Confpt3089 [address] RoadDublin [place] [id number] Bilirubin.direct [Mass/Vol] 0.16 mg/dL Normal 0.00-0.40 [facility]; [facility] Work Phone: Comment on above: PLEASE DRAW THIS WIT H OTHER LABS ORDERED IN CHART.please fax to Dr. Freire - [phone] SEND CBC; PATIENT NOT FASTINGPERFORMED BY: CB [facility] Nzbfxs7610 [address] RoadDublin [place] [id number] Protein [Mass/Vol] 6.7 g/dL Normal 6.0-8.5 [facility] Internal Medicine; [facility] Work Phone: Comment on above: PLEASE DRAW THIS WIT H OTHER LABS ORDERED IN CHART.please fax to Dr. Tani Valiente [phone] SEND CBC; PATIENT NOT FASTINGPERFORMED BY: CB [facility] Awebds7187 [address] RoadDublin [place] [id number] METABOLIC PANEL, BASIC ([id number] [id number])Ordered By: Inductor Tester on 09-10-2020 Calcium [Mass/Vol] 9.0 mg/dL Normal 8.6-10.2 [facility] Internal Medicine; [facility] Work Phone: Comment on above: PATIENT NOT FASTINGP ERFORMED BY: CB [facility] Wziwzs9371 [address] RoadDublin [place] [id number] Chloride [Moles/Vol] 106 mmol/L Normal 96-106 [facility]; [facility] Work Phone: Comment on above: PATIENT NOT FASTINGP ERFORMED BY: CB [facility] Mxbzuj5881 [address] RoadDublin [place] [id number] CO2 [Moles/Vol] 25 mmol/L Normal 20-29 [facility] Internal Medicine; [facility] Work Phone: Comment on above: PATIENT NOT FASTINGP ERFORMED BY: CB [facility] Pxoowo6058 [address] RoadDublin [place] [id number] Creatinine [Mass/Vol] 0.79 mg/dL Normal 0.76-1.27 [facility]; [facility] Work Phone: Comment on above: PATIENT NOT FASTINGP ERFORMED BY: CB [facility] Rjfkam7761 [address] RoadDublin [place] [id number] GFR/1.73 sq M.predicted among blacks CKD-EPI (S/P/Bld) [Vol rate/Area] 99 mL/min/1.73 Normal [facility]; [facility] Work Phone: Comment on above: [facility] in compliance with the current recommendations of the National Kidney Foundation. [facility] will update reporting as new guidelines are published from the NKF-ASN Task force. PATIENT NOT FASTINGP ERFORMED BY: [facility] Skwugd1541 [facility] [id number] GFR/1.73 sq M.predicted among non-blacks CKD-EPI (S/P/Bld) [Vol rate/Area] 85 mL/min/1.73 Normal [facility]; [facility] Work Phone: Comment on above: PATIENT NOT FASTINGP ERFORMED BY: [facility] Pppkiw6796 [facility] [id number] Glucose [Mass/Vol] 97 mg/dL Normal 65-99 [facility]; [facility] Work Phone: Comment on above: PATIENT NOT FASTINGP ERFORMED BY: Raúl Vhmliy2178 [facility] [id number] Potassium [Moles/Vol] 4.1 mmol/L Normal 3.5-5.2 [facility] prehensive Internal Medicine; [facility] Work Phone: Comment on above: PATIENT NOT FASTINGP ERFORMED BY: [facility] Vxxkre9317 [facility] [id number] Sodium [Moles/Vol] 143 mmol/L Normal 134-144 [facility]; [facility] Work Phone: Comment on above: PATIENT NOT FASTINGP ERFORMED BY: [facility] Nspfya9812 [facility] [id number] Urea nitrogen [Mass/Vol] 21 mg/dL Normal 8-27 [facility]; [facility] Work Phone: Comment on above: PATIENT NOT FASTINGP ERFORMED BY: [place] 8149670 [address] RoadD[address] [place] [id number] Urea nitrogen/Creatinine [Mass ratio] 27 mg/mg Abnormal 10-24 [facility]; [facility] Work Phone: Comment on above: PATIENT NOT FASTINGP ERFORMED BY: BRIGITTE Chaneylin6370 [address] RoadD[address] [place] [id number] URINALYSIS ([id number])Ordered By : Inductor Tester on 09-10-2020 Appearance (U) Clear Normal Comprehens [facility]; [facility] Work Phone: Comment on above: PATIENT NOT FASTINGP ERFORMED BY: BRIGITTE LabLiv Afvhmh9195 [address] RoadDublin [place] [id number] Bilirubin Ql (U) Negative Normal Comprehe nsive Internal Medicine; [facility] Work Phone: Comment on above: PATIENT NOT FASTINGP ERFORMED BY: BRIGITTE Raúl Cpudpj4875 [address] RoadD[address] [place] [id number] Color (U) Yellow Normal [facility]; [facility] Work Phone: Comment on above: PATIENT NOT FASTINGP ERFORMED BY: BRIGITTE LabL[facility] Wkjvab3629 [address] RoadD[address] [place] [id number] Glucose Ql (U) Negative Normal Comprehens [facility] [facility]; [facility] Work Phone: Comment on above: PATIENT NOT FASTINGP ERFORMED BY: BRIGITTE [facility] Pgsmhn0857 [address] RoadD[address] [place] [id number] Hemoglobin Ql (U) Negative Normal Compreh ensive Internal Medicine; [facility] Work Phone: Comment on above: PATIENT NOT FASTINGP ERFORMED BY: BRIGITTE LabLiv Iropkq7707 [address] RoadDublin [place] [id number] Ketones Ql (U) Negative Normal Comprehens [facility]; [facility] Work Phone: Comment on above: PATIENT NOT FASTINGP ERFORMED BY: BRIGITTE LabLiv Gafhvb5366 [address] RoadDublin [place] [id number] Leukocyte esterase Test strip Ql (U) Negative Normal [facility]; [facility] Work Phone: Comment on above: PATIENT NOT FASTINGP ERFORMED BY: BRIGITTE Costa[address] [facility] [place] [id number] Microscopic observation LM Nom (Urine sed) MICNIP Normal [facility]; [facility] Work Phone: Comment on above: Microscopic not flavia cated and not performed. PATIENT NOT FASTINGP ERFORMED BY: BRIGITTE Costa6370 [address] [facility] [id number] Nitrite Ql (U) Negative Normal Comprehens [facility] [facility]; [facility] Work Phone: Comment on above: PATIENT NOT FASTINGP ERFORMED BY: BRIGITTE Costa6370 [facility] [id number] pH (U) 5.0 [pH] Normal 5.0-7.5 [facility]; [facility] Work Phone: Comment on above: PATIENT NOT FASTINGP ERFORMED BY: BRIGITTE Costa6370 [address] [facility] [id number] Protein Ql (U) Trace Normal Comprehens [facility] [facility]; [facility] Work Phone: Comment on above: PATIENT NOT FASTINGP ERFORMED BY: BRIGITTE Costa6370 [facility] [id number] Specific gravity (U) [Rel density] 1.029 1 Normal 1.005-1.03 0 [facility]; [facility] Work Phone: Comment on above: PATIENT NOT FASTINGP ERFORMED BY: BRIGITTE Chaneylin6370 [facility] [id number] Urobilinogen (U) [Mass/Vol] 0.2 mg/dL Normal 0.2-1.0 [facility]; [facility] Work Phone: Comment on above: PATIENT NOT FASTINGP ERFORMED BY: BRIGITTE Costa[address] [facility] [place] [id number] CBC W/AUTO DIFF WBC ([id number])O rdered By: Inductor Tester on 04-28-2020 Basophils (Bld) [#/Vol] 0.0 {x10E3/uL} Normal 0.0-0.2 [facility]; [facility] Work Phone: Comment on above: PATIENT WAS FASTINGP ERFORMED BY: BRIGITTE Michelle Costa[address] [place] [id number] Basophils (Bld) [#/Vol] 0.0 10*3/uL Normal 0.0-0.2 [facility]; [facility] Work Phone: Comment on above: PATIENT WAS FASTINGP ERFORMED BY: BRIGITTE LabCo Utgwmq3522 [address] RoadDublin [place] [id number] Basophils/100 WBC (Bld) 0 % Normal [facility]; [facility] Work Phone: Comment on above: PATIENT WAS FASTINGP ERFORMED BY: BRIGITTE Raúlelsa Edijfl3684 [facility] [id number] Eosinophils (Bld) [#/Vol] 0.1 {x10E3/uL} Normal 0.0-0.4 [facility]; [facility] Work Phone: Comment on above: PATIENT WAS FASTINGP ERFORMED BY: BRIGITTE DaysiSilvio Ranhyc[address] [facility] [place] [id number] Eosinophils (Bld) [#/Vol] 0.1 10*3/uL Normal 0.0-0.4 [facility]; [facility] Work Phone: Comment on above: PATIENT WAS FASTINGP ERFORMED BY: BRIGITTE LabCo Advehv0329 [address] RoadDuin [place] [id number] Eosinophils/100 WBC (Bld) 2 % Normal [facility]; [facility] Work Phone: Comment on above: PATIENT WAS FASTINGP ERFORMED BY: BRIGITTE LabCo Wvxfzm9225 [address] [facility] [place] [id number] Erythrocyte distribution width (RBC) [Ratio] 12.1 % Normal 11.6-15.4 [facility]; [facility] Work Phone: Comment on above: PATIENT WAS FASTINGP ERFORMED BY: BRIGITTE [facility]6370 [facility] [id number] Hematocrit (Bld) [Volume fraction] 41.7 % Normal 37.5-51.0 [facility]; [facility] Work Phone: Comment on above: PATIENT WAS FASTINGP ERFORMED BY: [facility] Tlkxmp1769 [facility] [id number] Hemoglobin (Bld) [Mass/Vol] 13.8 g/dL Normal 13.0-17.7 [facility]; [facility] Work Phone: Comment on above: PATIENT WAS FASTINGP ERFORMED BY: [place] [id number] [facility] [id number] Immature granulocytes (Bld) [#/Vol] 0.0 {x10E3/uL} Normal 0.0-0.1 [facility]; [facility] Work Phone: Comment on above: PATIENT WAS FASTINGP ERFORMED BY: [place] [id number] [facility] [id number] Immature granulocytes (Bld) [#/Vol] 0.0 10*3/uL Normal 0.0-0.1 [facility]; [facility] Work Phone: Comment on above: PATIENT WAS FASTINGP ERFORMED BY: [facility]iC[facility] Center6370 [facility] [id number] Immature granulocytes/100 WBC (Bld) 1 % Normal [facility]; [facility] Work Phone: Comment on above: PATIENT WAS FASTINGP ERFORMED BY: LabCovenant [facility] Center6370 [facility] [id number] Lymphocytes (Bld) [#/Vol] 1.2 {x10E3/uL} Normal 0.7-3.1 [facility]; [facility] Work Phone: Comment on above: PATIENT WAS FASTINGP ERFORMED BY: [facility] Cumdiq3378 [facility] [id number] Lymphocytes (Bld) [#/Vol] 1.2 10*3/uL Normal 0.7-3.1 [facility]; [facility] Work Phone: Comment on above: PATIENT WAS FASTINGP ERFORMED BY: CB [facility] Vfsunb9857 [address] RoadDublin [place] [id number] Lymphocytes/100 WBC (Bld) 15 % Normal [facility]; [facility] Work Phone: Comment on above: PATIENT WAS FASTINGP ERFORMED BY: CB [facility] Fxnqaj9508 [address] RoadDublin [place] [id number] MCH (RBC) [Entitic mass] 30.1 pg Normal 26.6-33.0 [facility]; [facility] Work Phone: Comment on above: PATIENT WAS FASTINGP ERFORMED BY: CB [facility] Oencrc5949 [address] RoadDublin [place] [id number] MCHC (RBC) [Mass/Vol] 33.1 g/dL Normal 31.5-35.7 [facility] prehensive Internal Medicine; [facility] Work Phone: Comment on above: PATIENT WAS FASTINGP ERFORMED BY: BRIGITTE [facility] Mlwiqh1287 [address] RoadDublin [place] [id number] MCV (RBC) [Entitic vol] 91 fL Normal 79-97 [facility]; [facility] Work Phone: Comment on above: PATIENT WAS FASTINGP ERFORMED BY: BRIGITTE [facility] Firbkb2041 [address] RoadDublin [place] [id number] Monocytes (Bld) [#/Vol] 0.7 {x10E3/uL} Normal 0.1-0.9 [facility]; [facility] Work Phone: Comment on above: PATIENT WAS FASTINGP ERFORMED BY: CB [facility] Ssdugj0081 [address] RoadDublin [place] [id number] Monocytes (Bld) [#/Vol] 0.7 10*3/uL Normal 0.1-0.9 [facility]; [facility] Work Phone: Comment on above: PATIENT WAS FASTINGP ERFORMED BY: CB [facility] Mkhhse8770 [address] RoadDublin [place] [id number] Monocytes/100 WBC (Bld) 9 % Normal [facility]; [facility] Work Phone: Comment on above: PATIENT WAS FASTINGP ERFORMED BY: BRIGITTE Michelle Costa[address] [place] [id number] Neutrophils (Bld) [#/Vol] 5.9 {x10E3/uL} Normal 1.4-7.0 [facility]; [facility] Work Phone: Comment on above: PATIENT WAS FASTINGP ERFORMED BY: BRIGITTE LabSilvio Costa6[address] RoadDublin [place] [id number] Neutrophils (Bld) [#/Vol] 5.9 10*3/uL Normal 1.4-7.0 [facility]; [facility] Work Phone: Comment on above: PATIENT WAS FASTINGP ERFORMED BY: BRIGITTE DaysiSilvio ChaneyBgpuks6[address] RoadDublin [place] [id number] Neutrophils/100 WBC (Bld) 73 % Normal [facility]; [facility] Work Phone: Comment on above: PATIENT WAS FASTINGP ERFORMED BY: BRIGITTE Raúlelsa ChaneyGnhamk0420 [address] RoadDublin [place] [id number] Platelets (Bld) [#/Vol] 272 {x10E3/uL} Normal 150-450 [facility]; [facility] Work Phone: Comment on above: PATIENT WAS FASTINGP ERFORMED BY: BRIGITTE Raúlelsa ChaneyVrilbr6484 [address] RoadDublin [place] [id number] Platelets (Bld) [#/Vol] 272 10*3/uL Normal 150-450 [facility]; [facility] Work Phone: Comment on above: PATIENT WAS FASTINGP ERFORMED BY: BRIGITTE LabSilvio ChaneyPmvvih9337 [address] RoadDublin [place] [id number] RBC (Bld) [#/Vol] 4.59 {x10E6/uL} Normal 4.14-5.80 [facility]; [facility] Work Phone: Comment on above: PATIENT WAS FASTINGP ERFORMED BY: BRIGITTE [facility] Twdsar1520 [address] RoadDublin [place] [id number] RBC (Bld) [#/Vol] 4.59 10*6/uL Normal 4.14-5.80 [facility]ensive Internal Medicine; [facility] Work Phone: Comment on above: PATIENT WAS FASTINGP ERFORMED BY: CB [facility] Kijflh3800 [address] RoadDublin [place] [id number] WBC (Bld) [#/Vol] 7.9 {x10E3/uL} Normal 3.4-10.8 [facility]; [facility] Work Phone: Comment on above: PATIENT WAS FASTINGP ERFORMED BY: BRIGITTE [facility] Huddgn6374 [address] RoadDublin [place] [id number] WBC (Bld) [#/Vol] 7.9 10*3/uL Normal 3.4-10.8 [facility] Internal Medicine; [facility] Work Phone: Comment on above: PATIENT WAS FASTINGP ERFORMED BY: [facility] Cmsjwl4584 [address] RoadDublin [place] [id number] LIPID PANEL (09242)Ordered B y: Inductor Tester on 04-28-2020 Cholesterol [Mass/Vol] 162 mg/dL Normal 100-199 [facility]; [facility] Work Phone: Comment on above: PATIENT WAS FASTINGP ERFORMED BY: LabCo Ucustf8047 [address] RoadDublin [place] [id number] Cholesterol in HDL [Mass/Vol] 38 mg/dL Abnormal [facility]; [facility] Work Phone: Comment on above: PATIENT WAS FASTINGP ERFORMED BY: CB [facility] Dkuwgb7245 [address] RoadDublin [place] [id number] Cholesterol in LDL/Cholesterol in HDL [Mass ratio] 2.9 {ratio} Normal 0.0-3.6 [facility]; [facility] Work Phone: Comment on above: LDL/HDL Ratio Men Wo men 1/2 Avg.Risk 1.0 1.5 Avg.Risk 3.6 3.2 2X Avg.Risk 6.2 5.0 3X Avg.Risk 8.0 6.1 PATIENT WAS FASTINGP ERFORMED BY: BRIGITTE LabSilvio ChaneyDlfszi3992 [facility] [id number] Triglyceride [Mass/Vol] 70 mg/dL Normal 0-149 [facility]; [facility] Work Phone: Comment on above: PATIENT WAS FASTINGP ERFORMED BY: BRIGITTE LabSilvio ChaneyNypoxz8913 [facility] [id number] LIPID PANEL (64525) 14 mg/dL Normal 5-40 [facility]ensive [facility] Medicine; [facility] Work Phone: Comment on above: PATIENT WAS FASTINGP ERFORMED BY: BRIGITTE LabSilvio ChaneyRvujsr5968 [facility] [id number] LIPID PANEL (86270) 110 mg/dL Abnormal 0-99 [facility] Internal Medicine; [facility] Work Phone: Comment on above: PATIENT WAS FASTINGP ERFORMED BY: BRIGITTE Chaneylin6370 [facility] [id number] LIPID PANEL (29004) 2.9 {ratio} Normal 0.0-3.6 [facility] Internal Medicine; [facility] Work Phone: Comment on above: LDL/HDL Ratio Men Wo men 1/2 Avg.Risk 1.0 1.5 Avg.Risk 3.6 3.2 2X Avg.Risk 6.2 5.0 3X Avg.Risk 8.0 6.1 PATIENT WAS FASTINGP ERFORMED BY: BRIGITTE Harley Anydqb6144 [facility] [id number] METABOLIC PANEL, COMPREHENSI VE ([id number])Ordered By: Inductor Tester on 04-28-2020 Albumin [Mass/Vol] 4.0 g/dL Normal 3.7-4.7 [facility] Internal Medicine; [facility] Work Phone: Comment on above: PATIENT WAS FASTINGP ERFORMED BY: BRIGITTE LabCo Tsbhgh3404 [facility] [id number] Albumin/Globulin [Mass ratio] 1.5 {ratio} Normal 1.2-2.2 [facility]; [facility] Work Phone: Comment on above: PATIENT WAS FASTINGP ERFORMED BY: CB [facility] Domoec8223 [address] RoadDublin [place] [id number] ALP [Catalytic activity/Vol] 70 [iU]/L Normal 39-117 [facility]; [facility] Work Phone: Comment on above: PATIENT WAS FASTINGP ERFORMED BY: CB [facility] Idewxe6476 [address] RoadDublin [place] [id number] ALP [Catalytic activity/Vol] 70 U/L Normal 39-117 [facility]; [facility] Work Phone: Comment on above: PATIENT WAS FASTINGP ERFORMED BY: CB [facility] Ihpgps6106 [address] RoadD[address] [place] [id number] ALT [Catalytic activity/Vol] 11 [iU]/L Normal 0-44 [facility]; [facility] Work Phone: Comment on above: PATIENT WAS FASTINGP ERFORMED BY: CB [facility] Tdfdwm6425 [address] RoadDublin [place] [id number] ALT [Catalytic activity/Vol] 11 U/L Normal 0-44 [facility]; [facility] Work Phone: Comment on above: PATIENT WAS FASTINGP ERFORMED BY: BRIGITTE LabCoelsa Lxuegd0967 [address] RoadDublin [place] [id number] AST [Catalytic activity/Vol] 12 [iU]/L Normal 0-40 [facility]; [facility] Work Phone: Comment on above: PATIENT WAS FASTINGP ERFORMED BY: CB [facility] Jtsjjn3010 [address] RoadDublin [place] [id number] AST [Catalytic activity/Vol] 12 U/L Normal 0-40 [facility]; [facility] Work Phone: Comment on above: PATIENT WAS FASTINGP ERFORMED BY: CB [facility] Mhbket7181 [address] RoadD[address] [place] [id number] Bilirubin [Mass/Vol] 0.6 mg/dL Normal 0.0-1.2 [facility]; [facility] Work Phone: Comment on above: PATIENT WAS FASTINGP ERFORMED BY: CB [facility] Jsnssl7240 [address] RoadDublin [place] [id number] Calcium [Mass/Vol] 9.4 mg/dL Normal 8.6-10.2 [facility] Internal [facility]; [facility] Work Phone: Comment on above: PATIENT WAS FASTINGP ERFORMED BY: CB [facility] Mgskcp7664 [address] RoadDublin [place] [id number] Chloride [Moles/Vol] 100 mmol/L Normal 96-[address] [facility] rehensive Internal Medicine; [facility] Work Phone: Comment on above: PATIENT WAS FASTINGP ERFORMED BY: CB [facility] Sanxql6850 [address] RoadDublin [place] [id number] CO2 [Moles/Vol] 26 mmol/L Normal 20-29 [facility] Internal Medicine; [facility] Work Phone: Comment on above: PATIENT WAS FASTINGP ERFORMED BY: CB [facility] Qnepky5184 [address] RoadDuin [place] [id number] Creatinine [Mass/Vol] 0.73 mg/dL Abnormal 0.76-1.27 [facility]; [facility] Work Phone: Comment on above: PATIENT WAS FASTINGP ERFORMED BY: CB [facility] Qrpoas6797 [address] RoadDuin [place] [id number] GFR/1.73 sq M predicted among blacks CKD-EPI (S/P/Bld) [Vol rate/Area] 102 mL/min/1.73 Normal [facility]; [facility] Work Phone: Comment on above: PATIENT WAS FASTINGP ERFORMED BY: CB [facility] Tjkkza1274 [address] RoadDublin [place] [id number] GFR/1.73 sq M predicted among non-blacks CKD-EPI (S/P/Bld) [Vol rate/Area] 88 mL/min/1.73 Normal [facility]; [facility] Work Phone: Comment on above: PATIENT WAS FASTINGP ERFORMED BY: CB [facility] Xjhjil5731 [address] RoadDublin [place] [id number] Globulin (S) [Mass/Vol] 2.7 g/dL Normal 1.5-4.5 [facility] Internal Medicine; [facility] Work Phone: Comment on above: PATIENT WAS FASTINGP ERFORMED BY: BRIGITTE DaysiS[facility] Flcjcy6469 [facility] [id number] Glucose [Mass/Vol] 92 mg/dL Normal 65-99 [facility] Internal Medicine; [facility] Work Phone: Comment on above: PATIENT WAS FASTINGP ERFORMED BY: BRIGITTE LabCovenant Medical Center6370 [facility] [id number] Potassium [Moles/Vol] 4.3 mmol/L Normal 3.5-5.2 [facility]; [facility] Work Phone: Comment on above: PATIENT WAS FASTINGP ERFORMED BY: BRIGITTE [facility] Ffzkcu5685 [facility] [id number] Protein [Mass/Vol] 6.7 g/dL Normal 6.0-8.5 [facility] Internal [facility]; [facility] Work Phone: Comment on above: PATIENT WAS FASTINGP ERFORMED BY: BRIGITTE LabS[facility] Wmplez1717 [facility] [id number] Sodium [Moles/Vol] 139 mmol/L Normal 134-144 [facility] Internal Medicine; [facility] Work Phone: Comment on above: PATIENT WAS FASTINGP ERFORMED BY: LabCovenant Medical Center6370 [facility] [id number] Urea nitrogen [Mass/Vol] 15 mg/dL Normal 8-27 [facility]; [facility] Work Phone: Comment on above: PATIENT WAS FASTINGP ERFORMED BY: BRIGITTE LabS[facility] Fpknrm7379 [facility] [id number] Urea nitrogen/Creatinine [Mass ratio] 21 mg/mg Normal 10-24 [facility]; [facility] Work Phone: Comment on above: PATIENT WAS FASTINGP ERFORMED BY: BRIGITTE LabS[facility] Xsjutt5523 [address] RoadDublin [place] [id number] URINALYSIS, W/ MICRO ([id number]) Ordered By: Inductor Tester on 04-28-2020 Appearance (U) Clear Normal Comprehens milka [facility]; [facility] Work Phone: Comment on above: PATIENT WAS FASTINGP ERFORMED BY: BRIGITTE LabLivrp Yiueko0180 [address] RoadDublin [place] [id number] Bilirubin Ql (U) Negative Normal Comprehe nsive Internal Medicine; [facility] Work Phone: Comment on above: PATIENT WAS FASTINGP ERFORMED BY: BRIGITTE [facility] Rksotj1277 [address] RoadDublin [place] [id number] Bilirubin Ql (U) Negative Normal Comprehe nsive Internal Medicine; [facility] Work Phone: Comment on above: PATIENT WAS FASTINGP ERFORMED BY: BRIGITTE LabSilvio ChaneyUaqdor7670 [address] RoadDublin [place] [id number] Color (U) Yellow Normal [facility]; [facility] Work Phone: Comment on above: PATIENT WAS FASTINGP ERFORMED BY: BRIGITTE LabCoelsa ChaneyHgrbvo1952 [address] RoadDublin [place] [id number] Glucose Ql (U) Negative Normal Comprehens [facility]; [facility] Work Phone: Comment on above: PATIENT WAS FASTINGP ERFORMED BY: BRIGITTE LabSilvio ChaneyFdurdp6405 [address] RoadDublin [place] [id number] Glucose Ql (U) Negative Normal Comprehens [facility]; [facility] Work Phone: Comment on above: PATIENT WAS FASTINGP ERFORMED BY: BRIGITTE [facility] Xrnail5268 [address] RoadDublin [place] [id number] Hemoglobin Ql (U) Negative Normal Compreh ensive Internal Medicine; [facility] Work Phone: Comment on above: PATIENT WAS FASTINGP ERFORMED BY: BRIGITTE [facility] Veuhhh4163 [address] RoadD[address] [place] [id number] Hemoglobin Ql (U) Negative Normal Compreh ensive Internal Medicine; [facility] Work Phone: Comment on above: PATIENT WAS FASTINGP ERFORMED BY: BRIGITTE LabCoelsa Jaippc4897 [address] RoadDublin [place] [id number] Ketones Ql (U) Negative Normal Comprehens [facility]; [facility] Work Phone: Comment on above: PATIENT WAS FASTINGP ERFORMED BY: BRIGITTE [facility] Ztlhsg5993 [address] RoadD[address] [place] [id number] Ketones Ql (U) Negative Normal Comprehens [facility]; [facility] Work Phone: Comment on above: PATIENT WAS FASTINGP ERFORMED BY: BRIGITTE [facility] Ewxnql7887 [address] RoadDublin [place] [id number] Leukocyte esterase Test strip Ql (U) Negative Normal [facility]; [facility] Work Phone: Comment on above: PATIENT WAS FASTINGP ERFORMED BY: BRIGITTE Chaneylin6370 [address] RoadD[address] [place] [id number] Leukocyte esterase Test strip Ql (U) Negative Normal [facility]; [facility] Work Phone: Comment on above: PATIENT WAS FASTINGP ERFORMED BY: BRIGITTE Chaneylin6370 [address] RoadD[address] [place] [id number] Microscopic observation LM Nom (Urine sed) See below: Normal [facility]; [facility] Work Phone: Comment on above: Microscopic was flavia cated and was performed. PATIENT WAS FASTINGP ERFORMED BY: BRIGITTE [facility] Wjvbkz3872 [address] RoadDublin [place] [id number] Nitrite Ql (U) Negative Normal Comprehens [facility]; [facility] Work Phone: Comment on above: PATIENT WAS FASTINGP ERFORMED BY: BRIGITTE [facility] Knobcq0430 [address] RoadDublin [place] [id number] Nitrite Ql (U) Negative Normal Comprehens [facility]; [facility] Work Phone: Comment on above: PATIENT WAS FASTINGP ERFORMED BY: BRIGITTE [facility] Qbephd5499 [address] RoadDublin [place] [id number] pH (U) 5.0 [pH] Normal 5.0-7.5 [facility]; [facility] Work Phone: Comment on above: PATIENT WAS FASTINGP ERFORMED BY: BRIGITTE [facility] Nzmzxv6631 [address] RoadDublin [place] [id number] Protein Ql (U) 1+ Abnormal Comprehens [facility]; [facility] Work Phone: Comment on above: PATIENT WAS FASTINGP ERFORMED BY: BRIGITTE [facility] Tmobcy4187 [address] RoadDublin [place] [id number] Specific gravity (U) [Rel density] 1.019 1 Normal 1.005-1.03 0 [facility]; [facility] Work Phone: Comment on above: PATIENT WAS FASTINGP ERFORMED BY: BRIGITTE [facility] Npjmly4889 [address] RoadD[address] [place] [id number] Urobilinogen (U) [Mass/Vol] 0.2 mg/dL Normal 0.2-1.0 [facility]; [facility] Work Phone: Comment on above: PATIENT WAS FASTINGP ERFORMED BY: BRIGITTE [facility] Tiyijn2105 [address] RoadDublin [place] [id number] Urobilinogen Test strip (U) [Mass/Vol] 0.2 mg/dL Normal 0.2-1.0 Comprehensi Internal Medicine; [facility] Work Phone: Comment on above: PATIENT WAS FASTINGP ERFORMED BY: BRIGITTE [facility] Ofiiyy3680 [address] [facility] Hospitalblin [place] [id number] Vitamin B-12 (cyanocobalamin ) ([id number])Ordered By: Inductor Tester on 04-28-2020 Cobalamin (Vitamin B12) [Mass/Vol] 1341 pg/mL Abnormal 232-1245 [facility]; [facility] Work Phone: Comment on above: PATIENT WAS FASTINGP ERFORMED BY: BRIGITTE [facility] Lvieha1518 [address] RoadDublin [place] [id number] C-Reactive Protein ([id number])Or dered By: Inductor Tester on 03-18-2020 CRP [Mass/Vol] 9 mg/L Normal 0-10 Comprehens [facility] Work Phone: Comment on above: PATIENT NOT FASTINGP ERFORMED BY: BRIGITTE LabSilvio Costa6370 [facility] [id number] CBC W/AUTO DIFF WBC ([id number])O rdered By: Inductor Tester on 03-18-2020 Basophils (Bld) [#/Vol] 0.0 {x10E3/uL} Normal 0.0-0.2 [facility] Work Phone: Comment on above: PATIENT NOT FASTINGP ERFORMED BY: BRIGITTE [facility] Ltlpzh5844 [facility] [id number] Basophils (Bld) [#/Vol] 0.0 10*3/uL Normal 0.0-0.2 [facility]; [facility] Work Phone: Comment on above: PATIENT NOT FASTINGP ERFORMED BY: BRIGITTE LabSilvio ChaneySlxeev1551 [facility] [id number] Basophils/100 WBC (Bld) 0 % Normal [facility] Work Phone: Comment on above: PATIENT NOT FASTINGP ERFORMED BY: BRIGITTE LabCoelsa Rdaqnb0761 [facility] [id number] Eosinophils (Bld) [#/Vol] 0.1 {x10E3/uL} Normal 0.0-0.4 [facility] Work Phone: Comment on above: PATIENT NOT FASTINGP ERFORMED BY: CB [facility] Crxkza3330 [facility] [id number] Eosinophils (Bld) [#/Vol] 0.1 10*3/uL Normal 0.0-0.4 [facility]; [facility] Work Phone: Comment on above: PATIENT NOT FASTINGP ERFORMED BY: CB [facility] Ruxhzv2331 [facility] [id number] Eosinophils/100 WBC (Bld) 2 % Normal [facility] Work Phone: Comment on above: PATIENT NOT FASTINGP ERFORMED BY: BRIGITTE [facility] Xmrsmn1562 [facility] [id number] Erythrocyte distribution width (RBC) [Ratio] 12.1 % Normal 11.6-15.4 [facility] Work Phone: Comment on above: PATIENT NOT FASTINGP ERFORMED BY: BRIGITTE Raúl Jcuuku5668 [facility] [id number] Hematocrit (Bld) [Volume fraction] 40.6 % Normal 37.5-51.0 [facility] Work Phone: Comment on above: PATIENT NOT FASTINGP ERFORMED BY: BRIGITTE DaysiS[facility] Unbtey0398 [facility] [id number] Hemoglobin (Bld) [Mass/Vol] 13.9 g/dL Normal 13.0-17.7 [facility] Work Phone: Comment on above: PATIENT NOT FASTINGP ERFORMED BY: BRIGITTE [facility]iS[facility] Zzfkuc2914 [facility] [id number] Immature granulocytes (Bld) [#/Vol] 0.0 {x10E3/uL} Normal 0.0-0.1 [facility] Work Phone: Comment on above: PATIENT NOT FASTINGP ERFORMED BY: BRIGITTE Raúl Repcri9077 [facility] [id number] Immature granulocytes (Bld) [#/Vol] 0.0 10*3/uL Normal 0.0-0.1 [facility]; [facility] Work Phone: Comment on above: PATIENT NOT FASTINGP ERFORMED BY: [facility] [id number] Immature granulocytes/100 WBC (Bld) 0 % Normal [facility] Work Phone: Comment on above: PATIENT NOT FASTINGP ERFORMED BY: [facility] Okevrm7182 [facility] [id number] Lymphocytes (Bld) [#/Vol] 1.3 {x10E3/uL} Normal 0.7-3.1 [facility] Work Phone: Comment on above: PATIENT NOT FASTINGP ERFORMED BY: [facility] Xypvtq5522 Kerr RoadDublin [place] [id number] Lymphocytes (Bld) [#/Vol] 1.3 10*3/uL Normal 0.7-3.1 [facility]; [facility] Work Phone: Comment on above: PATIENT NOT FASTINGP ERFORMED BY: BRIGITTE Raúl Kkmsxt7060 Kerr Roadblin [place] [id number] Lymphocytes/100 WBC (Bld) 15 % Normal [facility] Work Phone: Comment on above: PATIENT NOT FASTINGP ERFORMED BY: BRIGITTE [facility] Zoaijx9876 [address] [facility] [place] [id number] MCH (RBC) [Entitic mass] 30.2 pg Normal 26.6-33.0 [facility] Internal Medicine Work Phone: Comment on above: PATIENT NOT FASTINGP ERFORMED BY: [facility] Ghmoyn0755 [address] [facility]in [place] [id number] MCHC (RBC) [Mass/Vol] 34.2 g/dL Normal 31.5-35.7 [facility] Internal Medicine Work Phone: Comment on above: PATIENT NOT FASTINGP ERFORMED BY: Raúl Cacxwu4[address] [facility] Hospitalbl[facility] [place] [id number] MCV (RBC) [Entitic vol] 88 fL Normal 79-97 [facility] Internal Medicine Work Phone: Comment on above: PATIENT NOT FASTINGP ERFORMED BY: [facility] Uuuihr3899 [address] [facility] [place] [id number] Monocytes (Bld) [#/Vol] 0.6 {x10E3/uL} Normal 0.1-0.9 [facility] Work Phone: Comment on above: PATIENT NOT FASTINGP ERFORMED BY: LabS[facility] Ksutuq7375 Kerr RoadDublin [place] [id number] Monocytes (Bld) [#/Vol] 0.6 10*3/uL Normal 0.1-0.9 [facility]; [facility] Work Phone: Comment on above: PATIENT NOT FASTINGP ERFORMED BY: BRIGITTE [facility] Pixbgy6375 Kerr RoadDublin [place] [id number] Monocytes/100 WBC (Bld) 8 % Normal [facility] Work Phone: Comment on above: PATIENT NOT FASTINGP ERFORMED BY: CB [facility] Jqrycv2715 Kerr RoadDublin [place] [id number] Neutrophils (Bld) [#/Vol] 6.3 {x10E3/uL} Normal 1.4-7.0 [facility] Work Phone: Comment on above: PATIENT NOT FASTINGP ERFORMED BY: CB [facility] Aosjik1411 Kerr RoadDublin [place] [id number] Neutrophils (Bld) [#/Vol] 6.3 10*3/uL Normal 1.4-7.0 [facility]; [facility] Work Phone: Comment on above: PATIENT NOT FASTINGP ERFORMED BY: BRIGITTE [facility] Ucqmif7503 Kerr RoadDublin [place] [id number] Neutrophils/100 WBC (Bld) 75 % Normal [facility] Work Phone: Comment on above: PATIENT NOT FASTINGP ERFORMED BY: CB [facility] Kudxej9004 Kerr RoadDublin [place] [id number] Platelets (Bld) [#/Vol] 254 {x10E3/uL} Normal 150-450 [facility] Work Phone: Comment on above: PATIENT NOT FASTINGP ERFORMED BY: CB [facility] Kmpuxa8172 [address] RoadDublin [place] [id number] Platelets (Bld) [#/Vol] 254 10*3/uL Normal 150-450 [facility]; [facility] Work Phone: Comment on above: PATIENT NOT FASTINGP ERFORMED BY: CB [facility] Rsupxr7248 Kerr RoadDublin [place] [id number] RBC (Bld) [#/Vol] 4.60 {x10E6/uL} Normal 4.14-5.80 [facility] Internal Medicine Work Phone: Comment on above: PATIENT NOT FASTINGP ERFORMED BY: Lab[facility] Ejpjiq2673 [address] [facility]in [place] [id number] RBC (Bld) [#/Vol] 4.60 10*6/uL Normal 4.14-5.80 [facility] Internal Medicine; [facility] Work Phone: Comment on above: PATIENT NOT FASTINGP ERFORMED BY: LabS[facility] Abwdme7450 [address] [facility] [id number] WBC (Bld) [#/Vol] 8.3 {x10E3/uL} Normal 3.4-10.8 [facility] Internal Medicine Work Phone: Comment on above: PATIENT NOT FASTINGP ERFORMED BY: LabS[facility] Dzmxsn0519 [facility] [id number] WBC (Bld) [#/Vol] 8.3 10*3/uL Normal 3.4-10.8 [facility] Internal Medicine; [facility] Work Phone: Comment on above: PATIENT NOT FASTINGP ERFORMED BY: LabCovenant Medical Center6370 [facility] [id number] ESR-F (SED RATE ERYTHROCYTE - MALE) ([id number])Ordered By: Inductor Tester on 03-18-2020 ESR (Bld) [Velocity] 18 mm/h Normal 0-30 [facility] Internal Medicine Work Phone: Comment on above: PATIENT NOT FASTINGP ERFORMED BY: LabCovenant [facility] Center6370 [facility] [id number] METABOLIC PANEL, COMPREHENSI VE (07124)Ordered By: Inductor Tester on 03-18-2020 Albumin [Mass/Vol] 4.3 g/dL Normal 3.7-4.7 [facility] Internal Medicine Work Phone: Comment on above: PATIENT NOT FASTINGP ERFORMED BY: [facility] Lzjori2400 [facility] [id number] Albumin/Globulin [Mass ratio] 1.8 {ratio} Normal 1.2-2.2 [facility] Internal Medicine Work Phone: Comment on above: PATIENT NOT FASTINGP ERFORMED BY: CB [facility] Cvivsl4555 Kerr RoadDublin [place] [id number] ALP [Catalytic activity/Vol] 60 [iU]/L Normal 39-117 [facility] Work Phone: Comment on above: PATIENT NOT FASTINGP ERFORMED BY: CB [facility] Zatseh7397 Kerr RoadDublin [place] [id number] ALP [Catalytic activity/Vol] 60 U/L Normal 39-117 [facility]; [facility] Work Phone: Comment on above: PATIENT NOT FASTINGP ERFORMED BY: BRIGITTE [facility] Ovfdkp8622 Kerr RoadDublin [place] [id number] ALT [Catalytic activity/Vol] 14 [iU]/L Normal 0-44 [facility] Work Phone: Comment on above: PATIENT NOT FASTINGP ERFORMED BY: BRIGITTE [facility] Ajgawi5472 [address] RoadDublin [place] [id number] ALT [Catalytic activity/Vol] 14 U/L Normal 0-44 [facility]; [facility] Work Phone: Comment on above: PATIENT NOT FASTINGP ERFORMED BY: BRIGITTE [facility] Kaxrrc6494 [address] RoadDublin [place] [id number] AST [Catalytic activity/Vol] 12 [iU]/L Normal 0-40 [facility] Work Phone: Comment on above: PATIENT NOT FASTINGP ERFORMED BY: BRIGITTE [facility] Sjxfoj2403 Kerr RoadDublin [place] [id number] AST [Catalytic activity/Vol] 12 U/L Normal 0-40 [facility]; [facility] Work Phone: Comment on above: PATIENT NOT FASTINGP ERFORMED BY: CB [facility] Wmndou5526 [address] RoadDublin [place] [id number] Bilirubin [Mass/Vol] 0.5 mg/dL Normal 0.0-1.2 [facility] Work Phone: Comment on above: PATIENT NOT FASTINGP ERFORMED BY: CB [facility] Rrcxgu0448 Kerr RoadDublin [place] [id number] Calcium [Mass/Vol] 9.2 mg/dL Normal 8.6-10.2 [facility] Internal Medicine Work Phone: Comment on above: PATIENT NOT FASTINGP ERFORMED BY: BRIGITTE [facility] Lsvpwl8310 [address] RoadDublin [place] [id number] Chloride [Moles/Vol] 99 mmol/L Normal 96-106 [facility]ensive [facility] Work Phone: Comment on above: PATIENT NOT FASTINGP ERFORMED BY: CB [facility] Pmymrf2902 Kerr RoadIredell Memorial Hospitalin [place] [id number] CO2 [Moles/Vol] 26 mmol/L Normal 20-29 [facility] Internal Medicine Work Phone: Comment on above: PATIENT NOT FASTINGP ERFORMED BY: BRIGITTE [facility] Ezyobj3515 Kerr RoadNovant Health Clemmons [facility] [id number] Creatinine [Mass/Vol] 0.79 mg/dL Normal 0.76-1.27 [facility] Internal Medicine Work Phone: Comment on above: PATIENT NOT FASTINGP ERFORMED BY: CB [facility] Gueemc1922 Kerr RoadIredell Memorial Hospitalin [place] [id number] GFR/1.73 sq M predicted among blacks CKD-EPI (S/P/Bld) [Vol rate/Area] 99 mL/min/1.73 Normal [facility] Work Phone: Comment on above: PATIENT NOT FASTINGP ERFORMED BY: CB [facility] Juybnq6279 Kerr RoadIredell Memorial Hospitalin [place] [id number] GFR/1.73 sq M predicted among non-blacks CKD-EPI (S/P/Bld) [Vol rate/Area] 85 mL/min/1.73 Normal [facility] Work Phone: Comment on above: PATIENT NOT FASTINGP ERFORMED BY: CB [facility] Qygzik6919 Kerr RoadIredell Memorial Hospitalin [place] [id number] Globulin (S) [Mass/Vol] 2.4 g/dL Normal 1.5-4.5 [facility] Work Phone: Comment on above: PATIENT NOT FASTINGP ERFORMED BY: CB [facility] Rhumhv3582 Kerr RoadDublin [place] [id number] Glucose [Mass/Vol] 88 mg/dL Normal 65-99 [facility] Internal Medicine Work Phone: Comment on above: PATIENT NOT FASTINGP ERFORMED BY: CB [facility] Ryksob4329 [address] RoadDublin [place] [id number] Potassium [Moles/Vol] 4.1 mmol/L Normal 3.5-5.2 [facility] Internal Medicine Work Phone: Comment on above: PATIENT NOT FASTINGP ERFORMED BY: BRIGITTE [facility] Flmofy0270 [address] RoadDublin [place] [id number] Protein [Mass/Vol] 6.7 g/dL Normal 6.0-8.5 [facility] Internal Medicine Work Phone: Comment on above: PATIENT NOT FASTINGP ERFORMED BY: BRIGITTE [facility] Lwlpoc6314 Kerr RoadDublin [place] [id number] Sodium [Moles/Vol] 140 mmol/L Normal 134-144 [facility] Internal Medicine Work Phone: Comment on above: PATIENT NOT FASTINGP ERFORMED BY: BRIGITTE [facility] Lonlcu6499 Kerr RoadDublin [place] [id number] Urea nitrogen [Mass/Vol] 14 mg/dL Normal 8-27 [facility] Internal Medicine Work Phone: Comment on above: PATIENT NOT FASTINGP ERFORMED BY: BRIGITTE [facility] Xjrhvr4519 [address] RoadDublin [place] [id number] Urea nitrogen/Creatinine [Mass ratio] 18 mg/mg Normal 10-24 [facility] Internal Medicine Work Phone: Comment on above: PATIENT NOT FASTINGP ERFORMED BY: CB [facility] Kiijim9643 Kerr RoadDublin [place] [id number] TSH (16434)Ordered By: Sami Terry on 03-18-2020 TSH Qn 1.990 {uIU/mL} Normal 0.450-4.50 0 [facility] Internal Medicine Work Phone: Comment on above: PATIENT NOT FASTINGP ERFORMED BY: BRIGITTE [facility] Baqdco1645 [address] RoadDublin [place] [id number] VITAMIN B12 AND FOLATES (826 07)Ordered By: Inductor Tester on 03-18-2020 Cobalamin (Vitamin B12) [Mass/Vol] 291 pg/mL Normal 232-1245 [facility] Work Phone: Comment on above: PATIENT NOT FASTINGP ERFORMED BY: BRIGITTE [facility] Cdnqrs9828 Kerr RoadDublin [place] [id number] Folate [Mass/Vol] 12.5 ng/mL Normal Compreh ensive Internal Medicine Work Phone: Comment on above: A serum folate rita ntration of less than 3.1 ng/mL isconsidered to represent clinical deficiency. PATIENT NOT FASTINGP ERFORMED BY: BRIGITTE [facility] Ubhcib9678 [address] [facility] Hospitalbl[facility] [place] [id number] ANTICARDIOLIPIN IgG/IgM 1618 02 ([id number])Ordered By: Inductor Tester on 11-26-2019 Cardiolipin IgG IA Qn (S) <9 Normal 0-14 [facility] Work Phone: Comment on above: Negative: <15 Indete rminate: 15 - 20 Low-Med Positive: >20 - 80 High Positive: >80 PATIENT NOT FASTINGP ERFORMED BY: [employer]Y [employer] Qza2230 [employer] [address] [id number] BY: [facility] [id number] BY: BRIGITTE [facility] Rchdeh8195 [address] [facility] [id number] Cardiolipin IgM IA Qn (S) <9 Normal 0-12 [facility] Work Phone: Comment on above: Negative: <13 Indete rminate: 13 - 20 Low-Med Positive: >20 - 80 High Positive: >80 PATIENT NOT FASTINGP ERFORMED BY: [employer] Spp8368 [employer] [address] [id number] BY: [facility] [id number] BY: [facility] Jrlvjp8681 [facility] [id number] BETA-2 GLYCOPROT I AB [id number] ([id number])Ordered By: Inductor Tester on 11-26-2019 Beta 2 glycoprotein 1 IgA Qn (S) <9 Normal 0-25 [facility] Work Phone: Comment on above: The reference interv al reflects a 3SD or 99th percentile interval,which is thought to represent a potentially clinically significantresult in accordance with the International Consensus Statement onthe classification criteria for definitive antiphospholipid syndrome(APS). J Thromb Haem 2006;4:295-306. PATIENT NOT FASTINGP ERFORMED BY: [employer] Vhc7255 [employer] [address] [id number] BY: [employer] [address] [id number] BY: [facility]6370 [facility] [id number] Beta 2 glycoprotein 1 IgG Qn (S) <9 Normal 0-20 [facility] Work Phone: Comment on above: The reference interv al reflects a 3SD or 99th percentile interval,which is thought to represent a potentially clinically significantresult in accordance with the International Consensus Statement onthe classification criteria for definitive antiphospholipid syndrome(APS). J Thromb Haem 2006;4:295-306. PATIENT NOT FASTINGP ERFORMED BY: [employer]Y [employer] Vdn9500 [employer] [address] [id number] BY: [facility] Ykrszoawyf[address] [id number] BY: [facility] MedicalKessler Institute for RehabilitationOtgsgu8477 [facility] [id number] Beta 2 glycoprotein 1 IgM Qn (S) <9 Normal 0-32 [facility] Work Phone: Comment on above: The reference interv al reflects a 3SD or 99th percentile interval,which is thought to represent a potentially clinically significantresult in accordance with the International Consensus Statement onthe classification criteria for definitive antiphospholipid syndrome(APS). J Thromb Haem 2006;4:295-306. PATIENT NOT FASTINGP ERFORMED BY: [employer] Uvf1982 [employer] [address] [id number] BY: CircuitLabton1447 [facility] [id number] BY: [facility] Fxjhpu5306 [facility] [id number] [place] PROF [id number] ([id number])Ordered By: Inductor Tester on 11-26-2019 aPTT Coag (Bld) [Time] 34.2 {sec} Abnormal Co [facility] medicineensive Internal [facility] Work Phone: Comment on above: This test has not be en validated for monitoringunfractionated heparin therapy. aPTT-based therapeuticranges for unfractionated heparin therapy have not beenestablished. Consider ordering Heparin anti-Xa(unfractionated).Reference Range:18 years and older: 22.9 - 30.2 PATIENT NOT FASTINGP ERFORMED BY: Zedmo [employer] Ghy1460 [employer] [place] [address]rosPh[facility] [id number] BY: CircuitLabton1447 [facility] [id number] BY: [facility] Fdxhcy0729 [facility] [id number] aPTT Coag (Bld) [Time] 34.2 s Abnormal Co [facility] medicineensive [facility]; [facility] Work Phone: Comment on above: This test has not be en validated for monitoringunfractionated heparin therapy. aPTT-based therapeuticranges for unfractionated heparin therapy have not beenestablished. Consider ordering Heparin anti-Xa(unfractionated).Reference Range:18 years and older: 22.9 - 30.2 PATIENT NOT FASTINGP ERFORMED BY: [employer] Iui2155 [employer] [place] [address]Ne[facility]rosPh[facility] [id number] BY: CircuitLabton1447 [facility] [id number] BY: [facility] MedicalKessler Institute for RehabilitationDqpcls9513 [facility] [id number] [place] PROF 60109 ([id number]) 126 % Normal [facility] Work Phone: Comment on above: Reference Range:50 - 200This test was developed and its performance characteristicsdetermined by [employer]. It has not been cleared or approvedby the Food and Drug Administration. PATIENT NOT FASTINGP ERFORMED BY: [employer] Rle3780 [employer] [address] [id number] BY: [address] [id number] BY: [facility] Bxcxze7639 [address] [facility] [id number] [place] PROF 28061 (77427) 153 % Normal [facility] Work Phone: Comment on above: Reference Range:57 - 163 PATIENT NOT FASTINGP ERFORMED BY: [employer] Npc9057 [employer] [address] [id number] BY: [address] [id number] BY: [facility] Aiqlxu8473 [facility] [id number] [place] PROF 59558 (61440) 116 % Normal [facility] Work Phone: Comment on above: Reference Range:50 - 150Results of this test are for research purposes only perthe assay manufacturing engineer automotive. The performance characteristics ofthis assay have not been established. The result should notbe used as a diagnostic procedure without confirmation ofthe diagnosis by another medically established diagnosticproduct or procedure. PATIENT NOT FASTINGP ERFORMED BY: [employer]Y [employer] Blp5931 [employer] [address] [id number] BY: [address] [id number] BY: [facility] Avqjox1288 [facility] [id number] [place] PROF 39812 (26567) 0.9 {ratio} Normal [facility] Work Phone: Comment on above: Reference Range:0.6 - 5.0 PATIENT NOT FASTINGP ERFORMED BY: [employer]Y [employer] Whf3607 [place] S[address] [id number] BY: [address]lington [place] [id number] BY: BRIGITTE [facility] Dglzvk1078 [address] [facility]in [place] [id number] [place] PROF 02398 (74079) 99 % Normal [facility] Work Phone: Comment on above: Reference Range:50 - 200 PATIENT NOT FASTINGP ERFORMED BY: UAvvenuoterFit&Color Tyj[address] [id number] BY: LabS[facility] Center1447 [facility] [id number] BY: BRIGITTE LabArg[employer]rapeutics Eloemq7582 [facility] [id number] [place] PROF 72330 (16599) 34.2 {sec} Abnormal [facility]; [facility] Work Phone: PT (PROTHROMBIN TIME) ([id number] )Ordered By: Inductor Tester on 11-21-2019 INR Coag (PPP) [Relative time] 1.0 {INR} Normal 0.8-1.2 [facility] Work Phone: Comment on above: Reference interval i s for non-anticoagulated patients. . Suggested INR therapeutic range for Vitamin K antagonist therapy: Standard Dose (moderate intensity therapeutic range): 2.0 - 3.0 Higher intensity therapeutic range 2.5 - 3.5 PATIENT NOT FASTINGP ERFORMED BY: LabArgos Therapeutics Zsvyhu3947 [address] Agile Edge TechnologiesNovant Health Clemmons Medical Center [id number] PT Coag (PPP) [Time] 10.7 {sec} Normal 9.1-12.0 Comp rehensive Internal Medicine Work Phone: Comment on above: PATIENT NOT FASTINGP ERFORMED BY: LabArgos Therapeutics Azeuej2851 Kerr ITegrisin [place] [id number] PT Coag (PPP) [Time] 10.7 s Normal 9.1-12.0 Comp rehensive Internal Medicine; [facility] Work Phone: Comment on above: PATIENT NOT FASTINGP ERFORMED BY: [facility] Mbrjjh5409 [address] [facility] [place] [id number] PTT (ACTIVATED PARTIAL THROM BOPLASTIN TIME) (12011)Ordered By: Inductor Tester on 11-21-2019 aPTT Coag (PPP) [Time] 34 {sec} Abnormal 24-33 [facility] Internal [facility] Work Phone: Comment on above: This test has not be en validated for monitoring unfractionated heparintherapy. aPTT-based therapeutic ranges for unfractionated heparintherapy have not been established. For general guidelines onHeparin monitoring, refer to the [facility] Directory of Services. PATIENT NOT FASTINGP ERFORMED BY: [facility] MedicalHeather [place] 4796870 [facility] [id number] aPTT Coag (PPP) [Time] 34 s Abnormal 24-33 [facility] Internal [facility]; [facility] Internal Medicine Work Phone: Comment on above: This test has not be en validated for monitoring unfractionated heparintherapy. aPTT-based therapeutic ranges for unfractionated heparintherapy have not been established. For general guidelines onHeparin monitoring, refer to the [employer] Directory of Services. PATIENT NOT FASTINGP ERFORMED BY: [facility] MedicalHeather [place] 4796870 [facility] [id number] C-REACT PROT HIGH SENS(hsCRP ) (33021)Ordered By: Inductor Tester on 10-24-2019 CRP High sensitivity method [Mass/Vol] 2.98 mg/L Normal 0.00-3.00 [facility] Internal Medicine Work Phone: Comment on above: Relative Risk for Fu ture Cardiovascular Event Low <1.00 Average 1.00 - 3.00 High >3.00 PATIENT NOT FASTINGP ERFORMED BY: [facility] MedicalKessler Institute for RehabilitationJkwstj4600 [facility] [id number] PTT (ACTIVATED PARTIAL THROM BOPLASTIN TIME) (26424)Ordered By: Inductor Tester on 10-24-2019 aPTT Coag (PPP) [Time] 34 {sec} Abnormal 24-33 [facility] Internal [facility] Work Phone: Comment on above: This test has not be en validated for monitoring unfractionated heparintherapy. aPTT-based therapeutic ranges for unfractionated heparintherapy have not been established. For general guidelines onHeparin monitoring, refer to the [facility] Directory of Services. PATIENT NOT FASTINGP ERFORMED BY: [facility]6370 [facility] [id number] aPTT Coag (PPP) [Time] 34 s Abnormal 24-33 Co [facility] Internal [facility]; [facility] Work Phone: Comment on above: This test has not be en validated for monitoring unfractionated heparintherapy. aPTT-based therapeutic ranges for unfractionated heparintherapy have not been established. For general guidelines onHeparin monitoring, refer to the [facility] Directory of Services. PATIENT NOT FASTINGP ERFORMED BY: [facility]6370 [facility] [id number] CBC, PLATELETS & MANUAL DIFF ([id number])Ordered By: Inductor Tester on 10-09-2019 Basophils (Bld) [#/Vol] 0.0 {x10E3/uL} Normal 0.0-0.2 [facility] Work Phone: Comment on above: PATIENT WAS FASTINGP ERFORMED BY: [place] 8149670 [facility] [id number] Basophils (Bld) [#/Vol] 0.0 10*3/uL Normal 0.0-0.2 [facility]; [facility] Work Phone: Comment on above: PATIENT WAS FASTINGP ERFORMED BY: [facility]6370 [facility] [id number] Basophils/100 WBC (Bld) 0 % Normal [facility] Work Phone: Comment on above: PATIENT WAS FASTINGP ERFORMED BY: [facility]6370 [facility] [id number] Eosinophils (Bld) [#/Vol] 0.1 {x10E3/uL} Normal 0.0-0.4 [facility] Work Phone: Comment on above: PATIENT WAS FASTINGP ERFORMED BY: [facility]6370 [facility] [id number] Eosinophils (Bld) [#/Vol] 0.1 10*3/uL Normal 0.0-0.4 [facility]; [facility] Work Phone: Comment on above: PATIENT WAS FASTINGP ERFORMED BY: BRIGITTE Costa6370 [address] [facility] [place] [id number] Eosinophils/100 WBC (Bld) 1 % Normal [facility] Work Phone: Comment on above: PATIENT WAS FASTINGP ERFORMED BY: [facility] Meieqw7971 [facility] [id number] Erythrocyte distribution width (RBC) [Ratio] 12.2 % Normal 11.6-15.4 Comprehensive Internal Medicine Work Phone: Comment on above: PATIENT WAS FASTINGP ERFORMED BY: Raúl Gzxjwv3140 [facility] [id number] Hematocrit (Bld) [Volume fraction] 40.5 % Normal 37.5-51.0 [facility] Work Phone: Comment on above: PATIENT WAS FASTINGP ERFORMED BY: [facility] Jbzrjr8685 [facility] [id number] Hemoglobin (Bld) [Mass/Vol] 13.1 g/dL Normal 13.0-17.7 [facility] Work Phone: Comment on above: PATIENT WAS FASTINGP ERFORMED BY: BRIGITTE Olsen Pgxizv1597 [facility] [id number] Immature granulocytes (Bld) [#/Vol] 0.0 {x10E3/uL} Normal 0.0-0.1 [facility] Work Phone: Comment on above: PATIENT WAS FASTINGP ERFORMED BY: [facility] Pjhmsy2392 [facility] [place] [id number] Immature granulocytes (Bld) [#/Vol] 0.0 10*3/uL Normal 0.0-0.1 [facility]; [facility] Work Phone: Comment on above: PATIENT WAS FASTINGP ERFORMED BY: [facility] Bojqto2961 [facility] [id number] Immature granulocytes/100 WBC (Bld) 0 % Normal [facility] Work Phone: Comment on above: PATIENT WAS FASTINGP ERFORMED BY: LabC[facility] Center6[address] Kerr RoadDublin [place] [id number] Lymphocytes (Bld) [#/Vol] 1.7 {x10E3/uL} Normal 0.7-3.1 [facility] Work Phone: Comment on above: PATIENT WAS FASTINGP ERFORMED BY: LabCoven[facility] Center6[address] Kerr Roadblin [place] [id number] Lymphocytes (Bld) [#/Vol] 1.7 10*3/uL Normal 0.7-3.1 [facility]; [facility] Work Phone: Comment on above: PATIENT WAS FASTINGP ERFORMED BY: [facility] [facility] [place] [id number] Lymphocytes/100 WBC (Bld) 19 % Normal [facility] Work Phone: Comment on above: PATIENT WAS FASTINGP ERFORMED BY: [facility] [facility] [place] [id number] MCH (RBC) [Entitic mass] 29.2 pg Normal 26.6-33.0 [facility] Work Phone: Comment on above: PATIENT WAS FASTINGP ERFORMED BY: [facility] [facility] [place] [id number] MCHC (RBC) [Mass/Vol] 32.3 g/dL Normal 31.5-35.7 [facility] prehensive Internal Medicine Work Phone: Comment on above: PATIENT WAS FASTINGP ERFORMED BY: [facility] Ogwxdc4659 [address] [facility] HospitalDublin [place] [id number] MCV (RBC) [Entitic vol] 90 fL Normal 79-97 [facility] Work Phone: Comment on above: PATIENT WAS FASTINGP ERFORMED BY: [facility] Vkobfw6[address] RoadDublin [place] [id number] Monocytes (Bld) [#/Vol] 0.7 {x10E3/uL} Normal 0.1-0.9 [facility] Work Phone: Comment on above: PATIENT WAS FASTINGP ERFORMED BY: CB [facility] Zbmrwc6627 [address] RoadDublin [place] [id number] Monocytes (Bld) [#/Vol] 0.7 10*3/uL Normal 0.1-0.9 [facility]; [facility] Work Phone: Comment on above: PATIENT WAS FASTINGP ERFORMED BY: CB [facility] Jnnail110[address] RoadDublin [place] [id number] Monocytes/100 WBC (Bld) 8 % Normal [facility] Work Phone: Comment on above: PATIENT WAS FASTINGP ERFORMED BY: CB [facility] Gmyjej4791 [address] RoadDublin [place] [id number] Neutrophils (Bld) [#/Vol] 6.1 {x10E3/uL} Normal 1.4-7.0 [facility] Work Phone: Comment on above: PATIENT WAS FASTINGP ERFORMED BY: CB [facility] Nfxuog3743 [address] RoadDublin [place] [id number] Neutrophils (Bld) [#/Vol] 6.1 10*3/uL Normal 1.4-7.0 [facility]; [facility] Work Phone: Comment on above: PATIENT WAS FASTINGP ERFORMED BY: CB [facility] Syjhoj2627 [address] RoadDublin [place] [id number] Neutrophils/100 WBC (Bld) 72 % Normal [facility] Work Phone: Comment on above: PATIENT WAS FASTINGP ERFORMED BY: CB [facility] Nanzmz6[address] RoadDublin [place] [id number] Platelets (Bld) [#/Vol] 255 {x10E3/uL} Normal 150-450 [facility] Work Phone: Comment on above: PATIENT WAS FASTINGP ERFORMED BY: CB [facility] Sdpmor9271 [address] RoadDublin [place] [id number] Platelets (Bld) [#/Vol] 255 10*3/uL Normal 150-450 [facility]; [facility] Work Phone: Comment on above: PATIENT WAS FASTINGP ERFORMED BY: CB [facility] Rwidup5016 [address] RoadDublin [place] [id number] RBC (Bld) [#/Vol] 4.48 {x10E6/uL} Normal 4.14-5.80 [facility] Internal Medicine Work Phone: Comment on above: PATIENT WAS FASTINGP ERFORMED BY: CB [facility] Pwwqdg5559 [address] RoadDublin [place] [id number] RBC (Bld) [#/Vol] 4.48 10*6/uL Normal 4.14-5.80 [facility] Internal Medicine; [facility] Work Phone: Comment on above: PATIENT WAS FASTINGP ERFORMED BY: CB [facility] Hykzdo7519 [address] RoadDublin [place] [id number] WBC (Bld) [#/Vol] 8.7 {x10E3/uL} Normal 3.4-10.8 [facility] Internal Medicine Work Phone: Comment on above: PATIENT WAS FASTINGP ERFORMED BY: CB [facility] Tvetxw7406 [address] RoadDublin [place] [id number] WBC (Bld) [#/Vol] 8.7 10*3/uL Normal 3.4-10.8 [facility] Internal Medicine; [facility] Work Phone: Comment on above: PATIENT WAS FASTINGP ERFORMED BY: CB [facility] Xnuqfs1752 [address] [facility] Hospitalbl[facility] [place] [id number] METABOLIC PANEL, COMPREHENSI VE ([id number])Ordered By: Inductor Tester on 10-09-2019 Albumin [Mass/Vol] 4.2 g/dL Normal 3.7-4.7 [facility] Internal Medicine Work Phone: Comment on above: PATIENT WAS FASTINGP ERFORMED BY: CB [facility] Zisygy28[address] RoadDublin [place] [id number] Albumin/Globulin [Mass ratio] 1.9 {ratio} Normal 1.2-2.2 [facility] Internal Medicine Work Phone: Comment on above: PATIENT WAS FASTINGP ERFORMED BY: BRIGITTE [facility] Gabrej5232 [address] RoadDublin [place] [id number] ALP [Catalytic activity/Vol] 53 [iU]/L Normal 39-117 [facility] Work Phone: Comment on above: PATIENT WAS FASTINGP ERFORMED BY: BRIGITTE [facility] Lsrzap5348 [address] RoadDublin [place] [id number] ALP [Catalytic activity/Vol] 53 U/L Normal 39-117 [facility]; [facility] Work Phone: Comment on above: PATIENT WAS FASTINGP ERFORMED BY: BRIGITTE [facility] Dqlaxs5538 [address] RoadDublin [place] [id number] ALT [Catalytic activity/Vol] 16 [iU]/L Normal 0-44 [facility] Work Phone: Comment on above: PATIENT WAS FASTINGP ERFORMED BY: BRIGITTE Chaneylin6[address] RoadDublin [place] [id number] ALT [Catalytic activity/Vol] 16 U/L Normal 0-44 [facility]; [facility] Work Phone: Comment on above: PATIENT WAS FASTINGP ERFORMED BY: BRIGITTE LabSilvio ChaneyTlossl3973 [address] RoadDublin [place] [id number] AST [Catalytic activity/Vol] 17 [iU]/L Normal 0-40 [facility] Work Phone: Comment on above: PATIENT WAS FASTINGP ERFORMED BY: BRIGITTE [facility] Jkffjw1550 [address] RoadDublin [place] [id number] AST [Catalytic activity/Vol] 17 U/L Normal 0-40 [facility]; [facility] Work Phone: Comment on above: PATIENT WAS FASTINGP ERFORMED BY: BRIGITTE [facility] Pwpkkh4577 [address] RoadDublin [place] [id number] Bilirubin [Mass/Vol] 0.5 mg/dL Normal 0.0-1.2 [facility]ensive [facility] Work Phone: Comment on above: PATIENT WAS FASTINGP ERFORMED BY: BRIGITTE [facility] Nlmatc9[address] RoadDublin [place] [id number] Calcium [Mass/Vol] 9.2 mg/dL Normal 8.6-10.2 [facility] Internal Medicine Work Phone: Comment on above: PATIENT WAS FASTINGP ERFORMED BY: BRIGITTE [facility] Rzxgwc1192 [address] RoadDublin [place] [id number] Chloride [Moles/Vol] 104 mmol/L Normal 96-106 [facility] Work Phone: Comment on above: PATIENT WAS FASTINGP ERFORMED BY: [facility] Eexorn2[address] RoadDublin [place] [id number] CO2 [Moles/Vol] 27 mmol/L Normal 20-29 [facility] Internal Medicine Work Phone: Comment on above: PATIENT WAS FASTINGP ERFORMED BY: [facility] Dubxtl6447 [address] RoadDublin [place] [id number] Creatinine [Mass/Vol] 0.79 mg/dL Normal 0.76-1.27 [facility] Internal Medicine Work Phone: Comment on above: PATIENT WAS FASTINGP ERFORMED BY: [facility] Pyzabm9997 [address] RoadDublin [place] [id number] GFR/1.73 sq M predicted among blacks CKD-EPI (S/P/Bld) [Vol rate/Area] 99 mL/min/1.73 Normal [facility] Work Phone: Comment on above: PATIENT WAS FASTINGP ERFORMED BY: [facility] Wokhmr4716 [address] RoadDublin [place] [id number] GFR/1.73 sq M predicted among non-blacks CKD-EPI (S/P/Bld) [Vol rate/Area] 85 mL/min/1.73 Normal [facility] Work Phone: Comment on above: PATIENT WAS FASTINGP ERFORMED BY: [facility] Izshvr5705 [address] RoadDublin [place] [id number] Globulin (S) [Mass/Vol] 2.2 g/dL Normal 1.5-4.5 [facility] Work Phone: Comment on above: PATIENT WAS FASTINGP ERFORMED BY: BRIGITTE LabLiv Oqhraz3796 [address] RoadDublin [place] [id number] Glucose [Mass/Vol] 88 mg/dL Normal 65-99 [facility] Internal Medicine Work Phone: Comment on above: PATIENT WAS FASTINGP ERFORMED BY: BRIGITTE LabSilvio ChaneyYjicii2205 [address] RoadDublin [place] [id number] Potassium [Moles/Vol] 4.3 mmol/L Normal 3.5-5.2 [facility] Internal Medicine Work Phone: Comment on above: PATIENT WAS FASTINGP ERFORMED BY: BRIGITTE LabS[facility] Dbanta8[address] RoadDublin [place] [id number] Protein [Mass/Vol] 6.4 g/dL Normal 6.0-8.5 [facility] Internal Medicine Work Phone: Comment on above: PATIENT WAS FASTINGP ERFORMED BY: BRIGITTE Chaneylin6[address] RoadIredell Memorial Hospitalin [place] [id number] Sodium [Moles/Vol] 144 mmol/L Normal 134-144 [facility] Internal Medicine Work Phone: Comment on above: PATIENT WAS FASTINGP ERFORMED BY: BRIGITTE LabSilvio ChaneyYjoubm9478 [address] [facility]in [place] [id number] Urea nitrogen [Mass/Vol] 15 mg/dL Normal 8-27 [facility] Internal Medicine Work Phone: Comment on above: PATIENT WAS FASTINGP ERFORMED BY: BRIGITTE LabLiv Wlueqx2[address] RoadDublin [place] [id number] Urea nitrogen/Creatinine [Mass ratio] 19 mg/mg Normal 10-24 [facility] Internal Medicine Work Phone: Comment on above: PATIENT WAS FASTINGP ERFORMED BY: BRIGITTE [facility] Efxpyk7203 [address] [facility] HospitalD[facility] [place] [id number] MARY (ANTINUCLEAR ANTIBODY) ( [id number])Ordered By: Inductor Tester on 07-10-2019 Nuclear Ab Ql (S) Positive Abnormal Compreh [facility]ive Internal Medicine Work Phone: Comment on above: PATIENT NOT FASTINGP ERFORMED BY: BRIGITTE LabS[facility] Owxrki8570 [facility] [id number] BY: [address] [id number] Nuclear Ab Ql (S) Positive Abnormal Compreh ensive Internal Medicine; [facility] Work Phone: Comment on above: PATIENT NOT FASTINGP ERFORMED BY: [place] 8149670 [facility] [id number] BY: [address] [id number] BLD CNT, COMPL CBC W/AUTO DI FF WBC (94121)Ordered By: Inductor Tester on 07-10-2019 Basophils (Bld) [#/Vol] 0.1 {x10E3/uL} Normal 0.0-0.2 [facility] Work Phone: Comment on above: PATIENT NOT FASTINGP ERFORMED BY: [place] 8149670 [facility] [id number] BY: [address] [id number] Basophils (Bld) [#/Vol] 0.1 10*3/uL Normal 0.0-0.2 [facility]; [facility] Work Phone: Comment on above: PATIENT NOT FASTINGP ERFORMED BY: [place] 8149670 [facility] [id number] BY: [address] [id number] Basophils/100 WBC (Bld) 1 % Normal [facility] Work Phone: Comment on above: PATIENT NOT FASTINGP ERFORMED BY: [place] 8149670 [facility] [id number] BY: [address] [id number] Eosinophils (Bld) [#/Vol] 0.1 {x10E3/uL} Normal 0.0-0.4 [facility] Work Phone: Comment on above: PATIENT NOT FASTINGP ERFORMED BY: [facility] Ocfcuo6369 Kerr RoadIredell Memorial Hospitalin [place] [id number] BY: Lab[address] [id number] Eosinophils (Bld) [#/Vol] 0.1 10*3/uL Normal 0.0-0.4 [facility]; [facility] Work Phone: Comment on above: PATIENT NOT FASTINGP ERFORMED BY: CB [facility] Qicomp4938 [facility] [id number] BY: [facility] [address] [id number] Eosinophils/100 WBC (Bld) 1 % Normal [facility] Work Phone: Comment on above: PATIENT NOT FASTINGP ERFORMED BY: BRIGITTE [facility] Dqjrxx8348 [facility] [id number] BY: [address] [id number] Erythrocyte distribution width (RBC) [Ratio] 13.2 % Normal 11.6-15.4 [facility] Work Phone: Comment on above: PATIENT NOT FASTINGP ERFORMED BY: BRIGITTE [facility] Bikgvd2249 [facility]in [place] [id number] BY: Lab[address] [id number] Hematocrit (Bld) [Volume fraction] 42.0 % Normal 37.5-51.0 [facility] Work Phone: Comment on above: PATIENT NOT FASTINGP ERFORMED BY: CB [facility] Pccotn1009 [facility]in [place] [id number] BY: Lab[address] [id number] Hemoglobin (Bld) [Mass/Vol] 14.2 g/dL Normal 13.0-17.7 [facility] Work Phone: Comment on above: PATIENT NOT FASTINGP ERFORMED BY: CB [facility] Glelcx2904 [facility] [id number] BY: [employer] [id number] Immature granulocytes (Bld) [#/Vol] 0.2 {x10E3/uL} Abnormal 0.0-0.1 [facility] Work Phone: Comment on above: (An elevated percent age of Immature Granulocytes has not been foundto be clinically significant as a sole clinical predictor of disease.Does NOT include bands or blast cells. associatedphysiological leukocytosis may also show increased immaturegranulocytes without clinical significance.) PATIENT NOT FASTINGP ERFORMED BY: [employer] Sofvwf8356 [facility] [id number] BY: [employer] [id number] Immature granulocytes (Bld) [#/Vol] 0.2 10*3/uL Abnormal 0.0-0.1 [facility]; [facility] Work Phone: Comment on above: (An elevated percent age of Immature Granulocytes has not been foundto be clinically significant as a sole clinical predictor of disease.Does NOT include bands or blast cells. associatedphysiological leukocytosis may also show increased immaturegranulocytes without clinical significance.) PATIENT NOT FASTINGP ERFORMED BY: [employer] Zdjkiw8160 [facility] [id number] BY: [address] [id number] Immature granulocytes/100 WBC (Bld) 2 % Normal [facility] Work Phone: Comment on above: PATIENT NOT FASTINGP ERFORMED BY: LabArg[employer]rapeutics Phardr3643 [facility] [id number] BY: [address] [id number] Lymphocytes (Bld) [#/Vol] 2.5 {x10E3/uL} Normal 0.7-3.1 [facility] Work Phone: Comment on above: PATIENT NOT FASTINGP ERFORMED BY: [facility] Zcdvlz6314 [facility] [id number] BY: Lab[address] [id number] Lymphocytes (Bld) [#/Vol] 2.5 10*3/uL Normal 0.7-3.1 [facility]; [facility] Work Phone: Comment on above: PATIENT NOT FASTINGP ERFORMED BY: BRIGITTE [facility] Szsosa0958 [facility] [id number] BY: [facility]Co[address] [id number] Lymphocytes/100 WBC (Bld) 23 % Normal [facility] Work Phone: Comment on above: PATIENT NOT FASTINGP ERFORMED BY: BRIGITTE [facility] Ndmvfj9378 [facility] [id number] BY: [address] [id number] MCH (RBC) [Entitic mass] 30.5 pg Normal 26.6-33.0 [facility] Work Phone: Comment on above: PATIENT NOT FASTINGP ERFORMED BY: BRIGITTE [facility] Cwstde3553 [facility] [id number] BY: Lab[address] [id number] MCHC (RBC) [Mass/Vol] 33.8 g/dL Normal 31.5-35.7 [facility] Internal Medicine Work Phone: Comment on above: PATIENT NOT FASTINGP ERFORMED BY: CB [facility] Eminlj2404 [facility] [id number] BY: Lab[address] [id number] MCV (RBC) [Entitic vol] 90 fL Normal 79-97 [facility] Work Phone: Comment on above: PATIENT NOT FASTINGP ERFORMED BY: CB [facility] Bqqcvj3703 [facility] [id number] BY: Lab[address] [id number] Monocytes (Bld) [#/Vol] 0.9 {x10E3/uL} Normal 0.1-0.9 [facility] Work Phone: Comment on above: PATIENT NOT FASTINGP ERFORMED BY: BRIGITTE [facility] Mzvkml0053 [facility] [id number] BY: [facility] [id number] Monocytes (Bld) [#/Vol] 0.9 10*3/uL Normal 0.1-0.9 [facility]; [facility] Work Phone: Comment on above: PATIENT NOT FASTINGP ERFORMED BY: BRIGITTE [facility] Yyimib7049 [facility] [id number] BY: [address] [id number] Monocytes/100 WBC (Bld) 8 % Normal [facility] Work Phone: Comment on above: PATIENT NOT FASTINGP ERFORMED BY: [facility] Gbexgc4691 [facility] [id number] BY: [address] [id number] Neutrophils (Bld) [#/Vol] 6.9 {x10E3/uL} Normal 1.4-7.0 [facility] Work Phone: Comment on above: PATIENT NOT FASTINGP ERFORMED BY: [facility] Vxszmv6660 [facility] [id number] BY: [address] [id number] Neutrophils (Bld) [#/Vol] 6.9 10*3/uL Normal 1.4-7.0 [facility]; [facility] Work Phone: Comment on above: PATIENT NOT FASTINGP ERFORMED BY: [facility] Etkqow4660 [facility] [id number] BY: BN [facility] [address] [id number] Neutrophils/100 WBC (Bld) 65 % Normal [facility] Work Phone: Comment on above: PATIENT NOT FASTINGP ERFORMED BY: CB [facility] Wtfhye2738 Kerr RoadDublin [place] [id number] BY: BN [facility] [address] [id number] Platelets (Bld) [#/Vol] 302 {x10E3/uL} Normal 150-450 [facility] Work Phone: Comment on above: PATIENT NOT FASTINGP ERFORMED BY: CB [facility] Dymtza4519 [facility]Du[facility] [id number] BY: BN [facility] [address] [id number] Platelets (Bld) [#/Vol] 302 10*3/uL Normal 150-450 [facility]; [facility] Work Phone: Comment on above: PATIENT NOT FASTINGP ERFORMED BY: CB [facility] Ubqwvr7101 [facility] [id number] BY: [facility] [address] [id number] RBC (Bld) [#/Vol] 4.66 {x10E6/uL} Normal 4.14-5.80 [facility] Internal Medicine Work Phone: Comment on above: PATIENT NOT FASTINGP ERFORMED BY: CB [facility] Mrcyyk0638 [facility] [id number] BY: BN [facility] [address] [id number] RBC (Bld) [#/Vol] 4.66 10*6/uL Normal 4.14-5.80 [facility] Internal Medicine; [facility] Work Phone: Comment on above: PATIENT NOT FASTINGP ERFORMED BY: CB [facility] Nclfyp0173 [facility] [id number] BY: Lab[address] [id number] WBC (Bld) [#/Vol] 10.6 {x10E3/uL} Normal 3.4-10.8 [facility] Internal Medicine Work Phone: Comment on above: PATIENT NOT FASTINGP ERFORMED BY: BRIGITTE [facility] Bvzoej0722 [facility] [id number] BY: [address] [id number] WBC (Bld) [#/Vol] 10.6 10*3/uL Normal 3.4-10.8 [facility] Internal Medicine; [facility] Work Phone: Comment on above: PATIENT NOT FASTINGP ERFORMED BY: BRIGITTE [facility] Ykfiqp2705 [facility] [id number] BY: [address] [id number] C-REACTIVE PROTEIN ([id number])Or dered By: Inductor Tester on 07-10-2019 CRP [Mass/Vol] 27 mg/L Abnormal 0-10 [facility] Internal Medicine Work Phone: Comment on above: PATIENT NOT FASTINGP ERFORMED BY: BRIGITTE [facility] Jkzoyh2146 [facility] [id number] BY: [address] [id number] CCP ANTIBODY ([id number])Ordered By: Inductor Tester on 07-10-2019 Cyclic citrullinated peptide IgA+IgG IA Qn 8 {units} Normal 0-19 [facility] mil[place] Internal Medicine Work Phone: Comment on above: Negative <20 Weak po sitive 20 - 39 Moderate positive 40 - 59 Strong positive >59 PATIENT NOT FASTINGP ERFORMED BY: BRIGITTE [facility] Mbftda4873 [facility] [id number] BY: [address] [id number] DNA ANTIBODY-NATV/DBL ST (86 225) test code [id number] By: Inductor Tester on 07-10-2019 DNA double strand Ab Qn (S) 25 {IU/mL} Abnormal 0-9 [facility] Work Phone: Comment on above: Negative <5 Equivoca l 5 - 9 Positive >9 PATIENT NOT FASTINGP ERFORMED BY: BRIGITTE [employer] Xfpgfy5669 [facility] [id number] BY: [address] [id number] DNA double strand Ab Qn (S) 25 [IU]/mL Abnormal 0-9 [facility]; [facility] Work Phone: Comment on above: Negative <5 Equivoca l 5 - 9 Positive >9 PATIENT NOT FASTINGP ERFORMED BY: BRIGITTE [employer] Cheeix6446 [facility] [id number] BY: [address] [id number] EBV Antibody Profile (43784) Ordered By: Inductor Tester on 07-10-2019 EBV Antibody Profile (46460) <36.0 Normal 0.0-35.9 [facility] Work Phone: Comment on above: Negative <36.0 Equiv ocal 36.0 - 43.9 Positive >43.9 PATIENT NOT FASTINGP ERFORMED BY: BRIGITTE [employer] Ogtzvn1439 [facility] [id number] BY: [address] [id number] EBV Antibody Profile (96640) >600.0 Abnormal 0.0-17.9 [facility] Work Phone: Comment on above: Negative <18.0 Equiv ocal 18.0 - 21.9 Positive >21.9 PATIENT NOT FASTINGP ERFORMED BY: BRIGITTE [employer] Xuydol5543 [facility] [id number] BY: [address] [id number] EBV Antibody Profile (84213) SPRCS Normal [facility] Work Phone: Comment on above: EBV Interpretation C cent[place] Yanes: Antibody Present + Antibody Absent - Interpretation VCA-IgM VCA-IgG EBNA-IgG . No previous infection/ - - - Susceptible Primary infection (new + + - or recent) Past Infection +or- + + See comment below* + - - *Results indicate infection with EBV at some time however cannot predict the timing of the infection since antibodies to EBNA usually develop after primary infection or, alternatively, approximately 5-10% of patients with EBV never develop antibodies to EBNA. PATIENT NOT FASTINGP ERFORMED BY: SYLOB70 [facility] [facility] [id number] BY: [employer] [address] [id number] ESR-F (SED RATE ERYTHROCYTE - MALE) ([id number])Ordered By: Inductor Tester on 07-10-2019 ESR (Bld) [Velocity] 24 mm/h Normal 0-30 [facility] Work Phone: Comment on above: PATIENT NOT FASTINGP ERFORMED BY: [place] [employer] [facility] [id number] BY: [employer] [address] [id number] Lyme Disease Antibody W/ Ref tala (42997)Ordered By: Inductor Tester on 07-10-2019 B. burgdorferi IgG+IgM Qn (S) {index_val} Normal 0.00-0.90 [facility] Work Phone: Comment on above: Negative <0.91 Equiv ocal 0.91 - 1.09 Positive >1.09 PATIENT NOT FASTINGP ERFORMED BY: VoAPPslin6370 [facility] [id number] BY: [employer] [address] [id number] B. burgdorferi IgG+IgM Qn (S) {index_val} Normal 0.00-0.90 [facility]; [facility] Work Phone: Comment on above: Negative <0.91 Equiv ocal 0.91 - 1.09 Positive >1.09 PATIENT NOT FASTINGP ERFORMED BY: SYLOB70 [facility] SolutionsNov[facility] [id number] BY: [employer] [id number] URINE JORJE CULTURE-DAY COL C OUNT (44923)Ordered By: Inductor Tester on 07-10-2019 Bacteria identified Cx Nom (U) Enterococcus faecalis Abnormal Comprehens milka Internal Medicine Work Phone: Comment on above: 200 Colonies/mL .Not e: this isolate is vancomycin-susceptible.This information is provided for epidemiologic purposes only:vancomycin is not among the antibiotics recommended for therapyof urinary tract infections caused by Enterococcus.For Enterococcus species, aminoglycosides (except for high-levelresistance screening), cephalosporins, clindamycin, andtrimethoprim-sulfamethoxazole are not effective clinically.(CLSI, T421-V67, 2016) PATIENT NOT FASTINGP ERFORMED BY: [employer] Zovzei6975 KerrLuxul WirelessSelect [facility] Hospital [facility] [id number] Information: SRC: Bacteria identified Cx Nom (U) Final report Abnormal [facility] Work Phone: Comment on above: PATIENT NOT FASTINGP ERFORMED BY: [employer] Anmvto1414 [place] [employer] Edge TechnologiesNovant Health Cle[facility] [id number] Information: SRC: Other Antibiotic [Susc] MIHEAD Normal [facility] Work Phone: Comment on above: S = Susceptible; I = Intermediate; R = Resistant P = Positive; N = Negative MICS are expressed in micrograms per mL Antibiotic RSLT#1 RSLT#2 RSLT#3 RSLT#4Ciprofloxacin SLevofloxacin SNitrofurantoin SPenicillin STetracycline RVancomycin S PATIENT NOT FASTINGP ERFORMED BY: [employer] Jmhesc0968 [facility] Edge TechnologiesNov[facility] [id number] Information: SRC: URINE JORJE CULTURE-IDENTIFICA TN (40334)Ordered By: Inductor Tester on 12-08-2015 Bacteria identified Cx Nom (U) Final report Normal [facility] Work Phone: Comment on above: PATIENT NOT FASTINGP ERFORMED BY: [facility] Hcxgnj1456 [facility] Edge TechnologiesNov[facility] Health [facility] [id number] Information: H01200 Bacteria identified Cx Nom (U) NG36 Normal [facility] Work Phone: Comment on above: No growth in 36 - 48 hours. PATIENT NOT FASTINGP ERFORMED BY: BRIGITTE [facility] Zdhevt9735 [facility] [id number] Information: [id number] Urinalysis, Office (29872)Or dered By: Lizzy Long on 12-08-2015 Bilirubin Ql (U) Small Normal Comprehe nsive Internal Medicine Work Phone: Glucose Test strip (U) [Mass/Vol] Negative Normal [facility] Work Phone: Glucose Test strip (U) [Mass/Vol] Negative Normal [facility]; [facility] Work Phone: Hemoglobin Ql (U) Negative Normal Compreh ensive Internal Medicine Work Phone: Hemoglobin Ql (U) Negative Normal Compreh ensive Internal Medicine; [facility] Work Phone: Ketones Ql (U) Negative Normal Comprehens milka Internal Medicine Work Phone: Ketones Ql (U) Negative Normal Comprehens mil[facility]; [facility] Work Phone: Leukocyte esterase Test strip Ql (U) Trace Normal [facility] Work Phone: Nitrite Ql (U) Negative Normal Comprehens milka Internal Medicine Work Phone: Nitrite Ql (U) Negative Normal Comprehens mil[facility]; [facility] Work Phone: pH (U) 5 [pH] Abnormal [facility] Work Phone: Protein Ql (U) 30 mg/dL Normal Comprehens milka Internal Medicine Work Phone: Specific gravity (U) [Rel density] 1.025 1 Normal [facility] Work Phone: Urobilinogen (24H U) [Mass/Time] Normal Normal [facility] Work Phone: Rapid Strep Test, Office ([phone])on 11-10-2015 S. pyogenes Ag EIA Ql (Throat) Negative Normal [facility]; [facility] Work Phone: S. pyogenes Ag IA Ql (Unsp spec) Negative Normal [facility] Work Phone: LIPID PANEL (05892)Ordered B y: Inductor Tester on 07-03-2014 Cholesterol [Mass/Vol] 178 mg/dL Normal 100-199 Co mprehensive Internal Medicine Work Phone: Comment on above: PATIENT NOT FASTINGP ERFORMED BY: CB [facility] Hbazak1012 Kerr ITegrisblin [place] [id number] Cholesterol in HDL [Mass/Vol] 42 mg/dL Normal [facility] Work Phone: Comment on above: According to ATP-III Guidelines, HDL-C >59 mg/dL is considered anegative risk factor for CHD. PATIENT NOT FASTINGP ERFORMED BY: CB [facility] Rknpyo3333 Kerr ITegrisblin [place] [id number] Cholesterol in LDL [Mass/Vol] 125 mg/dL Abnormal 0-99 [facility] Work Phone: Comment on above: PATIENT NOT FASTINGP ERFORMED BY: CB [facility] Ykhadd3400 Kerr ITegrisblin [place] [id number] Cholesterol in LDL/Cholesterol in HDL [Mass ratio] 3.0 {ratio_units} Normal 0.0-3.6 [facility] Work Phone: Comment on above: LDL/HDL Ratio Men Wo men 1/2 Avg.Risk 1.0 1.5 Avg.Risk 3.6 3.2 2X Avg.Risk 6.2 5.0 3X Avg.Risk 8.0 6.1 PATIENT NOT FASTINGP ERFORMED BY: CB [facility] Mislrr2439 Kerr Agile Edge TechnologiesDublin [place] [id number] Cholesterol in VLDL [Mass/Vol] 11 mg/dL Normal 5-40 [facility] Work Phone: Comment on above: PATIENT NOT FASTINGP ERFORMED BY: CB [facility] Yxwnoa7183 Kerr Agile Edge TechnologiesDublin [place] [id number] Triglyceride [Mass/Vol] 53 mg/dL Normal 0-149 [facility] Work Phone: Comment on above: PATIENT NOT FASTINGP ERFORMED BY: BRIGITTE Costa6370 Kerr [facility] [place] [id number] METABOLIC PANEL, COMPREHENSI VE (50501)Ordered By: Inductor Tester on 07-03-2014 Albumin [Mass/Vol] 4.3 g/dL Normal 3.5-4.8 [facility] Internal Medicine Work Phone: Comment on above: PATIENT NOT FASTINGP ERFORMED BY: BRIGITTE LabCoelsa ChaneyBsnbii7874 [facility] [id number] Information: [id number], [id number] Albumin/Globulin [Mass ratio] 1.8 {ratio} Normal 1.1-2.5 [facility] Work Phone: Comment on above: PATIENT NOT FASTINGP ERFORMED BY: BRIGITTE Chaneylin6370 [facility] [id number] Information: J35836, 712215 ALP [Catalytic activity/Vol] 58 [iU]/L Normal 39-117 [facility] Work Phone: Comment on above: PATIENT NOT FASTINGP ERFORMED BY: BRIGITTE Chaneylin6370 [facility] [id number] Information: [id number], 588491 ALP [Catalytic activity/Vol] 58 U/L Normal 39-117 [facility]; [facility] Work Phone: Comment on above: PATIENT NOT FASTINGP ERFORMED BY: BRIGITTE [facility] Wvhtbt1330 [facility] [id number] Information: L71113, 830675 ALT [Catalytic activity/Vol] 24 [iU]/L Normal 0-44 [facility] Work Phone: Comment on above: PATIENT NOT FASTINGP ERFORMED BY: BRIGITTE [facility] Pgsndx7713 [facility] [id number] Information: [id number], 255399 ALT [Catalytic activity/Vol] 24 U/L Normal 0-44 [facility]; [facility] Work Phone: Comment on above: PATIENT NOT FASTINGP ERFORMED BY: BRIGITTE [facility] Bcjxog4210 Kerr [facility] [place] [id number] Information: [id number], 477637 AST [Catalytic activity/Vol] 19 [iU]/L Normal 0-40 [facility] Work Phone: Comment on above: PATIENT NOT FASTINGP ERFORMED BY: CB [facility] Xichlc3748 [facility] [place] [id number] Information: D87996, 376731 AST [Catalytic activity/Vol] 19 U/L Normal 0-40 [facility]; [facility] Work Phone: Comment on above: PATIENT NOT FASTINGP ERFORMED BY: BRIGITTE [facility] Mbwozg0501 [facility] [id number] Information: Q87652, 526105 Bilirubin [Mass/Vol] 1.0 mg/dL Normal 0.0-1.2 Comp rehensive Internal Medicine Work Phone: Comment on above: PATIENT NOT FASTINGP ERFORMED BY: [facility] Kwwxvq2577 [facility] [id number] Information: D19118, 576645 Calcium [Mass/Vol] 9.3 mg/dL Normal 8.6-10.2 [facility] Internal Medicine Work Phone: Comment on above: PATIENT NOT FASTINGP ERFORMED BY: [facility] Rfdeur3297 [facility] [id number] Information: Q66640, 325681 Chloride [Moles/Vol] 100 mmol/L Normal 97-108 Comp rehensive Internal Medicine Work Phone: Comment on above: PATIENT NOT FASTINGP ERFORMED BY: CB [facility] Ibmghr8032 Kerr [facility] [place] [id number] Information: P39835, 362970 CO2 [Moles/Vol] 26 mmol/L Normal 18-29 Comprehen [facility] Internal Medicine Work Phone: Comment on above: PATIENT NOT FASTINGP ERFORMED BY: CB [facility] Hquoqo2797 [facility] [id number] Information: J83037, 243279 Creatinine [Mass/Vol] 0.89 mg/dL Normal 0.76-1.27 [facility] prehensive Internal Medicine Work Phone: Comment on above: PATIENT NOT FASTINGP ERFORMED BY: [place] 8149670 [facility] [id number] Information: B01443, 437226 GFR/1.73 sq M predicted among blacks CKD-EPI (S/P/Bld) [Vol rate/Area] 98 mL/min/1.73 Normal [facility] Work Phone: Comment on above: PATIENT NOT FASTINGP ERFORMED BY: [facility] Qwmcrg9553 [facility] [id number] Information: L82145, 128950 GFR/1.73 sq M predicted among non-blacks CKD-EPI (S/P/Bld) [Vol rate/Area] 85 mL/min/1.73 Normal [facility] Work Phone: Comment on above: PATIENT NOT FASTINGP ERFORMED BY: [facility] Vijwce6662 [facility] [id number] Information: F07022, 893432 Globulin (S) [Mass/Vol] 2.4 g/dL Normal 1.5-4.5 [facility] Internal Medicine Work Phone: Comment on above: PATIENT NOT FASTINGP ERFORMED BY: LabCoKessler Institute for RehabilitationKudbwl4844 [facility] [id number] Information: X16526, 245245 Glucose [Mass/Vol] 91 mg/dL Normal 65-99 [facility] Internal Medicine Work Phone: Comment on above: PATIENT NOT FASTINGP ERFORMED BY: LabCoKessler Institute for RehabilitationApyaif2198 [facility] [id number] Information: K34185, 056298 Potassium [Moles/Vol] 4.2 mmol/L Normal 3.5-5.2 Com prehensive Internal Medicine Work Phone: Comment on above: PATIENT NOT FASTINGP ERFORMED BY: BRIGITTE TavarezCoelsa CostaRwhnlv6352 [facility] [id number] Information: K86020, 209481 Protein [Mass/Vol] 6.7 g/dL Normal 6.0-8.5 [facility] Internal Medicine Work Phone: Comment on above: PATIENT NOT FASTINGP ERFORMED BY: CB [facility] Onaycy2686 [facility] [id number] Information: K49369, 562582 Sodium [Moles/Vol] 140 mmol/L Normal 134-144 [facility] Internal Medicine Work Phone: Comment on above: PATIENT NOT FASTINGP ERFORMED BY: BRIGITTE TavarezCorp Iytguj6801 [facility] [id number] Information: I05678, 923833 Urea nitrogen [Mass/Vol] 16 mg/dL Normal 8-27 [facility] Internal Medicine Work Phone: Comment on above: PATIENT NOT FASTINGP ERFORMED BY: BRIGITTE TavarezCo Dhmifo1112 [facility] [id number] Information: F30541, 815877 Urea nitrogen/Creatinine [Mass ratio] 18 mg/mg Normal 10-22 [facility] Internal Medicine Work Phone: Comment on above: PATIENT NOT FASTINGP ERFORMED BY: CB [facility] Xpgihy2291 [facility] [id number] Information: V39335, 805464 PSA (PROSTATE SPECIFIC ANTIG EN) (V76.44)Ordered By: Inductor Tester on 07-03-2014 Prostate specific Ag [Mass/Vol] 0.6 ng/mL Normal 0.0-4.0 [facility] Internal Medicine Work Phone: Comment on above: ValenTx ECLIA methodol ogy. .According to the [place] [employer], Serum PSA shoulddecrease and remain at undetectable levels after radicalprostatectomy. The AUA defines biochemical recurrence as an initialPSA value 0.2 ng/mL or greater followed by a subsequent confirmatoryPSA value 0.2 ng/mL or greater.Values obtained with different assay methods or kits cannot be usedinterchangeably. Results cannot be interpreted as absolute evidenceof the presence or absence of malignant disease. PATIENT NOT FASTINGP ERFORMED BY: CB [facility] Fbawyk3569 [facility] [id number] HgA1C , Office ([phone])Ordere d By: Dimple Bryant on 04-25-2013 HbA1c (Bld) [Mass fraction] 5.4 % Normal 4.6 - 7.1 [facility] Work Phone: HgA1C , Office ([phone])on HbA1c (Bld) [Mass fraction] 5.6 % Normal 4.6 - 7.1 [facility] Work Phone: LIPID PANEL (20129)Ordered B y: Inductor Tester on 03-24-2012 Cholesterol [Mass/Vol] 182 mg/dL Normal 100-199 [facility] Work Phone: Comment on above: PATIENT WAS FASTINGP ERFORMED BY: Vertro Toospv6966 [place] Agile Edge TechnologiesNov[facility] Health [facility] [id number] Cholesterol in HDL [Mass/Vol] 45 mg/dL Normal [facility] Work Phone: Comment on above: According to ATP-III Guidelines, HDL-C >59 mg/dL is considered anegative risk factor for CHD. PATIENT WAS FASTINGP ERFORMED BY: CB [facility] Xarucg1790 Kerr ITegrisSelect Specialty [facility] [id number] Cholesterol in LDL [Mass/Vol] 125 mg/dL Abnormal 0-99 [facility] Work Phone: Comment on above: PATIENT WAS FASTINGP ERFORMED BY: CB [facility] Wmlxzj0158 Kerr ITegrisin [place] [id number] Cholesterol in LDL/Cholesterol in HDL [Mass ratio] 2.8 {ratio_units} Normal 0.0-3.6 [facility] Work Phone: Comment on above: PATIENT WAS FASTINGP ERFORMED BY: CB [facility] Qlrhxr6285 [place] ITegrisSelect Specialty [facility] [id number] Cholesterol in VLDL [Mass/Vol] 12 mg/dL Normal 5-40 [facility] Work Phone: Comment on above: PATIENT WAS FASTINGP ERFORMED BY: BRIGITTE Costa6370 [facility] [id number] Triglyceride [Mass/Vol] 58 mg/dL Normal 0-149 [facility] Work Phone: Comment on above: PATIENT WAS FASTINGP ERFORMED BY: BRIGITTE Raúl Mwpsgh4669 [facility] [id number] METABOLIC PANEL, COMPREHENSI VE (55747)Ordered By: Inductor Tester on 03-24-2012 Albumin [Mass/Vol] 4.1 g/dL Normal 3.5-4.8 [facility] Internal Medicine Work Phone: Comment on above: PATIENT WAS FASTINGP ERFORMED BY: BRIGITTE Olsen Yplvpj5756 [facility] [id number] Information: 888704,N12631 Albumin/Globulin [Mass ratio] 1.8 {ratio} Normal 1.1-2.5 [facility] Work Phone: Comment on above: PATIENT WAS FASTINGP ERFORMED BY: BRIGITTE Costa6370 [facility] [id number] Information: 756086,Q00060 ALP [Catalytic activity/Vol] 49 [iU]/L Normal 25-160 [facility] Work Phone: Comment on above: PATIENT WAS FASTINGP ERFORMED BY: BRIGITTE Olsen Xlovjm5774 [facility] [id number] Information: 154522,M65348 ALP [Catalytic activity/Vol] 49 U/L Normal 25-160 [facility]; [facility] Work Phone: Comment on above: PATIENT WAS FASTINGP ERFORMED BY: BRIGITTE Olsen Wdnilh7521 [facility] [id number] Information: [id number],G78422 ALT [Catalytic activity/Vol] 19 [iU]/L Normal 0-44 [facility] Work Phone: Comment on above: PATIENT WAS FASTINGP ERFORMED BY: BRIGITTE DaysiCovenant Medical Center6370 [facility] [id number] Information: 980700,H80845 ALT [Catalytic activity/Vol] 19 U/L Normal 0-44 [facility]; [facility] Work Phone: Comment on above: PATIENT WAS FASTINGP ERFORMED BY: BRIGITTE [facility] Jezxyh8533 [facility] [id number] Information: 188579,E08380 AST [Catalytic activity/Vol] 17 [iU]/L Normal 0-40 [facility] Work Phone: Comment on above: PATIENT WAS FASTINGP ERFORMED BY: BRIGITTE Chaneylin6370 [facility] [id number] Information: 302324,F28846 AST [Catalytic activity/Vol] 17 U/L Normal 0-40 [facility]; [facility] Work Phone: Comment on above: PATIENT WAS FASTINGP ERFORMED BY: BRIGITTE TavarezSoutheast [facility] Treatment Center Jdsomv9690 [facility] [id number] Information: 964613,X10497 Bilirubin [Mass/Vol] 0.9 mg/dL Normal 0.0-1.2 Comp rehensive Internal Medicine Work Phone: Comment on above: PATIENT WAS FASTINGP ERFORMED BY: BRIGITTE TavarezSoutheast [facility] Community Treatment Center Flprmv9379 [facility] [id number] Information: 052268,X78643 Calcium [Mass/Vol] 9.2 mg/dL Normal 8.6-10.2 [facility] Internal [facility] Work Phone: Comment on above: PATIENT WAS FASTINGP ERFORMED BY: BRIGITTE LabCovenant Medical Center6370 [facility] [id number] Information: 101292,F75896 Chloride [Moles/Vol] 103 mmol/L Normal 97-108 Comp rehensive Internal Medicine Work Phone: Comment on above: PATIENT WAS FASTINGP ERFORMED BY: BRIGITTE TavarezSoutheast [facility] Community Treatment Center Rymndi7678 [facility] [id number] Information: 020999,B89761 CO2 [Moles/Vol] 23 mmol/L Normal 20-32 [facility] Internal Medicine Work Phone: Comment on above: PATIENT WAS FASTINGP ERFORMED BY: [facility] Rpbxxo2068 [facility] [id number] Information: 656391,K90626 Creatinine [Mass/Vol] 0.81 mg/dL Normal 0.76-1.27 [facility] Internal Medicine Work Phone: Comment on above: PATIENT WAS FASTINGP ERFORMED BY: [facility] Lkuqpx3009 [facility] [id number] Information: 601683,H58011 GFR/1.73 sq M predicted among blacks CKD-EPI (S/P/Bld) [Vol rate/Area] 103 mL/min/1.73 Normal [facility] Work Phone: Comment on above: PATIENT WAS FASTINGP ERFORMED BY: [facility] Kjions8889 [facility] [id number] Information: 413642,N61079 GFR/1.73 sq M predicted among non-blacks CKD-EPI (S/P/Bld) [Vol rate/Area] 89 mL/min/1.73 Normal [facility] Work Phone: Comment on above: PATIENT WAS FASTINGP ERFORMED BY: LabS[facility] Hssqhe1086 [facility] [id number] Information: 067894,D87392 Globulin (S) [Mass/Vol] 2.3 g/dL Normal 1.5-4.5 [facility] Work Phone: Comment on above: PATIENT WAS FASTINGP ERFORMED BY: [facility] Germgh7531 [facility] [id number] Information: 794897,K65693 Glucose [Mass/Vol] 101 mg/dL Abnormal 65-99 [facility] Internal Medicine Work Phone: Comment on above: PATIENT WAS FASTINGP ERFORMED BY: [facility]6370 [facility] [id number] Information: 133783,E71496 Potassium [Moles/Vol] 4.1 mmol/L Normal 3.5-5.2 [facility] Internal Medicine Work Phone: Comment on above: PATIENT WAS FASTINGP ERFORMED BY: LabJoyce [place] 7300770 [facility] [id number] Information: 957662,X23547 Protein [Mass/Vol] 6.4 g/dL Normal 6.0-8.5 [facility] Internal Medicine Work Phone: Comment on above: PATIENT WAS FASTINGP ERFORMED BY: [facility]6370 [facility] [id number] Information: 626006,Y76671 Sodium [Moles/Vol] 139 mmol/L Normal 134-144 [facility] Internal Medicine Work Phone: Comment on above: PATIENT WAS FASTINGP ERFORMED BY: [facility]6370 [facility] [id number] Information: 317504,I59921 Urea nitrogen [Mass/Vol] 18 mg/dL Normal 8-27 [facility] Internal Medicine Work Phone: Comment on above: PATIENT WAS FASTINGP ERFORMED BY: LabCovenant [facility] Center6370 [facility] [id number] Information: 959729,M82637 Urea nitrogen/Creatinine [Mass ratio] 22 mg/mg Normal 10-22 [facility] Work Phone: Comment on above: PATIENT WAS FASTINGP ERFORMED BY: LabCovenant [facility] Center6370 [facility] [id number] Information: 760417,L92775 Rapid Strep Test, Office ([phone])on 12-03-2011 S. pyogenes Ag EIA Ql (Throat) Negative Normal [facility]; [facility] Work Phone: S. pyogenes Ag IA Ql (Unsp spec) Negative Normal [facility] Work Phone: Throat Culture ([id number])Ordere d By: Inductor Tester on 12-03-2011 Bacteria identified Respiratory culture Nom (Unsp spec) RRF Normal [facility] Work Phone: Comment on above: Routine respiratory belem PATIENT NOT FASTINGP ERFORMED BY: BRIGITTE LabJoyce [place] 7300770 [facility] [id number] Information: SRC:THRBan P26700 Bacteria identified Respiratory culture Nom (Unsp spec) Final report Normal [facility] Work Phone: Comment on above: PATIENT NOT FASTINGP ERFORMED BY: BRIGITTE [employer] [id number] Information: SRC:LARISA [id number] HEPATIC FUNCTION PANEL (8007 6)Ordered By: Barbara Mills on 08-23-2008 Albumin [Mass/Vol] 4.4 g/dL Normal 3.6-4.8 [facility] Internal [facility] Work Phone: Comment on above: PATIENT WAS FASTINGC linical Information: ADD DRAW FEE [id number] ADD J 38575 PERFORMED BY: BRIGITTE [employer] En[employer] ProductionsSoutheast [facility] Treatment Center Ubbomt8180 [facility] [id number] ALP [Catalytic activity/Vol] 53 [iU]/L Normal 25-160 [facility] Work Phone: Comment on above: PATIENT WAS FASTINGC linical Information: ADD DRAW FEE 749902 ADD J 16858 PERFORMED BY: BRIGITTE [employer] [id number] ALP [Catalytic activity/Vol] 53 U/L Normal 25-160 [facility]; [facility] Work Phone: Comment on above: PATIENT WAS FASTINGC linical Information: ADD DRAW FEE [id number] ADD J 68910 PERFORMED BY: [employer] [id number] ALT [Catalytic activity/Vol] 18 [iU]/L Normal 0-55 [facility] Work Phone: Comment on above: PATIENT WAS FASTINGC linical Information: ADD DRAW FEE [id number] ADD J 05554 PERFORMED BY: [facility]6370 [facility] [id number] ALT [Catalytic activity/Vol] 18 U/L Normal 0-55 [facility]; [facility] Work Phone: Comment on above: PATIENT WAS FASTINGC linical Information: ADD DRAW FEE [id number] ADD J [id number] PERFORMED BY: [address] [id number] AST [Catalytic activity/Vol] 19 [iU]/L Normal 0-40 [facility] Work Phone: Comment on above: PATIENT WAS FASTINGC linical Information: ADD DRAW FEE [id number] ADD J [id number] PERFORMED BY: [place] [id number] [facility] [id number] AST [Catalytic activity/Vol] 19 U/L Normal 0-40 [facility]; [facility] Internal Medicine Work Phone: Comment on above: PATIENT WAS FASTINGC linical Information: ADD DRAW FEE [id number] ADD J [id number] PERFORMED BY: [place] [id number] [facility] [id number] Bilirubin [Mass/Vol] 1.2 mg/dL Normal 0.1-1.2 [facility] Internal Medicine Work Phone: Comment on above: PATIENT WAS FASTINGC linical Information: ADD DRAW FEE [id number] ADD J [id number] PERFORMED BY: [address] [id number] Bilirubin.direct [Mass/Vol] 0.28 mg/dL Normal 0.00-0.40 [facility] Internal Medicine Work Phone: Comment on above: PATIENT WAS FASTINGC linical Information: ADD DRAW FEE [id number] ADD J [id number] PERFORMED BY: [place] [id number] [facility] [id number] Protein [Mass/Vol] 6.9 g/dL Normal 6.0-8.5 [facility] Internal Medicine Work Phone: Comment on above: PATIENT WAS FASTINGC linical Information: ADD DRAW FEE [id number] ADD J [id number] PERFORMED BY: BRIGITTE [facility] [id number] [facility] [employer] [facility] TechnologiesI[facility] Hospitalin [place] [id number] LIPID PANEL ([id number])Ordered B y: Barbara Fast on 08-23-2008 Cholesterol [Mass/Vol] 183 mg/dL Normal 100-199 [facility] Work Phone: Comment on above: PATIENT WAS FASTINGP ERFORMED BY: BRIGITTE [facility] [id number] [employer] TechnologiesIred[facility] Hospitalin [place] [id number] Cholesterol in HDL [Mass/Vol] 39 mg/dL Abnormal [facility] Work Phone: Comment on above: According to ATP-III Guidelines, HDL-C >59 mg/dL is considered anegative risk factor for CHD. PATIENT WAS FASTINGP ERFORMED BY: BRIGITTE [facility] [id number] [facility] [place] [id number] Cholesterol in LDL [Mass/Vol] 129 mg/dL Abnormal 0-99 [facility] Work Phone: Comment on above: PATIENT WAS FASTINGP ERFORMED BY: BRIGITTE Lab[facility]elsa [id number] [facility] [id number] Cholesterol in LDL/Cholesterol in HDL [Mass ratio] SPRCS Normal [facility] Work Phone: Comment on above: If initial LDL-columba sterol result is >100 mg/dL, assess forrisk factors. PATIENT WAS FASTINGP ERFORMED BY: BRIGITTE [facility]els[facility] [id number] [employer] TechnologiesIred[facility] Hospitalin [place] [id number] Cholesterol in LDL/Cholesterol in HDL [Mass ratio] 3.3 {ratio_units} Normal 0.0-3.6 [facility] Work Phone: Comment on above: PATIENT WAS FASTINGP ERFORMED BY: BRIGITTE [facility] [id number] [employer] Technologiesbl[place] [id number] Cholesterol in VLDL [Mass/Vol] 15 mg/dL Normal 5-40 [facility] Work Phone: Comment on above: PATIENT WAS FASTINGP ERFORMED BY: BRIGITTE [facility] [id number] [facility] [employer] TechnologiesI[facility] Hospitalin [place] [id number] Triglyceride [Mass/Vol] 75 mg/dL Normal 0-149 [facility] Work Phone: Comment on above: PATIENT WAS FASTINGP ERFORMED BY: [facility] [id number] [facility] [id number] Vital Signs Date Time Vital Sign Value Performing Clinician Facility 05-30-2024 07:12-0500 Body temperature 97.88 [degF] DR PRIYANK MALAVE MD [facility] 05-30-2024 07:12-0500 Diastolic Blood Pressure Non-Invasive 62 mm[Hg] DR PRIYANK MALAVE MD [facility] 05-30-2024 07:12-0500 Heart rate 53 /min DR PRIYANK MALAVE MD [facility] 05-30-2024 07:12-0500 Reason For Taking VItal Signs DR PRIYANK MALAVE MD [facility] 05-30-2024 07:12-0500 Respiratory rate 18 /min DR PRIYANK MALAVE MD [facility] 05-30-2024 07:12-0500 Systolic Blood Pressure Non-Invasive 104 mm[Hg] DR PRIYANK MALAVE MD [facility] 05-30-2024 04:18-0500 Body temperature 97.7 [degF] DR PRIYANK MALAVE MD [facility] 05-30-2024 04:18-0500 Diastolic Blood Pressure Non-Invasive 64 mm[Hg] DR PRIYANK MALAVE MD [facility] 05-30-2024 04:18-0500 Heart rate 62 /min DR PRIYANK MALAVE MD [facility] 05-30-2024 04:18-0500 Reason For Taking VItal Signs DR PRIYANK MALAVE MD [facility] 05-30-2024 04:18-0500 Respiratory rate 18 /min DR PRIYANK MALAVE MD [facility] 05-30-2024 04:18-0500 Systolic Blood Pressure Non-Invasive 107 mm[Hg] DR PRIYANK MALAVE MD [facility] 05-29-2024 23:16-0500 Body temperature 97.52 [degF] DR PRIYANK MALAVE MD [facility] 05-29-2024 23:16-0500 Diastolic Blood Pressure Non-Invasive 69 mm[Hg] DR PRIYANK MALAVE MD [facility] 05-29-2024 23:16-0500 Heart rate 75 /min DR PRIYANK MALAVE MD [facility] 05-29-2024 23:16-0500 Reason For Taking VItal Signs DR PRIYANK MALAVE MD [facility] 05-29-2024 23:16-0500 Respiratory rate 18 /min DR PRIYANK MALAVE MD [facility] 05-29-2024 23:16-0500 Systolic Blood Pressure Non-Invasive 118 mm[Hg] DR PRIYANK MALAVE MD [facility] 05-29-2024 18:51-0500 Heart rate 78 /min DR PRIYANK MALAVE MD [facility] 05-29-2024 15:19-0500 Heart rate 71 /min DR PRIYANK MALAVE MD [facility] 05-29-2024 14:17-0500 Body height 185.[address] PRIYANK MALAVE MD [facility] 05-29-2024 14:17-0500 Body weight 86.[address] PRIYANK MALAVE MD [facility] 05-29-2024 14:17-0500 Body weight 25.11 kg/m2 DR PRIYANK MALAVE MD [facility] 05-29-2024 13:54-[address] PRIYANK MALAVE MD [facility] 05-29-2024 13:54-[address] PRIYANK MALAVE MD [facility] 05-29-2024 13:20-0500 Heart rate 68 /min DR PRIYANK MALAVE MD [facility] 05-29-2024 13:05-0500 Heart rate 71 /min DR PRIYANK MALAVE MD [facility] 05-29-2024 12:20-0500 Body temperature 97.16 [degF] DR PRIYANK MALAVE MD [facility] 05-29-2024 12:20-0500 Respiratory Rate - Anes 0 br/min DR PRIYANK MALAVE MD [facility] 05-29-2024 12:15-0500 Respiratory Rate - Anes 29 br/min DR PRIYANK MALAVE MD [facility] 05-29-2024 12:10-0500 Respiratory Rate - Anes 19 br/min DR PRIYANK MALAVE MD [facility] 05-29-2024 11:45-0500 Body temperature 96.8 [degF] DR PRIYANK MALAVE MD [facility] 05-29-2024 11:30-0500 Body temperature 96.8 [degF] DR PRIYANK MALAVE MD [facility] 05-29-2024 11:15-0500 Body temperature 96.8 [degF] DR PRIYANK MALAVE MD [facility] 05-29-2024 08:43-0500 Body height 185.[address] PRIYANK MALAVE MD [facility] 05-29-2024 08:43-0500 Body temperature 97.88 [degF] DR PRIYANK MALAVE MD [facility] 05-29-2024 08:43-0500 Body weight 86.[address] PRIYANK MALAVE MD [facility] 05-29-2024 08:43-0500 Heart rate 58 /min DR PRIYANK MALAVE MD [facility] 05-15-2024 08:09-0500 Body height 185.42 cm Arpit Manuel NP-C Work Phone: [facility] 05-15-2024 08:09-0500 Body mass index (BMI) [Ratio] 25.7 kg/m2 Arpit Manuel NP-C Work Phone: [facility] 05-15-2024 08:09-0500 Body temperature 97.8 [degF] Arpit Manuel NP-C Work Phone: [facility] 05-15-2024 08:09-0500 Body weight 88.45 kg Arpit Manuel CLAIMS VICE PRESIDENT-C Work Phone: [facility] 05-15-2024 08:09-0500 Diastolic blood pressure 74 mm[Hg] Arpit Manuel NP-C Work Phone: [facility] 05-15-2024 08:09-0500 Heart rate 61 /min Arpit Manuel CLAIMS VICE PRESIDENT-C Work Phone: [facility] 05-15-2024 08:09-0500 Respiratory rate 18 /min Arpit Kaleb CLAIMS VICE PRESIDENT-C Work Phone: [facility] 05-15-2024 08:09-0500 SaO2% (BldA) [Mass fraction] 94 % Arpit Manuel CLAIMS VICE PRESIDENT-C Work Phone: [facility] 05-15-2024 08:09-0500 Systolic blood pressure 144 mm[Hg] Arpit Manuel CLAIMS VICE PRESIDENT-C Work Phone: [facility] 03-26-2024 10:30-[address] PRIYANK MALAVE MD [facility] 03-26-2024 10:30-[address] PRIYANK MALAVE MD [facility] 03-26-2024 10:30-0500 Body height 185.[address] PRIYANK MALAVE MD [facility] 03-26-2024 10:30-0500 Body weight 82.[address] PRIYANK MALAVE MD [facility] 03-26-2024 10:30-0500 Body weight 24 kg/m2 DR PRIYANK MALAVE MD [facility] 03-26-2024 10:30-0500 Diastolic Blood Pressure Non-Invasive 77 mm[Hg] DR PRIYANK MALAVE MD [facility] 03-26-2024 10:30-0500 Heart rate 58 /min DR PRIYANK MALAVE MD [facility] 03-26-2024 10:30-0500 Respiratory rate 18 /min DR PRIYANK MALAVE MD [facility] 03-26-2024 10:30-0500 Systolic Blood Pressure Non-Invasive 173 mm[Hg] DR PRIYANK MALAVE MD [facility] 10-04-2023 23:57-0400 Blood Pressure Cuff Size NIDAL CHOUJAA DO [facility] 10-04-2023 23:57-0400 Blood Pressure Location NIDAL CHOUJAA DO [facility] 10-04-2023 23:57-0400 Blood Pressure Method NIDAL CHOUJAA DO [facility] 10-04-2023 23:57-0400 Diastolic Blood Pressure Non-Invasive 78 mm[Hg] NIDAL CHOUJAA DO [facility] 10-04-2023 23:57-0400 Heart rate 68 /min NIDAL CHOUJAA DO [facility] 10-04-2023 23:57-0400 Mean blood pressure 105 mm[Hg] NIDAL CHOUJAA DO [facility] 10-04-2023 23:57-0400 Systolic Blood Pressure Non-Invasive 173 mm[Hg] NIDAL CHOUJAA DO [facility] 10-04-2023 23:17-0400 Blood Pressure Cuff Size NIDAL CHOUJAA DO [facility] 10-04-2023 23:17-0400 Blood Pressure Location NIDAL CHOUJAA DO [facility] 10-04-2023 23:17-0400 Blood Pressure Method NIDAL CHOUJAA DO [facility] 10-04-2023 23:17-0400 Diastolic Blood Pressure Non-Invasive 73 mm[Hg] NIDAL CHOUJAA DO [facility] 10-04-2023 23:17-0400 Heart rate 57 /min NIDAL CHOUJAA DO [facility] 10-04-2023 23:17-0400 Respiratory rate 18 /min NIDAL CHOUJAA DO [facility] 10-04-2023 23:17-0400 Systolic Blood Pressure Non-Invasive 183 mm[Hg] NIDAL CHOUJAA DO [facility] 10-04-2023 22:35-0400 Blood Pressure Cuff Size NIDAL CHOUJAA DO [facility] 10-04-2023 22:35-0400 Blood Pressure Location NIDAL CHOUJAA DO [facility] 10-04-2023 22:35-0400 Blood Pressure Method NIDAL CHOUJAA DO [facility] 10-04-2023 22:35-0400 Body height 185.4 cm NIDAL CHOUJAA DO [facility] 10-04-2023 22:35-0400 Body temperature 98.24 [degF] NIDAL CHOUJAA DO [facility] 10-04-2023 22:35-0400 Body weight 74.5 kg NIDAL CHOUJAA DO [facility] 10-04-2023 22:35-0400 Diastolic Blood Pressure Non-Invasive 75 mm[Hg] NIDAL CHOUJAA DO [facility] 10-04-2023 22:35-0400 Heart rate 71 /min NIDAL CHOUJAA DO [facility] 10-04-2023 22:35-0400 Reason For Taking VItal Signs NIDAL CHOUJAA DO [facility] 10-04-2023 22:35-0400 Respiratory rate 18 /min NIDAL CHOUJAA DO [facility] 10-04-2023 22:35-0400 Systolic Blood Pressure Non-Invasive 195 mm[Hg] NIDAL CHOUJAA DO [facility] 09-13-2023 00:49-0400 Diastolic blood pressure 63 mm[Hg] NIDAL CHOUJAA DO [facility] 09-13-2023 00:49-0400 Heart rate 78 /min NIDAL CHOUJAA DO [facility] 09-13-2023 00:49-0400 Systolic blood pressure 175 mm[Hg] NIDAL CHOUJAA DO [facility] 09-13-2023 00:12-0400 Blood Pressure Cuff Size NIDAL CHOUJAA DO [facility] 09-13-2023 00:12-0400 Blood Pressure Location NIDAL CHOUJAA DO [facility] 09-13-2023 00:12-0400 Blood Pressure Method NIDAL CHOUJAA DO [facility] 09-13-2023 00:12-0400 Body height 185.4 cm NIDAL CHOUJAA DO [facility] 09-13-2023 00:12-0400 Body temperature 97.16 [degF] NIDAL CHOUJAA DO [facility] 09-13-2023 00:12-0400 Body weight 78.5 kg NIDAL CHOUJAA DO [facility] 09-13-2023 00:12-0400 Diastolic Blood Pressure Non-Invasive 84 mm[Hg] NIDAL CHOUJAA DO [facility] 09-13-2023 00:12-0400 Heart rate 65 /min NIDAL CHOUJAA DO [facility] 09-13-2023 00:12-0400 Reason For Taking VItal Signs NIDAL CHOUJAA DO [facility] 09-13-2023 00:12-0400 Respiratory rate 16 /min NIDAL CHOUJAA DO [facility] 09-13-2023 00:12-0400 Systolic Blood Pressure Non-Invasive 204 mm[Hg] NIDAL CHOUJAA DO [facility] 12-08-2022 08:33-0400 Body height 181.61 cm Stephanie Anthony LPN [facility]; [facility] Work Phone: 12-08-2022 08:33-0400 Body mass index (BMI) [Ratio] 24.38 kg/m2 Stephanie Anthony LPN [facility]; [facility] Work Phone: 12-08-2022 08:33-0400 Body surface area Derived from formula 2.01 m2 Stephanie Anthony LPN [facility]; [facility] Work Phone: 12-08-2022 08:33-0400 Body temperature 98.3 [degF] Stephanie Anthony LPN [facility]; [facility] Work Phone: 12-08-2022 08:33-0400 Body weight 80.4 kg Stephanie Anthony LPN [facility]; [facility] Work Phone: 12-08-2022 08:33-0400 Diastolic blood pressure 68 mm[Hg] Stephanie Anthony LIGHT OUT EXAMINER [facility]; [facility] Work Phone: 12-08-2022 08:33-0400 Heart rate 58 /min Stephanie Anthony [facility]; [facility] Work Phone: 12-08-2022 08:33-0400 Respiratory rate 16 /min Stephanie Anthony [facility]; [facility] Work Phone: 12-08-2022 08:33-0400 SaO2% (BldA) [Mass fraction] 97 % Stephanie Anthony LIGHT OUT EXAMINER [facility]; [facility] Work Phone: 12-08-2022 08:33-0400 Systolic blood pressure 138 mm[Hg] Stephaniekeny Anthony [facility]; [facility] Work Phone: 08-31-2022 08:55-0400 Body height 181.61 cm [facility]; [facility] Work Phone: 08-31-2022 08:55-0400 Body mass index (BMI) [Ratio] 25.37 kg/m2 [facility]; [facility] Work Phone: 08-31-2022 08:55-0400 Body surface area [facility]ived from formula 2.05 [facility] Work Phone: 08-31-2022 08:55-0400 Body temperature 97.7 [degF] [facility]; [facility] Work Phone: 08-31-2022 08:55-0400 Body weight 83.69 kg [facility]; [facility] Work Phone: 08-31-2022 08:55-0400 Diastolic blood pressure 62 mm[Hg] Lizzy Manchak AUDIT TECH [facility]; [facility] Work Phone: 08-31-2022 08:55-0400 Heart rate 61 /min [facility]; [facility] Work Phone: 08-31-2022 08:55-0400 Respiratory rate 16 /min Lizzy [facility]; [facility] Work Phone: 08-31-2022 08:55-0400 SaO2% (BldA) [Mass fraction] 99 % Lizzy [facility]; [facility] Work Phone: 08-31-2022 08:55-0400 Systolic blood pressure 130 mm[Hg] Lizzy [facility]; [facility] Work Phone: 05-24-2022 13:35-0500 Body height 181.61 cm Barbara A Fast DO Work Phone: [facility]; [facility] Work Phone: 05-24-2022 13:35-0500 Body mass index (BMI) [Ratio] 24.55 kg/m2 Barbara A Fast DO Work Phone: [facility]; [facility] Work Phone: 05-24-2022 13:35-0500 Body surface area Derived from formula 2.02 m2 Barbara A Fast DO Work Phone: [facility]; [facility] Work Phone: 05-24-2022 13:35-0500 Body temperature 98.9 [degF] Barbara A Fast DO Work Phone: [facility]; [facility] Work Phone: 05-24-2022 13:35-0500 Body weight 80.97 kg Barbara A Fast DO Work Phone: [facility]; [facility] Work Phone: 05-24-2022 13:35-0500 Diastolic blood pressure 70 mm[Hg] Barbara A Fast DO Work Phone: [facility]; [facility] Work Phone: 05-24-2022 13:35-0500 Heart rate 73 /min Barbara A Fast DO Work Phone: [facility]; [facility] Work Phone: 05-24-2022 13:35-0500 Respiratory rate 16 /min Barbara A Fast DO Work Phone: [facility]; [facility] Work Phone: 05-24-2022 13:35-0500 Systolic blood pressure 132 mm[Hg] Barbara A Fast DO Work Phone: [facility]; [facility] Work Phone: 04-23-2022 13:43-0500 Body height 181.61 cm Lizzy Long [facility]; [facility] Work Phone: 04-23-2022 13:43-0500 Body mass index (BMI) [Ratio] 25.51 kg/m2 [facility]; [facility] Work Phone: 04-23-2022 13:43-0500 Body surface area Derived from formula 2.05 m2 Lizzy Long [facility]; [facility] Work Phone: 04-23-2022 13:43-0500 Body temperature 99.2 [degF] [facility]; [facility] Work Phone: Comment on above: Method: Thermal Scan 04-23-2022 13:43-0500 Body weight 84.14 kg [facility]; [facility] Work Phone: 04-23-2022 13:43-0500 Diastolic blood pressure 74 mm[Hg] [facility]; [facility] Work Phone: Comment on above: Patient Position: Sitting; Cuff Location : Left Arm; Cuff Size: Standard 04-23-2022 13:43-0500 Heart rate 83 /min Lizzy Long [facility]; [facility] Work Phone: Comment on above: Pattern: Regular 04-23-2022 13:43-0500 Respiratory rate 16 /min Lizzy Long [facility]; [facility] Work Phone: Comment on above: Pattern: Unlabored 04-23-2022 13:43-0500 SaO2% (BldA) [Mass fraction] 95 % Lizzy Long [facility]; [facility] Work Phone: Comment on above: Room air 04-23-2022 13:43-0500 Systolic blood pressure 134 mm[Hg] Lizzy Long [facility]; [facility] Work Phone: Comment on above: Patient Position: Sitting; Cuff Location : Left Arm; Cuff Size: Standard 03-15-2022 08:07-0500 Body height 181.61 cm Lizzy Long [facility]; [facility] Work Phone: 03-15-2022 08:07-0500 Body mass index (BMI) [Ratio] 25.51 kg/m2 Lizzy Long [facility]; [facility] Work Phone: 03-15-2022 08:07-0500 Body surface area Derived from formula 2.05 m2 Lizzy Long [facility]; [facility] Work Phone: 03-15-2022 08:07-0500 Body temperature 98 [degF] Lizzy Long [facility]; [facility] Work Phone: Comment on above: Method: Thermal Scan 03-15-2022 08:07-0500 Body weight 84.14 kg Lizzy Long [facility]; [facility] Work Phone: 03-15-2022 08:07-0500 Diastolic blood pressure 64 mm[Hg] Lizzy Long [facility]; [facility] Work Phone: Comment on above: Patient Position: Sitting; Cuff Location : Left Arm; Cuff Size: Standard 11-28-2022 08:07-0500 Heart rate 80 /min Lizzy Long [facility]; [facility] Work Phone: Comment on above: Pattern: Regular 03-15-2022 08:07-0500 Respiratory rate 16 /min Lizzy Long [facility]; [facility] Work Phone: Comment on above: Pattern: Unlabored 03-15-2022 08:07-0500 Systolic blood pressure 120 mm[Hg] Lizzy Long [facility]; [facility] Work Phone: Comment on above: Patient Position: Sitting; Cuff Location : Left Arm; Cuff Size: Standard 03-03-2022 15:18-0500 Body height 181.61 cm Lizzy Long [facility]; [facility] Work Phone: 03-03-2022 15:18-0500 Body mass index (BMI) [Ratio] 24.27 kg/m2 Lizzy Long [facility]; [facility] Work Phone: 03-03-2022 15:18-0500 Body surface area Derived from formula 2.01 m2 Lizzy Long [facility]; [facility] Work Phone: 03-03-2022 15:18-0500 Body temperature 97.5 [degF] Lizzy Long [facility]; [facility] Work Phone: Comment on above: Method: Thermal Scan 03-03-2022 15:18-0500 Body weight 80.06 kg Lizzy Long [facility]; [facility] Work Phone: 03-03-2022 15:18-0500 Diastolic blood pressure 72 mm[Hg] Lizzy Long [facility]; [facility] Work Phone: Comment on above: Patient Position: Sitting; Cuff Location : Left Arm; Cuff Size: Standard 03-03-2022 15:18-0500 Heart rate 76 /min Lizzybryan Long [facility]; [facility] Work Phone: Comment on above: Pattern: Regular 03-03-2022 15:18-0500 Respiratory rate 16 /min Lizzy Long [facility]; [facility] Work Phone: Comment on above: Pattern: Unlabored 03-03-2022 15:18-0500 SaO2% (BldA) [Mass fraction] 98 % Lizzy Long [facility]; [facility] Work Phone: Comment on above: Room air 03-03-2022 15:18-0500 Systolic blood pressure 120 mm[Hg] Lizzy Long [facility]; [facility] Work Phone: Comment on above: Patient Position: Sitting; Cuff Location : Left Arm; Cuff Size: Standard 01-19-2022 13:26-0400 Body height 181.61 cm Lizzy Long [facility]; [facility] Work Phone: 01-19-2022 13:26-0400 Body mass index (BMI) [Ratio] 24.27 kg/m2 Lizzy Long [facility]; [facility] Work Phone: 01-19-2022 13:26-0400 Body surface area Derived from formula 2.01 m2 Lizzy Long [facility]; [facility] Work Phone: 01-19-2022 13:26-0400 Body temperature 98.5 [degF] [place] [facility]; [facility] Work Phone: Comment on above: Method: Thermal Scan 01-19-2022 13:26-0400 Body weight 80.06 kg [facility] Work Phone: 01-19-2022 13:26-0400 Diastolic blood pressure 62 mm[Hg] Lizzy Long [facility] Internal Medicine; [facility] Work Phone: Comment on above: Patient Position: Sitting; Cuff Location : Left Arm; Cuff Size: Standard 01-19-2022 13:26-0400 Heart rate 73 /min Lizzy Long [facility]; [facility] Work Phone: Comment on above: Pattern: Regular 01-19-2022 13:26-0400 Respiratory rate 16 /min Lizzy Long [facility]; [facility] Work Phone: Comment on above: Pattern: Unlabored 01-19-2022 13:26-0400 Systolic blood pressure 120 mm[Hg] Lizzy Long [facility]; [facility] Work Phone: Comment on above: Patient Position: Sitting; Cuff Location : Left Arm; Cuff Size: Standard 01-05-2022 12:00-0400 Body mass index (BMI) [Ratio] 22.7 kg/m2 Dr. Barbara Mills Work Phone: [facility] Work Phone: 01-05-2022 09:00-0400 Body temperature 98 [degF] Dr. Barbara Mills Work Phone: [facility] Work Phone: 01-05-2022 09:00-0400 Diastolic blood pressure 64 mm[Hg] Dr. Barbara Mills Work Phone: [facility] Work Phone: 01-05-2022 09:00-0400 Heart rate 89 /min Dr. Barbara Mills Work Phone: [facility] Work Phone: 01-05-2022 09:00-0400 Respiratory rate 16 /min Dr. Barbara Mills Work Phone: [facility] Work Phone: 01-05-2022 09:00-0400 SaO2% (BldA) [Mass fraction] 97 % Dr. Barbara Mills Work Phone: [facility] Work Phone: 01-05-2022 09:00-0400 Systolic blood pressure 149 mm[Hg] Dr. Barbara Mills Work Phone: [facility] Work Phone: 01-04-2022 21:37-0400 Body height 185.[address] Barbara Mills Work Phone: [facility] Work Phone: 01-04-2022 21:37-0400 Body weight 78.[address] Barbara Mills Work Phone: [facility] Work Phone: 01-04-2022 21:14-0400 Body temperature 98.1 [degF] Dr. Barbara Mills Work Phone: [facility] Work Phone: 01-04-2022 21:14-0400 Diastolic blood pressure 78 mm[Hg] Dr. Barbara Mills Work Phone: [facility] Work Phone: 01-04-2022 21:14-0400 Heart rate 70 /min Dr. Barbara Mills Work Phone: [facility] Work Phone: 01-04-2022 21:14-0400 Respiratory rate 17 /min Dr. Barbara Mills Work Phone: [facility] Work Phone: 01-04-2022 21:14-0400 SaO2% (BldA) [Mass fraction] 99 % Dr. Barbara Mills Work Phone: [facility] Work Phone: 01-04-2022 21:14-0400 Systolic blood pressure 168 mm[Hg] Dr. Barbara Mills Work Phone: [facility] Work Phone: 01-04-2022 17:26-0400 Body height 185.[address] Barbara Mills Work Phone: [facility] Work Phone: 01-04-2022 17:26-0400 Body mass index (BMI) [Ratio] 22.9 kg/m2 Dr. Barbara Mills Work Phone: [facility] Work Phone: 01-04-2022 17:26-0400 Body weight 78.[address] Barbara Mills Work Phone: [facility] Work Phone: 12-29-2021 10:47-0400 Body height 181.61 cm Lizzy Long [facility] Internal Medicine; [facility] Work Phone: 12-29-2021 10:47-0400 Body mass index (BMI) [Ratio] 24.41 kg/m2 Lizzy Long [facility]; [facility] Work Phone: 12-29-2021 10:47-0400 Body surface area Derived from formula 2.01 m2 Lizzy Long [facility]; [facility] Work Phone: 12-29-2021 10:47-0400 Body temperature 97.6 [degF] Lizzy Long [facility]; [facility] Work Phone: Comment on above: Method: Thermal Scan 12-29-2021 10:47-0400 Body weight 80.51 kg Lizzy Long [facility]; [facility] Work Phone: 12-29-2021 10:47-0400 Diastolic blood pressure 70 mm[Hg] Lizzy Long [facility]; [facility] Work Phone: Comment on above: Patient Position: Sitting; Cuff Location : Left Arm; Cuff Size: Standard 12-29-2021 10:47-0400 Heart rate 64 /min Lizzy Long [facility]; [facility] Work Phone: Comment on above: Pattern: Regular 12-29-2021 10:47-0400 Respiratory rate 16 /min Lizzy Long [facility]; [facility] Work Phone: Comment on above: Pattern: Unlabored 12-29-2021 10:47-0400 Systolic blood pressure 124 mm[Hg] Lizzy Long [facility]; [facility] Work Phone: Comment on above: Patient Position: Sitting; Cuff Location : Left Arm; Cuff Size: Standard 12-11-2021 16:03-0400 Body temperature 97.7 [degF] Dr. Barbara Mills Work Phone: [facility] Work Phone: 12-11-2021 16:03-0400 Diastolic blood pressure 66 mm[Hg] Dr. Barbara Mills Work Phone: [facility] Work Phone: 12-11-2021 16:03-0400 Heart rate 82 /min Dr. Barbara Mills Work Phone: [facility] Work Phone: 12-11-2021 16:03-0400 Respiratory rate 16 /min Dr. Barbara Mills Work Phone: [facility] Work Phone: 12-11-2021 16:03-0400 SaO2% (BldA) [Mass fraction] 99 % Dr. Barbara Mills Work Phone: [facility] Work Phone: 12-11-2021 16:03-0400 Systolic blood pressure 154 mm[Hg] Dr. Barbara Mills Work Phone: [facility] Work Phone: 11-30-2021 09:03-0400 Body height 181.61 cm Lizzy Long [facility]; [facility] Work Phone: 11-30-2021 09:03-0400 Body mass index (BMI) [Ratio] 23.72 kg/m2 Lizzy Long [facility]; [facility] Work Phone: 11-30-2021 09:03-0400 Body surface area Derived from formula 1.99 m2 Lizzy Long [facility]; [facility] Work Phone: 11-30-2021 09:03-0400 Body temperature 97 [degF] Lizzy Long [facility]; [facility] Work Phone: Comment on above: Method: Thermal Scan 11-30-2021 09:03-0400 Body weight 78.25 kg Lizzy Long [facility]; [facility] Work Phone: 11-30-2021 09:03-0400 Diastolic blood pressure 62 mm[Hg] Lizzy Long [facility]; [facility] Work Phone: Comment on above: Patient Position: Sitting; Cuff Location : Left Arm; Cuff Size: Standard 11-30-2021 09:03-0400 Heart rate 72 /min Lizzy Long [facility]; [facility] Work Phone: Comment on above: Pattern: Regular 11-30-2021 09:03-0400 Respiratory rate 16 /min Lizzy Long [facility] Internal Medicine; [facility] Work Phone: Comment on above: Pattern: Unlabored 11-30-2021 09:03-0400 Systolic blood pressure 122 mm[Hg] Lizzy Long [facility]; [facility] Work Phone: Comment on above: Patient Position: Sitting; Cuff Location : Left Arm; Cuff Size: Standard 11-04-2021 10:09-0400 Body height 181.61 cm Lizzy Long [facility]; [facility] Work Phone: 11-04-2021 10:09-0400 Body mass index (BMI) [Ratio] 24 kg/m2 Lizzy Long [facility]; [facility] Work Phone: 11-04-2021 10:09-0400 Body surface area Derived from formula 2 m2 Lizzy Long [facility]; [facility] Work Phone: 11-04-2021 10:09-0400 Body temperature 97 [degF] Lizzy Long [facility]; [facility] Work Phone: Comment on above: Method: Thermal Scan 11-04-2021 10:090400 Body weight 79.15 kg Lizzy Long [facility]; [facility] Work Phone: 11-04-2021 10:09-0400 Diastolic blood pressure 70 mm[Hg] Lizzy Long [facility]; [facility] Work Phone: Comment on above: Patient Position: Sitting; Cuff Location : Left Arm; Cuff Size: Standard 11-04-2021 10:09-0400 Heart rate 70 /min Lizzy Long [facility]; [facility] Work Phone: Comment on above: Pattern: Regular 11-04-2021 10:09-0400 Respiratory rate 16 /min Lizzy Long [facility]; [facility] Work Phone: Comment on above: Pattern: Unlabored 11-04-2021 10:09-0400 Systolic blood pressure 118 mm[Hg] Lizzy Long [facility]; [facility] Work Phone: Comment on above: Patient Position: Sitting; Cuff Location : Left Arm; Cuff Size: Standard 07-06-2021 15:18-0400 Body height 181.61 cm Lizzy Long [facility]; [facility] Work Phone: 07-06-2021 15:18-0400 Body mass index (BMI) [Ratio] 24 kg/m2 [facility]; [facility] Work Phone: 07-06-2021 15:18-0400 Body surface area Derived from formula 2 m2 Lizzy Long [facility]; [facility] Work Phone: 07-06-2021 15:18-0400 Body temperature 97.1 [degF] [facility]; [facility] Work Phone: Comment on above: Method: Thermal Scan 07-06-2021 15:18-0400 Body weight 79.15 kg Lizzy Long [facility]; [facility] Work Phone: 07-06-2021 15:18-0400 Diastolic blood pressure 76 mm[Hg] Lizzy Mercedes [facility]; [facility] Work Phone: Comment on above: Patient Position: Sitting; Cuff Location : Left Arm; Cuff Size: Standard 07-06-2021 15:18-0400 Heart rate 77 /min Lizzy [employer] [facility] Medicine; [facility] Work Phone: Comment on above: Pattern: Regular 07-06-2021 15:18-0400 Respiratory rate 16 /min Lizzy [employer] [facility]; [facility] Work Phone: Comment on above: Pattern: Unlabored 07-06-2021 15:18-0400 Systolic blood pressure 120 mm[Hg] Lizzy [employer] [facility]; [facility] Work Phone: Comment on above: Patient Position: Sitting; Cuff Location : Left Arm; Cuff Size: Standard 06-10-2021 08:13-0500 Body height 181.61 cm Lizzy LeóneRe[employer] [facility] Medicine; [facility] Work Phone: Comment on above: 140/76 on patients wrist BP cuff 06-10-2021 08:13-0500 Body mass index (BMI) [Ratio] 24.81 kg/m2 Lizzy [employer] [facility] Medicine; [facility] Work Phone: Comment on above: 140/76 on patients wrist BP cuff 06-10-2021 08:13-0500 Body surface area Derived from formula 2.03 m2 Lizzy LeóneRe[employer] [facility]; [facility] Work Phone: Comment on above: 140/76 on patients wrist BP cuff 06-10-2021 08:13-0500 Body temperature 97.1 [degF] Lizzy Romel[employer]Re[employer] [facility]; [facility] Work Phone: Comment on above: Method: Thermal Scan 140/76 on patients w rist BP cuff 06-10-2021 08:13-0500 Body weight 81.82 kg Lizzy Freitaschak [employer] [facility]; [facility] Work Phone: Comment on above: 140/76 on patients wrist BP cuff 06-10-2021 08:13-0500 Diastolic blood pressure 62 mm[Hg] Lizzy Long [facility]; [facility] Work Phone: Comment on above: Patient Position: Sitting; Cuff Location : Left Arm; Cuff Size: Standard 140/76 on patients w rist BP cuff 06-10-2021 08:13-0500 Heart rate 73 /min [facility] Medicine; [facility] Work Phone: Comment on above: Pattern: Regular 140/76 on patients w rist BP cuff 06-10-2021 08:13-0500 Respiratory rate 16 /[facility] Work Phone: Comment on above: Pattern: Unlabored 140/76 on patients w rist BP cuff 06-10-2021 08:13-0500 Systolic blood pressure 124 mm[Hg] [facility]; [facility] Work Phone: Comment on above: Patient Position: Sitting; Cuff Location : Left Arm; Cuff Size: Standard 140/76 on patients w rist BP cuff 06-01-2021 10:42-0500 Body height 181.61 cm Nati [facility] Internal Medicine; [facility] Work Phone: Comment on above: left arm was 138/68 home wrist cuff was reading 168/97 area but audibly heard the bp reported manually ay 138/68-142/70 [facility] 06-01-2021 10:42-0500 Body mass index (BMI) [Ratio] 25.72 kg/m2 [facility] Internal Medicine; [facility] Work Phone: Comment on above: left arm was 138/68 home wrist cuff was reading 168/97 area but audibly heard the bp reported manually ay 138/68-142/70 [facility] 06-01-2021 10:42-0500 Body surface area Derived from formula 2.06 m2 [facility] Comprehensive Internal Medicine; [facility] Work Phone: Comment on above: left arm was 138/68 home wrist cuff was reading 168/97 area but audibly heard the bp reported manually ay 138/68-142/70 [facility] 06-01-2021 10:42-0500 Body weight 84.82 kg Nati Ruibo [facility] Internal Medicine; [facility] Work Phone: Comment on above: left arm was 138/68 home wrist cuff was reading 168/97 area but audibly heard the bp reported manually ay 138/68-142/[address] 06-01-2021 10:42-0500 Diastolic blood pressure 70 mm[Hg] Nati Rubio [facility] Internal Medicine; [facility] Work Phone: Comment on above: Patient Position: Sitting; Cuff Location : Right Arm; Cuff Size: Standard left arm was 138/68 home wrist cuff was reading 168/97 area but audibly heard the bp reported manually ay 138/68-142/[address] 06-01-2021 10:42-0500 Systolic blood pressure 142 mm[Hg] Nati Rubio [facility] Internal Medicine; [facility] Work Phone: Comment on above: Patient Position: Sitting; Cuff Location : Right Arm; Cuff Size: Standard left arm was 138/68 home wrist cuff was reading 168/97 area but audibly heard the bp reported manually ay 138/68-142/[address],[facility] 02-06-2021 09:48-0400 Body height 181.61 cm [facility] Internal Medicine; [facility] Work Phone: 02-06-2021 09:48-0400 Body mass index (BMI) [Ratio] 25.72 kg/m2 [facility] Internal Medicine; [facility] Work Phone: 02-06-2021 09:48-0400 Body surface area Derived from formula 2.06 m2 [facility] Internal Medicine; [facility] Work Phone: 02-06-2021 09:48-0400 Body temperature 97.1 [degF] Lizzy Long [facility]; [facility] Work Phone: Comment on above: Method: Thermal Scan 02-06-2021 09:48-0400 Body weight 84.82 kg Lizzy Long [facility]; [facility] Work Phone: 02-06-2021 09:48-0400 Diastolic blood pressure 70 mm[Hg] Lizzy Long [facility]; [facility] Work Phone: Comment on above: Patient Position: Sitting; Cuff Location : Left Arm; Cuff Size: Standard 02-06-2021 09:48-0400 Heart rate 64 /min Lizzy Long [facility]; [facility] Work Phone: Comment on above: Pattern: Regular 02-06-2021 09:48-0400 Respiratory rate 16 /min Lizzy Long [facility]; [facility] Work Phone: Comment on above: Pattern: Unlabored 02-06-2021 09:48-0400 Systolic blood pressure 128 mm[Hg] Lizzy Long [facility]; [facility] Work Phone: Comment on above: Patient Position: Sitting; Cuff Location : Left Arm; Cuff Size: Standard 04-28-2020 09:08-0500 BMI (Body Mass Index) 26.68 kg/m2 Lizzy Long [facility]; [facility] Work Phone: 04-28-2020 09:08-0500 Body Temperature 97.1 [degF] Lizzy Long [facility]; [facility] Work Phone: Comment on above: Method: Thermal Scan 04-28-2020 09:08-0500 Body weight 88 kg Lizzy Long [facility]; [facility] Work Phone: 04-28-2020 09:08-0500 BP Diastolic 70 mm[Hg] Lizzy Long [facility]; [facility] Work Phone: Comment on above: Patient Position: Sitting; Cuff Location : Left Arm; Cuff Size: Standard 04-28-2020 09:08-0500 BP Systolic 120 mm[Hg] Lizzy Long [facility]; [facility] Work Phone: Comment on above: Patient Position: Sitting; Cuff Location : Left Arm; Cuff Size: Standard 04-28-2020 09:08-0500 BSA (Body Surface Area) 2.09 m2 Lizzy Long [facility]; [facility] Work Phone: 04-28-2020 09:08-0500 Height 181.61 cm Lizzy Long [facility]; [facility] Work Phone: 04-28-2020 09:08-0500 Pulse (Heart Rate) 68 /min Lizzy Long [facility]; [facility] Work Phone: Comment on above: Pattern: Regular 04-28-2020 09:08-0500 Respiratory Rate 16 /min Lizzy Long [facility]; [facility] Work Phone: Comment on above: Pattern: Unlabored 03-18-2020 11:23-0500 BMI (Body Mass Index) 25.85 kg/m2 Lizzy Long [facility] Medicine Work Phone: 03-18-2020 11:23-0500 Body Temperature 97.3 [degF] Lizzy Long [facility] Work Phone: Comment on above: Method: Thermal Scan 03-18-2020 11:23-0500 Body weight 85.28 kg Lizzy Long [facility] Medicine Work Phone: 03-18-2020 11:23-0500 BP Diastolic 60 mm[Hg] Lizzy Long [facility] Medicine Work Phone: Comment on above: Patient Position: Sitting; Cuff Location : Left Arm; Cuff Size: Standard 03-18-2020 11:23-0500 BP Systolic 120 mm[Hg] Lizzy Long [employer] [facility] Work Phone: Comment on above: Patient Position: Sitting; Cuff Location : Left Arm; Cuff Size: Standard 03-18-2020 11:23-0500 BSA (Body Surface Area) 2.06 m2 Lizzy Long [facility] Internal Medicine Work Phone: 03-18-2020 11:23-0500 Height 181.61 cm Lizzy Long [facility] Internal Medicine Work Phone: 03-18-2020 11:23-0500 Pulse (Heart Rate) 70 /min Lizzy Long [facility] Internal Medicine Work Phone: Comment on above: Pattern: Regular 03-18-2020 11:23-0500 Respiratory Rate 16 /min Lizzy Long [facility] Internal Medicine Work Phone: Comment on above: Pattern: Unlabored 01-02-2020 12:46-0400 BMI (Body Mass Index) 25.85 kg/m2 Lizzy Long [facility] Internal Medicine Work Phone: 01-02-2020 12:46-0400 Body Temperature 97.5 [degF] Lizzy Long [facility] Internal Medicine Work Phone: Comment on above: Method: Thermal Scan 01-02-2020 12:46-0400 Body weight 85.28 kg Lizzy Long [facility] Internal Medicine Work Phone: 01-02-2020 12:46-0400 BP Diastolic 70 mm[Hg] Lizzy Long [facility] Internal Medicine Work Phone: Comment on above: Patient Position: Sitting; Cuff Location : Left Arm; Cuff Size: Standard 01-02-2020 12:46-0400 BP Systolic 132 mm[Hg] Lizzy Long [facility] Internal Medicine Work Phone: Comment on above: Patient Position: Sitting; Cuff Location : Left Arm; Cuff Size: Standard 01-02-2020 12:46-0400 BSA (Body Surface Area) 2.06 m2 Lizzy Long [facility] Internal Medicine Work Phone: 01-02-2020 12:46-0400 Height 181.61 cm Lizzy Long [facility] Internal Medicine Work Phone: 01-02-2020 12:46-0400 Pulse (Heart Rate) 78 /min Lizzy Long [facility] Internal Medicine Work Phone: Comment on above: Pattern: Regular 01-02-2020 12:46-0400 Respiratory Rate 16 /min Lizzy Long [facility] Internal Medicine Work Phone: Comment on above: Pattern: Unlabored 10-24-2019 07:47-0400 BMI (Body Mass Index) 25.85 kg/m2 Lizzy Long [facility] Internal Medicine Work Phone: 10-24-2019 07:47-0400 Body Temperature 97.3 [degF] Lizzy Long [facility] Internal Medicine Work Phone: Comment on above: Method: Temporal 10-24-2019 07:47-0400 Body weight 85.28 kg Lizzy Long [facility] Internal Medicine Work Phone: 10-24-2019 07:47-0400 BP Diastolic 70 mm[Hg] Lizzy Long [facility] Internal Medicine Work Phone: Comment on above: Patient Position: Sitting; Cuff Location : Left Arm; Cuff Size: Standard 10-24-2019 07:47-0400 BP Systolic 122 mm[Hg] Lizzy Long [facility] Internal Medicine Work Phone: Comment on above: Patient Position: Sitting; Cuff Location : Left Arm; Cuff Size: Standard 10-24-2019 07:47-0400 BSA (Body Surface Area) 2.06 m2 Lizzy Long [facility] Internal Medicine Work Phone: 10-24-2019 07:47-0400 Height 181.61 cm Lizzy Long [facility] Internal Medicine Work Phone: 10-24-2019 07:47-0400 Pulse (Heart Rate) 72 /min Lizzy Long [facility] Internal Medicine Work Phone: Comment on above: Pattern: Regular 10-24-2019 07:47-0400 Respiratory Rate 16 /min Lizzy Long [facility] Internal Medicine Work Phone: Comment on above: Pattern: Unlabored 07-10-2019 14:07-0400 BMI (Body Mass Index) 26.82 kg/m2 Lizzy Long [facility] Internal Medicine Work Phone: 07-10-2019 14:07-0400 Body Temperature 97.6 [degF] Lizzy Long [facility] Internal Medicine Work Phone: Comment on above: Method: Temporal 07-10-2019 14:07-0400 Body weight 88.45 kg Lizzy Long [facility] Internal Medicine Work Phone: 07-10-2019 14:07-0400 BP Diastolic 70 mm[Hg] Lizzy Long [facility] Internal Medicine Work Phone: Comment on above: Patient Position: Sitting; Cuff Location : Left Arm; Cuff Size: Standard 07-10-2019 14:07-0400 BP Systolic 115 mm[Hg] Lizzy Long [facility] Internal Medicine Work Phone: Comment on above: Patient Position: Sitting; Cuff Location : Left Arm; Cuff Size: Standard 07-10-2019 14:07-0400 BSA (Body Surface Area) 2.1 m2 Lizzy Long [facility] Internal Medicine Work Phone: 07-10-2019 14:07-0400 Height 181.61 cm Lizzy Long [facility] Internal Medicine Work Phone: 07-10-2019 14:07-0400 Pulse (Heart Rate) 75 /min Lizzy Long [facility] Internal Medicine Work Phone: Comment on above: Pattern: Regular 07-10-2019 14:07-0400 Pulse Oximetry 98 % Iris Torres [facility] Internal Medicine Work Phone: Comment on above: Room air 07-10-2019 14:07-0400 Respiratory Rate 16 /min Lizyz Long [facility] Internal Medicine Work Phone: Comment on above: Pattern: Unlabored 07-10-2019 14:07-0400 SaO2% (BldA) [Mass fraction] 98 % Lizzy Long [facility]; [facility] Work Phone: Comment on above: Room air 12-11-2015 12:07-0400 BMI (Body Mass Index) 25.3 kg/m2 Carissa Smith RN [facility] Work Phone: 12-11-2015 12:07-0400 Body Temperature 97.7 [degF] Carissa Smith RN [facility] Work Phone: Comment on above: Method: Oral 12-11-2015 12:07-0400 Body weight 83.46 kg Carissa Smith RN [facility] Work Phone: 12-11-2015 12:07-0400 BP Diastolic 78 mm[Hg] Carissa Smith RN [facility] Work Phone: Comment on above: Patient Position: Sitting; Cuff Location : Left Arm; Cuff Size: Large 12-11-2015 12:07-0400 BP Systolic 120 mm[Hg] Carissa Smith RN [facility] Work Phone: Comment on above: Patient Position: Sitting; Cuff Location : Left Arm; Cuff Size: Large 12-11-2015 12:07-0400 BSA (Body Surface Area) 2.05 m2 Carissa Smith RN [facility] Work Phone: 12-11-2015 12:07-0400 Height 181.61 cm Carissa Smith RN [facility] Work Phone: 12-11-2015 12:07-0400 Pulse (Heart Rate) 71 /min Carissa Smith RN [facility] Work Phone: Comment on above: Pattern: Regular 12-11-2015 12:07-0400 Pulse Oximetry 98 % Iris Torres [facility] Work Phone: Comment on above: Room air 12-11-2015 12:07-0400 Respiratory Rate 18 /min Carissa Smith RN [facility] Work Phone: Comment on above: Pattern: Unlabored 12-11-2015 12:07-0400 SaO2% (BldA) [Mass fraction] 98 % Carissa Smith RN [facility]; [facility] Work Phone: Comment on above: Room air 12-08-2015 09:54-0400 BMI (Body Mass Index) 25.3 kg/m2 Carmen Paulinarb [employer] [facility] Internal Medicine Work Phone: 12-08-2015 09:54-0400 Body Temperature 98.4 [degF] Carmen Slarb [employer] [facility] Work Phone: 12-08-2015 09:54-0400 Body weight 83.46 kg Carmen Paulinarb [employer] [facility] Work Phone: 12-08-2015 09:54-0400 BP Diastolic 78 mm[Hg] Carmen Slarb [employer] [facility] Work Phone: Comment on above: Patient Position: Sitting; Cuff Location : Left Arm; Cuff Size: Standard 12-08-2015 09:54-0400 BP Systolic 120 mm[Hg] Carmen Slarb [employer] [facility] Work Phone: Comment on above: Patient Position: Sitting; Cuff Location : Left Arm; Cuff Size: Standard 12-08-2015 09:54-0400 BSA (Body Surface Area) 2.05 m2 Carmen Paulinarb [employer] [facility] Work Phone: 12-08-2015 09:54-0400 Height 181.61 cm Carmen Paulinarb [employer] [facility] Work Phone: 12-08-2015 09:54-0400 Pulse (Heart Rate) 81 /min Carmen Paulinarb [employer] Comprehensiv e Internal Medicine Work Phone: Comment on above: Pattern: Regular 12-08-2015 09:54-0400 Pulse Oximetry 98 % Iris Melissa [facility] Work Phone: Comment on above: Room air 12-08-2015 09:54-0400 Respiratory Rate 16 /min Carmen Paulinarb [employer] [facility] Work Phone: Comment on above: Pattern: Unlabored 12-08-2015 09:54-0400 SaO2% (BldA) [Mass fraction] 98 % Carmen Slarb [employer] [facility]; [facility] Work Phone: Comment on above: Room air 12-01-2015 08:35-0400 BMI (Body Mass Index) 26.13 kg/m2 Carissa Smith RN [facility] Work Phone: Comment on above: Hearing wnkDr. Paulson and had a glaucom a test done 12-01-2015 08:35-0400 Body weight 86.18 kg Carissa Smith RN [facility] Work Phone: Comment on above: Hearing wnkDr. Paulson and had a glaucom a test done 12-01-2015 08:35-0400 BP Diastolic 78 mm[Hg] Carissa Smith RN [facility] Work Phone: Comment on above: Patient Position: Sitting; Cuff Location : Left Arm; Cuff Size: Large Hearing wnkDr. Perki ns and had a glaucoma test done 12-01-2015 08:35-0400 BP Systolic 136 mm[Hg] Carissa Smiht RN [facility] Work Phone: Comment on above: Patient Position: Sitting; Cuff Location : Left Arm; Cuff Size: Large Hearing wnkDr. Perki ns and had a glaucoma test done 12-01-2015 08:35-0400 BSA (Body Surface Area) 2.07 m2 Carissa Smith RN [facility] Work Phone: Comment on above: Hearing wnkDr. Paulson and had a glaucom a test done 12-01-2015 08:35-0400 Height 181.61 cm Carissa Smith RN [facility] Work Phone: Comment on above: Hearing wnkDr. Paulson and had a glaucom a test done 12-01-2015 08:35-0400 Pulse (Heart Rate) 78 /min Carissa Smith RN [facility] Work Phone: Comment on above: Pattern: Regular Hearing wnkDr. Perki ns and had a glaucoma test done 12-01-2015 08:35-0400 Pulse Oximetry 95 % Iris Torres [facility] Work Phone: Comment on above: Room air Hearing wnkDr. Perki ns and had a glaucoma test done 12-01-2015 08:35-0400 Respiratory Rate 18 /min Carissa Smith RN [facility] Work Phone: Comment on above: Pattern: Unlabored Hearing wnkDr. Rohini larios and had a glaucoma test done 12-01-2015 08:35-0400 SaO2% (BldA) [Mass fraction] 95 % Carissa Smith RN [facility]; [facility] Work Phone: Comment on above: Room air Hearing wnRomanarNolan Nova ns and had a glaucoma test done 11-10-2015 09:05-0400 BMI (Body Mass Index) 25.85 kg/m2 Carmen Slarb [employer] [facility] Internal Medicine Work Phone: 11-10-2015 09:05-0400 Body Temperature 97.6 [degF] Carmen Slarb [employer] [facility] Work Phone: 11-10-2015 09:05-0400 Body weight 85.28 kg Carmen Slarb [employer] [facility] Work Phone: 11-10-2015 09:05-0400 BP Diastolic 78 mm[Hg] Carmen Slarb [employer] [facility] Work Phone: Comment on above: Patient Position: Sitting; Cuff Location : Left Arm; Cuff Size: Standard 11-10-2015 09:05-0400 BP Systolic 122 mm[Hg] Carmen Slarb [employer] EXAM[employer]ER [facility] Work Phone: Comment on above: Patient Position: Sitting; Cuff Location : Left Arm; Cuff Size: Standard 11-10-2015 09:05-0400 BSA (Body Surface Area) 2.06 m2 Carmen Slarb [employer] [facility] Work Phone: 11-10-2015 09:05-0400 Height 181.61 cm Carmen Slarb [employer]ER [facility] Work Phone: 11-10-2015 09:05-0400 Pulse (Heart Rate) 63 /min Carmen Slarb [employer] [facility]prehens[facility] e Internal Medicine Work Phone: Comment on above: Pattern: Regular 11-10-2015 09:05-0400 Pulse Oximetry 96 % Iris Torres [facility] Work Phone: Comment on above: Room air 11-10-2015 09:05-0400 Respiratory Rate 16 /min Carmen Slabryan EDWARD [facility] Internal Medicine Work Phone: Comment on above: Pattern: Unlabored 11-10-2015 09:05-0400 SaO2% (BldA) [Mass fraction] 96 % Carmen Emiliano [facility] Internal Medicine; [facility] Work Phone: Comment on above: Room air 03-07-2015 07:25-0500 BMI (Body Mass Index) 25.85 kg/m2 [facility] Internal Medicine Work Phone: 03-07-2015 07:25-0500 Body Temperature 97.5 [degF] Dimple Bryant [facility] Internal Medicine Work Phone: Comment on above: Method: Temporal 03-07-2015 07:25-0500 Body weight 85.28 kg Dimple Bryant [facility] Internal Medicine Work Phone: 03-07-2015 07:25-0500 BP Diastolic 80 mm[Hg] Dimple Bryant [facility] Internal Medicine Work Phone: Comment on above: Patient Position: Sitting; Cuff Location : Left Arm; Cuff Size: Standard 03-07-2015 07:25-0500 BP Systolic 118 mm[Hg] Dimple Bryant [facility] Internal Medicine Work Phone: Comment on above: Patient Position: Sitting; Cuff Location : Left Arm; Cuff Size: Standard 03-07-2015 07:25-0500 BSA (Body Surface Area) 2.06 m2 Dimple Bryant [facility] Internal Medicine Work Phone: 03-07-2015 07:25-0500 Height 181.61 cm Dimple Bryant [facility] Internal Medicine Work Phone: 03-07-2015 07:25-0500 Pulse (Heart Rate) 60 /min Dimple Bryant [facility] Internal Medicine Work Phone: Comment on above: Pattern: Regular 03-07-2015 07:25-0500 Pulse Oximetry 98 % Iris Torres [facility] Internal Medicine Work Phone: Comment on above: Room air 03-07-2015 07:25-0500 Respiratory Rate 16 /min Dimple Annette [facility] Internal Medicine Work Phone: Comment on above: Pattern: Unlabored 03-07-2015 07:25-0500 SaO2% (BldA) [Mass fraction] 98 % Dimple Bryant [facility] Internal Medicine; [facility] Internal Medicine Work Phone: Comment on above: Room air 07-08-2014 09:11-0400 BMI (Body Mass Index) 25.85 kg/m2 Dimple Lizarragaen sive Internal Medicine Work Phone: 07-08-2014 09:11-0400 Body Temperature 96.3 [degF] Dimple Bryant [facility] Internal Medicine Work Phone: 07-08-2014 09:11-0400 Body weight 85.28 kg Dimple Bryant [facility] Internal Medicine Work Phone: 07-08-2014 09:11-0400 BP Diastolic 74 mm[Hg] Dimple Bryant [facility] Internal Medicine Work Phone: Comment on above: Patient Position: Sitting; Cuff Location : Left Arm; Cuff Size: Standard 07-08-2014 09:11-0400 BP Systolic 136 mm[Hg] Dimple Bryant [facility] Internal Medicine Work Phone: Comment on above: Patient Position: Sitting; Cuff Location : Left Arm; Cuff Size: Standard 07-08-2014 09:11-0400 BSA (Body Surface Area) 2.06 m2 Dimple Bryant [facility] Internal Medicine Work Phone: 07-08-2014 09:11-0400 Height 181.61 cm Dimple Bryant [facility] Internal Medicine Work Phone: 07-08-2014 09:11-0400 Pulse (Heart Rate) 72 /min Dimple Bryant [facility] Internal Medicine Work Phone: Comment on above: Pattern: Regular 07-08-2014 09:11-0400 Respiratory Rate 16 /min Dimple Bryant [facility] Internal Medicine Work Phone: Comment on above: Pattern: Unlabored 11-19-2013 09:16-0400 BMI (Body Mass Index) 25.85 kg/m2 Dimple Bryant [facility] Internal Medicine Work Phone: 11-19-2013 09:16-0400 Body Temperature 97.8 [degF] Dimple Bryant [facility] Internal Medicine Work Phone: 11-19-2013 09:16-0400 Body weight 85.28 kg Dimple Bryant [facility] Internal Medicine Work Phone: 11-19-2013 09:16-0400 BP Diastolic 72 mm[Hg] Dimple Bryant [facility] Internal Medicine Work Phone: Comment on above: Patient Position: Sitting; Cuff Location : Left Arm; Cuff Size: Standard 11-19-2013 09:16-0400 BP Systolic 126 mm[Hg] Dimple Bryant [facility] Internal Medicine Work Phone: Comment on above: Patient Position: Sitting; Cuff Location : Left Arm; Cuff Size: Standard 11-19-2013 09:16-0400 BSA (Body Surface Area) 2.06 m2 Dimple Bryant [facility] Internal Medicine Work Phone: 11-19-2013 09:16-0400 Height 181.61 cm Dimple Bryant [facility] Internal Medicine Work Phone: 11-19-2013 09:16-0400 Pulse (Heart Rate) 64 /min Dimple Bryant [facility] Internal Medicine Work Phone: Comment on above: Pattern: Regular 11-19-2013 09:16-0400 Respiratory Rate 16 /min Dimple Bryant [facility] Internal Medicine Work Phone: Comment on above: Pattern: Unlabored 04-25-2013 09:07-0500 BMI (Body Mass Index) 25.58 kg/m2 Dimple Bryant [facility] Internal Medicine Work Phone: 04-25-2013 09:07-0500 Body Temperature 96.7 [degF] Dimple Bryant [facility] Internal Medicine Work Phone: 04-25-2013 09:07-0500 Body weight 84.37 kg Dimple Bryant [facility] Internal Medicine Work Phone: 04-25-2013 09:07-0500 BP Diastolic 74 mm[Hg] Dimple Bryant [facility] Internal Medicine Work Phone: Comment on above: Patient Position: Sitting; Cuff Location : Left Arm; Cuff Size: Large 04-25-2013 09:07-0500 BP Systolic 128 mm[Hg] Dimple Bryant [facility] Internal Medicine Work Phone: Comment on above: Patient Position: Sitting; Cuff Location : Left Arm; Cuff Size: Large 04-25-2013 09:07-0500 BSA (Body Surface Area) 2.06 m2 Dimple Bryant [facility] Internal Medicine Work Phone: 04-25-2013 09:07-0500 Height 181.61 cm Dimple Bryant [facility] Internal Medicine Work Phone: 04-25-2013 09:07-0500 Pulse (Heart Rate) 68 /min Dimple Bryant [facility] Internal Medicine Work Phone: Comment on above: Pattern: Regular 04-25-2013 09:07-0500 Respiratory Rate 16 /min Dimple Bryant [facility] Internal Medicine Work Phone: Comment on above: Pattern: Unlabored 08-14-2012 09:20-0400 BMI (Body Mass Index) 25.72 kg/m2 Lizzy Long [facility] Internal Medicine Work Phone: 08-14-2012 09:20-0400 Body weight 84.82 kg Lizzy Long [facility] Internal Medicine Work Phone: 08-14-2012 09:20-0400 BP Diastolic 68 mm[Hg] Lizzy Long [facility] Internal Medicine Work Phone: Comment on above: Patient Position: Sitting; Cuff Location : Left Arm; Cuff Size: Standard 08-14-2012 09:20-0400 BP Systolic 124 mm[Hg] [facility]: Comment on above: Patient Position: Sitting; Cuff Location : Left Arm; Cuff Size: Standard 08-14-2012 09:20-0400 BSA (Body Surface Area) 2.06 m2 [facility] Work Phone: 08-14-2012 09:20-0400 Height 181.61 cm [facility]: 08-14-2012 09:20-0400 Pulse (Heart Rate) 69 /min [facility]: Comment on above: Pattern: Regular 08-14-2012 09:20-0400 Respiratory Rate 16 /min [facility] Work [facility]: Comment on above: Pattern: Unlabored 04-03-2012 13:16-0500 BMI (Body Mass Index) 26.96 kg/m2 Dimple Bryant [facility] Internal Medicine Work Phone: 04-03-2012 13:16-0500 Body Temperature 98.3 [degF] Dimple Bryant [facility] Internal Medicine Work Phone: 04-03-2012 13:16-0500 Body weight 88.91 kg Dimple Bryant [facility] Internal Medicine Work Phone: 04-03-2012 13:16-0500 BP Diastolic 72 mm[Hg] Dimple Bryant [facility] Internal Medicine Work Phone: Comment on above: Patient Position: Sitting; Cuff Location : Left Arm; Cuff Size: Large 04-03-2012 13:16-0500 BP Systolic 124 mm[Hg] Dimple Bryant [facility] Internal Medicine Work Phone: Comment on above: Patient Position: Sitting; Cuff Location : Left Arm; Cuff Size: Large 04-03-2012 13:16-0500 BSA (Body Surface Area) 2.1 m2 Dimple Bryant [facility] Internal Medicine Work Phone: 04-03-2012 13:16-0500 Height 181.61 cm Dimple Bryant [facility] Internal Medicine Work Phone: 04-03-2012 13:16-0500 Pulse (Heart Rate) 72 /min Dimple Bryant [facility] Internal Medicine Work Phone: Comment on above: Pattern: Regular 04-03-2012 13:16-0500 Respiratory Rate 18 /min Dimple Bryant [facility] Internal Medicine Work Phone: Comment on above: Pattern: Unlabored 12-21-2011 09:32-0400 BMI (Body Mass Index) 27.09 kg/m2 Iris Torres [facility] Internal Medicine Work Phone: 12-21-2011 09:32-0400 Body Temperature 98.4 [degF] Iris Torres [facility] Internal Medicine Work Phone: Comment on above: Method: Oral 12-21-2011 09:32-0400 Body weight 89.36 kg Iris Torres [facility] Internal Medicine Work Phone: 12-21-2011 09:32-0400 BP Diastolic 70 mm[Hg] Iris Torres [facility] Internal Medicine Work Phone: Comment on above: Patient Position: Sitting; Cuff Location : Left Arm; Cuff Size: Standard 12-21-2011 09:32-0400 BP Systolic 120 mm[Hg] Iris Torres [facility] Internal Medicine Work Phone: Comment on above: Patient Position: Sitting; Cuff Location : Left Arm; Cuff Size: Standard 12-21-2011 09:32-0400 BSA (Body Surface Area) 2.11 m2 Iris Torres [facility] Internal Medicine Work Phone: 12-21-2011 09:32-0400 Height 181.61 cm Iris Torres [facility] Internal Medicine Work Phone: 12-21-2011 09:32-0400 Pulse (Heart Rate) 66 /min Iris Torres [facility] Internal Medicine Work Phone: Comment on above: Pattern: Regular 12-03-2011 13:44-0400 BMI (Body Mass Index) 27.09 kg/m2 Katiana Pabon RN [facility] Internal Medicine Work Phone: 12-03-2011 13:44-0400 Body Temperature 98.2 [degF] Katiana Pabon RN [facility] Work Phone: Comment on above: Method: Temporal 12-03-2011 13:44-0400 Body weight 89.36 kg Katiana Pabon RN [facility] Work Phone: 12-03-2011 13:44-0400 BP Diastolic 78 mm[Hg] Katiana Pabon RN [facility] Work Phone: Comment on above: Patient Position: Sitting; Cuff Location : Left Arm; Cuff Size: Standard 12-03-2011 13:44-0400 BP Systolic 160 mm[Hg] Katiana Pabon RN [facility] Work Phone: Comment on above: Patient Position: Sitting; Cuff Location : Left Arm; Cuff Size: Standard 12-03-2011 13:44-0400 BSA (Body Surface Area) 2.11 m2 Katiana Pabon RN [facility] Work Phone: 12-03-2011 13:44-0400 Height 181.61 cm Katiana Pabon RN [facility] Work Phone: 12-03-2011 13:44-0400 Pulse (Heart Rate) 100 /min Katiana Pabon RN [facility] Work Phone: Comment on above: Pattern: Regular 12-03-2011 13:44-0400 Pulse Oximetry 94 % Iris Torres [facility] Work Phone: Comment on above: Room air 12-03-2011 13:44-0400 Respiratory Rate 16 /min Katiana Pabon RN [facility] Work Phone: Comment on above: Pattern: Unlabored 12-03-2011 13:44-0400 SaO2% (BldA) [Mass fraction] 94 % Katiana Pabon RN [facility]; [facility] Work Phone: Comment on above: Room air 06-30-2011 09:58-0400 BMI (Body Mass Index) 27.09 kg/m2 Dimple Bryant [facility] Internal Medicine Work Phone: 06-30-2011 09:58-0400 Body Temperature 98.3 [degF] Dimple Bryant [facility] Internal Medicine Work Phone: 06-30-2011 09:58-0400 Body weight 89.36 kg Dimple Bryant [facility] Internal Medicine Work Phone: 06-30-2011 09:58-0400 BP Diastolic 70 mm[Hg] Dimple Bryant [facility] Internal Medicine Work Phone: Comment on above: Patient Position: Sitting; Cuff Location : Left Arm; Cuff Size: Large 06-30-2011 09:58-0400 BP Systolic 136 mm[Hg] Dimple Bryant [facility] Internal Medicine Work Phone: Comment on above: Patient Position: Sitting; Cuff Location : Left Arm; Cuff Size: Large 06-30-2011 09:58-0400 BSA (Body Surface Area) 2.11 m2 Dimple Bryant [facility] Internal Medicine Work Phone: 06-30-2011 09:58-0400 Height 181.61 cm Dimple Bryant [facility] Internal Medicine Work Phone: 06-30-2011 09:58-0400 Pulse (Heart Rate) 68 /min Dimple Bryant [facility] Internal Medicine Work Phone: Comment on above: Pattern: Regular 06-30-2011 09:58-0400 Respiratory Rate 16 /min Dimple Bryant [facility] Internal Medicine Work Phone: Comment on above: Pattern: Unlabored 10-26-2010 09:40-0400 BMI (Body Mass Index) 26.82 kg/m2 Dimple Bryant [facility] Internal Medicine Work Phone: 10-26-2010 09:40-0400 Body Temperature 96.1 [degF] Dimple Bryant [facility] Internal Medicine Work Phone: 10-26-2010 09:40-0400 Body weight 88.45 kg Dimple Lopezvereniceboy [facility] Internal Medicine Work Phone: 10-26-2010 09:40-0400 BP Diastolic 72 mm[Hg] Dimple Lopezgisselle [facility] Internal Medicine Work Phone: Comment on above: Patient Position: Sitting; Cuff Location : Left Arm; Cuff Size: Large 10-26-2010 09:40-0400 BP Systolic 122 mm[Hg] Dimple Lopezgisselle [facility] Internal Medicine Work Phone: Comment on above: Patient Position: Sitting; Cuff Location : Left Arm; Cuff Size: Large 10-26-2010 09:40-0400 BSA (Body Surface Area) 2.1 m2 Dimple nAnette [facility] Internal Medicine Work Phone: 10-26-2010 09:40-0400 Height 181.61 cm Dimple Annette [facility] Internal Medicine Work Phone: 10-26-2010 09:40-0400 Pulse (Heart Rate) 76 /min Dimple Annette [facility] Internal Medicine Work Phone: Comment on above: Pattern: Regular 10-26-2010 09:40-0400 Respiratory Rate 16 /min Dimple Annette [facility] Internal Medicine Work Phone: Comment on above: Pattern: Unlabored 04-29-2010 11:20-0500 Body Temperature 96.8 [degF] Dimple Annette [facility] Internal Medicine Work Phone: 04-29-2010 11:20-0500 Body weight 89.36 kg Dimple Annette [facility] Internal Medicine Work Phone: 04-29-2010 11:20-0500 BP Diastolic 86 mm[Hg] Dimple Annette [facility] Internal Medicine Work Phone: Comment on above: Patient Position: Sitting; Cuff Location : Left Arm; Cuff Size: Large 04-29-2010 11:20-0500 BP Systolic 150 mm[Hg] Dimple Annette [facility] Internal Medicine Work Phone: Comment on above: Patient Position: Sitting; Cuff Location : Left Arm; Cuff Size: Large 04-29-2010 11:20-0500 Pulse (Heart Rate) 76 /min Dimple Annette [facility] Internal Medicine Work Phone: Comment on above: Pattern: Regular 04-29-2010 11:20-0500 Respiratory Rate 18 /min Dimple Annette [facility] Internal Medicine Work Phone: Comment on above: Pattern: Unlabored 12-11-2009 09:09-0400 Body Temperature 96.8 [degF] [facility] Work Phone: Comment on above: Method: Oral 12-11-2009 09:09-0400 Body weight 87.09 kg [facility] Work Phone: 12-11-2009 09:09-0400 BP Diastolic 88 mm[Hg] [facility] Work Phone: Comment on above: Patient Position: Sitting; Cuff Location : Left Arm; Cuff Size: Standard 12-11-2009 09:09-0400 BP Systolic 140 mm[Hg] [facility] Work Phone: Comment on above: Patient Position: Sitting; Cuff Location : Left Arm; Cuff Size: Standard 12-11-2009 09:09-0400 Pulse (Heart Rate) 64 /min [facility] Work Phone: Comment on above: Pattern: Regular 12-11-2009 09:09-0400 Respiratory Rate 18 /min [facility] Work Phone: Comment on above: Pattern: Unlabored 04-25-2009 09:03-0500 Body weight 88.91 kg Argenis Ricketts RN [facility] Work Phone: 04-25-2009 09:03-0500 BP Diastolic 88 mm[Hg] Argenis Ricketts RN [facility] Work Phone: Comment on above: Patient Position: Sitting; Cuff Location : Left Arm; Cuff Size: Standard 04-25-2009 09:03-0500 BP Systolic 140 mm[Hg] Argenis Ricketts RN [facility] Work Phone: Comment on above: Patient Position: Sitting; Cuff Location : Left Arm; Cuff Size: Standard 04-25-2009 09:03-0500 Pulse (Heart Rate) 80 /min Argenis Ricketts RN [facility] Work Phone: Comment on above: Pattern: Regular 04-25-2009 09:03-0500 Respiratory Rate 18 /min Argenis Ricketts RN [facility] Work Phone: Comment on above: Pattern: Unlabored 09-06-2008 06:57-0400 BMI (Body Mass Index) 27.04 kg/m2 Dimple Bowman [facility] Internal Medicine Work Phone: 09-06-2008 06:57-0400 Body Temperature 95.7 [degF] Dimple Bryant [facility] Internal Medicine Work Phone: Comment on above: Method: Undefined 09-06-2008 06:57-0400 Body weight 89.81 kg Dimple Bryant [facility] Internal Medicine Work Phone: 09-06-2008 06:57-0400 BP Diastolic 86 mm[Hg] Dimple Bryant [facility] Internal Medicine Work Phone: Comment on above: Patient Position: Sitting; Cuff Location : Left Arm; Cuff Size: Standard 09-06-2008 06:57-0400 BP Systolic 152 mm[Hg] Dimple Bryant [facility] Internal Medicine Work Phone: Comment on above: Patient Position: Sitting; Cuff Location : Left Arm; Cuff Size: Standard 09-06-2008 06:57-0400 BSA (Body Surface Area) 2.12 m2 Dimple Braynt [facility] Internal Medicine Work Phone: 09-06-2008 06:57-0400 Head Circumference 0 cm Iris Zaragozaon [facility] Internal Medicine Work Phone: 09-06-2008 06:57-0400 Head Occipital-frontal circumference 0 cm Dimple Gross Internal Medicine; [facility] Work Phone: 09-06-2008 06:57-0400 Height 182.25 cm Dimple Bryant [facility] Internal Medicine Work Phone: 09-06-2008 06:57-0400 Pulse (Heart Rate) 72 /min Dimple Flinner [facility] Internal Medicine Work Phone: Comment on above: Pattern: Regular 09-06-2008 06:57-0400 Respiratory Rate 16 /min Dimple Bryant [facility] Internal Medicine Work Phone: Comment on above: Pattern: Undefined 03-08-2008 13:15-0500 BMI (Body Mass Index) 26.27 kg/m2 [facility] Work Phone: 03-08-2008 13:15-0500 Body Temperature 97 [degF] [facility] Internal Medicine Work Phone: Comment on above: Method: Oral 03-08-2008 13:15-0500 Body weight 89.08 kg [facility] Internal Medicine Work Phone: 03-08-2008 13:15-0500 BP Diastolic 72 mm[Hg] [facility] Internal Medicine Work Phone: Comment on above: Patient Position: Sitting; Cuff Location : Right Arm; Cuff Size: Standard 03-08-2008 13:15-0500 BP Systolic 122 mm[Hg] [facility] Internal Medicine Work Phone: Comment on above: Patient Position: Sitting; Cuff Location : Right Arm; Cuff Size: Standard 03-08-2008 13:15-0500 BSA (Body Surface Area) 2.12 m2 [facility] Internal Medicine Work Phone: 03-08-2008 13:15-0500 Head Circumference 0 cm Iris Torres [facility] Internal Medicine Work Phone: 03-08-2008 13:15-0500 Head Occipital-frontal circumference 0 cm [facility] Internal Medicine; [facility] Internal Medicine Work Phone: 03-08-2008 13:15-0500 Height 184.15 cm [facility] Internal Medicine Work Phone: 03-08-2008 13:15-0500 Pulse (Heart Rate) 72 /min [facility] Internal Medicine Work Phone: Comment on above: Pattern: Regular 03-08-2008 13:15-0500 Respiratory Rate 18 /min [facility] Internal Medicine Work Phone: Comment on above: Pattern: Unlabored 03-31-2007 07:03-0500 Body Temperature 97.8 [degF] Argenis Ricketts RN [facility] Work Phone: Comment on above: Method: Oral 03-31-2007 07:03-0500 Body weight 90.72 kg Argenis Ricketts RN [facility] Work Phone: 03-31-2007 07:03-0500 BP Diastolic 78 mm[Hg] Argenis Ricketts RN [facility] Work Phone: Comment on above: Patient Position: Sitting; Cuff Location : Right Arm; Cuff Size: Standard 03-31-2007 07:03-0500 BP Systolic 150 mm[Hg] Argenis Ricketts RN [facility] Work Phone: Comment on above: Patient Position: Sitting; Cuff Location : Right Arm; Cuff Size: Standard 03-31-2007 07:03-0500 Head Circumference 0 cm Iris Melissa [facility] Work Phone: 03-31-2007 07:03-0500 Head Occipital-frontal circumference 0 cm Argenis Ricketts RN [facility]; [facility] Work Phone: 03-31-2007 07:03-0500 Height 0 cm Argenis Ricketts RN [facility] Work Phone: 03-31-2007 07:03-0500 Pulse (Heart Rate) 64 /min Argenis Ricketts RN [facility] Work Phone: Comment on above: Pattern: Regular 03-31-2007 07:03-0500 Respiratory Rate 16 /min Argenis Ricketts RN [facility] Work Phone: Comment on above: Pattern: Unlabored 07-05-2006 09:48-0400 BMI (Body Mass Index) 26.22 kg/m2 Dimple Bryant [facility] Internal Medicine Work Phone: 07-05-2006 09:48-0400 Body Temperature 97.5 [degF] Dimple Bryant [facility] Internal Medicine Work Phone: Comment on above: Method: Oral 07-05-2006 09:48-0400 Body weight 88.91 kg Dimple Annette [facility] Internal Medicine Work Phone: 07-05-2006 09:48-0400 BP Diastolic 94 mm[Hg] Dimple Annette [facility] Internal Medicine Work Phone: Comment on above: Patient Position: Sitting; Cuff Location : Left Arm; Cuff Size: Standard 07-05-2006 09:48-0400 BP Systolic 160 mm[Hg] Dimple Annette [facility] Internal Medicine Work Phone: Comment on above: Patient Position: Sitting; Cuff Location : Left Arm; Cuff Size: Standard 07-05-2006 09:48-0400 BSA (Body Surface Area) 2.12 m2 Dimple Annette [facility] Internal Medicine Work Phone: 07-05-2006 09:48-0400 Head Circumference 0 cm Iris Torres [facility] Internal Medicine Work Phone: 07-05-2006 09:48-0400 Head Occipital-frontal circumference 0 cm Dimple Gross [facility]; [facility] Work Phone: 07-05-2006 09:48-0400 Height 184.15 cm Dimple Bryant [facility] Internal Medicine Work Phone: 07-05-2006 09:48-0400 Pulse (Heart Rate) 68 /min Dimple Bryant [facility] Medicine Work Phone: Comment on above: Pattern: Regular 07-05-2006 09:48-0400 Respiratory Rate 16 /min Dimple Bryant [facility] Internal Medicine Work Phone: Comment on above: Pattern: Unlabored Encounters Encounter Date Encounter Type Care Provider Facility Start: 11-20-2024 ambulatory Arpit Manuel Facility :[facility] Start: 08-20-2024 End: 08-20-2024 ambulatory Arpit Manuel CLAIMS VICE PRESIDENT-C Work Phone: [facility] Work Phone: Start: 08-20-2024 End: 08-20-2024 Patient encounter procedure Arpit Manuel CLAIMS VICE PRESIDENT-C -Cardiovascular Services Work Phone: Start: 08-20-2024 End: 08-20-2024 ambulatory Arpit Manuel Facility:[facility] Start: 06-12-2024 End: 08-02-2024 ambulatory ARPIT MANUEL PARTS ANALYST-DOUGH MAKER Facility:[facility] Start: 05-29-2024 End: 05-30-[address] PRIYANK MALAVE MD Facility:[facility] Start: 05-29-2024 End: 05-30-[address] PRIYANK MALAVE MD [facility] Start: 05-18-2024 End: 05-18-2024 ambulatory ARPIT MANUEL [employer]S ANALYST-DOUGH MAKER Facility:[facility] Start: 05-18-2024 End: 05-18-[address] PRIYANK MALAVE MD [facility] Start: 05-15-2024 Preoperative state Arpit barker CLAIMS VICE PRESIDENT-C Work Phone: [facility] Start: 05-15-2024 End: 05-15-[address] Favian Snyder DO [facility] Pulmonary Medicine Work Phone: Start: 05-15-2024 End: 05-15-[address] Favian Snyder DO [facility] Start: 05-15-2024 End: 05-15-2024 ambulatory Arpit Manuel Facility:[facility] Start: 05-07-2024 Encounter for other preprocedural examination Arpit Manuel [facility] Start: 04-20-2024 End: 04-20-2024 ambulatory Arpit Manuel Facility:[facility] Start: 04-13-2024 End: 04-13-2024 ambulatory Arpit Manuel Facility:[facility] Start: 04-01-2024 End: 04-01-2024 ambulatory Arpit Manuel Facility:[facility] Start: 03-26-2024 End: 03-26-2024 ambulatory ARPIT MANUEL [employer]S ANALYST[employer]KER Facility:[facility] Start: 03-26-2024 End: 03-26-[address] PRIYANK MALAVE MD [facility] Start: 03-26-2024 End: 03-26-[address] PRIYANK MALAVE MD [facility] Start: 03-26-2024 End: 03-26-2024 ambulatory ARPIT MANUEL [employer]S ANALYST-DOUGH MAKER Facility:[facility] Start: 03-23-2024 ambulatory Arpit Kaleb Facility :[facility] Start: 03-23-2024 End: 03-23-2024 ambulatory Arpit Manuel Facility:[facility] Start: 02-22-2024 End: 02-22-2024 ambulatory Arpit Kaleb Facility:[facility] Start: 01-31-2024 End: 01-31-2024 ambulatory Arpit Manuel Facility:[facility] Start: 01-18-2024 End: 01-18-2024 ambulatory Barbara Mills Facility:[facility] Start: 12-16-2023 End: 12-16-2023 ambulatory Nithin Valdovinos Facility:[facility] Start: 12-01-2023 End: 12-01-2023 ambulatory Olman Wright Facility:[facility] Start: 10-04-2023 End: 10-05-2023 Emergency department patient visit SHILO MARSH DO [facility] Start: 09-13-2023 End: 09-13-2023 Emergency department patient visit SHILO MARSH DO [facility] Start: 09-07-2023 End: 10-18-[address] BARBARA MILLS DO Facility:[facility] Start: 09-07-2023 End: 10-18-[address] BARBARA MILLS DO [facility] Start: 06-21-2023 End: 06-21-2023 ambulatory [facility] Work Phone: Start: 06-21-2023 End: 06-21-2023 Patient encounter procedure [facility]-Laboratory, Specimen Work Phone: Start: 05-11-2023 End: 05-11-2023 ambulatory [facility] Work Phone: Start: 05-11-2023 End: 05-11-2023 Patient encounter procedure [facility]-Radiology, [place] Work Phone: Start: 04-20-2023 End: 04-20-2023 Subsequent hospital visit by physician James Regan [address] [place] [address] Comment on above: 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 Start: 04-20-2023 End: 04-20-2023 ambulatory BARBARA Adina MILLS [facility] Start: 12-10-2022 Barbara Fast DO Work Phone: [facility] Start: 12-08-2022 End: 12-08-2022 Office outpatient visit 25 minutes Barbara Fast DO Work Phone: [facility] Start: 08-31-2022 ambulatory Barbara A Fast DO [facility] Start: 08-31-2022 End: 08-31-2022 Office outpatient visit 25 minutes Barbara Fast DO Work Phone: [facility] Start: 08-31-2022 Barbara Fast DO Work Phone: [facility] Start: 08-16-2022 End: 08-16-2022 Barbara Fast DO Work Phone: [facility] Start: 07-12-2022 End: 07-12-2022 Barbara Fast DO Work Phone: [facility] Start: 06-21-2022 End: 06-21-2022 Barbara Fast DO Work Phone: [facility] Start: 06-15-2022 End: 06-15-2022 Office outpatient visit 15 minutes Barbara Fast DO Work Phone: [facility] Start: 06-09-2022 End: 06-09-[address] Barbara Mills Work Phone: [facility] Work Phone: Start: 06-09-2022 End: 06-09-[address] Barbara Mills Work Phone: [facility]-Pulmonary Services/Neurology Start: 06-04-2022 Non-patient / Non-visit Dr. Mullen Fast Work Phone: [facility] Start: 06-04-2022 End: 06-04-2022 Barbara Mills DO Work Phone: [facility] Start: 06-04-2022 End: 06-04-[address] Barbara Mills Work Phone: [facility] Work Phone: Start: 06-04-2022 End: 06-04-[address] Barbara Mills Work Phone: [facility]-Cardiovascular Services Start: 06-03-2022 Barbara Mills DO Work Phone: [facility] Start: 06-03-2022 End: 06-03-2022 ambulatory TARAN COWAN Facility:[facility] Start: 06-03-2022 End: 06-03-2022 Patient encounter procedure Taran Cowan Work Phone: Podiatry Comment on above: Porokeratosis (Prima ry Dx); Onychomycosis; Pain in toe of left foot; Pain in toe of right foot Start: 05-24-2022 End: 05-24-2022 Barbara Fast DO Work Phone: [facility] Start: 05-03-2022 End: 05-03-2022 Nursing evaluation of patient and report Barbara Fast DO Work Phone: [facility] Start: 05-03-2022 End: 05-03-2022 Barbara Fast DO Work Phone: [facility] Start: 05-03-2022 End: 05-03-2022 Phone Encounter Barbara Fast DO Work Phone: [facility] Start: 05-03-2022 End: 05-03-2022 Barbara Fast DO Work Phone: [facility] Start: 04-26-2022 End: 04-26-2022 Phone Encounter Barbara Fast DO Work Phone: [facility] Start: 04-26-2022 End: 04-26-2022 Barbara Fast DO Work Phone: [facility] Start: 04-23-2022 End: 04-25-2022 Office outpatient visit 10 minutes Barbara Fast DO Work Phone: [facility] Start: 03-18-2022 End: 03-18-2022 ambulatory [facility] Facility:[facility] Start: 03-15-2022 Review Barbara Fast DO Work Phone: [facility] Start: 03-15-2022 End: 03-15-2022 Office outpatient visit 15 minutes Barbara Fast DO Work Phone: [facility] Start: 03-03-2022 End: 03-04-2022 Office outpatient visit 15 minutes Barbara Fast DO Work Phone: [facility] Start: 03-03-2022 Review Barbara Fast DO Work Phone: [facility] Start: 02-16-2022 End: 02-16-2022 Phone Encounter Barbara Fast DO Work Phone: [facility] Start: 02-16-2022 End: 02-16-2022 Barbara Fast DO Work Phone: [facility] Start: 01-25-2022 End: 01-25-2022 Phone Encounter Barbara Fast DO Work Phone: [facility] Start: 01-25-2022 End: 01-25-2022 Barbara Fast DO Work Phone: [facility] Start: 01-21-2022 Review Barbara Fast DO Work Phone: [facility] Start: 01-19-2022 End: 01-25-2022 Office outpatient visit 15 minutes Barbara Fast DO Work Phone: [facility] Start: 01-19-2022 Lan Mills DO Work Phone: [facility] Start: 01-18-2022 End: 01-18-[address] Barbara Mills Work Phone: [facility] Work Phone: Start: 01-18-2022 End: 01-18-[address] Barbara Mills Work Phone: [facility] Start: 01-14-2022 End: 01-14-[address] Barbara Mills Work Phone: [facility] Work Phone: Start: 01-14-2022 End: 01-14-[address] Barbara Mills Work Phone: [facility]-Outpatient Bone Densitometry Start: 01-05-2022 Non-patient / Non-visit Dr. Vazquez Work Phone: [facility] Inpatient Physicians Start: 01-04-2022 Non-patient / Non-visit Dr. Mullen Fast Work Phone: [facility] Start: 01-04-2022 End: 01-05-2022 Evaluation and management of inpatient Dr. Barbara Mills Work Phone: [facility]-Progressive Care Unit Start: 12-29-2021 End: 12-29-2021 Office outpatient visit 15 minutes Barbara Mills DO Work Phone: [facility] Start: 12-28-2021 End: 12-28-2021 ambulatory TARAN COWAN Facility:[facility] Start: 12-28-2021 End: 12-28-2021 Patient encounter procedure Taran Cowan Work Phone: Podiatry Comment on above: Porokeratosis (Prima ry Dx) Start: 12-23-2021 End: 12-23-[address] Barbara Mills Work Phone: [facility] Work Phone: Start: 12-23-2021 End: 12-23-[address] Barbara Mills Work Phone: [facility] Start: 12-23-2021 End: 12-25-2021 Phone Encounter Barbara Fast DO Work Phone: [facility] Start: 12-23-2021 End: 12-25-2021 Barbara Fast DO Work Phone: [facility] Start: 12-11-2021 End: 12-11-[address] Barbara Mills Work Phone: [facility] Start: 12-02-2021 End: 12-02-2021 Phone Encounter Barbara Fast DO Work Phone: [facility] Start: 12-02-2021 End: 12-02-2021 Barbara Fast DO Work Phone: [facility] Start: 11-30-2021 End: 11-30-[address] Barbara Mills Work Phone: [facility] Start: 11-30-2021 End: 11-30-2021 Office outpatient visit 25 minutes Barbara Fast DO Work Phone: [facility] Start: 11-30-2021 Review Barbara Fast DO Work Phone: [facility] Start: 11-04-2021 End: 11-04-2021 Office outpatient visit 15 minutes Barbara Fast DO Work Phone: [facility] Start: 10-26-2021 End: 10-26-2021 Phone Encounter Barbara Fast DO Work Phone: [facility] Start: 10-26-2021 End: 10-26-2021 Barbara Fast DO Work Phone: [facility] Start: 07-06-2021 End: 07-06-2021 Office outpatient visit 25 minutes Barbara Fast DO Work Phone: [facility] Start: 07-02-2021 End: 07-02-2021 Patient encounter procedure [facility] Start: 06-19-2021 End: 06-19-2021 Phone Encounter Barbara Fast DO Work Phone: [facility] Start: 06-19-2021 End: 06-19-2021 Barbara Fast DO Work Phone: [facility] Start: 06-19-2021 End: 06-19-2021 Phone Encounter Barbara Fast DO Work Phone: [facility] Start: 06-19-2021 End: 06-19-2021 Barbara Fast DO Work Phone: [facility] Start: 06-10-2021 Review Barbara Fast DO Work Phone: [facility] Start: 06-10-2021 End: 02-16-2022 Patient encounter procedure Barbara Fast DO Work Phone: [facility] Start: 06-10-2021 End: 02-16-2022 Barbara Fast DO Work Phone: [facility] Start: 06-01-2021 End: 06-01-2021 Office outpatient visit 5 minutes Barbara Fast DO Work Phone: [facility] Start: 05-27-2021 Review Barbara Fast DO Work Phone: [facility] Start: 04-08-2021 End: 04-08-2021 Office outpatient visit 5 minutes Barbara Fast DO Work Phone: [facility] Start: 02-18-2021 End: 02-18-2021 Phone Encounter Barbara Fast DO Work Phone: [facility] Start: 02-18-2021 End: 02-18-2021 Barbara Fast DO Work Phone: [facility] Start: 02-12-2021 End: 02-12-2021 Phone Encounter Barbara Fast DO Work Phone: [facility] Start: 02-12-2021 End: 02-12-2021 Barbara Fast DO Work Phone: [facility] Start: 02-06-2021 End: 02-09-2021 Office outpatient visit 25 minutes Barbara Fast DO Work Phone: [facility] Start: 01-19-2021 End: 01-19-2021 Phone Encounter Barbara Fast DO Work Phone: [facility] Start: 01-19-2021 End: 01-19-2021 Barbara Fast DO Work Phone: [facility] Start: 12-31-2020 End: 01-02-2021 Office outpatient visit 5 minutes Barbara Fast DO Work Phone: [facility] Start: 09-08-2020 End: 09-08-2020 Phone Encounter Barbara Fast DO Work Phone: [facility] Start: 09-08-2020 End: 09-08-2020 Barbara Fast DO Work Phone: [facility] Start: 05-05-2020 End: 05-05-2020 Lab Order Barbara Fast [facility] Start: 05-05-2020 End: 05-05-2020 Barbara Fast DO Work Phone: [facility] Start: 04-28-2020 End: 04-28-2020 Office outpatient visit 25 minutes Barbara Fast [facility] Start: 03-18-2020 End: 03-18-2020 Office outpatient visit 15 minutes Barbara Fast [facility] Start: 01-02-2020 End: 01-10-2020 Office outpatient visit 5 minutes Barbara Fast [facility] Start: 01-02-2020 Review Barbara Fast [facility] Start: 11-23-2019 End: 11-23-2019 Lab Order Barbara Fast [facility] Start: 11-23-2019 End: 11-23-2019 Barbara Fast DO Work Phone: [facility] Start: 10-31-2019 End: 10-31-2019 Phone Encounter Barbara Fast [facility] Start: 10-31-2019 End: 10-31-2019 Barbara Fast DO Work Phone: [facility] Start: 10-24-2019 End: 11-16-2021 Office outpatient visit 25 minutes Barbara Fast DO Work Phone: [facility] Start: 10-24-2019 Review Iris Torres [facility] Internal Medicine Start: 10-09-2019 End: 10-09-2019 Phone Encounter Iris Gross [facility] Start: 10-09-2019 End: 10-09-2019 Barbara Fast DO Work Phone: [facility] Start: 07-17-2019 End: 07-17-2019 Office outpatient visit 25 minutes Iris Torres [facility] Internal Medicine Start: 07-10-2019 End: 07-11-2019 Office outpatient new 45 minutes Iris Torres [facility] Internal Medicine Start: 12-11-2015 End: 12-11-2015 Office outpatient visit 5 minutes Iris Gross [facility] Start: 12-08-2015 End: 12-08-2015 Office outpatient visit 5 minutes Iris Gross [facility] Start: 12-01-2015 End: 12-01-2015 Periodic preventive med est patient 65yrs& older Iris Gross [facility] Start: 12-01-2015 End: 12-01-2015 Physical examination Barbara Fast DO Work Phone: [facility] Start: 11-10-2015 End: 11-10-2015 Office outpatient visit 15 minutes Iris Torres [facility] Internal Medicine Start: 03-07-2015 End: 03-09-2015 Office outpatient visit 25 minutes Iris Gross [facility] Start: 03-07-2015 End: 03-09-2015 Pre-operative examination, unspecified Barbara Fast DO Work Phone: [facility] Start: 07-08-2014 End: 07-08-2014 Office outpatient visit 15 minutes Iris Gross [facility] Start: 11-19-2013 End: 11-19-2013 Office outpatient visit 25 minutes Iris Torres [facility] Internal Medicine Start: 04-25-2013 End: 04-25-2013 Patient encounter procedure Iris Gross [facility] Start: 04-25-2013 End: 04-25-2013 Barbara Fast DO Work Phone: [facility] Start: 08-14-2012 End: 08-14-2012 Patient encounter procedure Iris Torres [facility] [facility] Start: 08-14-2012 End: 08-14-2012 Barbara Fast DO Work Phone: [facility] Start: 04-03-2012 End: 04-03-2012 Patient encounter procedure Iris Torres [facility] Start: 04-03-2012 End: 04-03-2012 Barbara Fast DO Work Phone: [facility] Start: 03-24-2012 End: 03-24-2012 Phone Encounter Iris Torres [facility] Start: 03-24-2012 End: 03-24-2012 Barbara Fast DO Work Phone: [facility] Start: 03-13-2012 End: 03-13-2012 Patient encounter procedure Iris [facility] Start: 03-13-2012 End: 03-13-2012 Barbara Fast DO Work Phone: [facility] Start: 12-21-2011 End: 12-21-2011 Office outpatient visit 10 minutes I[facility] Start: 12-03-2011 End: 12-03-2011 Office outpatient visit 15 minutes Iris Torres [facility] Start: 06-30-2011 End: 06-30-2011 Patient encounter procedure Iris [facility] Start: 06-30-2011 End: 06-30-2011 Barbara Fast DO Work Phone: [facility] Start: 01-12-2011 End: 01-12-2011 Patient encounter procedure Iris Torres [facility] Start: 01-12-2011 End: 01-12-2011 Barbara Fast DO Work Phone: [facility] Start: 10-26-2010 End: 10-26-2010 Patient encounter procedure Iris Torres [facility] Start: 10-26-2010 End: 10-26-2010 Barbara Fast DO Work Phone: [facility] Start: 04-29-2010 End: 04-29-2010 Patient encounter procedure Iris Torres [facility] Start: 04-29-2010 End: 04-29-2010 Barbara Fast DO Work Phone: [facility] Start: 04-01-2010 End: 04-01-2010 Phone Encounter [facility] Start: 04-01-2010 End: 04-01-2010 Barbara Fast DO Work Phone: [facility] Start: 12-11-2009 End: 12-11-2009 Patient encounter procedure Iris Torres [facility] Start: 12-11-2009 End: 12-11-2009 Barbara Fast DO Work Phone: [facility] Start: 04-25-2009 End: 04-25-2009 Patient encounter procedure Iris Torres [facility] Start: 04-25-2009 End: 04-25-2009 Barbara Fast DO Work Phone: [facility] Start: 09-06-2008 End: 09-06-2008 Patient encounter procedure Iris Torres [facility] Start: 09-06-2008 End: 09-06-2008 Barbara Fast DO Work Phone: [facility] Start: 03-08-2008 End: 03-08-2008 Patient encounter procedure Iris Torres [facility] Start: 03-08-2008 End: 03-08-2008 Barbara Fast DO Work Phone: [facility] Start: 03-31-2007 End: 03-31-2007 Patient encounter procedure Iris Torres [facility] Start: 03-31-2007 End: 03-31-2007 Barbara Fast DO Work Phone: [facility] Start: 07-05-2006 End: 07-05-2006 Patient encounter procedure Iris Torres [facility] Start: 07-05-2006 End: 07-05-2006 Barbara Fast DO Work Phone: [facility] Start: 06-29-2006 End: 06-29-2006 Historical Summary [facility] Start: 06-29-2006 End: 06-29-2006 Barbara Fast DO Work Phone: [facility] Start: 04-13-2006 End: 04-13-2006 Historical Summary [facility] Start: 04-13-2006 End: 04-13-2006 Barbara Fast DO Work Phone: [facility] Physical examination Lizzy Long [facility]; [facility] Work Phone: Physical examination Lizzy Long [facility]; [facility] Work Phone: [facility]; [facility] Work Phone: Physical examination Lizzy Long [facility]; [facility] Work Phone: [facility]; [facility] Work Phone: Physical examination [facility]; [facility] Work Phone: [facility]; [facility] Work Phone: Physical examination [facility]; [facility] Work Phone: Physical examination Lizzy [facility]; [facility] Work Phone: Physical examination [facility]; [facility] Work Phone: Physical examination Ewa ely MD Work Phone: [facility]; [facility] Work Phone: [facility]; [facility] Work Phone: Physical examination Stephanie Anthony LPN [facility]; [facility] Work Phone: Pre-operative examination, unspecified Iris Torres [facility] Work Phone: Pre-operative examination, unspecified Barbara Fast [facility] Work Phone: Pre-operative examination, unspecified Barbara Fast [facility] Work Phone: Pre-operative examination, unspecified [facility]; [facility] Work Phone: Pre-operative examination, unspecified [facility]; [facility] Work Phone: Pre-operative examination, unspecified Lizzy Manchak AUDIT TECH [facility]; [facility] Work Phone: Pre-operative examination, unspecified Lizzy Manchak AUDIT TECH [facility]; [facility] Work Phone: Pre-operative examination, unspecified Lizzy Manchak AUDIT TECH [facility]; [facility] Work Phone: Pre-operative examination, unspecified Lizzy Manchak AUDIT TECH [facility]; [facility] Work Phone: Pre-operative examination, unspecified Lizzy Manchak AUDIT TECH [facility]; [facility] Work Phone: Pre-operative examination, unspecified Lizzy Manchak AUDIT TECH [facility]; [facility] Work Phone: Pre-operative examination, unspecified Lizzy Manchak AUDIT TECH [facility]; [facility] Work Phone: Pre-operative examination, unspecified Lizzy Manchak [facility]; [facility] Work Phone: Pre-operative examination, unspecified Ewa Rodriguez MD Work Phone: [facility]; [facility] Work Phone: Pre-operative examination, unspecified Lizzy Manchak [facility]; [facility] Work Phone: Pre-operative examination, unspecified Stephanie Anthony LPN [facility]; [facility] Work Phone: Procedures Date Procedure Procedure Detail Performing Clinician Start: 06-21-2023 Streptococcus pyogenes rRNA assay Start: 05-11-2023 Plain chest X-ray Start: 04-20-2023 CT CARDIAC SCORING WO IV CONTRAST BARBARA FAST Start: 04-20-2023 Ct heart no contrast quant eval coronry calcium Barbara A Fast DO Work Phone: Start: 12-15-2022 End: 12-15-2022 Procedure Note: See Note; NOTES: [facility] [place] [address] Carotid Duplex Ultrasound 12/15/22 0949 MR#: [id number] Acct: [id number] Name: LIA GALLEGOS Rep #: [id number] : 1940 82 From: Rob Sims MD Attending Dr: Dr. Barbara Mills, Status: REG CL I Ordering Dr: Barbara Mills DO Date: 12/15/22 Location: [facility] Sex: M C Admitted: Reason For Study: Carotid artery plaque, right Rt. Velocities/BP Lt. Velocities/BP Prox CCA 107.2/6.5 cm/sec. Prox CCA 74.9/9.7 cm/sec. Mid CCA 56.7/8.4 cm/sec. Mid CCA 61.7/8.8 cm/sec. Dist CCA 43.9/7.2 cm/sec. Dist CCA 54.1/9.7 cm/sec. Prox ICA 41.3/8.1 cm/sec. Prox ICA 52.2/7.8 cm/sec. Mid ICA 57/10.7 cm/sec. Mid ICA 57.9/14.5 cm/sec. Dist ICA 77/18. cm/sec. Dist ICA 67.4/15.4 cm/sec. Rt. ICA/CCA = 1.36. Lt. ICA/CCA = 1.09. Prox ECA 79.6/6 cm/sec. Prox ECA 82.5/6.9 cm/sec. Rt. Vert. 33/6.6 cm/sec. Lt. Vert. 52.2/8.8 cm/sec. Right Extracranial There is homogeneous, smooth atherosclerotic plaque noted in the right common carotid artery. There is heterogeneous, irregular atherosclerotic plaque noted in the right internal carotid artery. There is homogeneous, smooth atherosclerotic plaque noted in the right external carotid artery. Antegrade flow is noted in the right vertebral artery. Left Extracranial There is homogeneous, smooth atherosclerotic plaque noted in the left common carotid artery. There is heterogeneous, smooth atherosclerotic plaque noted in the left internal carotid artery. There is homogeneous, smooth atherosclerotic plaque noted in the left external carotid artery. Antegrade flow is noted in the left vertebral artery. Procedure Carotid Duplex [id number]. This is a Carotid Duplex examination using B-mode, color flow and specral Doppler. Exam performed in department. VL/Carotid Duplex Ultrasound Interpretation Summary Mild (<50%) stenosis right extracranial internal carotid. Mild (<50%) stenosis left extracranial internal carotid. Flow within the vertebral arteries is antegrade bilaterally. Ordering Physician: Barbara Mills Referring Physician: Barbara Mills Performed By: Marcella Shetty RVT 12/15/221843 Date Rob Sims MD CC: Dr. Barbara Mills DO Date Dictated: 12/15/2249 Date Transcribed: 12/15/221843 Clinical Supervisor: Signed Barbara Mills DO Work Phone: Start: 06-04-2022 End: 06-04-2022 Procedure Note: See Note; NOTES: [facility] [address] [place] [address] Echo Complete 06/04/22 1316 MR#: [id number] Acct: [id number] Name: LIA GALLEGOS Rep #: [id number] : 1940 81 From: Yadi Crenshaw MD Attending Dr: Dr. Barbara Mills, DO Status: REG CL I Ordering Dr: Barbara Mills DO Date: 06/04/22 Location: [facility] Sex: M C Admitted: Reason For Study: Ventricular premature depolarization Procedure This was a 2D Doppler, Color Flow transthoracic echocardiogram. Exam performed in department. Left Ventricle Normal size and thickness. The left ventricular ejection fraction is 65 %. Normal diastology for age. Right Ventricle Normal right ventricle. Atria Normal left atrium. Normal right atrium. Bubble contrast study suggestive of tiny PFO. Mitral Valve Mild (1+) mitral valve insufficiency. Tricuspid Valve Mild (1+) tricuspid valve insufficiency. Normal pulmonary artery pressure. Aortic Valve Trisinus/trileaflet aortic valve. Mild (1+) aortic valve insufficiency. Pulmonic Valve The pulmonic valve is not well visualized. Great Vessels Mildly calcified aortic root. Pericardium/Pleural No pericardial effusion. Medication Performed a rapid injection of agitated mix of 9 cc saline and 1cc air to assess for atrial septal defect. MMode/2D Measurements Calculations LVIDd: 5.1 cm IVSd: 1.1 cm Ao root diam: 3.4 cm LVIDs: 3.2 cm LVPWd: 0.77 cm RVDd: 4.3 cm FS: 37.7 % LAV(MOD-bp): 34.9 ml LVAd ap4: 29.5 cm2 SV(MOD-sp4): 46.7 ml LAV(MOD-bp) Indexed: 17.0 ml/m2 LVLd ap4: 8.6 cm LAV(MOD-sp2): 41.0 ml EDV(MOD-sp4): 83.1 ml LAV(MOD-sp4): 28.9 ml EDV(sp4-el): 85.7 ml LVAs ap4: 17.0 cm2 LVLs ap4: 7.1 cm ESV(MOD-sp4): 36.4 ml ESV(sp4-el): 34.6 ml EF(MOD-sp4): 56.2 % EF(sp4-el): 59.7 % SV(sp4-el): 51.2 ml LA A4 area: 13.3 cm2 LA dimension(2D): 3.9 cm RA A4 area: 15.3 cm2 Time Measurements MV dec time: 0.34 sec Doppler Measurements Calculations MV E max tal: 56.3 cm/sec Lat Peak E' Tal: 10.4 cm/sec Med Peak E' Tal: 5.2 cm/sec MV A max tal: 96.9 cm/sec E/E' lat: 5.4 E/E' med: 10.9 MV E/A: 0.58 MV dec slope: 163.4 cm/sec2 Ao V2 max: 147.1 cm/sec AI max tal: 404.4 cm/sec Ao max P.7 mmHg AI max P.4 mmHg Ao V2 mean: 108.1 cm/sec AI dec slope: 165.0 cm/sec2 Ao mean P.2 mmHg AI P1/2t: 718.0 msec Ao V2 VTI: 29.2 cm LV V1 max: 112.1 cm/sec PA V2 max: 144.0 cm/sec PI end-d tal: 75.6 cm/sec LV V1 max P.0 mmHg TR max tal: 254.8 cm/sec TR max P.0 mmHg ECHO/Echo Complete Interpretation Summary The left ventricular ejection fraction is 65 %. Bubble contrast study suggestive of tiny PFO Mild (1+) mitral valve insufficiency. Mild (1+) aortic valve insufficiency. Mild (1+) tricuspid valve insufficiency. Mildly calcified aortic root. Ordering Physician: Barbara Mills Referring Physician: Barbara Mills Performed By: Maggie Crowley RDCS, RVT 06/04/22 1436 Date Yadi Crenshaw MD CC: Dr. Barbara Mills DO Date Dictated: 06/04/22 1316 Date Transcribed: 06/04/22 1436 Clinical Supervisor: Signed Barbara Mills DO Work Phone: Start: 01-14-2022 End: 01-15-2022 Dexa Bone Density Study Procedure Note: See Note; NOTES: [facility] Imaging Services [address] [place] [address] Dexa Bone Density Study MR#: [id number] Acct: [id number] Name: LIA GALLEGOS Rep #: [id number] : 1940 M 81 From: Simone roblero MD PCP: Dr. Barbara Mills DO Status: [facility] CLI Study: Dexa Bone Density Study Date of Exam: 01/14/22 Exam# [id number] Ordering Dr: Barbara Mills DO STUDY: DUAL ENERGY X-RAY ABSORPTIOMETRY / DXA REASON FOR EXAM: Male, 81 years old. S32.000A TECHNIQUE: Bone Mineral Density (BMD) measurements of lumbar spine and bilateral hips were obtained. COMPARISON: None. FINDINGS: Lumbar Spine (L1-L4): g/cm2 (1.036) / T-score (-0.5) / Z-score (0.7) Findings are suggestive of normal bone density with a low fracture risk. Left Femur Total: g/cm2 (0.869) / T-score (-1.1) / Z-score (0.0) Left Femoral Neck: g/cm2 (0.623) / T-score (-2.3) / Z-score (-0.7) Right Femur Total: g/cm2 (0.880) / T-score (-1.0) / Z-score (0.1) Right Femoral Neck: g/cm2 (0.647) / T-score (-2.1) / Z-score (-0.5) BD/Dexa Bone Density Study IMPRESSION: The patient is considered osteopenic as outlined below according to World Bk Organization (WHO) criteria with a high fracture risk. Reference Information: The T-score is the number of standard deviations above or below the standard which is normal for young adults at their peak bone mineral density. The World Health Organization (WHO) interprets the T-scores as follows: Above -1 Normal bone density Between -1 and -2.5 Osteopenia Equal to / or below -2.5 Osteoporosis As a practical clinical guideline, osteopenia may be graded as follows: Mild -1 through -1.5 Moderate -1.6 through -2.0 Severe -2.1 through -2.4 The Z-score is the number of standard deviations above or below age-matched controls. A Z-score of less than -1.5 would be considered abnormal. References: 1. NIH Osteoporosis and Related Bone Diseases www osteo.org 2. International Society for Clinical Densitometry www iscd.org 3. National Osteoporosis Foundation www nof.org Electronically Signed: Simone Callejas MD at 14:52 EDT , CC: Dr. Barbara Mills DO Clinical Supervisor: Signed Barbara Mills DO Work Phone: Start: 01-14-2022 Dual energy X-ray absorptiometry Dr. Barbara Mills Work Phone: Start: 01-04-2022 MRI of brain without contrast Dr. Barbara Mills Work Phone: Start: 01-04-2022 CT angiography of head and neck Dr. Barbara Mills Work Phone: Start: 01-04-2022 CT of head without contrast Dr. Barbara Mills Work Phone: Start: 01-04-2022 End: 01-04-2022 STROKE Brain/Head without Cont Procedure Note: See Note; NOTES: [facility] Imaging Services [address] [place] [address] STROKE Brain/Head without Cont MR#: [id number] Acct: [id number] Name: LIA GALLEGOS Rep #: [id number] : 1940 M 81 From: Olman Corado MD PCP: Dr. Barbara Mills, DO Status: REG ER Study: STROKE Brain/Head without Cont Date of Exam: 0 01/04/22 Exam# [id number] Ordering Dr: Topher Lu MD We are attempting to reach an attending provider to discuss findings. An addendum with communication details will be sent when the communication is complete. STUDY: CT HEAD STROKE PROTOCOL W/O CONTRAST INJECTION REASON FOR EXAM: Male, 81 years old. 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 Individualized dose optimization techniques were used for this CT. COMPARISON: MRI brain 12/17/2016. FINDINGS: Normal soft tissue structures. Normal calvarium. Mild calcific plaquing of cavernous carotids and vertebral arteries. Mild atrophy and periventricular white matter ischemic changes. Normal basal ganglia and thalami. Normal brainstem. Normal cerebellum. There is no intracranial hemorrhage. There are no findings of an acute ischemic infarction. Normal visualized paranasal sinuses. ASPECT score: 10 CT/STROKE Brain/Head without Cont IMPRESSION: Mild atrophy and periventricular white matter ischemic change. No acute bleed.. If concern for acute infarct MRI recommended Electronically Signed: Olman Corado MD at 19:56 EDT , CC: Dr. Barbara Mills DO; Dr. Topher Lu MD Clinical Supervisor: Signed Barbara Mills DO Work Phone: Start: 01-04-2022 End: 01-04-2022 STROKE CTA Head AND Neck W/Con Procedure Note: See Note; NOTES: [facility] Imaging Services [address] [place] [address] STROKE CTA Head AND Neck W/Con MR#: [id number] Acct: [id number] Name: LIA GALLEGOS Rep #: [id number] : 1940 M 81 From: Olman Corado MD PCP: Dr. Barbara Mills DO Status: REG ER Study: STROKE CTA Head AND Neck W/Con Date of Exam: 0 01/04/22 Exam# [id number] Ordering Dr: Topher Lu MD We are attempting to reach an attending provider to discuss findings. An addendum with communication details will be sent when the communication is complete. STUDY: CTA HEAD AND NECK WITH CONTRAST REASON FOR EXAM: Male, 81 years old. Neuro deficit, acute, stroke suspected RADIATION DOSAGE (If Supplied By Facility): CTDIvol = ( 18.95 ) mGy, DLP = ( 725.17 ) mGycm TECHNIQUE: CT angiography was performed with a multi-detector CT scanner. Data acquisition was obtained from the skull base through the vertex following intravenous administration of IV 100mL Isovue-370. MIP images were reconstructed from the axial data set. Post-processing of the angiographic images was performed, with multiplanar reformation and 3D reconstruction. Individualized dose optimization techniques were used for this CT. COMPARISON: No relevant priors. FINDINGS: Normal bilateral petrous carotid arteries. Mild calcific plaquing of right cavernous carotid artery with a normal supraclinoid bifurcation. Mild calcific plaquing of the left cavernous carotid artery with a normal supraclinoid bifurcation. Normal right A1 segments of the anterior cerebral artery. Normal left A1 segments of the anterior cerebral artery.. Anterior communicating artery not visualized consistent with normal variant Normal bilateral A2 segments of the anterior cerebral arteries. Normal right M1 and M2 segments of the middle cerebral arteries, with a normal M1 bifurcation. Normal left M1 and M2 segments of the middle cerebral arteries, with a normal M1 bifurcation. Right posterior communicating artery not visualized consistent with normal variant. Normal left posterior communicating artery (PCOM). Normal bilateral vertebral arteries. Normal basilar artery with a normal basilar bifurcation. The visualized bilateral superior cerebellar (SCA) arteries are normal. Normal bilateral P1, P2 and visualized P3 segments of the posterior cerebral arteries. There is no demonstrated aneurysm of the [place] of [place]. AORTIC ARCH: Normal visualized aortic arch. Normal origins of the brachiocephalic, left common carotid, and left subclavian arteries. RIGHT CAROTID ARTERIES: Normal right common carotid artery (CCA). Mild calcific plaquing of the right common carotid bulb. Mild calcific plaquing of the origin of the right internal carotid (ICA) artery without a hemodynamically significant stenosis. Normal visualized cervical portion of the right internal carotid artery. Normal origin of the right external carotid artery (ECA). LEFT CAROTID ARTERIES: Normal left common carotid artery (CCA). Mild calcific plaquing of the left common carotid bulb. Mild calcific plaquing of the origin of the left internal carotid (ICA) artery without a hemodynamically significant stenosis. Normal visualized cervical portion of the left internal carotid artery. Normal origin of the left external carotid artery (ECA). VERTEBRAL ARTERIES: Normal bilateral vertebral arteries. CT/STROKE CTA Head AND Neck W/Con IMPRESSION: Mild atherosclerotic change without evidence for hemodynamically significant stenosis Electronically Signed: Olman Corado MD at 20:16 EDT Reading Location ID and State: [facility] [place] , Service support , CC: Dr. Barbara Mills DO; Dr. Topher Lu MD Clinical Supervisor: Signed Barbara Mills DO Work Phone: Start: 01-04-2022 End: 01-04-2022 Chest 1 View Procedure Note: See Note; NOTES: [facility] Imaging Services [address] [place] [address] Chest 1 View MR#: [id number] Acct: [id number] Name: LIA GALLEGOS Rep #: [id number] : 1940 81 From: Olman Corado MD PCP: Dr. Barbara Mills DO Status: REG ER Study: Chest 1 View Date of Exam: 01/04/22 Exam# [id number] Ordering Dr: Topher Lu MD STUDY: X-RAY CHEST REASON FOR EXAM: Male, 81 years old. Neuro deficit, acute, stroke suspected TECHNIQUE: AP portable COMPARISON: None. FINDINGS: The lungs are clear and expanded. There is no demonstrated pleural abnormality. Heart is mildly enlarged. Normal mediastinum and virgie. Normal visualized pulmonary arteries. Mildly calcified aortic arch and descending thoracic aorta. Dorsal spine and shoulders demonstrate degenerative change. Normal visualized ribs, and clavicles. Postsurgical changes of the right shoulder There is no demonstrated abnormality of the visualized soft tissue structures of the upper abdomen. RAD/Chest 1 View IMPRESSION: ASHD. No acute cardiopulmonary pathology Electronically Signed: Olman Corado MD at 19:32 EDT , CC: Dr. Barbara Mills DO; Dr. Topher Lu MD Clinical Supervisor: Signed Barbara Mills DO Work Phone: Start: 01-04-2022 Plain chest X-ray Dr. Barbara Mills Work Phone: Start: 01-04-2022 End: 01-04-2022 Emergency Department Summary Procedure Note: See Note; NOTES: [facility] Medical Records Department [address] [place] [address] Emergency Department Summary 01/04/22 MR#: [id number] Acct: [id number] Name: LIA GALLEGOS Rep #: [id number] : 1940 81 From: Topher Lu MD PCP: Dr. Barbara Mills DO Status:REG ER Location: ED HPI History of Present Illness Chief Complaint: Dizziness Detail of Chief Complaint: Patient unable to ambulate because his balance is off Informant: patient and family Onset/Context/Timing Onset: - (He awoke this morning at 0500 with symptoms after clarification. He was last known well last evening at 2100 when he went to bed) Context: Sudden Onset Timing: Continuous Quality and Location: Positive for Difficulty with Ambulation Onset: Went to bed January 03 at 2100. Awoke this morning with symptoms Current Severity: Moderate Maximum Severity: Moderate Worsened by: Standing and unable to ambulate Relieved by: Nothing Associated Symptoms Associated Symptoms: Positive for Nausea; Negative for Headache, Vomiting or Chest Pain Narrative Narrative: Patient is a 81-year-old male with history of hypertension, GERD, who presents because of problems with balance. He was last known well at 2100 on January 03 when he went to bed. Upon awakening at 0500???0530 he had symptoms. He denies headache. Denies double vision, blurred vision loss of vision. No trouble speech or swallowing. Denies paresthesia, anesthesia motors. Does report nausea without vomiting. He has fallen several times because his balance is off. He denies history of stroke. Prior similar symptoms: No Recent Illness/Hospitalization: No PFSH PFS Medical History Dizziness Hypertension Home Medications diphenhydramine HCl 25 mg capsule (Allergy Relief (diphenhydramine)) 25 mg PO QHS 04/05/17 [History Last Taken 04/01/19] esomeprazole magnesium 40 mg capsule,delayed release 40 mg PO QHS #90 caps 03/08/19 [Rx Last Taken 04/01/19] olmesartan 40 mg-hydrochlorothiazide 12.5 mg tablet 1 tab PO DAILY 12/04/20 [History Last Taken Unknown] Allergy/AdvReac Type Severity Reaction Status Date / Time No Known Allergies Allergy Verified 01/04/22 17:26 Family History Father Cancer Prostate CA Mother Hypertension Myocardial infarction at 73 of NE and pulmonary HTN Surgical History H/O carpal tunnel repair lumbarectomy Rotator cuff tear, left Social History (Updated 01/04/22 @ 18:[address] Topher Lu MD) household members: none Smoking Status: Former smoker how long ago did patient quit smokin years ago alcohol intake: never substance use type: does not use what type of physical activity do you participate in: walking frequency: 5-6 times per week duration: 45-60 minutes/day seatbelt use: always ROS ROS ED Constitutional Constitutional ED: Denies chills, fever(s), subjective, sweats or weakness Eyes Eyes: Denies blurry vision, change in vision or diplopia ENT ENT ED: Denies ear pain, rhinorrhea or sore throat Cardiovascular Cardiovascular: Denies chest pain, palpitations, paroxysmal nocturnal dyspnea or racing heartbeat Respiratory/Chest Respiratory/Chest: Denies cough, dyspnea, dyspnea on exertion or paroxysmal nocturnal dyspnea Gastrointestinal Gastrointestinal: Reports nausea; Denies abdominal pain, constipation, diarrhea, melena or vomiting Genitourinary Genitourinary ED: Denies dysuria, hematuria or urinary frequency Musculoskeletal Musculoskeletal: Reports back pain; Denies arthralgias, myalgias or neck pain Integumentary Denies abscess, Abrasions or rash Neurologic Neurologic: Reports other Details: Per HPI ; Denies headache(s), paresthesias or weakness Psychiatric Psychiatric: Denies anxiety Hematologic/Lymphatic Hematologic/Lymphatic: Denies easy bleeding or easy bruising EXAM Physical Exam Const Vital Signs: 01/04/22 17:26 01/04/22 17:29 01/04/22 17:55 Temperature 97.9 F Temperature Source Temporal Pulse Rate 68 69 Respiratory Rate 18 18 Respiratory Effort Normal Non-Labored Respiratory Pattern Normal Blood Pressure 175/79 H 175/79 H Blood Pressure Mean 111 111 Pulse Ox 99 99 Oxygen Delivery Method Room Air Room Air 01/04/22 18:39 01/04/22 19:09 01/04/22 19:25 Temperature Temperature Source Pulse Rate 69 69 69 Respiratory Rate 18 16 16 Respiratory Effort Respiratory Pattern Blood Pressure 172/79 H 163/72 H 163/72 H Blood Pressure Mean 110 102 102 Pulse Ox 96 98 98 Oxygen Delivery Method Room Air Room Air Room Air Positive well nourished and well developed General Appearance ED: well developed and NAD HEENT Reports moist mucous membranes atraumatic Nose: other Other Details: Head is normocephalic. Ears normal. TMs normal. No cerumen in the external auditory canal. Nares patent. Uvula midline. No deviation tongue or protrusion. Eyes PERRL and EOMs intact bilaterally Eyes Narrative: There is no nystagmus. There is no visual field cut. General Eye ED: Negative for pale conjunctiva, scleral icterus or other Neck no lymphadenopathy, supple and no JVD Chest Wall inspection of chest normal and palpation of chest normal Resp normal respiratory effort and clear to auscultation bilaterally Cardio Rate: regular rate Rhythm: regular rhythm Heart Sounds: S1 normal and S2 normal GI normal to inspection, nondistended, normoactive bowel sounds, soft to palpation, non-tender, non- distended and no masses Back/Spine no CVA tenderness Cervical Spine: Negative for cervical spine tenderness Thoracic Spine / Upper Back: Negative for thoracic spinal tenderness Lumbar Spine / Lower Back: Negative for lumbar spinal tenderness Extremity Extremity Narrative: He reports left shoulder pain due to rotator cuff and states the pain is worse because he slept on his left side. General Extremety ED: Negative for deformity, edema or tenderness General Extremity: Negative for deformity or edema Neuro oriented x3, CN's II-XII intact bilaterally and no sensory deficits noted Neuro Narrative: Patient has a Babinski sign on the left. He denies history of prior stroke or TIA. [place] Coma Scale: document GCS findings Spontaneous Obeys Commands Oriented 15 Sensorium / Orientation: alert, oriented to person, oriented to place and oriented to time Speech: speech normal Gait (Neuro): Negative for normal gait Sensory Exam: sensory level loss detected Motor Exam: strength 5/5 throughout Psych mental status grossly normal Skin no wounds General Skin Exam: Negative for jaundice Lesions: no lesions Rashes: no rashes NIHSS NIHSS Initial: 1a Level of Consciousness: 0 1b LOC Questions (Score 2 if aphasic/stupor): 0 1c LOC Commands (Only score 1st attempt): 0 2 Best Gaze (If aphasic, use reflexive mvmts.): 0 3 Visual: 0 4 Facial Palsy: 0 5 Motor Arm Right (UN = amputation/fusion): 0 5 Motor Arm Left: 0 6 Motor Leg Right: 0 6 Motor Leg Left: 0 7 Limb ataxia (Only + if out of proportion): 0 8 Sensory (Aphasia/stupor=0 or 1, coma=2): 0 9 Best Language: 0 10 Dysarthria (mute, coma=2, intubated=UN): 0 11 Extinction and Inattention (only scored if +): 0 Total Score: 0 MDM MDM MDM Narrative Medical decision making narrative: Even though patient's NIH is 0 concern he has had a cerebellar infarct. He is stances broad-based. He cannot stand without falling backwards. Unable to perform Romberg test with eyes open and close. Unable to assess gait because he falls. Stroke work-up was initiated. Lab Data Attestation: I reviewed the patient's lab results. Labs: Laboratory Results - last 24 hr 01/04/22 01/04/22 01/04/22 18:44 18:44 18:44 WBC 10.3 RBC 4.32 L Hgb 13.6 Hct 39.3 L MCV 91.0 MCH 31.5 MCHC 34.6 RDW Std Deviation 41.5 RDW Coeff of Lynne 12.6 Plt Count 227 MPV 9.4 Immature Gran % (Auto) 0.600 Neut % (Auto) 83.1 H Lymph % (Auto) 10.0 L Merrick % (Auto) 6.0 Eos % (Auto) 0.2 Baso % (Auto) 0.1 Absolute Neuts (auto) 8.5 H Absolute Lymphs (auto) 1.03 Nucleated RBC % 0 PT 13.4 INR 1.1 APTT 39.0 H Sodium 137 Potassium 3.4 L Chloride 102 Carbon Dioxide 26.0 Anion Gap 9 BUN 19 H Creatinine 0.64 L Estim Creat Clear Calc 64.67 Est GFR (MDRD) Af Amer 154 Est GFR (MDRD) Non-Af 127 BUN/Creatinine Ratio 29.6 H Glucose 109 H Calcium 9.3 Troponin I High Sens 8 Radiography Diagnostic Testing: Clinical Impression(s) from Imaging Studies Chest X-Ray 01/04/22 19:05 IMPRESSION: ASHD. No acute cardiopulmonary pathology Electronically Signed: Olman Corado MD at 19:32 EDT , Brain CT 01/04/22 19:47 IMPRESSION: Mild atrophy and periventricular white matter ischemic change. No acute bleed.. If concern for acute infarct MRI recommended Electronically Signed: Olman Corado MD at 19:56 EDT , ADDENDUM: 01/04/222009 IMPRESSION: Mild atrophy and periventricular white matter ischemic change. No acute bleed.. If concern for acute infarct MRI recommended N.B. : The above Results were Read Back by Olman Corado MD to Topher Lu MD, MD, and understanding confirmed on 01/04/2022 20:03:27 (ET). Electronically Signed: Olman Corado MD at 19:56 EDT , Head/Neck CTA 01/04/22 19:47 IMPRESSION: Mild atherosclerotic change without evidence for hemodynamically significant stenosis Electronically Signed: Olman Corado MD at 20:16 EDT , ADDENDUM: 01/04/222028 IMPRESSION: Mild atherosclerotic change without evidence for hemodynamically significant stenosis N.B. : The above Results were Read Back by Olman Corado MD to Dr. Marito MD, and understanding confirmed on 01/04/2022 20:22:45 (ET). Electronically Signed: Olman Corado MD at 20:16 EDT , Single view chest x-ray reveals normal cardiac silhouette and size. Perihilar regions normal. Osseous trucks unremarkable. Stroke Documentation Questions Stroke Team Activated: Yes Reviewed Inclusion/Exclusion criteria: Yes IV Alteplase (t-PA) Administered: No (Outside the window) No contraindications for IV Alteplase (t-PA) administration.: No Alteplase (t-PA) risks, benefits, alternative discussed: No Discharge Plan Triage Chief Complaint: Dizziness ED Provider: Topher Lu Dx/Rx/DC Orders Clinical Impression: Cerebellar stroke syndrome, Hypertension, GERD (gastroesophageal reflux disease) Prescriptions: No Action diphenhydramine HCl [Allergy Relief(diphenhydramin)] 25 mg capsule 25 mg PO QHS olmesartan-hydrochlorothiaz felipe 40-12.5 mg tablet 1 tab PO DAILY esomeprazole magnesium 40 mg capsule,delayed release(DR/EC) 40 mg PO QHS Qty: 90 3RF Rx Instructions: TAKE ONE CAPSULE BY MOUTH EVERY DAY Primary Care Provider: Fast,Barbara Referrals: Barbara Mills DO [Primary Care Provider] - Disposition Disposition: Acute Care Hospital [facility] What to do if you have Problems For any increased pain, shortness of breath, bleeding, nausea or vomiting, chest pain, or any unexpected problems, contact your Primary Care Provider. Call [facility] ([phone]) or report to the closest Emergency Room. Call 911 if necessary. 01/04/222041 <Electronically signed by Topher Lu MD> Cosigner Signature (if applicable): CC: Dr. Barbara Mills DO Signed Barbara Mills DO Work Phone: Start: 12-23-2021 MRI of lumbar spine Dr. Barbara Mills Work Phone: Start: 12-23-2021 End: 12-24-2021 Spine Lumbar (Routine) Procedure Note: See Note; NOTES: [facility] Imaging Services [address] [place] [id number] Spine Lumbar (Routine) MR#: [id number] Acct: [id number] Name: LIA GALLEGOS Rep #: [id number] : 1940 M 81 From: Trini Lugo MD PCP: Dr. Barbara Mills DO Status: REG CLI Study: Spine Lumbar (Routine) Date of Exam: 12/23/21 Exam# [id number] Ordering Dr: Barbara Mills DO STUDY: MRI LUMBAR SPINE WITHOUT CONTRAST REASON FOR EXAM: Male, 81 years old patient with compression fracture of L1 shown on radiographs done on 11/30/21. TECHNIQUE: Standardized fat and water weighted pulse sequences were obtained in the sagittal and axial planes. COMPARISON: Radiographs of the lumbar spine dated 11/30/2021. FINDINGS: T12-L1: There is a moderate compression fracture superior endplate of L1. Estimated amount of compression is approximately 40% of expected height of this vertebral body. There is mild annular disk bulge and osteophyte complex. There is mild degenerative arthropathy of the facet joints. Bilateral neuroforamina are narrowed without MR evidence for nerve impingement. There is mild acquired central canal stenosis. There is straightening of the normal lumbar lordosis. There is no substantial scoliosis. Normal conus medullaris that terminates at the L1 level. L1-2: There is mild annular disk bulge and osteophyte complex. There is mild degenerative arthropathy of the facet joints. Bilateral neuroforamina are narrowed without MR evidence for nerve impingement. There is no appreciable acquired central canal stenosis. L2-3: There is moderately large annular disk bulge and osteophyte complex. There is moderately severe degenerative arthropathy of the facet joints. Bilateral neuroforamina are narrowed without MR evidence for nerve impingement. There is mild acquired central canal stenosis. L3-4: There is diffuse irregularity of the inferior endplate of L3 that may be the result of multiple Schmorl''s nodes. There is narrowing of this disc. There is moderately large annular disk bulge and osteophyte complex. There is degenerative arthropathy of the facet joints. Bilateral neuroforamina are narrowed without MR evidence for nerve impingement. There is mild acquired central canal stenosis. L4-5: The patient appears to have had right-sided laminectomy. There is moderately large annular disk bulge and osteophyte complex. There is mild degenerative arthropathy of the facet joints. Bilateral neuroforamina are narrowed without MR evidence for nerve impingement. There is no appreciable acquired central canal stenosis. L5-S1: There is mild annular disk bulge and osteophyte complex. There is mild degenerative arthropathy of the facet joints. Bilateral neuroforamina are narrowed without MR evidence for nerve impingement. There is no appreciable acquired central canal stenosis. There is diffuse heterogeneous signal throughout the marrow that may be secondary to reactivated hematopoietic marrow. Normal visualized sacral ala. Normal visualized paraspinous soft tissue structures. MRI/Spine Lumbar (Routine) IMPRESSION: 1. Acute moderate compression fracture of L1. 2. 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 Electronically Signed: Trini Lugo MD at 2:48 EDT , CC: Dr. Barbara Mills DO Clinical Supervisor: Signed Barbara Mills DO Work Phone: Start: 12-11-2021 End: 12-11-2021 Urgent Care Visit Report Procedure Note: See Note; NOTES: [facility] [address] [place] [address] [address] [place] [address] OFFICE VISIT Date of Service: 12/11/21 MR#: [id number] Acct: [id number] Name: LIA GALLEGOS Rep #: [id number] : 1940 Provider: KATARINA Brown Age/Sex: 81/M Location: [facility] Status: Signed Intake Vital Signs 05/15/19 16:56 12/11/21 16:03 Height 6 ft 1 in BP 154/66 H Blood Pressure Location Lt brachial Position Sitting Respiration 16 Pulse 82 Pulse Source Monitor Temp 97.7 F L Temp Source Temporal Pulse Oximetry (%) 99 Oxygen Delivery Method room air Intake Visit Reasons: RASH/BITE ON LOWER LT SIDE OF BACK Chief Complaint: Rash Allergies No Known Allergies Allergy (Verified 12/11/21 16:04) Medications diphenhydramine HCl 25 mg capsule (Allergy Relief (diphenhydramine)) 25 mg PO QHS 04/05/17 [History Confirmed 12/11/21] esomeprazole magnesium 40 mg capsule,delayed release 40 mg PO QHS #90 caps 03/08/19 [Rx Confirmed 12/11/21] olmesartan 40 mg-hydrochlorothiazide 12.5 mg tablet 1 tab PO DAILY 12/04/20 [History Confirmed 12/11/21] methylprednisolone 4 mg tablets in a dose pack (Medrol (Deni)) 4 mg PO PER PKG DIR 6 days #21 tabs 12/11/21 [Rx Confirmed 12/11/21] valacyclovir 1 gram tablet 1,000 mg PO TID 7 days #21 tabs 12/11/21 [Rx Confirmed 12/11/21] PFSH Medical History Hypertension Surgical History H/O carpal tunnel repair lumbarectomy Rotator cuff tear, left Family History Father Cancer Prostate CA Mother Hypertension Myocardial infarction at 73 of [place] and pulmonary HTN Social History how long ago did patient quit smokin years ago alcohol intake: never substance use type: does not use what type of physical activity do you participate in: walking frequency: 5-6 times per week duration: 45-60 minutes/day seatbelt use: always HPI HPI Chief Complaint: Rash Details: LIA GALLEGOS, is a 81 M who presents to the office today for rash on his left flank. Patient states he noticed it yesterday and states that it is burning and itching. He denies any new medications or exposures. No lip/tongue/throat swelling. No other associated symptoms or alleviating/aggravating factors. ROS Const Constitutional: No other (6 system ROS completed with pertinent findings in HPI otherwise normal.) Exam Const General: cooperative and healthy appearing [facility] Head: normocephalic and atraumatic Ears: hearing grossly normal bilaterally Nose: external nose normal Face and sinus: normal facial exam and face symmetric Mouth: oral mucosae normal Throat: posterior oropharynx normal Resp Effort Inspection: normal respiratory effort Skin Other: Grouped vesicular lesions left flank in a dermatomal pattern. Neuro General: patient alert Psych Appearance: grossly normal Mental Status: mental status grossly normal Coding Level of Care Code Off vis,est,level 3 Diagnoses Shingles B02.9 Assessment and Plan Assessment and Plan (1) Shingles: Status: Acute Plan: Valacyclovir and Medrol Dosepak as prescribed today. Patient advised of symptomatic management techniques as well as potential red flags and when appropriate to report to the ED. Advised follow- up with his PCP in 5 to 7 days if no better or sooner if worse. Patient verbalized understanding and agreement with all the above. Medications: New methylprednisolone (Medrol (Deni)) 4 mg PO PER PKG DIR 6 days 21 tabs 0RF valacyclovir 1,000 mg PO TID 7 days 21 tabs 0RF 12/11/21 1622 <Electronically signed by Michael BRAY> Date Michael Bhakta Signature: Date (if applicable) CC: Barbara Mills DO Work Phone: Start: 11-30-2021 X-ray of lumbosacral spine Dr. Barbara Mills Work Phone: Start: 11-30-2021 End: 11-30-2021 L/S Spine Min 4 Views Comments: See Note; NOTES: [facility] Imaging Services [address] [place] [address] L/S Spine Min 4 Views MR#: [id number] Acct: [id number] Name: LIA GALLEGOS Rep #: [id number] : 1940 M 81 From: Miquel Diggs PCP: Dr. Barbara Mills DO Status: REG CLI Study: L/S Spine Min 4 Views Date of Exam: 11/30/21 Exam# [id number] Ordering Dr: Barbara Mills DO STUDY: X-RAY - LUMBAR SPINE REASON FOR EXAM: Male, 81 years old. low back pain -- low back pain TECHNIQUE: XR Spine Lumbar Min 4 Views COMPARISON: 5.3.18 ct FINDINGS: Normal lumbar lordosis. There is no substantial scoliosis. There is a normal alignment of the vertebrae. There is a compression deformity of the spine at level: L1. These are age-indeterminate but new since 2018. MRI could further evaluate if of concern. There is multilevel endplate spondylosis of the lumbar vertebrae. There is multi-level degenerative disc disease with multi-level disc space narrowing. There are atherosclerotic vascular calcifications. The soft tissue structures are unremarkable. RAD/L/S Spine Min 4 Views IMPRESSION: Degenerative changes of the spine, as detailed above. There is a compression deformity of the spine at level: L1. These are age-indeterminate but new since 2018. MRI could further evaluate if of concern. Electronically Signed: Miquel Stockton MD at 14:46 EDT Reading Location ID and State: [facility] / [place] , Service support , CC: Dr. Barbara Mills DO Clinical Supervisor: Signed Barbara Mills DO Work Phone: Start: 07-02-2021 End: 07-02-2021 CT Chest, Abd, Pel w/Contrast Comments: See Note; NOTES: [facility] Imaging Services [address] [place] [id number] Chest, Abd, Pel w/Contrast MR#: [id number] Acct: [id number] Name: ELLIA Adina Rep #: [id number] : 1940 M 80 From: Miquel Diggs PCP: Dr. Barbara Mills DO Status: REG CLI Study: CT Chest, Abd, Pel w/Contrast Date of Exam: Exam# [id number] Ordering Dr: Barbara Mills DO EXAM: CT CHEST, ABDOMEN AND PELVIS WITH INTRAVENOUS CONTRAST CLINICAL INDICATION: NIGHT SWEATS TECHNIQUE: Helically acquired images were obtained of the chest, abdomen and pelvis with intravenous contrast. This CT exam was performed using one or more of the following dose reduction techniques: automated exposure control, adjustment of the mA and/or kV according to patient size, and/or use of iterative reconstruction technique. This report was created using [employer] report generation technology. CONTRAST: IV 100mL Isovue-300 COMPARISON: None. FINDINGS: CHEST: LUNGS AND PLEURAL SPACES: Unremarkable. No mass. No consolidation or edema. No pleural effusion or thickening. No pneumothorax. HEART: There are calcifications of the coronary arteries. Heart size is normal. No pericardial effusion. MEDIASTINUM: Unremarkable. No mediastinal or hilar adenopathy. Esophagus is unremarkable. No hiatal hernia. THYROID: Unremarkable. No thyroid lesions. ABDOMEN: LIVER: Unremarkable. Homogeneous. No focal mass. GALLBLADDER AND BILE DUCTS: Unremarkable. No calcified gallstones. No gallbladder distention or wall edema. No intra- or extrahepatic biliary ductal dilation. PANCREAS: Unremarkable. No focal cystic or solid mass. SPLEEN: Unremarkable. Normal size without focal cystic or solid mass. ADRENALS: Unremarkable. No nodules. KIDNEYS AND URETERS: There are hypodensities in the left kidney. These are consistent for cysts. No follow up required. Normal renal size and position. No hydronephrosis. STOMACH AND BOWEL: There are multiple colonic diverticula consistent with diverticulosis. No stomach or bowel distention. No focal inflammatory change. PELVIS: APPENDIX: The appendix is visualized and appears normal. BLADDER: Unremarkable. REPRODUCTIVE: Unremarkable as visualized. No mass. CHEST, ABDOMEN and PELVIS: INTRAPERITONEAL SPACE: Unremarkable. No ascites or other fluid collection. No free air. BONES/JOINTS: There is bilateral neural foraminal stenosis at L4-5 and L5-S1. There are degenerative changes of the shoulders. Right humeral anchors. There are multi-level degenerative changes of the thoracic spine. There are diffuse degenerative changes of the visualized lumbar spine. Degenerative findings of the hips. No suspicious lytic or blastic abnormality. SOFT TISSUES: There is an umbilical hernia containing fat. VASCULATURE: There is atherosclerotic calcification of the aortic arch with tortuosity and elongation of the aortic arch and descending thoracic aorta. There are calcifications of the abdominal aorta. This is consistent for atherosclerotic disease. There is no abdominal aortic aneurysm. No aortic dissection. No obvious central pulmonary embolism although this study was not performed with the pulmonary embolism protocol. LYMPH NODES: Normal inferior vena cava. Subcentimeter mesenteric lymph nodes. OTHER FINDINGS: There are no acute findings of the chest. Vacuum disc phenomenon. CT/CT Chest, Abd, Pel w/Contrast IMPRESSION: 1. There are no acute findings of the chest. 2. There is an umbilical hernia containing fat. 3. There is bilateral neural foraminal stenosis at L4-5 and L5-S1. Electronically Signed: Miquel Stockton MD at 15:58 EDT , CC: Dr. Barbara Mills DO Clinical Supervisor: Signed Barbara Mills DO Work Phone: Start: 07-02-2021 CT of chest and abdomen Start: 03-05-2021 End: 03-05-2021 Carotid Duplex Ultrasound Comments: See Note; NOTES: [facility] [place] [address] Carotid Duplex Ultrasound 03/05/21 1410 MR#: [id number] Acct: [id number] Name: LIA GALLEGOS Rep #: [id number] : 1940 80 From: Rob Sims MD Attending Dr: Dr. Barbraa Mills, DO Status: REG CL I Ordering Dr: Barbara Mills DO Date: 03/05/21 Location: [facility] Sex: M C Admitted: Reason For Study: Carotid artery plaque, right Rt. Velocities/BP Lt. Velocities/BP Prox CCA 124.7/7.9 cm/sec. Prox CCA 95.5/7.9 cm/sec. Mid CCA 72.8/6.5 cm/sec. Mid CCA 79.1/9.7 cm/sec. Dist CCA 56.9/6.5 cm/sec. Dist CCA 59.7/10.2 cm/sec. Prox ICA 45.8/11.4 cm/sec. Prox ICA 48.7/9.1 cm/sec. Mid ICA 79/13.9 cm/sec. Mid ICA 86.3/22.5 cm/sec. Dist ICA 104.9/16.4 cm/sec. Dist ICA 87.6/21.2 cm/sec. Rt. ICA/CCA = 1.44. Lt. ICA/CCA = 1.11. Prox ECA 93.7/7.7 cm/sec. Prox ECA 121.1/4.2 cm/sec. Rt. Vert. 49.9/11.5 cm/sec. Lt. Vert. 61.8/12.6 cm/sec. Right Extracranial There is homogeneous, smooth atherosclerotic plaque noted in the right common carotid artery. There is heterogeneous, irregular atherosclerotic plaque noted in the right internal carotid artery. The right internal carotid artery is very tortuous. There is intimal thickening but no significant atherosclerotic plaque noted in the right external carotid artery. Antegrade flow is noted in the right vertebral artery. Left Extracranial There is homogeneous, smooth atherosclerotic plaque noted in the left common carotid artery. There is heterogeneous, smooth atherosclerotic plaque noted in the left internal carotid artery. There is homogeneous, smooth atherosclerotic plaque noted in the left external carotid artery. Antegrade flow is noted in the left vertebral artery. Procedure Carotid Duplex 52568. This is a Carotid Duplex examination using B-mode, color flow and specral Doppler. Exam performed in department. VL/Carotid Duplex Ultrasound Interpretation Summary Mild (<50%) stenosis right extracranial internal carotid. Mild (<50%) stenosis left extracranial internal carotid. Flow within the vertebral arteries is antegrade bilaterally. _ Ordering Physician: Barbara Mills Referring Physician: Barbara Mills Performed By: Marcella Shetty RVT 03/05/21 172 Date Rob Sims MD CC: Dr. Barbara Mills DO Date Dictated: 03/05/21 1410 Date Transcribed: 03/05/211721 Clinical Supervisor: Signed Barbara Mills DO Work Phone: Start: 02-13-2021 End: 02-13-2021 Shoulder min 2 Views Comments: See Note; NOTES: [facility] Imaging Services [address] [place] [address] Shoulder min 2 Views MR#: [id number] Acct: [id number] Name: LIA GALLEGOS Rep #: [id number] : 1940 M 80 From: Mookie Cox MD PCP: Dr. Rosi Worrell MD Status: REG CLI Study: Shoulder min 2 Views Date of Exam: 02/13/21 Exam# [id number] Ordering Dr: Barbara Mills DO STUDY: X-RAY - LEFT SHOULDER REASON FOR EXAM: Male, 80 years old. Left shoulder pain. TECHNIQUE: 4 view(s) of the shoulder. COMPARISON: None. FINDINGS: Osteopenia. Moderate arthrosis of the glenohumeral joint. Moderate arthrosis of the AC joint. Normal acromion. Sclerosis and cystic change at the humeral head. The soft tissue structures are unremarkable. Normal visualized pulmonary apex. RAD/Shoulder min 2 Views IMPRESSION: Osteopenia with osteoarthritic changes as described. No acute finding. Electronically Signed: Mookie Cox MD at 13:50 EDT , Service support , CC: Dr. Barbara Mills DO; Dr. Rosi Worrell MD Clinical Supervisor: Signed Barbara Mills DO Work Phone: Start: 02-13-2021 End: 02-13-2021 Cerv Spine 2 or 3 Views Comments: See Note; NOTES: [facility] Imaging Services [address] [place] [id number] Cerv Spine 2 or 3 Views MR#: [id number] Acct: [id number] Name: LIA GALLEGOS Rep #: [id number] : 1940 M 80 From: Mookie Cox MD PCP: Dr. Rosi Worrell MD Status: REG CLI Study: Cerv Spine 2 or 3 Views Date of Exam: 02/13/21 Exam# [id number] Ordering Dr: Barbara Mills DO STUDY: X-RAY - CERVICAL SPINE REASON FOR EXAM: Male, 80 years old. Neck pain. TECHNIQUE: 2 view(s) of the cervical spine were obtained. COMPARISON: None FINDINGS: Osteopenia. Normal anterior atlantoaxial articulation. Normal odontoid process. Normal cervical lordosis. Diffuse uncovertebral and facet sclerosis. And intervertebral disc space narrowing at C5-6 and C6-7 with osteophyte formation most marked at C5-6. Right carotid calcification. RAD/Cerv Spine 2 or 3 Views IMPRESSION: Osteopenia with cervical spondylosis most marked at C5-6 and C6-7 as described. No acute abnormality or evidence of erosive changes or fusion. Electronically Signed: Mookie Cox MD at 13:52 EDT , Service support , CC: Dr. Barbara Mills DO; Dr. Rosi Worrell MD Clinical Supervisor: Signed Barbara Mills DO Work Phone: Start: 03-07-2015 End: 03-07-2015 Ecg routine ecg w/least 12 lds w/i&r [MEASUREMENTS ANALYSIS] Date of Test: 03/07/2015 07:49:00; Heart Rate: 58; MS Interval: 192; QRS: 106; QT Interval: 406; Corrected QT Interval (QTc): 403; P Wave Electra: 54; QRS Wave Electra: 11; T Wave Electra: 19; Blood Pressure: 118/80 [ECG DIAGNOSTIC STATEMENTS] Date of Test: 03/07/2015 07:49:00; Summary: Sinus Bradycardia WITHIN NORMAL LIMITS Barbara Mills Work Phone: Comment on above: ekg showed normal sinus rhythym, normal axis, no acute st/t wave changes Start: 04-18-[address] PRIYANK MALAVE MD Comment on above: L4-5 carpal tunnel sx- le ft - [place] 2010 Lizzy Manchak carpal tunnel sx- le ft - [place] 2010 Lizzy Manchak carpal tunnel sx- le ft - [place] 2010 Lizzy Long carpal tunnel sx- le ft - [place] 2010 Lizzy Long carpal tunnel sx- le ft - [place] 2010 Lizzyadina Long carpal tunnel sx- le ft - [place] 2010 Lizzy Long AUDIT TECH carpal tunnel sx- le ft - [place] 2010 Lizzy Long AUDIT TECH carpal tunnel sx- le ft - [place] 2010 Lizzy Long AUDIT TECH carpal tunnel sx- le ft - [place] 2010 Lizzy Long AUDIT TECH carpal tunnel sx- le ft - [place] 2010 Lizzy Long AUDIT TECH carpal tunnel sx- le ft - [place] 2010 Lizzy Long AUDIT TECH carpal tunnel sx- le ft - [place] 2010 Lizzy Long AUDIT TECH carpal tunnel sx- le ft - [place] 2010 Lizzy Long AUDIT TECH carpal tunnel sx- le ft - [place] 2010 Lizzy Long AUDIT TECH carpal tunnel sx- le ft - [place] 2010 Lizzy Long AUDIT TECH Colonoscopy DR PRIYANK Jordan MD Decompression of med rachel nerve DR PRIYANK MALAVE MD Comment on above: RIGHT Laminectomy and discectomy DR PRIYANK MALVAE MD Comment on above: L4-5 lumbar laminectomy -1979 Barbara Mills Work Phone: lumbar laminectomy -1979 Lizzy Manchak lumbar laminectomy -1979 Lizzy Mangonzalesk lumbar laminectomy -1979 Lizzy Manchak lumbar laminectomy -1979 Lizzy Romeliak AUDIT TECH lumbar laminectomy -1979 Lizzy Mangonzalesk AUDIT TECH lumbar laminectomy -1979 Lizzy Mangonzalesk AUDIT TECH lumbar laminectomy -1979 Lizzy Mangonzalesk AUDIT TECH lumbar laminectomy -1979 Lizzy Manchak AUDIT TECH lumbar laminectomy -1979 Lizzy Manchak AUDIT TECH lumbar laminectomy -1979 Lizzy Mangonzalesk AUDIT TECH lumbar laminectomy -1979 Lizzy Mangonzalesk AUDIT TECH lumbar laminectomy -1979 Lizzy Mangonzalesk AUDIT TECH lumbar laminectomy -1979 Lizzy Manchak AUDIT TECH Lizzy Manchak AUDIT TECH Ewa Chad Leonardi MD Work Phone: Lizzy MACKENZIE Plan of Treatment Date Care Activity Detail Author Start: 12-17-2022 Influenza vaccination Influenza Vaccine (#1) [facility] Start: 12-08-2022 Procedure Education [facility]; [facility] Work Phone: Start: 12-08-2022 Urnls dip stick/tablet reagent auto microscopy [facility]; [facility] Work Phone: Start: 12-08-2022 Blood count complete auto&auto difrntl wbc [facility]; [facility] Work Phone: Start: 12-08-2022 Comprehensive metabolic panel [facility]; [facility] Work Phone: Start: 08-31-2022 Assay of prostate specific antigen total [facility]; [facility] Work Phone: Start: 08-31-2022 Procedure Education [facility]; [facility] Work Phone: Start: 08-31-2022 Cyanocobalamin vitamin b-12 [facility]; [facility] Work Phone: Start: 08-31-2022 C-reactive protein high sensitivity [facility]; [facility] Work Phone: Start: 08-31-2022 Lipid panel [facility]; [facility] Work Phone: Start: 08-31-2022 Blood count complete auto&auto difrntl wbc [facility]; [facility] Work Phone: Start: 08-31-2022 Comprehensive metabolic panel [facility]; [facility] Work Phone: Start: 08-16-2022 Culture bct isol&prsmptv id isolate ea urine [facility]; [facility] Work Phone: Start: 08-16-2022 Urinalysis qual/semiquant except immunoassays [facility]; [facility] Work Phone: Start: 05-24-2022 C-reactive protein high sensitivity [facility]; [facility] Work Phone: Start: 05-24-2022 Lipid panel [facility]; [facility] Work Phone: Start: 05-24-2022 Procedure Education [facility]; [facility] Work Phone: Start: 05-24-2022 Blood count complete auto&auto difrntl wbc [facility]; [facility] Work Phone: Start: 05-24-2022 Comprehensive metabolic panel [facility]; [facility] Work Phone: Start: 05-24-2022 Cyanocobalamin vitamin b-12 [facility]; [facility] Work Phone: Start: 05-03-2022 Urinalysis qual/semiquant except immunoassays URINALYSIS (76650) [facility]; [facility] Work Phone: Start: 05-03-2022 Culture bct isol&prsmptv id isolate ea urine URINE JORJE CULTURE-IDENTIFICATN (19548) [facility]; [facility] Work Phone: Start: 04-23-2022 Procedure Education [facility]; [facility] Work Phone: Start: 04-23-2022 INHOUSE COVID 19 (ONLY) RAPID (77946) [facility]; [facility] Work Phone: Start: 04-23-2022 Iaadiadoo influenza [facility]; [facility] Work Phone: Start: 04-18-2022 ADVANCE DIRECTIVE DISCUSSION ADVANCE DIRECTIVE DISCUSSION [facility] Start: 04-18-2022 DEPRESSION ASSESSMENT DEPRESSION ASSESSMENT [facility] Start: 03-15-2022 Procedure Education [facility]; [facility] Work Phone: Start: 03-15-2022 Cyanocobalamin vitamin b-12 [facility]; [facility] Work Phone: Start: 03-15-2022 Urnls dip stick/tablet reagent auto microscopy [facility]; [facility] Work Phone: Start: 03-15-2022 Blood count complete auto&auto difrntl wbc [facility]; [facility] Work Phone: Start: 03-15-2022 Comprehensive metabolic panel [facility]; [facility] Work Phone: Start: 03-03-2022 INHOUSE COVID 19 (ONLY) RAPID (73891) [facility]; [facility] Work Phone: Comment on above: neg Start: 03-03-2022 Iaadiadoo streptococcus group a [facility]; [facility] Work Phone: Comment on above: neg Start: 03-03-2022 Throat culture THROAT CULTURE (30143) [facility]; [facility] Work Phone: Start: 03-03-2022 INHOUSE COVID 19 (ONLY) RAPID (54449) INHOUSE COVID 19 (ONLY) RAPID (26386) [facility]; [facility] Work Phone: Start: 03-03-2022 Iaadiadoo streptococcus group a Rapid Strep Test, Office (70175) [facility]; [facility] Work Phone: Start: 03-03-2022 Procedure Education [facility]; [facility] Work Phone: Start: 02-16-2022 Provider Instructions for Treatment [facility]; [facility] Work Phone: Start: 01-19-2022 Procedure Education [facility]; [facility] Work Phone: Start: 01-19-2022 25 hydroxy includes fractions if performed Vitamin D Hydroxy (99520) [facility]; [facility] Work Phone: Start: 01-19-2022 Assay of thyroid stimulating hormone tsh TSH (86839) [facility]; [facility] Work Phone: Start: 01-19-2022 Assay of testosterone free TESTOSTERONE FREE (03123) [facility]; [facility] Work Phone: Start: 01-19-2022 Assay of testosterone total TESTOSTERONE TOTAL (12095) [facility]; [facility] Work Phone: Start: 01-19-2022 Assay of magnesium MAGNESIUM (15114) [facility]; [facility] Work Phone: Start: 01-19-2022 Potassium serum plasma/whole blood POTASSIUM SERUM (10229) [facility]; [facility] Work Phone: Start: 01-18-2022 Serum immunofixation [facility] Work Phone: Start: 01-18-2022 [facility] Work Phone: Start: 01-05-2022 Patient discharge [facility] Work Phone: Start: 01-04-2022 Ambulation without limitation [facility] Work Phone: Start: 01-04-2022 Assessment of risk of venous thromboembolism [facility] Work Phone: Start: 01-04-2022 Cardiac monitoring [facility] Work Phone: Start: 01-04-2022 Catheterization of vein [facility] Work Phone: Start: 01-04-2022 Continuous pulse oximetry [facility] Work Phone: Start: 01-04-2022 Elevation of head of bed [facility] Work Phone: Start: 01-04-2022 Exercises [facility] Work Phone: Start: 01-04-2022 Implementation of planned interventions [facility] Work Phone: Start: 01-04-2022 Insertion of catheter into peripheral vein [facility] Work Phone: Start: 01-04-2022 Measuring intake and output [facility] Work Phone: Start: 01-04-2022 Notification of physician [facility] Work Phone: Start: 01-04-2022 Oxygen therapy [facility] Work Phone: Start: 01-04-2022 Providing care according to standard [facility] Work Phone: Start: 01-04-2022 Referral to occupational therapist [facility] Work Phone: Start: 01-04-2022 Referral to service [facility] Work Phone: Start: 01-04-2022 Tobacco use cessation education [facility] Work Phone: Start: 01-04-2022 [facility] Work Phone: Start: 01-04-2022 Following clinical pathway protocol [facility] Work Phone: Start: 01-04-2022 MRI of brain without contrast Brain without Contrast [facility] Work Phone: Start: 01-04-2022 Verification routine [facility] Work Phone: Start: 01-04-2022 Admission procedure [facility] Work Phone: Start: 01-04-2022 Oxygen therapy [facility] Work Phone: Start: 01-04-2022 [facility] Work Phone: Start: 12-29-2021 Procedure Education [facility]; [facility] Work Phone: Start: 12-17-2021 Influenza vaccination INFLUENZA (#1) [facility] Start: 11-30-2021 Procedure Education [facility]; [facility] Work Phone: Start: 11-30-2021 Lipid panel LIPID PANEL (70091) [facility]; [facility] Work Phone: Start: 11-30-2021 Blood count complete auto&auto difrntl wbc CBC W/AUTO DIFF WBC (24480) [facility]; [facility] Work Phone: Start: 11-30-2021 Comprehensive metabolic panel METABOLIC PANEL, COMPREHENSIVE (09356) [facility]; [facility] Work Phone: Start: 11-04-2021 Procedure Education [facility]; [facility] Work Phone: Start: 10-26-2021 Assay of prostate specific antigen total PSA (PROSTATE SPECIFIC ANTIGEN) (54412) [facility]; [facility] Work Phone: Comment on above: please draw with his other labs Start: 09-07-2021 Blood count complete auto&auto difrntl wbc [facility]; [facility] Work Phone: Start: 08-16-2021 Lipid panel [facility]; [facility] Work Phone: Start: 08-16-2021 Comprehensive metabolic panel [facility]; [facility] Work Phone: Start: 08-16-2021 Cyanocobalamin vitamin b-12 [facility]; [facility] Work Phone: Start: 07-06-2021 Cyanocobalamin vitamin b-12 VITAMIN B12 AND FOLATES (67979) [facility]; [facility] Work Phone: Start: 07-06-2021 Assay of thyroid stimulating hormone tsh TSH (99709) [facility]; [facility] Work Phone: Start: 07-06-2021 Blood count complete auto&auto difrntl wbc CBC W/AUTO DIFF WBC (10746) [facility]; [facility] Work Phone: Start: 07-06-2021 C-reactive protein high sensitivity C-REACT PROT HIGH SENS(hsCRP) (47102) [facility]; [facility] Work Phone: Start: 07-06-2021 Comprehensive metabolic panel METABOLIC PANEL, COMPREHENSIVE (76774) [facility]; [facility] Work Phone: Start: 07-06-2021 Lipid panel LIPID PANEL (56837) [facility]; [facility] Work Phone: Start: 07-06-2021 Procedure Education [facility]; [facility] Work Phone: Start: 06-10-2021 Procedure Education [facility]; [facility] Work Phone: Start: 06-10-2021 Antinuclear antibodies mary MARY (ANTINUCLEAR ANTIBODY) (07665) [facility]; [facility] Work Phone: Start: 06-10-2021 Sedimentation rate rbc non-automated SED RATE ERYTHROCYTE (08076) [facility]; [facility] Work Phone: Start: 06-10-2021 C-reactive protein C-REACTIVE PROTEIN (62794) [facility]; [facility] Work Phone: Start: 06-01-2021 Procedure Education [facility]; [facility] Work Phone: Start: 05-19-2021 Blood count complete auto&auto difrntl wbc CBC W/AUTO DIFF WBC (78432) [facility]; [facility] Work Phone: Start: 05-19-2021 Comprehensive metabolic panel METABOLIC PANEL, COMPREHENSIVE (09027) [facility]; [facility] Work Phone: Start: 04-18-2021 ADVANCE DIRECTIVE DISCUSSION ADVANCE DIRECTIVE DISCUSSION [facility] Start: 02-06-2021 Procedure Education [facility]; [facility] Work Phone: Start: 11-11-2020 COVID-19 VACCINE (3 - Booster for Pfizer series) COVID-19 VACCINE (3 - Booster for Pfizer series) [facility] Start: 09-08-2020 Hepatic function panel HEPATIC FUNCTION PANEL (99240) [facility]; [facility] Work Phone: Comment on above: PLEASE DRAW THIS WITH OTHER LABS ORDERED IN CHART.please fax to Dr. Freire - [phone] SEND CBC Start: 08-09-2020 COVID-19 VACCINE (3 - Booster for Pfizer series) COVID-19 VACCINE (3 - Booster for Pfizer series) [facility] Start: 08-09-2020 COVID-19 Vaccine (3 - Pfizer series) COVID-19 Vaccine (3 - Pfizer series) [facility] Start: 05-05-2020 Basic metabolic panel calcium total METABOLIC PANEL, BASIC (14410) [facility]; [facility] Work Phone: Start: 05-05-2020 Urinalysis qual/semiquant except immunoassays URINALYSIS (34078) [facility]; [facility] Work Phone: Start: 04-28-2020 Procedure Education [facility]; [facility] Work Phone: Start: 04-28-2020 Urnls dip stick/tablet reagent auto microscopy URINALYSIS, W/ MICRO (40491) [facility]; [facility] Work Phone: Start: 04-28-2020 Blood count complete auto&auto difrntl wbc CBC W/AUTO DIFF WBC (22413) [facility]; [facility] Work Phone: Start: 04-28-2020 Comprehensive metabolic panel METABOLIC PANEL, COMPREHENSIVE (05186) [facility]; [facility] Work Phone: Start: 04-28-2020 Lipid panel LIPID PANEL (50299) [facility]; [facility] Work Phone: Start: 04-28-2020 Cobalamin (Vitamin B12) [Mass/Vol] Vitamin B-12 (cyanocobalamin) (07259) [facility]; [facility] Work Phone: Start: 04-18-2020 Urinalysis qual/semiquant except immunoassays URINALYSIS (45069) [facility] Work Phone: Start: 04-18-2020 C-reactive protein high sensitivity [facility] Work Phone: Start: 04-18-2020 Blood count complete auto&auto difrntl wbc [facility] Work Phone: Start: 04-18-2020 Comprehensive metabolic panel [facility] Work Phone: Start: 04-18-2020 Lipid panel [facility] Work Phone: Start: 03-18-2020 Procedure Education [facility] Work Phone: Start: 01-02-2020 Procedure Education [facility] Work Phone: Start: 11-23-2019 Clotting factor viii ahg 1 stage VON [place] PROF 89084 (16508) [facility] Work Phone: Start: 11-23-2019 Beta 2 glycoprotein i antibody each BETA-2 GLYCOPROT I AB 210508 (06710) [facility] Work Phone: Start: 11-23-2019 Cardiolipin antibody each ig class ANTICARDIOLIPIN IgG/IgM 754369 (86487) [facility] Work Phone: Start: 10-31-2019 PT Coag (PPP) [Time] PT (PROTHROMBIN TIME) (81191) [facility] Work Phone: Start: 10-31-2019 aPTT Coag (Bld) [Time] PTT (ACTIVATED PARTIAL THROMBOPLASTIN TIME) (28406) [facility] Work Phone: Start: 10-24-2019 Procedure Education [facility] Work Phone: Start: 10-24-2019 aPTT Coag (Bld) [Time] PTT (ACTIVATED PARTIAL THROMBOPLASTIN TIME) (03483) [facility] Work Phone: Start: 10-24-2019 C-reactive protein high sensitivity C-REACT PROT HIGH SENS(hsCRP) (84552) [facility] Work Phone: Start: 07-17-2019 Procedure Education [facility] Work Phone: Start: 07-10-2019 Procedure Education [facility] Work Phone: Start: 08-25-2018 DIABETES SCREEN DIABETES SCREEN [facility] Start: 12-01-2015 Provider Instructions for Treatment [facility] Work Phone: Start: 12-01-2015 Blood occult fecal hgb deter ia qual feces 1-3 [facility] Work Phone: Start: 11-10-2015 Patient Education [facility] Work Phone: Start: 11-10-2015 Procedure Education [facility] Work Phone: Start: 11-10-2015 Provider Instructions for Treatment [facility] Work Phone: Start: 03-07-2015 Procedure Education [facility] Work Phone: Start: 07-08-2014 Procedure Education [facility] Work Phone: Start: 07-08-2014 Lipid panel [facility] Work Phone: Start: 07-08-2014 Blood count manual cell count each [facility] Work Phone: Start: 07-08-2014 Urine albumin quantitative [facility] Work Phone: Start: 07-08-2014 Comprehensive metabolic panel [facility] Work Phone: Start: 11-19-2013 Procedure Education [facility] Work Phone: Start: 04-25-2013 Blood count manual cell count each [facility] Work Phone: Start: 04-25-2013 Comprehensive metabolic panel [facility] Work Phone: Start: 04-25-2013 Lipid panel [facility] Work Phone: Start: 08-14-2012 Patient Education [facility] Work Phone: Start: 08-14-2012 Urine albumin quantitative [facility] Work Phone: Start: 08-14-2012 Comprehensive metabolic panel [facility] Work Phone: Start: 08-14-2012 Lipid panel [facility] Work Phone: Start: 04-03-2012 Patient Education [facility] Work Phone: Start: 04-03-2012 Blood count manual cell count each [facility] Work Phone: Start: 04-03-2012 Comprehensive metabolic panel [facility] Work Phone: Start: 04-03-2012 Lipid panel [facility] Work Phone: Start: 03-24-2012 Assay of prostate specific antigen total [facility] Internal Medicine Work Phone: Start: 12-03-2011 Provider Instructions for Treatment [facility] Work Phone: Start: 10-26-2010 Comprehensive metabolic panel [facility] Work Phone: Start: 10-26-2010 Lipid panel [facility] Work Phone: Start: 04-29-2010 Assay of prostate specific antigen total [facility] Work Phone: Start: 04-29-2010 Blood count manual cell count each [facility] Work Phone: Start: 04-29-2010 Comprehensive metabolic panel [facility] Work Phone: Start: 04-29-2010 Lipid panel [facility] Work Phone: Start: 04-01-2010 Lipid panel [facility] Work Phone: Start: 04-01-2010 Comprehensive metabolic panel [facility] Work Phone: Start: 09-06-2008 Lipid panel [facility] Work Phone: Start: 09-06-2008 Comprehensive metabolic panel [facility] Work Phone: Start: 09-06-2008 Assay of prostate specific antigen total [facility] Work Phone: Start: 03-31-2007 Urnls dip stick/tablet rgnt auto w/o microscopy [facility] Work Phone: Start: 03-31-2007 Assay of thyroid stimulating hormone tsh [facility]; [facility] Work Phone: Start: 03-31-2007 TSH Qn TSH (22267) [facility] Work Phone: Start: 03-31-2007 Comprehensive metabolic panel [facility] Work Phone: Start: 03-31-2007 Blood count manual cell count each [facility] Work Phone: Start: 03-31-2007 Lipid panel [facility] Work Phone: Start: 07-05-2006 Provider Instructions for Treatment [facility] Work Phone: Start: 2005 Pneumococcal Vaccine: 65+ Years (1 - PCV) Pneumococcal Vaccine: 65+ Years (1 - PCV) [facility] Start: 2005 PNEUMOCOCCAL: 65+ (1 - PCV) PNEUMOCOCCAL: 65+ (1 - PCV) [facility] Start: 1990 SHINGRIX VACCINE (1 of 2) SHINGRIX VACCINE (1 of 2) [facility] Start: 1990 Zoster Vaccines (1 of 2) Zoster Vaccines (1 of 2) [facility] Start: 1962 DTaP/Tdap/Td Vaccines (1 - Tdap) DTaP/Tdap/Td Vaccines (1 - Tdap) [facility] Start: 09-25-1959 Urine microalbumin profile DTAP,TDAP,TD (1 - Tdap) [facility] Start: 1940 Lipid panel Lipid Panel [facility] Start: 1940 Medicare Annual Wellness Visit Medicare Annual Wellness Visit (AWV) [facility] CT for calcium scori ng WO contrast and CTA W contrast IV Heart and coronary arteries CT cardiac scoring wo IV contrast Imaging Routine Occlusion and stenosis of right carotid artery 04/20/2023 2:45 PM EST [facility] Service Area Work Phone: Nuclear Ab [Titer] i n Serum by Immunofluorescence [facility] Work Phone: Patient referral [facility] Work Phone: [facility] Work Phone: [facility] Work Phone: [facility] Work Phone: [facility] Work Phone: [facility] Work Phone: [facility] Work Phone: [facility] Work Phone: [facility] Work Phone: [facility] Work Phone: [facility] Work Phone: [facility] Work Phone: [facility] Work Phone: [facility] Work Phone[facility] Work Phone: [facility] Work Phone: [facility] Work Phone: [facility] Work Phone: [facility]; [facility] Work Phone: [facility]; [facility] Work Phone: [facility]; [facility] Work Phone: [facility]; [facility] Work Phone: [facility]; [facility] Work Phone: [facility]; [facility] Work Phone: [facility]; [facility] Work Phone: [facility]; [facility] Work Phone: [facility]; [facility] Work Phone: [facility]; [facility] Work Phone: [facility]; [facility] Work Phone: [facility] Work Phone: [facility]; [facility] Work Phone: [facility]; [facility] Work Phone: [facility]; [facility] Work Phone: Immunizations Immunization Date Immunization Notes Care Provider Fa cili 06-15-2020 Covid (Pfizer) [facility] 06-14-2020 SARS-CoV-2 mRNA (tozinameran) vaccine DR PRIYANK MALAVE MD [facility] Comment on above: Result Comment: 2024: [id number] 05-26-2020 Covid (Pfizer) [facility] Comment on above: Result Comment: 2024: [id number] 05-19-2020 COVID-Pfizer (30 MCG/0.3 ML) Barbara Fast DO Work Phone: [facility]; [facility] Work Phone: 01-22-2019 Influenza virus vaccine [facility] 12-22-2018 pneumococcal conjuga te vaccine, 13 valent [facility] 12-22-2018 pneumococcal vaccine , unspecified formulation [facility] Work Phone: 01-10-2018 Fluad 2018-19 65yr up(PF)45 mcg(15 mcgx3)/0.5 mL intramuscular syringe (flu vac [facility] Work Phone: 04-04-2017 Influenza virus vaccine [facility] Payers Date Payer Category Payer Self-pay [id number] 2022 Unknown 2022 Unknown [id number] 2021 Unknown [id number] 2018 Medicare [id number] 2018 Medicare [id number] 2018 Unknown [id number] 2005 Medicare [id number] 1940 Unknown [id number] 2.16.84 [id number] 1940 Unknown [id number] 2.16.8 40.1.303511.3.579.2.627 1940 Unknown [id number] 2.16.8 40.1.039170.3.579.2.627 1940 Unknown [id number] 2.16.8 40.1.464077.3.579.2.627 1940 Unknown [id number] 2.16.8 40.1.988742.3.579.2.1243 1940 Unknown [id number] 2.16.8 40.1.016658.3.579.2.627 1940 Unknown [id number] 2.16.8 40.1.380174.3.579.2.627 1940 Unknown [id number] 2.16.8 40.1.454430.3.579.2.627 1940 Unknown [id number] 2.16.8 40.1.774157.3.579.2.627 1940 Unknown [id number] 2.16.8 40.1.841575.3.579.2.627 Unknown [id number] Unknown [id number] 2.16.8 40.1.132359.3.579.2.462 Unknown [id number] 2.16.8 40.1.142075.3.579.2.462 Unknown [id number] 2.16.8 40.1.174504.3.579.2.462 Unknown [id number] 2.16.8 40.1.479315.3.579.2.462 Unknown [id number] 2.16.8 40.1.693190.3.579.2.462 Unknown [id number] 2.16.8 40.1.502479.3.579.2.462 Unknown [id number] 2.16.8 40.1.741184.3.579.2.462 Unknown [id number] 2.16.8 40.1.757201.3.579.2.462 Unknown [id number] 2.16.8 40.1.848804.3.579.2.462 Unknown [id number] 2.16.8 40.1.090714.3.579.2.462 Unknown [id number] 2.16.8 40.1.432601.3.579.2.462 Unknown [id number] 2.16.8 40.1.619646.3.579.2.462 Unknown [id number] 2.16.8 40.1.384952.3.579.2.462 Unknown [id number] 2.16.8 40.1.744374.3.579.2.462 Unknown [id number] 2.16.8 40.1.516933.3.579.2.462 Social History Date Type Detail Facility Caffeine Use Caffeine Use [facility] Work Phone: Comment on above: 3 QD QD walk, 2-3 miles , heterosexua l Self employed Tobacco Use: Tobacco Use: [facility] Work Phone: Comment on above: Remotely quit tobacc o use Tobacco Use: Tobacco Use: [facility]; [facility] Work Phone: Comment on above: Remotely quit tobacc o use Start: 05-15-2019 End: 01-05-2022 Tobacco smoking status NHIS Unknown if ever smoked [facility] Start: 04-15-2019 None [facility] Start: 04-15-2019 Spouse/ Signif icant Other [facility] Start: 04-02-2019 Cigarettes;[facility] Start: 1940 Sex Assigned At Male [facility] Start: 12-28-2021 Tobacco smoking stat NHIS Never smoked tobacco [facility] Start: 12-28-2021 Tobacco use and exposure Smokeless tobacco non-user [facility] Start: 12-28-2021 End: 06-03-2022 Alcohol intake Current non-drinker of alcohol (finding) [facility] Start: 1940 Sex Assigned At Not on file [facility] Start: 12-18-2021 End: 04-20-2023 Exposure to SARS-CoV-2 (event) Not sure [facility] Gender identity Not on file [facility] ospitals [facility] Work Phone: Start: 03-16-2019 End: 04-01-2024 Tobacco smoking status Ex-smoker (finding) [facility] Comment on above: quit >50yrs ago Sex Assigned At [facility] Start: 03-29-2017 Sex Male (finding) [facility] Goals Date Patient Goal Desired Activity /State Functional Status Date Assessment Result Facility 05-30-2024 Functional Status Nurse Myriam amaya q2hrs Performed Other: 7am -12pm [facility] 05-30-2024 Functional Status bilateral thigh high [facility] 05-30-2024 [facility] Functional Status Room check performed [facility] 05-29-2024 Functional Status Martine [facility] 05-29-2024 Functional Status Martine [facility] 05-29-2024 Functional Status Single level home [facility] 05-29-2024 Functional Status [facility] 10-05-2023 Functional Status Minimum assistance [facility] 10-04-2023 Functional Status Awake, Resting [facility] 09-13-2023 Functional Status Awake, Resting [facility] 01-05-2022 Functional status Ambulates [facility] Work Phone: Mental Status Date Assessment Result Facility 05-30-2024 Mental Status Oriented x 4 [facility] 05-29-2024 Mental Status [facility] 05-29-2024 Mental Status [facility] 05-29-2024 Mental Status [facility] 10-05-2023 Mental Status Orientation Oriented x 4 [facility] 10-04-2023 Mental Status [facility] 09-13-2023 Mental Status Oriented x 4 [facility] 01-05-2022 Cognitive function Voice/Name [facility] Work Phone: 01-04-2022 Cognitive function Level Of Cons ciousness Awake;Alert;Appropriate;Follow s Commands [facility] Work Phone: Clinical Notes 12-28-2021 to 05-30-2024 Note Date & Type Note Facility 05-30-2024 Hospital Discharge instructions Patient Education 05/30/2024 11:56:49 Osteoarthritis Osteoarthritis Osteoarthritis is a type of arthritis that affects tissue that covers the ends of bones in joints (cartilage). Cartilage acts as a cushion between the bones and helps them move smoothly. Osteoarthritis results when cartilage in the joints gets worn down. Osteoarthritis is sometimes called wear and tear arthritis. Osteoarthritis is the most common form of arthritis. It often occurs in older people. It is a condition that gets worse over time (a progressive condition). Joints that are most often affected by this condition are in: Fingers. Toes. Hips. Knees. Spine, including neck and lower back. What are the causes? This condition is caused by age-related wearing down of cartilage that covers the ends of bones. What increases the risk? The following factors may make you more likely to develop this condition: Older age. Being overweight or obese. Overuse of joints, such as in athletes. Past injury of a joint. Past surgery on a joint. Family history of osteoarthritis. What are the signs or symptoms? The main symptoms of this condition are pain, swelling, and stiffness in the joint. The joint may lose its shape over time. Small pieces of bone or cartilage may break off and float inside of the joint, which may cause more pain and damage to the joint. Small deposits of bone (osteophytes) may grow on the edges of the joint. Other symptoms may include: A grating or scraping feeling inside the joint when you move it. Popping or creaking sounds when you move. Symptoms may affect one or more joints. Osteoarthritis in a major joint, such as your knee or hip, can make it painful to walk or exercise. If you have osteoarthritis in your hands, you might not be able to shovel mechanic items, twist your hand, or control small movements of your hands and fingers (fine motor skills). How is this diagnosed? This condition may be diagnosed based on: Your medical history. A physical exam. Your symptoms. X-rays of the affected joint(s). Blood tests to rule out other types of arthritis. How is this treated? There is no cure for this condition, but treatment can help to control pain and improve joint function. Treatment plans may include: A prescribed exercise program that allows for rest and joint relief. You may work with a physical therapist. A weight control plan. Pain relief techniques, such as: ?Applying heat and cold to the joint. ?Electric pulses delivered to nerve endings under the skin (transcutaneous electrical nerve stimulation, or TENS). ?Massage. ?Certain nutritional supplements. NSAIDs or prescription medicines to help relieve pain. Medicine to help relieve pain and inflammation (corticosteroids). This can be given by mouth (orally) or as an injection. Assistive devices, such as a brace, wrap, splint, specialized glove, or cane. Surgery, such as: ?An osteotomy. This is done to reposition the bones and relieve pain or to remove loose pieces of bone and cartilage. ?Joint replacement surgery. You may need this surgery if you have very bad (advanced) osteoarthritis. Follow these instructions at home: Activity Rest your affected joints as directed by your health care provider. Do not drive or use heavy machinery while taking prescription pain medicine. Exercise as directed. Your health care provider or physical therapist may recommend specific types of exercise, such as: ?Strengthening exercises. These are done to strengthen the muscles that support joints that are affected by arthritis. They can be performed with weights or with exercise bands to add resistance. ?Aerobic activities. These are exercises, such as brisk walking or water aerobics, that get your heart pumping. ?Mnqcl-sd-cjzsgv activities. These keep your joints easy to move. ?Balance and agility exercises. Managing pain, stiffness, and swelling If directed, apply heat to the affected area as often as told by your health care provider. Use the heat source that your health care provider recommends, such as a moist heat pack or a heating pad. ?If you have a removable assistive device, remove it as told by your health care provider. ?Place a towel between your skin and the heat source. If your health care provider tells you to keep the assistive device on while you apply heat, place a towel between the assistive device and the heat source. ?Leave the heat on for 20 30 minutes. ?Remove the heat if your skin turns bright red. This is especially important if you are unable to feel pain, heat, or cold. You may have a greater risk of getting burned. If directed, put ice on the affected joint: ?If you have a removable assistive device, remove it as told by your health care provider. ?Put ice in a plastic bag. ?Place a towel between your skin and the bag. If your health care provider tells you to keep the assistive device on during icing, place a towel between the assistive device and the bag. ?Leave the ice on for 20 minutes, 2 3 times a day. General instructions Take mhbb-oyf-hkyvxtv and prescription medicines only as told by your health care provider. Maintain a healthy weight. Follow instructions from your health care provider for weight control. These may include dietary restrictions. Do not use any products that contain nicotine or tobacco, such as cigarettes and e-cigarettes. These can delay bone healing. If you need help quitting, ask your health care provider. Use assistive devices as directed by your health care provider. Keep all follow-up visits as told by your health care provider. This is important. Where to find more information National [employer] of Arthritis and Musculoskeletal and Skin Diseases: www.niams.nih.gov National [employer] on Aging: www.grecia.nih.gov [employer]: www.rheumatology.org Contact a health care provider if: Your skin turns red. You develop a rash. You have pain that gets worse. You have a fever along with joint or muscle aches. Get help right away if: You lose a lot of weight. You suddenly lose your appetite. You have night sweats. Summary Osteoarthritis is a type of arthritis that affects tissue covering the ends of bones in joints (cartilage). This condition is caused by age-related wearing down of cartilage that covers the ends of bones. The main symptom of this condition is pain, swelling, and stiffness in the joint. There is no cure for this condition, but treatment can help to control pain and improve joint function. This information is not intended to replace advice given to you by your health care provider. Make sure you discuss any questions you have with your health care provider. Document Released: 04/04/2006 Document Revised: 03/17/2018 Document Reviewed: 12/06/2016 iMER Patient Education 2020 [employer]. 05/30/2024 07:40:26 5 - [facility] Post-op Instruction 11/2016 (40259) [facility] Post-operative Instructions PLEASE FOLLOW [facility] POST-OP INSTRUCTIONS GIVEN WATCH FOR SIGNS OF INFECTION: call the office ([phone]) if experencing any of the following: (Usually appears 36-48 hours after surgery) Increased temperature (101 degrees Fahrenheit or higher) Redness or swelling Increased uncontrolled pain Foul odor or drainage Calf discomfort Significant swelling Or if having any chest pain, shortness of breath, or difficulty breathing or swallowing call the office or go the nearest Emergency Room. If you have any questions, please call your doctor at the number listed on your follow up instructions. Form: 338A (33801) R: 08/22 Follow Up Care 02/07/2024 10:28:24 With:ROBERT CHARLES PA-C, Orthopedic Address: [facility] [place] [address]- When:06/11/2024 13:45:00 Comments:This is your post-op appointment. Follow-up as scheduled. With:[facility] Address: [address], [place] [address]- [phone] When:06/12/2024 09:00:00 Comments:This is your first physical therapy appointment. Follow-up as scheduled. [facility] 05-30-2024 Note Discharge Instructions Thank you for allowing [facility] to assist you with your healthcare needs. The following is important discharge information regarding your hospital visit. Your Care Team VISHAL WHITE Your Diagnosis GERD (gastroesophageal reflux disease) HTN (hypertension) Osteoarthritis What to do next Scheduled Follow-Up Appointments Appointment Type When With Where Contact Information StatusPT Outpatient Evaluation 06/12/2024 09:00 AM EST [facility] [phone] Confirmed Follow Up Appointments Follow Up with ROBERT CHARLES PA-C, Orthopedic When:06/11/2024 01:45 PM EST Where:[facility] [address] [place], [place] [address] [address]- Additional Information: This is your post-op appointment. Follow-up as scheduled. Follow Up with [facility] When:06/12/2024 09:00 AM EST Where:[address] [place] [address] [phone] Additional Information: This is your first physical therapy appointment. Follow-up as scheduled. Allergies NKA Medications Please ask your primary doctor or pharmacist before taking any other medication not listed, including over the counter drugs, herbal medications, vitamins and or supplements as they may interact with your home medications. What How Much When Instructions Last Dose New acetaminophen (Tylenol) 1,000 Milligram by mouth Three (3) times a day not to exceed 3000 mg/ day New docusate-senna (Senokot S) 2 tab(s) by mouth Two (2) times a day Duration: 3 Days Take until first bowel movement, then as needed TODAY New traMADol (Ultram 50 mg oral tablet) See instructions 1-2 tab(s) Oral q6hr TODAY @ 8:35 Changed aspirin 81 Milligram by mouth Two (2) times a day Take 81 mg aspirin twice daily with food for 2 weeks postoperatively for DVT prophylaxis. After 2 weeks you can then go back to 81 mg aspirin daily as prescribed TODAY Unchanged atenolol (atenolol 25 mg oral tablet) 1 tab(s) by mouth Every day HELD D/T LOW BP Unchanged atorvastatin (atorvastatin 10 mg oral tablet) 1 tab(s) by mouth Every day LAST NIGHT Unchanged cholecalciferol (Vitamin D3) 100 Microgram by mouth Every day DID NOT TAKE Unchanged esomeprazole (esomeprazole 40 mg oral delayed release capsule) 1 cap by mouth Once a day before a meal TODAY Unchanged hydroCHLOROthiazide (hydroCHLOROthiazide 12.5 mg oral tablet) 1 tab(s) by mouth Every day DID NOT TAKE Unchanged hydroxychloroquine (hydroxychloroquine 200 mg oral tablet) 1 tab(s) by mouth Two (2) times a day TODAY Unchanged valsartan (valsartan 80 mg oral tablet) 1 tab(s) by mouth Two (2) times a day TODAY Please take this list to your next doctor s visit. Bring all medications you take, including over the counter medications, herbals and other supplements with you to your doctor s visit. Patients and families are reminded to discard old lists and to update any records with all medication providers or retail pharmacies. Medication Leaflets tramadol (TRAM a dol) Arthur Oro, TraMADol Hydrochloride ER (Eqv-Ryzolt), TraMADol Hydrochloride ER (Eqv-Ultram ER), Ultram What is the most important information I should know about tramadol? MISUSE OF OPIOID MEDICINE CAN CAUSE ADDICTION, OVERDOSE, OR . Keep this medicine where others cannot get to it. Fatal side effects may occur if you use also use alcohol or other drugs that cause drowsiness or slow breathing. What is tramadol? Tramadol is used to treat moderate to severe pain. The extended-release form of tramadol is for uwdbxh-wgu-nnyzo treatment of severe pain and follows a daily dosing schedule. This form of tramadol is not for use on an as-needed basis. Tramadol may also be used for purposes not listed in this medication guide. What should I discuss with my healthcare provider before taking tramadol? You should not take tramadol if you are allergic to it, or if you have: severe asthma or breathing problems, a stomach or bowel obstruction (including paralytic ileus); if you have recently used alcohol, sedatives, tranquilizers, or narcotic medications; or if you have used an MAO inhibitor in the past 14 days, such as isocarboxazid, linezolid, methylene blue injection, phenelzine, or tranylcypromine. Tramadol should not be given to a child younger than 12 years old. Ultram ER should not be given to anyone younger than 18 years old. Do not give tramadol to anyone between 12 and 18 years old who have a risk of breathing problems such as obstructive sleep apnea, obesity, or lung problems. Do not give tramadol to anyone younger than 18 years old who recently had surgery to remove the tonsils or adenoids. Seizures have occurred in some people taking tramadol. Your seizure risk may be higher if you have ever had: depression, a mental illness, head injury, epilepsy or other seizure disorder; an opioid overdose, or a drug or alcohol addiction; or a metabolic disorder. Tell your doctor if you have or have ever had: urination, gallbladder, pancreas, or thyroid problems; a stomach disorder; breathing problems, sleep apnea, mental illness, or suicide attempt; or liver or kidney disease. May harm an unborn baby. Tell your doctor if you are or plan to become . If you use tramadol during , your baby could be born with life-threatening withdrawal symptoms, and may need medical treatment for several weeks. Do not breastfeed. Tramadol in breast milk can cause life-threatening side effects in a nursing baby. Long-term tramadol may affect fertility in men or women. could be harder to achieve while either parent is using this medicine. How should I take tramadol? Follow the directions on your prescription label and read all medication guides or instruction sheets. Never use tramadol in larger amounts, or for longer than prescribed. Tell your doctor if you feel an increased urge to use more of this medicine. Never share tramadol with another person, especially someone with a history of drug addiction. MISUSE CAN CAUSE ADDICTION, OVERDOSE, OR . Keep the medicine where others cannot get to it. Selling or giving away this medicine is against the law. Do not change your dose or stop using tramadol without your doctor's advice. Ask a doctor before using any other opioid medications to treat or manage pain. Tramadol can be taken with or without food, but take it the same way each time. Swallow the capsule or tablet whole to avoid exposure to a potentially fatal overdose. Do not crush, chew, break, open, or dissolve. Measure liquid medicine with the supplied measuring device (not a kitchen spoon). Never crush or break a tramadol pill to inhale the powder or mix it into a liquid to inject the drug into your vein. This practice has resulted in . You may have withdrawal symptoms if you stop using tramadol suddenly. Ask your doctor before stopping the medicine. Store at room temperature away from moisture and heat. Keep your medicine in a place where no one can use it improperly. Do not keep leftover medicine. Just one dose can cause in someone using it accidentally or improperly. Ask your pharmacist about a drug take-back program. You may also mix the leftover medicine with cat litter or coffee grounds in a sealed plastic bag and throw the bag in the trash. What happens if I miss a dose? Since tramadol is used for pain, you are not likely to miss a dose. Skip any missed dose if it is almost time for your next dose. Do not use two doses at one time. What happens if I overdose? Seek emergency medical attention or call the Poison Help line at . An overdose can be fatal, especially in a child or other person using this medicine without a prescription. Overdose symptoms may include severe drowsiness, pinpoint pupils, slow breathing, or no breathing. Your doctor may recommend you get naloxone (a medicine to reverse an opioid overdose) and keep it with you at all times. A person caring for you can give the naloxone if you stop breathing or don't wake up. Your caregiver must still get emergency medical help and may need to perform CPR (cardiopulmonary resuscitation) on you while waiting for help to arrive. Anyone can buy naloxone from a pharmacy or local health department. Make sure any person caring for you knows where you keep naloxone and how to use it. What should I avoid while taking tramadol? Do not drink alcohol or any products that contain alcohol. Dangerous side effects or could occur. Avoid driving or hazardous activity until you know how this medicine will affect you. Dizziness or drowsiness can cause falls, accidents, or severe injuries. Also avoid getting up too fast from a sitting or lying position, or you may feel dizzy. What are the possible side effects of tramadol? Get emergency medical help if you have signs of an allergic reaction (hives, difficult breathing, swelling in your face or throat) or a severe skin reaction (fever, sore throat, burning eyes, skin pain, red or purple skin rash with blistering and peeling). Tramadol can slow or stop your breathing, and may occur, especially if you drink alcohol or use other drugs that cause drowsiness or slow breathing. A person caring for you should give naloxone and/or seek emergency medical attention if you have slow breathing with long pauses, blue colored lips, or if you are hard to wake up. Call your doctor at once if you have: headache, hunger, weakness, sweating, irritability, dizziness, fast heart rate, or feeling jittery; increased sensitivity to pain or if your pain gets worse; seizure (convulsions), confusion, problems with thinking or memory, weakness, feeling unsteady; noisy breathing, sighing, shallow breathing, breathing that stops during sleep, a slow heart rate or weak pulse, a light-headed feeling, like you might pass out; or low cortisol levels--nausea, vomiting, loss of appetite, dizziness, worsening tiredness or weakness. Serious breathing problems may be more likely in older adults and people who are debilitated or have wasting syndrome or chronic breathing disorders. Seek medical attention right away if you have symptoms of serotonin syndrome, such as: agitation, hallucinations, fever, sweating, shivering, fast heart rate, muscle stiffness, twitching, loss of coordination, nausea, vomiting, or diarrhea. Common side effects may include: itching, constipation, nausea, vomiting, stomach pain; or dizziness, drowsiness, tiredness, headache. This is not a complete list of side effects and others may occur. Call your doctor for medical advice about side effects. You may report side effects to FDA at 6-558-ZPD-3356. What other drugs will affect tramadol? You may have breathing problems or withdrawal symptoms if you start or stop taking certain other medicines. Tell your doctor if you also use an antibiotic, antifungal medication, heart or blood pressure medication, seizure medication, or medicine to treat HIV or hepatitis C. Many other drugs can be dangerous when used with tramadol. Tell your doctor if you also use: medicine for allergies, asthma, blood pressure, motion sickness, irritable bowel, or overactive bladder; a benzodiazepine sedative like Valium, Klonopin, or Xanax; other opioid medicines, sleep medicine, muscle relaxers, or other drugs that make you drowsy; or drugs that affect serotonin, such as antidepressants, stimulants, or medicine for migraines or Parkinson's disease. This list is not complete. Many other drugs may affect tramadol. This includes prescription and reux-ftw-yaawloc medicines, vitamins, and herbal products. Not all possible drug interactions are listed here. Where can I get more information? Your doctor or pharmacist can provide more information about tramadol. Remember, keep this and all other medicines out of the reach of children, never share your medicines with others, and use this medication only for the indication prescribed. Every effort has been made to ensure that the information provided by [employer]. ('[employer]') is accurate, up-to-date, and complete, but no guarantee is made to that effect. Drug information contained herein may be time sensitive. [employer] information has been compiled for use by healthcare practitioners and consumers in the [place] and therefore [employer] does not warrant that uses outside of the [place] are appropriate, unless specifically indicated otherwise. [employer]'s drug information does not endorse drugs, diagnose patients or recommend therapy. [employer] drug information is an informational resource designed to assist licensed healthcare practitioners in caring for their patients and/or to serve consumers viewing this service as a supplement to, and not a substitute for, the expertise, skill, knowledge and judgment of healthcare practitioners. The absence of a warning for a given drug or drug combination in no way should be construed to indicate that the drug or drug combination is safe, effective or appropriate for any given patient. [employer] does not assume any responsibility for any aspect of healthcare administered with the aid of information be[employer] provides. The information contained herein is not intended to cover all possible uses, directions, precautions, warnings, drug interactions, allergic reactions, or adverse effects. If you have questions about the drugs you are taking, check with your doctor, nurse or pharmacist. Copyright 0683-0878 [employer]. Version: 24.02. Revision Date: 05/23/2023. Education Materials Osteoarthritis Osteoarthritis is a type of arthritis that affects tissue that covers the ends of bones in joints (cartilage). Cartilage acts as a cushion between the bones and helps them move smoothly. Osteoarthritis results when cartilage in the joints gets worn down. Osteoarthritis is sometimes called wear and tear arthritis. Osteoarthritis is the most common form of arthritis. It often occurs in older people. It is a condition that gets worse over time (a progressive condition). Joints that are most often affected by this condition are in: Fingers. Toes. Hips. Knees. Spine, including neck and lower back. What are the causes? This condition is caused by age-related wearing down of cartilage that covers the ends of bones. What increases the risk? The following factors may make you more likely to develop this condition: Older age. Being overweight or obese. Overuse of joints, such as in athletes. Past injury of a joint. Past surgery on a joint. Family history of osteoarthritis. What are the signs or symptoms? The main symptoms of this condition are pain, swelling, and stiffness in the joint. The joint may lose its shape over time. Small pieces of bone or cartilage may break off and float inside of the joint, which may cause more pain and damage to the joint. Small deposits of bone (osteophytes) may grow on the edges of the joint. Other symptoms may include: A grating or scraping feeling inside the joint when you move it. Popping or creaking sounds when you move. Symptoms may affect one or more joints. Osteoarthritis in a major joint, such as your knee or hip, can make it painful to walk or exercise. If you have osteoarthritis in your hands, you might not be able to shovel mechanic items, twist your hand, or control small movements of your hands and fingers (fine motor skills). How is this diagnosed? This condition may be diagnosed based on: Your medical history. A physical exam. Your symptoms. X-rays of the affected joint(s). Blood tests to rule out other types of arthritis. How is this treated? There is no cure for this condition, but treatment can help to control pain and improve joint function. Treatment plans may include: A prescribed exercise program that allows for rest and joint relief. You may work with a physical therapist. A weight control plan. Pain relief techniques, such as: ? Applying heat and cold to the joint. ? Electric pulses delivered to nerve endings under the skin (transcutaneous electrical nerve stimulation, or TENS). ? Massage. ? Certain nutritional supplements. NSAIDs or prescription medicines to help relieve pain. Medicine to help relieve pain and inflammation (corticosteroids). This can be given by mouth (orally) or as an injection. Assistive devices, such as a brace, wrap, splint, specialized glove, or cane. Surgery, such as: ? An osteotomy. This is done to reposition the bones and relieve pain or to remove loose pieces of bone and cartilage. ? Joint replacement surgery. You may need this surgery if you have very bad (advanced) osteoarthritis. Follow these instructions at home: Activity Rest your affected joints as directed by your health care provider. Do not drive or use heavy machinery while taking prescription pain medicine. Exercise as directed. Your health care provider or physical therapist may recommend specific types of exercise, such as: ? Strengthening exercises. These are done to strengthen the muscles that support joints that are affected by arthritis. They can be performed with weights or with exercise bands to add resistance. ? Aerobic activities. These are exercises, such as brisk walking or water aerobics, that get your heart pumping. ? Gsjmz-nu-ysemzh activities. These keep your joints easy to move. ? Balance and agility exercises. Managing pain, stiffness, and swelling If directed, apply heat to the affected area as often as told by your health care provider. Use the heat source that your health care provider recommends, such as a moist heat pack or a heating pad. ? If you have a removable assistive device, remove it as told by your health care provider. ? Place a towel between your skin and the heat source. If your health care provider tells you to keep the assistive device on while you apply heat, place a towel between the assistive device and the heat source. ? Leave the heat on for 20 30 minutes. ? Remove the heat if your skin turns bright red. This is especially important if you are unable to feel pain, heat, or cold. You may have a greater risk of getting burned. If directed, put ice on the affected joint: ? If you have a removable assistive device, remove it as told by your health care provider. ? Put ice in a plastic bag. ? Place a towel between your skin and the bag. If your health care provider tells you to keep the assistive device on during icing, place a towel between the assistive device and the bag. ? Leave the ice on for 20 minutes, 2 3 times a day. General instructions Take ekbc-ovr-vsakyjp and prescription medicines only as told by your health care provider. Maintain a healthy weight. Follow instructions from your health care provider for weight control. These may include dietary restrictions. Do not use any products that contain nicotine or tobacco, such as cigarettes and e-cigarettes. These can delay bone healing. If you need help quitting, ask your health care provider. Use assistive devices as directed by your health care provider. Keep all follow-up visits as told by your health care provider. This is important. Where to find more information National [employer] of Arthritis and Musculoskeletal and Skin Diseases: www.niams.nih.gov National [employer] on Aging: www.grecia.nih.gov [employer]: www.rheumatology.org Contact a health care provider if: Your skin turns red. You develop a rash. You have pain that gets worse. You have a fever along with joint or muscle aches. Get help right away if: You lose a lot of weight. You suddenly lose your appetite. You have night sweats. Summary Osteoarthritis is a type of arthritis that affects tissue covering the ends of bones in joints (cartilage). This condition is caused by age-related wearing down of cartilage that covers the ends of bones. The main symptom of this condition is pain, swelling, and stiffness in the joint. There is no cure for this condition, but treatment can help to control pain and improve joint function. This information is not intended to replace advice given to you by your health care provider. Make sure you discuss any questions you have with your health care provider. Document Released: 04/04/2006 Document Revised: 03/17/2018 Document Reviewed: 12/06/2016 [employer] Patient Education 2020 [employer] [facility] Post-operative Instructions PLEASE FOLLOW [facility] POST-OP INSTRUCTIONS GIVEN WATCH FOR SIGNS OF INFECTION: call the office ([phone]) if experencing any of the following: (Usually appears 36-48 hours after surgery) Increased temperature (101 degrees Fahrenheit or higher) Redness or swelling Increased uncontrolled pain Foul odor or drainage Calf discomfort Significant swelling Or if having any chest pain, shortness of breath, or difficulty breathing or swallowing call the office or go the nearest Emergency Room. If you have any questions, please call your doctor at the number listed on your follow up instructions. Form: 338A ([id number]) R: 08/22 Additional Information VACCINATE! IT SAVES LIVES! Members of the community who have not yet received the COVID-19 vaccine and would like to receive it can visit one of [facility] vaccine clinics. There are many vaccine clinic locations within the [facility]. For locations and available times, please visit https://gettheshot.coronavirus.[place].gov/. It is important to note that some COVID mobile vaccine clinics are held outdoors and may be canceled in rainy or stormy conditions. To learn more about pediatric vaccinations (ages 5-11), we invite you to visit the [facility] webpage. https://www.iFlipds.org/pag es/3170-Mfitc-Ickrqyrbgqf-Frequent qo-Dznqp-Lnzhulakv.html To learn more about the COVID-19 vaccine, we invite you to visit the CDC website for a list of frequently asked questions.https://www.cdc.gov/irving navirus/2019-ncov/vaccines/faq.htm l [employer] Patient Portal Access Instructions: Stay connected with your healthcare team and access your personal medical information anytime with the [employer] Patient Portal. Please follow the directions below to create your [employer] account: 1.Access the email account you provided upon registration to the hospital/physician office.2.Look for an invitation email from [facility].3.Open the email and access the invitation link: Accept Invitation to [facility].4.Fill in the required coronado to create your account. To access your account, visit Find That File/Molcurehart. Click the blue button labeled Access Patient Portal and then log in with the username and password that you created in the steps above. You will be able to view your test results, lab results, a summary of your visits, upcoming appointments and more. There is also a convenient messaging option where you can send secure messages to your provider. In addition, you will have the ability to download any documents or summaries to your computer and/or send the information securely to a physician. Remember that your healthcare information is confidential, so carefully consider who you will allow to register on the [facility] for access to your information. You can also access the [facility] on the [place] [facility] kelly. Simply click on Patient Portal and then log into your account. If you would like to receive a full copy of your medical records, please contact the [facility] Medical Records Department by calling [phone], Tuesday through Tuesday between 8 a.m. and 4:30 p.m. HOW TO SAFELY DISPOSE OF PRESCRIPTION MEDICATIONS Please use one of the following methods to safely dispose of your unused medications. 1.Use a drug disposal kit: the drug disposal pouch allows you to safely discard your old and unused drugs. Ask your nurse to give you one when you are discharged.2.Visit a local take-back location: Many local pharmacies and police departments have programs that collect old and unwanted prescription drugs. Call your local pharmacy or go to http://[place]/0R5Ky9b to find one close to you.3.Make use of household items: Use cat litter or old coffee grounds to dispose medications if other options are not available. Mix your drugs with these household products, seal them in an airtight container and throw it into the garbage. Call [facility]: [phone] to be sure your drugs can be disposed of in this way. Some medicines may require a different approach.4.Never flush your medications down the toilet. IF YOU HAVE BEEN PRESCRIBED AN OPIOID FOR PAIN If you have been prescribed an opioid (such as hydrocodone, oxycodone or morphine), it is critical to understand the possible side effects and risks of opioid pain medications. Even when taken as directed, opioids can have several side effects including: Tolerance, meaning you might need to take more of a medication for the same pain relief. Nausea, vomiting and/or constipation. Sleepiness, dizziness, dry mouth, confusion, depression or itching. Physical dependence, meaning you have withdrawal symptoms when a medication is stopped, can develop within a few days. KNOW YOUR RESPONSIBILITIES It is important to know exactly how much and how often to take the opioid pain medications you are prescribed. Never take opioids in higher amounts or more often than prescribed. Do not combine opioids with alcohol or other drugs that cause drowsiness, such as benzodiazepines, also known as benzos, including diazepam and alprazolam, muscle relaxants or sleep aids. Never sell or share prescription opioids. This is illegal. Store opioids in a secure place and out of reach of others (including children, family, friends and visitors). The last page of this document has been signed and retained as a CHART COPY. Signatures Patient Education Materials Dorian Domingo Post-op Instruction 11/2016 ([id number]) Medication Leaflets traMADol 100 mg oral tablet My discharge plan and instructions have been reviewed and explained to me and I,LIA GALLEGOS understand my current condition and have read and understand these discharge instructions. I have received a written copy of the plan/instructions. If I have questions, I am aware that I should contact my doctor. Patient/Drum Sander Signature: Date/Time: Relationship to Patient: ___ Witness Name/Signature: Date/Time: [facility] 05-30-2024 Pastoral care Progress note Pastoral Care Note Entered On: 05/30/2024 9:39 EST Performed On: 05/30/2024 9:36 EST by Robert Santoyo Pastoral Care Type of Pastoral Visit : Initial visit Spiritual Care Visit Initiated by : Consult/Referral Spiritual Care Reason for Visit : General Pastoral Care Referral From : Patient Spiritual Assessment : Faithful, Coping well with illness, Spiritually Strong, Good Chelsie Group Support Spiritual Care Emotional Assessment : Happy, Thoughtful/Reflective, Has Support Network Spiritual Care Intervention : Active listening, Affirmation, Prayer with Patient/Family Spiritual Outcomes : Expresses Confidence, Expresses Chelsie Spiritual Plan of Care : No Further Action Pastoral Care Comments : patient has been seen before and he requested a visit for opportunity to talk and to have prayer spoken; pt is tatlkative about what he has been doing and people that he is helping; pt is very spiritually minded and shares about his own chelsie and experiences; prayer given; daughter comes in during the visit Number Present During Pastoral Visit : 1 Pastoral Care Visit Length : 15 minute(s) Robert Santoyo - 05/30/2024 9:36 EST Digitally Signed by Robert Santoyo on 05/30/2024 09:36 AM [facility] 05-30-2024 Note Date of Service May 30, 2024 Subjective The patient was sitting in bed side chair upon examination. Patient denies any chest pain, shortness of breath, dizziness, lightheadedness, nausea or vomiting, or calf pain. No adverse overnight events. Pain has been controlled on medications. Patient overall is doing very well this morning. He has no complaints. Patient denies any numbness and tingling. Patient does have tramadol at home for discharge medications. Objective Vitals and Measurements T: 36.6 C (Oral) TMIN: 36 C TMAX: 36.6 C (Temporal Artery) HR: 53 (Monitored) RR: 18 BP: 104/62 SpO2: 100% HT: 185.4 cm WT: 86.3 kg BMI: 25.11 Intake and Output 7AM Yesterday to 7AM Today Intake and Output (Last 24 hours) Intake Administration Information 1000.43 Oral Intake 320.00 Output Intra-Op EBL 250.00 Urine Count 3.00 Total Summary Total Intake 1320.43 Total Output 250.00 Fluid Balance 1070.43 Physical Exam Vital signs stable, afebrile SCDs and AILYN hose are in place bilaterally Dressing is clean dry and intact UltraSling fitting appropriately Sensation is intact to axillary, radial, median, and ulnar distribution Motor intact with patient able to make okay sign, cross fingers, and thumbs up Weight Dosing Weight: 86.3 kg (05/29/24) Dosing Weight: 86.3 kg (05/29/24) Medications Medications (21) Active Scheduled: (13) acetaminophen 500 mg Tablet 1,000 mg 2 tab(s), Oral, q6h aspirin 81 mg EC 81 mg 1 tab(s), Oral, BID atenolol 25 mg Tablet 25 mg 1 tab(s), Oral, Daily atorvastatin 10 mg tablet 10 mg 1 tab(s), Oral, Daily bisacodyl 5 mg EC tablet 10 mg 2 tab(s), Oral, Once docusate sodium 100 mg Capsule 100 mg 1 cap(s), Oral, BID docusate-senna (Senokot S) 50 mg-8.6 mg Tablet 2 tab(s), Oral, BID famotidine 20 mg tablet 20 mg 1 tab(s), Oral, qDay hydroxychloroquine 200 mg tablet 200 mg 1 tab(s), Oral, BID losartan 50 mg tablet 100 mg 2 tab(s), Oral, qDay magnesium hydroxide 8% Suspension 30 mL UD 30 mL, Oral, Daily ondansetron 2 mg/ 1 mL 2 mL INJ 4 mg 2 mL, IV Push, q8h tramadol 50 mg Tablet 50 mg 1 tab(s), Oral, q6hr Continuous: (1) Lactated Ringers 1,000 mL 1,000 mL, Intravenous, 100 mL/hr PRN: (7) acetaminophen 325 mg Tablet 650 mg 2 tab(s), Oral, q4h diphenhydramine 25 mg tablet 25 mg 1 tab(s), Oral, q6h diphenhyDRAMINE 50 mg/mL (1 mL) INJ 25 mg 0.5 mL, IV Push, q6h ondansetron 2 mg/ 1 mL 2 mL INJ 4 mg 2 mL, IV Push, q8h prochlorperazine 10 mg/2 mL vial 5 mg 1 mL, IV Push, q6h sodium biphosphate-sodium phosphate 19 gm-7 gm Enema 133 mL, Rectal, qDay tramadol 50 mg Tablet 50 mg 1 tab(s), Oral, q6h Lab Results 05/30 06:17 WBC: 14.4 H Hgb: 13.1 Hct: 37.5 L Platelet: 208 Neutrophil %: 86.7 H Glucose Level: 126 H Sodium Level: 135 L Potassium Level: 4.0 BUN: 25 H Creatinine Lvl (s): 1.04 EKG No qualifying data available. Assessment/Plan 1. 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 Continue pain medications: Tylenol and tramadol. We are avoiding nonsteroidal anti-inflammatories due to past history of complications with these medications. He does have tramadol at home. He was informed to contact our office if he needs any refill of this medication. 3. DVT prophylaxis: Take 81 mg aspirin twice daily with food for 2 weeks postoperatively for DVT prophylaxis. Patient denies past history of DVT or pulmonary embolism. After 2 weeks will then go back to normal 81 mg aspirin daily 4. Physical therapy: Continue with UltraSling at all times. Okay to take off sling for elbow range of motion and pendulum exercises 2-3 times daily. No range of motion of the operative shoulder. Will begin outpatient physical therapy after the 2-week follow-up at [facility]. 5. H & H: 13.1/37.5, asymptomatic. Postoperative drop in hemoglobin from surgery without intraoperative complications. At this time there is no need for treatment. 6. Reactive Leukocytosis: currently 14.4, afebrile. Patient did receive decadron intra-operatively. No clinical signs of infection. 7. Encouraged incentive spirometry 8. Continue postoperative medical management per medicine 9. Postoperative constipation: Discussed with the patient to continue stool softener until first bowel movement. After first bowel movement patient can then take as needed. They were also instructed that if they are not able to have a bowel movement within 3 days they are to contact our office for change of medication. Patient voiced understanding. 10. Disposition: Patient overall is doing well this morning. He has no complaints today. Plan will be for discharge home today as long as he remains medically stable, tolerates therapy, and pain is adequately controlled. I am okay with patient being discharged after physical therapy. Patient has all medications at home and no prescriptions will need to be sent to the pharmacy. He will follow-up per postoperative instructions. He does have outpatient physical therapy established. Upon discharge he will contact our office with any concerns or questions. I have reviewed the [place] Automated Rx Reporting System (OARRS) report for this patient for refill pattern and other prescriber involvement as part of the appropriate surveillance for the provision of acute and chronic controlled medications. The report was requested and reviewed on the date of this entry, and was considered in the prescribing process This dictation was created using voice recognition software. Phonetic and/or grammatical errors may exist. Digitally Signed by ROBERT CHARLES PA-C on 05/30/2024 07:39 AM [facility] 05-30-2024 Note Date of Service May 30, 2024 Subjective The patient was sitting in bed side chair upon examination. Patient denies any chest pain, shortness of breath, dizziness, lightheadedness, nausea or vomiting, or calf pain. No adverse overnight events. Pain has been controlled on medications. Patient overall is doing very well this morning. He has no complaints. Patient denies any numbness and tingling. Patient does have tramadol at home for discharge medications. Objective Vitals and Measurements T: 36.6 C (Oral) TMIN: 36 C TMAX: 36.6 C (Temporal Artery) HR: 53 (Monitored) RR: 18 BP: 104/62 SpO2: 100% HT: 185.4 cm WT: 86.3 kg BMI: 25.11 Intake and Output 7AM Yesterday to 7AM Today Intake and Output (Last 24 hours) Intake Administration Information 1000.43 Oral Intake 320.00 Output Intra-Op EBL 250.00 Urine Count 3.00 Total Summary Total Intake 1320.43 Total Output 250.00 Fluid Balance 1070.43 Physical Exam Vital signs stable, afebrile SCDs and AILYN hose are in place bilaterally Dressing is clean dry and intact UltraSling fitting appropriately Sensation is intact to axillary, radial, median, and ulnar distribution Motor intact with patient able to make okay sign, cross fingers, and thumbs up Weight Dosing Weight: 86.3 kg (05/29/24) Dosing Weight: 86.3 kg (05/29/24) Medications Medications (21) Active Scheduled: (13) acetaminophen 500 mg Tablet 1,000 mg 2 tab(s), Oral, q6h aspirin 81 mg EC 81 mg 1 tab(s), Oral, BID atenolol 25 mg Tablet 25 mg 1 tab(s), Oral, Daily atorvastatin 10 mg tablet 10 mg 1 tab(s), Oral, Daily bisacodyl 5 mg EC tablet 10 mg 2 tab(s), Oral, Once docusate sodium 100 mg Capsule 100 mg 1 cap(s), Oral, BID docusate-senna (Senokot S) 50 mg-8.6 mg Tablet 2 tab(s), Oral, BID famotidine 20 mg tablet 20 mg 1 tab(s), Oral, qDay hydroxychloroquine 200 mg tablet 200 mg 1 tab(s), Oral, BID losartan 50 mg tablet 100 mg 2 tab(s), Oral, qDay magnesium hydroxide 8% Suspension 30 mL UD 30 mL, Oral, Daily ondansetron 2 mg/ 1 mL 2 mL INJ 4 mg 2 mL, IV Push, q8h tramadol 50 mg Tablet 50 mg 1 tab(s), Oral, q6hr Continuous: (1) Lactated Ringers 1,000 mL 1,000 mL, Intravenous, 100 mL/hr PRN: (7) acetaminophen 325 mg Tablet 650 mg 2 tab(s), Oral, q4h diphenhydramine 25 mg tablet 25 mg 1 tab(s), Oral, q6h diphenhyDRAMINE 50 mg/mL (1 mL) INJ 25 mg 0.5 mL, IV Push, q6h ondansetron 2 mg/ 1 mL 2 mL INJ 4 mg 2 mL, IV Push, q8h prochlorperazine 10 mg/2 mL vial 5 mg 1 mL, IV Push, q6h sodium biphosphate-sodium phosphate 19 gm-7 gm Enema 133 mL, Rectal, qDay tramadol 50 mg Tablet 50 mg 1 tab(s), Oral, q6h Lab Results 05/30 06:17 WBC: 14.4 H Hgb: 13.1 Hct: 37.5 L Platelet: 208 Neutrophil %: 86.7 H Glucose Level: 126 H Sodium Level: 135 L Potassium Level: 4.0 BUN: 25 H Creatinine Lvl (s): 1.04 EKG No qualifying data available. Assessment/Plan 1. 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 Continue pain medications: Tylenol and tramadol. We are avoiding nonsteroidal anti-inflammatories due to past history of complications with these medications. He does have tramadol at home. He was informed to contact our office if he needs any refill of this medication. 3. DVT prophylaxis: Take 81 mg aspirin twice daily with food for 2 weeks postoperatively for DVT prophylaxis. Patient denies past history of DVT or pulmonary embolism. After 2 weeks will then go back to normal 81 mg aspirin daily 4. Physical therapy: Continue with UltraSling at all times. Okay to take off sling for elbow range of motion and pendulum exercises 2-3 times daily. No range of motion of the operative shoulder. Will begin outpatient physical therapy after the 2-week follow-up at [facility]. 5. H & H: 13.1/37.5, asymptomatic. Postoperative drop in hemoglobin from surgery without intraoperative complications. At this time there is no need for treatment. 6. Reactive Leukocytosis: currently 14.4, afebrile. Patient did receive decadron intra-operatively. No clinical signs of infection. 7. Encouraged incentive spirometry 8. Continue postoperative medical management per medicine 9. Postoperative constipation: Discussed with the patient to continue stool softener until first bowel movement. After first bowel movement patient can then take as needed. They were also instructed that if they are not able to have a bowel movement within 3 days they are to contact our office for change of medication. Patient voiced understanding. 10. Disposition: Patient overall is doing well this morning. He has no complaints today. Plan will be for discharge home today as long as he remains medically stable, tolerates therapy, and pain is adequately controlled. I am okay with patient being discharged after physical therapy. Patient has all medications at home and no prescriptions will need to be sent to the pharmacy. He will follow-up per postoperative instructions. He does have outpatient physical therapy established. Upon discharge he will contact our office with any concerns or questions. I have reviewed the [place] Automated Rx Reporting System (OARRS) report for this patient for refill pattern and other prescriber involvement as part of the appropriate surveillance for the provision of acute and chronic controlled medications. The report was requested and reviewed on the date of this entry, and was considered in the prescribing process This dictation was created using voice recognition software. Phonetic and/or grammatical errors may exist. Digitally Signed by ROBERT CHARLES PA-C on 05/30/2024 07:39 AM [facility] 05-29-2024 Note Exam Date Time Procedure Performing Provider Status 05/29/24 12:39 PM XR Shoulder Minimum 2 Views Left PERCY GALINDO MD; Auth (Verified) [id number] ORIGINAL EXAMINATION: TWO XRAY VIEWS OF THE LEFT SHOULDER05/29/2024 12:39 pm XR portable left shoulder two views COMPARISON: CT 03/26/2024 HISTORY: ORDERING SYSTEM PROVIDED HISTORY: Reason for Exam: S/P total shoulder, Status Post Arthroplasty , check prosthesis alignment FINDINGS: The glenohumeral joint has been replaced with a prosthesis that show satisfactory alignment. There are expected postoperative changes in the soft tissues. IMPRESSION: Expected postoperative appearance following left shoulder replacement surgery. 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 Assessment Postanesthesia assessment Vitals: Vital signs from flowsheet : Vital Signs 05/29/2024 12:20 EST Respiratory Rate - Anes 0 br/min br/min 05/29/2024 12:15 EST Heart Rate Monitored 82 bpm bpm Respiratory Rate - Anes 29 br/min br/min 05/29/2024 12:10 EST Heart Rate Monitored 50 bpm bpm Respiratory Rate - Anes 19 br/min br/min Systolic Blood Pressure Non-Invasive 110 mmHg mmHg Diastolic Blood Pressure Non-Invasive 48 mmHg mmHg 05/29/2024 12:05 EST Heart Rate Monitored 52 bpm bpm Respiratory Rate - Anes 18 br/min br/min Systolic Blood Pressure Non-Invasive 109 mmHg mmHg Diastolic Blood Pressure Non-Invasive 45 mmHg mmHg 05/29/2024 12:00 EST Heart Rate Monitored 51 bpm bpm Respiratory Rate - Anes 18 br/min br/min Systolic Blood Pressure Non-Invasive 113 mmHg mmHg Diastolic Blood Pressure Non-Invasive 44 mmHg mmHg 05/29/2024 11:55 EST Heart Rate Monitored 50 bpm bpm Respiratory Rate - Anes 17 br/min br/min Systolic Blood Pressure Non-Invasive 112 mmHg mmHg Diastolic Blood Pressure Non-Invasive 46 mmHg mmHg 05/29/2024 11:50 EST Heart Rate Monitored 50 bpm bpm Respiratory Rate - Anes 17 br/min br/min Systolic Blood Pressure Non-Invasive 103 mmHg mmHg Diastolic Blood Pressure Non-Invasive 43 mmHg mmHg 05/29/2024 11:45 EST Temperature (Route Not Specified) 36 DegC DegC Heart Rate Monitored 50 bpm bpm Respiratory Rate - Anes 16 br/min br/min Systolic Blood Pressure Non-Invasive 104 mmHg mmHg Diastolic Blood Pressure Non-Invasive 48 mmHg mmHg 05/29/2024 11:40 EST Heart Rate Monitored 51 bpm bpm Respiratory Rate - Anes 19 br/min br/min Systolic Blood Pressure Non-Invasive 114 mmHg mmHg Diastolic Blood Pressure Non-Invasive 45 mmHg mmHg 05/29/2024 11:35 EST Heart Rate Monitored 51 bpm bpm Respiratory Rate - Anes 18 br/min br/min Systolic Blood Pressure Non-Invasive 117 mmHg mmHg Diastolic Blood Pressure Non-Invasive 55 mmHg mmHg 05/29/2024 11:30 EST Temperature (Route Not Specified) 36 DegC DegC Heart Rate Monitored 52 bpm bpm Respiratory Rate - Anes 17 br/min br/min Systolic Blood Pressure Non-Invasive 105 mmHg mmHg Diastolic Blood Pressure Non-Invasive 45 mmHg mmHg 05/29/2024 11:25 EST Heart Rate Monitored 52 bpm bpm Respiratory Rate - Anes 22 br/min br/min Systolic Blood Pressure Non-Invasive 121 mmHg mmHg Diastolic Blood Pressure Non-Invasive 53 mmHg mmHg 05/29/2024 11:23 EST Systolic Blood Pressure Non-Invasive 117 mmHg mmHg Diastolic Blood Pressure Non-Invasive 55 mmHg mmHg 05/29/2024 11:20 EST Heart Rate Monitored 51 bpm bpm Respiratory Rate - Anes 13 br/min br/min Systolic Blood Pressure Non-Invasive 83 mmHg mmHg Diastolic Blood Pressure Non-Invasive 48 mmHg mmHg 05/29/2024 11:15 EST Temperature (Route Not Specified) 36 DegC DegC Heart Rate Monitored 51 bpm bpm Respiratory Rate - Anes 10 br/min br/min Systolic Blood Pressure Non-Invasive 83 mmHg mmHg Diastolic Blood Pressure Non-Invasive 51 mmHg mmHg 05/29/2024 11:13 EST Systolic Blood Pressure Non-Invasive 87 mmHg mmHg Diastolic Blood Pressure Non-Invasive 50 mmHg mmHg 05/29/2024 11:10 EST Heart Rate Monitored 51 bpm bpm Respiratory Rate - Anes 10 br/min br/min Systolic Blood Pressure Non-Invasive 74 mmHg mmHg Diastolic Blood Pressure Non-Invasive 46 mmHg mmHg 05/29/2024 11:05 EST Heart Rate Monitored 52 bpm bpm Respiratory Rate - Anes 10 br/min br/min Systolic Blood Pressure Non-Invasive 120 mmHg mmHg Diastolic Blood Pressure Non-Invasive 53 mmHg mmHg 05/29/2024 11:00 EST Temperature (Route Not Specified) 36 DegC DegC Heart Rate Monitored 51 bpm bpm Respiratory Rate - Anes 10 br/min br/min Systolic Blood Pressure Non-Invasive 81 mmHg mmHg Diastolic Blood Pressure Non-Invasive 49 mmHg mmHg 05/29/2024 10:55 EST Heart Rate Monitored 61 bpm bpm Respiratory Rate - Anes 8 br/min br/min Systolic Blood Pressure Non-Invasive 144 mmHg mmHg Diastolic Blood Pressure Non-Invasive 58 mmHg mmHg 05/29/2024 10:50 EST Heart Rate Monitored 63 bpm bpm Respiratory Rate - Anes 6 br/min br/min Systolic Blood Pressure Non-Invasive 75 mmHg mmHg Diastolic Blood Pressure Non-Invasive 51 mmHg mmHg 05/29/2024 10:45 EST Heart Rate Monitored 67 bpm bpm Respiratory Rate - Anes 5 br/min br/min Systolic Blood Pressure Non-Invasive 166 mmHg mmHg Diastolic Blood Pressure Non-Invasive 96 mmHg mmHg 05/29/2024 10:41 EST Systolic Blood Pressure Non-Invasive 149 mmHg mmHg Diastolic Blood Pressure Non-Invasive 76 mmHg mmHg 05/29/2024 10:40 EST Heart Rate Monitored 66 bpm bpm Respiratory Rate - Anes 0 br/min br/min 05/29/2024 8:43 EST Temperature Temporal Artery 36.6 DegC Apical Heart Rate 58 bpm LOW Respiratory Rate 12 br/min LOW Systolic Blood Pressure Non-Invasive 142 mmHg HI Diastolic Blood Pressure Non-Invasive 87 mmHg , Measurements from flowsheet . Mental status: alert & oriented x 4. Respiratory function: respirations are non-labored. Respiratory support: none. CV function: Normal rate. Cardiovascular support: none. Pain. Nausea status: see nursing documentation of medications. Postoperative hydration status: within normal limits. Digitally Signed by CHARLES MARTINEZ on 05/29/2024 12:26 PM [facility]02-11-2025 Anesthesiology Consult note Patient: LIA GALLEGOS Age: 83 years Sex: Male : 1940 Associated Diagnoses: None Author: CHARLES MARTINEZ Preoperative Information Time of last food or liquid consumption: 05/29/2024 00:00:00 Anesthesia history Patient's history: negative. Family's history: negative. Health Status Allergies: Allergic Reactions (Selected) NKA, Allergies (1) ActiveSeverityReaction NKANone Documented Current medications: (Selected) Inpatient Medications Ordered Cyklokapron IVPB: 2,000 mg, 20 mL, 0 mL/hr, Topical (INT), PREOP pharm Decadron: 10 mg, 1 mL, IV Push, AsDirected Documented Medications Documented Vitamin D3: 100 mcg, 1 tab(s), Oral, Daily, 90 tab(s), 0 Refill(s) aspirin 81 mg oral delayed release tablet: 81 mg, 1 tab(s), Oral, Daily, 0 Refill(s) atenolol 25 mg oral tablet: 25 mg, 1 tab(s), Oral, Daily, 0 Refill(s) atorvastatin 10 mg oral tablet: 10 mg, 1 tab(s), Oral, Daily, 0 Refill(s) esomeprazole 40 mg oral delayed release capsule: 40 mg, 1 cap(s), Oral, qDayAC, 0 Refill(s) hydroCHLOROthiazide 12.5 mg oral tablet: 12.5 mg, 1 tab(s), Oral, Daily, 0 Refill(s) hydroxychloroquine 200 mg oral tablet: 200 mg, 1 tab(s), Oral, BID, 60 tab(s), 0 Refill(s) valsartan 80 mg oral tablet: 80 mg, 1 tab(s), Oral, BID, 0 Refill(s), Medications (2) Active Scheduled: (2) dexamethasone 10 mg/mL (1mL) SDV 10 mg 1 mL, IV Push, AsDirected tranexamic acid 2,000 mg 20 mL, Topical (INT), PREOP pharm Continuous: (0) PRN: (0) Problem list: Medical HTN (hypertension) / SNOMED CT [id number] / Confirmed, Active Problems (4) GERD (gastroesophageal reflux disease) HTN (hypertension) Hyperlipidemia Osteoarthritis Histories Past Medical History: No active or resolved past medical history items have been selected or recorded. Family History: Prostate cancer Father Procedure history: Colonoscopy ([id number]). Laminectomy and discectomy ([id number]). Comments: 03/26/2024 11:01 RICKIE Mendez L4-5 Carpal tunnel release ([id number]). Comments: 03/26/2024 11:01 RICKIE Mendez Social History: Social & Psychosocial Habits Alcohol 4Risk Assessment: Denies Alcohol Use 03/26/2024 Use: Never Substance Abuse 4Risk Assessment: Denies Substance Abuse 03/26/2024 Use: Never Tobacco 03/26/2024 Tobacco Use: Former smoker, quit more Home/Environment 03/26/2024 Domestic Concerns None Lives In Single level home Marital Status of Patient if Patient Independent Adult: Unmarried Nutrition/Health 03/26/2024 Type of diet: Regular Eating Difficulties None Physical Examination Vital Signs 05/29/2024 11:25 EST Heart Rate Monitored 52 bpm bpm Respiratory Rate - Anes 22 br/min br/min Systolic Blood Pressure Non-Invasive 121 mmHg mmHg Diastolic Blood Pressure Non-Invasive 53 mmHg mmHg 05/29/2024 11:23 EST Systolic Blood Pressure Non-Invasive 117 mmHg mmHg Diastolic Blood Pressure Non-Invasive 55 mmHg mmHg 05/29/2024 11:20 EST Heart Rate Monitored 51 bpm bpm Respiratory Rate - Anes 13 br/min br/min Systolic Blood Pressure Non-Invasive 83 mmHg mmHg Diastolic Blood Pressure Non-Invasive 48 mmHg mmHg 05/29/2024 11:15 EST Temperature (Route Not Specified) 36 DegC DegC Heart Rate Monitored 51 bpm bpm Respiratory Rate - Anes 10 br/min br/min Systolic Blood Pressure Non-Invasive 83 mmHg mmHg Diastolic Blood Pressure Non-Invasive 51 mmHg mmHg 05/29/2024 11:13 EST Systolic Blood Pressure Non-Invasive 87 mmHg mmHg Diastolic Blood Pressure Non-Invasive 50 mmHg mmHg 05/29/2024 11:10 EST Heart Rate Monitored 51 bpm bpm Respiratory Rate - Anes 10 br/min br/min Systolic Blood Pressure Non-Invasive 74 mmHg mmHg Diastolic Blood Pressure Non-Invasive 46 mmHg mmHg 05/29/2024 11:05 EST Heart Rate Monitored 52 bpm bpm Respiratory Rate - Anes 10 br/min br/min Systolic Blood Pressure Non-Invasive 120 mmHg mmHg Diastolic Blood Pressure Non-Invasive 53 mmHg mmHg 05/29/2024 11:00 EST Temperature (Route Not Specified) 36 DegC DegC Heart Rate Monitored 51 bpm bpm Respiratory Rate - Anes 10 br/min br/min Systolic Blood Pressure Non-Invasive 81 mmHg mmHg Diastolic Blood Pressure Non-Invasive 49 mmHg mmHg 05/29/2024 10:55 EST Heart Rate Monitored 61 bpm bpm Respiratory Rate - Anes 8 br/min br/min Systolic Blood Pressure Non-Invasive 144 mmHg mmHg Diastolic Blood Pressure Non-Invasive 58 mmHg mmHg 05/29/2024 10:50 EST Heart Rate Monitored 63 bpm bpm Respiratory Rate - Anes 6 br/min br/min Systolic Blood Pressure Non-Invasive 75 mmHg mmHg Diastolic Blood Pressure Non-Invasive 51 mmHg mmHg 05/29/2024 10:45 EST Heart Rate Monitored 67 bpm bpm Respiratory Rate - Anes 5 br/min br/min Systolic Blood Pressure Non-Invasive 166 mmHg mmHg Diastolic Blood Pressure Non-Invasive 96 mmHg mmHg 05/29/2024 10:41 EST Systolic Blood Pressure Non-Invasive 149 mmHg mmHg Diastolic Blood Pressure Non-Invasive 76 mmHg mmHg 05/29/2024 10:40 EST Heart Rate Monitored 66 bpm bpm Respiratory Rate - Anes 0 br/min br/min 05/29/2024 8:43 EST Temperature Temporal Artery 36.6 DegC Apical Heart Rate 58 bpm LOW Respiratory Rate 12 br/min LOW Systolic Blood Pressure Non-Invasive 142 mmHg HI Diastolic Blood Pressure Non-Invasive 87 mmHg Vital Signs (last 24 hrs) Last Charted Temp Tkepfoug15.6 DegC (MAY 29 08:43) Heart Rate [id number] bpm (MAY 29:) NVF806 mmHg (MAY 29:) DBP53 mmHg (MAY 29:) Measurements from flowsheet : Measurements 05/29/2024 8:43 EST Height 185.4 cm Height in inches 73 inch(es) Admission Weight 86.3 kg Weight Lbs 189.9 lb [place] Body Weight 79.88 kg Admission Body Mass Index 25.11 m2 Pain assessment: Pain Assessment 05/29/2024 8:43 EST Primary Pain Intensity 0 Pain Scale Type 0-10 Pain scale . General: Alert and oriented. Airway: Normal temporomandibular joint mobility, Normal mouth, Normal neck range of motion, short tmd. Mallampati classification: III (soft palate, base of uvula visible). Dentition Evaluation: Denies loose/chipped teeth. Respiratory: Respirations are non-labored. Cardiovascular: Normal rate. Neurologic: Alert, Oriented. Review / Management Results review: No qualifying data available , Lab results 05/29/2024 11:31 EST SN - Implant - Implant/Explant Implant 05/29/2024 11:28 EST SN - Implant - Implant/Explant Implant 05/29/2024 11:26 EST SN - NE - Dose 1,000 mg SN - NE - Route of Administration Topical SN - NE - By (Single) SN - NE - By (Single) 05/29/2024 11:25 EST Heart Rate Monitored 52 bpm bpm Respiratory Rate - Anes 22 br/min br/min Systolic Blood Pressure Non-Invasive 121 mmHg mmHg Diastolic Blood Pressure Non-Invasive 53 mmHg mmHg Oxygen Saturation 100 % % 05/29/2024 11:24 EST fentaNYL 50 mcg mcg 05/29/2024 11:23 EST Systolic Blood Pressure Non-Invasive 117 mmHg mmHg Diastolic Blood Pressure Non-Invasive 55 mmHg mmHg 05/29/2024 11:20 EST SN - DRS - Immobilization Devices IMMOBILIZER SHOULDER LG [id number] 05/29/2024 11:20 EST Heart Rate Monitored 51 bpm bpm Respiratory Rate - Anes 13 br/min br/min Systolic Blood Pressure Non-Invasive 83 mmHg mmHg Diastolic Blood Pressure Non-Invasive 48 mmHg mmHg Oxygen Saturation 99 % % ePHEDrine 10 mg mg Set Rate Anes 13 br/min br/min 05/29/2024 11:19 EST phenylephrine 100 mcg mcg 05/29/2024 11:15 EST SN - Proc - Anesthesia Type General SN - Proc - Actual Procedure LEFT REVERSE TOTAL SHOULDER ARTHROPLASTY 05/29/2024 11:15 EST Temperature (Route Not Specified) 36 DegC DegC Heart Rate Monitored 51 bpm bpm Respiratory Rate - Anes 10 br/min br/min Systolic Blood Pressure Non-Invasive 83 mmHg mmHg Diastolic Blood Pressure Non-Invasive 51 mmHg mmHg Oxygen Saturation 99 % % Set Rate Anes 10 br/min br/min 05/29/2024 11:14 EST SN - Irl - Irrigant Normal Saline SN - Irl - Irrigant Sterile Water SN - Irl - Irrigant Normal Saline SN - IrI - Volume In 1,000 mL SN - IrI - Volume In 500 mL SN - IrI - Volume In 500 mL SN - Irl - Additive BOT 500ML SODIUM CHL 0.9% IRRI 18/CA [id number] SN - Irl - Additive Betadine Sterile Irrigation 500 mL SN - IrI - Volume Out 1,000 mL SN - IrI - Volume Out 500 mL SN - IrI - Volume Out 500 mL 05/29/2024 11:13 EST SN - SP - Prep Agents Chloraprep SN - SP - HR - Method N/A 05/29/2024 11:13 EST Systolic Blood Pressure Non-Invasive 87 mmHg mmHg Diastolic Blood Pressure Non-Invasive 50 mmHg mmHg 05/29/2024 11:12 EST SN - PP - Body Position Beach Chair Semi-Werner Standard Intra-op 05/29/2024 11:10 EST SN - PTCare - Anti-thromboembolism Mirna Sequential Compression Device (SCD) 05/29/2024 11:10 EST Heart Rate Monitored 51 bpm bpm Respiratory Rate - Anes 10 br/min br/min Systolic Blood Pressure Non-Invasive 74 mmHg mmHg Diastolic Blood Pressure Non-Invasive 46 mmHg mmHg Oxygen Saturation 99 % % Set Rate Anes 10 br/min br/min 05/29/2024 11:09 EST phenylephrine 100 mcg mcg succinylcholine 100 mg mg (In Error) 05/29/2024 11:08 EST SN - Assess - LOC Alert SN - Assess - Orientation Oriented X 3 SN - Assess - Post-op Skin Integrity Other See Comments 05/29/2024 11:07 EST SN - GCD - ASA Class 3 SN - GCD - Post-operative Diagnosis SECONDARY OSTEOARTHRITIS LEFT SHOULDER; LACERATION OF MUSCLES AND TENDONS OF THE ROTATOR CUFF OF LEFT SHOULDER. INITIAL ENCOUNTER SN - GCD - Case Level Level 4 05/29/2024 11:07 EST SN - Cul - Culture Type No Specimen per Surgeon 05/29/2024 11:06 EST SN - CAt - Case Attendee SN - CAt - Case Attendee SN - CAt - Role Performed Fish And Wildlife Technician 05/29/2024 11:05 EST Heart Rate Monitored 52 bpm bpm Respiratory Rate - Anes 10 br/min br/min Systolic Blood Pressure Non-Invasive 120 mmHg mmHg Diastolic Blood Pressure Non-Invasive 53 mmHg mmHg Oxygen Saturation 98 % % Set Rate Anes 10 br/min br/min 05/29/2024 11:04 EST SN - CTm - Surgery Start 05/29/2024 11:04 05/29/2024 11:04 EST SN - CTm - Surgery Start Surgery Start 05/29/2024 11:00 EST Temperature (Route Not Specified) 36 DegC DegC Heart Rate Monitored 51 bpm bpm Respiratory Rate - Anes 10 br/min br/min Systolic Blood Pressure Non-Invasive 81 mmHg mmHg Diastolic Blood Pressure Non-Invasive 49 mmHg mmHg Oxygen Saturation 100 % % ePHEDrine 10 mg mg phenylephrine 100 mcg mcg succinylcholine 100 mg mg (In Error) Set Rate Anes 10 br/min br/min 05/29/2024 10:57 EST acetaminophen 1,000 mg mg ondansetron 4 mg mg 05/29/2024 10:55 EST Heart Rate Monitored 61 bpm bpm Respiratory Rate - Anes 8 br/min br/min Systolic Blood Pressure Non-Invasive 144 mmHg mmHg Diastolic Blood Pressure Non-Invasive 58 mmHg mmHg Oxygen Saturation 99 % % Set Rate Anes 8 br/min br/min 05/29/2024 10:54 EST rocuronium 15 mg mg 05/29/2024 10:53 EST phenylephrine 100 mcg mcg succinylcholine 100 mg mg (In Error) 05/29/2024 10:50 EST Heart Rate Monitored 63 bpm bpm Respiratory Rate - Anes 6 br/min br/min Systolic Blood Pressure Non-Invasive 75 mmHg mmHg Diastolic Blood Pressure Non-Invasive 51 mmHg mmHg Oxygen Saturation 97 % % cefazolin 2 gram(s) gram(s) Sodium Chloride 0.9% 100 mL mL Set Rate Anes 8 br/min br/min 05/29/2024 10:45 EST Heart Rate Monitored 67 bpm bpm Respiratory Rate - Anes 5 br/min br/min Systolic Blood Pressure Non-Invasive 166 mmHg mmHg Diastolic Blood Pressure Non-Invasive 96 mmHg mmHg Oxygen Saturation 100 % % 05/29/2024 10:44 EST phenylephrine 100 mcg mcg succinylcholine 100 mg mg 05/29/2024 10:43 EST lidocaine 50 mg mg propofol 130 mg mg 05/29/2024 10:41 EST Systolic Blood Pressure Non-Invasive 149 mmHg mmHg Diastolic Blood Pressure Non-Invasive 76 mmHg mmHg 05/29/2024 10:40 EST Heart Rate Monitored 66 bpm bpm Respiratory Rate - Anes 0 br/min br/min Oxygen Saturation 96 % % 05/29/2024 10:37 EST SN - CTm - Anesthesia Start Time Anesthesia Start 05/29/2024 10:33 EST SN - CAt - Case Attendee SN - CAt - Case Attendee SN - CAt - Case Attendee SN - CAt - Case Attendee SN - CAt - Case Attendee SN - CAt - Case Attendee SN - CAt - Case Attendee SN - CAt - Case Attendee SN - CAt - Case Attendee SN - CAt - Case Attendee SN - CAt - Case Attendee SN - CAt - Case Attendee SN - CAt - Role Performed Primary Surgeon SN - CAt - Role Performed DEVELOPMENT PLANNER SN - CAt - Role Performed Boomswing Operator 1 SN - CAt - Role Performed Scrub 1 SN - CAt - Role Performed Short Goods Drier 1 SN - CAt - Role Performed Fish And Wildlife Technician 05/29/2024 10:05 EST dexAMETHasone 10 mg mg ROPivacaine 150 mg mg 05/29/2024 10:00 EST Time Out Procedure Verified Time Out Procedure Site Verified Yes Time Out Procedure Site Marked Yes Time Out Correct Patient Position Yes Consent Form Signed Yes Bedside Procedure Nerve Block Provider #1 Bedside Time Out CHARLES MARTINEZ APRN-DEVELOPMENT PLANNER Provider #2 Bedside Time Out Denise Rodriges RN NPO Status Maintained Allergy Band on and Verified No Patient ID Band on and Verified Yes Anesthesia Consent Signed Yes Blood Consent Signed Yes 05/29/2024 9:54 EST fentaNYL 50 mcg mcg midazolam 0.5 mg mg 05/29/2024 9:15 EST SN - Preop - CTm Pt in SDS Room 05/29/2024 8:27 SN - Preop - CTm Pt Ready for OR/Proced 05/29/2024 9:14 05/29/2024 9:13 EST citric acid-sodium citrate Not Done: Not Appropriate at this Time (Not Done) 05/29/2024 9:09 EST celecoxib 400 mg mg vancomycin 1,250 mg mg Lactated Ringers Injection 1,000 mL mL Sodium Chloride 0.9% 250 mL mL 05/29/2024 9:04 EST famotidine 20 mg mg 05/29/2024 8:51 EST Continuous IV Infusions NS Hand Right 05/29/2024 20 gauge Peripheral IV Activity: Insert new site Peripheral IV Dressing Condition: Clean, Dry, Intact Peripheral IV Dressing Activity: Applied, Transparent dressing Peripheral IV Line Status/Patency: Flushes easily, Continuous infusion Peripheral IV Site Condition: No complications Peripheral IV Equipment: Extension set, PRN Adaptor 05/29/2024 8:50 EST ABO/Rh Interp A NEG ABSC Interp (Gel) Negative ABSC 05/29/2024 8:43 EST Height 185.4 cm Height in inches 73 inch(es) Admission Weight 86.3 kg Weight Lbs 189.9 lb [place] Body Weight 79.88 kg Admission Body Mass Index 25.11 m2 Temperature Temporal Artery 36.6 DegC Apical Heart Rate 58 bpm LOW Respiratory Rate 12 br/min LOW Systolic Blood Pressure Non-Invasive 142 mmHg HI Diastolic Blood Pressure Non-Invasive 87 mmHg Primary Pain Intensity 0 Pain Scale Type 0-10 Pain scale Heart Rhythm Regular Respirations Unlabored Respiratory Pattern Regular All Lobes Breath Sounds Clear Oxygen Therapy Room air Oxygen Saturation 99 % Abdomen Description Non-distended Abdomen Palpation Non-Tender Bowel Sounds All Quadrants Present Urinary Elimination Voiding, no difficulties Skin Description [place], Normal for ethnicity, Dry Skin Temperature Warm Skin Integrity Intact Neurological Symptoms Patient denies Extremity Movement Equal Characteristics of Speech Clear Level of Consciousness Alert Strength All Extremities Strong Tone All Extremities Normal Sensation All Extremities Intact Affect/Behavior Appropriate Orientation Oriented x 4 Activity Status ADL Awake Sequential Compression Device bilateral knee high applied/on Antiembolism Stocking On/Re-applied bilateral thigh high Standard Safety ID band on, Call device within reach, Bed in low position, Wheels locked, Upper/Half-Length side-rails up, Safety level maintained, Non- Slip footwear 05/29/2024 8:37 EST IV Present Present Allergies No Anesthesia Extension Set Applied Yes Modeling Agent On Yes Consent Form Signed Yes Patient Dressed In Hospital gown CHG Preoperative Wash/Wipe Night before procedure, Day of procedure, Site specific wipe Preop Nasal Swab Povidone-Iodine CHG Skin Prep Completed for Eligible Surgery History & Physical Update On Chart Yes History & Physical On Chart Yes Obstructive Sleep Apnea Assess Completed Yes Belongings At Bedside Jacket, Luggage, Pants, Shirt, Shoes, Socks, Undergarments NPO Status Maintained Allergy Band on and Verified No Patient ID Band on and Verified Yes Implants Verified Yes Pacemaker/AICD Verified Yes Site Verified by Patient/Family Yes Anesthesia Consent Signed Yes Blood Consent Signed Yes Last Fluid Intake 05/28/2024 20:30 Last Food Intake 05/28/2024 21:30 Cardiac Clearance For Surgery By PITO BIRD MD 05/29/2024 8:36 EST Designated Person #1 We May Share JENNIFER HERNANDEZ [phone] Designated Person #1 Relationship Daughter Privacy Restrictions Requested None Status N/A Sensory Deficits None Sleep Apnea Snore No Sleep Apnea Tired No Sleep Apnea Obstruction No Sleep Apnea Pressure Yes Sleep Apnea BMI No Sleep Apnea Age Yes Sleep Apnea Neck No Sleep Apnea Gender Yes Sleep Apnea Score 3 Diagnosed With Sleep Apnea No Advanced Directives Yes Advance Directive Type [place] Durable Power of House [place] Declaration (Living Will) Advance Directive Location Patient instructed to bring in copy Infectious Disease Symptoms Patient states no symptoms Infectious Disease Recent Exposure No Alcohol and Drug Use No Employee of Institutional Living No Health Care Employee No History of Exposure to TB No History of Positive Chest X-Ray for TB No History of Positive TB Skin Test No Homeless No Known Immunosuppression No Recent Immigrant No Resident of Institutional Living No Bloody Sputum No Fatigue No Fever No Loss of Appetite No Night Sweats No Persistent Cough > 3 Weeks No Weight Loss No Barriers to Learning None evident Teaching Method Explanation, Printed materials Preferred Spoken Language Mongolian Preferred Written Language Mongolian Teaching Evaluation Verbalizes/Nonverbally indicates understanding Safety Brochure Information Reviewed Yes [facility] Video Viewed No Patient's Current Physicians Patient's Current Physicians Discharge To, Anticipated Home independently Prev Test Positive/Diagnosis w/COVID-19 No Current Quarantine/Isolated any Illness No Any Contact with Sick Animals/Birds No Traveled Anywhere in Last 30 Days No Lost Weight Unintentionally Recently No Eat Poorly Due to Decreased Appetite No Total MST Score 0 N/A Personal Devices, Patient Valuables None Anesthesia/Transfusions Prior anesthesia Admission Note-Nursing Same Day Patient History . Assessment and Plan [place] [employer] Anesthesi[employer] (ASA) physical status classification: Class III. Anesthetic Preoperative Plan Anesthetic technique: General. Postoperative pain management: interscalene. Informed consent: signed by patient. Digitally Signed by CHARLES MARTINEZ on 05/29/2024 11:33 AM [facility]01-28-2025 Evaluation note* Diagnosis Onset Date Resolution Status Admit Date Preoperative clearance chronic [facility] 2024 10:17am [facility] Work Phone: [phone]) 724-102306-19-2024 Hospital Discharge instructions Patient Education 10/04/2023 23:49:38 Diet for Vomiting or Diarrhea (Adult) Diet for Vomiting or Diarrhea (Adult) Your symptoms may return or get worse after eating certain foods listed below. If this happens, stop eating these foods until your symptoms ease and you feel better. Once the vomiting stops, follow the steps below. During the first 12 to 24 hours During the first 12 to 24 hours, follow this diet: Drinks. Plain water, sport drinks like electrolyte solutions, soft drinks without caffeine, mineralwater (plain or flavored), clear fruit juices, and decaffeinated tea and coffee. Soups. Clear broth. Desserts. Plain gelatin, popsicles, and fruit juice bars. As you feel better, you may add 6 to 8 ounces of yogurt per day. If you have diarrhea, don't have foods or drinks that contain sugar, high-fructose corn syrup, or sugar alcohols. During the next 24 hours During the next 24 hours you may add the following to the above: Hot cereal, plain toast, bread, rolls, and crackers Plain noodles, rice, mashed potatoes, and chicken noodle or rice soup Unsweetened canned fruit (but not pineapple) and bananas Don't eat more than 15 grams of fat a day. Do this by staying away from margarine, butter, oils, mayonnaise, sauces, gravies, fried foods, peanut butter, meat, poultry, and fish. Don't eat much fiber. Stay away from raw or cooked vegetables, fresh fruits (except bananas), and bran cereals. Limit how much caffeine and chocolate you have. Do not use any spices or seasonings except salt. During the next 24 hours Slowly go back to your normal diet, as you feel better and your symptoms ease. 3322-7428 [employer]. [address] [place] [address]. All rights reserved. This information is not intended as a substitute for professional medical care. Always follow yourhealthcare professional's instructions. Follow Up Care 10/04/2023 22:32:51 With:BARBARA MILLS DO Address: [address] [place] [address]- When:2-4 days [facility] 06-19-2024 Note Discharge Instructions Thank you for allowing [facility] to assist you with your healthcare needs. The following is importantdischarge information regarding your hospital visit. Diagnosis from Today's Visit Nausea and vomiting What to Do Next Instructions from Your Care Team No qualifying data available. Post Acute Orders No qualifying data available. You Need to Schedule the Following Appointments Follow Up with BARBARA MILLS DO When:Within 2-4 days Where:[address] [place] [address] [address] [place] [address]- Allergies NKA Medications Please ask your primary doctor or pharmacist before taking any other medication not listed, including over the counter drugs, herbal medications, vitamins and or supplements as they may interact withyour home medications. What How Much When Instructions Last Dose New ondansetron (ondansetron 4 mg oral tablet, disintegrating) 1 tab(s) by mouth Every 8 hours Duration: 5 Days Printed Prescription Unchanged esomeprazole (esomeprazole 40 mg oral delayed release capsule) 1 cap by mouth Two (2) times a day Unchanged gabapentin (gabapentin 100 mg oral capsule) 1 cap by mouth Three (3) times a day Unchanged hydrochlorothiazide-olmesartan (hydrochlorothiazide-olmesartan 12.5 mg-20 mg oral tablet) 1 tab(s) by mouth Every day Unchanged meloxicam (meloxicam 15 mg oral tablet) 1 tab(s) by mouth Once a day Unchanged traMADol (traMADol 50 mg oral tablet) 1 tab(s) by mouth Every 12 hours as needed for for pain Please take this list to your next doctor s visit. Bring all medications you take, including over the counter medications, herbals and other supplements with you to your doctor s visit. Patients and families are reminded to discard old lists and to update any records with all medication providers or retail pharmacies. Medication Leaflets ondansetron (oral) (cassidy riley) What is the most important information I should know about ondansetron? You should not use ondansetron if you are also using apomorphine (Apokyn). What is ondansetron? Ondansetron blocks the actions of chemicals in the body that can trigger nausea and vomiting. Ondansetron is used to prevent nausea and vomiting that may be caused by surgery, cancer chemotherapy, or radiation treatment. Ondansetron may be used for purposes not listed in this medication guide. What should I discuss with my health care provider before taking ondansetron? You should not use ondansetron if: you are also using apomorphine (Apokyn); or you are allergic to ondansetron or similar medicines (dolasetron, granisetron, palonosetron). To make sure ondansetron is safe for you, tell your doctor if you have: liver disease; an electrolyte imbalance (such as low levels of potassium or magnesium in your blood); congestive heart failure, slow heartbeats; a personal or family history of long QT syndrome; or a blockage in your digestive tract (stomach or intestines). Ondansetron is not expected to harm an unborn baby. Tell your doctor if you are . It is not known whether ondansetron passes into breast milk or if it could harm a nursing baby. Tell your doctor if you are breast-feeding a baby. Ondansetron is not approved for use by anyone younger than 4 years old. Ondansetron orally disintegrating tablets may contain phenylalanine. Tell your doctor if you have phenylketonuria (PKU). How should I take ondansetron? Follow all directions on your prescription label. Do not take this medicine in larger or smaller amounts or for longer than recommended. Ondansetron can be taken with or without food. The first dose of ondansetron is usually taken before the start of your surgery, chemotherapy, or radiation treatment. Follow your doctor's dosing instructions very carefully. Take the ondansetron regular tablet with a full glass of water. To take the orally disintegrating tablet (Zofran ODT): Keep the tablet in its blister pack until you are ready to take it. Open the package and peel back the foil. Do not push a tablet through the foil or you may damage the tablet. Use dry hands to remove the tablet and place it in your mouth. Do not swallow the tablet whole. Allow it to dissolve in your mouth without chewing. Swallow several times as the tablet dissolves. To use ondansetron oral soluble film (strip) (Zuplenz): Keep the strip in the foil pouch until you are ready to use the medicine. Using dry hands, remove the strip and place it on your tongue. It will begin to dissolve right away. Do not swallow the strip whole. Allow it to dissolve in your mouth without chewing. Swallow several times after the strip dissolves. If desired, you may drink liquid to help swallow the dissolved strip. Wash your hands after using Zuplenz. Measure liquid medicine with the dosing syringe provided, or with a special dose-measuring spoon ormedicine cup. If you do not have a dose-measuring device, ask your pharmacist for one. Store at room temperature away from moisture, heat, and light. Store liquid medicine in an upright position. What happens if I miss a dose? Take the missed dose as soon as you remember. Skip the missed dose if it is almost time for your next scheduled dose. Do not take extra medicine to make up the missed dose. What happens if I overdose? Seek emergency medical attention or call the Poison Help line at . Overdose symptoms may include sudden loss of vision, severe constipation, feeling light-headed, or fainting. What should I avoid while taking ondansetron? Ondansetron may impair your thinking or reactions. Be careful if you drive or do anything that requires you to be alert. What are the possible side effects of ondansetron? Get emergency medical help if you have signs of an allergic reaction: rash, hives; fever, chills, difficult breathing; swelling of your face, lips, tongue, or throat. Call your doctor at once if you have: severe constipation, stomach pain, or bloating; headache with chest pain and severe dizziness, fainting, fast or pounding heartbeats; fast or pounding heartbeats; jaundice (yellowing of the skin or eyes); blurred vision or temporary vision loss (lasting from only a few minutes to several hours); high levels of serotonin in the body--agitation, hallucinations, fever, fast heart rate, overactivereflexes, nausea, vomiting, diarrhea, loss of coordination, fainting. Common side effects may include: diarrhea or constipation; headache; drowsiness; or tired feeling. This is not a complete list of side effects and others may occur. Call your doctor for medical advice about side effects. You may report side effects to FDA at 4-546-PPC-2156. What other drugs will affect ondansetron? Ondansetron can cause a serious heart problem, especially if you use certain medicines at the same time, including antibiotics, antidepressants, heart rhythm medicine, antipsychotic medicines, and medicines to treat cancer, malaria, HIV or AIDS. Tell your doctor about all medicines you use, and those you start or stop using during your treatment with ondansetron. Taking ondansetron while you are using certain other medicines can cause high levels of serotonin to build up in your body, a condition called 'serotonin syndrome,' which can be fatal. Tell your doctor if you also use: medicine to treat depression; medicine to treat a psychiatric disorder; a narcotic (opioid) medication; or medicine to prevent nausea and vomiting. This list is not complete and many other drugs can interact with ondansetron. This includes prescription and [id number] medicines, vitamins, and herbal products. Give a list of all your medicines to any healthcare provider who treats you. Where can I get more information? Your pharmacist can provide more information about ondansetron. Remember, keep this and all other medicines out of the reach of children, never share your medicines with others, and use this medication only for the indication prescribed. Every effort has been made to ensure that the information provided by [employer] ('[employer]') is accurate, up-to-date, and complete, but no guarantee is made to that effect. Drug information contained herein may be time sensitive. [employer] information has been compiled for use by healthcare practitioners and consumers in the [place] and therefore [employer] does not warrant that uses outside of the [place] are appropriate, unless specifically indicated otherwise. [employer]'s drug information does not endorse drugs, diagnose patients or recommend therapy. [employer] drug information isan informational resource designed to assist licensed healthcare practitioners in caring for their p atients and/or to serve consumers viewing this service as a supplement to, and not a substitute for, the expertise, skill, knowledge and judgment of healthcare practitioners. The absence of a warningfor a given drug or drug combination in no way should be construed to indicate that the drug or drug combination is safe, effective or appropriate for any given patient. [employer] does not assume any responsibility for any aspect of healthcare administered with the aid of information be[employer] provides. The information contained herein is not intended to cover all possible uses, directions, precautions, warnings, drug interactions, allergic reactions, or adverse effects. If you have questions about the drugs you are taking, check with your doctor, nurse or pharmacist. Copyright 5687-9724 [employer]. Version: 16.. Revision Date: 11/18/2022. Education Materials Diet for Vomiting or Diarrhea (Adult) Your symptoms may return or get worse after eating certain foods listed below. If this happens, stop eating these foods until your symptoms ease and you feel better. Once the vomiting stops, follow the steps below. During the first 12 to 24 hours During the first 12 to 24 hours, follow this diet: Drinks. Plain water, sport drinks like electrolyte solutions, soft drinks without caffeine, mineralwater (plain or flavored), clear fruit juices, and decaffeinated tea and coffee. Soups. Clear broth. Desserts. Plain gelatin, popsicles, and fruit juice bars. As you feel better, you may add 6 to 8 ounces of yogurt per day. If you have diarrhea, don't have foods or drinks that contain sugar, high-fructose corn syrup, or sugar alcohols. During the next 24 hours During the next 24 hours you may add the following to the above: Hot cereal, plain toast, bread, rolls, and crackers Plain noodles, rice, mashed potatoes, and chicken noodle or rice soup Unsweetened canned fruit (but not pineapple) and bananas Don't eat more than 15 grams of fat a day. Do this by staying away from margarine, butter, oils, mayonnaise, sauces, gravies, fried foods, peanut butter, meat, poultry, and fish. Don't eat much fiber. Stay away from raw or cooked vegetables, fresh fruits (except bananas), and bran cereals. Limit how much caffeine and chocolate you have. Do not use any spices or seasonings except salt. During the next 24 hours Slowly go back to your normal diet, as you feel better and your symptoms ease. 7165-2743 [employer]. [address] [place] [address]. All rights reserved. This information is not intended as a substitute for professional medical care. Always follow yourhealthcare professional's instructions. Additional Information VACCINATE! IT SAVES LIVES! Members of the community who have not yet received the COVID-19 vaccine and would like to receive it can visit one of [facility] vaccine clinics. There are many vaccine clinic locations within the [facility]. For locations and available times, please visit www.gettheshot.coronavirus.[place].gov/. It is important to note that some COVID mobile vaccine clinics are held outdoors and may be canceled in rainy or stormy conditions. To learn more about pediatric vaccinations (ages 5-11), we invite you to visit the [facility] webpage. https://www.[facility].org/pages/7092-Mwaxd-Draaylxuccb-Twjyusussl-Ypgeo-Ysv stions.htmlTo learn more about the COVID-19 vaccine, we invite you to visit the CDC website for a list of frequently asked questions. https://www.cdc.gov/coronavirus/2019-ncov/vaccines/faq.html [facility] Patient Portal Access Instructions: Stay connected with your healthcare team and access your personal medical information anytime with the [facility] Patient Portal. If you would like a full copy of your medical records please contact the [facility] Medical Records Department Tuesday through Tuesday between 8a.m. and 4:30p.m. Please follow the directions below to access the portal: 1.Access the email account you provided upon [facility].2.Look for an invitation email from [facility].3.Open the email and access the invitation link: Accept [facility] to [facility].Fill in the required coronado to create your account. Sign into [email or web address].Find That File with your username and password that you created in the above steps to stay up to date. You can then view a summary of results, a summary of your visits, and the ability to download your summaries to your computer or send the information securely to a physician. Remember that your healthcare information is confidential, so carefully consider who you will allow to register on the [facility] Patient Portal for access to your information. You can also access the [facility] Patient Portal on the [employer] kelly. Simply click on Health Records under [employer] and then click on the [employer] logo. HOW TO SAFELY DISPOSE OF PRESCRIPTION MEDICATIONS Please use one of the following methods to safely dispose of your unused medications. 1.Use a drug disposal kit: the drug disposal pouch allows you to safely discard your old and unuseddrugs. Ask your nurse to give you one when you are discharged.2.Visit a local take-back location: Many local pharmacies and police departments have programs that collect old and unwanted prescriptiondrugs. Call your local pharmacy or go to http://bit.tradeNOW/7R0Hx8y to find one close to you.3.Make use of household items: Use cat litter or old coffee grounds to dispose medications if other options arenot available. Mix your drugs with these household products, seal them in an airtight container andthrow it into the garbage. Call [facility]: [phone] to be sure your drugs can be disposed of in this way. Some medicines may require a different approach.4.Never flush your medications down the toilet. IF YOU HAVE BEEN PRESCRIBED AN OPIOIDS FOR PAIN If you have been prescribed an opioid (such as hydrocodone, oxycodone or morphine), it is critical to understand the possible side effects and risks of opioid pain medications. Even when taken as directed, opioids can have several side effects including: Tolerance, meaning you might need to take more of a medication for the same pain relief. Nausea, vomiting and/or constipation. Sleepiness, dizziness, dry mouth, confusion, depression or itching. Physical dependence, meaning you have withdrawal symptoms when a medication is stopped ? this can develop within a few days. KNOW YOUR RESPONSIBILITIES It is important to know exactly how much and how often to take the opioid pain medications you are prescribed. Never take opioids in higher amounts or more often than prescribed. Do not combine opioids with alcohol or other drugs that cause drowsiness, such as benzodiazepines, also known as benzos,including diazepam and alprazolam, muscle relaxants or sleep aids. Never sell or share prescriptionopioids. This is illegal. Store opioids in a secure place and out of reach of others (including children, family, friends and visitors). The last page(s) of this document has been signed and retained as a CHART COPY Signatures Patient Education Materials Diet for Vomiting or Diarrhea (Adult) Medication Leaflets ondansetron (oral) My discharge plan and instructions have been reviewed and explained to me and I,LIA GALLEGOS understand my current condition and have read and understand these discharge instructions. I have received a written copy of the plan/instructions. If I have questions, I am aware that I should contact my doctor. 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 Atherosclerosis of the aorta. No focal consolidation or pulmonary edema. No pneumothorax or pleural effusion. No acute osseous abnormality. Right humeral head tendon fixation devices. IMPRESSION: No acute radiographic abnormality. I have personally reviewed the images of this examination and agree with the resident's findings and interpretation. Interpreted by: Humble Russell Preliminary Report By: Oscar Jefferson Electronically signed By Humble Russell Dictated Date: 10/04/2023 11:13:41 PM Prelim Date: 10/04/2023 11:14:42 PM Sign Date: 10/04/2023 11:19:30 PM Ordering Provider: SHILO [facility]06-18-2024 Note Sinus rhythm Left atrial enlargement This EKG was read and contributed directly to the care of the patient Electronic Signature: SHILO MARSH DO 10/04/2023 23:07:37[facility] 05-28-2024 Hospital Discharge instructions Patient Education 09/13/2023 00:21:41 Neck Sprain or Strain Neck Sprain or Strain A sudden force that causes turning or bending of the neck can cause sprain or strain. An example would be the force from a car accident. This can stretch or tear muscles called a strain. It can also stretch or tear ligaments called a sprain. Either of these can cause neck pain. Sometimes neck pain occurs after a simple awkward movement. In either case, muscle spasm is commonly present and contributes to the pain. Unless you had a forceful physical injury (for example, a car accident or fall), X-rays are often not ordered for the initial evaluation of neck pain. If pain continues and does not respond to medical treatment, X-rays and other tests may be done later. Home care You may feel more soreness and spasm the first few days after the injury. Rest until symptoms startto improve. When lying down, use a comfortable pillow or a rolled towel that supports the head and keeps the spine in a neutral position. The position of the head should not be tilted forward or backward. Apply an ice pack over the injured area for 15 to 20 minutes every 3 to 6 hours. Do this for the first 24 to 48 hours. You can make an ice pack by filling a plastic bag that seals at the top with icecubes and then wrapping it with a thin towel. After 48 hours, apply heat (warm shower or warm bath)for 15 to 20 minutes several times a day, or alternate ice and heat. You may use ppqd-lov-dlogqjk pain medicine to control pain, unless another pain medicine was prescribed. If you have chronic liver or kidney disease or ever had a stomach ulcer or gastrointestinal bleeding, talk with your healthcare provider before using these medicines. If a soft cervical collar was prescribed, only ear it for periods of increased pain. It should not be worn for more than 3 hours a day, or for longer than 1 to 2 weeks. Follow-up care Follow up with your healthcare provider, or as directed. Physical therapy may be needed. Sometimes fractures don t show up on the first X-ray. Bruises and sprains can sometimes hurt as much as a fracture. These injuries can take time to heal completely. If your symptoms don t improve or they get worse, talk with your healthcare provider. You may need a repeat X-ray or other tests. If X-rays were taken, you will be told of any new findings that may affect your care. Call 911 Call 911 if you have: Neck swelling, difficulty or painful swallowing Trouble breathing Chest pain When to seek medical advice Call your healthcare provider right away if any of these occur: Pain becomes worse or spreads into your arms or legs Weakness or numbness in one or both arms or legs 4272-8253 [employer]. [address] [place] [address]. All rights reserved. This information is not intended as a substitute for professional medical care. Always follow yourhealthcare professional's instructions. Follow Up Care 09/13/2023 00:11:29 With:BARBARA MILLS DO Address: [address] [place] [address] [address] [place] [address]- When:2-4 days [facility] 05-28-2024 Note Discharge Instructions Thank you for allowing [facility] to assist you with your healthcare needs. The following is importantdischarge information regarding your hospital visit. Diagnosis from Today's Visit Neck muscle strain What to Do Next Instructions from Your Care Team Do not drive or operate heavy machinery or climb any sort of heights or even use a sledgehammer while you are on a muscle relaxer Discharge Return to Work, School, or Sports (Return to Work, School, or Sports) - Ordered -- 09/14/23, May return to: work, 09/13/23 0:22:00 EDT Post Acute Orders No qualifying data available. You Need to Schedule the Following Appointments Follow Up with BARBARA MILLS DO When:Within 2-4 days Where:[address] [facility] [address] [place] [address]- Allergies NKA Medications Please ask your primary doctor or pharmacist before taking any other medication not listed, including over the counter drugs, herbal medications, vitamins and or supplements as they may interact withyour home medications. What How Much When Instructions Last Dose New lidocaine topical (lidocaine 5% topical patch) 1 patch(es) Topical Once a day Duration: 7 Days remove patches after 12 hours Printed Prescription New naproxen (naproxen 250 mg oral tablet) 1 tab(s) by mouth Two (2) times a day Duration: 7 Days Printed Prescription New orphenadrine (orphenadrine 100 mg oral tablet, extended release) 1 tab(s) by mouth Two (2) times a day Duration: 7 Days Printed Prescription Unchanged esomeprazole (esomeprazole 40 mg oral delayed release capsule) 1 cap by mouth Two (2) times a day Unchanged gabapentin (gabapentin 100 mg oral capsule) 1 cap by mouth Three (3) times a day Unchanged hydrochlorothiazide-olmesartan (hydrochlorothiazide-olmesartan 12.5 mg-20 mg oral tablet) 1 tab(s) by mouth Every day Unchanged meloxicam (meloxicam 15 mg oral tablet) 1 tab(s) by mouth Once a day Unchanged traMADol (traMADol 50 mg oral tablet) 1 tab(s) by mouth Every 12 hours as needed for for pain Please take this list to your next doctor s visit. Bring all medications you take, including over the counter medications, herbals and other supplements with you to your doctor s visit. Patients and families are reminded to discard old lists and to update any records with all medication providers or retail pharmacies. Education Materials Neck Sprain or Strain A sudden force that causes turning or bending of the neck can cause sprain or strain. An example would be the force from a car accident. This can stretch or tear muscles called a strain. It can also stretch or tear ligaments called a sprain. Either of these can cause neck pain. Sometimes neck pain occurs after a simple awkward movement. In either case, muscle spasm is commonly present and contributes to the pain. Unless you had a forceful physical injury (for example, a car accident or fall), X-rays are often not ordered for the initial evaluation of neck pain. If pain continues and does not respond to medical treatment, X-rays and other tests may be done later. Home care You may feel more soreness and spasm the first few days after the injury. Rest until symptoms startto improve. When lying down, use a comfortable pillow or a rolled towel that supports the head and keeps the spine in a neutral position. The position of the head should not be tilted forward or backward. Apply an ice pack over the injured area for 15 to 20 minutes every 3 to 6 hours. Do this for the first 24 to 48 hours. You can make an ice pack by filling a plastic bag that seals at the top with icecubes and then wrapping it with a thin towel. After 48 hours, apply heat (warm shower or warm bath)for 15 to 20 minutes several times a day, or alternate ice and heat. You may use prxx-ukw-diksgax pain medicine to control pain, unless another pain medicine was prescribed. If you have chronic liver or kidney disease or ever had a stomach ulcer or gastrointestinal bleeding, talk with your healthcare provider before using these medicines. If a soft cervical collar was prescribed, only ear it for periods of increased pain. It should not be worn for more than 3 hours a day, or for longer than 1 to 2 weeks. Follow-up care Follow up with your healthcare provider, or as directed. Physical therapy may be needed. Sometimes fractures don t show up on the first X-ray. Bruises and sprains can sometimes hurt as much as a fracture. These injuries can take time to heal completely. If your symptoms don t improve or they get worse, talk with your healthcare provider. You may need a repeat X-ray or other tests. If X-rays were taken, you will be told of any new findings that may affect your care. Call 911 Call 911 if you have: Neck swelling, difficulty or painful swallowing Trouble breathing Chest pain When to seek medical advice Call your healthcare provider right away if any of these occur: Pain becomes worse or spreads into your arms or legs Weakness or numbness in one or both arms or legs [id number] [employer]. [address] [place] [address]. All rights reserved. This information is not intended as a substitute for professional medical care. Always follow yourhealthcare professional's instructions. Additional Information VACCINATE! IT SAVES LIVES! Members of the community who have not yet received the COVID-19 vaccine and would like to receive it can visit one of [facility] vaccine clinics. There are many vaccine clinic locations within the [facility]. For locations and available times, please visit www.gettheshot.coronavirus.[place].gov/. It is important to note that some COVID mobile vaccine clinics are held outdoors and may be canceled in rainy or stormy conditions. To learn more about pediatric vaccinations (ages 5-11), we invite you to visit the [facility] webpage. https://www.[facility].org/pages/6020-Dlwxr-Dntppcgyiln-Jemndkfbzt-Jnhii-Sam stions.htmlTo learn more about the COVID-19 vaccine, we invite you to visit the CDC website for a list of frequently asked questions. https://www.cdc.gov/coronavirus/2019-ncov/vaccines/faq.html [facility] Patient Portal Access Instructions: Stay connected with your healthcare team and access your personal medical information anytime with the [facility] Patient Portal. If you would like a full copy of your medical records please contact the [facility] Medical Records Department Tuesday through Tuesday between 8a.m. and 4:30p.m. Please follow the directions below to access the portal: 1.Access the email account you provided upon [facility].2.Look for an invitation email from [facility].3.Open the email and access the invitation link: Accept Invitation to [facility]4.Fill in the required coronado to create your account. Sign into www.Find That File with your username and password that you created in the above steps to stay up to date. You can then view a summary of results, a summary of your visits, and the ability to download your summaries to your computer or send the information securely to a physician. Remember that your healthcare information is confidential, so carefully consider who you will allow to register on the [employer] Patient Portal for access to your information. You can also access the [employer] Patient Portal on the [employer] kelly. Simply click on Health Records under [employer] and then click on the [employer] logo. HOW TO SAFELY DISPOSE OF PRESCRIPTION MEDICATIONS Please use one of the following methods to safely dispose of your unused medications. 1.Use a drug disposal kit: the drug disposal pouch allows you to safely discard your old and unuseddrugs. Ask your nurse to give you one when you are discharged.2.Visit a local take-back location: Many local pharmacies and police departments have programs that collect old and unwanted prescriptiondrugs. Call your local pharmacy or go to http://[place]/6Y4Ih7w to find one close to you.3.Make use of household items: Use cat litter or old coffee grounds to dispose medications if other options arenot available. Mix your drugs with these household products, seal them in an airtight container andthrow it into the garbage. Call [facility]: [phone] to be sure your drugs can be disposed of in this way. Some medicines may require a different approach.4.Never flush your medications down the toilet. IF YOU HAVE BEEN PRESCRIBED AN OPIOIDS FOR PAIN If you have been prescribed an opioid (such as hydrocodone, oxycodone or morphine), it is critical to understand the possible side effects and risks of opioid pain medications. Even when taken as directed, opioids can have several side effects including: Tolerance, meaning you might need to take more of a medication for the same pain relief. Nausea, vomiting and/or constipation. Sleepiness, dizziness, dry mouth, confusion, depression or itching. Physical dependence, meaning you have withdrawal symptoms when a medication is stopped ? this can develop within a few days. KNOW YOUR RESPONSIBILITIES It is important to know exactly how much and how often to take the opioid pain medications you are prescribed. Never take opioids in higher amounts or more often than prescribed. Do not combine opioids with alcohol or other drugs that cause drowsiness, such as benzodiazepines, also known as benzos,including diazepam and alprazolam, muscle relaxants or sleep aids. Never sell or share prescriptionopioids. This is illegal. Store opioids in a secure place and out of reach of others (including children, family, friends and visitors). The last page(s) of this document has been signed and retained as a CHART COPY Signatures Patient Education Materials Neck Sprain or Strain Medication Leaflets My discharge plan and instructions have been reviewed and explained to me and I,LIA GALLEGOS understand my current condition and have read and understand these discharge instructions. I have received a written copy of the plan/instructions. If I have questions, I am aware that I should contact my doctor. Patient/Drum Sander Signature: Date/Time: Relationship to Patient: Witness Name/Signature: Date/Time: [facility]02-16-2023 NoteHNO ID: [id number] Author: Taran Cowan Service: ? Author Type: Physician Type: Progress Notes Filed: 06/03/2022 10:08 AM Note Text: Subjective: Patient presents to clinic c/o painful toenails. They state that the nails are especially painful with shoe gear and pressure. Patient states that nails 1-5 b/l are painful. No other pedal complaints at this time. Patient states no change in medications or medical history since last visit. Objective: Patient presents to clinic ambulating in sneakers Vasc: DP and PT pulses are faintly palpable bilateral. CFT is less than 5 seconds bilateral. Skin temperature is warm to cool proximal to distal bilateral. There is no edema or varicosities noted. Neuro: Protective sensation is intact to the foot and toes when tested with the 5.07 SWM bilateral. Vibratory sensation is decreased at the hallux IPJ bilateral. The hallux is downgoing bilateral. Derm: Nails 1-5 b/l are painful, discolored-yellow, thick, crumbly, dystrophic and with subungal debris. Skin is of normal turgor, texture and hair growth is present bilateral. There are no hyperkeratosis, ulcerations, scars, verruca or other lesions noted. Ortho: Muscle strength is 5/5 for all pedal groups tested. Ankle joint DF is full with the knee extended with no pain or crepitus noted. 1st MPJ ROM is full bilateral. Assessment: (Q82.8) Porokeratosis (primary encounter diagnosis) (B35.1) Onychomycosis (M79.675) Pain in toe of left foot (M79.674) Pain in toe of right foot Plan: Patient was seen and evaluated. Past porokeratosis appears resolved. Small amount of dry skin debrided with 15 blade to assure porokeratosis was resolved. In order to perform a complete physical exam, limited shaving of callus area was performed. This incidental service is integral to the evaluation and management visit in order to appropriately manage and treat the patient (for their complaint or for this visit). Nails 1-5 bilateral were debrided in length and thickness. Patient is to RTC in 3-[address] [facility]02-16-2023 NoteHNO ID: [id number] Author: Maira Beltran LPN Service: ? Author Type: LICENSED NURSE Type: Progress Notes Filed: 06/03/2022 10:08 AM Note Text: AMB ROOMING INTAKE FLOWSHEET DATA Pain Pain Level: 2 Pain Location: Foot-Left Description: Burning Duration Units: Minutes Frequency: Intermittent Intervention/Comfort measure: Reposition Patient presents with: Left Foot - Established Patient, Follow Up, Callous, nail care Right Foot - Established Patient, Follow Up, Callous, nail care [facility] of Present illness Narrative* Taran Cowan - 06/03/2022 9:56 AM EST Subjective: Patient presents to clinic c/o painful toenails. They state that the nails are especially painful with shoe gear and pressure. Patient states that nails 1-5 b/l are painful. No other pedal complaints at this time. Patient states no change in medications or medical history since last visit. Objective: Patient presents to clinic ambulating in [facility] Vasc: DP and PT pulses are faintly palpable bilateral. CFT is less than 5 seconds bilateral. Skin temperature is warm to cool proximal to distal bilateral. There is no edema or varicosities noted. Neuro: Protective sensation is intact to the foot and toes when tested with the 5.07 SWM bilateral.Vibratory sensation is decreased at the hallux IPJ bilateral. The hallux is downgoing bilateral. Derm: Nails 1-5 b/l are painful, discolored-yellow, thick, crumbly, dystrophic and with subungal debris. Skin is of normal turgor, texture and hair growth is present bilateral. There are no hyperkeratosis, ulcerations, scars, verruca or other lesions noted. Ortho: Muscle strength is 5/5 for all pedal groups tested. Ankle joint DF is full with the knee extended with no pain or crepitus noted. 1st MPJ ROM is full bilateral. Assessment: (Q82.8) Porokeratosis (primary encounter diagnosis) (B35.1) Onychomycosis (M79.675) Pain in toe of left foot (M79.674) Pain in toe of right foot Plan: Patient was seen and evaluated. Past porokeratosis appears resolved. Small amount of dry skin debrided with 15 blade to assure porokeratosis was resolved. In order to perform a complete physical exam, limited shaving of callus areawas performed. This incidental service is integral to the evaluation and management visit in order to appropriately manage and treat the patient (for their complaint or for this visit). Nails 1-5 bilateral were debrided in length and thickness. Patient is to RTC in 3-4 months. Taran Cowan DPM * Maira Beltran LPN - 06/03/2022 9:46 AM EST AMB ROOMING INTAKE FLOWSHEET DATA Pain Pain Level: 2 Pain Location: Foot-Left Description: Burning Duration Units: Minutes Frequency: Intermittent Intervention/Comfort measure: Reposition Patient presents with: Left Foot - Established Patient, Follow Up, Callous, nail care Right Foot - Established Patient, Follow Up, Callous, nail care Maira Beltran LPN [facility] NoteHNO ID: [id number] Author: Taran Cowan Service: ? Author Type: Physician Type: Progress Notes Filed: 03/18/2022 12:36 PM Note Text: Subjective: Patient presents to clinic c/o painful toenails. They state that the nails are especially painful with shoe gear and pressure. Patient states that nails 1-5 b/l are painful. Patient complains of callus to left 3rd metatarsal head. No other pedal complaints at this time. Patient states no change in medications or medical history since last visit. Objective: Patient presents to clinic ambulating in [facility] Vasc: DP and PT pulses are palpable bilateral. CFT is less than 5 seconds bilateral. Skin temperature is warm to cool proximal to distal bilateral. There is no edema or varicosities noted. Neuro: Protective sensation is intact to the foot and toes when tested with the 5.07 SWM bilateral. Vibratory sensation is decreased at the hallux IPJ bilateral. The hallux is downgoing bilateral. Derm: Nails 1-5 b/l are painful, discolored-yellow, thick, crumbly, dystrophic and with subungal debris. Skin is of normal turgor, texture and hair growth is present bilateral. Porokeratosis is present to left 3rd metatarsal head. No ulcerations, scars, verruca or other lesions noted. Ortho: Muscle strength is 5/5 for all pedal groups tested. Ankle joint DF is full with the knee extended with no pain or crepitus noted. 1st MPJ ROM is full bilateral. Assessment: (Q82.8) Porokeratosis (primary encounter diagnosis) (B35.1) Onychomycosis (M79.675) Pain in toe of left foot (M79.674) Pain in toe of right foot Plan: Patient was seen and evaluated. Nails 1-5 bilateral were debrided in length and thickness. Porokeratosis reduced to left foot with 15 blade. Tca applied under occlusion. Patient is to RTC in 3-4 months. Taran Cowan D[facility] NoteHNO ID: [id number] Author: Jen Larkin RN Service: ? Author Type: Registered Nurse Type: Progress Notes Filed: 03/18/2022 12:36 PM Note Text: AMB ROOMING INTAKE FLOWSHEET DATA Risk Screening Do you have concerns about personal safety or safety in the home?: No Pain Pain Level: 6 (when standing) Pain Location: Foot-Left Description: Sharp Duration Units: Unknown Frequency: Intermittent Intervention/Comfort measure: Reposition, Distractions, Relaxation Patient presents with: Left Foot - Established Patient, Follow Up, Callous, nail care Right Foot - Established [facility] NoteHNO ID: [id number] Author: Taran Cowan Service: ? Author Type: Physician Type: Progress Notes Filed: 12/28/2021 10:37 AM Note Text: Initial Podiatric Office Visit: Chief Complaint: This 81 year old male who presents with chief complaint:painful wart of left foot HPI Patient presents to clinic for evaluation of plantar left foot He has painful wart vs callus of left foot that he sees another strategic planning director for. Patient states that they shave the callus down and he follows up every 2 months. Prior to seeing his recent strategic planning director, he was given a pad by [facility] provider which did help. He is here to discuss options. PAIN EVALUATION 12/28/2021 0928 Pain Level: 10 Pain Location: Foot-Left Description: Sharp Duration Amount of Time: 1 Duration Units: Months Frequency: Intermittent Intervention/Comfort measure: Reposition;Relaxation No results found for: HBA1C PCP: No primary care provider on file. PAST MEDICAL HISTORY Diagnosis Date Acute gastritis without mention of hemorrhage Diverticulosis of colon (without mention of hemorrhage) Esophageal reflux Essential hypertension, benign Internal hemorrhoids without mention of complication Other and unspecified hyperlipidemia PMH - PAST MEDICAL HISTORY OF right shoulder pain and left arm ache Current Outpatient Medications Medication Sig omeprazole (PRILOSEC) 20 mg capsule Take 20 mg by mouth twice daily. Valsartan-Hydrochlorothiazide (DIOVAN HCT) 160-12.5 mg per tablet Take 0.5 tablets by mouth twice daily. THERAPEUTIC MULTIVITAMIN TAB .QD ciprofloxacin HCl (CIPRO) 250 mg tablet Take 1 tablet by mouth twice daily. meloxicam (MOBIC) 15 mg tablet Take 1 tablet by mouth once daily. Take with food. (Patient not taking: Reported on 12/28/2021) ranitidine (ZANTAC) 150 mg tablet Take 1 tablet by mouth twice daily. aspirin, enteric coated (ASPIRIN, ENTERIC COATED) 81 mg EC tablet Take 1 tablet by mouth once daily. diphenhydrAMINE (ALER-CAP) 25 mg capsule Take 1 capsule by mouth every 6 hours as needed. (Patient not taking: Reported on 12/28/2021) No current facility-administered medications for this visit. ALLERGIES No Known Allergies PAST SURGICAL HISTORY Procedure Laterality Date COLONOSCOPY - DIAGNOSTIC 1999 COLONOSCOPY FLX DX W/COLLJ SPEC WHEN PFRMD 10/03/06 EGD TRANSORAL BIOPSY SINGLE/MULTIPLE 01/13/06 FAMILY HISTORY Problem Relation Age of Onset Prostate Cancer Father age 69 Social History Tobacco Use Smoking status: Never Smokeless tobacco: Never Substance Use Topics Alcohol use: No REVIEW OF SYSTEMS GENERAL: Negative for Malaise, significant weight loss, fever RESPIRATORY: Negative for cough, wheezing and shortness of breath CARDIOVASCULAR: Negative for chest pain, leg swelling and palpitations GI: Negative for abdominal discomfort, blood in stools or black stools and change in bowel habits : Negative for dysuria, frequency and incontinence MUSCULOSKELETAL: Negative for joint pain or swelling, back pain, and muscle pain. SKIN: Negative for lesions, rash, and itching. HEMATOLOGY/LYMPHOLOGY Negative for prolonged bleeding, bruising easily, and swollen nodes. ENDOCRINE: Negative for cold or heat intolerance, polyuria, polydipsia and goiter. NEURO: negative Physical Exam: Constitutional: Pt is a well developed 81 year old male who is alert, oriented and cooperative Eyes: Following during examination. No redness or drainage. Respiratory: RR normal and nonlabored. Even breathing. No evidence of distress or shortness of breath. Psychology: Patient is engaged during conversation. Normal affect and mood. Does not appear depressed or anxious during encounter. 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 History and physical examination performed. 2. Painful porokeratosis debrided today with 15 blade. Tca applied under occlusion. Post instructions provided 3. Recommend gel inserts and use of padding for offloading 4. F/u prn 5. Recurrence is likely. Taran Cowan DPM Podiatry [address] [facility] [address] Dept: [phone] [facility] NoteHNO ID: [id number] Author: Diya Rashid RN Service: ? Author Type: ? Type: Progress Notes Filed: 12/28/2021 10:37 AM Note Text: AMB ROOMING INTAKE FLOWSHEET DATA Risk Screening Do you have concerns about personal safety or safety in the home?: No Pain Pain Level: 10 Pain Location: Foot-Left Description: Sharp Duration Amount of Time: 1 Duration Units: Months Frequency: Intermittent Intervention/Comfort measure: Reposition, Relaxation Patient presents with: Left Foot - New Patient, LESION, SKIN Patient c/o wart vs callus to L plantar foot. Ongoing for awhile but most recently bothersome in the past month. Has gone to a strategic planning director in the past for debridement.[facility] Instructions* Patient Instructions* Taran Cowan - 12/28/2021 9:51 AM EDT Trichloroacetic acid (TCA) has been applied to the plantar warts. Rinse off in 12 hours and keep clean and dry. May bathe and shower normally starting the day after treatment The area is expected to burn and blister in about 1-3 days, if painful soak in plain, cool water. If blistered, you may drain the blister with a clean, STERILIZED needle and apply OTC antibiotic ointment and band aid to area. Repeat 2-3 times daily as needed. Tylenol or Aleve as needed for pain, provided you have no allergies to either of these. Keep scheduled follow up appointment to have wart(s) re-evaluated and/or additional treatments. [facility] of Present illness Narrative* Taran Cowan - 12/28/2021 9:43 AM EDT Initial Podiatric Office Visit: Chief Complaint: This 81 year old male who presents with chief complaint:painful wart of left foot HPI Patient presents to clinic for evaluation of plantar left foot He has painful wart vs callus of left foot that he sees another strategic planning director for. Patient states thatthey shave the callus down and he follows up every 2 months. Prior to seeing his recent strategic planning director, he was given a pad by [facility] provider which did help. He is here to discuss options. PAIN EVALUATION 12/28/2021 0928 Pain Level: 10 Pain Location: Foot-Left Description: Sharp Duration Amount of Time: 1 Duration Units: Months Frequency: Intermittent Intervention/Comfort measure: Reposition;Relaxation No results found for: HBA1C PCP: No primary care provider on file. PAST MEDICAL HISTORY Diagnosis Date Acute gastritis without mention of hemorrhage Diverticulosis of colon (without mention of hemorrhage) Esophageal reflux Essential hypertension, benign Internal hemorrhoids without mention of complication Other and unspecified hyperlipidemia PMH - PAST MEDICAL HISTORY OF right shoulder pain and left arm ache Current Outpatient Medications Medication Sig omeprazole (PRILOSEC) 20 mg capsule Take 20 mg by mouth twice daily. Valsartan-Hydrochlorothiazide (DIOVAN HCT) 160-12.5 mg per tablet Take 0.5 tablets by mouth twice daily. THERAPEUTIC MULTIVITAMIN TAB .QD ciprofloxacin HCl (CIPRO) 250 mg tablet Take 1 tablet by mouth twice daily. meloxicam (MOBIC) 15 mg tablet Take 1 tablet by mouth once daily. Take with food. (Patient not taking: Reported on 12/28/2021) ranitidine (ZANTAC) 150 mg tablet Take 1 tablet by mouth twice daily. aspirin, enteric coated (ASPIRIN, ENTERIC COATED) 81 mg EC tablet Take 1 tablet by mouth once daily. diphenhydrAMINE (ALER-CAP) 25 mg capsule Take 1 capsule by mouth every 6 hours as needed. (Patient not taking: Reported on 12/28/2021) No current facility-administered medications for this visit. ALLERGIES No Known Allergies PAST SURGICAL HISTORY Procedure Laterality Date COLONOSCOPY - DIAGNOSTIC 1999 COLONOSCOPY FLX DX W/COLLJ SPEC WHEN PFRMD 10/03/06 EGD TRANSORAL BIOPSY SINGLE/MULTIPLE 01/13/06 FAMILY HISTORY Problem Relation Age of Onset Prostate Cancer Father age 69 Social History Tobacco Use Smoking status: Never Smokeless tobacco: Never Substance Use Topics Alcohol use: No REVIEW OF SYSTEMS GENERAL: Negative for Malaise, significant weight loss, fever RESPIRATORY: Negative for cough, wheezing and shortness of breath CARDIOVASCULAR: Negative for chest pain, leg swelling and palpitations GI: Negative for abdominal discomfort, blood in stools or black stools and change in bowel habits : Negative for dysuria, frequency and incontinence MUSCULOSKELETAL: Negative for joint pain or swelling, back pain, and muscle pain. SKIN: Negative for lesions, rash, and itching. HEMATOLOGY/LYMPHOLOGY Negative for prolonged bleeding, bruising easily, and swollen nodes. ENDOCRINE: Negative for cold or heat intolerance, polyuria, polydipsia and goiter. NEURO: negative Physical Exam: Constitutional: Pt is a well developed 81 year old male who is alert, oriented and cooperative Eyes: Following during examination. No redness or drainage. Respiratory: RR normal and nonlabored. Even breathing. No evidence of distress or shortness of breath. Psychology: Patient is engaged during conversation. Normal affect and mood. Does not appear depressed or anxious during encounter. 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 History and physical examination performed. 2. Painful porokeratosis debrided today with 15 blade. Tca applied under occlusion. Post instructions provided 3. Recommend gel inserts and use of padding for offloading 4. F/u prn 5. Recurrence is likely. Taran Cowan DPM Podiatry [address] [place], [place] [address] [facility] [address] Dept: [phone] Dept * Diya Rashid RN - 12/28/2021 9:27 AM EDT AMB ROOMING INTAKE FLOWSHEET DATA Risk Screening Do you have concerns about personal safety or safety in the home?: No Pain Pain Level: 10 Pain Location: Foot-Left Description: Sharp Duration Amount of Time: 1 Duration Units: Months Frequency: Intermittent Intervention/Comfort measure: Reposition, Relaxation Patient presents with: Left Foot - New Patient, LESION, SKIN Patient c/o wart vs callus to L plantar foot. Ongoing for awhile but most recently bothersome in the past month. Has gone to a strategic planning director in the past for debridement. documented [facility] Future Appointments Appointment Date:09/16/2023 09:00:00 AM Scheduled Provider: Location:[facility] Appointment Type:PT [facility] Appointment Date:09/19/2023 09:00:00 AM Scheduled Provider: Location:[facility] Appointment Type:PT [facility] Appointment Date:09/21/2023 09:00:00 AM Scheduled Provider: Location:[facility] Appointment Type:PT Treatment - [facility] Evaluation + Plan note Future Appointments [facility] Evaluation + Plan note Future Appointments Appointment Date:06/12/2024 09:00:00 AM Scheduled Provider:Clint Singer PT Location:[facility] Appointment Type:PT Outpatient Evaluation [facility] Evalufzqsb noteNo assessment information available [facility] Work Phone: evaluation note* Diagnosis Onset Date Resolution Status Shingles acute [facility] Work Phone: Evaluation note* Diagnosis Porokeratosis- Primary Other specified congenital anomaly of skin documented in this encounter [facility]* Diagnosis Onset Date Resolution Status Shingles acute Cerebellar stroke syndrome a cute DIFFICULTY AMBULATING acute GERD (gastroesophageal reflux disease) chronic Hypertension chronic [facility] Work Phone: Evaluation note* Diagnosis Onset Date Resolution Status Shingles resolved DIFFICULTY AMBULATING resolv ed Hypokalemia resolved Vertigo resolved [facility] Work Phone: Evaluation note* Diagnosis Porokeratosis- Primary Other specified congenital anomaly of skin Onychomycosis Dermatophytosis of nail Pain in toe of left foot Pain in limb Pain in toe of right foot Pain in limb [facility]* Diagnosis Occlusion and stenosis of right carotid artery documented in this encounter [facility] Work Phone: Hospital course Narrative No data available for this section [facility] Hospital Discharge instructions No data available for this section [facility] Instructions* Name Dates Details Patient Instructions Indication:Other and unspecified hyperlipidemia Start:28-Apr-2020 Instruction Type:Provider Instructions for Treatment How to Access Health Informa tion Online using Patient Portal and [employer] Indication:Other and unspecified hyperlipidemia Start:28-Apr-2020 Instruction Type:Patient Education How to access health informa tion online Indication:Neuropathy Start:18-Mar-2020 Instruction Type:Patient Education How to access health informa tion online Indication:Neuropathy Start:18-Mar-2020 Instruction Type:Patient Education Patient Instructions Indication:Neuropathy Start:18-Mar-2020 Instruction Type:Provider Instructions for Treatment How to access health informa tion online Indication:Skin tear of right upper extremity Start:02-Jan-2020 Instruction Type:Patient Education How to access health informa tion online - Detail Indication:Skin tear of right upper extremity Start:02-Jan-2020 Instruction Type:Patient Education Patient Instructions Indication:Skin tear of right upper extremity Start:02-Jan-2020 Instruction Type:Provider Instructions for Treatment How to access health informa tion online Indication:BMI 25.0-25.9,adult Start:24-Oct-2019 Instruction Type:Patient Education How to access health informa tion online - Detail Indication:BMI 25.0-25.9,adult Start:24-Oct-2019 Instruction Type:Patient Education Patient Instructions Indication:BMI 25.0-25.9,adult Start:24-Oct-2019 Instruction Type:Provider Instructions for Treatment How to access health informa tion online Indication:Nonsmoker Start:17-Jul-2019 Instruction Type:Patient Education How to access health informa tion online - Detail Indication:Nonsmoker Start:17-Jul-2019 Instruction Type:Patient Education Patient Instructions Indication:Nonsmoker Start:17-Jul-2019 Instruction Type:Provider Instructions for Treatment How to access health informa tion online Indication:Joint pain Start:10-Jul-2019 Instruction Type:Patient Education How to access health informa tion online - Detail Indication:Joint pain Start:10-Jul-2019 Instruction Type:Patient Education Patient Instructions Indication:Joint pain Start:10-Jul-2019 Instruction Type:Provider Instructions for Treatment How to access health informa tion online Indication:Sore throat Start:10-Nov-2015 Instruction Type:Patient Education How to access health informa tion online - Detail Indication:Sore throat Start:10-Nov-2015 Instruction Type:Patient Education Patient Instructions Indication:Sore throat Start:10-Nov-2015 Instruction Type:Provider Instructions for Treatment How to access health informa tion online Indication:PRE-OPERATIVE EXAMINATION, UNSPECIFIED Start:07-Mar-2015 Instruction Type:Patient Education How to access health informa tion online - Detail Indication:PRE-OPERATIVE EXAMINATION, UNSPECIFIED Start:07-Mar-2015 Instruction Type:Patient Education Patient Instructions Indication:PRE-OPERATIVE EXAMINATION, UNSPECIFIED Start:07-Mar-2015 Instruction Type:Provider Instructions for Treatment Patient Instructions Indication:Hypertension Start:08-Jul-2014 Instruction Type:Provider Instructions for Treatment How to access health informa tion online Indication:Other and unspecified hyperlipidemia Start:19-Nov-2013 Instruction Type:Patient Education How to access health informa tion online - Detail Indication:Other and unspecified hyperlipidemia Start:19-Nov-2013 Instruction Type:Patient Education Patient Instructions Indication:GERD (gastroesophageal reflux disease) Start:19-Nov-2013 Instruction Type:Provider Instructions for Treatment Patient Instructions Indication:Impaired Fasting Glucose Start:25-Apr-2013 Instruction Type:Provider Instructions for Treatment Patient Instructions Indication:Hypertension Start:14-Aug-2012 Instruction Type:Provider Instructions for Treatment Patient Instructions Indication:Impaired Fasting Glucose Start:03-Apr-2012 Instruction Type:Provider Instructions for Treatment [facility] Work Phone: Instructions* Name Dates Details Patient Instructions Indication:Other and unspecified hyperlipidemia Start:28-Apr-2020 Instruction Type:Provider Instructions for Treatment How to Access Health Informa tion Online using Patient Portal and [employer] Indication:Other and unspecified hyperlipidemia Start:28-Apr-2020 Instruction Type:Patient Education How to access health informa tion online Indication:Neuropathy Start:18-Mar-2020 Instruction Type:Patient Education How to access health informa tion online Indication:Neuropathy Start:18-Mar-2020 Instruction Type:Patient Education Patient Instructions Indication:Neuropathy Start:18-Mar-2020 Instruction Type:Provider Instructions for Treatment How to access health informa tion online Indication:Skin tear of right upper extremity Start:02-Jan-2020 Instruction Type:Patient Education How to access health informa tion online - Detail Indication:Skin tear of right upper extremity Start:02-Jan-2020 Instruction Type:Patient Education Patient Instructions Indication:Skin tear of right upper extremity Start:02-Jan-2020 Instruction Type:Provider Instructions for Treatment How to access health informa tion online Indication:BMI 25.0-25.9,adult Start:24-Oct-2019 Instruction Type:Patient Education How to access health informa tion online - Detail Indication:BMI 25.0-25.9,adult Start:24-Oct-2019 Instruction Type:Patient Education Patient Instructions Indication:BMI 25.0-25.9,adult Start:24-Oct-2019 Instruction Type:Provider Instructions for Treatment How to access health informa tion online Indication:Nonsmoker Start:17-Jul-2019 Instruction Type:Patient Education How to access health informa tion online - Detail Indication:Nonsmoker Start:17-Jul-2019 Instruction Type:Patient Education Patient Instructions Indication:Nonsmoker Start:17-Jul-2019 Instruction Type:Provider Instructions for Treatment How to access health informa tion online Indication:Joint pain Start:10-Jul-2019 Instruction Type:Patient Education How to access health informa tion online - Detail Indication:Joint pain Start:10-Jul-2019 Instruction Type:Patient Education Patient Instructions Indication:Joint pain Start:10-Jul-2019 Instruction Type:Provider Instructions for Treatment How to access health informa tion online Indication:Sore throat Start:10-Nov-2015 Instruction Type:Patient Education How to access health informa tion online - Detail Indication:Sore throat Start:10-Nov-2015 Instruction Type:Patient Education Patient Instructions Indication:Sore throat Start:10-Nov-2015 Instruction Type:Provider Instructions for Treatment How to access health informa tion online Indication:PRE-OPERATIVE EXAMINATION, UNSPECIFIED Start:07-Mar-2015 Instruction Type:Patient Education How to access health informa tion online - Detail Indication:PRE-OPERATIVE EXAMINATION, UNSPECIFIED Start:07-Mar-2015 Instruction Type:Patient Education Patient Instructions Indication:PRE-OPERATIVE EXAMINATION, UNSPECIFIED Start:07-Mar-2015 Instruction Type:Provider Instructions for Treatment Patient Instructions Indication:Hypertension Start:08-Jul-2014 Instruction Type:Provider Instructions for Treatment How to access health informa tion online Indication:Other and unspecified hyperlipidemia Start:19-Nov-2013 Instruction Type:Patient Education How to access health informa tion online - Detail Indication:Other and unspecified hyperlipidemia Start:19-Nov-2013 Instruction Type:Patient Education Patient Instructions Indication:GERD (gastroesophageal reflux disease) Start:19-Nov-2013 Instruction Type:Provider Instructions for Treatment Patient Instructions Indication:Impaired Fasting Glucose Start:25-Apr-2013 Instruction Type:Provider Instructions for Treatment Patient Instructions Indication:Hypertension Start:14-Aug-2012 Instruction Type:Provider Instructions for Treatment Patient Instructions Indication:Impaired Fasting Glucose Start:03-Apr-2012 Instruction Type:Provider Instructions for Treatment [facility] Work Phone: Instructions* Name Dates Details Patient Instructions Indication:Other and unspecified hyperlipidemia Start:28-Apr-2020 Instruction Type:Provider Instructions for Treatment How to Access Health Informa tion Online using Patient Portal and [employer] Indication:Other and unspecified hyperlipidemia Start:28-Apr-2020 Instruction Type:Patient Education How to access health informa tion online Indication:Neuropathy Start:18-Mar-2020 Instruction Type:Patient Education How to access health informa tion online Indication:Neuropathy Start:18-Mar-2020 Instruction Type:Patient Education Patient Instructions Indication:Neuropathy Start:18-Mar-2020 Instruction Type:Provider Instructions for Treatment How to access health informa tion online Indication:Skin tear of right upper extremity Start:02-Jan-2020 Instruction Type:Patient Education How to access health informa tion online - Detail Indication:Skin tear of right upper extremity Start:02-Jan-2020 Instruction Type:Patient Education Patient Instructions Indication:Skin tear of right upper extremity Start:02-Jan-2020 Instruction Type:Provider Instructions for Treatment How to access health informa tion online Indication:BMI 25.0-25.9,adult Start:24-Oct-2019 Instruction Type:Patient Education How to access health informa tion online - Detail Indication:BMI 25.0-25.9,adult Start:24-Oct-2019 Instruction Type:Patient Education Patient Instructions Indication:BMI 25.0-25.9,adult Start:24-Oct-2019 Instruction Type:Provider Instructions for Treatment How to access health informa tion online Indication:Nonsmoker Start:17-Jul-2019 Instruction Type:Patient Education How to access health informa tion online - Detail Indication:Nonsmoker Start:17-Jul-2019 Instruction Type:Patient Education Patient Instructions Indication:Nonsmoker Start:17-Jul-2019 Instruction Type:Provider Instructions for Treatment How to access health informa tion online Indication:Joint pain Start:10-Jul-2019 Instruction Type:Patient Education How to access health informa tion online - Detail Indication:Joint pain Start:10-Jul-2019 Instruction Type:Patient Education Patient Instructions Indication:Joint pain Start:10-Jul-2019 Instruction Type:Provider Instructions for Treatment How to access health informa tion online Indication:Sore throat Start:10-Nov-2015 Instruction Type:Patient Education How to access health informa tion online - Detail Indication:Sore throat Start:10-Nov-2015 Instruction Type:Patient Education Patient Instructions Indication:Sore throat Start:10-Nov-2015 Instruction Type:Provider Instructions for Treatment How to access health informa tion online Indication:PRE-OPERATIVE EXAMINATION, UNSPECIFIED Start:07-Mar-2015 Instruction Type:Patient Education How to access health informa tion online - Detail Indication:PRE-OPERATIVE EXAMINATION, UNSPECIFIED Start:07-Mar-2015 Instruction Type:Patient Education Patient Instructions Indication:PRE-OPERATIVE EXAMINATION, UNSPECIFIED Start:07-Mar-2015 Instruction Type:Provider Instructions for Treatment Patient Instructions Indication:Hypertension Start:08-Jul-2014 Instruction Type:Provider Instructions for Treatment How to access health informa tion online Indication:Other and unspecified hyperlipidemia Start:19-Nov-2013 Instruction Type:Patient Education How to access health informa tion online - Detail Indication:Other and unspecified hyperlipidemia Start:19-Nov-2013 Instruction Type:Patient Education Patient Instructions Indication:GERD (gastroesophageal reflux disease) Start:19-Nov-2013 Instruction Type:Provider Instructions for Treatment Patient Instructions Indication:Impaired Fasting Glucose Start:25-Apr-2013 Instruction Type:Provider Instructions for Treatment Patient Instructions Indication:Hypertension Start:14-Aug-2012 Instruction Type:Provider Instructions for Treatment Patient Instructions Indication:Impaired Fasting Glucose Start:03-Apr-2012 Instruction Type:Provider Instructions for Treatment [facility]; [facility] Work Phone: Instructions* Name Dates Details Patient Instructions Indication:Hypertension Start:06-Feb-2021 Instruction Type:Provider Instructions for Treatment How to Access Health Informa tion Online using Patient Portal and [employer]rd [employer] Apps Indication:Hypertension Start:06-Feb-2021 Instruction Type:Patient Education Patient Instructions Indication:Other and unspecified hyperlipidemia Start:28-Apr-2020 Instruction Type:Provider Instructions for Treatment How to Access Health Informa tion Online using Patient Portal and [employer] Apps Indication:Other and unspecified hyperlipidemia Start:28-Apr-2020 Instruction Type:Patient Education How to access health informa tion online Indication:Neuropathy Start:18-Mar-2020 Instruction Type:Patient Education How to access health informa tion online Indication:Neuropathy Start:18-Mar-2020 Instruction Type:Patient Education Patient Instructions Indication:Neuropathy Start:18-Mar-2020 Instruction Type:Provider Instructions for Treatment How to access health informa tion online Indication:Skin tear of right upper extremity Start:02-Jan-2020 Instruction Type:Patient Education How to access health informa tion online - Detail Indication:Skin tear of right upper extremity Start:02-Jan-2020 Instruction Type:Patient Education Patient Instructions Indication:Skin tear of right upper extremity Start:02-Jan-2020 Instruction Type:Provider Instructions for Treatment How to access health informa tion online Indication:BMI 25.0-25.9,adult Start:24-Oct-2019 Instruction Type:Patient Education How to access health informa tion online - Detail Indication:BMI 25.0-25.9,adult Start:24-Oct-2019 Instruction Type:Patient Education Patient Instructions Indication:BMI 25.0-25.9,adult Start:24-Oct-2019 Instruction Type:Provider Instructions for Treatment How to access health informa tion online Indication:Nonsmoker Start:17-Jul-2019 Instruction Type:Patient Education How to access health informa tion online - Detail Indication:Nonsmoker Start:17-Jul-2019 Instruction Type:Patient Education Patient Instructions Indication:Nonsmoker Start:17-Jul-2019 Instruction Type:Provider Instructions for Treatment How to access health informa tion online Indication:Joint pain Start:10-Jul-2019 Instruction Type:Patient Education How to access health informa tion online - Detail Indication:Joint pain Start:10-Jul-2019 Instruction Type:Patient Education Patient Instructions Indication:Joint pain Start:10-Jul-2019 Instruction Type:Provider Instructions for Treatment How to access health informa tion online Indication:Sore throat Start:10-Nov-2015 Instruction Type:Patient Education How to access health informa tion online - Detail Indication:Sore throat Start:10-Nov-2015 Instruction Type:Patient Education Patient Instructions Indication:Sore throat Start:10-Nov-2015 Instruction Type:Provider Instructions for Treatment How to access health informa tion online Indication:PRE-OPERATIVE EXAMINATION, UNSPECIFIED Start:07-Mar-2015 Instruction Type:Patient Education How to access health informa tion online - Detail Indication:PRE-OPERATIVE EXAMINATION, UNSPECIFIED Start:07-Mar-2015 Instruction Type:Patient Education Patient Instructions Indication:PRE-OPERATIVE EXAMINATION, UNSPECIFIED Start:07-Mar-2015 Instruction Type:Provider Instructions for Treatment Patient Instructions Indication:Hypertension Start:08-Jul-2014 Instruction Type:Provider Instructions for Treatment How to access health informa tion online Indication:Other and unspecified hyperlipidemia Start:19-Nov-2013 Instruction Type:Patient Education How to access health informa tion online - Detail Indication:Other and unspecified hyperlipidemia Start:19-Nov-2013 Instruction Type:Patient Education Patient Instructions Indication:GERD (gastroesophageal reflux disease) Start:19-Nov-2013 Instruction Type:Provider Instructions for Treatment Patient Instructions Indication:Impaired Fasting Glucose Start:25-Apr-2013 Instruction Type:Provider Instructions for Treatment Patient Instructions Indication:Hypertension Start:14-Aug-2012 Instruction Type:Provider Instructions for Treatment Patient Instructions Indication:Impaired Fasting Glucose Start:03-Apr-2012 Instruction Type:Provider Instructions for Treatment [facility]; [facility] Work Phone: Instructions* Name Dates Details Patient Instructions Indication:Hypertension Start:06-Feb-2021 Instruction Type:Provider Instructions for Treatment How to Access Health Informa tion Online using Patient Portal and [employer]rd [employer] Apps Indication:Hypertension Start:06-Feb-2021 Instruction Type:Patient Education Patient Instructions Indication:Other and unspecified hyperlipidemia Start:28-Apr-2020 Instruction Type:Provider Instructions for Treatment How to Access Health Informa tion Online using Patient Portal and [employer] Apps Indication:Other and unspecified hyperlipidemia Start:28-Apr-2020 Instruction Type:Patient Education How to access health informa tion online Indication:Neuropathy Start:18-Mar-2020 Instruction Type:Patient Education How to access health informa tion online Indication:Neuropathy Start:18-Mar-2020 Instruction Type:Patient Education Patient Instructions Indication:Neuropathy Start:18-Mar-2020 Instruction Type:Provider Instructions for Treatment How to access health informa tion online Indication:Skin tear of right upper extremity Start:02-Jan-2020 Instruction Type:Patient Education How to access health informa tion online - Detail Indication:Skin tear of right upper extremity Start:02-Jan-2020 Instruction Type:Patient Education Patient Instructions Indication:Skin tear of right upper extremity Start:02-Jan-2020 Instruction Type:Provider Instructions for Treatment How to access health informa tion online Indication:BMI 25.0-25.9,adult Start:24-Oct-2019 Instruction Type:Patient Education How to access health informa tion online - Detail Indication:BMI 25.0-25.9,adult Start:24-Oct-2019 Instruction Type:Patient Education Patient Instructions Indication:BMI 25.0-25.9,adult Start:24-Oct-2019 Instruction Type:Provider Instructions for Treatment How to access health informa tion online Indication:Nonsmoker Start:17-Jul-2019 Instruction Type:Patient Education How to access health informa tion online - Detail Indication:Nonsmoker Start:17-Jul-2019 Instruction Type:Patient Education Patient Instructions Indication:Nonsmoker Start:17-Jul-2019 Instruction Type:Provider Instructions for Treatment How to access health informa tion online Indication:Joint pain Start:10-Jul-2019 Instruction Type:Patient Education How to access health informa tion online - Detail Indication:Joint pain Start:10-Jul-2019 Instruction Type:Patient Education Patient Instructions Indication:Joint pain Start:10-Jul-2019 Instruction Type:Provider Instructions for Treatment How to access health informa tion online Indication:Sore throat Start:10-Nov-2015 Instruction Type:Patient Education How to access health informa tion online - Detail Indication:Sore throat Start:10-Nov-2015 Instruction Type:Patient Education Patient Instructions Indication:Sore throat Start:10-Nov-2015 Instruction Type:Provider Instructions for Treatment How to access health informa tion online Indication:PRE-OPERATIVE EXAMINATION, UNSPECIFIED Start:07-Mar-2015 Instruction Type:Patient Education How to access health informa tion online - Detail Indication:PRE-OPERATIVE EXAMINATION, UNSPECIFIED Start:07-Mar-2015 Instruction Type:Patient Education Patient Instructions Indication:PRE-OPERATIVE EXAMINATION, UNSPECIFIED Start:07-Mar-2015 Instruction Type:Provider Instructions for Treatment Patient Instructions Indication:Hypertension Start:08-Jul-2014 Instruction Type:Provider Instructions for Treatment How to access health informa tion online Indication:Other and unspecified hyperlipidemia Start:19-Nov-2013 Instruction Type:Patient Education How to access health informa tion online - Detail Indication:Other and unspecified hyperlipidemia Start:19-Nov-2013 Instruction Type:Patient Education Patient Instructions Indication:GERD (gastroesophageal reflux disease) Start:19-Nov-2013 Instruction Type:Provider Instructions for Treatment Patient Instructions Indication:Impaired Fasting Glucose Start:25-Apr-2013 Instruction Type:Provider Instructions for Treatment Patient Instructions Indication:Hypertension Start:14-Aug-2012 Instruction Type:Provider Instructions for Treatment Patient Instructions Indication:Impaired Fasting Glucose Start:03-Apr-2012 Instruction Type:Provider Instructions for Treatment [facility]; [facility] Work Phone: Instructions* Name Dates Details Patient Instructions Indication:Nonsmoker Start:01-Jun-2021 Instruction Type:Provider Instructions for Treatment How to Access Health Informa tion Online using Patient Portal and [employer]rd [employer] Apps Indication:Nonsmoker Start:01-Jun-2021 Instruction Type:Patient Education Patient Instructions Indication:Hypertension Start:06-Feb-2021 Instruction Type:Provider Instructions for Treatment How to Access Health Informa tion Online using Patient Portal and [employer] Apps Indication:Hypertension Start:06-Feb-2021 Instruction Type:Patient Education Patient Instructions Indication:Other and unspecified hyperlipidemia Start:28-Apr-2020 Instruction Type:Provider Instructions for Treatment How to Access Health Informa tion Online using Patient Portal and [employer] Apps Indication:Other and unspecified hyperlipidemia Start:28-Apr-2020 Instruction Type:Patient Education How to access health informa tion online Indication:Neuropathy Start:18-Mar-2020 Instruction Type:Patient Education How to access health informa tion online Indication:Neuropathy Start:18-Mar-2020 Instruction Type:Patient Education Patient Instructions Indication:Neuropathy Start:18-Mar-2020 Instruction Type:Provider Instructions for Treatment How to access health informa tion online Indication:Skin tear of right upper extremity Start:02-Jan-2020 Instruction Type:Patient Education How to access health informa tion online - Detail Indication:Skin tear of right upper extremity Start:02-Jan-2020 Instruction Type:Patient Education Patient Instructions Indication:Skin tear of right upper extremity Start:02-Jan-2020 Instruction Type:Provider Instructions for Treatment How to access health informa tion online Indication:BMI 25.0-25.9,adult Start:24-Oct-2019 Instruction Type:Patient Education How to access health informa tion online - Detail Indication:BMI 25.0-25.9,adult Start:24-Oct-2019 Instruction Type:Patient Education Patient Instructions Indication:BMI 25.0-25.9,adult Start:24-Oct-2019 Instruction Type:Provider Instructions for Treatment How to access health informa tion online Indication:Nonsmoker Start:17-Jul-2019 Instruction Type:Patient Education How to access health informa tion online - Detail Indication:Nonsmoker Start:17-Jul-2019 Instruction Type:Patient Education Patient Instructions Indication:Nonsmoker Start:17-Jul-2019 Instruction Type:Provider Instructions for Treatment How to access health informa tion online Indication:Joint pain Start:10-Jul-2019 Instruction Type:Patient Education How to access health informa tion online - Detail Indication:Joint pain Start:10-Jul-2019 Instruction Type:Patient Education Patient Instructions Indication:Joint pain Start:10-Jul-2019 Instruction Type:Provider Instructions for Treatment How to access health informa tion online Indication:Sore throat Start:10-Nov-2015 Instruction Type:Patient Education How to access health informa tion online - Detail Indication:Sore throat Start:10-Nov-2015 Instruction Type:Patient Education Patient Instructions Indication:Sore throat Start:10-Nov-2015 Instruction Type:Provider Instructions for Treatment How to access health informa tion online Indication:PRE-OPERATIVE EXAMINATION, UNSPECIFIED Start:07-Mar-2015 Instruction Type:Patient Education How to access health informa tion online - Detail Indication:PRE-OPERATIVE EXAMINATION, UNSPECIFIED Start:07-Mar-2015 Instruction Type:Patient Education Patient Instructions Indication:PRE-OPERATIVE EXAMINATION, UNSPECIFIED Start:07-Mar-2015 Instruction Type:Provider Instructions for Treatment Patient Instructions Indication:Hypertension Start:08-Jul-2014 Instruction Type:Provider Instructions for Treatment How to access health informa tion online Indication:Other and unspecified hyperlipidemia Start:19-Nov-2013 Instruction Type:Patient Education How to access health informa tion online - Detail Indication:Other and unspecified hyperlipidemia Start:19-Nov-2013 Instruction Type:Patient Education Patient Instructions Indication:GERD (gastroesophageal reflux disease) Start:19-Nov-2013 Instruction Type:Provider Instructions for Treatment Patient Instructions Indication:Impaired Fasting Glucose Start:25-Apr-2013 Instruction Type:Provider Instructions for Treatment Patient Instructions Indication:Hypertension Start:14-Aug-2012 Instruction Type:Provider Instructions for Treatment Patient Instructions Indication:Impaired Fasting Glucose Start:03-Apr-2012 Instruction Type:Provider Instructions for Treatment [facility]; [facility] Work Phone: Instructions* Name Dates Details Patient Instructions Indication:[facility] EXAM Start:10-Jun-2021 Instruction Type:Provider Instructions for Treatment How to Access Health Informa tion Online using Patient Portal and [employer] Apps Indication:[facility] EXAM Start:10-Jun-2021 Instruction Type:Patient Education Patient Instructions Indication:Nonsmoker Start:01-Jun-2021 Instruction Type:Provider Instructions for Treatment How to Access Health Informa tion Online using Patient Portal and [employer] Apps Indication:Nonsmoker Start:01-Jun-2021 Instruction Type:Patient Education Patient Instructions Indication:Hypertension Start:06-Feb-2021 Instruction Type:Provider Instructions for Treatment How to Access Health Informa tion Online using Patient Portal and [employer] Apps Indication:Hypertension Start:06-Feb-2021 Instruction Type:Patient Education Patient Instructions Indication:Other and unspecified hyperlipidemia Start:28-Apr-2020 Instruction Type:Provider Instructions for Treatment How to Access Health Informa tion Online using Patient Portal and [employer] Apps Indication:Other and unspecified hyperlipidemia Start:28-Apr-2020 Instruction Type:Patient Education How to access health informa tion online Indication:Neuropathy Start:18-Mar-2020 Instruction Type:Patient Education How to access health informa tion online Indication:Neuropathy Start:18-Mar-2020 Instruction Type:Patient Education Patient Instructions Indication:Neuropathy Start:18-Mar-2020 Instruction Type:Provider Instructions for Treatment How to access health informa tion online Indication:Skin tear of right upper extremity Start:02-Jan-2020 Instruction Type:Patient Education How to access health informa tion online - Detail Indication:Skin tear of right upper extremity Start:02-Jan-2020 Instruction Type:Patient Education Patient Instructions Indication:Skin tear of right upper extremity Start:02-Jan-2020 Instruction Type:Provider Instructions for Treatment How to access health informa tion online Indication:BMI 25.0-25.9,adult Start:24-Oct-2019 Instruction Type:Patient Education How to access health informa tion online - Detail Indication:BMI 25.0-25.9,adult Start:24-Oct-2019 Instruction Type:Patient Education Patient Instructions Indication:BMI 25.0-25.9,adult Start:24-Oct-2019 Instruction Type:Provider Instructions for Treatment How to access health informa tion online Indication:Nonsmoker Start:17-Jul-2019 Instruction Type:Patient Education How to access health informa tion online - Detail Indication:Nonsmoker Start:17-Jul-2019 Instruction Type:Patient Education Patient Instructions Indication:Nonsmoker Start:17-Jul-2019 Instruction Type:Provider Instructions for Treatment How to access health informa tion online Indication:Joint pain Start:10-Jul-2019 Instruction Type:Patient Education How to access health informa tion online - Detail Indication:Joint pain Start:10-Jul-2019 Instruction Type:Patient Education Patient Instructions Indication:Joint pain Start:10-Jul-2019 Instruction Type:Provider Instructions for Treatment How to access health informa tion online Indication:Sore throat Start:10-Nov-2015 Instruction Type:Patient Education How to access health informa tion online - Detail Indication:Sore throat Start:10-Nov-2015 Instruction Type:Patient Education Patient Instructions Indication:Sore throat Start:10-Nov-2015 Instruction Type:Provider Instructions for Treatment How to access health informa tion online Indication:PRE-OPERATIVE EXAMINATION, UNSPECIFIED Start:07-Mar-2015 Instruction Type:Patient Education How to access health informa tion online - Detail Indication:PRE-OPERATIVE EXAMINATION, UNSPECIFIED Start:07-Mar-2015 Instruction Type:Patient Education Patient Instructions Indication:PRE-OPERATIVE EXAMINATION, UNSPECIFIED Start:07-Mar-2015 Instruction Type:Provider Instructions for Treatment Patient Instructions Indication:Hypertension Start:08-Jul-2014 Instruction Type:Provider Instructions for Treatment How to access health informa tion online Indication:Other and unspecified hyperlipidemia Start:19-Nov-2013 Instruction Type:Patient Education How to access health informa tion online - Detail Indication:Other and unspecified hyperlipidemia Start:19-Nov-2013 Instruction Type:Patient Education Patient Instructions Indication:GERD (gastroesophageal reflux disease) Start:19-Nov-2013 Instruction Type:Provider Instructions for Treatment Patient Instructions Indication:Impaired Fasting Glucose Start:25-Apr-2013 Instruction Type:Provider Instructions for Treatment Patient Instructions Indication:Hypertension Start:14-Aug-2012 Instruction Type:Provider Instructions for Treatment Patient Instructions Indication:Impaired Fasting Glucose Start:03-Apr-2012 Instruction Type:Provider Instructions for Treatment [facility]; [facility] Work Phone: Instructions* Name Dates Details Patient Instructions Indication:[facility] EX[facility] Start:10-Jun-2021 Instruction Type:Provider Instructions for Treatment How to Access Health Informa tion Online using Patient Portal and [employer] Apps Indication:[facility] EXAM Start:10-Jun-2021 Instruction Type:Patient Education Patient Instructions Indication:Nonsmoker Start:01-Jun-2021 Instruction Type:Provider Instructions for Treatment How to Access Health Informa tion Online using Patient Portal and [employer] Apps Indication:Nonsmoker Start:01-Jun-2021 Instruction Type:Patient Education Patient Instructions Indication:Hypertension Start:06-Feb-2021 Instruction Type:Provider Instructions for Treatment How to Access Health Informa tion Online using Patient Portal and [employer] Apps Indication:Hypertension Start:06-Feb-2021 Instruction Type:Patient Education Patient Instructions Indication:Other and unspecified hyperlipidemia Start:28-Apr-2020 Instruction Type:Provider Instructions for Treatment How to Access Health Informa tion Online using Patient Portal and [employer] Apps Indication:Other and unspecified hyperlipidemia Start:28-Apr-2020 Instruction Type:Patient Education How to access health informa tion online Indication:Neuropathy Start:18-Mar-2020 Instruction Type:Patient Education How to access health informa tion online Indication:Neuropathy Start:18-Mar-2020 Instruction Type:Patient Education Patient Instructions Indication:Neuropathy Start:18-Mar-2020 Instruction Type:Provider Instructions for Treatment How to access health informa tion online Indication:Skin tear of right upper extremity Start:02-Jan-2020 Instruction Type:Patient Education How to access health informa tion online - Detail Indication:Skin tear of right upper extremity Start:02-Jan-2020 Instruction Type:Patient Education Patient Instructions Indication:Skin tear of right upper extremity Start:02-Jan-2020 Instruction Type:Provider Instructions for Treatment How to access health informa tion online Indication:BMI 25.0-25.9,adult Start:24-Oct-2019 Instruction Type:Patient Education How to access health informa tion online - Detail Indication:BMI 25.0-25.9,adult Start:24-Oct-2019 Instruction Type:Patient Education Patient Instructions Indication:BMI 25.0-25.9,adult Start:24-Oct-2019 Instruction Type:Provider Instructions for Treatment How to access health informa tion online Indication:Nonsmoker Start:17-Jul-2019 Instruction Type:Patient Education How to access health informa tion online - Detail Indication:Nonsmoker Start:17-Jul-2019 Instruction Type:Patient Education Patient Instructions Indication:Nonsmoker Start:17-Jul-2019 Instruction Type:Provider Instructions for Treatment How to access health informa tion online Indication:Joint pain Start:10-Jul-2019 Instruction Type:Patient Education How to access health informa tion online - Detail Indication:Joint pain Start:10-Jul-2019 Instruction Type:Patient Education Patient Instructions Indication:Joint pain Start:10-Jul-2019 Instruction Type:Provider Instructions for Treatment How to access health informa tion online Indication:Sore throat Start:10-Nov-2015 Instruction Type:Patient Education How to access health informa tion online - Detail Indication:Sore throat Start:10-Nov-2015 Instruction Type:Patient Education Patient Instructions Indication:Sore throat Start:10-Nov-2015 Instruction Type:Provider Instructions for Treatment How to access health informa tion online Indication:PRE-OPERATIVE EXAMINATION, UNSPECIFIED Start:07-Mar-2015 Instruction Type:Patient Education How to access health informa tion online - Detail Indication:PRE-OPERATIVE EXAMINATION, UNSPECIFIED Start:07-Mar-2015 Instruction Type:Patient Education Patient Instructions Indication:PRE-OPERATIVE EXAMINATION, UNSPECIFIED Start:07-Mar-2015 Instruction Type:Provider Instructions for Treatment Patient Instructions Indication:Hypertension Start:08-Jul-2014 Instruction Type:Provider Instructions for Treatment How to access health informa tion online Indication:Other and unspecified hyperlipidemia Start:19-Nov-2013 Instruction Type:Patient Education How to access health informa tion online - Detail Indication:Other and unspecified hyperlipidemia Start:19-Nov-2013 Instruction Type:Patient Education Patient Instructions Indication:GERD (gastroesophageal reflux disease) Start:19-Nov-2013 Instruction Type:Provider Instructions for Treatment Patient Instructions Indication:Impaired Fasting Glucose Start:25-Apr-2013 Instruction Type:Provider Instructions for Treatment Patient Instructions Indication:Hypertension Start:14-Aug-2012 Instruction Type:Provider Instructions for Treatment Patient Instructions Indication:Impaired Fasting Glucose Start:03-Apr-2012 Instruction Type:Provider Instructions for Treatment [facility]; [facility] Work Phone: Instructions* Name Dates Details Patient Instructions Indication:[facility] EX[facility] Start:10-Jun-2021 Instruction Type:Provider Instructions for Treatment How to Access Health Informa tion Online using Patient Portal and [employer]rd [employer] Apps Indication:[facility] EX[facility] Start:10-Jun-2021 Instruction Type:Patient Education Patient Instructions Indication:Nonsmoker Start:01-Jun-2021 Instruction Type:Provider Instructions for Treatment How to Access Health Informa tion Online using Patient Portal and [employer]rd [employer] Apps Indication:Nonsmoker Start:01-Jun-2021 Instruction Type:Patient Education Patient Instructions Indication:Hypertension Start:06-Feb-2021 Instruction Type:Provider Instructions for Treatment How to Access Health Informa tion Online using Patient Portal and [employer]rd [employer] Apps Indication:Hypertension Start:06-Feb-2021 Instruction Type:Patient Education Patient Instructions Indication:Other and unspecified hyperlipidemia Start:28-Apr-2020 Instruction Type:Provider Instructions for Treatment How to Access Health Informa tion Online using Patient Portal and [employer]rd [employer] Apps Indication:Other and unspecified hyperlipidemia Start:28-Apr-2020 Instruction Type:Patient Education How to access health informa tion online Indication:Neuropathy Start:18-Mar-2020 Instruction Type:Patient Education How to access health informa tion online Indication:Neuropathy Start:18-Mar-2020 Instruction Type:Patient Education Patient Instructions Indication:Neuropathy Start:18-Mar-2020 Instruction Type:Provider Instructions for Treatment How to access health informa tion online Indication:Skin tear of right upper extremity Start:02-Jan-2020 Instruction Type:Patient Education How to access health informa tion online - Detail Indication:Skin tear of right upper extremity Start:02-Jan-2020 Instruction Type:Patient Education Patient Instructions Indication:Skin tear of right upper extremity Start:02-Jan-2020 Instruction Type:Provider Instructions for Treatment How to access health informa tion online Indication:BMI 25.0-25.9,adult Start:24-Oct-2019 Instruction Type:Patient Education How to access health informa tion online - Detail Indication:BMI 25.0-25.9,adult Start:24-Oct-2019 Instruction Type:Patient Education Patient Instructions Indication:BMI 25.0-25.9,adult Start:24-Oct-2019 Instruction Type:Provider Instructions for Treatment How to access health informa tion online Indication:Nonsmoker Start:17-Jul-2019 Instruction Type:Patient Education How to access health informa tion online - Detail Indication:Nonsmoker Start:17-Jul-2019 Instruction Type:Patient Education Patient Instructions Indication:Nonsmoker Start:17-Jul-2019 Instruction Type:Provider Instructions for Treatment How to access health informa tion online Indication:Joint pain Start:10-Jul-2019 Instruction Type:Patient Education How to access health informa tion online - Detail Indication:Joint pain Start:10-Jul-2019 Instruction Type:Patient Education Patient Instructions Indication:Joint pain Start:10-Jul-2019 Instruction Type:Provider Instructions for Treatment How to access health informa tion online Indication:Sore throat Start:10-Nov-2015 Instruction Type:Patient Education How to access health informa tion online - Detail Indication:Sore throat Start:10-Nov-2015 Instruction Type:Patient Education Patient Instructions Indication:Sore throat Start:10-Nov-2015 Instruction Type:Provider Instructions for Treatment How to access health informa tion online Indication:PRE-OPERATIVE EXAMINATION, UNSPECIFIED Start:07-Mar-2015 Instruction Type:Patient Education How to access health informa tion online - Detail Indication:PRE-OPERATIVE EXAMINATION, UNSPECIFIED Start:07-Mar-2015 Instruction Type:Patient Education Patient Instructions Indication:PRE-OPERATIVE EXAMINATION, UNSPECIFIED Start:07-Mar-2015 Instruction Type:Provider Instructions for Treatment Patient Instructions Indication:Hypertension Start:08-Jul-2014 Instruction Type:Provider Instructions for Treatment How to access health informa tion online Indication:Other and unspecified hyperlipidemia Start:19-Nov-2013 Instruction Type:Patient Education How to access health informa tion online - Detail Indication:Other and unspecified hyperlipidemia Start:19-Nov-2013 Instruction Type:Patient Education Patient Instructions Indication:GERD (gastroesophageal reflux disease) Start:19-Nov-2013 Instruction Type:Provider Instructions for Treatment Patient Instructions Indication:Impaired Fasting Glucose Start:25-Apr-2013 Instruction Type:Provider Instructions for Treatment Patient Instructions Indication:Hypertension Start:14-Aug-2012 Instruction Type:Provider Instructions for Treatment Patient Instructions Indication:Impaired Fasting Glucose Start:03-Apr-2012 Instruction Type:Provider Instructions for Treatment [facility]; [facility] Work Phone: Instructions* Name Dates Details Patient Instructions Indication:Night sweats Start:06-Jul-2021 Instruction Type:Provider Instructions for Treatment How to Access Health Informa tion Online using Patient Portal and [employer]rd [employer] Apps Indication:Night sweats Start:06-Jul-2021 Instruction Type:Patient Education Patient Instructions Indication:[facility] Start:10-Jun-2021 Instruction Type:Provider Instructions for Treatment How to Access Health Informa tion Online using Patient Portal and [employer]rd [employer] Apps Indication:[facility] Start:10-Jun-2021 Instruction Type:Patient Education Patient Instructions Indication:Nonsmoker Start:01-Jun-2021 Instruction Type:Provider Instructions for Treatment How to Access Health Informa tion Online using Patient Portal and [employer]rd [employer] Apps Indication:Nonsmoker Start:01-Jun-2021 Instruction Type:Patient Education Patient Instructions Indication:Hypertension Start:06-Feb-2021 Instruction Type:Provider Instructions for Treatment How to Access Health Informa tion Online using Patient Portal and [employer] Apps Indication:Hypertension Start:06-Feb-2021 Instruction Type:Patient Education Patient Instructions Indication:Other and unspecified hyperlipidemia Start:28-Apr-2020 Instruction Type:Provider Instructions for Treatment How to Access Health Informa tion Online using Patient Portal and [employer] Apps Indication:Other and unspecified hyperlipidemia Start:28-Apr-2020 Instruction Type:Patient Education How to access health informa tion online Indication:Neuropathy Start:18-Mar-2020 Instruction Type:Patient Education How to access health informa tion online Indication:Neuropathy Start:18-Mar-2020 Instruction Type:Patient Education Patient Instructions Indication:Neuropathy Start:18-Mar-2020 Instruction Type:Provider Instructions for Treatment How to access health informa tion online Indication:Skin tear of right upper extremity Start:02-Jan-2020 Instruction Type:Patient Education How to access health informa tion online - Detail Indication:Skin tear of right upper extremity Start:02-Jan-2020 Instruction Type:Patient Education Patient Instructions Indication:Skin tear of right upper extremity Start:02-Jan-2020 Instruction Type:Provider Instructions for Treatment How to access health informa tion online Indication:BMI 25.0-25.9,adult Start:24-Oct-2019 Instruction Type:Patient Education How to access health informa tion online - Detail Indication:BMI 25.0-25.9,adult Start:24-Oct-2019 Instruction Type:Patient Education Patient Instructions Indication:BMI 25.0-25.9,adult Start:24-Oct-2019 Instruction Type:Provider Instructions for Treatment How to access health informa tion online Indication:Nonsmoker Start:17-Jul-2019 Instruction Type:Patient Education How to access health informa tion online - Detail Indication:Nonsmoker Start:17-Jul-2019 Instruction Type:Patient Education Patient Instructions Indication:Nonsmoker Start:17-Jul-2019 Instruction Type:Provider Instructions for Treatment How to access health informa tion online Indication:Joint pain Start:10-Jul-2019 Instruction Type:Patient Education How to access health informa tion online - Detail Indication:Joint pain Start:10-Jul-2019 Instruction Type:Patient Education Patient Instructions Indication:Joint pain Start:10-Jul-2019 Instruction Type:Provider Instructions for Treatment How to access health informa tion online Indication:Sore throat Start:10-Nov-2015 Instruction Type:Patient Education How to access health informa tion online - Detail Indication:Sore throat Start:10-Nov-2015 Instruction Type:Patient Education Patient Instructions Indication:Sore throat Start:10-Nov-2015 Instruction Type:Provider Instructions for Treatment How to access health informa tion online Indication:PRE-OPERATIVE EXAMINATION, UNSPECIFIED Start:07-Mar-2015 Instruction Type:Patient Education How to access health informa tion online - Detail Indication:PRE-OPERATIVE EXAMINATION, UNSPECIFIED Start:07-Mar-2015 Instruction Type:Patient Education Patient Instructions Indication:PRE-OPERATIVE EXAMINATION, UNSPECIFIED Start:07-Mar-2015 Instruction Type:Provider Instructions for Treatment Patient Instructions Indication:Hypertension Start:08-Jul-2014 Instruction Type:Provider Instructions for Treatment How to access health informa tion online Indication:Other and unspecified hyperlipidemia Start:19-Nov-2013 Instruction Type:Patient Education How to access health informa tion online - Detail Indication:Other and unspecified hyperlipidemia Start:19-Nov-2013 Instruction Type:Patient Education Patient Instructions Indication:GERD (gastroesophageal reflux disease) Start:19-Nov-2013 Instruction Type:Provider Instructions for Treatment Patient Instructions Indication:Impaired Fasting Glucose Start:25-Apr-2013 Instruction Type:Provider Instructions for Treatment Patient Instructions Indication:Hypertension Start:14-Aug-2012 Instruction Type:Provider Instructions for Treatment Patient Instructions Indication:Impaired Fasting Glucose Start:03-Apr-2012 Instruction Type:Provider Instructions for Treatment [facility]; [facility] Work Phone: Instructions* Name Dates Details Patient Instructions Indication:Night sweats Start:06-Jul-2021 Instruction Type:Provider Instructions for Treatment How to Access Health Informa tion Online using Patient Portal and [employer]rd [employer] Apps Indication:Night sweats Start:06-Jul-2021 Instruction Type:Patient Education Patient Instructions Indication:[facility] Start:10-Jun-2021 Instruction Type:Provider Instructions for Treatment How to Access Health Informa tion Online using Patient Portal and [employer]rd [employer] Apps Indication:[facility] EX[facility] Start:10-Jun-2021 Instruction Type:Patient Education Patient Instructions Indication:Nonsmoker Start:01-Jun-2021 Instruction Type:Provider Instructions for Treatment How to Access Health Informa tion Online using Patient Portal and [employer]rd [employer] Apps Indication:Nonsmoker Start:01-Jun-2021 Instruction Type:Patient Education Patient Instructions Indication:Hypertension Start:06-Feb-2021 Instruction Type:Provider Instructions for Treatment How to Access Health Informa tion Online using Patient Portal and [employer]rd [employer] Apps Indication:Hypertension Start:06-Feb-2021 Instruction Type:Patient Education Patient Instructions Indication:Other and unspecified hyperlipidemia Start:28-Apr-2020 Instruction Type:Provider Instructions for Treatment How to Access Health Informa tion Online using Patient Portal and [employer] Apps Indication:Other and unspecified hyperlipidemia Start:28-Apr-2020 Instruction Type:Patient Education How to access health informa tion online Indication:Neuropathy Start:18-Mar-2020 Instruction Type:Patient Education How to access health informa tion online Indication:Neuropathy Start:18-Mar-2020 Instruction Type:Patient Education Patient Instructions Indication:Neuropathy Start:18-Mar-2020 Instruction Type:Provider Instructions for Treatment How to access health informa tion online Indication:Skin tear of right upper extremity Start:02-Jan-2020 Instruction Type:Patient Education How to access health informa tion online - Detail Indication:Skin tear of right upper extremity Start:02-Jan-2020 Instruction Type:Patient Education Patient Instructions Indication:Skin tear of right upper extremity Start:02-Jan-2020 Instruction Type:Provider Instructions for Treatment How to access health informa tion online Indication:BMI 25.0-25.9,adult Start:24-Oct-2019 Instruction Type:Patient Education How to access health informa tion online - Detail Indication:BMI 25.0-25.9,adult Start:24-Oct-2019 Instruction Type:Patient Education Patient Instructions Indication:BMI 25.0-25.9,adult Start:24-Oct-2019 Instruction Type:Provider Instructions for Treatment How to access health informa tion online Indication:Nonsmoker Start:17-Jul-2019 Instruction Type:Patient Education How to access health informa tion online - Detail Indication:Nonsmoker Start:17-Jul-2019 Instruction Type:Patient Education Patient Instructions Indication:Nonsmoker Start:17-Jul-2019 Instruction Type:Provider Instructions for Treatment How to access health informa tion online Indication:Joint pain Start:10-Jul-2019 Instruction Type:Patient Education How to access health informa tion online - Detail Indication:Joint pain Start:10-Jul-2019 Instruction Type:Patient Education Patient Instructions Indication:Joint pain Start:10-Jul-2019 Instruction Type:Provider Instructions for Treatment How to access health informa tion online Indication:Sore throat Start:10-Nov-2015 Instruction Type:Patient Education How to access health informa tion online - Detail Indication:Sore throat Start:10-Nov-2015 Instruction Type:Patient Education Patient Instructions Indication:Sore throat Start:10-Nov-2015 Instruction Type:Provider Instructions for Treatment How to access health informa tion online Indication:PRE-OPERATIVE EXAMINATION, UNSPECIFIED Start:07-Mar-2015 Instruction Type:Patient Education How to access health informa tion online - Detail Indication:PRE-OPERATIVE EXAMINATION, UNSPECIFIED Start:07-Mar-2015 Instruction Type:Patient Education Patient Instructions Indication:PRE-OPERATIVE EXAMINATION, UNSPECIFIED Start:07-Mar-2015 Instruction Type:Provider Instructions for Treatment Patient Instructions Indication:Hypertension Start:08-Jul-2014 Instruction Type:Provider Instructions for Treatment How to access health informa tion online Indication:Other and unspecified hyperlipidemia Start:19-Nov-2013 Instruction Type:Patient Education How to access health informa tion online - Detail Indication:Other and unspecified hyperlipidemia Start:19-Nov-2013 Instruction Type:Patient Education Patient Instructions Indication:GERD (gastroesophageal reflux disease) Start:19-Nov-2013 Instruction Type:Provider Instructions for Treatment Patient Instructions Indication:Impaired Fasting Glucose Start:25-Apr-2013 Instruction Type:Provider Instructions for Treatment Patient Instructions Indication:Hypertension Start:14-Aug-2012 Instruction Type:Provider Instructions for Treatment Patient Instructions Indication:Impaired Fasting Glucose Start:03-Apr-2012 Instruction Type:Provider Instructions for Treatment [facility]; [facility] Work Phone: Instructions* Name Dates Details Patient Instructions Indication:BMI 24.0-24.9, adult Start:04-Nov-2021 Instruction Type:Provider Instructions for Treatment How to Access Health Informa tion Online using Patient Portal and [employer]rd [employer] Apps Indication:BMI 24.0-24.9, adult Start:04-Nov-2021 Instruction Type:Patient Education Patient Instructions Indication:Night sweats Start:06-Jul-2021 Instruction Type:Provider Instructions for Treatment How to Access Health Informa tion Online using Patient Portal and [employer]rd [employer] Apps Indication:Night sweats Start:06-Jul-2021 Instruction Type:Patient Education Patient Instructions Indication:[facility] Start:10-Jun-2021 Instruction Type:Provider Instructions for Treatment How to Access Health Informa tion Online using Patient Portal and [employer]rd [employer] Apps Indication:[facility] EX[facility] Start:10-Jun-2021 Instruction Type:Patient Education Patient Instructions Indication:Nonsmoker Start:01-Jun-2021 Instruction Type:Provider Instructions for Treatment How to Access Health Informa tion Online using Patient Portal and [employer]rd [employer] Apps Indication:Nonsmoker Start:01-Jun-2021 Instruction Type:Patient Education Patient Instructions Indication:Hypertension Start:06-Feb-2021 Instruction Type:Provider Instructions for Treatment How to Access Health Informa tion Online using Patient Portal and [employer] Apps Indication:Hypertension Start:06-Feb-2021 Instruction Type:Patient Education Patient Instructions Indication:Other and unspecified hyperlipidemia Start:28-Apr-2020 Instruction Type:Provider Instructions for Treatment How to Access Health Informa tion Online using Patient Portal and [employer]rd [employer] Apps Indication:Other and unspecified hyperlipidemia Start:28-Apr-2020 Instruction Type:Patient Education How to access health informa tion online Indication:Neuropathy Start:18-Mar-2020 Instruction Type:Patient Education How to access health informa tion online Indication:Neuropathy Start:18-Mar-2020 Instruction Type:Patient Education Patient Instructions Indication:Neuropathy Start:18-Mar-2020 Instruction Type:Provider Instructions for Treatment How to access health informa tion online Indication:Skin tear of right upper extremity Start:02-Jan-2020 Instruction Type:Patient Education How to access health informa tion online - Detail Indication:Skin tear of right upper extremity Start:02-Jan-2020 Instruction Type:Patient Education Patient Instructions Indication:Skin tear of right upper extremity Start:02-Jan-2020 Instruction Type:Provider Instructions for Treatment How to access health informa tion online Indication:BMI 25.0-25.9,adult Start:24-Oct-2019 Instruction Type:Patient Education How to access health informa tion online - Detail Indication:BMI 25.0-25.9,adult Start:24-Oct-2019 Instruction Type:Patient Education Patient Instructions Indication:BMI 25.0-25.9,adult Start:24-Oct-2019 Instruction Type:Provider Instructions for Treatment How to access health informa tion online Indication:Nonsmoker Start:17-Jul-2019 Instruction Type:Patient Education How to access health informa tion online - Detail Indication:Nonsmoker Start:17-Jul-2019 Instruction Type:Patient Education Patient Instructions Indication:Nonsmoker Start:17-Jul-2019 Instruction Type:Provider Instructions for Treatment How to access health informa tion online Indication:Joint pain Start:10-Jul-2019 Instruction Type:Patient Education How to access health informa tion online - Detail Indication:Joint pain Start:10-Jul-2019 Instruction Type:Patient Education Patient Instructions Indication:Joint pain Start:10-Jul-2019 Instruction Type:Provider Instructions for Treatment How to access health informa tion online Indication:Sore throat Start:10-Nov-2015 Instruction Type:Patient Education How to access health informa tion online - Detail Indication:Sore throat Start:10-Nov-2015 Instruction Type:Patient Education Patient Instructions Indication:Sore throat Start:10-Nov-2015 Instruction Type:Provider Instructions for Treatment How to access health informa tion online Indication:PRE-OPERATIVE EXAMINATION, UNSPECIFIED Start:07-Mar-2015 Instruction Type:Patient Education How to access health informa tion online - Detail Indication:PRE-OPERATIVE EXAMINATION, UNSPECIFIED Start:07-Mar-2015 Instruction Type:Patient Education Patient Instructions Indication:PRE-OPERATIVE EXAMINATION, UNSPECIFIED Start:07-Mar-2015 Instruction Type:Provider Instructions for Treatment Patient Instructions Indication:Hypertension Start:08-Jul-2014 Instruction Type:Provider Instructions for Treatment How to access health informa tion online Indication:Other and unspecified hyperlipidemia Start:19-Nov-2013 Instruction Type:Patient Education How to access health informa tion online - Detail Indication:Other and unspecified hyperlipidemia Start:19-Nov-2013 Instruction Type:Patient Education Patient Instructions Indication:GERD (gastroesophageal reflux disease) Start:19-Nov-2013 Instruction Type:Provider Instructions for Treatment Patient Instructions Indication:Impaired Fasting Glucose Start:25-Apr-2013 Instruction Type:Provider Instructions for Treatment Patient Instructions Indication:Hypertension Start:14-Aug-2012 Instruction Type:Provider Instructions for Treatment Patient Instructions Indication:Impaired Fasting Glucose Start:03-Apr-2012 Instruction Type:Provider Instructions for Treatment [facility]; [facility] Work Phone: Instructions* Name Dates Details Patient Instructions Indication:BMI 24.0-24.9, adult Start:04-Nov-2021 Instruction Type:Provider Instructions for Treatment How to Access Health Informa tion Online using Patient Portal and [employer]rd [employer] Apps Indication:BMI 24.0-24.9, adult Start:04-Nov-2021 Instruction Type:Patient Education Patient Instructions Indication:Night sweats Start:06-Jul-2021 Instruction Type:Provider Instructions for Treatment How to Access Health Informa tion Online using Patient Portal and [employer] Apps Indication:Night sweats Start:06-Jul-2021 Instruction Type:Patient Education Patient Instructions Indication:[facility] Start:10-Jun-2021 Instruction Type:Provider Instructions for Treatment How to Access Health Informa tion Online using Patient Portal and [employer] Indication:[facility] EX[facility] Start:10-Jun-2021 Instruction Type:Patient Education Patient Instructions Indication:Nonsmoker Start:01-Jun-2021 Instruction Type:Provider Instructions for Treatment How to Access Health Informa tion Online using Patient Portal and [employer] Indication:Nonsmoker Start:01-Jun-2021 Instruction Type:Patient Education Patient Instructions Indication:Hypertension Start:06-Feb-2021 Instruction Type:Provider Instructions for Treatment How to Access Health Informa tion Online using Patient Portal and [employer] Indication:Hypertension Start:06-Feb-2021 Instruction Type:Patient Education Patient Instructions Indication:Other and unspecified hyperlipidemia Start:28-Apr-2020 Instruction Type:Provider Instructions for Treatment How to Access Health Informa tion Online using Patient Portal and [employer] Indication:Other and unspecified hyperlipidemia Start:28-Apr-2020 Instruction Type:Patient Education How to access health informa tion online Indication:Neuropathy Start:18-Mar-2020 Instruction Type:Patient Education How to access health informa tion online Indication:Neuropathy Start:18-Mar-2020 Instruction Type:Patient Education Patient Instructions Indication:Neuropathy Start:18-Mar-2020 Instruction Type:Provider Instructions for Treatment How to access health informa tion online Indication:Skin tear of right upper extremity Start:02-Jan-2020 Instruction Type:Patient Education How to access health informa tion online - Detail Indication:Skin tear of right upper extremity Start:02-Jan-2020 Instruction Type:Patient Education Patient Instructions Indication:Skin tear of right upper extremity Start:02-Jan-2020 Instruction Type:Provider Instructions for Treatment How to access health informa tion online Indication:BMI 25.0-25.9,adult Start:24-Oct-2019 Instruction Type:Patient Education How to access health informa tion online - Detail Indication:BMI 25.0-25.9,adult Start:24-Oct-2019 Instruction Type:Patient Education Patient Instructions Indication:BMI 25.0-25.9,adult Start:24-Oct-2019 Instruction Type:Provider Instructions for Treatment How to access health informa tion online Indication:Nonsmoker Start:17-Jul-2019 Instruction Type:Patient Education How to access health informa tion online - Detail Indication:Nonsmoker Start:17-Jul-2019 Instruction Type:Patient Education Patient Instructions Indication:Nonsmoker Start:17-Jul-2019 Instruction Type:Provider Instructions for Treatment How to access health informa tion online Indication:Joint pain Start:10-Jul-2019 Instruction Type:Patient Education How to access health informa tion online - Detail Indication:Joint pain Start:10-Jul-2019 Instruction Type:Patient Education Patient Instructions Indication:Joint pain Start:10-Jul-2019 Instruction Type:Provider Instructions for Treatment How to access health informa tion online Indication:Sore throat Start:10-Nov-2015 Instruction Type:Patient Education How to access health informa tion online - Detail Indication:Sore throat Start:10-Nov-2015 Instruction Type:Patient Education Patient Instructions Indication:Sore throat Start:10-Nov-2015 Instruction Type:Provider Instructions for Treatment How to access health informa tion online Indication:PRE-OPERATIVE EXAMINATION, UNSPECIFIED Start:07-Mar-2015 Instruction Type:Patient Education How to access health informa tion online - Detail Indication:PRE-OPERATIVE EXAMINATION, UNSPECIFIED Start:07-Mar-2015 Instruction Type:Patient Education Patient Instructions Indication:PRE-OPERATIVE EXAMINATION, UNSPECIFIED Start:07-Mar-2015 Instruction Type:Provider Instructions for Treatment Patient Instructions Indication:Hypertension Start:08-Jul-2014 Instruction Type:Provider Instructions for Treatment How to access health informa tion online Indication:Other and unspecified hyperlipidemia Start:19-Nov-2013 Instruction Type:Patient Education How to access health informa tion online - Detail Indication:Other and unspecified hyperlipidemia Start:19-Nov-2013 Instruction Type:Patient Education Patient Instructions Indication:GERD (gastroesophageal reflux disease) Start:19-Nov-2013 Instruction Type:Provider Instructions for Treatment Patient Instructions Indication:Impaired Fasting Glucose Start:25-Apr-2013 Instruction Type:Provider Instructions for Treatment Patient Instructions Indication:Hypertension Start:14-Aug-2012 Instruction Type:Provider Instructions for Treatment Patient Instructions Indication:Impaired Fasting Glucose Start:03-Apr-2012 Instruction Type:Provider Instructions for Treatment [facility]; [facility] Work Phone: Instructions* Name Dates Details Patient Instructions Indication:BMI 24.0-24.9, adult Start:30-Nov-2021 Instruction Type:Provider Instructions for Treatment How to Access Health Informa tion Online using Patient Portal and [employer] Apps Indication:BMI 24.0-24.9, adult Start:30-Nov-2021 Instruction Type:Patient Education Patient Instructions Indication:BMI 24.0-24.9, adult Start:04-Nov-2021 Instruction Type:Provider Instructions for Treatment How to Access Health Informa tion Online using Patient Portal and [employer] Indication:BMI 24.0-24.9, adult Start:04-Nov-2021 Instruction Type:Patient Education Patient Instructions Indication:Night sweats Start:06-Jul-2021 Instruction Type:Provider Instructions for Treatment How to Access Health Informa tion Online using Patient Portal and [employer] Indication:Night sweats Start:06-Jul-2021 Instruction Type:Patient Education Patient Instructions Indication:[facility] EX[facility] Start:10-Jun-2021 Instruction Type:Provider Instructions for Treatment How to Access Health Informa tion Online using Patient Portal and [employer] Indication:[facility] EX[facility] Start:10-Jun-2021 Instruction Type:Patient Education Patient Instructions Indication:Nonsmoker Start:01-Jun-2021 Instruction Type:Provider Instructions for Treatment How to Access Health Informa tion Online using Patient Portal and [employer] Indication:Nonsmoker Start:01-Jun-2021 Instruction Type:Patient Education Patient Instructions Indication:Hypertension Start:06-Feb-2021 Instruction Type:Provider Instructions for Treatment How to Access Health Informa tion Online using Patient Portal and [employer] Apps Indication:Hypertension Start:06-Feb-2021 Instruction Type:Patient Education Patient Instructions Indication:Other and unspecified hyperlipidemia Start:28-Apr-2020 Instruction Type:Provider Instructions for Treatment How to Access Health Informa tion Online using Patient Portal and [employer] Indication:Other and unspecified hyperlipidemia Start:28-Apr-2020 Instruction Type:Patient Education How to access health informa tion online Indication:Neuropathy Start:18-Mar-2020 Instruction Type:Patient Education How to access health informa tion online Indication:Neuropathy Start:18-Mar-2020 Instruction Type:Patient Education Patient Instructions Indication:Neuropathy Start:18-Mar-2020 Instruction Type:Provider Instructions for Treatment How to access health informa tion online Indication:Skin tear of right upper extremity Start:02-Jan-2020 Instruction Type:Patient Education How to access health informa tion online - Detail Indication:Skin tear of right upper extremity Start:02-Jan-2020 Instruction Type:Patient Education Patient Instructions Indication:Skin tear of right upper extremity Start:02-Jan-2020 Instruction Type:Provider Instructions for Treatment How to access health informa tion online Indication:BMI 25.0-25.9,adult Start:24-Oct-2019 Instruction Type:Patient Education How to access health informa tion online - Detail Indication:BMI 25.0-25.9,adult Start:24-Oct-2019 Instruction Type:Patient Education Patient Instructions Indication:BMI 25.0-25.9,adult Start:24-Oct-2019 Instruction Type:Provider Instructions for Treatment How to access health informa tion online Indication:Nonsmoker Start:17-Jul-2019 Instruction Type:Patient Education How to access health informa tion online - Detail Indication:Nonsmoker Start:17-Jul-2019 Instruction Type:Patient Education Patient Instructions Indication:Nonsmoker Start:17-Jul-2019 Instruction Type:Provider Instructions for Treatment How to access health informa tion online Indication:Joint pain Start:10-Jul-2019 Instruction Type:Patient Education How to access health informa tion online - Detail Indication:Joint pain Start:10-Jul-2019 Instruction Type:Patient Education Patient Instructions Indication:Joint pain Start:10-Jul-2019 Instruction Type:Provider Instructions for Treatment How to access health informa tion online Indication:Sore throat Start:10-Nov-2015 Instruction Type:Patient Education How to access health informa tion online - Detail Indication:Sore throat Start:10-Nov-2015 Instruction Type:Patient Education Patient Instructions Indication:Sore throat Start:10-Nov-2015 Instruction Type:Provider Instructions for Treatment How to access health informa tion online Indication:PRE-OPERATIVE EXAMINATION, UNSPECIFIED Start:07-Mar-2015 Instruction Type:Patient Education How to access health informa tion online - Detail Indication:PRE-OPERATIVE EXAMINATION, UNSPECIFIED Start:07-Mar-2015 Instruction Type:Patient Education Patient Instructions Indication:PRE-OPERATIVE EXAMINATION, UNSPECIFIED Start:07-Mar-2015 Instruction Type:Provider Instructions for Treatment Patient Instructions Indication:Hypertension Start:08-Jul-2014 Instruction Type:Provider Instructions for Treatment How to access health informa tion online Indication:Other and unspecified hyperlipidemia Start:19-Nov-2013 Instruction Type:Patient Education How to access health informa tion online - Detail Indication:Other and unspecified hyperlipidemia Start:19-Nov-2013 Instruction Type:Patient Education Patient Instructions Indication:GERD (gastroesophageal reflux disease) Start:19-Nov-2013 Instruction Type:Provider Instructions for Treatment Patient Instructions Indication:Impaired Fasting Glucose Start:25-Apr-2013 Instruction Type:Provider Instructions for Treatment Patient Instructions Indication:Hypertension Start:14-Aug-2012 Instruction Type:Provider Instructions for Treatment Patient Instructions Indication:Impaired Fasting Glucose Start:03-Apr-2012 Instruction Type:Provider Instructions for Treatment [facility]; [facility] Work Phone: Instructions* Name Dates Details Patient Instructions Indication:BMI 24.0-24.9, adult Start:30-Nov-2021 Instruction Type:Provider Instructions for Treatment How to Access Health Informa tion Online using Patient Portal and [employer] Indication:BMI 24.0-24.9, adult Start:30-Nov-2021 Instruction Type:Patient Education Patient Instructions Indication:BMI 24.0-24.9, adult Start:04-Nov-2021 Instruction Type:Provider Instructions for Treatment How to Access Health Informa tion Online using Patient Portal and [employer] Indication:BMI 24.0-24.9, adult Start:04-Nov-2021 Instruction Type:Patient Education Patient Instructions Indication:Night sweats Start:06-Jul-2021 Instruction Type:Provider Instructions for Treatment How to Access Health Informa tion Online using Patient Portal and [employer] Apps Indication:Night sweats Start:06-Jul-2021 Instruction Type:Patient Education Patient Instructions Indication:[facility] EX[facility] Start:10-Jun-2021 Instruction Type:Provider Instructions for Treatment How to Access Health Informa tion Online using Patient Portal and [employer] Apps Indication:[facility] EXAM Start:10-Jun-2021 Instruction Type:Patient Education Patient Instructions Indication:Nonsmoker Start:01-Jun-2021 Instruction Type:Provider Instructions for Treatment How to Access Health Informa tion Online using Patient Portal and [employer] Apps Indication:Nonsmoker Start:01-Jun-2021 Instruction Type:Patient Education Patient Instructions Indication:Hypertension Start:06-Feb-2021 Instruction Type:Provider Instructions for Treatment How to Access Health Informa tion Online using Patient Portal and [employer] Apps Indication:Hypertension Start:06-Feb-2021 Instruction Type:Patient Education Patient Instructions Indication:Other and unspecified hyperlipidemia Start:28-Apr-2020 Instruction Type:Provider Instructions for Treatment How to Access Health Informa tion Online using Patient Portal and [employer] Apps Indication:Other and unspecified hyperlipidemia Start:28-Apr-2020 Instruction Type:Patient Education How to access health informa tion online Indication:Neuropathy Start:18-Mar-2020 Instruction Type:Patient Education How to access health informa tion online Indication:Neuropathy Start:18-Mar-2020 Instruction Type:Patient Education Patient Instructions Indication:Neuropathy Start:18-Mar-2020 Instruction Type:Provider Instructions for Treatment How to access health informa tion online Indication:Skin tear of right upper extremity Start:02-Jan-2020 Instruction Type:Patient Education How to access health informa tion online - Detail Indication:Skin tear of right upper extremity Start:02-Jan-2020 Instruction Type:Patient Education Patient Instructions Indication:Skin tear of right upper extremity Start:02-Jan-2020 Instruction Type:Provider Instructions for Treatment How to access health informa tion online Indication:BMI 25.0-25.9,adult Start:24-Oct-2019 Instruction Type:Patient Education How to access health informa tion online - Detail Indication:BMI 25.0-25.9,adult Start:24-Oct-2019 Instruction Type:Patient Education Patient Instructions Indication:BMI 25.0-25.9,adult Start:24-Oct-2019 Instruction Type:Provider Instructions for Treatment How to access health informa tion online Indication:Nonsmoker Start:17-Jul-2019 Instruction Type:Patient Education How to access health informa tion online - Detail Indication:Nonsmoker Start:17-Jul-2019 Instruction Type:Patient Education Patient Instructions Indication:Nonsmoker Start:17-Jul-2019 Instruction Type:Provider Instructions for Treatment How to access health informa tion online Indication:Joint pain Start:10-Jul-2019 Instruction Type:Patient Education How to access health informa tion online - Detail Indication:Joint pain Start:10-Jul-2019 Instruction Type:Patient Education Patient Instructions Indication:Joint pain Start:10-Jul-2019 Instruction Type:Provider Instructions for Treatment How to access health informa tion online Indication:Sore throat Start:10-Nov-2015 Instruction Type:Patient Education How to access health informa tion online - Detail Indication:Sore throat Start:10-Nov-2015 Instruction Type:Patient Education Patient Instructions Indication:Sore throat Start:10-Nov-2015 Instruction Type:Provider Instructions for Treatment How to access health informa tion online Indication:PRE-OPERATIVE EXAMINATION, UNSPECIFIED Start:07-Mar-2015 Instruction Type:Patient Education How to access health informa tion online - Detail Indication:PRE-OPERATIVE EXAMINATION, UNSPECIFIED Start:07-Mar-2015 Instruction Type:Patient Education Patient Instructions Indication:PRE-OPERATIVE EXAMINATION, UNSPECIFIED Start:07-Mar-2015 Instruction Type:Provider Instructions for Treatment Patient Instructions Indication:Hypertension Start:08-Jul-2014 Instruction Type:Provider Instructions for Treatment How to access health informa tion online Indication:Other and unspecified hyperlipidemia Start:19-Nov-2013 Instruction Type:Patient Education How to access health informa tion online - Detail Indication:Other and unspecified hyperlipidemia Start:19-Nov-2013 Instruction Type:Patient Education Patient Instructions Indication:GERD (gastroesophageal reflux disease) Start:19-Nov-2013 Instruction Type:Provider Instructions for Treatment Patient Instructions Indication:Impaired Fasting Glucose Start:25-Apr-2013 Instruction Type:Provider Instructions for Treatment Patient Instructions Indication:Hypertension Start:14-Aug-2012 Instruction Type:Provider Instructions for Treatment Patient Instructions Indication:Impaired Fasting Glucose Start:03-Apr-2012 Instruction Type:Provider Instructions for Treatment [facility]; [facility] Work Phone: Instructions* Name Dates Details Patient Instructions Indication:BMI 24.0-24.9, adult Start:30-Nov-2021 Instruction Type:Provider Instructions for Treatment How to Access Health Informa tion Online using Patient Portal and [employer] Apps Indication:BMI 24.0-24.9, adult Start:30-Nov-2021 Instruction Type:Patient Education Patient Instructions Indication:BMI 24.0-24.9, adult Start:04-Nov-2021 Instruction Type:Provider Instructions for Treatment How to Access Health Informa tion Online using Patient Portal and [employer] Apps Indication:BMI 24.0-24.9, adult Start:04-Nov-2021 Instruction Type:Patient Education Patient Instructions Indication:Night sweats Start:06-Jul-2021 Instruction Type:Provider Instructions for Treatment How to Access Health Informa tion Online using Patient Portal and [employer] Apps Indication:Night sweats Start:06-Jul-2021 Instruction Type:Patient Education Patient Instructions Indication:[facility] EX[facility] Start:10-Jun-2021 Instruction Type:Provider Instructions for Treatment How to Access Health Informa tion Online using Patient Portal and [employer]rd [employer] Apps Indication:[facility] EX[facility] Start:10-Jun-2021 Instruction Type:Patient Education Patient Instructions Indication:Nonsmoker Start:01-Jun-2021 Instruction Type:Provider Instructions for Treatment How to Access Health Informa tion Online using Patient Portal and [employer] Indication:Nonsmoker Start:01-Jun-2021 Instruction Type:Patient Education Patient Instructions Indication:Hypertension Start:06-Feb-2021 Instruction Type:Provider Instructions for Treatment How to Access Health Informa tion Online using Patient Portal and [employer] Apps Indication:Hypertension Start:06-Feb-2021 Instruction Type:Patient Education Patient Instructions Indication:Other and unspecified hyperlipidemia Start:28-Apr-2020 Instruction Type:Provider Instructions for Treatment How to Access Health Informa tion Online using Patient Portal and [employer] Apps Indication:Other and unspecified hyperlipidemia Start:28-Apr-2020 Instruction Type:Patient Education How to access health informa tion online Indication:Neuropathy Start:18-Mar-2020 Instruction Type:Patient Education How to access health informa tion online Indication:Neuropathy Start:18-Mar-2020 Instruction Type:Patient Education Patient Instructions Indication:Neuropathy Start:18-Mar-2020 Instruction Type:Provider Instructions for Treatment How to access health informa tion online Indication:Skin tear of right upper extremity Start:02-Jan-2020 Instruction Type:Patient Education How to access health informa tion online - Detail Indication:Skin tear of right upper extremity Start:02-Jan-2020 Instruction Type:Patient Education Patient Instructions Indication:Skin tear of right upper extremity Start:02-Jan-2020 Instruction Type:Provider Instructions for Treatment How to access health informa tion online Indication:BMI 25.0-25.9,adult Start:24-Oct-2019 Instruction Type:Patient Education How to access health informa tion online - Detail Indication:BMI 25.0-25.9,adult Start:24-Oct-2019 Instruction Type:Patient Education Patient Instructions Indication:BMI 25.0-25.9,adult Start:24-Oct-2019 Instruction Type:Provider Instructions for Treatment How to access health informa tion online Indication:Nonsmoker Start:17-Jul-2019 Instruction Type:Patient Education How to access health informa tion online - Detail Indication:Nonsmoker Start:17-Jul-2019 Instruction Type:Patient Education Patient Instructions Indication:Nonsmoker Start:17-Jul-2019 Instruction Type:Provider Instructions for Treatment How to access health informa tion online Indication:Joint pain Start:10-Jul-2019 Instruction Type:Patient Education How to access health informa tion online - Detail Indication:Joint pain Start:10-Jul-2019 Instruction Type:Patient Education Patient Instructions Indication:Joint pain Start:10-Jul-2019 Instruction Type:Provider Instructions for Treatment How to access health informa tion online Indication:Sore throat Start:10-Nov-2015 Instruction Type:Patient Education How to access health informa tion online - Detail Indication:Sore throat Start:10-Nov-2015 Instruction Type:Patient Education Patient Instructions Indication:Sore throat Start:10-Nov-2015 Instruction Type:Provider Instructions for Treatment How to access health informa tion online Indication:PRE-OPERATIVE EXAMINATION, UNSPECIFIED Start:07-Mar-2015 Instruction Type:Patient Education How to access health informa tion online - Detail Indication:PRE-OPERATIVE EXAMINATION, UNSPECIFIED Start:07-Mar-2015 Instruction Type:Patient Education Patient Instructions Indication:PRE-OPERATIVE EXAMINATION, UNSPECIFIED Start:07-Mar-2015 Instruction Type:Provider Instructions for Treatment Patient Instructions Indication:Hypertension Start:08-Jul-2014 Instruction Type:Provider Instructions for Treatment How to access health informa tion online Indication:Other and unspecified hyperlipidemia Start:19-Nov-2013 Instruction Type:Patient Education How to access health informa tion online - Detail Indication:Other and unspecified hyperlipidemia Start:19-Nov-2013 Instruction Type:Patient Education Patient Instructions Indication:GERD (gastroesophageal reflux disease) Start:19-Nov-2013 Instruction Type:Provider Instructions for Treatment Patient Instructions Indication:Impaired Fasting Glucose Start:25-Apr-2013 Instruction Type:Provider Instructions for Treatment Patient Instructions Indication:Hypertension Start:14-Aug-2012 Instruction Type:Provider Instructions for Treatment Patient Instructions Indication:Impaired Fasting Glucose Start:03-Apr-2012 Instruction Type:Provider Instructions for Treatment [facility]; [facility] Work Phone: Instructions* Name Dates Details Patient Instructions Indication:Nonsmoker Start:29-Dec-2021 Instruction Type:Provider Instructions for Treatment How to Access Health Informa tion Online using Patient Portal and [employer] Indication:Nonsmoker Start:29-Dec-2021 Instruction Type:Patient Education Patient Instructions Indication:BMI 24.0-24.9, adult Start:30-Nov-2021 Instruction Type:Provider Instructions for Treatment How to Access Health Informa tion Online using Patient Portal and [employer] Indication:BMI 24.0-24.9, adult Start:30-Nov-2021 Instruction Type:Patient Education Patient Instructions Indication:BMI 24.0-24.9, adult Start:04-Nov-2021 Instruction Type:Provider Instructions for Treatment How to Access Health Informa tion Online using Patient Portal and [employer] Apps Indication:BMI 24.0-24.9, adult Start:04-Nov-2021 Instruction Type:Patient Education Patient Instructions Indication:Night sweats Start:06-Jul-2021 Instruction Type:Provider Instructions for Treatment How to Access Health Informa tion Online using Patient Portal and [employer] Apps Indication:Night sweats Start:06-Jul-2021 Instruction Type:Patient Education Patient Instructions Indication:[facility] EX[facility] Start:10-Jun-2021 Instruction Type:Provider Instructions for Treatment How to Access Health Informa tion Online using Patient Portal and [employer] Apps Indication:[facility] EXAM Start:10-Jun-2021 Instruction Type:Patient Education Patient Instructions Indication:Nonsmoker Start:01-Jun-2021 Instruction Type:Provider Instructions for Treatment How to Access Health Informa tion Online using Patient Portal and [employer] Apps Indication:Nonsmoker Start:01-Jun-2021 Instruction Type:Patient Education Patient Instructions Indication:Hypertension Start:06-Feb-2021 Instruction Type:Provider Instructions for Treatment How to Access Health Informa tion Online using Patient Portal and [employer] Apps Indication:Hypertension Start:06-Feb-2021 Instruction Type:Patient Education Patient Instructions Indication:Other and unspecified hyperlipidemia Start:28-Apr-2020 Instruction Type:Provider Instructions for Treatment How to Access Health Informa tion Online using Patient Portal and [employer] Indication:Other and unspecified hyperlipidemia Start:28-Apr-2020 Instruction Type:Patient Education How to access health informa tion online Indication:Neuropathy Start:18-Mar-2020 Instruction Type:Patient Education How to access health informa tion online Indication:Neuropathy Start:18-Mar-2020 Instruction Type:Patient Education Patient Instructions Indication:Neuropathy Start:18-Mar-2020 Instruction Type:Provider Instructions for Treatment How to access health informa tion online Indication:Skin tear of right upper extremity Start:02-Jan-2020 Instruction Type:Patient Education How to access health informa tion online - Detail Indication:Skin tear of right upper extremity Start:02-Jan-2020 Instruction Type:Patient Education Patient Instructions Indication:Skin tear of right upper extremity Start:02-Jan-2020 Instruction Type:Provider Instructions for Treatment How to access health informa tion online Indication:BMI 25.0-25.9,adult Start:24-Oct-2019 Instruction Type:Patient Education How to access health informa tion online - Detail Indication:BMI 25.0-25.9,adult Start:24-Oct-2019 Instruction Type:Patient Education Patient Instructions Indication:BMI 25.0-25.9,adult Start:24-Oct-2019 Instruction Type:Provider Instructions for Treatment How to access health informa tion online Indication:Nonsmoker Start:17-Jul-2019 Instruction Type:Patient Education How to access health informa tion online - Detail Indication:Nonsmoker Start:17-Jul-2019 Instruction Type:Patient Education Patient Instructions Indication:Nonsmoker Start:17-Jul-2019 Instruction Type:Provider Instructions for Treatment How to access health informa tion online Indication:Joint pain Start:10-Jul-2019 Instruction Type:Patient Education How to access health informa tion online - Detail Indication:Joint pain Start:10-Jul-2019 Instruction Type:Patient Education Patient Instructions Indication:Joint pain Start:10-Jul-2019 Instruction Type:Provider Instructions for Treatment How to access health informa tion online Indication:Sore throat Start:10-Nov-2015 Instruction Type:Patient Education How to access health informa tion online - Detail Indication:Sore throat Start:10-Nov-2015 Instruction Type:Patient Education Patient Instructions Indication:Sore throat Start:10-Nov-2015 Instruction Type:Provider Instructions for Treatment How to access health informa tion online Indication:PRE-OPERATIVE EXAMINATION, UNSPECIFIED Start:07-Mar-2015 Instruction Type:Patient Education How to access health informa tion online - Detail Indication:PRE-OPERATIVE EXAMINATION, UNSPECIFIED Start:07-Mar-2015 Instruction Type:Patient Education Patient Instructions Indication:PRE-OPERATIVE EXAMINATION, UNSPECIFIED Start:07-Mar-2015 Instruction Type:Provider Instructions for Treatment Patient Instructions Indication:Hypertension Start:08-Jul-2014 Instruction Type:Provider Instructions for Treatment How to access health informa tion online Indication:Other and unspecified hyperlipidemia Start:19-Nov-2013 Instruction Type:Patient Education How to access health informa tion online - Detail Indication:Other and unspecified hyperlipidemia Start:19-Nov-2013 Instruction Type:Patient Education Patient Instructions Indication:GERD (gastroesophageal reflux disease) Start:19-Nov-2013 Instruction Type:Provider Instructions for Treatment Patient Instructions Indication:Impaired Fasting Glucose Start:25-Apr-2013 Instruction Type:Provider Instructions for Treatment Patient Instructions Indication:Hypertension Start:14-Aug-2012 Instruction Type:Provider Instructions for Treatment Patient Instructions Indication:Impaired Fasting Glucose Start:03-Apr-2012 Instruction Type:Provider Instructions for Treatment [facility]; [facility] Work Phone: Instructions* Name Dates Details Patient Instructions Indication:Osteopenia Start:19-Jan-2022 Instruction Type:Provider Instructions for Treatment How to Access Health Informa tion Online using Patient Portal and [employer] Indication:Osteopenia Start:19-Jan-2022 Instruction Type:Patient Education Patient Instructions Indication:Nonsmoker Start:29-Dec-2021 Instruction Type:Provider Instructions for Treatment How to Access Health Informa tion Online using Patient Portal and [employer] Indication:Nonsmoker Start:29-Dec-2021 Instruction Type:Patient Education Patient Instructions Indication:BMI 24.0-24.9, adult Start:30-Nov-2021 Instruction Type:Provider Instructions for Treatment How to Access Health Informa tion Online using Patient Portal and [employer] Indication:BMI 24.0-24.9, adult Start:30-Nov-2021 Instruction Type:Patient Education Patient Instructions Indication:BMI 24.0-24.9, adult Start:04-Nov-2021 Instruction Type:Provider Instructions for Treatment How to Access Health Informa tion Online using Patient Portal and [employer] Indication:BMI 24.0-24.9, adult Start:04-Nov-2021 Instruction Type:Patient Education Patient Instructions Indication:Night sweats Start:06-Jul-2021 Instruction Type:Provider Instructions for Treatment How to Access Health Informa tion Online using Patient Portal and [employer] Indication:Night sweats Start:06-Jul-2021 Instruction Type:Patient Education Patient Instructions Indication:[facility] EX[facility] Start:10-Jun-2021 Instruction Type:Provider Instructions for Treatment How to Access Health Informa tion Online using Patient Portal and [employer] Indication:[facility] EX[facility] Start:10-Jun-2021 Instruction Type:Patient Education Patient Instructions Indication:Nonsmoker Start:01-Jun-2021 Instruction Type:Provider Instructions for Treatment How to Access Health Informa tion Online using Patient Portal and [employer] Indication:Nonsmoker Start:01-Jun-2021 Instruction Type:Patient Education Patient Instructions Indication:Hypertension Start:06-Feb-2021 Instruction Type:Provider Instructions for Treatment How to Access Health Informa tion Online using Patient Portal and [employer] Indication:Hypertension Start:06-Feb-2021 Instruction Type:Patient Education Patient Instructions Indication:Other and unspecified hyperlipidemia Start:28-Apr-2020 Instruction Type:Provider Instructions for Treatment How to Access Health Informa tion Online using Patient Portal and [employer] Indication:Other and unspecified hyperlipidemia Start:28-Apr-2020 Instruction Type:Patient Education How to access health informa tion online Indication:Neuropathy Start:18-Mar-2020 Instruction Type:Patient Education How to access health informa tion online Indication:Neuropathy Start:18-Mar-2020 Instruction Type:Patient Education Patient Instructions Indication:Neuropathy Start:18-Mar-2020 Instruction Type:Provider Instructions for Treatment How to access health informa tion online Indication:Skin tear of right upper extremity Start:02-Jan-2020 Instruction Type:Patient Education How to access health informa tion online - Detail Indication:Skin tear of right upper extremity Start:02-Jan-2020 Instruction Type:Patient Education Patient Instructions Indication:Skin tear of right upper extremity Start:02-Jan-2020 Instruction Type:Provider Instructions for Treatment How to access health informa tion online Indication:BMI 25.0-25.9,adult Start:24-Oct-2019 Instruction Type:Patient Education How to access health informa tion online - Detail Indication:BMI 25.0-25.9,adult Start:24-Oct-2019 Instruction Type:Patient Education Patient Instructions Indication:BMI 25.0-25.9,adult Start:24-Oct-2019 Instruction Type:Provider Instructions for Treatment How to access health informa tion online Indication:Nonsmoker Start:17-Jul-2019 Instruction Type:Patient Education How to access health informa tion online - Detail Indication:Nonsmoker Start:17-Jul-2019 Instruction Type:Patient Education Patient Instructions Indication:Nonsmoker Start:17-Jul-2019 Instruction Type:Provider Instructions for Treatment How to access health informa tion online Indication:Joint pain Start:10-Jul-2019 Instruction Type:Patient Education How to access health informa tion online - Detail Indication:Joint pain Start:10-Jul-2019 Instruction Type:Patient Education Patient Instructions Indication:Joint pain Start:10-Jul-2019 Instruction Type:Provider Instructions for Treatment How to access health informa tion online Indication:Sore throat Start:10-Nov-2015 Instruction Type:Patient Education How to access health informa tion online - Detail Indication:Sore throat Start:10-Nov-2015 Instruction Type:Patient Education Patient Instructions Indication:Sore throat Start:10-Nov-2015 Instruction Type:Provider Instructions for Treatment How to access health informa tion online Indication:PRE-OPERATIVE EXAMINATION, UNSPECIFIED Start:07-Mar-2015 Instruction Type:Patient Education How to access health informa tion online - Detail Indication:PRE-OPERATIVE EXAMINATION, UNSPECIFIED Start:07-Mar-2015 Instruction Type:Patient Education Patient Instructions Indication:PRE-OPERATIVE EXAMINATION, UNSPECIFIED Start:07-Mar-2015 Instruction Type:Provider Instructions for Treatment Patient Instructions Indication:Hypertension Start:08-Jul-2014 Instruction Type:Provider Instructions for Treatment How to access health informa tion online Indication:Other and unspecified hyperlipidemia Start:19-Nov-2013 Instruction Type:Patient Education How to access health informa tion online - Detail Indication:Other and unspecified hyperlipidemia Start:19-Nov-2013 Instruction Type:Patient Education Patient Instructions Indication:GERD (gastroesophageal reflux disease) Start:19-Nov-2013 Instruction Type:Provider Instructions for Treatment Patient Instructions Indication:Impaired Fasting Glucose Start:25-Apr-2013 Instruction Type:Provider Instructions for Treatment Patient Instructions Indication:Hypertension Start:14-Aug-2012 Instruction Type:Provider Instructions for Treatment Patient Instructions Indication:Impaired Fasting Glucose Start:03-Apr-2012 Instruction Type:Provider Instructions for Treatment [facility]; [facility] Work Phone: Instructions* Name Dates Details Patient Instructions Indication:Osteopenia Start:19-Jan-2022 Instruction Type:Provider Instructions for Treatment How to Access Health Informa tion Online using Patient Portal and [employer] Indication:Osteopenia Start:19-Jan-2022 Instruction Type:Patient Education Patient Instructions Indication:Nonsmoker Start:29-Dec-2021 Instruction Type:Provider Instructions for Treatment How to Access Health Informa tion Online using Patient Portal and [employer] Indication:Nonsmoker Start:29-Dec-2021 Instruction Type:Patient Education Patient Instructions Indication:BMI 24.0-24.9, adult Start:30-Nov-2021 Instruction Type:Provider Instructions for Treatment How to Access Health Informa tion Online using Patient Portal and [employer] Indication:BMI 24.0-24.9, adult Start:30-Nov-2021 Instruction Type:Patient Education Patient Instructions Indication:BMI 24.0-24.9, adult Start:04-Nov-2021 Instruction Type:Provider Instructions for Treatment How to Access Health Informa tion Online using Patient Portal and [employer] Indication:BMI 24.0-24.9, adult Start:04-Nov-2021 Instruction Type:Patient Education Patient Instructions Indication:Night sweats Start:06-Jul-2021 Instruction Type:Provider Instructions for Treatment How to Access Health Informa tion Online using Patient Portal and [employer] Indication:Night sweats Start:06-Jul-2021 Instruction Type:Patient Education Patient Instructions Indication:[facility] Start:10-Jun-2021 Instruction Type:Provider Instructions for Treatment How to Access Health Informa tion Online using Patient Portal and [employer] Indication:[facility] EX[facility] Start:10-Jun-2021 Instruction Type:Patient Education Patient Instructions Indication:Nonsmoker Start:01-Jun-2021 Instruction Type:Provider Instructions for Treatment How to Access Health Informa tion Online using Patient Portal and [employer] Indication:Nonsmoker Start:01-Jun-2021 Instruction Type:Patient Education Patient Instructions Indication:Hypertension Start:06-Feb-2021 Instruction Type:Provider Instructions for Treatment How to Access Health Informa tion Online using Patient Portal and [employer] Indication:Hypertension Start:06-Feb-2021 Instruction Type:Patient Education Patient Instructions Indication:Other and unspecified hyperlipidemia Start:28-Apr-2020 Instruction Type:Provider Instructions for Treatment How to Access Health Informa tion Online using Patient Portal and [employer] Indication:Other and unspecified hyperlipidemia Start:28-Apr-2020 Instruction Type:Patient Education How to access health informa tion online Indication:Neuropathy Start:18-Mar-2020 Instruction Type:Patient Education How to access health informa tion online Indication:Neuropathy Start:18-Mar-2020 Instruction Type:Patient Education Patient Instructions Indication:Neuropathy Start:18-Mar-2020 Instruction Type:Provider Instructions for Treatment How to access health informa tion online Indication:Skin tear of right upper extremity Start:02-Jan-2020 Instruction Type:Patient Education How to access health informa tion online - Detail Indication:Skin tear of right upper extremity Start:02-Jan-2020 Instruction Type:Patient Education Patient Instructions Indication:Skin tear of right upper extremity Start:02-Jan-2020 Instruction Type:Provider Instructions for Treatment How to access health informa tion online Indication:BMI 25.0-25.9,adult Start:24-Oct-2019 Instruction Type:Patient Education How to access health informa tion online - Detail Indication:BMI 25.0-25.9,adult Start:24-Oct-2019 Instruction Type:Patient Education Patient Instructions Indication:BMI 25.0-25.9,adult Start:24-Oct-2019 Instruction Type:Provider Instructions for Treatment How to access health informa tion online Indication:Nonsmoker Start:17-Jul-2019 Instruction Type:Patient Education How to access health informa tion online - Detail Indication:Nonsmoker Start:17-Jul-2019 Instruction Type:Patient Education Patient Instructions Indication:Nonsmoker Start:17-Jul-2019 Instruction Type:Provider Instructions for Treatment How to access health informa tion online Indication:Joint pain Start:10-Jul-2019 Instruction Type:Patient Education How to access health informa tion online - Detail Indication:Joint pain Start:10-Jul-2019 Instruction Type:Patient Education Patient Instructions Indication:Joint pain Start:10-Jul-2019 Instruction Type:Provider Instructions for Treatment How to access health informa tion online Indication:Sore throat Start:10-Nov-2015 Instruction Type:Patient Education How to access health informa tion online - Detail Indication:Sore throat Start:10-Nov-2015 Instruction Type:Patient Education Patient Instructions Indication:Sore throat Start:10-Nov-2015 Instruction Type:Provider Instructions for Treatment How to access health informa tion online Indication:PRE-OPERATIVE EXAMINATION, UNSPECIFIED Start:07-Mar-2015 Instruction Type:Patient Education How to access health informa tion online - Detail Indication:PRE-OPERATIVE EXAMINATION, UNSPECIFIED Start:07-Mar-2015 Instruction Type:Patient Education Patient Instructions Indication:PRE-OPERATIVE EXAMINATION, UNSPECIFIED Start:07-Mar-2015 Instruction Type:Provider Instructions for Treatment Patient Instructions Indication:Hypertension Start:08-Jul-2014 Instruction Type:Provider Instructions for Treatment How to access health informa tion online Indication:Other and unspecified hyperlipidemia Start:19-Nov-2013 Instruction Type:Patient Education How to access health informa tion online - Detail Indication:Other and unspecified hyperlipidemia Start:19-Nov-2013 Instruction Type:Patient Education Patient Instructions Indication:GERD (gastroesophageal reflux disease) Start:19-Nov-2013 Instruction Type:Provider Instructions for Treatment Patient Instructions Indication:Impaired Fasting Glucose Start:25-Apr-2013 Instruction Type:Provider Instructions for Treatment Patient Instructions Indication:Hypertension Start:14-Aug-2012 Instruction Type:Provider Instructions for Treatment Patient Instructions Indication:Impaired Fasting Glucose Start:03-Apr-2012 Instruction Type:Provider Instructions for Treatment [facility]; [facility] Work Phone: Instructions* Name Dates Details Patient Instructions Indication:Osteopenia Start:19-Jan-2022 Instruction Type:Provider Instructions for Treatment How to Access Health Informa tion Online using Patient Portal and [employer] Apps Indication:Osteopenia Start:19-Jan-2022 Instruction Type:Patient Education Patient Instructions Indication:Nonsmoker Start:29-Dec-2021 Instruction Type:Provider Instructions for Treatment How to Access Health Informa tion Online using Patient Portal and [employer] Indication:Nonsmoker Start:29-Dec-2021 Instruction Type:Patient Education Patient Instructions Indication:BMI 24.0-24.9, adult Start:30-Nov-2021 Instruction Type:Provider Instructions for Treatment How to Access Health Informa tion Online using Patient Portal and [employer] Indication:BMI 24.0-24.9, adult Start:30-Nov-2021 Instruction Type:Patient Education Patient Instructions Indication:BMI 24.0-24.9, adult Start:04-Nov-2021 Instruction Type:Provider Instructions for Treatment How to Access Health Informa tion Online using Patient Portal and [employer] Indication:BMI 24.0-24.9, adult Start:04-Nov-2021 Instruction Type:Patient Education Patient Instructions Indication:Night sweats Start:06-Jul-2021 Instruction Type:Provider Instructions for Treatment How to Access Health Informa tion Online using Patient Portal and [employer] Indication:Night sweats Start:06-Jul-2021 Instruction Type:Patient Education Patient Instructions Indication:[facility] EX[facility] Start:10-Jun-2021 Instruction Type:Provider Instructions for Treatment How to Access Health Informa tion Online using Patient Portal and [employer] Indication:[facility] EX[facility] Start:10-Jun-2021 Instruction Type:Patient Education Patient Instructions Indication:Nonsmoker Start:01-Jun-2021 Instruction Type:Provider Instructions for Treatment How to Access Health Informa tion Online using Patient Portal and [employer] Indication:Nonsmoker Start:01-Jun-2021 Instruction Type:Patient Education Patient Instructions Indication:Hypertension Start:06-Feb-2021 Instruction Type:Provider Instructions for Treatment How to Access Health Informa tion Online using Patient Portal and [employer] Indication:Hypertension Start:06-Feb-2021 Instruction Type:Patient Education Patient Instructions Indication:Other and unspecified hyperlipidemia Start:28-Apr-2020 Instruction Type:Provider Instructions for Treatment How to Access Health Informa tion Online using Patient Portal and [employer] Indication:Other and unspecified hyperlipidemia Start:28-Apr-2020 Instruction Type:Patient Education How to access health informa tion online Indication:Neuropathy Start:18-Mar-2020 Instruction Type:Patient Education How to access health informa tion online Indication:Neuropathy Start:18-Mar-2020 Instruction Type:Patient Education Patient Instructions Indication:Neuropathy Start:18-Mar-2020 Instruction Type:Provider Instructions for Treatment How to access health informa tion online Indication:Skin tear of right upper extremity Start:02-Jan-2020 Instruction Type:Patient Education How to access health informa tion online - Detail Indication:Skin tear of right upper extremity Start:02-Jan-2020 Instruction Type:Patient Education Patient Instructions Indication:Skin tear of right upper extremity Start:02-Jan-2020 Instruction Type:Provider Instructions for Treatment How to access health informa tion online Indication:BMI 25.0-25.9,adult Start:24-Oct-2019 Instruction Type:Patient Education How to access health informa tion online - Detail Indication:BMI 25.0-25.9,adult Start:24-Oct-2019 Instruction Type:Patient Education Patient Instructions Indication:BMI 25.0-25.9,adult Start:24-Oct-2019 Instruction Type:Provider Instructions for Treatment How to access health informa tion online Indication:Nonsmoker Start:17-Jul-2019 Instruction Type:Patient Education How to access health informa tion online - Detail Indication:Nonsmoker Start:17-Jul-2019 Instruction Type:Patient Education Patient Instructions Indication:Nonsmoker Start:17-Jul-2019 Instruction Type:Provider Instructions for Treatment How to access health informa tion online Indication:Joint pain Start:10-Jul-2019 Instruction Type:Patient Education How to access health informa tion online - Detail Indication:Joint pain Start:10-Jul-2019 Instruction Type:Patient Education Patient Instructions Indication:Joint pain Start:10-Jul-2019 Instruction Type:Provider Instructions for Treatment How to access health informa tion online Indication:Sore throat Start:10-Nov-2015 Instruction Type:Patient Education How to access health informa tion online - Detail Indication:Sore throat Start:10-Nov-2015 Instruction Type:Patient Education Patient Instructions Indication:Sore throat Start:10-Nov-2015 Instruction Type:Provider Instructions for Treatment How to access health informa tion online Indication:PRE-OPERATIVE EXAMINATION, UNSPECIFIED Start:07-Mar-2015 Instruction Type:Patient Education How to access health informa tion online - Detail Indication:PRE-OPERATIVE EXAMINATION, UNSPECIFIED Start:07-Mar-2015 Instruction Type:Patient Education Patient Instructions Indication:PRE-OPERATIVE EXAMINATION, UNSPECIFIED Start:07-Mar-2015 Instruction Type:Provider Instructions for Treatment Patient Instructions Indication:Hypertension Start:08-Jul-2014 Instruction Type:Provider Instructions for Treatment How to access health informa tion online Indication:Other and unspecified hyperlipidemia Start:19-Nov-2013 Instruction Type:Patient Education How to access health informa tion online - Detail Indication:Other and unspecified hyperlipidemia Start:19-Nov-2013 Instruction Type:Patient Education Patient Instructions Indication:GERD (gastroesophageal reflux disease) Start:19-Nov-2013 Instruction Type:Provider Instructions for Treatment Patient Instructions Indication:Impaired Fasting Glucose Start:25-Apr-2013 Instruction Type:Provider Instructions for Treatment Patient Instructions Indication:Hypertension Start:14-Aug-2012 Instruction Type:Provider Instructions for Treatment Patient Instructions Indication:Impaired Fasting Glucose Start:03-Apr-2012 Instruction Type:Provider Instructions for Treatment [facility]; [facility] Work Phone: Instructions* Name Dates Details Patient Instructions Indication:Sore throat Start:03-Mar-2022 Instruction Type:Provider Instructions for Treatment How to Access Health Informa tion Online using Patient Portal and [employer] Indication:Sore throat Start:03-Mar-2022 Instruction Type:Patient Education Patient Instructions Indication:Osteopenia Start:19-Jan-2022 Instruction Type:Provider Instructions for Treatment How to Access Health Informa tion Online using Patient Portal and [employer] Indication:Osteopenia Start:19-Jan-2022 Instruction Type:Patient Education Patient Instructions Indication:Nonsmoker Start:29-Dec-2021 Instruction Type:Provider Instructions for Treatment How to Access Health Informa tion Online using Patient Portal and [employer] Indication:Nonsmoker Start:29-Dec-2021 Instruction Type:Patient Education Patient Instructions Indication:BMI 24.0-24.9, adult Start:30-Nov-2021 Instruction Type:Provider Instructions for Treatment How to Access Health Informa tion Online using Patient Portal and [employer] Indication:BMI 24.0-24.9, adult Start:30-Nov-2021 Instruction Type:Patient Education Patient Instructions Indication:BMI 24.0-24.9, adult Start:04-Nov-2021 Instruction Type:Provider Instructions for Treatment How to Access Health Informa tion Online using Patient Portal and [employer] Indication:BMI 24.0-24.9, adult Start:04-Nov-2021 Instruction Type:Patient Education Patient Instructions Indication:Night sweats Start:06-Jul-2021 Instruction Type:Provider Instructions for Treatment How to Access Health Informa tion Online using Patient Portal and [employer] Indication:Night sweats Start:06-Jul-2021 Instruction Type:Patient Education Patient Instructions Indication:[facility] EX[facility] Start:10-Jun-2021 Instruction Type:Provider Instructions for Treatment How to Access Health Informa tion Online using Patient Portal and [employer] Indication:[facility] Start:10-Jun-2021 Instruction Type:Patient Education Patient Instructions Indication:Nonsmoker Start:01-Jun-2021 Instruction Type:Provider Instructions for Treatment How to Access Health Informa tion Online using Patient Portal and [employer] Indication:Nonsmoker Start:01-Jun-2021 Instruction Type:Patient Education Patient Instructions Indication:Hypertension Start:06-Feb-2021 Instruction Type:Provider Instructions for Treatment How to Access Health Informa tion Online using Patient Portal and [employer] Indication:Hypertension Start:06-Feb-2021 Instruction Type:Patient Education Patient Instructions Indication:Other and unspecified hyperlipidemia Start:28-Apr-2020 Instruction Type:Provider Instructions for Treatment How to Access Health Informa tion Online using Patient Portal and [employer] Indication:Other and unspecified hyperlipidemia Start:28-Apr-2020 Instruction Type:Patient Education How to access health informa tion online Indication:Neuropathy Start:18-Mar-2020 Instruction Type:Patient Education How to access health informa tion online Indication:Neuropathy Start:18-Mar-2020 Instruction Type:Patient Education Patient Instructions Indication:Neuropathy Start:18-Mar-2020 Instruction Type:Provider Instructions for Treatment How to access health informa tion online Indication:Skin tear of right upper extremity Start:02-Jan-2020 Instruction Type:Patient Education How to access health informa tion online - Detail Indication:Skin tear of right upper extremity Start:02-Jan-2020 Instruction Type:Patient Education Patient Instructions Indication:Skin tear of right upper extremity Start:02-Jan-2020 Instruction Type:Provider Instructions for Treatment How to access health informa tion online Indication:BMI 25.0-25.9,adult Start:24-Oct-2019 Instruction Type:Patient Education How to access health informa tion online - Detail Indication:BMI 25.0-25.9,adult Start:24-Oct-2019 Instruction Type:Patient Education Patient Instructions Indication:BMI 25.0-25.9,adult Start:24-Oct-2019 Instruction Type:Provider Instructions for Treatment How to access health informa tion online Indication:Nonsmoker Start:17-Jul-2019 Instruction Type:Patient Education How to access health informa tion online - Detail Indication:Nonsmoker Start:17-Jul-2019 Instruction Type:Patient Education Patient Instructions Indication:Nonsmoker Start:17-Jul-2019 Instruction Type:Provider Instructions for Treatment How to access health informa tion online Indication:Joint pain Start:10-Jul-2019 Instruction Type:Patient Education How to access health informa tion online - Detail Indication:Joint pain Start:10-Jul-2019 Instruction Type:Patient Education Patient Instructions Indication:Joint pain Start:10-Jul-2019 Instruction Type:Provider Instructions for Treatment How to access health informa tion online Indication:Sore throat Start:10-Nov-2015 Instruction Type:Patient Education How to access health informa tion online - Detail Indication:Sore throat Start:10-Nov-2015 Instruction Type:Patient Education Patient Instructions Indication:Sore throat Start:10-Nov-2015 Instruction Type:Provider Instructions for Treatment How to access health informa tion online Indication:PRE-OPERATIVE EXAMINATION, UNSPECIFIED Start:07-Mar-2015 Instruction Type:Patient Education How to access health informa tion online - Detail Indication:PRE-OPERATIVE EXAMINATION, UNSPECIFIED Start:07-Mar-2015 Instruction Type:Patient Education Patient Instructions Indication:PRE-OPERATIVE EXAMINATION, UNSPECIFIED Start:07-Mar-2015 Instruction Type:Provider Instructions for Treatment Patient Instructions Indication:Hypertension Start:08-Jul-2014 Instruction Type:Provider Instructions for Treatment How to access health informa tion online Indication:Other and unspecified hyperlipidemia Start:19-Nov-2013 Instruction Type:Patient Education How to access health informa tion online - Detail Indication:Other and unspecified hyperlipidemia Start:19-Nov-2013 Instruction Type:Patient Education Patient Instructions Indication:GERD (gastroesophageal reflux disease) Start:19-Nov-2013 Instruction Type:Provider Instructions for Treatment Patient Instructions Indication:Impaired Fasting Glucose Start:25-Apr-2013 Instruction Type:Provider Instructions for Treatment Patient Instructions Indication:Hypertension Start:14-Aug-2012 Instruction Type:Provider Instructions for Treatment Patient Instructions Indication:Impaired Fasting Glucose Start:03-Apr-2012 Instruction Type:Provider Instructions for Treatment [facility]; [facility] Work Phone: Instructions* Name Dates Details Patient Instructions Indication:Sore throat Start:03-Mar-2022 Instruction Type:Provider Instructions for Treatment How to Access Health Informa tion Online using Patient Portal and [employer] Indication:Sore throat Start:03-Mar-2022 Instruction Type:Patient Education Patient Instructions Indication:Osteopenia Start:19-Jan-2022 Instruction Type:Provider Instructions for Treatment How to Access Health Informa tion Online using Patient Portal and [employer] Indication:Osteopenia Start:19-Jan-2022 Instruction Type:Patient Education Patient Instructions Indication:Nonsmoker Start:29-Dec-2021 Instruction Type:Provider Instructions for Treatment How to Access Health Informa tion Online using Patient Portal and [employer] Indication:Nonsmoker Start:29-Dec-2021 Instruction Type:Patient Education Patient Instructions Indication:BMI 24.0-24.9, adult Start:30-Nov-2021 Instruction Type:Provider Instructions for Treatment How to Access Health Informa tion Online using Patient Portal and [employer] Indication:BMI 24.0-24.9, adult Start:30-Nov-2021 Instruction Type:Patient Education Patient Instructions Indication:BMI 24.0-24.9, adult Start:04-Nov-2021 Instruction Type:Provider Instructions for Treatment How to Access Health Informa tion Online using Patient Portal and [employer] Indication:BMI 24.0-24.9, adult Start:04-Nov-2021 Instruction Type:Patient Education Patient Instructions Indication:Night sweats Start:06-Jul-2021 Instruction Type:Provider Instructions for Treatment How to Access Health Informa tion Online using Patient Portal and [employer] Indication:Night sweats Start:06-Jul-2021 Instruction Type:Patient Education Patient Instructions Indication:[facility] Start:10-Jun-2021 Instruction Type:Provider Instructions for Treatment How to Access Health Informa tion Online using Patient Portal and [employer] Indication:[facility] EX[facility] Start:10-Jun-2021 Instruction Type:Patient Education Patient Instructions Indication:Nonsmoker Start:01-Jun-2021 Instruction Type:Provider Instructions for Treatment How to Access Health Informa tion Online using Patient Portal and [employer] Indication:Nonsmoker Start:01-Jun-2021 Instruction Type:Patient Education Patient Instructions Indication:Hypertension Start:06-Feb-2021 Instruction Type:Provider Instructions for Treatment How to Access Health Informa tion Online using Patient Portal and [employer] Indication:Hypertension Start:06-Feb-2021 Instruction Type:Patient Education Patient Instructions Indication:Other and unspecified hyperlipidemia Start:28-Apr-2020 Instruction Type:Provider Instructions for Treatment How to Access Health Informa tion Online using Patient Portal and [employer] Indication:Other and unspecified hyperlipidemia Start:28-Apr-2020 Instruction Type:Patient Education How to access health informa tion online Indication:Neuropathy Start:18-Mar-2020 Instruction Type:Patient Education How to access health informa tion online Indication:Neuropathy Start:18-Mar-2020 Instruction Type:Patient Education Patient Instructions Indication:Neuropathy Start:18-Mar-2020 Instruction Type:Provider Instructions for Treatment How to access health informa tion online Indication:Skin tear of right upper extremity Start:02-Jan-2020 Instruction Type:Patient Education How to access health informa tion online - Detail Indication:Skin tear of right upper extremity Start:02-Jan-2020 Instruction Type:Patient Education Patient Instructions Indication:Skin tear of right upper extremity Start:02-Jan-2020 Instruction Type:Provider Instructions for Treatment How to access health informa tion online Indication:BMI 25.0-25.9,adult Start:24-Oct-2019 Instruction Type:Patient Education How to access health informa tion online - Detail Indication:BMI 25.0-25.9,adult Start:24-Oct-2019 Instruction Type:Patient Education Patient Instructions Indication:BMI 25.0-25.9,adult Start:24-Oct-2019 Instruction Type:Provider Instructions for Treatment How to access health informa tion online Indication:Nonsmoker Start:17-Jul-2019 Instruction Type:Patient Education How to access health informa tion online - Detail Indication:Nonsmoker Start:17-Jul-2019 Instruction Type:Patient Education Patient Instructions Indication:Nonsmoker Start:17-Jul-2019 Instruction Type:Provider Instructions for Treatment How to access health informa tion online Indication:Joint pain Start:10-Jul-2019 Instruction Type:Patient Education How to access health informa tion online - Detail Indication:Joint pain Start:10-Jul-2019 Instruction Type:Patient Education Patient Instructions Indication:Joint pain Start:10-Jul-2019 Instruction Type:Provider Instructions for Treatment How to access health informa tion online Indication:Sore throat Start:10-Nov-2015 Instruction Type:Patient Education How to access health informa tion online - Detail Indication:Sore throat Start:10-Nov-2015 Instruction Type:Patient Education Patient Instructions Indication:Sore throat Start:10-Nov-2015 Instruction Type:Provider Instructions for Treatment How to access health informa tion online Indication:PRE-OPERATIVE EXAMINATION, UNSPECIFIED Start:07-Mar-2015 Instruction Type:Patient Education How to access health informa tion online - Detail Indication:PRE-OPERATIVE EXAMINATION, UNSPECIFIED Start:07-Mar-2015 Instruction Type:Patient Education Patient Instructions Indication:PRE-OPERATIVE EXAMINATION, UNSPECIFIED Start:07-Mar-2015 Instruction Type:Provider Instructions for Treatment Patient Instructions Indication:Hypertension Start:08-Jul-2014 Instruction Type:Provider Instructions for Treatment How to access health informa tion online Indication:Other and unspecified hyperlipidemia Start:19-Nov-2013 Instruction Type:Patient Education How to access health informa tion online - Detail Indication:Other and unspecified hyperlipidemia Start:19-Nov-2013 Instruction Type:Patient Education Patient Instructions Indication:GERD (gastroesophageal reflux disease) Start:19-Nov-2013 Instruction Type:Provider Instructions for Treatment Patient Instructions Indication:Impaired Fasting Glucose Start:25-Apr-2013 Instruction Type:Provider Instructions for Treatment Patient Instructions Indication:Hypertension Start:14-Aug-2012 Instruction Type:Provider Instructions for Treatment Patient Instructions Indication:Impaired Fasting Glucose Start:03-Apr-2012 Instruction Type:Provider Instructions for Treatment [facility]; [facility] Work Phone: Instructions* Name Dates Details Patient Instructions Indication:Hypertension Start:15-Mar-2022 Instruction Type:Provider Instructions for Treatment How to Access Health Informa tion Online using Patient Portal and [employer] Apps Indication:Hypertension Start:15-Mar-2022 Instruction Type:Patient Education Patient Instructions Indication:Sore throat Start:03-Mar-2022 Instruction Type:Provider Instructions for Treatment How to Access Health Informa tion Online using Patient Portal and [employer] Apps Indication:Sore throat Start:03-Mar-2022 Instruction Type:Patient Education Patient Instructions Indication:Osteopenia Start:19-Jan-2022 Instruction Type:Provider Instructions for Treatment How to Access Health Informa tion Online using Patient Portal and [employer] Apps Indication:Osteopenia Start:19-Jan-2022 Instruction Type:Patient Education Patient Instructions Indication:Nonsmoker Start:29-Dec-2021 Instruction Type:Provider Instructions for Treatment How to Access Health Informa tion Online using Patient Portal and [employer] Apps Indication:Nonsmoker Start:29-Dec-2021 Instruction Type:Patient Education Patient Instructions Indication:BMI 24.0-24.9, adult Start:30-Nov-2021 Instruction Type:Provider Instructions for Treatment How to Access Health Informa tion Online using Patient Portal and [employer] Indication:BMI 24.0-24.9, adult Start:30-Nov-2021 Instruction Type:Patient Education Patient Instructions Indication:BMI 24.0-24.9, adult Start:04-Nov-2021 Instruction Type:Provider Instructions for Treatment How to Access Health Informa tion Online using Patient Portal and [employer] Apps Indication:BMI 24.0-24.9, adult Start:04-Nov-2021 Instruction Type:Patient Education Patient Instructions Indication:Night sweats Start:06-Jul-2021 Instruction Type:Provider Instructions for Treatment How to Access Health Informa tion Online using Patient Portal and [employer] Apps Indication:Night sweats Start:06-Jul-2021 Instruction Type:Patient Education Patient Instructions Indication:[facility] EX[facility] Start:10-Jun-2021 Instruction Type:Provider Instructions for Treatment How to Access Health Informa tion Online using Patient Portal and [employer] Indication:[facility] EX[facility] Start:10-Jun-2021 Instruction Type:Patient Education Patient Instructions Indication:Nonsmoker Start:01-Jun-2021 Instruction Type:Provider Instructions for Treatment How to Access Health Informa tion Online using Patient Portal and [employer] Indication:Nonsmoker Start:01-Jun-2021 Instruction Type:Patient Education Patient Instructions Indication:Hypertension Start:06-Feb-2021 Instruction Type:Provider Instructions for Treatment How to Access Health Informa tion Online using Patient Portal and [employer] Indication:Hypertension Start:06-Feb-2021 Instruction Type:Patient Education Patient Instructions Indication:Other and unspecified hyperlipidemia Start:28-Apr-2020 Instruction Type:Provider Instructions for Treatment How to Access Health Informa tion Online using Patient Portal and [employer] Indication:Other and unspecified hyperlipidemia Start:28-Apr-2020 Instruction Type:Patient Education How to access health informa tion online Indication:Neuropathy Start:18-Mar-2020 Instruction Type:Patient Education How to access health informa tion online Indication:Neuropathy Start:18-Mar-2020 Instruction Type:Patient Education Patient Instructions Indication:Neuropathy Start:18-Mar-2020 Instruction Type:Provider Instructions for Treatment How to access health informa tion online Indication:Skin tear of right upper extremity Start:02-Jan-2020 Instruction Type:Patient Education How to access health informa tion online - Detail Indication:Skin tear of right upper extremity Start:02-Jan-2020 Instruction Type:Patient Education Patient Instructions Indication:Skin tear of right upper extremity Start:02-Jan-2020 Instruction Type:Provider Instructions for Treatment How to access health informa tion online Indication:BMI 25.0-25.9,adult Start:24-Oct-2019 Instruction Type:Patient Education How to access health informa tion online - Detail Indication:BMI 25.0-25.9,adult Start:24-Oct-2019 Instruction Type:Patient Education Patient Instructions Indication:BMI 25.0-25.9,adult Start:24-Oct-2019 Instruction Type:Provider Instructions for Treatment How to access health informa tion online Indication:Nonsmoker Start:17-Jul-2019 Instruction Type:Patient Education How to access health informa tion online - Detail Indication:Nonsmoker Start:17-Jul-2019 Instruction Type:Patient Education Patient Instructions Indication:Nonsmoker Start:17-Jul-2019 Instruction Type:Provider Instructions for Treatment How to access health informa tion online Indication:Joint pain Start:10-Jul-2019 Instruction Type:Patient Education How to access health informa tion online - Detail Indication:Joint pain Start:10-Jul-2019 Instruction Type:Patient Education Patient Instructions Indication:Joint pain Start:10-Jul-2019 Instruction Type:Provider Instructions for Treatment How to access health informa tion online Indication:Sore throat Start:10-Nov-2015 Instruction Type:Patient Education How to access health informa tion online - Detail Indication:Sore throat Start:10-Nov-2015 Instruction Type:Patient Education Patient Instructions Indication:Sore throat Start:10-Nov-2015 Instruction Type:Provider Instructions for Treatment How to access health informa tion online Indication:PRE-OPERATIVE EXAMINATION, UNSPECIFIED Start:07-Mar-2015 Instruction Type:Patient Education How to access health informa tion online - Detail Indication:PRE-OPERATIVE EXAMINATION, UNSPECIFIED Start:07-Mar-2015 Instruction Type:Patient Education Patient Instructions Indication:PRE-OPERATIVE EXAMINATION, UNSPECIFIED Start:07-Mar-2015 Instruction Type:Provider Instructions for Treatment Patient Instructions Indication:Hypertension Start:08-Jul-2014 Instruction Type:Provider Instructions for Treatment How to access health informa tion online Indication:Other and unspecified hyperlipidemia Start:19-Nov-2013 Instruction Type:Patient Education How to access health informa tion online - Detail Indication:Other and unspecified hyperlipidemia Start:19-Nov-2013 Instruction Type:Patient Education Patient Instructions Indication:GERD (gastroesophageal reflux disease) Start:19-Nov-2013 Instruction Type:Provider Instructions for Treatment Patient Instructions Indication:Impaired Fasting Glucose Start:25-Apr-2013 Instruction Type:Provider Instructions for Treatment Patient Instructions Indication:Hypertension Start:14-Aug-2012 Instruction Type:Provider Instructions for Treatment Patient Instructions Indication:Impaired Fasting Glucose Start:03-Apr-2012 Instruction Type:Provider Instructions for Treatment [facility]; [facility] Work Phone: Instructions* Name Dates Details Patient Instructions Indication:Fever Start:23-Apr-2022 Instruction Type:Provider Instructions for Treatment How to Access Health Informa tion Online using Patient Portal and [employer] Indication:Fever Start:23-Apr-2022 Instruction Type:Patient Education Patient Instructions Indication:Hypertension Start:15-Mar-2022 Instruction Type:Provider Instructions for Treatment How to Access Health Informa tion Online using Patient Portal and [employer] Indication:Hypertension Start:15-Mar-2022 Instruction Type:Patient Education Patient Instructions Indication:Sore throat Start:03-Mar-2022 Instruction Type:Provider Instructions for Treatment How to Access Health Informa tion Online using Patient Portal and [employer] Indication:Sore throat Start:03-Mar-2022 Instruction Type:Patient Education Patient Instructions Indication:Osteopenia Start:19-Jan-2022 Instruction Type:Provider Instructions for Treatment How to Access Health Informa tion Online using Patient Portal and [employer] Apps Indication:Osteopenia Start:19-Jan-2022 Instruction Type:Patient Education Patient Instructions Indication:Nonsmoker Start:29-Dec-2021 Instruction Type:Provider Instructions for Treatment How to Access Health Informa tion Online using Patient Portal and [employer] Apps Indication:Nonsmoker Start:29-Dec-2021 Instruction Type:Patient Education Patient Instructions Indication:BMI 24.0-24.9, adult Start:30-Nov-2021 Instruction Type:Provider Instructions for Treatment How to Access Health Informa tion Online using Patient Portal and [employer] Indication:BMI 24.0-24.9, adult Start:30-Nov-2021 Instruction Type:Patient Education Patient Instructions Indication:BMI 24.0-24.9, adult Start:04-Nov-2021 Instruction Type:Provider Instructions for Treatment How to Access Health Informa tion Online using Patient Portal and [employer] Indication:BMI 24.0-24.9, adult Start:04-Nov-2021 Instruction Type:Patient Education Patient Instructions Indication:Night sweats Start:06-Jul-2021 Instruction Type:Provider Instructions for Treatment How to Access Health Informa tion Online using Patient Portal and [employer] Indication:Night sweats Start:06-Jul-2021 Instruction Type:Patient Education Patient Instructions Indication:[facility] EX[facility] Start:10-Jun-2021 Instruction Type:Provider Instructions for Treatment How to Access Health Informa tion Online using Patient Portal and [employer] Indication:[facility] EX[facility] Start:10-Jun-2021 Instruction Type:Patient Education Patient Instructions Indication:Nonsmoker Start:01-Jun-2021 Instruction Type:Provider Instructions for Treatment How to Access Health Informa tion Online using Patient Portal and [employer] Indication:Nonsmoker Start:01-Jun-2021 Instruction Type:Patient Education Patient Instructions Indication:Hypertension Start:06-Feb-2021 Instruction Type:Provider Instructions for Treatment How to Access Health Informa tion Online using Patient Portal and [employer] Indication:Hypertension Start:06-Feb-2021 Instruction Type:Patient Education Patient Instructions Indication:Other and unspecified hyperlipidemia Start:28-Apr-2020 Instruction Type:Provider Instructions for Treatment How to Access Health Informa tion Online using Patient Portal and [employer] Indication:Other and unspecified hyperlipidemia Start:28-Apr-2020 Instruction Type:Patient Education How to access health informa tion online Indication:Neuropathy Start:18-Mar-2020 Instruction Type:Patient Education How to access health informa tion online Indication:Neuropathy Start:18-Mar-2020 Instruction Type:Patient Education Patient Instructions Indication:Neuropathy Start:18-Mar-2020 Instruction Type:Provider Instructions for Treatment How to access health informa tion online Indication:Skin tear of right upper extremity Start:02-Jan-2020 Instruction Type:Patient Education How to access health informa tion online - Detail Indication:Skin tear of right upper extremity Start:02-Jan-2020 Instruction Type:Patient Education Patient Instructions Indication:Skin tear of right upper extremity Start:02-Jan-2020 Instruction Type:Provider Instructions for Treatment How to access health informa tion online Indication:BMI 25.0-25.9,adult Start:24-Oct-2019 Instruction Type:Patient Education How to access health informa tion online - Detail Indication:BMI 25.0-25.9,adult Start:24-Oct-2019 Instruction Type:Patient Education Patient Instructions Indication:BMI 25.0-25.9,adult Start:24-Oct-2019 Instruction Type:Provider Instructions for Treatment How to access health informa tion online Indication:Nonsmoker Start:17-Jul-2019 Instruction Type:Patient Education How to access health informa tion online - Detail Indication:Nonsmoker Start:17-Jul-2019 Instruction Type:Patient Education Patient Instructions Indication:Nonsmoker Start:17-Jul-2019 Instruction Type:Provider Instructions for Treatment How to access health informa tion online Indication:Joint pain Start:10-Jul-2019 Instruction Type:Patient Education How to access health informa tion online - Detail Indication:Joint pain Start:10-Jul-2019 Instruction Type:Patient Education Patient Instructions Indication:Joint pain Start:10-Jul-2019 Instruction Type:Provider Instructions for Treatment How to access health informa tion online Indication:Sore throat Start:10-Nov-2015 Instruction Type:Patient Education How to access health informa tion online - Detail Indication:Sore throat Start:10-Nov-2015 Instruction Type:Patient Education Patient Instructions Indication:Sore throat Start:10-Nov-2015 Instruction Type:Provider Instructions for Treatment How to access health informa tion online Indication:PRE-OPERATIVE EXAMINATION, UNSPECIFIED Start:07-Mar-2015 Instruction Type:Patient Education How to access health informa tion online - Detail Indication:PRE-OPERATIVE EXAMINATION, UNSPECIFIED Start:07-Mar-2015 Instruction Type:Patient Education Patient Instructions Indication:PRE-OPERATIVE EXAMINATION, UNSPECIFIED Start:07-Mar-2015 Instruction Type:Provider Instructions for Treatment Patient Instructions Indication:Hypertension Start:08-Jul-2014 Instruction Type:Provider Instructions for Treatment How to access health informa tion online Indication:Other and unspecified hyperlipidemia Start:19-Nov-2013 Instruction Type:Patient Education How to access health informa tion online - Detail Indication:Other and unspecified hyperlipidemia Start:19-Nov-2013 Instruction Type:Patient Education Patient Instructions Indication:GERD (gastroesophageal reflux disease) Start:19-Nov-2013 Instruction Type:Provider Instructions for Treatment Patient Instructions Indication:Impaired Fasting Glucose Start:25-Apr-2013 Instruction Type:Provider Instructions for Treatment Patient Instructions Indication:Hypertension Start:14-Aug-2012 Instruction Type:Provider Instructions for Treatment Patient Instructions Indication:Impaired Fasting Glucose Start:03-Apr-2012 Instruction Type:Provider Instructions for Treatment [facility]; [facility] Work Phone: Instructions* Name Dates Details Patient Instructions Indication:Fever Start:23-Apr-2022 Instruction Type:Provider Instructions for Treatment How to Access Health Informa tion Online using Patient Portal and [employer]rd [employer] Apps Indication:Fever Start:23-Apr-2022 Instruction Type:Patient Education Patient Instructions Indication:Hypertension Start:15-Mar-2022 Instruction Type:Provider Instructions for Treatment How to Access Health Informa tion Online using Patient Portal and [employer]rd [employer] Apps Indication:Hypertension Start:15-Mar-2022 Instruction Type:Patient Education Patient Instructions Indication:Sore throat Start:03-Mar-2022 Instruction Type:Provider Instructions for Treatment How to Access Health Informa tion Online using Patient Portal and [employer]rd [employer] Apps Indication:Sore throat Start:03-Mar-2022 Instruction Type:Patient Education Patient Instructions Indication:Osteopenia Start:19-Jan-2022 Instruction Type:Provider Instructions for Treatment How to Access Health Informa tion Online using Patient Portal and [employer]rd [employer] Apps Indication:Osteopenia Start:19-Jan-2022 Instruction Type:Patient Education Patient Instructions Indication:Nonsmoker Start:29-Dec-2021 Instruction Type:Provider Instructions for Treatment How to Access Health Informa tion Online using Patient Portal and [employer]rd [employer] Apps Indication:Nonsmoker Start:29-Dec-2021 Instruction Type:Patient Education Patient Instructions Indication:BMI 24.0-24.9, adult Start:30-Nov-2021 Instruction Type:Provider Instructions for Treatment How to Access Health Informa tion Online using Patient Portal and [employer]rd [employer] Apps Indication:BMI 24.0-24.9, adult Start:30-Nov-2021 Instruction Type:Patient Education Patient Instructions Indication:BMI 24.0-24.9, adult Start:04-Nov-2021 Instruction Type:Provider Instructions for Treatment How to Access Health Informa tion Online using Patient Portal and [employer]rd [employer] Apps Indication:BMI 24.0-24.9, adult Start:04-Nov-2021 Instruction Type:Patient Education Patient Instructions Indication:Night sweats Start:06-Jul-2021 Instruction Type:Provider Instructions for Treatment How to Access Health Informa tion Online using Patient Portal and [employer]rd [employer] Apps Indication:Night sweats Start:06-Jul-2021 Instruction Type:Patient Education Patient Instructions Indication:[facility] EXAM Start:10-Jun-2021 Instruction Type:Provider Instructions for Treatment How to Access Health Informa tion Online using Patient Portal and [employer]rd [employer] Apps Indication:[facility] EX[facility] Start:10-Jun-2021 Instruction Type:Patient Education Patient Instructions Indication:Nonsmoker Start:01-Jun-2021 Instruction Type:Provider Instructions for Treatment How to Access Health Informa tion Online using Patient Portal and [employer]rd [employer] Apps Indication:Nonsmoker Start:01-Jun-2021 Instruction Type:Patient Education Patient Instructions Indication:Hypertension Start:06-Feb-2021 Instruction Type:Provider Instructions for Treatment How to Access Health Informa tion Online using Patient Portal and [employer]rd [employer] Apps Indication:Hypertension Start:06-Feb-2021 Instruction Type:Patient Education Patient Instructions Indication:Other and unspecified hyperlipidemia Start:28-Apr-2020 Instruction Type:Provider Instructions for Treatment How to Access Health Informa tion Online using Patient Portal and [employer]rd [employer] Apps Indication:Other and unspecified hyperlipidemia Start:28-Apr-2020 Instruction Type:Patient Education How to access health informa tion online Indication:Neuropathy Start:18-Mar-2020 Instruction Type:Patient Education How to access health informa tion online Indication:Neuropathy Start:18-Mar-2020 Instruction Type:Patient Education Patient Instructions Indication:Neuropathy Start:18-Mar-2020 Instruction Type:Provider Instructions for Treatment How to access health informa tion online Indication:Skin tear of right upper extremity Start:02-Jan-2020 Instruction Type:Patient Education How to access health informa tion online - Detail Indication:Skin tear of right upper extremity Start:02-Jan-2020 Instruction Type:Patient Education Patient Instructions Indication:Skin tear of right upper extremity Start:02-Jan-2020 Instruction Type:Provider Instructions for Treatment How to access health informa tion online Indication:BMI 25.0-25.9,adult Start:24-Oct-2019 Instruction Type:Patient Education How to access health informa tion online - Detail Indication:BMI 25.0-25.9,adult Start:24-Oct-2019 Instruction Type:Patient Education Patient Instructions Indication:BMI 25.0-25.9,adult Start:24-Oct-2019 Instruction Type:Provider Instructions for Treatment How to access health informa tion online Indication:Nonsmoker Start:17-Jul-2019 Instruction Type:Patient Education How to access health informa tion online - Detail Indication:Nonsmoker Start:17-Jul-2019 Instruction Type:Patient Education Patient Instructions Indication:Nonsmoker Start:17-Jul-2019 Instruction Type:Provider Instructions for Treatment How to access health informa tion online Indication:Joint pain Start:10-Jul-2019 Instruction Type:Patient Education How to access health informa tion online - Detail Indication:Joint pain Start:10-Jul-2019 Instruction Type:Patient Education Patient Instructions Indication:Joint pain Start:10-Jul-2019 Instruction Type:Provider Instructions for Treatment How to access health informa tion online Indication:Sore throat Start:10-Nov-2015 Instruction Type:Patient Education How to access health informa tion online - Detail Indication:Sore throat Start:10-Nov-2015 Instruction Type:Patient Education Patient Instructions Indication:Sore throat Start:10-Nov-2015 Instruction Type:Provider Instructions for Treatment How to access health informa tion online Indication:PRE-OPERATIVE EXAMINATION, UNSPECIFIED Start:07-Mar-2015 Instruction Type:Patient Education How to access health informa tion online - Detail Indication:PRE-OPERATIVE EXAMINATION, UNSPECIFIED Start:07-Mar-2015 Instruction Type:Patient Education Patient Instructions Indication:PRE-OPERATIVE EXAMINATION, UNSPECIFIED Start:07-Mar-2015 Instruction Type:Provider Instructions for Treatment Patient Instructions Indication:Hypertension Start:08-Jul-2014 Instruction Type:Provider Instructions for Treatment How to access health informa tion online Indication:Other and unspecified hyperlipidemia Start:19-Nov-2013 Instruction Type:Patient Education How to access health informa tion online - Detail Indication:Other and unspecified hyperlipidemia Start:19-Nov-2013 Instruction Type:Patient Education Patient Instructions Indication:GERD (gastroesophageal reflux disease) Start:19-Nov-2013 Instruction Type:Provider Instructions for Treatment Patient Instructions Indication:Impaired Fasting Glucose Start:25-Apr-2013 Instruction Type:Provider Instructions for Treatment Patient Instructions Indication:Hypertension Start:14-Aug-2012 Instruction Type:Provider Instructions for Treatment Patient Instructions Indication:Impaired Fasting Glucose Start:03-Apr-2012 Instruction Type:Provider Instructions for Treatment [facility]; [facility] Work Phone: Instructions* Name Dates Details Patient Instructions Indication:Fever Start:23-Apr-2022 Instruction Type:Provider Instructions for Treatment How to Access Health Informa tion Online using Patient Portal and [employer]rd [employer] Apps Indication:Fever Start:23-Apr-2022 Instruction Type:Patient Education Patient Instructions Indication:Hypertension Start:15-Mar-2022 Instruction Type:Provider Instructions for Treatment How to Access Health Informa tion Online using Patient Portal and [employer] Apps Indication:Hypertension Start:15-Mar-2022 Instruction Type:Patient Education Patient Instructions Indication:Sore throat Start:03-Mar-2022 Instruction Type:Provider Instructions for Treatment How to Access Health Informa tion Online using Patient Portal and [employer]rd [employer] Apps Indication:Sore throat Start:03-Mar-2022 Instruction Type:Patient Education Patient Instructions Indication:Osteopenia Start:19-Jan-2022 Instruction Type:Provider Instructions for Treatment How to Access Health Informa tion Online using Patient Portal and [employer]rd [employer] Apps Indication:Osteopenia Start:19-Jan-2022 Instruction Type:Patient Education Patient Instructions Indication:Nonsmoker Start:29-Dec-2021 Instruction Type:Provider Instructions for Treatment How to Access Health Informa tion Online using Patient Portal and [employer]rd [employer] Apps Indication:Nonsmoker Start:29-Dec-2021 Instruction Type:Patient Education Patient Instructions Indication:BMI 24.0-24.9, adult Start:30-Nov-2021 Instruction Type:Provider Instructions for Treatment How to Access Health Informa tion Online using Patient Portal and [employer] Apps Indication:BMI 24.0-24.9, adult Start:30-Nov-2021 Instruction Type:Patient Education Patient Instructions Indication:BMI 24.0-24.9, adult Start:04-Nov-2021 Instruction Type:Provider Instructions for Treatment How to Access Health Informa tion Online using Patient Portal and [employer]rd [employer] Apps Indication:BMI 24.0-24.9, adult Start:04-Nov-2021 Instruction Type:Patient Education Patient Instructions Indication:Night sweats Start:06-Jul-2021 Instruction Type:Provider Instructions for Treatment How to Access Health Informa tion Online using Patient Portal and [employer] Apps Indication:Night sweats Start:06-Jul-2021 Instruction Type:Patient Education Patient Instructions Indication:[facility] EX[facility] Start:10-Jun-2021 Instruction Type:Provider Instructions for Treatment How to Access Health Informa tion Online using Patient Portal and [employer]rd [employer] Apps Indication:[facility] EX[facility] Start:10-Jun-2021 Instruction Type:Patient Education Patient Instructions Indication:Nonsmoker Start:01-Jun-2021 Instruction Type:Provider Instructions for Treatment How to Access Health Informa tion Online using Patient Portal and [employer] Apps Indication:Nonsmoker Start:01-Jun-2021 Instruction Type:Patient Education Patient Instructions Indication:Hypertension Start:06-Feb-2021 Instruction Type:Provider Instructions for Treatment How to Access Health Informa tion Online using Patient Portal and [employer] Apps Indication:Hypertension Start:06-Feb-2021 Instruction Type:Patient Education Patient Instructions Indication:Other and unspecified hyperlipidemia Start:28-Apr-2020 Instruction Type:Provider Instructions for Treatment How to Access Health Informa tion Online using Patient Portal and [employer] Apps Indication:Other and unspecified hyperlipidemia Start:28-Apr-2020 Instruction Type:Patient Education How to access health informa tion online Indication:Neuropathy Start:18-Mar-2020 Instruction Type:Patient Education How to access health informa tion online Indication:Neuropathy Start:18-Mar-2020 Instruction Type:Patient Education Patient Instructions Indication:Neuropathy Start:18-Mar-2020 Instruction Type:Provider Instructions for Treatment How to access health informa tion online Indication:Skin tear of right upper extremity Start:02-Jan-2020 Instruction Type:Patient Education How to access health informa tion online - Detail Indication:Skin tear of right upper extremity Start:02-Jan-2020 Instruction Type:Patient Education Patient Instructions Indication:Skin tear of right upper extremity Start:02-Jan-2020 Instruction Type:Provider Instructions for Treatment How to access health informa tion online Indication:BMI 25.0-25.9,adult Start:24-Oct-2019 Instruction Type:Patient Education How to access health informa tion online - Detail Indication:BMI 25.0-25.9,adult Start:24-Oct-2019 Instruction Type:Patient Education Patient Instructions Indication:BMI 25.0-25.9,adult Start:24-Oct-2019 Instruction Type:Provider Instructions for Treatment How to access health informa tion online Indication:Nonsmoker Start:17-Jul-2019 Instruction Type:Patient Education How to access health informa tion online - Detail Indication:Nonsmoker Start:17-Jul-2019 Instruction Type:Patient Education Patient Instructions Indication:Nonsmoker Start:17-Jul-2019 Instruction Type:Provider Instructions for Treatment How to access health informa tion online Indication:Joint pain Start:10-Jul-2019 Instruction Type:Patient Education How to access health informa tion online - Detail Indication:Joint pain Start:10-Jul-2019 Instruction Type:Patient Education Patient Instructions Indication:Joint pain Start:10-Jul-2019 Instruction Type:Provider Instructions for Treatment How to access health informa tion online Indication:Sore throat Start:10-Nov-2015 Instruction Type:Patient Education How to access health informa tion online - Detail Indication:Sore throat Start:10-Nov-2015 Instruction Type:Patient Education Patient Instructions Indication:Sore throat Start:10-Nov-2015 Instruction Type:Provider Instructions for Treatment How to access health informa tion online Indication:PRE-OPERATIVE EXAMINATION, UNSPECIFIED Start:07-Mar-2015 Instruction Type:Patient Education How to access health informa tion online - Detail Indication:PRE-OPERATIVE EXAMINATION, UNSPECIFIED Start:07-Mar-2015 Instruction Type:Patient Education Patient Instructions Indication:PRE-OPERATIVE EXAMINATION, UNSPECIFIED Start:07-Mar-2015 Instruction Type:Provider Instructions for Treatment Patient Instructions Indication:Hypertension Start:08-Jul-2014 Instruction Type:Provider Instructions for Treatment How to access health informa tion online Indication:Other and unspecified hyperlipidemia Start:19-Nov-2013 Instruction Type:Patient Education How to access health informa tion online - Detail Indication:Other and unspecified hyperlipidemia Start:19-Nov-2013 Instruction Type:Patient Education Patient Instructions Indication:GERD (gastroesophageal reflux disease) Start:19-Nov-2013 Instruction Type:Provider Instructions for Treatment Patient Instructions Indication:Impaired Fasting Glucose Start:25-Apr-2013 Instruction Type:Provider Instructions for Treatment Patient Instructions Indication:Hypertension Start:14-Aug-2012 Instruction Type:Provider Instructions for Treatment Patient Instructions Indication:Impaired Fasting Glucose Start:03-Apr-2012 Instruction Type:Provider Instructions for Treatment [facility]; [facility] Work Phone: Instructions* Name Dates Details Patient Instructions Indication:Fever Start:23-Apr-2022 Instruction Type:Provider Instructions for Treatment How to Access Health Informa tion Online using Patient Portal and [employer]rd [employer] Apps Indication:Fever Start:23-Apr-2022 Instruction Type:Patient Education Patient Instructions Indication:Hypertension Start:15-Mar-2022 Instruction Type:Provider Instructions for Treatment How to Access Health Informa tion Online using Patient Portal and [employer]rd [employer] Apps Indication:Hypertension Start:15-Mar-2022 Instruction Type:Patient Education Patient Instructions Indication:Sore throat Start:03-Mar-2022 Instruction Type:Provider Instructions for Treatment How to Access Health Informa tion Online using Patient Portal and [employer]rd [employer] Apps Indication:Sore throat Start:03-Mar-2022 Instruction Type:Patient Education Patient Instructions Indication:Osteopenia Start:19-Jan-2022 Instruction Type:Provider Instructions for Treatment How to Access Health Informa tion Online using Patient Portal and [employer]rd [employer] Apps Indication:Osteopenia Start:19-Jan-2022 Instruction Type:Patient Education Patient Instructions Indication:Nonsmoker Start:29-Dec-2021 Instruction Type:Provider Instructions for Treatment How to Access Health Informa tion Online using Patient Portal and [employer]rd [employer] Apps Indication:Nonsmoker Start:29-Dec-2021 Instruction Type:Patient Education Patient Instructions Indication:BMI 24.0-24.9, adult Start:30-Nov-2021 Instruction Type:Provider Instructions for Treatment How to Access Health Informa tion Online using Patient Portal and [employer]rd [employer] Apps Indication:BMI 24.0-24.9, adult Start:30-Nov-2021 Instruction Type:Patient Education Patient Instructions Indication:BMI 24.0-24.9, adult Start:04-Nov-2021 Instruction Type:Provider Instructions for Treatment How to Access Health Informa tion Online using Patient Portal and [employer]rd [employer] Apps Indication:BMI 24.0-24.9, adult Start:04-Nov-2021 Instruction Type:Patient Education Patient Instructions Indication:Night sweats Start:06-Jul-2021 Instruction Type:Provider Instructions for Treatment How to Access Health Informa tion Online using Patient Portal and [employer]rd [employer] Apps Indication:Night sweats Start:06-Jul-2021 Instruction Type:Patient Education Patient Instructions Indication:[facility] EX[facility] Start:10-Jun-2021 Instruction Type:Provider Instructions for Treatment How to Access Health Informa tion Online using Patient Portal and [employer]rd [employer] Apps Indication:[facility] EX[facility] Start:10-Jun-2021 Instruction Type:Patient Education Patient Instructions Indication:Nonsmoker Start:01-Jun-2021 Instruction Type:Provider Instructions for Treatment How to Access Health Informa tion Online using Patient Portal and [employer]rd [employer] Apps Indication:Nonsmoker Start:01-Jun-2021 Instruction Type:Patient Education Patient Instructions Indication:Hypertension Start:06-Feb-2021 Instruction Type:Provider Instructions for Treatment How to Access Health Informa tion Online using Patient Portal and [employer]rd [employer] Apps Indication:Hypertension Start:06-Feb-2021 Instruction Type:Patient Education Patient Instructions Indication:Other and unspecified hyperlipidemia Start:28-Apr-2020 Instruction Type:Provider Instructions for Treatment How to Access Health Informa tion Online using Patient Portal and [employer]rd [employer] Apps Indication:Other and unspecified hyperlipidemia Start:28-Apr-2020 Instruction Type:Patient Education How to access health informa tion online Indication:Neuropathy Start:18-Mar-2020 Instruction Type:Patient Education How to access health informa tion online Indication:Neuropathy Start:18-Mar-2020 Instruction Type:Patient Education Patient Instructions Indication:Neuropathy Start:18-Mar-2020 Instruction Type:Provider Instructions for Treatment How to access health informa tion online Indication:Skin tear of right upper extremity Start:02-Jan-2020 Instruction Type:Patient Education How to access health informa tion online - Detail Indication:Skin tear of right upper extremity Start:02-Jan-2020 Instruction Type:Patient Education Patient Instructions Indication:Skin tear of right upper extremity Start:02-Jan-2020 Instruction Type:Provider Instructions for Treatment How to access health informa tion online Indication:BMI 25.0-25.9,adult Start:24-Oct-2019 Instruction Type:Patient Education How to access health informa tion online - Detail Indication:BMI 25.0-25.9,adult Start:24-Oct-2019 Instruction Type:Patient Education Patient Instructions Indication:BMI 25.0-25.9,adult Start:24-Oct-2019 Instruction Type:Provider Instructions for Treatment How to access health informa tion online Indication:Nonsmoker Start:17-Jul-2019 Instruction Type:Patient Education How to access health informa tion online - Detail Indication:Nonsmoker Start:17-Jul-2019 Instruction Type:Patient Education Patient Instructions Indication:Nonsmoker Start:17-Jul-2019 Instruction Type:Provider Instructions for Treatment How to access health informa tion online Indication:Joint pain Start:10-Jul-2019 Instruction Type:Patient Education How to access health informa tion online - Detail Indication:Joint pain Start:10-Jul-2019 Instruction Type:Patient Education Patient Instructions Indication:Joint pain Start:10-Jul-2019 Instruction Type:Provider Instructions for Treatment How to access health informa tion online Indication:Sore throat Start:10-Nov-2015 Instruction Type:Patient Education How to access health informa tion online - Detail Indication:Sore throat Start:10-Nov-2015 Instruction Type:Patient Education Patient Instructions Indication:Sore throat Start:10-Nov-2015 Instruction Type:Provider Instructions for Treatment How to access health informa tion online Indication:PRE-OPERATIVE EXAMINATION, UNSPECIFIED Start:07-Mar-2015 Instruction Type:Patient Education How to access health informa tion online - Detail Indication:PRE-OPERATIVE EXAMINATION, UNSPECIFIED Start:07-Mar-2015 Instruction Type:Patient Education Patient Instructions Indication:PRE-OPERATIVE EXAMINATION, UNSPECIFIED Start:07-Mar-2015 Instruction Type:Provider Instructions for Treatment Patient Instructions Indication:Hypertension Start:08-Jul-2014 Instruction Type:Provider Instructions for Treatment How to access health informa tion online Indication:Other and unspecified hyperlipidemia Start:19-Nov-2013 Instruction Type:Patient Education How to access health informa tion online - Detail Indication:Other and unspecified hyperlipidemia Start:19-Nov-2013 Instruction Type:Patient Education Patient Instructions Indication:GERD (gastroesophageal reflux disease) Start:19-Nov-2013 Instruction Type:Provider Instructions for Treatment Patient Instructions Indication:Impaired Fasting Glucose Start:25-Apr-2013 Instruction Type:Provider Instructions for Treatment Patient Instructions Indication:Hypertension Start:14-Aug-2012 Instruction Type:Provider Instructions for Treatment Patient Instructions Indication:Impaired Fasting Glucose Start:03-Apr-2012 Instruction Type:Provider Instructions for Treatment [facility]; [facility] Work Phone: Instructions* Name Dates Details Patient Instructions Indication:Fever Start:23-Apr-2022 Instruction Type:Provider Instructions for Treatment How to Access Health Informa tion Online using Patient Portal and [employer] Indication:Fever Start:23-Apr-2022 Instruction Type:Patient Education Patient Instructions Indication:Hypertension Start:15-Mar-2022 Instruction Type:Provider Instructions for Treatment How to Access Health Informa tion Online using Patient Portal and [employer] Apps Indication:Hypertension Start:15-Mar-2022 Instruction Type:Patient Education Patient Instructions Indication:Sore throat Start:03-Mar-2022 Instruction Type:Provider Instructions for Treatment How to Access Health Informa tion Online using Patient Portal and [employer] Indication:Sore throat Start:03-Mar-2022 Instruction Type:Patient Education Patient Instructions Indication:Osteopenia Start:19-Jan-2022 Instruction Type:Provider Instructions for Treatment How to Access Health Informa tion Online using Patient Portal and [employer] Indication:Osteopenia Start:19-Jan-2022 Instruction Type:Patient Education Patient Instructions Indication:Nonsmoker Start:29-Dec-2021 Instruction Type:Provider Instructions for Treatment How to Access Health Informa tion Online using Patient Portal and [employer] Indication:Nonsmoker Start:29-Dec-2021 Instruction Type:Patient Education Patient Instructions Indication:BMI 24.0-24.9, adult Start:30-Nov-2021 Instruction Type:Provider Instructions for Treatment How to Access Health Informa tion Online using Patient Portal and [employer] Indication:BMI 24.0-24.9, adult Start:30-Nov-2021 Instruction Type:Patient Education Patient Instructions Indication:BMI 24.0-24.9, adult Start:04-Nov-2021 Instruction Type:Provider Instructions for Treatment How to Access Health Informa tion Online using Patient Portal and [employer] Indication:BMI 24.0-24.9, adult Start:04-Nov-2021 Instruction Type:Patient Education Patient Instructions Indication:Night sweats Start:06-Jul-2021 Instruction Type:Provider Instructions for Treatment How to Access Health Informa tion Online using Patient Portal and [employer] Indication:Night sweats Start:06-Jul-2021 Instruction Type:Patient Education Patient Instructions Indication:[facility] EX[facility] Start:10-Jun-2021 Instruction Type:Provider Instructions for Treatment How to Access Health Informa tion Online using Patient Portal and [employer] Indication:[facility] Start:10-Jun-2021 Instruction Type:Patient Education Patient Instructions Indication:Nonsmoker Start:01-Jun-2021 Instruction Type:Provider Instructions for Treatment How to Access Health Informa tion Online using Patient Portal and [employer] Indication:Nonsmoker Start:01-Jun-2021 Instruction Type:Patient Education Patient Instructions Indication:Hypertension Start:06-Feb-2021 Instruction Type:Provider Instructions for Treatment How to Access Health Informa tion Online using Patient Portal and [employer] Indication:Hypertension Start:06-Feb-2021 Instruction Type:Patient Education Patient Instructions Indication:Other and unspecified hyperlipidemia Start:28-Apr-2020 Instruction Type:Provider Instructions for Treatment How to Access Health Informa tion Online using Patient Portal and [employer] Indication:Other and unspecified hyperlipidemia Start:28-Apr-2020 Instruction Type:Patient Education How to access health informa tion online Indication:Neuropathy Start:18-Mar-2020 Instruction Type:Patient Education How to access health informa tion online Indication:Neuropathy Start:18-Mar-2020 Instruction Type:Patient Education Patient Instructions Indication:Neuropathy Start:18-Mar-2020 Instruction Type:Provider Instructions for Treatment How to access health informa tion online Indication:Skin tear of right upper extremity Start:02-Jan-2020 Instruction Type:Patient Education How to access health informa tion online - Detail Indication:Skin tear of right upper extremity Start:02-Jan-2020 Instruction Type:Patient Education Patient Instructions Indication:Skin tear of right upper extremity Start:02-Jan-2020 Instruction Type:Provider Instructions for Treatment How to access health informa tion online Indication:BMI 25.0-25.9,adult Start:24-Oct-2019 Instruction Type:Patient Education How to access health informa tion online - Detail Indication:BMI 25.0-25.9,adult Start:24-Oct-2019 Instruction Type:Patient Education Patient Instructions Indication:BMI 25.0-25.9,adult Start:24-Oct-2019 Instruction Type:Provider Instructions for Treatment How to access health informa tion online Indication:Nonsmoker Start:17-Jul-2019 Instruction Type:Patient Education How to access health informa tion online - Detail Indication:Nonsmoker Start:17-Jul-2019 Instruction Type:Patient Education Patient Instructions Indication:Nonsmoker Start:17-Jul-2019 Instruction Type:Provider Instructions for Treatment How to access health informa tion online Indication:Joint pain Start:10-Jul-2019 Instruction Type:Patient Education How to access health informa tion online - Detail Indication:Joint pain Start:10-Jul-2019 Instruction Type:Patient Education Patient Instructions Indication:Joint pain Start:10-Jul-2019 Instruction Type:Provider Instructions for Treatment How to access health informa tion online Indication:Sore throat Start:10-Nov-2015 Instruction Type:Patient Education How to access health informa tion online - Detail Indication:Sore throat Start:10-Nov-2015 Instruction Type:Patient Education Patient Instructions Indication:Sore throat Start:10-Nov-2015 Instruction Type:Provider Instructions for Treatment How to access health informa tion online Indication:PRE-OPERATIVE EXAMINATION, UNSPECIFIED Start:07-Mar-2015 Instruction Type:Patient Education How to access health informa tion online - Detail Indication:PRE-OPERATIVE EXAMINATION, UNSPECIFIED Start:07-Mar-2015 Instruction Type:Patient Education Patient Instructions Indication:PRE-OPERATIVE EXAMINATION, UNSPECIFIED Start:07-Mar-2015 Instruction Type:Provider Instructions for Treatment Patient Instructions Indication:Hypertension Start:08-Jul-2014 Instruction Type:Provider Instructions for Treatment How to access health informa tion online Indication:Other and unspecified hyperlipidemia Start:19-Nov-2013 Instruction Type:Patient Education How to access health informa tion online - Detail Indication:Other and unspecified hyperlipidemia Start:19-Nov-2013 Instruction Type:Patient Education Patient Instructions Indication:GERD (gastroesophageal reflux disease) Start:19-Nov-2013 Instruction Type:Provider Instructions for Treatment Patient Instructions Indication:Impaired Fasting Glucose Start:25-Apr-2013 Instruction Type:Provider Instructions for Treatment Patient Instructions Indication:Hypertension Start:14-Aug-2012 Instruction Type:Provider Instructions for Treatment Patient Instructions Indication:Impaired Fasting Glucose Start:03-Apr-2012 Instruction Type:Provider Instructions for Treatment [facility]; [facility] Work Phone: Instructions* Name Dates Details Patient Instructions Indication:Inflammatory arthritis Start:24-May-2022 Instruction Type:Provider Instructions for Treatment How to Access Health Informa tion Online using Patient Portal and [employer] Indication:Inflammatory arthritis Start:24-May-2022 Instruction Type:Patient Education Patient Instructions Indication:Fever Start:23-Apr-2022 Instruction Type:Provider Instructions for Treatment How to Access Health Informa tion Online using Patient Portal and [employer] Apps Indication:Fever Start:23-Apr-2022 Instruction Type:Patient Education Patient Instructions Indication:Hypertension Start:15-Mar-2022 Instruction Type:Provider Instructions for Treatment How to Access Health Informa tion Online using Patient Portal and [employer] Apps Indication:Hypertension Start:15-Mar-2022 Instruction Type:Patient Education Patient Instructions Indication:Sore throat Start:03-Mar-2022 Instruction Type:Provider Instructions for Treatment How to Access Health Informa tion Online using Patient Portal and [employer] Indication:Sore throat Start:03-Mar-2022 Instruction Type:Patient Education Patient Instructions Indication:Osteopenia Start:19-Jan-2022 Instruction Type:Provider Instructions for Treatment How to Access Health Informa tion Online using Patient Portal and [employer] Indication:Osteopenia Start:19-Jan-2022 Instruction Type:Patient Education Patient Instructions Indication:Nonsmoker Start:29-Dec-2021 Instruction Type:Provider Instructions for Treatment How to Access Health Informa tion Online using Patient Portal and [employer] Indication:Nonsmoker Start:29-Dec-2021 Instruction Type:Patient Education Patient Instructions Indication:BMI 24.0-24.9, adult Start:30-Nov-2021 Instruction Type:Provider Instructions for Treatment How to Access Health Informa tion Online using Patient Portal and [employer] Indication:BMI 24.0-24.9, adult Start:30-Nov-2021 Instruction Type:Patient Education Patient Instructions Indication:BMI 24.0-24.9, adult Start:04-Nov-2021 Instruction Type:Provider Instructions for Treatment How to Access Health Informa tion Online using Patient Portal and [employer] Indication:BMI 24.0-24.9, adult Start:04-Nov-2021 Instruction Type:Patient Education Patient Instructions Indication:Night sweats Start:06-Jul-2021 Instruction Type:Provider Instructions for Treatment How to Access Health Informa tion Online using Patient Portal and [employer] Indication:Night sweats Start:06-Jul-2021 Instruction Type:Patient Education Patient Instructions Indication:[facility] Start:10-Jun-2021 Instruction Type:Provider Instructions for Treatment How to Access Health Informa tion Online using Patient Portal and [employer] Apps Indication:[facility] Start:10-Jun-2021 Instruction Type:Patient Education Patient Instructions Indication:Nonsmoker Start:01-Jun-2021 Instruction Type:Provider Instructions for Treatment How to Access Health Informa tion Online using Patient Portal and [employer] Apps Indication:Nonsmoker Start:01-Jun-2021 Instruction Type:Patient Education Patient Instructions Indication:Hypertension Start:06-Feb-2021 Instruction Type:Provider Instructions for Treatment How to Access Health Informa tion Online using Patient Portal and [employer] Apps Indication:Hypertension Start:06-Feb-2021 Instruction Type:Patient Education Patient Instructions Indication:Other and unspecified hyperlipidemia Start:28-Apr-2020 Instruction Type:Provider Instructions for Treatment How to Access Health Informa tion Online using Patient Portal and [employer] Indication:Other and unspecified hyperlipidemia Start:28-Apr-2020 Instruction Type:Patient Education How to access health informa tion online Indication:Neuropathy Start:18-Mar-2020 Instruction Type:Patient Education How to access health informa tion online Indication:Neuropathy Start:18-Mar-2020 Instruction Type:Patient Education Patient Instructions Indication:Neuropathy Start:18-Mar-2020 Instruction Type:Provider Instructions for Treatment How to access health informa tion online Indication:Skin tear of right upper extremity Start:02-Jan-2020 Instruction Type:Patient Education How to access health informa tion online - Detail Indication:Skin tear of right upper extremity Start:02-Jan-2020 Instruction Type:Patient Education Patient Instructions Indication:Skin tear of right upper extremity Start:02-Jan-2020 Instruction Type:Provider Instructions for Treatment How to access health informa tion online Indication:BMI 25.0-25.9,adult Start:24-Oct-2019 Instruction Type:Patient Education How to access health informa tion online - Detail Indication:BMI 25.0-25.9,adult Start:24-Oct-2019 Instruction Type:Patient Education Patient Instructions Indication:BMI 25.0-25.9,adult Start:24-Oct-2019 Instruction Type:Provider Instructions for Treatment How to access health informa tion online Indication:Nonsmoker Start:17-Jul-2019 Instruction Type:Patient Education How to access health informa tion online - Detail Indication:Nonsmoker Start:17-Jul-2019 Instruction Type:Patient Education Patient Instructions Indication:Nonsmoker Start:17-Jul-2019 Instruction Type:Provider Instructions for Treatment How to access health informa tion online Indication:Joint pain Start:10-Jul-2019 Instruction Type:Patient Education How to access health informa tion online - Detail Indication:Joint pain Start:10-Jul-2019 Instruction Type:Patient Education Patient Instructions Indication:Joint pain Start:10-Jul-2019 Instruction Type:Provider Instructions for Treatment How to access health informa tion online Indication:Sore throat Start:10-Nov-2015 Instruction Type:Patient Education How to access health informa tion online - Detail Indication:Sore throat Start:10-Nov-2015 Instruction Type:Patient Education Patient Instructions Indication:Sore throat Start:10-Nov-2015 Instruction Type:Provider Instructions for Treatment How to access health informa tion online Indication:PRE-OPERATIVE EXAMINATION, UNSPECIFIED Start:07-Mar-2015 Instruction Type:Patient Education How to access health informa tion online - Detail Indication:PRE-OPERATIVE EXAMINATION, UNSPECIFIED Start:07-Mar-2015 Instruction Type:Patient Education Patient Instructions Indication:PRE-OPERATIVE EXAMINATION, UNSPECIFIED Start:07-Mar-2015 Instruction Type:Provider Instructions for Treatment Patient Instructions Indication:Hypertension Start:08-Jul-2014 Instruction Type:Provider Instructions for Treatment How to access health informa tion online Indication:Other and unspecified hyperlipidemia Start:19-Nov-2013 Instruction Type:Patient Education How to access health informa tion online - Detail Indication:Other and unspecified hyperlipidemia Start:19-Nov-2013 Instruction Type:Patient Education Patient Instructions Indication:GERD (gastroesophageal reflux disease) Start:19-Nov-2013 Instruction Type:Provider Instructions for Treatment Patient Instructions Indication:Impaired Fasting Glucose Start:25-Apr-2013 Instruction Type:Provider Instructions for Treatment Patient Instructions Indication:Hypertension Start:14-Aug-2012 Instruction Type:Provider Instructions for Treatment Patient Instructions Indication:Impaired Fasting Glucose Start:03-Apr-2012 Instruction Type:Provider Instructions for Treatment [facility]; [facility] Work Phone: Instructions* Name Dates Details Patient Instructions Indication:Inflammatory arthritis Start:24-May-2022 Instruction Type:Provider Instructions for Treatment How to Access Health Informa tion Online using Patient Portal and [employer] Apps Indication:Inflammatory arthritis Start:24-May-2022 Instruction Type:Patient Education Patient Instructions Indication:Fever Start:23-Apr-2022 Instruction Type:Provider Instructions for Treatment How to Access Health Informa tion Online using Patient Portal and [employer] Apps Indication:Fever Start:23-Apr-2022 Instruction Type:Patient Education Patient Instructions Indication:Hypertension Start:15-Mar-2022 Instruction Type:Provider Instructions for Treatment How to Access Health Informa tion Online using Patient Portal and [employer] Apps Indication:Hypertension Start:15-Mar-2022 Instruction Type:Patient Education Patient Instructions Indication:Sore throat Start:03-Mar-2022 Instruction Type:Provider Instructions for Treatment How to Access Health Informa tion Online using Patient Portal and [employer] Apps Indication:Sore throat Start:03-Mar-2022 Instruction Type:Patient Education Patient Instructions Indication:Osteopenia Start:19-Jan-2022 Instruction Type:Provider Instructions for Treatment How to Access Health Informa tion Online using Patient Portal and [employer] Apps Indication:Osteopenia Start:19-Jan-2022 Instruction Type:Patient Education Patient Instructions Indication:Nonsmoker Start:29-Dec-2021 Instruction Type:Provider Instructions for Treatment How to Access Health Informa tion Online using Patient Portal and [employer] Apps Indication:Nonsmoker Start:29-Dec-2021 Instruction Type:Patient Education Patient Instructions Indication:BMI 24.0-24.9, adult Start:30-Nov-2021 Instruction Type:Provider Instructions for Treatment How to Access Health Informa tion Online using Patient Portal and [employer] Apps Indication:BMI 24.0-24.9, adult Start:30-Nov-2021 Instruction Type:Patient Education Patient Instructions Indication:BMI 24.0-24.9, adult Start:04-Nov-2021 Instruction Type:Provider Instructions for Treatment How to Access Health Informa tion Online using Patient Portal and [employer] Indication:BMI 24.0-24.9, adult Start:04-Nov-2021 Instruction Type:Patient Education Patient Instructions Indication:Night sweats Start:06-Jul-2021 Instruction Type:Provider Instructions for Treatment How to Access Health Informa tion Online using Patient Portal and [employer] Apps Indication:Night sweats Start:06-Jul-2021 Instruction Type:Patient Education Patient Instructions Indication:[facility] Start:10-Jun-2021 Instruction Type:Provider Instructions for Treatment How to Access Health Informa tion Online using Patient Portal and [employer] Apps Indication:[facility] EX[facility] Start:10-Jun-2021 Instruction Type:Patient Education Patient Instructions Indication:Nonsmoker Start:01-Jun-2021 Instruction Type:Provider Instructions for Treatment How to Access Health Informa tion Online using Patient Portal and [employer] Apps Indication:Nonsmoker Start:01-Jun-2021 Instruction Type:Patient Education Patient Instructions Indication:Hypertension Start:06-Feb-2021 Instruction Type:Provider Instructions for Treatment How to Access Health Informa tion Online using Patient Portal and [employer] Indication:Hypertension Start:06-Feb-2021 Instruction Type:Patient Education Patient Instructions Indication:Other and unspecified hyperlipidemia Start:28-Apr-2020 Instruction Type:Provider Instructions for Treatment How to Access Health Informa tion Online using Patient Portal and [employer] Indication:Other and unspecified hyperlipidemia Start:28-Apr-2020 Instruction Type:Patient Education How to access health informa tion online Indication:Neuropathy Start:18-Mar-2020 Instruction Type:Patient Education How to access health informa tion online Indication:Neuropathy Start:18-Mar-2020 Instruction Type:Patient Education Patient Instructions Indication:Neuropathy Start:18-Mar-2020 Instruction Type:Provider Instructions for Treatment How to access health informa tion online Indication:Skin tear of right upper extremity Start:02-Jan-2020 Instruction Type:Patient Education How to access health informa tion online - Detail Indication:Skin tear of right upper extremity Start:02-Jan-2020 Instruction Type:Patient Education Patient Instructions Indication:Skin tear of right upper extremity Start:02-Jan-2020 Instruction Type:Provider Instructions for Treatment How to access health informa tion online Indication:BMI 25.0-25.9,adult Start:24-Oct-2019 Instruction Type:Patient Education How to access health informa tion online - Detail Indication:BMI 25.0-25.9,adult Start:24-Oct-2019 Instruction Type:Patient Education Patient Instructions Indication:BMI 25.0-25.9,adult Start:24-Oct-2019 Instruction Type:Provider Instructions for Treatment How to access health informa tion online Indication:Nonsmoker Start:17-Jul-2019 Instruction Type:Patient Education How to access health informa tion online - Detail Indication:Nonsmoker Start:17-Jul-2019 Instruction Type:Patient Education Patient Instructions Indication:Nonsmoker Start:17-Jul-2019 Instruction Type:Provider Instructions for Treatment How to access health informa tion online Indication:Joint pain Start:10-Jul-2019 Instruction Type:Patient Education How to access health informa tion online - Detail Indication:Joint pain Start:10-Jul-2019 Instruction Type:Patient Education Patient Instructions Indication:Joint pain Start:10-Jul-2019 Instruction Type:Provider Instructions for Treatment How to access health informa tion online Indication:Sore throat Start:10-Nov-2015 Instruction Type:Patient Education How to access health informa tion online - Detail Indication:Sore throat Start:10-Nov-2015 Instruction Type:Patient Education Patient Instructions Indication:Sore throat Start:10-Nov-2015 Instruction Type:Provider Instructions for Treatment How to access health informa tion online Indication:PRE-OPERATIVE EXAMINATION, UNSPECIFIED Start:07-Mar-2015 Instruction Type:Patient Education How to access health informa tion online - Detail Indication:PRE-OPERATIVE EXAMINATION, UNSPECIFIED Start:07-Mar-2015 Instruction Type:Patient Education Patient Instructions Indication:PRE-OPERATIVE EXAMINATION, UNSPECIFIED Start:07-Mar-2015 Instruction Type:Provider Instructions for Treatment Patient Instructions Indication:Hypertension Start:08-Jul-2014 Instruction Type:Provider Instructions for Treatment How to access health informa tion online Indication:Other and unspecified hyperlipidemia Start:19-Nov-2013 Instruction Type:Patient Education How to access health informa tion online - Detail Indication:Other and unspecified hyperlipidemia Start:19-Nov-2013 Instruction Type:Patient Education Patient Instructions Indication:GERD (gastroesophageal reflux disease) Start:19-Nov-2013 Instruction Type:Provider Instructions for Treatment Patient Instructions Indication:Impaired Fasting Glucose Start:25-Apr-2013 Instruction Type:Provider Instructions for Treatment Patient Instructions Indication:Hypertension Start:14-Aug-2012 Instruction Type:Provider Instructions for Treatment Patient Instructions Indication:Impaired Fasting Glucose Start:03-Apr-2012 Instruction Type:Provider Instructions for Treatment [facility]; [facility] Work Phone: Instructions* Name Dates Details Patient Instructions Indication:Inflammatory arthritis Start:24-May-2022 Instruction Type:Provider Instructions for Treatment How to Access Health Informa tion Online using Patient Portal and [employer] Indication:Inflammatory arthritis Start:24-May-2022 Instruction Type:Patient Education Patient Instructions Indication:Fever Start:23-Apr-2022 Instruction Type:Provider Instructions for Treatment How to Access Health Informa tion Online using Patient Portal and [employer] Indication:Fever Start:23-Apr-2022 Instruction Type:Patient Education Patient Instructions Indication:Hypertension Start:15-Mar-2022 Instruction Type:Provider Instructions for Treatment How to Access Health Informa tion Online using Patient Portal and [employer] Indication:Hypertension Start:15-Mar-2022 Instruction Type:Patient Education Patient Instructions Indication:Sore throat Start:03-Mar-2022 Instruction Type:Provider Instructions for Treatment How to Access Health Informa tion Online using Patient Portal and [employer] Indication:Sore throat Start:03-Mar-2022 Instruction Type:Patient Education Patient Instructions Indication:Osteopenia Start:19-Jan-2022 Instruction Type:Provider Instructions for Treatment How to Access Health Informa tion Online using Patient Portal and [employer] Indication:Osteopenia Start:19-Jan-2022 Instruction Type:Patient Education Patient Instructions Indication:Nonsmoker Start:29-Dec-2021 Instruction Type:Provider Instructions for Treatment How to Access Health Informa tion Online using Patient Portal and [employer] Indication:Nonsmoker Start:29-Dec-2021 Instruction Type:Patient Education Patient Instructions Indication:BMI 24.0-24.9, adult Start:30-Nov-2021 Instruction Type:Provider Instructions for Treatment How to Access Health Informa tion Online using Patient Portal and [employer] Indication:BMI 24.0-24.9, adult Start:30-Nov-2021 Instruction Type:Patient Education Patient Instructions Indication:BMI 24.0-24.9, adult Start:04-Nov-2021 Instruction Type:Provider Instructions for Treatment How to Access Health Informa tion Online using Patient Portal and [employer] Indication:BMI 24.0-24.9, adult Start:04-Nov-2021 Instruction Type:Patient Education Patient Instructions Indication:Night sweats Start:06-Jul-2021 Instruction Type:Provider Instructions for Treatment How to Access Health Informa tion Online using Patient Portal and [employer] Apps Indication:Night sweats Start:06-Jul-2021 Instruction Type:Patient Education Patient Instructions Indication:[facility] Start:10-Jun-2021 Instruction Type:Provider Instructions for Treatment How to Access Health Informa tion Online using Patient Portal and [employer] Indication:[facility] EXAM Start:10-Jun-2021 Instruction Type:Patient Education Patient Instructions Indication:Nonsmoker Start:01-Jun-2021 Instruction Type:Provider Instructions for Treatment How to Access Health Informa tion Online using Patient Portal and [employer] Apps Indication:Nonsmoker Start:01-Jun-2021 Instruction Type:Patient Education Patient Instructions Indication:Hypertension Start:06-Feb-2021 Instruction Type:Provider Instructions for Treatment How to Access Health Informa tion Online using Patient Portal and [employer] Apps Indication:Hypertension Start:06-Feb-2021 Instruction Type:Patient Education Patient Instructions Indication:Other and unspecified hyperlipidemia Start:28-Apr-2020 Instruction Type:Provider Instructions for Treatment How to Access Health Informa tion Online using Patient Portal and [employer] Apps Indication:Other and unspecified hyperlipidemia Start:28-Apr-2020 Instruction Type:Patient Education How to access health informa tion online Indication:Neuropathy Start:18-Mar-2020 Instruction Type:Patient Education How to access health informa tion online Indication:Neuropathy Start:18-Mar-2020 Instruction Type:Patient Education Patient Instructions Indication:Neuropathy Start:18-Mar-2020 Instruction Type:Provider Instructions for Treatment How to access health informa tion online Indication:Skin tear of right upper extremity Start:02-Jan-2020 Instruction Type:Patient Education How to access health informa tion online - Detail Indication:Skin tear of right upper extremity Start:02-Jan-2020 Instruction Type:Patient Education Patient Instructions Indication:Skin tear of right upper extremity Start:02-Jan-2020 Instruction Type:Provider Instructions for Treatment How to access health informa tion online Indication:BMI 25.0-25.9,adult Start:24-Oct-2019 Instruction Type:Patient Education How to access health informa tion online - Detail Indication:BMI 25.0-25.9,adult Start:24-Oct-2019 Instruction Type:Patient Education Patient Instructions Indication:BMI 25.0-25.9,adult Start:24-Oct-2019 Instruction Type:Provider Instructions for Treatment How to access health informa tion online Indication:Nonsmoker Start:17-Jul-2019 Instruction Type:Patient Education How to access health informa tion online - Detail Indication:Nonsmoker Start:17-Jul-2019 Instruction Type:Patient Education Patient Instructions Indication:Nonsmoker Start:17-Jul-2019 Instruction Type:Provider Instructions for Treatment How to access health informa tion online Indication:Joint pain Start:10-Jul-2019 Instruction Type:Patient Education How to access health informa tion online - Detail Indication:Joint pain Start:10-Jul-2019 Instruction Type:Patient Education Patient Instructions Indication:Joint pain Start:10-Jul-2019 Instruction Type:Provider Instructions for Treatment How to access health informa tion online Indication:Sore throat Start:10-Nov-2015 Instruction Type:Patient Education How to access health informa tion online - Detail Indication:Sore throat Start:10-Nov-2015 Instruction Type:Patient Education Patient Instructions Indication:Sore throat Start:10-Nov-2015 Instruction Type:Provider Instructions for Treatment How to access health informa tion online Indication:PRE-OPERATIVE EXAMINATION, UNSPECIFIED Start:07-Mar-2015 Instruction Type:Patient Education How to access health informa tion online - Detail Indication:PRE-OPERATIVE EXAMINATION, UNSPECIFIED Start:07-Mar-2015 Instruction Type:Patient Education Patient Instructions Indication:PRE-OPERATIVE EXAMINATION, UNSPECIFIED Start:07-Mar-2015 Instruction Type:Provider Instructions for Treatment Patient Instructions Indication:Hypertension Start:08-Jul-2014 Instruction Type:Provider Instructions for Treatment How to access health informa tion online Indication:Other and unspecified hyperlipidemia Start:19-Nov-2013 Instruction Type:Patient Education How to access health informa tion online - Detail Indication:Other and unspecified hyperlipidemia Start:19-Nov-2013 Instruction Type:Patient Education Patient Instructions Indication:GERD (gastroesophageal reflux disease) Start:19-Nov-2013 Instruction Type:Provider Instructions for Treatment Patient Instructions Indication:Impaired Fasting Glucose Start:25-Apr-2013 Instruction Type:Provider Instructions for Treatment Patient Instructions Indication:Hypertension Start:14-Aug-2012 Instruction Type:Provider Instructions for Treatment Patient Instructions Indication:Impaired Fasting Glucose Start:03-Apr-2012 Instruction Type:Provider Instructions for Treatment [facility]; [facility] Work Phone: Instructions* Name Dates Details Patient Instructions Indication:Inflammatory arthritis Start:24-May-2022 Instruction Type:Provider Instructions for Treatment How to Access Health Informa tion Online using Patient Portal and [employer] Apps Indication:Inflammatory arthritis Start:24-May-2022 Instruction Type:Patient Education Patient Instructions Indication:Fever Start:23-Apr-2022 Instruction Type:Provider Instructions for Treatment How to Access Health Informa tion Online using Patient Portal and [employer] Apps Indication:Fever Start:23-Apr-2022 Instruction Type:Patient Education Patient Instructions Indication:Hypertension Start:15-Mar-2022 Instruction Type:Provider Instructions for Treatment How to Access Health Informa tion Online using Patient Portal and [employer] Apps Indication:Hypertension Start:15-Mar-2022 Instruction Type:Patient Education Patient Instructions Indication:Sore throat Start:03-Mar-2022 Instruction Type:Provider Instructions for Treatment How to Access Health Informa tion Online using Patient Portal and [employer] Apps Indication:Sore throat Start:03-Mar-2022 Instruction Type:Patient Education Patient Instructions Indication:Osteopenia Start:19-Jan-2022 Instruction Type:Provider Instructions for Treatment How to Access Health Informa tion Online using Patient Portal and [employer] Apps Indication:Osteopenia Start:19-Jan-2022 Instruction Type:Patient Education Patient Instructions Indication:Nonsmoker Start:29-Dec-2021 Instruction Type:Provider Instructions for Treatment How to Access Health Informa tion Online using Patient Portal and [employer] Apps Indication:Nonsmoker Start:29-Dec-2021 Instruction Type:Patient Education Patient Instructions Indication:BMI 24.0-24.9, adult Start:30-Nov-2021 Instruction Type:Provider Instructions for Treatment How to Access Health Informa tion Online using Patient Portal and [employer] Indication:BMI 24.0-24.9, adult Start:30-Nov-2021 Instruction Type:Patient Education Patient Instructions Indication:BMI 24.0-24.9, adult Start:04-Nov-2021 Instruction Type:Provider Instructions for Treatment How to Access Health Informa tion Online using Patient Portal and [employer] Apps Indication:BMI 24.0-24.9, adult Start:04-Nov-2021 Instruction Type:Patient Education Patient Instructions Indication:Night sweats Start:06-Jul-2021 Instruction Type:Provider Instructions for Treatment How to Access Health Informa tion Online using Patient Portal and [employer] Apps Indication:Night sweats Start:06-Jul-2021 Instruction Type:Patient Education Patient Instructions Indication:[facility] EXAM Start:10-Jun-2021 Instruction Type:Provider Instructions for Treatment How to Access Health Informa tion Online using Patient Portal and [employer] Apps Indication:[facility] EXAM Start:10-Jun-2021 Instruction Type:Patient Education Patient Instructions Indication:Nonsmoker Start:01-Jun-2021 Instruction Type:Provider Instructions for Treatment How to Access Health Informa tion Online using Patient Portal and [employer] Apps Indication:Nonsmoker Start:01-Jun-2021 Instruction Type:Patient Education Patient Instructions Indication:Hypertension Start:06-Feb-2021 Instruction Type:Provider Instructions for Treatment How to Access Health Informa tion Online using Patient Portal and [employer] Apps Indication:Hypertension Start:06-Feb-2021 Instruction Type:Patient Education Patient Instructions Indication:Other and unspecified hyperlipidemia Start:28-Apr-2020 Instruction Type:Provider Instructions for Treatment How to Access Health Informa tion Online using Patient Portal and [employer] Apps Indication:Other and unspecified hyperlipidemia Start:28-Apr-2020 Instruction Type:Patient Education How to access health informa tion online Indication:Neuropathy Start:18-Mar-2020 Instruction Type:Patient Education How to access health informa tion online Indication:Neuropathy Start:18-Mar-2020 Instruction Type:Patient Education Patient Instructions Indication:Neuropathy Start:18-Mar-2020 Instruction Type:Provider Instructions for Treatment How to access health informa tion online Indication:Skin tear of right upper extremity Start:02-Jan-2020 Instruction Type:Patient Education How to access health informa tion online - Detail Indication:Skin tear of right upper extremity Start:02-Jan-2020 Instruction Type:Patient Education Patient Instructions Indication:Skin tear of right upper extremity Start:02-Jan-2020 Instruction Type:Provider Instructions for Treatment How to access health informa tion online Indication:BMI 25.0-25.9,adult Start:24-Oct-2019 Instruction Type:Patient Education How to access health informa tion online - Detail Indication:BMI 25.0-25.9,adult Start:24-Oct-2019 Instruction Type:Patient Education Patient Instructions Indication:BMI 25.0-25.9,adult Start:24-Oct-2019 Instruction Type:Provider Instructions for Treatment How to access health informa tion online Indication:Nonsmoker Start:17-Jul-2019 Instruction Type:Patient Education How to access health informa tion online - Detail Indication:Nonsmoker Start:17-Jul-2019 Instruction Type:Patient Education Patient Instructions Indication:Nonsmoker Start:17-Jul-2019 Instruction Type:Provider Instructions for Treatment How to access health informa tion online Indication:Joint pain Start:10-Jul-2019 Instruction Type:Patient Education How to access health informa tion online - Detail Indication:Joint pain Start:10-Jul-2019 Instruction Type:Patient Education Patient Instructions Indication:Joint pain Start:10-Jul-2019 Instruction Type:Provider Instructions for Treatment How to access health informa tion online Indication:Sore throat Start:10-Nov-2015 Instruction Type:Patient Education How to access health informa tion online - Detail Indication:Sore throat Start:10-Nov-2015 Instruction Type:Patient Education Patient Instructions Indication:Sore throat Start:10-Nov-2015 Instruction Type:Provider Instructions for Treatment How to access health informa tion online Indication:PRE-OPERATIVE EXAMINATION, UNSPECIFIED Start:07-Mar-2015 Instruction Type:Patient Education How to access health informa tion online - Detail Indication:PRE-OPERATIVE EXAMINATION, UNSPECIFIED Start:07-Mar-2015 Instruction Type:Patient Education Patient Instructions Indication:PRE-OPERATIVE EXAMINATION, UNSPECIFIED Start:07-Mar-2015 Instruction Type:Provider Instructions for Treatment Patient Instructions Indication:Hypertension Start:08-Jul-2014 Instruction Type:Provider Instructions for Treatment How to access health informa tion online Indication:Other and unspecified hyperlipidemia Start:19-Nov-2013 Instruction Type:Patient Education How to access health informa tion online - Detail Indication:Other and unspecified hyperlipidemia Start:19-Nov-2013 Instruction Type:Patient Education Patient Instructions Indication:GERD (gastroesophageal reflux disease) Start:19-Nov-2013 Instruction Type:Provider Instructions for Treatment Patient Instructions Indication:Impaired Fasting Glucose Start:25-Apr-2013 Instruction Type:Provider Instructions for Treatment Patient Instructions Indication:Hypertension Start:14-Aug-2012 Instruction Type:Provider Instructions for Treatment Patient Instructions Indication:Impaired Fasting Glucose Start:03-Apr-2012 Instruction Type:Provider Instructions for Treatment [facility]; [facility] Work Phone: Instructions* Name Dates Details Patient Instructions Indication:Inflammatory arthritis Start:24-May-2022 Instruction Type:Provider Instructions for Treatment How to Access Health Informa tion Online using Patient Portal and [employer] Apps Indication:Inflammatory arthritis Start:24-May-2022 Instruction Type:Patient Education Patient Instructions Indication:Fever Start:23-Apr-2022 Instruction Type:Provider Instructions for Treatment How to Access Health Informa tion Online using Patient Portal and [employer] Apps Indication:Fever Start:23-Apr-2022 Instruction Type:Patient Education Patient Instructions Indication:Hypertension Start:15-Mar-2022 Instruction Type:Provider Instructions for Treatment How to Access Health Informa tion Online using Patient Portal and [employer] Apps Indication:Hypertension Start:15-Mar-2022 Instruction Type:Patient Education Patient Instructions Indication:Sore throat Start:03-Mar-2022 Instruction Type:Provider Instructions for Treatment How to Access Health Informa tion Online using Patient Portal and [employer] Apps Indication:Sore throat Start:03-Mar-2022 Instruction Type:Patient Education Patient Instructions Indication:Osteopenia Start:19-Jan-2022 Instruction Type:Provider Instructions for Treatment How to Access Health Informa tion Online using Patient Portal and [employer] Apps Indication:Osteopenia Start:19-Jan-2022 Instruction Type:Patient Education Patient Instructions Indication:Nonsmoker Start:29-Dec-2021 Instruction Type:Provider Instructions for Treatment How to Access Health Informa tion Online using Patient Portal and [employer] Apps Indication:Nonsmoker Start:29-Dec-2021 Instruction Type:Patient Education Patient Instructions Indication:BMI 24.0-24.9, adult Start:30-Nov-2021 Instruction Type:Provider Instructions for Treatment How to Access Health Informa tion Online using Patient Portal and [employer] Indication:BMI 24.0-24.9, adult Start:30-Nov-2021 Instruction Type:Patient Education Patient Instructions Indication:BMI 24.0-24.9, adult Start:04-Nov-2021 Instruction Type:Provider Instructions for Treatment How to Access Health Informa tion Online using Patient Portal and [employer] Indication:BMI 24.0-24.9, adult Start:04-Nov-2021 Instruction Type:Patient Education Patient Instructions Indication:Night sweats Start:06-Jul-2021 Instruction Type:Provider Instructions for Treatment How to Access Health Informa tion Online using Patient Portal and [employer] Apps Indication:Night sweats Start:06-Jul-2021 Instruction Type:Patient Education Patient Instructions Indication:[facility] EX[facility] Start:10-Jun-2021 Instruction Type:Provider Instructions for Treatment How to Access Health Informa tion Online using Patient Portal and [employer] Apps Indication:[facility] EXAM Start:10-Jun-2021 Instruction Type:Patient Education Patient Instructions Indication:Nonsmoker Start:01-Jun-2021 Instruction Type:Provider Instructions for Treatment How to Access Health Informa tion Online using Patient Portal and [employer] Apps Indication:Nonsmoker Start:01-Jun-2021 Instruction Type:Patient Education Patient Instructions Indication:Hypertension Start:06-Feb-2021 Instruction Type:Provider Instructions for Treatment How to Access Health Informa tion Online using Patient Portal and [employer] Apps Indication:Hypertension Start:06-Feb-2021 Instruction Type:Patient Education Patient Instructions Indication:Other and unspecified hyperlipidemia Start:28-Apr-2020 Instruction Type:Provider Instructions for Treatment How to Access Health Informa tion Online using Patient Portal and [employer] Apps Indication:Other and unspecified hyperlipidemia Start:28-Apr-2020 Instruction Type:Patient Education How to access health informa tion online Indication:Neuropathy Start:18-Mar-2020 Instruction Type:Patient Education How to access health informa tion online Indication:Neuropathy Start:18-Mar-2020 Instruction Type:Patient Education Patient Instructions Indication:Neuropathy Start:18-Mar-2020 Instruction Type:Provider Instructions for Treatment How to access health informa tion online Indication:Skin tear of right upper extremity Start:02-Jan-2020 Instruction Type:Patient Education How to access health informa tion online - Detail Indication:Skin tear of right upper extremity Start:02-Jan-2020 Instruction Type:Patient Education Patient Instructions Indication:Skin tear of right upper extremity Start:02-Jan-2020 Instruction Type:Provider Instructions for Treatment How to access health informa tion online Indication:BMI 25.0-25.9,adult Start:24-Oct-2019 Instruction Type:Patient Education How to access health informa tion online - Detail Indication:BMI 25.0-25.9,adult Start:24-Oct-2019 Instruction Type:Patient Education Patient Instructions Indication:BMI 25.0-25.9,adult Start:24-Oct-2019 Instruction Type:Provider Instructions for Treatment How to access health informa tion online Indication:Nonsmoker Start:17-Jul-2019 Instruction Type:Patient Education How to access health informa tion online - Detail Indication:Nonsmoker Start:17-Jul-2019 Instruction Type:Patient Education Patient Instructions Indication:Nonsmoker Start:17-Jul-2019 Instruction Type:Provider Instructions for Treatment How to access health informa tion online Indication:Joint pain Start:10-Jul-2019 Instruction Type:Patient Education How to access health informa tion online - Detail Indication:Joint pain Start:10-Jul-2019 Instruction Type:Patient Education Patient Instructions Indication:Joint pain Start:10-Jul-2019 Instruction Type:Provider Instructions for Treatment How to access health informa tion online Indication:Sore throat Start:10-Nov-2015 Instruction Type:Patient Education How to access health informa tion online - Detail Indication:Sore throat Start:10-Nov-2015 Instruction Type:Patient Education Patient Instructions Indication:Sore throat Start:10-Nov-2015 Instruction Type:Provider Instructions for Treatment How to access health informa tion online Indication:PRE-OPERATIVE EXAMINATION, UNSPECIFIED Start:07-Mar-2015 Instruction Type:Patient Education How to access health informa tion online - Detail Indication:PRE-OPERATIVE EXAMINATION, UNSPECIFIED Start:07-Mar-2015 Instruction Type:Patient Education Patient Instructions Indication:PRE-OPERATIVE EXAMINATION, UNSPECIFIED Start:07-Mar-2015 Instruction Type:Provider Instructions for Treatment Patient Instructions Indication:Hypertension Start:08-Jul-2014 Instruction Type:Provider Instructions for Treatment How to access health informa tion online Indication:Other and unspecified hyperlipidemia Start:19-Nov-2013 Instruction Type:Patient Education How to access health informa tion online - Detail Indication:Other and unspecified hyperlipidemia Start:19-Nov-2013 Instruction Type:Patient Education Patient Instructions Indication:GERD (gastroesophageal reflux disease) Start:19-Nov-2013 Instruction Type:Provider Instructions for Treatment Patient Instructions Indication:Impaired Fasting Glucose Start:25-Apr-2013 Instruction Type:Provider Instructions for Treatment Patient Instructions Indication:Hypertension Start:14-Aug-2012 Instruction Type:Provider Instructions for Treatment Patient Instructions Indication:Impaired Fasting Glucose Start:03-Apr-2012 Instruction Type:Provider Instructions for Treatment [facility]; [facility] Work Phone: Instructions* Name Dates Details Patient Instructions Indication:Inflammatory arthritis Start:24-May-2022 Instruction Type:Provider Instructions for Treatment How to Access Health Informa tion Online using Patient Portal and [employer] Indication:Inflammatory arthritis Start:24-May-2022 Instruction Type:Patient Education Patient Instructions Indication:Fever Start:23-Apr-2022 Instruction Type:Provider Instructions for Treatment How to Access Health Informa tion Online using Patient Portal and [employer] Indication:Fever Start:23-Apr-2022 Instruction Type:Patient Education Patient Instructions Indication:Hypertension Start:15-Mar-2022 Instruction Type:Provider Instructions for Treatment How to Access Health Informa tion Online using Patient Portal and [employer] Apps Indication:Hypertension Start:15-Mar-2022 Instruction Type:Patient Education Patient Instructions Indication:Sore throat Start:03-Mar-2022 Instruction Type:Provider Instructions for Treatment How to Access Health Informa tion Online using Patient Portal and [employer] Apps Indication:Sore throat Start:03-Mar-2022 Instruction Type:Patient Education Patient Instructions Indication:Osteopenia Start:19-Jan-2022 Instruction Type:Provider Instructions for Treatment How to Access Health Informa tion Online using Patient Portal and [employer] Apps Indication:Osteopenia Start:19-Jan-2022 Instruction Type:Patient Education Patient Instructions Indication:Nonsmoker Start:29-Dec-2021 Instruction Type:Provider Instructions for Treatment How to Access Health Informa tion Online using Patient Portal and [employer] Indication:Nonsmoker Start:29-Dec-2021 Instruction Type:Patient Education Patient Instructions Indication:BMI 24.0-24.9, adult Start:30-Nov-2021 Instruction Type:Provider Instructions for Treatment How to Access Health Informa tion Online using Patient Portal and [employer] Indication:BMI 24.0-24.9, adult Start:30-Nov-2021 Instruction Type:Patient Education Patient Instructions Indication:BMI 24.0-24.9, adult Start:04-Nov-2021 Instruction Type:Provider Instructions for Treatment How to Access Health Informa tion Online using Patient Portal and [employer] Indication:BMI 24.0-24.9, adult Start:04-Nov-2021 Instruction Type:Patient Education Patient Instructions Indication:Night sweats Start:06-Jul-2021 Instruction Type:Provider Instructions for Treatment How to Access Health Informa tion Online using Patient Portal and [employer] Indication:Night sweats Start:06-Jul-2021 Instruction Type:Patient Education Patient Instructions Indication:[facility] EXAM Start:10-Jun-2021 Instruction Type:Provider Instructions for Treatment How to Access Health Informa tion Online using Patient Portal and [employer] Indication:[facility] EXAM Start:10-Jun-2021 Instruction Type:Patient Education Patient Instructions Indication:Nonsmoker Start:01-Jun-2021 Instruction Type:Provider Instructions for Treatment How to Access Health Informa tion Online using Patient Portal and [employer] Apps Indication:Nonsmoker Start:01-Jun-2021 Instruction Type:Patient Education Patient Instructions Indication:Hypertension Start:06-Feb-2021 Instruction Type:Provider Instructions for Treatment How to Access Health Informa tion Online using Patient Portal and [employer] Indication:Hypertension Start:06-Feb-2021 Instruction Type:Patient Education Patient Instructions Indication:Other and unspecified hyperlipidemia Start:28-Apr-2020 Instruction Type:Provider Instructions for Treatment How to Access Health Informa tion Online using Patient Portal and [employer] Indication:Other and unspecified hyperlipidemia Start:28-Apr-2020 Instruction Type:Patient Education How to access health informa tion online Indication:Neuropathy Start:18-Mar-2020 Instruction Type:Patient Education How to access health informa tion online Indication:Neuropathy Start:18-Mar-2020 Instruction Type:Patient Education Patient Instructions Indication:Neuropathy Start:18-Mar-2020 Instruction Type:Provider Instructions for Treatment How to access health informa tion online Indication:Skin tear of right upper extremity Start:02-Jan-2020 Instruction Type:Patient Education How to access health informa tion online - Detail Indication:Skin tear of right upper extremity Start:02-Jan-2020 Instruction Type:Patient Education Patient Instructions Indication:Skin tear of right upper extremity Start:02-Jan-2020 Instruction Type:Provider Instructions for Treatment How to access health informa tion online Indication:BMI 25.0-25.9,adult Start:24-Oct-2019 Instruction Type:Patient Education How to access health informa tion online - Detail Indication:BMI 25.0-25.9,adult Start:24-Oct-2019 Instruction Type:Patient Education Patient Instructions Indication:BMI 25.0-25.9,adult Start:24-Oct-2019 Instruction Type:Provider Instructions for Treatment How to access health informa tion online Indication:Nonsmoker Start:17-Jul-2019 Instruction Type:Patient Education How to access health informa tion online - Detail Indication:Nonsmoker Start:17-Jul-2019 Instruction Type:Patient Education Patient Instructions Indication:Nonsmoker Start:17-Jul-2019 Instruction Type:Provider Instructions for Treatment How to access health informa tion online Indication:Joint pain Start:10-Jul-2019 Instruction Type:Patient Education How to access health informa tion online - Detail Indication:Joint pain Start:10-Jul-2019 Instruction Type:Patient Education Patient Instructions Indication:Joint pain Start:10-Jul-2019 Instruction Type:Provider Instructions for Treatment How to access health informa tion online Indication:Sore throat Start:10-Nov-2015 Instruction Type:Patient Education How to access health informa tion online - Detail Indication:Sore throat Start:10-Nov-2015 Instruction Type:Patient Education Patient Instructions Indication:Sore throat Start:10-Nov-2015 Instruction Type:Provider Instructions for Treatment How to access health informa tion online Indication:PRE-OPERATIVE EXAMINATION, UNSPECIFIED Start:07-Mar-2015 Instruction Type:Patient Education How to access health informa tion online - Detail Indication:PRE-OPERATIVE EXAMINATION, UNSPECIFIED Start:07-Mar-2015 Instruction Type:Patient Education Patient Instructions Indication:PRE-OPERATIVE EXAMINATION, UNSPECIFIED Start:07-Mar-2015 Instruction Type:Provider Instructions for Treatment Patient Instructions Indication:Hypertension Start:08-Jul-2014 Instruction Type:Provider Instructions for Treatment How to access health informa tion online Indication:Other and unspecified hyperlipidemia Start:19-Nov-2013 Instruction Type:Patient Education How to access health informa tion online - Detail Indication:Other and unspecified hyperlipidemia Start:19-Nov-2013 Instruction Type:Patient Education Patient Instructions Indication:GERD (gastroesophageal reflux disease) Start:19-Nov-2013 Instruction Type:Provider Instructions for Treatment Patient Instructions Indication:Impaired Fasting Glucose Start:25-Apr-2013 Instruction Type:Provider Instructions for Treatment Patient Instructions Indication:Hypertension Start:14-Aug-2012 Instruction Type:Provider Instructions for Treatment Patient Instructions Indication:Impaired Fasting Glucose Start:03-Apr-2012 Instruction Type:Provider Instructions for Treatment [facility]; [facility] Work Phone: Instructions* Name Dates Details Patient Instructions Indication:Inflammatory arthritis Start:24-May-2022 Instruction Type:Provider Instructions for Treatment How to Access Health Informa tion Online using Patient Portal and [employer]rd [employer] Apps Indication:Inflammatory arthritis Start:24-May-2022 Instruction Type:Patient Education Patient Instructions Indication:Fever Start:23-Apr-2022 Instruction Type:Provider Instructions for Treatment How to Access Health Informa tion Online using Patient Portal and [employer]rd [employer] Apps Indication:Fever Start:23-Apr-2022 Instruction Type:Patient Education Patient Instructions Indication:Hypertension Start:15-Mar-2022 Instruction Type:Provider Instructions for Treatment How to Access Health Informa tion Online using Patient Portal and [employer]rd [employer] Apps Indication:Hypertension Start:15-Mar-2022 Instruction Type:Patient Education Patient Instructions Indication:Sore throat Start:03-Mar-2022 Instruction Type:Provider Instructions for Treatment How to Access Health Informa tion Online using Patient Portal and [employer]rd [employer] Apps Indication:Sore throat Start:03-Mar-2022 Instruction Type:Patient Education Patient Instructions Indication:Osteopenia Start:19-Jan-2022 Instruction Type:Provider Instructions for Treatment How to Access Health Informa tion Online using Patient Portal and [employer]rd [employer] Apps Indication:Osteopenia Start:19-Jan-2022 Instruction Type:Patient Education Patient Instructions Indication:Nonsmoker Start:29-Dec-2021 Instruction Type:Provider Instructions for Treatment How to Access Health Informa tion Online using Patient Portal and [employer]rd [employer] Apps Indication:Nonsmoker Start:29-Dec-2021 Instruction Type:Patient Education Patient Instructions Indication:BMI 24.0-24.9, adult Start:30-Nov-2021 Instruction Type:Provider Instructions for Treatment How to Access Health Informa tion Online using Patient Portal and [employer]rd [employer] Apps Indication:BMI 24.0-24.9, adult Start:30-Nov-2021 Instruction Type:Patient Education Patient Instructions Indication:BMI 24.0-24.9, adult Start:04-Nov-2021 Instruction Type:Provider Instructions for Treatment How to Access Health Informa tion Online using Patient Portal and [employer] Apps Indication:BMI 24.0-24.9, adult Start:04-Nov-2021 Instruction Type:Patient Education Patient Instructions Indication:Night sweats Start:06-Jul-2021 Instruction Type:Provider Instructions for Treatment How to Access Health Informa tion Online using Patient Portal and [employer] Apps Indication:Night sweats Start:06-Jul-2021 Instruction Type:Patient Education Patient Instructions Indication:[facility] EX[facility] Start:10-Jun-2021 Instruction Type:Provider Instructions for Treatment How to Access Health Informa tion Online using Patient Portal and [employer]rd [employer] Apps Indication:[facility] EX[facility] Start:10-Jun-2021 Instruction Type:Patient Education Patient Instructions Indication:Nonsmoker Start:01-Jun-2021 Instruction Type:Provider Instructions for Treatment How to Access Health Informa tion Online using Patient Portal and [employer] Apps Indication:Nonsmoker Start:01-Jun-2021 Instruction Type:Patient Education Patient Instructions Indication:Hypertension Start:06-Feb-2021 Instruction Type:Provider Instructions for Treatment How to Access Health Informa tion Online using Patient Portal and [employer] Apps Indication:Hypertension Start:06-Feb-2021 Instruction Type:Patient Education Patient Instructions Indication:Other and unspecified hyperlipidemia Start:28-Apr-2020 Instruction Type:Provider Instructions for Treatment How to Access Health Informa tion Online using Patient Portal and [employer] Apps Indication:Other and unspecified hyperlipidemia Start:28-Apr-2020 Instruction Type:Patient Education How to access health informa tion online Indication:Neuropathy Start:18-Mar-2020 Instruction Type:Patient Education How to access health informa tion online Indication:Neuropathy Start:18-Mar-2020 Instruction Type:Patient Education Patient Instructions Indication:Neuropathy Start:18-Mar-2020 Instruction Type:Provider Instructions for Treatment How to access health informa tion online Indication:Skin tear of right upper extremity Start:02-Jan-2020 Instruction Type:Patient Education How to access health informa tion online - Detail Indication:Skin tear of right upper extremity Start:02-Jan-2020 Instruction Type:Patient Education Patient Instructions Indication:Skin tear of right upper extremity Start:02-Jan-2020 Instruction Type:Provider Instructions for Treatment How to access health informa tion online Indication:BMI 25.0-25.9,adult Start:24-Oct-2019 Instruction Type:Patient Education How to access health informa tion online - Detail Indication:BMI 25.0-25.9,adult Start:24-Oct-2019 Instruction Type:Patient Education Patient Instructions Indication:BMI 25.0-25.9,adult Start:24-Oct-2019 Instruction Type:Provider Instructions for Treatment How to access health informa tion online Indication:Nonsmoker Start:17-Jul-2019 Instruction Type:Patient Education How to access health informa tion online - Detail Indication:Nonsmoker Start:17-Jul-2019 Instruction Type:Patient Education Patient Instructions Indication:Nonsmoker Start:17-Jul-2019 Instruction Type:Provider Instructions for Treatment How to access health informa tion online Indication:Joint pain Start:10-Jul-2019 Instruction Type:Patient Education How to access health informa tion online - Detail Indication:Joint pain Start:10-Jul-2019 Instruction Type:Patient Education Patient Instructions Indication:Joint pain Start:10-Jul-2019 Instruction Type:Provider Instructions for Treatment How to access health informa tion online Indication:Sore throat Start:10-Nov-2015 Instruction Type:Patient Education How to access health informa tion online - Detail Indication:Sore throat Start:10-Nov-2015 Instruction Type:Patient Education Patient Instructions Indication:Sore throat Start:10-Nov-2015 Instruction Type:Provider Instructions for Treatment How to access health informa tion online Indication:PRE-OPERATIVE EXAMINATION, UNSPECIFIED Start:07-Mar-2015 Instruction Type:Patient Education How to access health informa tion online - Detail Indication:PRE-OPERATIVE EXAMINATION, UNSPECIFIED Start:07-Mar-2015 Instruction Type:Patient Education Patient Instructions Indication:PRE-OPERATIVE EXAMINATION, UNSPECIFIED Start:07-Mar-2015 Instruction Type:Provider Instructions for Treatment Patient Instructions Indication:Hypertension Start:08-Jul-2014 Instruction Type:Provider Instructions for Treatment How to access health informa tion online Indication:Other and unspecified hyperlipidemia Start:19-Nov-2013 Instruction Type:Patient Education How to access health informa tion online - Detail Indication:Other and unspecified hyperlipidemia Start:19-Nov-2013 Instruction Type:Patient Education Patient Instructions Indication:GERD (gastroesophageal reflux disease) Start:19-Nov-2013 Instruction Type:Provider Instructions for Treatment Patient Instructions Indication:Impaired Fasting Glucose Start:25-Apr-2013 Instruction Type:Provider Instructions for Treatment Patient Instructions Indication:Hypertension Start:14-Aug-2012 Instruction Type:Provider Instructions for Treatment Patient Instructions Indication:Impaired Fasting Glucose Start:03-Apr-2012 Instruction Type:Provider Instructions for Treatment [facility]; [facility] Work Phone: Instructions* Name Dates Details Patient Instructions Indication:Inflammatory arthritis Start:24-May-2022 Instruction Type:Provider Instructions for Treatment How to Access Health Informa tion Online using Patient Portal and [employer] Apps Indication:Inflammatory arthritis Start:24-May-2022 Instruction Type:Patient Education Patient Instructions Indication:Fever Start:23-Apr-2022 Instruction Type:Provider Instructions for Treatment How to Access Health Informa tion Online using Patient Portal and [employer] Apps Indication:Fever Start:23-Apr-2022 Instruction Type:Patient Education Patient Instructions Indication:Hypertension Start:15-Mar-2022 Instruction Type:Provider Instructions for Treatment How to Access Health Informa tion Online using Patient Portal and [employer] Apps Indication:Hypertension Start:15-Mar-2022 Instruction Type:Patient Education Patient Instructions Indication:Sore throat Start:03-Mar-2022 Instruction Type:Provider Instructions for Treatment How to Access Health Informa tion Online using Patient Portal and [employer] Apps Indication:Sore throat Start:03-Mar-2022 Instruction Type:Patient Education Patient Instructions Indication:Osteopenia Start:19-Jan-2022 Instruction Type:Provider Instructions for Treatment How to Access Health Informa tion Online using Patient Portal and [employer] Apps Indication:Osteopenia Start:19-Jan-2022 Instruction Type:Patient Education Patient Instructions Indication:Nonsmoker Start:29-Dec-2021 Instruction Type:Provider Instructions for Treatment How to Access Health Informa tion Online using Patient Portal and [employer] Apps Indication:Nonsmoker Start:29-Dec-2021 Instruction Type:Patient Education Patient Instructions Indication:BMI 24.0-24.9, adult Start:30-Nov-2021 Instruction Type:Provider Instructions for Treatment How to Access Health Informa tion Online using Patient Portal and [employer] Apps Indication:BMI 24.0-24.9, adult Start:30-Nov-2021 Instruction Type:Patient Education Patient Instructions Indication:BMI 24.0-24.9, adult Start:04-Nov-2021 Instruction Type:Provider Instructions for Treatment How to Access Health Informa tion Online using Patient Portal and [employer] Apps Indication:BMI 24.0-24.9, adult Start:04-Nov-2021 Instruction Type:Patient Education Patient Instructions Indication:Night sweats Start:06-Jul-2021 Instruction Type:Provider Instructions for Treatment How to Access Health Informa tion Online using Patient Portal and [employer] Apps Indication:Night sweats Start:06-Jul-2021 Instruction Type:Patient Education Patient Instructions Indication:[facility] EX[facility] Start:10-Jun-2021 Instruction Type:Provider Instructions for Treatment How to Access Health Informa tion Online using Patient Portal and [employer] Apps Indication:[facility] EX[facility] Start:10-Jun-2021 Instruction Type:Patient Education Patient Instructions Indication:Nonsmoker Start:01-Jun-2021 Instruction Type:Provider Instructions for Treatment How to Access Health Informa tion Online using Patient Portal and [employer] Apps Indication:Nonsmoker Start:01-Jun-2021 Instruction Type:Patient Education Patient Instructions Indication:Hypertension Start:06-Feb-2021 Instruction Type:Provider Instructions for Treatment How to Access Health Informa tion Online using Patient Portal and [employer] Apps Indication:Hypertension Start:06-Feb-2021 Instruction Type:Patient Education Patient Instructions Indication:Other and unspecified hyperlipidemia Start:28-Apr-2020 Instruction Type:Provider Instructions for Treatment How to Access Health Informa tion Online using Patient Portal and [employer] Apps Indication:Other and unspecified hyperlipidemia Start:28-Apr-2020 Instruction Type:Patient Education How to access health informa tion online Indication:Neuropathy Start:18-Mar-2020 Instruction Type:Patient Education How to access health informa tion online Indication:Neuropathy Start:18-Mar-2020 Instruction Type:Patient Education Patient Instructions Indication:Neuropathy Start:18-Mar-2020 Instruction Type:Provider Instructions for Treatment How to access health informa tion online Indication:Skin tear of right upper extremity Start:02-Jan-2020 Instruction Type:Patient Education How to access health informa tion online - Detail Indication:Skin tear of right upper extremity Start:02-Jan-2020 Instruction Type:Patient Education Patient Instructions Indication:Skin tear of right upper extremity Start:02-Jan-2020 Instruction Type:Provider Instructions for Treatment How to access health informa tion online Indication:BMI 25.0-25.9,adult Start:24-Oct-2019 Instruction Type:Patient Education How to access health informa tion online - Detail Indication:BMI 25.0-25.9,adult Start:24-Oct-2019 Instruction Type:Patient Education Patient Instructions Indication:BMI 25.0-25.9,adult Start:24-Oct-2019 Instruction Type:Provider Instructions for Treatment How to access health informa tion online Indication:Nonsmoker Start:17-Jul-2019 Instruction Type:Patient Education How to access health informa tion online - Detail Indication:Nonsmoker Start:17-Jul-2019 Instruction Type:Patient Education Patient Instructions Indication:Nonsmoker Start:17-Jul-2019 Instruction Type:Provider Instructions for Treatment How to access health informa tion online Indication:Joint pain Start:10-Jul-2019 Instruction Type:Patient Education How to access health informa tion online - Detail Indication:Joint pain Start:10-Jul-2019 Instruction Type:Patient Education Patient Instructions Indication:Joint pain Start:10-Jul-2019 Instruction Type:Provider Instructions for Treatment How to access health informa tion online Indication:Sore throat Start:10-Nov-2015 Instruction Type:Patient Education How to access health informa tion online - Detail Indication:Sore throat Start:10-Nov-2015 Instruction Type:Patient Education Patient Instructions Indication:Sore throat Start:10-Nov-2015 Instruction Type:Provider Instructions for Treatment How to access health informa tion online Indication:PRE-OPERATIVE EXAMINATION, UNSPECIFIED Start:07-Mar-2015 Instruction Type:Patient Education How to access health informa tion online - Detail Indication:PRE-OPERATIVE EXAMINATION, UNSPECIFIED Start:07-Mar-2015 Instruction Type:Patient Education Patient Instructions Indication:PRE-OPERATIVE EXAMINATION, UNSPECIFIED Start:07-Mar-2015 Instruction Type:Provider Instructions for Treatment Patient Instructions Indication:Hypertension Start:08-Jul-2014 Instruction Type:Provider Instructions for Treatment How to access health informa tion online Indication:Other and unspecified hyperlipidemia Start:19-Nov-2013 Instruction Type:Patient Education How to access health informa tion online - Detail Indication:Other and unspecified hyperlipidemia Start:19-Nov-2013 Instruction Type:Patient Education Patient Instructions Indication:GERD (gastroesophageal reflux disease) Start:19-Nov-2013 Instruction Type:Provider Instructions for Treatment Patient Instructions Indication:Impaired Fasting Glucose Start:25-Apr-2013 Instruction Type:Provider Instructions for Treatment Patient Instructions Indication:Hypertension Start:14-Aug-2012 Instruction Type:Provider Instructions for Treatment Patient Instructions Indication:Impaired Fasting Glucose Start:03-Apr-2012 Instruction Type:Provider Instructions for Treatment [facility]; [facility] Work Phone: Instructions* Name Dates Details Patient Instructions Indication:Inflammatory arthritis Start:24-May-2022 Instruction Type:Provider Instructions for Treatment How to Access Health Informa tion Online using Patient Portal and [employer] Apps Indication:Inflammatory arthritis Start:24-May-2022 Instruction Type:Patient Education Patient Instructions Indication:Fever Start:23-Apr-2022 Instruction Type:Provider Instructions for Treatment How to Access Health Informa tion Online using Patient Portal and [employer] Apps Indication:Fever Start:23-Apr-2022 Instruction Type:Patient Education Patient Instructions Indication:Hypertension Start:15-Mar-2022 Instruction Type:Provider Instructions for Treatment How to Access Health Informa tion Online using Patient Portal and [employer]rd [employer] Apps Indication:Hypertension Start:15-Mar-2022 Instruction Type:Patient Education Patient Instructions Indication:Sore throat Start:03-Mar-2022 Instruction Type:Provider Instructions for Treatment How to Access Health Informa tion Online using Patient Portal and [employer] Apps Indication:Sore throat Start:03-Mar-2022 Instruction Type:Patient Education Patient Instructions Indication:Osteopenia Start:19-Jan-2022 Instruction Type:Provider Instructions for Treatment How to Access Health Informa tion Online using Patient Portal and [employer]rd [employer] Apps Indication:Osteopenia Start:19-Jan-2022 Instruction Type:Patient Education Patient Instructions Indication:Nonsmoker Start:29-Dec-2021 Instruction Type:Provider Instructions for Treatment How to Access Health Informa tion Online using Patient Portal and [employer]rd [employer] Apps Indication:Nonsmoker Start:29-Dec-2021 Instruction Type:Patient Education Patient Instructions Indication:BMI 24.0-24.9, adult Start:30-Nov-2021 Instruction Type:Provider Instructions for Treatment How to Access Health Informa tion Online using Patient Portal and [employer] Apps Indication:BMI 24.0-24.9, adult Start:30-Nov-2021 Instruction Type:Patient Education Patient Instructions Indication:BMI 24.0-24.9, adult Start:04-Nov-2021 Instruction Type:Provider Instructions for Treatment How to Access Health Informa tion Online using Patient Portal and [employer]rd [employer] Apps Indication:BMI 24.0-24.9, adult Start:04-Nov-2021 Instruction Type:Patient Education Patient Instructions Indication:Night sweats Start:06-Jul-2021 Instruction Type:Provider Instructions for Treatment How to Access Health Informa tion Online using Patient Portal and [employer]rd [employer] Apps Indication:Night sweats Start:06-Jul-2021 Instruction Type:Patient Education Patient Instructions Indication:[facility] EX[facility] Start:10-Jun-2021 Instruction Type:Provider Instructions for Treatment How to Access Health Informa tion Online using Patient Portal and [employer]rd [employer] Apps Indication:[facility] EX[facility] Start:10-Jun-2021 Instruction Type:Patient Education Patient Instructions Indication:Nonsmoker Start:01-Jun-2021 Instruction Type:Provider Instructions for Treatment How to Access Health Informa tion Online using Patient Portal and [employer] Apps Indication:Nonsmoker Start:01-Jun-2021 Instruction Type:Patient Education Patient Instructions Indication:Hypertension Start:06-Feb-2021 Instruction Type:Provider Instructions for Treatment How to Access Health Informa tion Online using Patient Portal and [employer] Apps Indication:Hypertension Start:06-Feb-2021 Instruction Type:Patient Education Patient Instructions Indication:Other and unspecified hyperlipidemia Start:28-Apr-2020 Instruction Type:Provider Instructions for Treatment How to Access Health Informa tion Online using Patient Portal and [employer] Apps Indication:Other and unspecified hyperlipidemia Start:28-Apr-2020 Instruction Type:Patient Education How to access health informa tion online Indication:Neuropathy Start:18-Mar-2020 Instruction Type:Patient Education How to access health informa tion online Indication:Neuropathy Start:18-Mar-2020 Instruction Type:Patient Education Patient Instructions Indication:Neuropathy Start:18-Mar-2020 Instruction Type:Provider Instructions for Treatment How to access health informa tion online Indication:Skin tear of right upper extremity Start:02-Jan-2020 Instruction Type:Patient Education How to access health informa tion online - Detail Indication:Skin tear of right upper extremity Start:02-Jan-2020 Instruction Type:Patient Education Patient Instructions Indication:Skin tear of right upper extremity Start:02-Jan-2020 Instruction Type:Provider Instructions for Treatment How to access health informa tion online Indication:BMI 25.0-25.9,adult Start:24-Oct-2019 Instruction Type:Patient Education How to access health informa tion online - Detail Indication:BMI 25.0-25.9,adult Start:24-Oct-2019 Instruction Type:Patient Education Patient Instructions Indication:BMI 25.0-25.9,adult Start:24-Oct-2019 Instruction Type:Provider Instructions for Treatment How to access health informa tion online Indication:Nonsmoker Start:17-Jul-2019 Instruction Type:Patient Education How to access health informa tion online - Detail Indication:Nonsmoker Start:17-Jul-2019 Instruction Type:Patient Education Patient Instructions Indication:Nonsmoker Start:17-Jul-2019 Instruction Type:Provider Instructions for Treatment How to access health informa tion online Indication:Joint pain Start:10-Jul-2019 Instruction Type:Patient Education How to access health informa tion online - Detail Indication:Joint pain Start:10-Jul-2019 Instruction Type:Patient Education Patient Instructions Indication:Joint pain Start:10-Jul-2019 Instruction Type:Provider Instructions for Treatment How to access health informa tion online Indication:Sore throat Start:10-Nov-2015 Instruction Type:Patient Education How to access health informa tion online - Detail Indication:Sore throat Start:10-Nov-2015 Instruction Type:Patient Education Patient Instructions Indication:Sore throat Start:10-Nov-2015 Instruction Type:Provider Instructions for Treatment How to access health informa tion online Indication:PRE-OPERATIVE EXAMINATION, UNSPECIFIED Start:07-Mar-2015 Instruction Type:Patient Education How to access health informa tion online - Detail Indication:PRE-OPERATIVE EXAMINATION, UNSPECIFIED Start:07-Mar-2015 Instruction Type:Patient Education Patient Instructions Indication:PRE-OPERATIVE EXAMINATION, UNSPECIFIED Start:07-Mar-2015 Instruction Type:Provider Instructions for Treatment Patient Instructions Indication:Hypertension Start:08-Jul-2014 Instruction Type:Provider Instructions for Treatment How to access health informa tion online Indication:Other and unspecified hyperlipidemia Start:19-Nov-2013 Instruction Type:Patient Education How to access health informa tion online - Detail Indication:Other and unspecified hyperlipidemia Start:19-Nov-2013 Instruction Type:Patient Education Patient Instructions Indication:GERD (gastroesophageal reflux disease) Start:19-Nov-2013 Instruction Type:Provider Instructions for Treatment Patient Instructions Indication:Impaired Fasting Glucose Start:25-Apr-2013 Instruction Type:Provider Instructions for Treatment Patient Instructions Indication:Hypertension Start:14-Aug-2012 Instruction Type:Provider Instructions for Treatment Patient Instructions Indication:Impaired Fasting Glucose Start:03-Apr-2012 Instruction Type:Provider Instructions for Treatment [facility]; [facility] Work Phone: Instructions* Name Dates Details Patient Instructions Indication:Inflammatory arthritis Start:24-May-2022 Instruction Type:Provider Instructions for Treatment How to Access Health Informa tion Online using Patient Portal and [employer]rd [employer] Apps Indication:Inflammatory arthritis Start:24-May-2022 Instruction Type:Patient Education Patient Instructions Indication:Fever Start:23-Apr-2022 Instruction Type:Provider Instructions for Treatment How to Access Health Informa tion Online using Patient Portal and [employer]rd [employer] Apps Indication:Fever Start:23-Apr-2022 Instruction Type:Patient Education Patient Instructions Indication:Hypertension Start:15-Mar-2022 Instruction Type:Provider Instructions for Treatment How to Access Health Informa tion Online using Patient Portal and [employer]rd [employer] Apps Indication:Hypertension Start:15-Mar-2022 Instruction Type:Patient Education Patient Instructions Indication:Sore throat Start:03-Mar-2022 Instruction Type:Provider Instructions for Treatment How to Access Health Informa tion Online using Patient Portal and [employer]rd [employer] Apps Indication:Sore throat Start:03-Mar-2022 Instruction Type:Patient Education Patient Instructions Indication:Osteopenia Start:19-Jan-2022 Instruction Type:Provider Instructions for Treatment How to Access Health Informa tion Online using Patient Portal and [employer]rd [employer] Apps Indication:Osteopenia Start:19-Jan-2022 Instruction Type:Patient Education Patient Instructions Indication:Nonsmoker Start:29-Dec-2021 Instruction Type:Provider Instructions for Treatment How to Access Health Informa tion Online using Patient Portal and [employer]rd [employer] Apps Indication:Nonsmoker Start:29-Dec-2021 Instruction Type:Patient Education Patient Instructions Indication:BMI 24.0-24.9, adult Start:30-Nov-2021 Instruction Type:Provider Instructions for Treatment How to Access Health Informa tion Online using Patient Portal and [employer]rd [employer] Apps Indication:BMI 24.0-24.9, adult Start:30-Nov-2021 Instruction Type:Patient Education Patient Instructions Indication:BMI 24.0-24.9, adult Start:04-Nov-2021 Instruction Type:Provider Instructions for Treatment How to Access Health Informa tion Online using Patient Portal and [employer]rd [employer] Apps Indication:BMI 24.0-24.9, adult Start:04-Nov-2021 Instruction Type:Patient Education Patient Instructions Indication:Night sweats Start:06-Jul-2021 Instruction Type:Provider Instructions for Treatment How to Access Health Informa tion Online using Patient Portal and [employer] Apps Indication:Night sweats Start:06-Jul-2021 Instruction Type:Patient Education Patient Instructions Indication:[facility] EX[facility] Start:10-Jun-2021 Instruction Type:Provider Instructions for Treatment How to Access Health Informa tion Online using Patient Portal and [employer]rd [employer] Apps Indication:[facility] EX[facility] Start:10-Jun-2021 Instruction Type:Patient Education Patient Instructions Indication:Nonsmoker Start:01-Jun-2021 Instruction Type:Provider Instructions for Treatment How to Access Health Informa tion Online using Patient Portal and [employer] Apps Indication:Nonsmoker Start:01-Jun-2021 Instruction Type:Patient Education Patient Instructions Indication:Hypertension Start:06-Feb-2021 Instruction Type:Provider Instructions for Treatment How to Access Health Informa tion Online using Patient Portal and [employer] Apps Indication:Hypertension Start:06-Feb-2021 Instruction Type:Patient Education Patient Instructions Indication:Other and unspecified hyperlipidemia Start:28-Apr-2020 Instruction Type:Provider Instructions for Treatment How to Access Health Informa tion Online using Patient Portal and [employer]rd [employer] Apps Indication:Other and unspecified hyperlipidemia Start:28-Apr-2020 Instruction Type:Patient Education How to access health informa tion online Indication:Neuropathy Start:18-Mar-2020 Instruction Type:Patient Education How to access health informa tion online Indication:Neuropathy Start:18-Mar-2020 Instruction Type:Patient Education Patient Instructions Indication:Neuropathy Start:18-Mar-2020 Instruction Type:Provider Instructions for Treatment How to access health informa tion online Indication:Skin tear of right upper extremity Start:02-Jan-2020 Instruction Type:Patient Education How to access health informa tion online - Detail Indication:Skin tear of right upper extremity Start:02-Jan-2020 Instruction Type:Patient Education Patient Instructions Indication:Skin tear of right upper extremity Start:02-Jan-2020 Instruction Type:Provider Instructions for Treatment How to access health informa tion online Indication:BMI 25.0-25.9,adult Start:24-Oct-2019 Instruction Type:Patient Education How to access health informa tion online - Detail Indication:BMI 25.0-25.9,adult Start:24-Oct-2019 Instruction Type:Patient Education Patient Instructions Indication:BMI 25.0-25.9,adult Start:24-Oct-2019 Instruction Type:Provider Instructions for Treatment How to access health informa tion online Indication:Nonsmoker Start:17-Jul-2019 Instruction Type:Patient Education How to access health informa tion online - Detail Indication:Nonsmoker Start:17-Jul-2019 Instruction Type:Patient Education Patient Instructions Indication:Nonsmoker Start:17-Jul-2019 Instruction Type:Provider Instructions for Treatment How to access health informa tion online Indication:Joint pain Start:10-Jul-2019 Instruction Type:Patient Education How to access health informa tion online - Detail Indication:Joint pain Start:10-Jul-2019 Instruction Type:Patient Education Patient Instructions Indication:Joint pain Start:10-Jul-2019 Instruction Type:Provider Instructions for Treatment How to access health informa tion online Indication:Sore throat Start:10-Nov-2015 Instruction Type:Patient Education How to access health informa tion online - Detail Indication:Sore throat Start:10-Nov-2015 Instruction Type:Patient Education Patient Instructions Indication:Sore throat Start:10-Nov-2015 Instruction Type:Provider Instructions for Treatment How to access health informa tion online Indication:PRE-OPERATIVE EXAMINATION, UNSPECIFIED Start:07-Mar-2015 Instruction Type:Patient Education How to access health informa tion online - Detail Indication:PRE-OPERATIVE EXAMINATION, UNSPECIFIED Start:07-Mar-2015 Instruction Type:Patient Education Patient Instructions Indication:PRE-OPERATIVE EXAMINATION, UNSPECIFIED Start:07-Mar-2015 Instruction Type:Provider Instructions for Treatment Patient Instructions Indication:Hypertension Start:08-Jul-2014 Instruction Type:Provider Instructions for Treatment How to access health informa tion online Indication:Other and unspecified hyperlipidemia Start:19-Nov-2013 Instruction Type:Patient Education How to access health informa tion online - Detail Indication:Other and unspecified hyperlipidemia Start:19-Nov-2013 Instruction Type:Patient Education Patient Instructions Indication:GERD (gastroesophageal reflux disease) Start:19-Nov-2013 Instruction Type:Provider Instructions for Treatment Patient Instructions Indication:Impaired Fasting Glucose Start:25-Apr-2013 Instruction Type:Provider Instructions for Treatment Patient Instructions Indication:Hypertension Start:14-Aug-2012 Instruction Type:Provider Instructions for Treatment Patient Instructions Indication:Impaired Fasting Glucose Start:03-Apr-2012 Instruction Type:Provider Instructions for Treatment [facility]; [facility] Work Phone: Instructions* Name Dates Details Patient Instructions Indication:Hypertension Start:31-Aug-2022 Instruction Type:Provider Instructions for Treatment How to Access Health Informa tion Online using Patient Portal and [employer] Apps Indication:Hypertension Start:31-Aug-2022 Instruction Type:Patient Education Patient Instructions Indication:Inflammatory arthritis Start:24-May-2022 Instruction Type:Provider Instructions for Treatment How to Access Health Informa tion Online using Patient Portal and [employer] Apps Indication:Inflammatory arthritis Start:24-May-2022 Instruction Type:Patient Education Patient Instructions Indication:Fever Start:23-Apr-2022 Instruction Type:Provider Instructions for Treatment How to Access Health Informa tion Online using Patient Portal and [employer] Apps Indication:Fever Start:23-Apr-2022 Instruction Type:Patient Education Patient Instructions Indication:Hypertension Start:15-Mar-2022 Instruction Type:Provider Instructions for Treatment How to Access Health Informa tion Online using Patient Portal and [employer] Apps Indication:Hypertension Start:15-Mar-2022 Instruction Type:Patient Education Patient Instructions Indication:Sore throat Start:03-Mar-2022 Instruction Type:Provider Instructions for Treatment How to Access Health Informa tion Online using Patient Portal and [employer] Apps Indication:Sore throat Start:03-Mar-2022 Instruction Type:Patient Education Patient Instructions Indication:Osteopenia Start:19-Jan-2022 Instruction Type:Provider Instructions for Treatment How to Access Health Informa tion Online using Patient Portal and [employer]rd [employer] Apps Indication:Osteopenia Start:19-Jan-2022 Instruction Type:Patient Education Patient Instructions Indication:Nonsmoker Start:29-Dec-2021 Instruction Type:Provider Instructions for Treatment How to Access Health Informa tion Online using Patient Portal and [employer] Apps Indication:Nonsmoker Start:29-Dec-2021 Instruction Type:Patient Education Patient Instructions Indication:BMI 24.0-24.9, adult Start:30-Nov-2021 Instruction Type:Provider Instructions for Treatment How to Access Health Informa tion Online using Patient Portal and [employer] Apps Indication:BMI 24.0-24.9, adult Start:30-Nov-2021 Instruction Type:Patient Education Patient Instructions Indication:BMI 24.0-24.9, adult Start:04-Nov-2021 Instruction Type:Provider Instructions for Treatment How to Access Health Informa tion Online using Patient Portal and [employer]rd [employer] Apps Indication:BMI 24.0-24.9, adult Start:04-Nov-2021 Instruction Type:Patient Education Patient Instructions Indication:Night sweats Start:06-Jul-2021 Instruction Type:Provider Instructions for Treatment How to Access Health Informa tion Online using Patient Portal and [employer] Apps Indication:Night sweats Start:06-Jul-2021 Instruction Type:Patient Education Patient Instructions Indication:[facility] Start:10-Jun-2021 Instruction Type:Provider Instructions for Treatment How to Access Health Informa tion Online using Patient Portal and [employer] Apps Indication:[facility] Start:10-Jun-2021 Instruction Type:Patient Education Patient Instructions Indication:Nonsmoker Start:01-Jun-2021 Instruction Type:Provider Instructions for Treatment How to Access Health Informa tion Online using Patient Portal and [employer] Apps Indication:Nonsmoker Start:01-Jun-2021 Instruction Type:Patient Education Patient Instructions Indication:Hypertension Start:06-Feb-2021 Instruction Type:Provider Instructions for Treatment How to Access Health Informa tion Online using Patient Portal and [employer] Apps Indication:Hypertension Start:06-Feb-2021 Instruction Type:Patient Education Patient Instructions Indication:Other and unspecified hyperlipidemia Start:28-Apr-2020 Instruction Type:Provider Instructions for Treatment How to Access Health Informa tion Online using Patient Portal and [employer] Apps Indication:Other and unspecified hyperlipidemia Start:28-Apr-2020 Instruction Type:Patient Education How to access health informa tion online Indication:Neuropathy Start:18-Mar-2020 Instruction Type:Patient Education How to access health informa tion online Indication:Neuropathy Start:18-Mar-2020 Instruction Type:Patient Education Patient Instructions Indication:Neuropathy Start:18-Mar-2020 Instruction Type:Provider Instructions for Treatment How to access health informa tion online Indication:Skin tear of right upper extremity Start:02-Jan-2020 Instruction Type:Patient Education How to access health informa tion online - Detail Indication:Skin tear of right upper extremity Start:02-Jan-2020 Instruction Type:Patient Education Patient Instructions Indication:Skin tear of right upper extremity Start:02-Jan-2020 Instruction Type:Provider Instructions for Treatment How to access health informa tion online Indication:BMI 25.0-25.9,adult Start:24-Oct-2019 Instruction Type:Patient Education How to access health informa tion online - Detail Indication:BMI 25.0-25.9,adult Start:24-Oct-2019 Instruction Type:Patient Education Patient Instructions Indication:BMI 25.0-25.9,adult Start:24-Oct-2019 Instruction Type:Provider Instructions for Treatment How to access health informa tion online Indication:Nonsmoker Start:17-Jul-2019 Instruction Type:Patient Education How to access health informa tion online - Detail Indication:Nonsmoker Start:17-Jul-2019 Instruction Type:Patient Education Patient Instructions Indication:Nonsmoker Start:17-Jul-2019 Instruction Type:Provider Instructions for Treatment How to access health informa tion online Indication:Joint pain Start:10-Jul-2019 Instruction Type:Patient Education How to access health informa tion online - Detail Indication:Joint pain Start:10-Jul-2019 Instruction Type:Patient Education Patient Instructions Indication:Joint pain Start:10-Jul-2019 Instruction Type:Provider Instructions for Treatment How to access health informa tion online Indication:Sore throat Start:10-Nov-2015 Instruction Type:Patient Education How to access health informa tion online - Detail Indication:Sore throat Start:10-Nov-2015 Instruction Type:Patient Education Patient Instructions Indication:Sore throat Start:10-Nov-2015 Instruction Type:Provider Instructions for Treatment How to access health informa tion online Indication:PRE-OPERATIVE EXAMINATION, UNSPECIFIED Start:07-Mar-2015 Instruction Type:Patient Education How to access health informa tion online - Detail Indication:PRE-OPERATIVE EXAMINATION, UNSPECIFIED Start:07-Mar-2015 Instruction Type:Patient Education Patient Instructions Indication:PRE-OPERATIVE EXAMINATION, UNSPECIFIED Start:07-Mar-2015 Instruction Type:Provider Instructions for Treatment Patient Instructions Indication:Hypertension Start:08-Jul-2014 Instruction Type:Provider Instructions for Treatment How to access health informa tion online Indication:Other and unspecified hyperlipidemia Start:19-Nov-2013 Instruction Type:Patient Education How to access health informa tion online - Detail Indication:Other and unspecified hyperlipidemia Start:19-Nov-2013 Instruction Type:Patient Education Patient Instructions Indication:GERD (gastroesophageal reflux disease) Start:19-Nov-2013 Instruction Type:Provider Instructions for Treatment Patient Instructions Indication:Impaired Fasting Glucose Start:25-Apr-2013 Instruction Type:Provider Instructions for Treatment Patient Instructions Indication:Hypertension Start:14-Aug-2012 Instruction Type:Provider Instructions for Treatment Patient Instructions Indication:Impaired Fasting Glucose Start:03-Apr-2012 Instruction Type:Provider Instructions for Treatment [facility]; [facility] Work Phone: Instructions* Name Dates Details Patient Instructions Indication:Hypertension Start:31-Aug-2022 Instruction Type:Provider Instructions for Treatment How to Access Health Informa tion Online using Patient Portal and [employer] Apps Indication:Hypertension Start:31-Aug-2022 Instruction Type:Patient Education Patient Instructions Indication:Inflammatory arthritis Start:24-May-2022 Instruction Type:Provider Instructions for Treatment How to Access Health Informa tion Online using Patient Portal and [employer] Apps Indication:Inflammatory arthritis Start:24-May-2022 Instruction Type:Patient Education Patient Instructions Indication:Fever Start:23-Apr-2022 Instruction Type:Provider Instructions for Treatment How to Access Health Informa tion Online using Patient Portal and [employer] Apps Indication:Fever Start:23-Apr-2022 Instruction Type:Patient Education Patient Instructions Indication:Hypertension Start:15-Mar-2022 Instruction Type:Provider Instructions for Treatment How to Access Health Informa tion Online using Patient Portal and [employer] Apps Indication:Hypertension Start:15-Mar-2022 Instruction Type:Patient Education Patient Instructions Indication:Sore throat Start:03-Mar-2022 Instruction Type:Provider Instructions for Treatment How to Access Health Informa tion Online using Patient Portal and [employer] Apps Indication:Sore throat Start:03-Mar-2022 Instruction Type:Patient Education Patient Instructions Indication:Osteopenia Start:19-Jan-2022 Instruction Type:Provider Instructions for Treatment How to Access Health Informa tion Online using Patient Portal and [employer]rd [employer] Apps Indication:Osteopenia Start:19-Jan-2022 Instruction Type:Patient Education Patient Instructions Indication:Nonsmoker Start:29-Dec-2021 Instruction Type:Provider Instructions for Treatment How to Access Health Informa tion Online using Patient Portal and [employer] Apps Indication:Nonsmoker Start:29-Dec-2021 Instruction Type:Patient Education Patient Instructions Indication:BMI 24.0-24.9, adult Start:30-Nov-2021 Instruction Type:Provider Instructions for Treatment How to Access Health Informa tion Online using Patient Portal and [employer] Apps Indication:BMI 24.0-24.9, adult Start:30-Nov-2021 Instruction Type:Patient Education Patient Instructions Indication:BMI 24.0-24.9, adult Start:04-Nov-2021 Instruction Type:Provider Instructions for Treatment How to Access Health Informa tion Online using Patient Portal and [employer] Apps Indication:BMI 24.0-24.9, adult Start:04-Nov-2021 Instruction Type:Patient Education Patient Instructions Indication:Night sweats Start:06-Jul-2021 Instruction Type:Provider Instructions for Treatment How to Access Health Informa tion Online using Patient Portal and [employer] Apps Indication:Night sweats Start:06-Jul-2021 Instruction Type:Patient Education Patient Instructions Indication:[facility] EX[facility] Start:10-Jun-2021 Instruction Type:Provider Instructions for Treatment How to Access Health Informa tion Online using Patient Portal and [employer] Apps Indication:[facility] EX[facility] Start:10-Jun-2021 Instruction Type:Patient Education Patient Instructions Indication:Nonsmoker Start:01-Jun-2021 Instruction Type:Provider Instructions for Treatment How to Access Health Informa tion Online using Patient Portal and [employer] Apps Indication:Nonsmoker Start:01-Jun-2021 Instruction Type:Patient Education Patient Instructions Indication:Hypertension Start:06-Feb-2021 Instruction Type:Provider Instructions for Treatment How to Access Health Informa tion Online using Patient Portal and [employer] Apps Indication:Hypertension Start:06-Feb-2021 Instruction Type:Patient Education Patient Instructions Indication:Other and unspecified hyperlipidemia Start:28-Apr-2020 Instruction Type:Provider Instructions for Treatment How to Access Health Informa tion Online using Patient Portal and [employer] Apps Indication:Other and unspecified hyperlipidemia Start:28-Apr-2020 Instruction Type:Patient Education How to access health informa tion online Indication:Neuropathy Start:18-Mar-2020 Instruction Type:Patient Education How to access health informa tion online Indication:Neuropathy Start:18-Mar-2020 Instruction Type:Patient Education Patient Instructions Indication:Neuropathy Start:18-Mar-2020 Instruction Type:Provider Instructions for Treatment How to access health informa tion online Indication:Skin tear of right upper extremity Start:02-Jan-2020 Instruction Type:Patient Education How to access health informa tion online - Detail Indication:Skin tear of right upper extremity Start:02-Jan-2020 Instruction Type:Patient Education Patient Instructions Indication:Skin tear of right upper extremity Start:02-Jan-2020 Instruction Type:Provider Instructions for Treatment How to access health informa tion online Indication:BMI 25.0-25.9,adult Start:24-Oct-2019 Instruction Type:Patient Education How to access health informa tion online - Detail Indication:BMI 25.0-25.9,adult Start:24-Oct-2019 Instruction Type:Patient Education Patient Instructions Indication:BMI 25.0-25.9,adult Start:24-Oct-2019 Instruction Type:Provider Instructions for Treatment How to access health informa tion online Indication:Nonsmoker Start:17-Jul-2019 Instruction Type:Patient Education How to access health informa tion online - Detail Indication:Nonsmoker Start:17-Jul-2019 Instruction Type:Patient Education Patient Instructions Indication:Nonsmoker Start:17-Jul-2019 Instruction Type:Provider Instructions for Treatment How to access health informa tion online Indication:Joint pain Start:10-Jul-2019 Instruction Type:Patient Education How to access health informa tion online - Detail Indication:Joint pain Start:10-Jul-2019 Instruction Type:Patient Education Patient Instructions Indication:Joint pain Start:10-Jul-2019 Instruction Type:Provider Instructions for Treatment How to access health informa tion online Indication:Sore throat Start:10-Nov-2015 Instruction Type:Patient Education How to access health informa tion online - Detail Indication:Sore throat Start:10-Nov-2015 Instruction Type:Patient Education Patient Instructions Indication:Sore throat Start:10-Nov-2015 Instruction Type:Provider Instructions for Treatment How to access health informa tion online Indication:PRE-OPERATIVE EXAMINATION, UNSPECIFIED Start:07-Mar-2015 Instruction Type:Patient Education How to access health informa tion online - Detail Indication:PRE-OPERATIVE EXAMINATION, UNSPECIFIED Start:07-Mar-2015 Instruction Type:Patient Education Patient Instructions Indication:PRE-OPERATIVE EXAMINATION, UNSPECIFIED Start:07-Mar-2015 Instruction Type:Provider Instructions for Treatment Patient Instructions Indication:Hypertension Start:08-Jul-2014 Instruction Type:Provider Instructions for Treatment How to access health informa tion online Indication:Other and unspecified hyperlipidemia Start:19-Nov-2013 Instruction Type:Patient Education How to access health informa tion online - Detail Indication:Other and unspecified hyperlipidemia Start:19-Nov-2013 Instruction Type:Patient Education Patient Instructions Indication:GERD (gastroesophageal reflux disease) Start:19-Nov-2013 Instruction Type:Provider Instructions for Treatment Patient Instructions Indication:Impaired Fasting Glucose Start:25-Apr-2013 Instruction Type:Provider Instructions for Treatment Patient Instructions Indication:Hypertension Start:14-Aug-2012 Instruction Type:Provider Instructions for Treatment Patient Instructions Indication:Impaired Fasting Glucose Start:03-Apr-2012 Instruction Type:Provider Instructions for Treatment [facility]; [facility] Work Phone: Instructions* Name Dates Details Patient Instructions Indication:BMI 25.0-25.9,adult Start:08-Dec-2022 Instruction Type:Provider Instructions for Treatment How to Access Health Informa tion Online using Patient Portal and [employer] Indication:BMI 25.0-25.9,adult Start:08-Dec-2022 Instruction Type:Patient Education Patient Instructions Indication:Hypertension Start:31-Aug-2022 Instruction Type:Provider Instructions for Treatment How to Access Health Informa tion Online using Patient Portal and [employer] Indication:Hypertension Start:31-Aug-2022 Instruction Type:Patient Education Patient Instructions Indication:Inflammatory arthritis Start:24-May-2022 Instruction Type:Provider Instructions for Treatment How to Access Health Informa tion Online using Patient Portal and [employer] Indication:Inflammatory arthritis Start:24-May-2022 Instruction Type:Patient Education Patient Instructions Indication:Fever Start:23-Apr-2022 Instruction Type:Provider Instructions for Treatment How to Access Health Informa tion Online using Patient Portal and [employer] Indication:Fever Start:23-Apr-2022 Instruction Type:Patient Education Patient Instructions Indication:Hypertension Start:15-Mar-2022 Instruction Type:Provider Instructions for Treatment How to Access Health Informa tion Online using Patient Portal and [employer] Indication:Hypertension Start:15-Mar-2022 Instruction Type:Patient Education Patient Instructions Indication:Sore throat Start:03-Mar-2022 Instruction Type:Provider Instructions for Treatment How to Access Health Informa tion Online using Patient Portal and [employer] Indication:Sore throat Start:03-Mar-2022 Instruction Type:Patient Education Patient Instructions Indication:Osteopenia Start:19-Jan-2022 Instruction Type:Provider Instructions for Treatment How to Access Health Informa tion Online using Patient Portal and [employer] Indication:Osteopenia Start:19-Jan-2022 Instruction Type:Patient Education Patient Instructions Indication:Nonsmoker Start:29-Dec-2021 Instruction Type:Provider Instructions for Treatment How to Access Health Informa tion Online using Patient Portal and [employer] Indication:Nonsmoker Start:29-Dec-2021 Instruction Type:Patient Education Patient Instructions Indication:BMI 24.0-24.9, adult Start:30-Nov-2021 Instruction Type:Provider Instructions for Treatment How to Access Health Informa tion Online using Patient Portal and [employer] Indication:BMI 24.0-24.9, adult Start:30-Nov-2021 Instruction Type:Patient Education Patient Instructions Indication:BMI 24.0-24.9, adult Start:04-Nov-2021 Instruction Type:Provider Instructions for Treatment How to Access Health Informa tion Online using Patient Portal and [employer] Indication:BMI 24.0-24.9, adult Start:04-Nov-2021 Instruction Type:Patient Education Patient Instructions Indication:Night sweats Start:06-Jul-2021 Instruction Type:Provider Instructions for Treatment How to Access Health Informa tion Online using Patient Portal and [employer] Indication:Night sweats Start:06-Jul-2021 Instruction Type:Patient Education Patient Instructions Indication:[facility] EX[facility] Start:10-Jun-2021 Instruction Type:Provider Instructions for Treatment How to Access Health Informa tion Online using Patient Portal and [employer] Indication:[facility] EX[facility] Start:10-Jun-2021 Instruction Type:Patient Education Patient Instructions Indication:Nonsmoker Start:01-Jun-2021 Instruction Type:Provider Instructions for Treatment How to Access Health Informa tion Online using Patient Portal and [employer] Indication:Nonsmoker Start:01-Jun-2021 Instruction Type:Patient Education Patient Instructions Indication:Hypertension Start:06-Feb-2021 Instruction Type:Provider Instructions for Treatment How to Access Health Informa tion Online using Patient Portal and [employer] Indication:Hypertension Start:06-Feb-2021 Instruction Type:Patient Education Patient Instructions Indication:Other and unspecified hyperlipidemia Start:28-Apr-2020 Instruction Type:Provider Instructions for Treatment How to Access Health Informa tion Online using Patient Portal and [employer] Indication:Other and unspecified hyperlipidemia Start:28-Apr-2020 Instruction Type:Patient Education How to access health informa tion online Indication:Neuropathy Start:18-Mar-2020 Instruction Type:Patient Education How to access health informa tion online Indication:Neuropathy Start:18-Mar-2020 Instruction Type:Patient Education Patient Instructions Indication:Neuropathy Start:18-Mar-2020 Instruction Type:Provider Instructions for Treatment How to access health informa tion online Indication:Skin tear of right upper extremity Start:02-Jan-2020 Instruction Type:Patient Education How to access health informa tion online - Detail Indication:Skin tear of right upper extremity Start:02-Jan-2020 Instruction Type:Patient Education Patient Instructions Indication:Skin tear of right upper extremity Start:02-Jan-2020 Instruction Type:Provider Instructions for Treatment How to access health informa tion online Indication:BMI 25.0-25.9,adult Start:24-Oct-2019 Instruction Type:Patient Education How to access health informa tion online - Detail Indication:BMI 25.0-25.9,adult Start:24-Oct-2019 Instruction Type:Patient Education Patient Instructions Indication:BMI 25.0-25.9,adult Start:24-Oct-2019 Instruction Type:Provider Instructions for Treatment How to access health informa tion online Indication:Nonsmoker Start:17-Jul-2019 Instruction Type:Patient Education How to access health informa tion online - Detail Indication:Nonsmoker Start:17-Jul-2019 Instruction Type:Patient Education Patient Instructions Indication:Nonsmoker Start:17-Jul-2019 Instruction Type:Provider Instructions for Treatment How to access health informa tion online Indication:Joint pain Start:10-Jul-2019 Instruction Type:Patient Education How to access health informa tion online - Detail Indication:Joint pain Start:10-Jul-2019 Instruction Type:Patient Education Patient Instructions Indication:Joint pain Start:10-Jul-2019 Instruction Type:Provider Instructions for Treatment How to access health informa tion online Indication:Sore throat Start:10-Nov-2015 Instruction Type:Patient Education How to access health informa tion online - Detail Indication:Sore throat Start:10-Nov-2015 Instruction Type:Patient Education Patient Instructions Indication:Sore throat Start:10-Nov-2015 Instruction Type:Provider Instructions for Treatment How to access health informa tion online Indication:PRE-OPERATIVE EXAMINATION, UNSPECIFIED Start:07-Mar-2015 Instruction Type:Patient Education How to access health informa tion online - Detail Indication:PRE-OPERATIVE EXAMINATION, UNSPECIFIED Start:07-Mar-2015 Instruction Type:Patient Education Patient Instructions Indication:PRE-OPERATIVE EXAMINATION, UNSPECIFIED Start:07-Mar-2015 Instruction Type:Provider Instructions for Treatment Patient Instructions Indication:Hypertension Start:08-Jul-2014 Instruction Type:Provider Instructions for Treatment How to access health informa tion online Indication:Other and unspecified hyperlipidemia Start:19-Nov-2013 Instruction Type:Patient Education How to access health informa tion online - Detail Indication:Other and unspecified hyperlipidemia Start:19-Nov-2013 Instruction Type:Patient Education Patient Instructions Indication:GERD (gastroesophageal reflux disease) Start:19-Nov-2013 Instruction Type:Provider Instructions for Treatment Patient Instructions Indication:Impaired Fasting Glucose Start:25-Apr-2013 Instruction Type:Provider Instructions for Treatment Patient Instructions Indication:Hypertension Start:14-Aug-2012 Instruction Type:Provider Instructions for Treatment Patient Instructions Indication:Impaired Fasting Glucose Start:03-Apr-2012 Instruction Type:Provider Instructions for Treatment [facility] Work Phone: Instructions* Name Dates Details Patient Instructions Indication:BMI 25.0-25.9,adult Start:08-Dec-2022 Instruction Type:Provider Instructions for Treatment How to Access Health Informa tion Online using Patient Portal and [employer] Indication:BMI 25.0-25.9,adult Start:08-Dec-2022 Instruction Type:Patient Education Patient Instructions Indication:Hypertension Start:31-Aug-2022 Instruction Type:Provider Instructions for Treatment How to Access Health Informa tion Online using Patient Portal and [employer] Indication:Hypertension Start:31-Aug-2022 Instruction Type:Patient Education Patient Instructions Indication:Inflammatory arthritis Start:24-May-2022 Instruction Type:Provider Instructions for Treatment How to Access Health Informa tion Online using Patient Portal and [employer] Indication:Inflammatory arthritis Start:24-May-2022 Instruction Type:Patient Education Patient Instructions Indication:Fever Start:23-Apr-2022 Instruction Type:Provider Instructions for Treatment How to Access Health Informa tion Online using Patient Portal and [employer] Indication:Fever Start:23-Apr-2022 Instruction Type:Patient Education Patient Instructions Indication:Hypertension Start:15-Mar-2022 Instruction Type:Provider Instructions for Treatment How to Access Health Informa tion Online using Patient Portal and [employer] Indication:Hypertension Start:15-Mar-2022 Instruction Type:Patient Education Patient Instructions Indication:Sore throat Start:03-Mar-2022 Instruction Type:Provider Instructions for Treatment How to Access Health Informa tion Online using Patient Portal and [employer] Indication:Sore throat Start:03-Mar-2022 Instruction Type:Patient Education Patient Instructions Indication:Osteopenia Start:19-Jan-2022 Instruction Type:Provider Instructions for Treatment How to Access Health Informa tion Online using Patient Portal and [employer] Indication:Osteopenia Start:19-Jan-2022 Instruction Type:Patient Education Patient Instructions Indication:Nonsmoker Start:29-Dec-2021 Instruction Type:Provider Instructions for Treatment How to Access Health Informa tion Online using Patient Portal and [employer] Indication:Nonsmoker Start:29-Dec-2021 Instruction Type:Patient Education Patient Instructions Indication:BMI 24.0-24.9, adult Start:30-Nov-2021 Instruction Type:Provider Instructions for Treatment How to Access Health Informa tion Online using Patient Portal and [employer] Indication:BMI 24.0-24.9, adult Start:30-Nov-2021 Instruction Type:Patient Education Patient Instructions Indication:BMI 24.0-24.9, adult Start:04-Nov-2021 Instruction Type:Provider Instructions for Treatment How to Access Health Informa tion Online using Patient Portal and [employer] Indication:BMI 24.0-24.9, adult Start:04-Nov-2021 Instruction Type:Patient Education Patient Instructions Indication:Night sweats Start:06-Jul-2021 Instruction Type:Provider Instructions for Treatment How to Access Health Informa tion Online using Patient Portal and [employer] Indication:Night sweats Start:06-Jul-2021 Instruction Type:Patient Education Patient Instructions Indication:[facility] Start:10-Jun-2021 Instruction Type:Provider Instructions for Treatment How to Access Health Informa tion Online using Patient Portal and [employer] Indication:[facility] EX[facility] Start:10-Jun-2021 Instruction Type:Patient Education Patient Instructions Indication:Nonsmoker Start:01-Jun-2021 Instruction Type:Provider Instructions for Treatment How to Access Health Informa tion Online using Patient Portal and [employer] Indication:Nonsmoker Start:01-Jun-2021 Instruction Type:Patient Education Patient Instructions Indication:Hypertension Start:06-Feb-2021 Instruction Type:Provider Instructions for Treatment How to Access Health Informa tion Online using Patient Portal and [employer] Indication:Hypertension Start:06-Feb-2021 Instruction Type:Patient Education Patient Instructions Indication:Other and unspecified hyperlipidemia Start:28-Apr-2020 Instruction Type:Provider Instructions for Treatment How to Access Health Informa tion Online using Patient Portal and [employer] Indication:Other and unspecified hyperlipidemia Start:28-Apr-2020 Instruction Type:Patient Education How to access health informa tion online Indication:Neuropathy Start:18-Mar-2020 Instruction Type:Patient Education How to access health informa tion online Indication:Neuropathy Start:18-Mar-2020 Instruction Type:Patient Education Patient Instructions Indication:Neuropathy Start:18-Mar-2020 Instruction Type:Provider Instructions for Treatment How to access health informa tion online Indication:Skin tear of right upper extremity Start:02-Jan-2020 Instruction Type:Patient Education How to access health informa tion online - Detail Indication:Skin tear of right upper extremity Start:02-Jan-2020 Instruction Type:Patient Education Patient Instructions Indication:Skin tear of right upper extremity Start:02-Jan-2020 Instruction Type:Provider Instructions for Treatment How to access health informa tion online Indication:BMI 25.0-25.9,adult Start:24-Oct-2019 Instruction Type:Patient Education How to access health informa tion online - Detail Indication:BMI 25.0-25.9,adult Start:24-Oct-2019 Instruction Type:Patient Education Patient Instructions Indication:BMI 25.0-25.9,adult Start:24-Oct-2019 Instruction Type:Provider Instructions for Treatment How to access health informa tion online Indication:Nonsmoker Start:17-Jul-2019 Instruction Type:Patient Education How to access health informa tion online - Detail Indication:Nonsmoker Start:17-Jul-2019 Instruction Type:Patient Education Patient Instructions Indication:Nonsmoker Start:17-Jul-2019 Instruction Type:Provider Instructions for Treatment How to access health informa tion online Indication:Joint pain Start:10-Jul-2019 Instruction Type:Patient Education How to access health informa tion online - Detail Indication:Joint pain Start:10-Jul-2019 Instruction Type:Patient Education Patient Instructions Indication:Joint pain Start:10-Jul-2019 Instruction Type:Provider Instructions for Treatment How to access health informa tion online Indication:Sore throat Start:10-Nov-2015 Instruction Type:Patient Education How to access health informa tion online - Detail Indication:Sore throat Start:10-Nov-2015 Instruction Type:Patient Education Patient Instructions Indication:Sore throat Start:10-Nov-2015 Instruction Type:Provider Instructions for Treatment How to access health informa tion online Indication:PRE-OPERATIVE EXAMINATION, UNSPECIFIED Start:07-Mar-2015 Instruction Type:Patient Education How to access health informa tion online - Detail Indication:PRE-OPERATIVE EXAMINATION, UNSPECIFIED Start:07-Mar-2015 Instruction Type:Patient Education Patient Instructions Indication:PRE-OPERATIVE EXAMINATION, UNSPECIFIED Start:07-Mar-2015 Instruction Type:Provider Instructions for Treatment Patient Instructions Indication:Hypertension Start:08-Jul-2014 Instruction Type:Provider Instructions for Treatment How to access health informa tion online Indication:Other and unspecified hyperlipidemia Start:19-Nov-2013 Instruction Type:Patient Education How to access health informa tion online - Detail Indication:Other and unspecified hyperlipidemia Start:19-Nov-2013 Instruction Type:Patient Education Patient Instructions Indication:GERD (gastroesophageal reflux disease) Start:19-Nov-2013 Instruction Type:Provider Instructions for Treatment Patient Instructions Indication:Impaired Fasting Glucose Start:25-Apr-2013 Instruction Type:Provider Instructions for Treatment Patient Instructions Indication:Hypertension Start:14-Aug-2012 Instruction Type:Provider Instructions for Treatment Patient Instructions Indication:Impaired Fasting Glucose Start:03-Apr-2012 Instruction Type:Provider Instructions for Treatment [facility]; [facility] Work Phone: progress note No data available for this section [facility] Reason for referral (narrative)No reason for referral information availableWMagruder [facility] Work Phone: Summary note* Lindy Hyde: PERFORM Event Display: Patient Summary Documents Authored Date: [id number] [facility] Family History No Family History Records FoundUnknown Family Member Name Dates Details Father Comments:Prostate cancer Status:Active Mother Comments: of [place] ?etiology Status:Active Unknown Family Member Name Dates Details Father Comments:Prostate cancer Status:Active Mother Comments: of [place] ?etiology Status:Active Unknown Family Member Name Dates Details Father Comments:Prostate cancer Status:Active Mother Comments: of [place] ?etiology Status:Active Unknown Family Member Name Dates Details Father Comments:Prostate cancer Status:Active Mother Comments: of [place] ?etiology Status:Active Unknown Family Member Name Dates Details Father Comments:Prostate cancer Status:Active Mother Comments: of [place] ?etiology Status:Active Unknown Family Member Name Dates Details Father Comments:Prostate cancer Status:Active Mother Comments: of [place] ?etiology Status:Active Unknown Family Member Name Dates Details Father Comments:Prostate cancer Status:Active Mother Comments: of [place] ?etiology Status:Active Unknown Family Member Name Dates Details Father Comments:Prostate cancer Status:Active Mother Comments: of [place] ?etiology Status:Active Unknown Family Member Name Dates Details Father Comments:Prostate cancer Status:Active Mother Comments: of [place] ?etiology Status:Active Unknown Family Member Name Dates Details Father Comments:Prostate cancer Status:Active Mother Comments: of [place] ?etiology Status:Active Unknown Family Member Name Dates Details Father Comments:Prostate cancer Status:Active Mother Comments: of [place] ?etiology Status:Active Unknown Family Member Name Dates Details Father Comments:Prostate cancer Status:Active Mother Comments: of [place] ?etiology Status:Active Unknown Family Member Name Dates Details Father Comments:Prostate cancer Status:Active Mother Comments: of [place] ?etiology Status:Active Unknown Family Member Name Dates Details Father Comments:Prostate cancer Status:Active Mother Comments: of [place] ?etiology Status:Active Unknown Family Member Name Dates Details Father Comments:Prostate cancer Status:Active Mother Comments: of [place] ?etiology Status:Active Unknown Family Member Name Dates Details Father Comments:Prostate cancer Status:Active Mother Comments: of [place] ?etiology Status:Active Unknown Family Member Name Dates Details Father Comments:Prostate cancer Status:Active Mother Comments: of [place] ?etiology Status:Active Unknown Family Member Name Dates Details Father Comments:Prostate cancer Status:Active Mother Comments: of [place] ?etiology Status:Active Unknown Family Member Name Dates Details Father Comments:Prostate cancer Status:Active Mother Comments: of [place] ?etiology Status:Active Unknown Family Member Name Dates Details Father Comments:Prostate cancer Status:Active Mother Comments: of [place] ?etiology Status:Active Unknown Family Member Name Dates Details Father Comments:Prostate cancer Status:Active Mother Comments: of [place] ?etiology Status:Active Unknown Family Member Name Dates Details Father Comments:Prostate cancer Status:Active Mother Comments: of [place] ?etiology Status:Active Unknown Family Member Name Dates Details Father Comments:Prostate cancer Status:Active Mother Comments: of [place] ?etiology Status:Active Unknown Family Member Name Dates Details Father Comments:Prostate cancer Status:Active Mother Comments: of [place] ?etiology Status:Active Relationship Condition Age at [place] Recorded Date/T erasmo father Malignant neoplasm Unknown mother Hypertension Unknown Myocardial infarction Unknown Unknown Family Member Name Dates Details Father Comments:Prostate cancer Status:Active Mother Comments: of [place] ?etiology Status:Active Unknown Family Member Name Dates Details Father Comments:Prostate cancer Status:Active Mother Comments: of [place] ?etiology Status:Active Unknown Family Member Name Dates Details Father Comments:Prostate cancer Status:Active Mother Comments: of [place] ?etiology Status:Active Unknown Family Member Name Dates Details Father Comments:Prostate cancer Status:Active Mother Comments: of [place] ?etiology Status:Active Unknown Family Member Name Dates Details Father Comments:Prostate cancer Status:Active Mother Comments: of [place] ?etiology Status:Active Unknown Family Member Name Dates Details Father Comments:Prostate cancer Status:Active Mother Comments: of [place] ?etiology Status:Active Unknown Family Member Name Dates Details Father Comments:Prostate cancer Status:Active Mother Comments: of [place] ?etiology Status:Active Unknown Family Member Name Dates Details Father Comments:Prostate cancer Status:Active Mother Comments: of [place] ?etiology Status:Active Unknown Family Member Name Dates Details Father Comments:Prostate cancer Status:Active Mother Comments: of [place] ?etiology Status:Active Unknown Family Member Name Dates Details Father Comments:Prostate cancer Status:Active Mother Comments: of [place] ?etiology Status:Active Unknown Family Member Name Dates Details Father Comments:Prostate cancer Status:Active Mother Comments: of [place] ?etiology Status:Active Unknown Family Member Name Dates Details Father Comments:Prostate cancer Status:Active Mother Comments: of [place] ?etiology Status:Active Unknown Family Member Name Dates Details Father Comments:Prostate cancer Status:Active Mother Comments: of [place] ?etiology Status:Active Unknown Family Member Name Dates Details Father Comments:Prostate cancer Status:Active Mother Comments: of [place] ?etiology Status:Active Unknown Family Member Name Dates Details Father Comments:Prostate cancer Status:Active Mother Comments: of [place] ?etiology Status:Active Unknown Family Member Name Dates Details Father Comments:Prostate cancer Status:Active Mother Comments: of [place] ?etiology Status:Active Unknown Family Member Name Dates Details Father Comments:Prostate cancer Status:Active Mother Comments: of [place] ?etiology Status:Active Unknown Family Member Name Dates Details Father Comments:Prostate cancer Status:Active Mother Comments: of [place] ?etiology Status:Active Unknown Family Member Name Dates Details Father Comments:Prostate cancer Status:Active Mother Comments: of [place] ?etiology Status:Active Unknown Family Member Name Dates Details Father Comments:Prostate cancer Status:Active Mother Comments: of [place] ?etiology Status:Active Unknown Family Member Name Dates Details Father Comments:Prostate cancer Status:Active Mother Comments: of [place] ?etiology Status:Active Unknown Family Member Name Dates Details Father Comments:Prostate cancer Status:Active Mother Comments: of [place] ?etiology Status:Active Unknown Family Member Name Dates Details Father Comments:Prostate cancer Status:Active Mother Comments: of [place] ?etiology Status:Active Unknown Family Member Name Dates Details Father Comments:Prostate cancer Status:Active Mother Comments: of [place] ?etiology Status:Active Unknown Family Member Name Dates Details Father Comments:Prostate cancer Status:Active Mother Comments: of [place] ?etiology Status:Active Unknown Family Member Name Dates Details Father Comments:Prostate cancer Status:Active Mother Comments: of [place] ?etiology Status:Active Unknown Family Member Name Dates Details Father Comments:Prostate cancer Status:Active Mother Comments: of [place] ?etiology Status:Active Unknown Family Member Name Dates Details Father Comments:Prostate cancer Status:Active Mother Comments: of [place] ?etiology Status:Active Unknown Family Member Name Dates Details Father Comments:Prostate cancer Status:Active Mother Comments: of pulmonary H [place] ?etiology Status:Active Unknown Family Member Name Dates Details Father Comments:Prostate cancer Status:Active Mother Comments: of pulmonary [place] ?etiology Status:Active Unknown Family Member Name Dates Details Father Comments:Prostate cancer Status:Active Mother Comments: of pulmonary [place] ?etiology Status:Active Unknown Family Member Name Dates Details Father Comments:Prostate cancer Status:Active Mother Comments: of pulmonary [place] ?etiology Status:Active Unknown Family Member Name Dates Details Father Comments:Prostate cancer Status:Active Mother Comments: of pulmonary [place] ?etiology Status:Active Instructions Name Dates Details How to access health informa tion online Indication:Nonsmoker Start:17-Jul-2019 Instruction Type:Patient Education How to access health informa tion online - Detail Indication:Nonsmoker Start:17-Jul-2019 Instruction Type:Patient Education Patient Instructions Indication:Nonsmoker Start:17-Jul-2019 Instruction Type:Provider Instructions for Treatment How to access health informa tion online Indication:Joint pain Start:10-Jul-2019 Instruction Type:Patient Education How to access health informa tion online - Detail Indication:Joint pain Start:10-Jul-2019 Instruction Type:Patient Education Patient Instructions Indication:Joint pain Start:10-Jul-2019 Instruction Type:Provider Instructions for Treatment How to access health informa tion online Indication:Sore throat Start:10-Nov-2015 Instruction Type:Patient Education How to access health informa tion online - Detail Indication:Sore throat Start:10-Nov-2015 Instruction Type:Patient Education Patient Instructions Indication:Sore throat Start:10-Nov-2015 Instruction Type:Provider Instructions for Treatment How to access health informa tion online Indication:PRE-OPERATIVE EXAMINATION, UNSPECIFIED Start:07-Mar-2015 Instruction Type:Patient Education How to access health informa tion online - Detail Indication:PRE-OPERATIVE EXAMINATION, UNSPECIFIED Start:07-Mar-2015 Instruction Type:Patient Education Patient Instructions Indication:PRE-OPERATIVE EXAMINATION, UNSPECIFIED Start:07-Mar-2015 Instruction Type:Provider Instructions for Treatment Patient Instructions Indication:Hypertension Start:08-Jul-2014 Instruction Type:Provider Instructions for Treatment How to access health informa tion online Indication:Other and unspecified hyperlipidemia Start:19-Nov-2013 Instruction Type:Patient Education How to access health informa tion online - Detail Indication:Other and unspecified hyperlipidemia Start:19-Nov-2013 Instruction Type:Patient Education Patient Instructions Indication:GERD (gastroesophageal reflux disease) Start:19-Nov-2013 Instruction Type:Provider Instructions for Treatment Patient Instructions Indication:Impaired Fasting Glucose Start:25-Apr-2013 Instruction Type:Provider Instructions for Treatment Patient Instructions Indication:Hypertension Start:14-Aug-2012 Instruction Type:Provider Instructions for Treatment Patient Instructions Indication:Impaired Fasting Glucose Start:03-Apr-2012 Instruction Type:Provider Instructions for Treatment Name Dates Details How to access health informa tion online Indication:BMI 25.0-25.9,adult Start:24-Oct-2019 Instruction Type:Patient Education How to access health informa tion online - Detail Indication:BMI 25.0-25.9,adult Start:24-Oct-2019 Instruction Type:Patient Education Patient Instructions Indication:BMI 25.0-25.9,adult Start:24-Oct-2019 Instruction Type:Provider Instructions for Treatment How to access health informa tion online Indication:Nonsmoker Start:17-Jul-2019 Instruction Type:Patient Education How to access health informa tion online - Detail Indication:Nonsmoker Start:17-Jul-2019 Instruction Type:Patient Education Patient Instructions Indication:Nonsmoker Start:17-Jul-2019 Instruction Type:Provider Instructions for Treatment How to access health informa tion online Indication:Joint pain Start:10-Jul-2019 Instruction Type:Patient Education How to access health informa tion online - Detail Indication:Joint pain Start:10-Jul-2019 Instruction Type:Patient Education Patient Instructions Indication:Joint pain Start:10-Jul-2019 Instruction Type:Provider Instructions for Treatment How to access health informa tion online Indication:Sore throat Start:10-Nov-2015 Instruction Type:Patient Education How to access health informa tion online - Detail Indication:Sore throat Start:10-Nov-2015 Instruction Type:Patient Education Patient Instructions Indication:Sore throat Start:10-Nov-2015 Instruction Type:Provider Instructions for Treatment How to access health informa tion online Indication:PRE-OPERATIVE EXAMINATION, UNSPECIFIED Start:07-Mar-2015 Instruction Type:Patient Education How to access health informa tion online - Detail Indication:PRE-OPERATIVE EXAMINATION, UNSPECIFIED Start:07-Mar-2015 Instruction Type:Patient Education Patient Instructions Indication:PRE-OPERATIVE EXAMINATION, UNSPECIFIED Start:07-Mar-2015 Instruction Type:Provider Instructions for Treatment Patient Instructions Indication:Hypertension Start:08-Jul-2014 Instruction Type:Provider Instructions for Treatment How to access health informa tion online Indication:Other and unspecified hyperlipidemia Start:19-Nov-2013 Instruction Type:Patient Education How to access health informa tion online - Detail Indication:Other and unspecified hyperlipidemia Start:19-Nov-2013 Instruction Type:Patient Education Patient Instructions Indication:GERD (gastroesophageal reflux disease) Start:19-Nov-2013 Instruction Type:Provider Instructions for Treatment Patient Instructions Indication:Impaired Fasting Glucose Start:25-Apr-2013 Instruction Type:Provider Instructions for Treatment Patient Instructions Indication:Hypertension Start:14-Aug-2012 Instruction Type:Provider Instructions for Treatment Patient Instructions Indication:Impaired Fasting Glucose Start:03-Apr-2012 Instruction Type:Provider Instructions for Treatment Name Dates Details How to access health informa tion online Indication:BMI 25.0-25.9,adult Start:24-Oct-2019 Instruction Type:Patient Education How to access health informa tion online - Detail Indication:BMI 25.0-25.9,adult Start:24-Oct-2019 Instruction Type:Patient Education Patient Instructions Indication:BMI 25.0-25.9,adult Start:24-Oct-2019 Instruction Type:Provider Instructions for Treatment How to access health informa tion online Indication:Nonsmoker Start:17-Jul-2019 Instruction Type:Patient Education How to access health informa tion online - Detail Indication:Nonsmoker Start:17-Jul-2019 Instruction Type:Patient Education Patient Instructions Indication:Nonsmoker Start:17-Jul-2019 Instruction Type:Provider Instructions for Treatment How to access health informa tion online Indication:Joint pain Start:10-Jul-2019 Instruction Type:Patient Education How to access health informa tion online - Detail Indication:Joint pain Start:10-Jul-2019 Instruction Type:Patient Education Patient Instructions Indication:Joint pain Start:10-Jul-2019 Instruction Type:Provider Instructions for Treatment How to access health informa tion online Indication:Sore throat Start:10-Nov-2015 Instruction Type:Patient Education How to access health informa tion online - Detail Indication:Sore throat Start:10-Nov-2015 Instruction Type:Patient Education Patient Instructions Indication:Sore throat Start:10-Nov-2015 Instruction Type:Provider Instructions for Treatment How to access health informa tion online Indication:PRE-OPERATIVE EXAMINATION, UNSPECIFIED Start:07-Mar-2015 Instruction Type:Patient Education How to access health informa tion online - Detail Indication:PRE-OPERATIVE EXAMINATION, UNSPECIFIED Start:07-Mar-2015 Instruction Type:Patient Education Patient Instructions Indication:PRE-OPERATIVE EXAMINATION, UNSPECIFIED Start:07-Mar-2015 Instruction Type:Provider Instructions for Treatment Patient Instructions Indication:Hypertension Start:08-Jul-2014 Instruction Type:Provider Instructions for Treatment How to access health informa tion online Indication:Other and unspecified hyperlipidemia Start:19-Nov-2013 Instruction Type:Patient Education How to access health informa tion online - Detail Indication:Other and unspecified hyperlipidemia Start:19-Nov-2013 Instruction Type:Patient Education Patient Instructions Indication:GERD (gastroesophageal reflux disease) Start:19-Nov-2013 Instruction Type:Provider Instructions for Treatment Patient Instructions Indication:Impaired Fasting Glucose Start:25-Apr-2013 Instruction Type:Provider Instructions for Treatment Patient Instructions Indication:Hypertension Start:14-Aug-2012 Instruction Type:Provider Instructions for Treatment Patient Instructions Indication:Impaired Fasting Glucose Start:03-Apr-2012 Instruction Type:Provider Instructions for Treatment Name Dates Details How to access health informa tion online Indication:BMI 25.0-25.9,adult Start:24-Oct-2019 Instruction Type:Patient Education How to access health informa tion online - Detail Indication:BMI 25.0-25.9,adult Start:24-Oct-2019 Instruction Type:Patient Education Patient Instructions Indication:BMI 25.0-25.9,adult Start:24-Oct-2019 Instruction Type:Provider Instructions for Treatment How to access health informa tion online Indication:Nonsmoker Start:17-Jul-2019 Instruction Type:Patient Education How to access health informa tion online - Detail Indication:Nonsmoker Start:17-Jul-2019 Instruction Type:Patient Education Patient Instructions Indication:Nonsmoker Start:17-Jul-2019 Instruction Type:Provider Instructions for Treatment How to access health informa tion online Indication:Joint pain Start:10-Jul-2019 Instruction Type:Patient Education How to access health informa tion online - Detail Indication:Joint pain Start:10-Jul-2019 Instruction Type:Patient Education Patient Instructions Indication:Joint pain Start:10-Jul-2019 Instruction Type:Provider Instructions for Treatment How to access health informa tion online Indication:Sore throat Start:10-Nov-2015 Instruction Type:Patient Education How to access health informa tion online - Detail Indication:Sore throat Start:10-Nov-2015 Instruction Type:Patient Education Patient Instructions Indication:Sore throat Start:10-Nov-2015 Instruction Type:Provider Instructions for Treatment How to access health informa tion online Indication:PRE-OPERATIVE EXAMINATION, UNSPECIFIED Start:07-Mar-2015 Instruction Type:Patient Education How to access health informa tion online - Detail Indication:PRE-OPERATIVE EXAMINATION, UNSPECIFIED Start:07-Mar-2015 Instruction Type:Patient Education Patient Instructions Indication:PRE-OPERATIVE EXAMINATION, UNSPECIFIED Start:07-Mar-2015 Instruction Type:Provider Instructions for Treatment Patient Instructions Indication:Hypertension Start:08-Jul-2014 Instruction Type:Provider Instructions for Treatment How to access health informa tion online Indication:Other and unspecified hyperlipidemia Start:19-Nov-2013 Instruction Type:Patient Education How to access health informa tion online - Detail Indication:Other and unspecified hyperlipidemia Start:19-Nov-2013 Instruction Type:Patient Education Patient Instructions Indication:GERD (gastroesophageal reflux disease) Start:19-Nov-2013 Instruction Type:Provider Instructions for Treatment Patient Instructions Indication:Impaired Fasting Glucose Start:25-Apr-2013 Instruction Type:Provider Instructions for Treatment Patient Instructions Indication:Hypertension Start:14-Aug-2012 Instruction Type:Provider Instructions for Treatment Patient Instructions Indication:Impaired Fasting Glucose Start:03-Apr-2012 Instruction Type:Provider Instructions for Treatment Name Dates Details How to access health informa tion online Indication:BMI 25.0-25.9,adult Start:24-Oct-2019 Instruction Type:Patient Education How to access health informa tion online - Detail Indication:BMI 25.0-25.9,adult Start:24-Oct-2019 Instruction Type:Patient Education Patient Instructions Indication:BMI 25.0-25.9,adult Start:24-Oct-2019 Instruction Type:Provider Instructions for Treatment How to access health informa tion online Indication:Nonsmoker Start:17-Jul-2019 Instruction Type:Patient Education How to access health informa tion online - Detail Indication:Nonsmoker Start:17-Jul-2019 Instruction Type:Patient Education Patient Instructions Indication:Nonsmoker Start:17-Jul-2019 Instruction Type:Provider Instructions for Treatment How to access health informa tion online Indication:Joint pain Start:10-Jul-2019 Instruction Type:Patient Education How to access health informa tion online - Detail Indication:Joint pain Start:10-Jul-2019 Instruction Type:Patient Education Patient Instructions Indication:Joint pain Start:10-Jul-2019 Instruction Type:Provider Instructions for Treatment How to access health informa tion online Indication:Sore throat Start:10-Nov-2015 Instruction Type:Patient Education How to access health informa tion online - Detail Indication:Sore throat Start:10-Nov-2015 Instruction Type:Patient Education Patient Instructions Indication:Sore throat Start:10-Nov-2015 Instruction Type:Provider Instructions for Treatment How to access health informa tion online Indication:PRE-OPERATIVE EXAMINATION, UNSPECIFIED Start:07-Mar-2015 Instruction Type:Patient Education How to access health informa tion online - Detail Indication:PRE-OPERATIVE EXAMINATION, UNSPECIFIED Start:07-Mar-2015 Instruction Type:Patient Education Patient Instructions Indication:PRE-OPERATIVE EXAMINATION, UNSPECIFIED Start:07-Mar-2015 Instruction Type:Provider Instructions for Treatment Patient Instructions Indication:Hypertension Start:08-Jul-2014 Instruction Type:Provider Instructions for Treatment How to access health informa tion online Indication:Other and unspecified hyperlipidemia Start:19-Nov-2013 Instruction Type:Patient Education How to access health informa tion online - Detail Indication:Other and unspecified hyperlipidemia Start:19-Nov-2013 Instruction Type:Patient Education Patient Instructions Indication:GERD (gastroesophageal reflux disease) Start:19-Nov-2013 Instruction Type:Provider Instructions for Treatment Patient Instructions Indication:Impaired Fasting Glucose Start:25-Apr-2013 Instruction Type:Provider Instructions for Treatment Patient Instructions Indication:Hypertension Start:14-Aug-2012 Instruction Type:Provider Instructions for Treatment Patient Instructions Indication:Impaired Fasting Glucose Start:03-Apr-2012 Instruction Type:Provider Instructions for Treatment Name Dates Details How to access health informa tion online Indication:BMI 25.0-25.9,adult Start:24-Oct-2019 Instruction Type:Patient Education How to access health informa tion online - Detail Indication:BMI 25.0-25.9,adult Start:24-Oct-2019 Instruction Type:Patient Education Patient Instructions Indication:BMI 25.0-25.9,adult Start:24-Oct-2019 Instruction Type:Provider Instructions for Treatment How to access health informa tion online Indication:Nonsmoker Start:17-Jul-2019 Instruction Type:Patient Education How to access health informa tion online - Detail Indication:Nonsmoker Start:17-Jul-2019 Instruction Type:Patient Education Patient Instructions Indication:Nonsmoker Start:17-Jul-2019 Instruction Type:Provider Instructions for Treatment How to access health informa tion online Indication:Joint pain Start:10-Jul-2019 Instruction Type:Patient Education How to access health informa tion online - Detail Indication:Joint pain Start:10-Jul-2019 Instruction Type:Patient Education Patient Instructions Indication:Joint pain Start:10-Jul-2019 Instruction Type:Provider Instructions for Treatment How to access health informa tion online Indication:Sore throat Start:10-Nov-2015 Instruction Type:Patient Education How to access health informa tion online - Detail Indication:Sore throat Start:10-Nov-2015 Instruction Type:Patient Education Patient Instructions Indication:Sore throat Start:10-Nov-2015 Instruction Type:Provider Instructions for Treatment How to access health informa tion online Indication:PRE-OPERATIVE EXAMINATION, UNSPECIFIED Start:07-Mar-2015 Instruction Type:Patient Education How to access health informa tion online - Detail Indication:PRE-OPERATIVE EXAMINATION, UNSPECIFIED Start:07-Mar-2015 Instruction Type:Patient Education Patient Instructions Indication:PRE-OPERATIVE EXAMINATION, UNSPECIFIED Start:07-Mar-2015 Instruction Type:Provider Instructions for Treatment Patient Instructions Indication:Hypertension Start:08-Jul-2014 Instruction Type:Provider Instructions for Treatment How to access health informa tion online Indication:Other and unspecified hyperlipidemia Start:19-Nov-2013 Instruction Type:Patient Education How to access health informa tion online - Detail Indication:Other and unspecified hyperlipidemia Start:19-Nov-2013 Instruction Type:Patient Education Patient Instructions Indication:GERD (gastroesophageal reflux disease) Start:19-Nov-2013 Instruction Type:Provider Instructions for Treatment Patient Instructions Indication:Impaired Fasting Glucose Start:25-Apr-2013 Instruction Type:Provider Instructions for Treatment Patient Instructions Indication:Hypertension Start:14-Aug-2012 Instruction Type:Provider Instructions for Treatment Patient Instructions Indication:Impaired Fasting Glucose Start:03-Apr-2012 Instruction Type:Provider Instructions for Treatment Name Dates Details How to access health informa tion online Indication:BMI 25.0-25.9,adult Start:24-Oct-2019 Instruction Type:Patient Education How to access health informa tion online - Detail Indication:BMI 25.0-25.9,adult Start:24-Oct-2019 Instruction Type:Patient Education Patient Instructions Indication:BMI 25.0-25.9,adult Start:24-Oct-2019 Instruction Type:Provider Instructions for Treatment How to access health informa tion online Indication:Nonsmoker Start:17-Jul-2019 Instruction Type:Patient Education How to access health informa tion online - Detail Indication:Nonsmoker Start:17-Jul-2019 Instruction Type:Patient Education Patient Instructions Indication:Nonsmoker Start:17-Jul-2019 Instruction Type:Provider Instructions for Treatment How to access health informa tion online Indication:Joint pain Start:10-Jul-2019 Instruction Type:Patient Education How to access health informa tion online - Detail Indication:Joint pain Start:10-Jul-2019 Instruction Type:Patient Education Patient Instructions Indication:Joint pain Start:10-Jul-2019 Instruction Type:Provider Instructions for Treatment How to access health informa tion online Indication:Sore throat Start:10-Nov-2015 Instruction Type:Patient Education How to access health informa tion online - Detail Indication:Sore throat Start:10-Nov-2015 Instruction Type:Patient Education Patient Instructions Indication:Sore throat Start:10-Nov-2015 Instruction Type:Provider Instructions for Treatment How to access health informa tion online Indication:PRE-OPERATIVE EXAMINATION, UNSPECIFIED Start:07-Mar-2015 Instruction Type:Patient Education How to access health informa tion online - Detail Indication:PRE-OPERATIVE EXAMINATION, UNSPECIFIED Start:07-Mar-2015 Instruction Type:Patient Education Patient Instructions Indication:PRE-OPERATIVE EXAMINATION, UNSPECIFIED Start:07-Mar-2015 Instruction Type:Provider Instructions for Treatment Patient Instructions Indication:Hypertension Start:08-Jul-2014 Instruction Type:Provider Instructions for Treatment How to access health informa tion online Indication:Other and unspecified hyperlipidemia Start:19-Nov-2013 Instruction Type:Patient Education How to access health informa tion online - Detail Indication:Other and unspecified hyperlipidemia Start:19-Nov-2013 Instruction Type:Patient Education Patient Instructions Indication:GERD (gastroesophageal reflux disease) Start:19-Nov-2013 Instruction Type:Provider Instructions for Treatment Patient Instructions Indication:Impaired Fasting Glucose Start:25-Apr-2013 Instruction Type:Provider Instructions for Treatment Patient Instructions Indication:Hypertension Start:14-Aug-2012 Instruction Type:Provider Instructions for Treatment Patient Instructions Indication:Impaired Fasting Glucose Start:03-Apr-2012 Instruction Type:Provider Instructions for Treatment Name Dates Details How to access health informa tion online Indication:BMI 25.0-25.9,adult Start:24-Oct-2019 Instruction Type:Patient Education How to access health informa tion online - Detail Indication:BMI 25.0-25.9,adult Start:24-Oct-2019 Instruction Type:Patient Education Patient Instructions Indication:BMI 25.0-25.9,adult Start:24-Oct-2019 Instruction Type:Provider Instructions for Treatment How to access health informa tion online Indication:Nonsmoker Start:17-Jul-2019 Instruction Type:Patient Education How to access health informa tion online - Detail Indication:Nonsmoker Start:17-Jul-2019 Instruction Type:Patient Education Patient Instructions Indication:Nonsmoker Start:17-Jul-2019 Instruction Type:Provider Instructions for Treatment How to access health informa tion online Indication:Joint pain Start:10-Jul-2019 Instruction Type:Patient Education How to access health informa tion online - Detail Indication:Joint pain Start:10-Jul-2019 Instruction Type:Patient Education Patient Instructions Indication:Joint pain Start:10-Jul-2019 Instruction Type:Provider Instructions for Treatment How to access health informa tion online Indication:Sore throat Start:10-Nov-2015 Instruction Type:Patient Education How to access health informa tion online - Detail Indication:Sore throat Start:10-Nov-2015 Instruction Type:Patient Education Patient Instructions Indication:Sore throat Start:10-Nov-2015 Instruction Type:Provider Instructions for Treatment How to access health informa tion online Indication:PRE-OPERATIVE EXAMINATION, UNSPECIFIED Start:07-Mar-2015 Instruction Type:Patient Education How to access health informa tion online - Detail Indication:PRE-OPERATIVE EXAMINATION, UNSPECIFIED Start:07-Mar-2015 Instruction Type:Patient Education Patient Instructions Indication:PRE-OPERATIVE EXAMINATION, UNSPECIFIED Start:07-Mar-2015 Instruction Type:Provider Instructions for Treatment Patient Instructions Indication:Hypertension Start:08-Jul-2014 Instruction Type:Provider Instructions for Treatment How to access health informa tion online Indication:Other and unspecified hyperlipidemia Start:19-Nov-2013 Instruction Type:Patient Education How to access health informa tion online - Detail Indication:Other and unspecified hyperlipidemia Start:19-Nov-2013 Instruction Type:Patient Education Patient Instructions Indication:GERD (gastroesophageal reflux disease) Start:19-Nov-2013 Instruction Type:Provider Instructions for Treatment Patient Instructions Indication:Impaired Fasting Glucose Start:25-Apr-2013 Instruction Type:Provider Instructions for Treatment Patient Instructions Indication:Hypertension Start:14-Aug-2012 Instruction Type:Provider Instructions for Treatment Patient Instructions Indication:Impaired Fasting Glucose Start:03-Apr-2012 Instruction Type:Provider Instructions for Treatment Name Dates Details How to access health informa tion online Indication:Unspecified Diagnosis Start:02-Jan-2020 Instruction Type:Patient Education How to access health informa tion online - Detail Indication:Unspecified Diagnosis Start:02-Jan-2020 Instruction Type:Patient Education Patient Instructions Indication:Unspecified Diagnosis Start:02-Jan-2020 Instruction Type:Provider Instructions for Treatment How to access health informa tion online Indication:BMI 25.0-25.9,adult Start:24-Oct-2019 Instruction Type:Patient Education How to access health informa tion online - Detail Indication:BMI 25.0-25.9,adult Start:24-Oct-2019 Instruction Type:Patient Education Patient Instructions Indication:BMI 25.0-25.9,adult Start:24-Oct-2019 Instruction Type:Provider Instructions for Treatment How to access health informa tion online Indication:Nonsmoker Start:17-Jul-2019 Instruction Type:Patient Education How to access health informa tion online - Detail Indication:Nonsmoker Start:17-Jul-2019 Instruction Type:Patient Education Patient Instructions Indication:Nonsmoker Start:17-Jul-2019 Instruction Type:Provider Instructions for Treatment How to access health informa tion online Indication:Joint pain Start:10-Jul-2019 Instruction Type:Patient Education How to access health informa tion online - Detail Indication:Joint pain Start:10-Jul-2019 Instruction Type:Patient Education Patient Instructions Indication:Joint pain Start:10-Jul-2019 Instruction Type:Provider Instructions for Treatment How to access health informa tion online Indication:Sore throat Start:10-Nov-2015 Instruction Type:Patient Education How to access health informa tion online - Detail Indication:Sore throat Start:10-Nov-2015 Instruction Type:Patient Education Patient Instructions Indication:Sore throat Start:10-Nov-2015 Instruction Type:Provider Instructions for Treatment How to access health informa tion online Indication:PRE-OPERATIVE EXAMINATION, UNSPECIFIED Start:07-Mar-2015 Instruction Type:Patient Education How to access health informa tion online - Detail Indication:PRE-OPERATIVE EXAMINATION, UNSPECIFIED Start:07-Mar-2015 Instruction Type:Patient Education Patient Instructions Indication:PRE-OPERATIVE EXAMINATION, UNSPECIFIED Start:07-Mar-2015 Instruction Type:Provider Instructions for Treatment Patient Instructions Indication:Hypertension Start:08-Jul-2014 Instruction Type:Provider Instructions for Treatment How to access health informa tion online Indication:Other and unspecified hyperlipidemia Start:19-Nov-2013 Instruction Type:Patient Education How to access health informa tion online - Detail Indication:Other and unspecified hyperlipidemia Start:19-Nov-2013 Instruction Type:Patient Education Patient Instructions Indication:GERD (gastroesophageal reflux disease) Start:19-Nov-2013 Instruction Type:Provider Instructions for Treatment Patient Instructions Indication:Impaired Fasting Glucose Start:25-Apr-2013 Instruction Type:Provider Instructions for Treatment Patient Instructions Indication:Hypertension Start:14-Aug-2012 Instruction Type:Provider Instructions for Treatment Patient Instructions Indication:Impaired Fasting Glucose Start:03-Apr-2012 Instruction Type:Provider Instructions for Treatment Name Dates Details How to access health informa tion online Indication:Skin tear of right upper extremity Start:02-Jan-2020 Instruction Type:Patient Education How to access health informa tion online - Detail Indication:Skin tear of right upper extremity Start:02-Jan-2020 Instruction Type:Patient Education Patient Instructions Indication:Skin tear of right upper extremity Start:02-Jan-2020 Instruction Type:Provider Instructions for Treatment How to access health informa tion online Indication:BMI 25.0-25.9,adult Start:24-Oct-2019 Instruction Type:Patient Education How to access health informa tion online - Detail Indication:BMI 25.0-25.9,adult Start:24-Oct-2019 Instruction Type:Patient Education Patient Instructions Indication:BMI 25.0-25.9,adult Start:24-Oct-2019 Instruction Type:Provider Instructions for Treatment How to access health informa tion online Indication:Nonsmoker Start:17-Jul-2019 Instruction Type:Patient Education How to access health informa tion online - Detail Indication:Nonsmoker Start:17-Jul-2019 Instruction Type:Patient Education Patient Instructions Indication:Nonsmoker Start:17-Jul-2019 Instruction Type:Provider Instructions for Treatment How to access health informa tion online Indication:Joint pain Start:10-Jul-2019 Instruction Type:Patient Education How to access health informa tion online - Detail Indication:Joint pain Start:10-Jul-2019 Instruction Type:Patient Education Patient Instructions Indication:Joint pain Start:10-Jul-2019 Instruction Type:Provider Instructions for Treatment How to access health informa tion online Indication:Sore throat Start:10-Nov-2015 Instruction Type:Patient Education How to access health informa tion online - Detail Indication:Sore throat Start:10-Nov-2015 Instruction Type:Patient Education Patient Instructions Indication:Sore throat Start:10-Nov-2015 Instruction Type:Provider Instructions for Treatment How to access health informa tion online Indication:PRE-OPERATIVE EXAMINATION, UNSPECIFIED Start:07-Mar-2015 Instruction Type:Patient Education How to access health informa tion online - Detail Indication:PRE-OPERATIVE EXAMINATION, UNSPECIFIED Start:07-Mar-2015 Instruction Type:Patient Education Patient Instructions Indication:PRE-OPERATIVE EXAMINATION, UNSPECIFIED Start:07-Mar-2015 Instruction Type:Provider Instructions for Treatment Patient Instructions Indication:Hypertension Start:08-Jul-2014 Instruction Type:Provider Instructions for Treatment How to access health informa tion online Indication:Other and unspecified hyperlipidemia Start:19-Nov-2013 Instruction Type:Patient Education How to access health informa tion online - Detail Indication:Other and unspecified hyperlipidemia Start:19-Nov-2013 Instruction Type:Patient Education Patient Instructions Indication:GERD (gastroesophageal reflux disease) Start:19-Nov-2013 Instruction Type:Provider Instructions for Treatment Patient Instructions Indication:Impaired Fasting Glucose Start:25-Apr-2013 Instruction Type:Provider Instructions for Treatment Patient Instructions Indication:Hypertension Start:14-Aug-2012 Instruction Type:Provider Instructions for Treatment Patient Instructions Indication:Impaired Fasting Glucose Start:03-Apr-2012 Instruction Type:Provider Instructions for Treatment Name Dates Details How to access health informa tion online Indication:Neuropathy Start:18-Mar-2020 Instruction Type:Patient Education Patient Instructions Indication:Neuropathy Start:18-Mar-2020 Instruction Type:Provider Instructions for Treatment How to access health informa tion online Indication:Skin tear of right upper extremity Start:02-Jan-2020 Instruction Type:Patient Education How to access health informa tion online - Detail Indication:Skin tear of right upper extremity Start:02-Jan-2020 Instruction Type:Patient Education Patient Instructions Indication:Skin tear of right upper extremity Start:02-Jan-2020 Instruction Type:Provider Instructions for Treatment How to access health informa tion online Indication:BMI 25.0-25.9,adult Start:24-Oct-2019 Instruction Type:Patient Education How to access health informa tion online - Detail Indication:BMI 25.0-25.9,adult Start:24-Oct-2019 Instruction Type:Patient Education Patient Instructions Indication:BMI 25.0-25.9,adult Start:24-Oct-2019 Instruction Type:Provider Instructions for Treatment How to access health informa tion online Indication:Nonsmoker Start:17-Jul-2019 Instruction Type:Patient Education How to access health informa tion online - Detail Indication:Nonsmoker Start:17-Jul-2019 Instruction Type:Patient Education Patient Instructions Indication:Nonsmoker Start:17-Jul-2019 Instruction Type:Provider Instructions for Treatment How to access health informa tion online Indication:Joint pain Start:10-Jul-2019 Instruction Type:Patient Education How to access health informa tion online - Detail Indication:Joint pain Start:10-Jul-2019 Instruction Type:Patient Education Patient Instructions Indication:Joint pain Start:10-Jul-2019 Instruction Type:Provider Instructions for Treatment How to access health informa tion online Indication:Sore throat Start:10-Nov-2015 Instruction Type:Patient Education How to access health informa tion online - Detail Indication:Sore throat Start:10-Nov-2015 Instruction Type:Patient Education Patient Instructions Indication:Sore throat Start:10-Nov-2015 Instruction Type:Provider Instructions for Treatment How to access health informa tion online Indication:PRE-OPERATIVE EXAMINATION, UNSPECIFIED Start:07-Mar-2015 Instruction Type:Patient Education How to access health informa tion online - Detail Indication:PRE-OPERATIVE EXAMINATION, UNSPECIFIED Start:07-Mar-2015 Instruction Type:Patient Education Patient Instructions Indication:PRE-OPERATIVE EXAMINATION, UNSPECIFIED Start:07-Mar-2015 Instruction Type:Provider Instructions for Treatment Patient Instructions Indication:Hypertension Start:08-Jul-2014 Instruction Type:Provider Instructions for Treatment How to access health informa tion online Indication:Other and unspecified hyperlipidemia Start:19-Nov-2013 Instruction Type:Patient Education How to access health informa tion online - Detail Indication:Other and unspecified hyperlipidemia Start:19-Nov-2013 Instruction Type:Patient Education Patient Instructions Indication:GERD (gastroesophageal reflux disease) Start:19-Nov-2013 Instruction Type:Provider Instructions for Treatment Patient Instructions Indication:Impaired Fasting Glucose Start:25-Apr-2013 Instruction Type:Provider Instructions for Treatment Patient Instructions Indication:Hypertension Start:14-Aug-2012 Instruction Type:Provider Instructions for Treatment Patient Instructions Indication:Impaired Fasting Glucose Start:03-Apr-2012 Instruction Type:Provider Instructions for Treatment Name Dates Details How to access health informa tion online Indication:Neuropathy Start:18-Mar-2020 Instruction Type:Patient Education Patient Instructions Indication:Neuropathy Start:18-Mar-2020 Instruction Type:Provider Instructions for Treatment How to access health informa tion online Indication:Skin tear of right upper extremity Start:02-Jan-2020 Instruction Type:Patient Education How to access health informa tion online - Detail Indication:Skin tear of right upper extremity Start:02-Jan-2020 Instruction Type:Patient Education Patient Instructions Indication:Skin tear of right upper extremity Start:02-Jan-2020 Instruction Type:Provider Instructions for Treatment How to access health informa tion online Indication:BMI 25.0-25.9,adult Start:24-Oct-2019 Instruction Type:Patient Education How to access health informa tion online - Detail Indication:BMI 25.0-25.9,adult Start:24-Oct-2019 Instruction Type:Patient Education Patient Instructions Indication:BMI 25.0-25.9,adult Start:24-Oct-2019 Instruction Type:Provider Instructions for Treatment How to access health informa tion online Indication:Nonsmoker Start:17-Jul-2019 Instruction Type:Patient Education How to access health informa tion online - Detail Indication:Nonsmoker Start:17-Jul-2019 Instruction Type:Patient Education Patient Instructions Indication:Nonsmoker Start:17-Jul-2019 Instruction Type:Provider Instructions for Treatment How to access health informa tion online Indication:Joint pain Start:10-Jul-2019 Instruction Type:Patient Education How to access health informa tion online - Detail Indication:Joint pain Start:10-Jul-2019 Instruction Type:Patient Education Patient Instructions Indication:Joint pain Start:10-Jul-2019 Instruction Type:Provider Instructions for Treatment How to access health informa tion online Indication:Sore throat Start:10-Nov-2015 Instruction Type:Patient Education How to access health informa tion online - Detail Indication:Sore throat Start:10-Nov-2015 Instruction Type:Patient Education Patient Instructions Indication:Sore throat Start:10-Nov-2015 Instruction Type:Provider Instructions for Treatment How to access health informa tion online Indication:PRE-OPERATIVE EXAMINATION, UNSPECIFIED Start:07-Mar-2015 Instruction Type:Patient Education How to access health informa tion online - Detail Indication:PRE-OPERATIVE EXAMINATION, UNSPECIFIED Start:07-Mar-2015 Instruction Type:Patient Education Patient Instructions Indication:PRE-OPERATIVE EXAMINATION, UNSPECIFIED Start:07-Mar-2015 Instruction Type:Provider Instructions for Treatment Patient Instructions Indication:Hypertension Start:08-Jul-2014 Instruction Type:Provider Instructions for Treatment How to access health informa tion online Indication:Other and unspecified hyperlipidemia Start:19-Nov-2013 Instruction Type:Patient Education How to access health informa tion online - Detail Indication:Other and unspecified hyperlipidemia Start:19-Nov-2013 Instruction Type:Patient Education Patient Instructions Indication:GERD (gastroesophageal reflux disease) Start:19-Nov-2013 Instruction Type:Provider Instructions for Treatment Patient Instructions Indication:Impaired Fasting Glucose Start:25-Apr-2013 Instruction Type:Provider Instructions for Treatment Patient Instructions Indication:Hypertension Start:14-Aug-2012 Instruction Type:Provider Instructions for Treatment Patient Instructions Indication:Impaired Fasting Glucose Start:03-Apr-2012 Instruction Type:Provider Instructions for Treatment Name Dates Details Patient Instructions Indication:Other and unspecified hyperlipidemia Start:28-Apr-2020 Instruction Type:Provider Instructions for Treatment How to Access Health Informa tion Online using Patient Portal and [employer] Apps Indication:Other and unspecified hyperlipidemia Start:28-Apr-2020 Instruction Type:Patient Education How to access health informa tion online Indication:Neuropathy Start:18-Mar-2020 Instruction Type:Patient Education Patient Instructions Indication:Neuropathy Start:18-Mar-2020 Instruction Type:Provider Instructions for Treatment How to access health informa tion online Indication:Skin tear of right upper extremity Start:02-Jan-2020 Instruction Type:Patient Education How to access health informa tion online - Detail Indication:Skin tear of right upper extremity Start:02-Jan-2020 Instruction Type:Patient Education Patient Instructions Indication:Skin tear of right upper extremity Start:02-Jan-2020 Instruction Type:Provider Instructions for Treatment How to access health informa tion online Indication:BMI 25.0-25.9,adult Start:24-Oct-2019 Instruction Type:Patient Education How to access health informa tion online - Detail Indication:BMI 25.0-25.9,adult Start:24-Oct-2019 Instruction Type:Patient Education Patient Instructions Indication:BMI 25.0-25.9,adult Start:24-Oct-2019 Instruction Type:Provider Instructions for Treatment How to access health informa tion online Indication:Nonsmoker Start:17-Jul-2019 Instruction Type:Patient Education How to access health informa tion online - Detail Indication:Nonsmoker Start:17-Jul-2019 Instruction Type:Patient Education Patient Instructions Indication:Nonsmoker Start:17-Jul-2019 Instruction Type:Provider Instructions for Treatment How to access health informa tion online Indication:Joint pain Start:10-Jul-2019 Instruction Type:Patient Education How to access health informa tion online - Detail Indication:Joint pain Start:10-Jul-2019 Instruction Type:Patient Education Patient Instructions Indication:Joint pain Start:10-Jul-2019 Instruction Type:Provider Instructions for Treatment How to access health informa tion online Indication:Sore throat Start:10-Nov-2015 Instruction Type:Patient Education How to access health informa tion online - Detail Indication:Sore throat Start:10-Nov-2015 Instruction Type:Patient Education Patient Instructions Indication:Sore throat Start:10-Nov-2015 Instruction Type:Provider Instructions for Treatment How to access health informa tion online Indication:PRE-OPERATIVE EXAMINATION, UNSPECIFIED Start:07-Mar-2015 Instruction Type:Patient Education How to access health informa tion online - Detail Indication:PRE-OPERATIVE EXAMINATION, UNSPECIFIED Start:07-Mar-2015 Instruction Type:Patient Education Patient Instructions Indication:PRE-OPERATIVE EXAMINATION, UNSPECIFIED Start:07-Mar-2015 Instruction Type:Provider Instructions for Treatment Patient Instructions Indication:Hypertension Start:08-Jul-2014 Instruction Type:Provider Instructions for Treatment How to access health informa tion online Indication:Other and unspecified hyperlipidemia Start:19-Nov-2013 Instruction Type:Patient Education How to access health informa tion online - Detail Indication:Other and unspecified hyperlipidemia Start:19-Nov-2013 Instruction Type:Patient Education Patient Instructions Indication:GERD (gastroesophageal reflux disease) Start:19-Nov-2013 Instruction Type:Provider Instructions for Treatment Patient Instructions Indication:Impaired Fasting Glucose Start:25-Apr-2013 Instruction Type:Provider Instructions for Treatment Patient Instructions Indication:Hypertension Start:14-Aug-2012 Instruction Type:Provider Instructions for Treatment Patient Instructions Indication:Impaired Fasting Glucose Start:03-Apr-2012 Instruction Type:Provider Instructions for Treatment Name Dates Details Patient Instructions Indication:Other and unspecified hyperlipidemia Start:28-Apr-2020 Instruction Type:Provider Instructions for Treatment How to Access Health Informa tion Online using Patient Portal and [employer] Apps Indication:Other and unspecified hyperlipidemia Start:28-Apr-2020 Instruction Type:Patient Education How to access health informa tion online Indication:Neuropathy Start:18-Mar-2020 Instruction Type:Patient Education Patient Instructions Indication:Neuropathy Start:18-Mar-2020 Instruction Type:Provider Instructions for Treatment How to access health informa tion online Indication:Skin tear of right upper extremity Start:02-Jan-2020 Instruction Type:Patient Education How to access health informa tion online - Detail Indication:Skin tear of right upper extremity Start:02-Jan-2020 Instruction Type:Patient Education Patient Instructions Indication:Skin tear of right upper extremity Start:02-Jan-2020 Instruction Type:Provider Instructions for Treatment How to access health informa tion online Indication:BMI 25.0-25.9,adult Start:24-Oct-2019 Instruction Type:Patient Education How to access health informa tion online - Detail Indication:BMI 25.0-25.9,adult Start:24-Oct-2019 Instruction Type:Patient Education Patient Instructions Indication:BMI 25.0-25.9,adult Start:24-Oct-2019 Instruction Type:Provider Instructions for Treatment How to access health informa tion online Indication:Nonsmoker Start:17-Jul-2019 Instruction Type:Patient Education How to access health informa tion online - Detail Indication:Nonsmoker Start:17-Jul-2019 Instruction Type:Patient Education Patient Instructions Indication:Nonsmoker Start:17-Jul-2019 Instruction Type:Provider Instructions for Treatment How to access health informa tion online Indication:Joint pain Start:10-Jul-2019 Instruction Type:Patient Education How to access health informa tion online - Detail Indication:Joint pain Start:10-Jul-2019 Instruction Type:Patient Education Patient Instructions Indication:Joint pain Start:10-Jul-2019 Instruction Type:Provider Instructions for Treatment How to access health informa tion online Indication:Sore throat Start:10-Nov-2015 Instruction Type:Patient Education How to access health informa tion online - Detail Indication:Sore throat Start:10-Nov-2015 Instruction Type:Patient Education Patient Instructions Indication:Sore throat Start:10-Nov-2015 Instruction Type:Provider Instructions for Treatment How to access health informa tion online Indication:PRE-OPERATIVE EXAMINATION, UNSPECIFIED Start:07-Mar-2015 Instruction Type:Patient Education How to access health informa tion online - Detail Indication:PRE-OPERATIVE EXAMINATION, UNSPECIFIED Start:07-Mar-2015 Instruction Type:Patient Education Patient Instructions Indication:PRE-OPERATIVE EXAMINATION, UNSPECIFIED Start:07-Mar-2015 Instruction Type:Provider Instructions for Treatment Patient Instructions Indication:Hypertension Start:08-Jul-2014 Instruction Type:Provider Instructions for Treatment How to access health informa tion online Indication:Other and unspecified hyperlipidemia Start:19-Nov-2013 Instruction Type:Patient Education How to access health informa tion online - Detail Indication:Other and unspecified hyperlipidemia Start:19-Nov-2013 Instruction Type:Patient Education Patient Instructions Indication:GERD (gastroesophageal reflux disease) Start:19-Nov-2013 Instruction Type:Provider Instructions for Treatment Patient Instructions Indication:Impaired Fasting Glucose Start:25-Apr-2013 Instruction Type:Provider Instructions for Treatment Patient Instructions Indication:Hypertension Start:14-Aug-2012 Instruction Type:Provider Instructions for Treatment Patient Instructions Indication:Impaired Fasting Glucose Start:03-Apr-2012 Instruction Type:Provider Instructions for Treatment Name Dates Details Patient Instructions Indication:Other and unspecified hyperlipidemia Start:28-Apr-2020 Instruction Type:Provider Instructions for Treatment How to Access Health Informa tion Online using Patient Portal and [employer] Apps Indication:Other and unspecified hyperlipidemia Start:28-Apr-2020 Instruction Type:Patient Education How to access health informa tion online Indication:Neuropathy Start:18-Mar-2020 Instruction Type:Patient Education Patient Instructions Indication:Neuropathy Start:18-Mar-2020 Instruction Type:Provider Instructions for Treatment How to access health informa tion online Indication:Skin tear of right upper extremity Start:02-Jan-2020 Instruction Type:Patient Education How to access health informa tion online - Detail Indication:Skin tear of right upper extremity Start:02-Jan-2020 Instruction Type:Patient Education Patient Instructions Indication:Skin tear of right upper extremity Start:02-Jan-2020 Instruction Type:Provider Instructions for Treatment How to access health informa tion online Indication:BMI 25.0-25.9,adult Start:24-Oct-2019 Instruction Type:Patient Education How to access health informa tion online - Detail Indication:BMI 25.0-25.9,adult Start:24-Oct-2019 Instruction Type:Patient Education Patient Instructions Indication:BMI 25.0-25.9,adult Start:24-Oct-2019 Instruction Type:Provider Instructions for Treatment How to access health informa tion online Indication:Nonsmoker Start:17-Jul-2019 Instruction Type:Patient Education How to access health informa tion online - Detail Indication:Nonsmoker Start:17-Jul-2019 Instruction Type:Patient Education Patient Instructions Indication:Nonsmoker Start:17-Jul-2019 Instruction Type:Provider Instructions for Treatment How to access health informa tion online Indication:Joint pain Start:10-Jul-2019 Instruction Type:Patient Education How to access health informa tion online - Detail Indication:Joint pain Start:10-Jul-2019 Instruction Type:Patient Education Patient Instructions Indication:Joint pain Start:10-Jul-2019 Instruction Type:Provider Instructions for Treatment How to access health informa tion online Indication:Sore throat Start:10-Nov-2015 Instruction Type:Patient Education How to access health informa tion online - Detail Indication:Sore throat Start:10-Nov-2015 Instruction Type:Patient Education Patient Instructions Indication:Sore throat Start:10-Nov-2015 Instruction Type:Provider Instructions for Treatment How to access health informa tion online Indication:PRE-OPERATIVE EXAMINATION, UNSPECIFIED Start:07-Mar-2015 Instruction Type:Patient Education How to access health informa tion online - Detail Indication:PRE-OPERATIVE EXAMINATION, UNSPECIFIED Start:07-Mar-2015 Instruction Type:Patient Education Patient Instructions Indication:PRE-OPERATIVE EXAMINATION, UNSPECIFIED Start:07-Mar-2015 Instruction Type:Provider Instructions for Treatment Patient Instructions Indication:Hypertension Start:08-Jul-2014 Instruction Type:Provider Instructions for Treatment How to access health informa tion online Indication:Other and unspecified hyperlipidemia Start:19-Nov-2013 Instruction Type:Patient Education How to access health informa tion online - Detail Indication:Other and unspecified hyperlipidemia Start:19-Nov-2013 Instruction Type:Patient Education Patient Instructions Indication:GERD (gastroesophageal reflux disease) Start:19-Nov-2013 Instruction Type:Provider Instructions for Treatment Patient Instructions Indication:Impaired Fasting Glucose Start:25-Apr-2013 Instruction Type:Provider Instructions for Treatment Patient Instructions Indication:Hypertension Start:14-Aug-2012 Instruction Type:Provider Instructions for Treatment Patient Instructions Indication:Impaired Fasting Glucose Start:03-Apr-2012 Instruction Type:Provider Instructions for Treatment Chief Complaint and Reason for Visit Chief Complaint NIGHT SWEATS Chief Complaint EORDER RASH/BITE ON LOWER LT SIDE OF BACK LUMBAR FX Reason for Visit Shingles Chief Complaint EORDER RASH/BITE ON LOWER LT SIDE OF BACK LUMBAR FX CEREBELLAR STROKE SYNDROME CEREBELLAR STROKE SYNDROME Reason for Visit Shingles Cerebellar stroke syndrome DIFFICULTY AMBULATING GERD (gastroesophageal reflux disease) Hypertension Chief Complaint EORDER RASH/BITE ON LOWER LT SIDE OF BACK LUMBAR FX CEREBELLAR STROKE SYNDROME vertigo CEREBELLAR STROKE SYNDROME, DIFFICULTY AMBULATING LUMBAR COMPRESSION FRACTURE Reason for Visit Shingles DIFFICULTY AMBULATING Hypokalemia Vertigo Chief Complaint VENTRICULAR PREMATUR E DEPOLARIZATION PVC Chief Complaint Admit Date 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 ortho panda richard May 15, 2024 10:17am PVD August 20, 2024 9:50am Reason for Visit Admit Date Preoperative clearance May 15 10:17am Advance Directives No Advanced Directives Records Found Advance Directive Response Recorded Date/ Time Living Will No April 15, 2 019 1:49pm Power of House Supervisor No April 15, 2019 1:49pm Advance Directive Response Recorded Date/ Time Living Will No January 04, 2022 5:54pm Power of House Supervisor No December 5:54pm Advance Directive Response Recorded Date/ Time Name of Medical Power of House Supervisor Divya Shieldsler January 04, 2022 9:37pm Living Will Yes January 04, 2022 9:37pm Power of House Supervisor Yes December 9:37pm Advance Directive Response Recorded Date/ Time Living Will Yes January 04, 2022 8:37pm Power of House Supervisor Yes December 8:37pm Advance Directive Response Recorded Date/ Time Living Will Yes January 04, 2022 9:37pm Power of House Supervisor Yes December 9:37pm Summary Purpose Reason for Referral Specialty Diagnoses / Procedures Referred By Rochelle t Referred To Contact Radiology Diagnoses Occlusion and stenosis of right carotid artery Procedures CT cardiac scoring wo IV contrast Fast, Barbara A, DO [address] [address] Referral ID Status Reason Start Date Expiration Date Visits Requested Visits Authorized [id number] Authorized Perform Procedure 3 04/12/2024 1 1 Additional Source Comments Goals (unrecognized section and content) Goals may be documented in a n alternate sectionGoals may be documented in an alternate sectionGoals may be documented in an alternate sectionGoals may be documented in an alternate sectionGoals may be documented in an alternate sectionGoals may be documented in an alternate sectionGoals may be documented in an alternate section No data available for this section No data available for this section No data available for this section No data available for this section No data available for this section No data available for this section No data available for this sectionGoals may be documented in an alternate section Source Comments (unrecognize d section and content) In the event this informatio n is protected by the Federal Confidentiality of Alcohol and Drug Abuse Patient Records regulations: The Federal rules restrict any use of the information to criminally investigate or prosecute any alcohol or drug abuse patient.[facility] the event this information is protected by the Federal Confidentiality of Alcohol and Drug Abuse Patient Records regulations: The Federal rules restrict any use of the information to criminally investigate or prosecute any alcohol or drug abuse patient.[facility] Reason for Visit (unrecogniz ed section and content) Reason Comments New Patient LESION, SKIN Specialty Diagnoses / Procedures Referred By Contac t Referred To Contact Podiatry / PODIATRY Diagnoses Blister of foot CONSULT LT FOOT BLISTER Procedures OFFICE/OUTPATIENT NEW HIGH MDM 60-74 MINUTES OFFICE/OUTPATIENT ESTABLISHED HIGH MDM 40-54 MIN KETTY NEW NO XRAY MD Camryn Grijalva Matthew [address] [place] [address] Referral ID Status Reason Start Date Expiration Date V isits Requested Visits Authorized [id number] Authorized 12/18/2021 04/17/2022 99 99 Reason Comments Established Patient Follow Up Callous nail care Specialty Diagnoses / Procedures Referred By Contac t Referred To Contact Podiatry / PODIATRY Diagnoses follow up, foot pain Procedures KETTY EST [place] [address] Referral ID Status Reason Start Date Expiration Date V isits Requested Visits Authorized [id number] Outside PCP 06/03/2022 09/01/2022 1 1 Specialty Diagnoses / Procedures Referred By Contac t Referred To Contact Radiology Diagnoses Occlusion and stenosis of right carotid artery Procedures CT cardiac scoring wo IV contrast Barbara Mills DO [address] [facility] [address] [place] [address] Referral ID Status Reason Start Date Expiration Date Visits Requested Visits Authorized [id number] Authorized Perform Procedure 3 04/12/2024 1 1 Care Teams (unrecognized sec tion and content) Front End Developer Designer Relationship Specialty Start Date End Date Giselle Garrison MD Internal Medicine 11/14/17 Front End Developer Designer Relationship Specialty Start Date End Date Giselle Garrison MD Internal Medicine 11/14/17 Team Status: Active Member Role Status Dates Dr. Giselle Garrison MD Family Provider Active Dr. Barbara Mills DO Primary Care Provider Active Team Status: Active Member Role Status Dates Dr. Barbara Mills DO Primary Care Provider Active Dr. Yadi Crenshaw MD Attending Provider Active Team Status: Active Member Role Status Dates Dr. Barbara Mills DO Primary Care Provider, Attending P jennifer Active Team Status: Inactive Member Role Status Dates Dr. Barbara Mills DO Primary Care Provide r, Attending Provider, Referring Provider Active Team Status: Inactive Member Role Status Dates Dr. Barbara Mills DO Primary Care Provider, Attending P jennifer Active Front End Developer Designer Relationship Specialty Start Date End Date Barbara Mills DO [address] [facility] [address] [place], [place] [address] PCP - General Internal Medicine 04/20/23 Team Status: Inactive Member Role Status Dates Dr. Barbara Mills DO Primary Care Provider Active ENRIKE Spangler Attending Provider Active Team Status: Active Member Role Status Dates ENRIKE Spangler Primary Care Provider Active Team Status: Inactive Member Role Status Dates ENRIKE Spangler Primary Care Provider Active Start: May 15, 2024 End: May 15, 2024 ENRIKE Spangler Referring Provider Active Start: May 15, 2024 End: May 15, 2024 Dr. Favian Snyder , DO Attending Provider Active S tart: May 15, 2024 End: May 15, 2024 Team Status: Inactive Member Role Status Dates ENRIKE Spangler Primary Care Provider Active Start: August 20, 2024 End: August 20, 2024 ENRIKE Spangler Attending Provider Active Start: August 20, 2024 End: August 20, 2024 ENRIKE Spangler Referring Provider Active Start: August 20, 2024 End: August 20, 2024 (unrecognized sect ion and content) No Status Records FoundNo Status Records FoundNo Status Records FoundNo Status Records FoundNo Status Records FoundNo Status Records Found INFORMATION SOURCE (unrecogn ized section and content) DATE CREATED AUTHOR 06/04/2022 [facility] DATE CREATED AUTHOR AUTHOR'S ORGANIZ ATION 09/01/2022 [facility] DATE CREATED AUTHOR AUTHOR'S ORGANIZ ATION 10/19/2023 [facility] ([place] DATE CREATED AUTHOR AUTHOR'S ORGANIZ ATION 01/07/2024 [facility] DATE CREATED AUTHOR AUTHOR'S ORGANIZ ATION 08/05/2024 [facility] DATE CREATED AUTHOR AUTHOR'S ORGANIZ ATION 11/10/[address] [facility] FOR RECORDS PERTAINING TO PATIENTS WHO ARE OR HAVE BEEN ENROLLED IN A CHEMICAL DEPENDENCY/SUBSTANCEABUSE PROGRAM, SOME INFORMATION MAY BE OMITTED. This clinical summary was aggregated from multiple sources. Caution should be exercised in using it in the provision of clinical care. This summary normalizes information from multiple sources, and as a consequence, information in this document may materially change the coding, format and clinical context of patient data. In addition, data may be omitted in some cases. CLINICAL DECISIONS SHOULD BE BASED ON THE PRIMARY CLINICAL RECORDS. [email or web address] provides no warranty or guarantee of the accuracy or completeness of information in this document.
== END | disposition home or self-care (01) ==
LOC: SL 19:51
PROVIDERS: PCP Nurse Practitioner Family; Referring Provider Nurse Practitioner Family; Visit Provider Nurse Practitioner Family
DX: G47.10 Hypersomnia, unspecified (principal)
CPT/HCPCS: 95810

== ENCOUNTER → 2024-12-27 | Outpatient (CLI) | payer MEDICARE, SELFPAY | END | disposition home or self-care (01) | PROVIDERS: PCP Nurse Practitioner Family; Referring Provider Nurse Practitioner Family; Visit Provider Nurse Practitioner Family | DX: G47.33 Obstructive sleep apnea (adult) (pediatric) (principal) | CPT/HCPCS: 95811 ==